=== PATIENT | female | born 1950 | race Caucasian/White ===

== ENCOUNTER → 2017-10-01 | Outpatient (CLI) | payer BC ==
[~2017-10-01] MED LIST: CALC-656 PO; CLON1TAB2 PO; DESV50TA PO; FENO135C PO; LVT.05T PO; NF-ESOM40C PO; TRM50T PO
== END ==
LOC: RAD 07:01
PROVIDERS: ATTEND Nurse Practitioner Family
DX: Z12.31 Encounter for screening mammogram for malignant neoplasm of breast (principal)
CPT/HCPCS: 77067

== ENCOUNTER 2018-01-28 10:30 | Outpatient (CLI) | payer BC ==
[~2018-01-28] VITALS: Ht 165.1 cm; Wt 72.6 kg
[2018-01-28] MEDS ORDERED: CITA40TA11 PO (10:54)
[2018-01-28] MEDS ORDERED: LEVO50TA6 PO (10:54)
[2018-01-28] MEDS ORDERED: FENO134C PO (10:54)
[2018-01-28] MEDS ORDERED: PANT40TA3 PO (10:54)
[2018-01-28] MEDS ORDERED: CLON1TAB3 PO (10:54)
== END 2018-01-28 11:06 ==
LOC: PREOP 10:30
PROVIDERS: ATTEND Specialist
DX: Z01.818 Encounter for other preprocedural examination (principal); H25.89 Other age-related cataract

== ENCOUNTER 2018-02-01 11:22 | Day surgery (SDC) | payer MEDICARE, OTHER ==
[~2018-02-01] VITALS: Ht 165.1 cm; Wt 72.6 kg
[~2018-02-01 11:22] MED LIST changes: +CITA40TA11 PO; +CLON1TAB3 PO; +FENO134C PO; +LEVO50TA6 PO; +PANT40TA3 PO
[2018-02-01] MEDS ORDERED: VANCOMYCIN/BSS (COMPOUNDED) 10 MG/ML SYR OP ONE (11:30)
[2018-02-01] MEDS ORDERED: TIMOLOL MALEATE 0.5% 5 ML (TIMOPTIC) BTL OU PRN (11:30)
[2018-02-01] MEDS ORDERED: EPINEPHrine INJECTION 1 MG/ML AMP INJ ONE (11:30)
[2018-02-01] MEDS ORDERED: POVIDONE (BETADINE) OPHTH SOLN 5% 30 ML OP ONE (11:30)
[2018-02-01 11:35] VITALS: BP 130/92
[2018-02-01] MEDS ORDERED: LIDOCAINE PF 1% 2 ML VIAL (OR ONLY) IR PRN (11:45)
[2018-02-01] MEDS: TETRACAINE 0.5% OPHTH SOLN 4 ML BTL (SINGLE DOSE ONLY) OU PRN ×4 (11:46→12:09)
[2018-02-01] MEDS: PHENYLEPHRINE 10% OPHTH (NEO-SYN) 5 ML BTL OU SCH ×3 (11:55→12:09)
[2018-02-01] MEDS: CYCLOPENTOLATE 1% (CYCLOGYL) 2 ML DROPS OP SCH ×3 (11:55→12:09)
--- NOTE | 2018-02-01 12:30 | Ophthalmologist Pre-Op Note ---
Pre-Operative Progress Note H&P Reviewed The H&P was reviewed, patient examined and no changes noted. Date H&P Reviewed: Feb 01, 2018 Time H&P Reviewed: 12:29 Pre-Op Dx Cataract, Left Eye PAYTON GILLESPIE MD Feb 01, 2018 12:30
[2018-02-01] MEDS ORDERED: MIDAZOLAM 2 MG/2 ML (VERSED) VIAL ONE (12:33)
--- NOTE | 2018-02-01 12:56 | Ophthalmology Operative Report ---
Cataract removal/placement IOL PREOPERATIVE DIAGNOSIS: Cataract Left Eye POSTOPERATIVE DIAGNOSIS: Cataract Left Eye PROCEDURE: Cataract removal and placement of posterior chamber implant, left eye SURGEON: Guy Gillespie ANESTHESIA: Topical with sedation COMPLICATIONS: None ESTIMATED BLOOD LOSS: Minimal DESCRIPTION OF PROCEDURE: After proper informed consent was obtained, the patient, a 67 female, was taken to the Operating Room and the left eye was anesthetized with tetracaine. They left eye was then prepped and draped in the usual manner. A wire lid speculum was placed. A paracentesis was made at the left hand position. Preservative free lidocaine was injected into the anterior chamber followed by viscoelastic. A clear corneal incision was made in the temporal position. A capsulorrhexis was preformed and the central nuclear and cortical material were removed. The posterior capsule was polished and Betito 27.5 [id number] IOL was placed into the capsular bag. The residual viscoelastic was aspirated and balanced saline solution was injected into the anterior chamber. 1.0 mg of Vancomycin (10mg/ 1.0ml) was injected into the anterior chamber. The wound was checked and found to be water tight. The patient tolerated the procedure well without complications. GUY GILLESPIE MD Feb 01, 2018 12:56
[2018-02-01 13:05] VITALS: BP 123/71
--- NOTE | 2018-02-01 14:19 | Anesthesia-General Post-Op ---
MAC Patient Condition Mental Status/LOC: Same as Preop Cardiovascular: Satisfactory Nausea/Vomiting: Absent Respiratory: Satisfactory Pain: Controlled Complications: Absent Post Op Complications Complications None Follow Up Care/Instructions Patient Instructions None needed. Anesthesiology Discharge Order Discharge Order Patient is doing well, no complaints, stable vital signs, no apparent adverse anesthesia problems. No complications reported per nursing. ELE BEST CRNA Feb 01, 2018 14:18
== END 2018-02-01 13:10 | disposition home or self-care (01) ==
LOC: SDC 11:22
PROVIDERS: ATTEND Specialist
DX: H26.9 Unspecified cataract (principal); R51 Headache; F32.9 Major depressive disorder, single episode, unspecified; E07.9 Disorder of thyroid, unspecified; F17.210 Nicotine dependence, cigarettes, uncomplicated; Z79.899 Other long term (current) drug therapy

== ENCOUNTER → 2018-05-31 | Outpatient (CLI) | payer MEDICARE, OTHER ==
[~2018-05-31] MED LIST changes: -CLON1TAB3 PO; +CLON1TAB4 PO
--- NOTE | 2018-05-31 08:04 | Diagnostic Imaging Report ---
Indication: Constipation. No priors. The colonic fecal load is not pathologically elevated. No dilated air-containing small bowel. The stomach was nondistended. 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 Pelvic phleboliths noted no suspicious calculi. Impression: No evidence for obstruction, impaction or substantial abnormal fecal load. No acute finding identified. Dictated by: Dictated on workstation # [id number]
== END ==
LOC: RAD 07:42
PROVIDERS: ATTEND Nurse Practitioner Family
DX: K59.00 Constipation, unspecified (principal)
CPT/HCPCS: 74018

== ENCOUNTER → 2018-08-12 | Outpatient (CLI) | payer MEDICARE, OTHER ==
[~2018-08-12] VITALS: Ht 165.1 cm; Wt 72.6 kg
[~2018-08-12] MED LIST changes: +APIX5TAB PO; +CLON1TAB13 PO; -CLON1TAB4 PO; +DOCU100T7 PO; +NS IV 1000 ML 2,000 ML ONE; +ONDANSETRON 4 MG/2 ML (SDV) Z0FRAN ONE; +PANTOPRAZOLE 40 MG (PROTONIX) VIAL IV ONE; +PANTOPRAZOLE 40 MG (PROTONIX) VIAL ONE; +water pill PO
[2018-08-12] MEDS: NS IV 1000 ML 1,000 ML IV SCH ×2 (10:44→11:41)
[2018-08-12] MEDS: ONDANSETRON 4 MG/2 ML (SDV) Z0FRAN IV PRN ×2 (10:45→11:31)
[2018-08-12 11:53] VITALS: BP 104/62
== END ==
LOC: SDC 10:00
PROVIDERS: ATTEND Nurse Practitioner Family
DX: R11.2 Nausea with vomiting, unspecified (principal); E86.0 Dehydration
CPT/HCPCS: 96361; 96374; 96375

== ENCOUNTER 2018-08-13 11:34 | Day surgery (SDC) | payer MEDICARE, OTHER ==
[~2018-08-13] VITALS: Ht 165.1 cm; Wt 72.6 kg
[~2018-08-13 11:34] MED LIST changes: -APIX5TAB PO; -DOCU100T7 PO; -NS IV 1000 ML 2,000 ML ONE; -ONDANSETRON 4 MG/2 ML (SDV) Z0FRAN ONE; -PANTOPRAZOLE 40 MG (PROTONIX) VIAL IV ONE; -PANTOPRAZOLE 40 MG (PROTONIX) VIAL ONE; -water pill PO
[2018-08-13] MEDS ORDERED: NS IV 500 ML 500 ML IV PRN (11:44)
[2018-08-13] MEDS ORDERED: fentaNYL INJECTION 100 MCG/2 ML AMP IVP ONE (11:45)
[2018-08-13] MEDS ORDERED: HURRICAINE EXT TUBE (BENZOCAINE) XX PRN (11:45)
[2018-08-13] MEDS ORDERED: MIDAZOLAM 2 MG/2 ML (VERSED) VIAL IVP ONE (11:45)
[2018-08-13] MEDS ORDERED: NS IV 500 ML 500 ML ONE (11:53)
--- OUTSIDE RECORDS SUMMARY | 2018-08-13 12:11 | XMS REPORT | Clinical Summary ---
Author Author [facility] Organization [facility] Address Unknown Phone Unavailable Care Team Providers Care Relief Worker Name Role Phone Jeny Garcia MD PCP Source Comments Some departments are not documenting in the electronic medical record. If you do not see the information that you expected, contact Release of Information in the Health Information Management department at [phone] for further assistance in locating additional records.[facility] Allergies Active Allergy Reactions Severity Noted Date Comments Codeine VOMITING Low Current Medications Prescription Sig. Disp. Refills Start End Date Status Date clonazePAM (KLONOPIN) 1 Take 1 tablet by mouth Active mg tablet daily as needed for panic attacks HYDROcodone/acetaminophen Take 1 tablet by mouth 06/27/20 Active (+) (NORCO) 10/325 mg every 6 hours as needed 18 tablet levothyroxine (SYNTHROID) Take 50 mcg by mouth 03/22/20 Active 50 mcg tablet daily 30 minutes before [address] Take 40 mg by mouth 03/22/20 Active (PROTONIX) 40 mg tablet daily. 18 calcium carbonate (TUMS) Chew 1 tablet by mouth Active 500 mg (200 mg elemental twice daily. calcium) chewable tablet nicotine (NICODERM CQ Apply 1 patch to top of Active STEP 1) 21 mg/day patch skin as directed every 24 hours. acetaminophen (TYLENOL) Take 1 tablet by mouth Active 325 mg tablet every 6 hours as needed (headache). docusate (COLACE) 100 mg Take 100 mg by mouth Active capsule twice daily. ergocalciferol (VITAMIN Take 1 capsule by mouth Active D-2) 50,000 unit capsule every . carboxymethylcellulose Apply 1 drop to both eyes Active (REFRESH PLUS) 0.5 % dpet as Needed. apixaban (ELIQUIS) 5 mg Take one tablet by mouth 60 tablet 3 07/08/20 Active tablet twice daily. 18 furosemide (LASIX) 40 mg Take one tablet by mouth 90 tablet 3 Active tablet every morning. 18 Active Problems Problem Noted Date Bilateral ureteral obstruction 08/02/2018 Anxiety 07/07/2018 Major depressive disorder with single episode, in remission ([facility]) 07/07/2018 Gastroesophageal reflux disease without esophagitis 07/07/2018 Hypothyroidism due to acquired atrophy of thyroid 07/07/2018 Vitamin D deficiency 07/07/2018 MEE (acute kidney injury) ([facility]) 07/07/2018 Pyuria 07/07/2018 Volume overload 07/07/2018 Acute deep vein thrombosis (DVT) of distal end of right lower extremity ([facility]) Debility 07/07/2018 Obesity (BMI 30-39.9) 07/07/2018 Hydronephrosis 07/01/2018 Overview: Bilateral hydronephrosis found upon presentation 06/03/18 with Cr >9 Bilateral ureteral stent placement Subsequent left nephrostomy tube placement Distal ureteral narrowing without obstructing lesion or definitive external compression Abnormal and asymmetric thickening of bladder L ast Assessment & Plan: Reviewed summary of findings. Discussed that the split function on the nuclear medicine scan may be inaccurate given the severe MEE present at the time. Additionally, her right urine output may be refluxing due to the presence of stents, which is why the vast majority of her urine at this time is draining through her left nephrostomy tube. Reviewed desire to remove bilateral ureteral stents, although this will require placing a right nephrostomy tube prior. Once stents have been removed, eventually will plan to proceed with antegrade and retrograde pyelograms for delineation of anatomy. Will want time for ureteral inflammation to subside prior to pursuing imaging. Will reevaluate bladder anatomy with cystoscopy at that time. Also schedule patient for urodynamics studies, given markedly thickened bladder, to rule out bladder pathology as etiology for upper tract deterioration. Obstructive uropathy 07/01/2018 Bilateral leg edema 07/01/2018 Encounters Date Type Specialty Care Team Description 07/30/2018 Office Visit Oncology Perry Moseley MD Bilateral ureteral obstruction 07/30/2018 Prep for Case Oncology Perry Moseley MD Bilateral ureteral obstruction (Primary Dx) 07/01/2018 [facility] Darrick Lazo MD Obstructive uropathy - Encounter Magan Garcia MD 07/08/2018 Estela Ghosh DO Ho, Trang, MD 07/01/2018 Office Visit Urology Perry Moseley MD Hydronephrosis, unspecified hydronephrosis type 07/01/2018 Procedure Pass 06/27/2018 Ancillary Radiology Outpatient, Radiologist Diagnosis unknown Orders 06/25/2018 Hospital Radiology Encounter 06/24/2018 Hospital Radiology Encounter 06/22/2018 Hospital Radiology Encounter 06/19/2018 Hospital Radiology Encounter 06/19/2018 Hospital Radiology Encounter 06/17/2018 Hospital Radiology Encounter 06/15/2018 Hospital Radiology Encounter 06/10/2018 Hospital Radiology Encounter 06/05/2018 Hospital Radiology Encounter 06/04/2018 Hospital Radiology Encounter 06/03/2018 Hospital Radiology Encounter from Last 3 Months Family History Medical History Relation Name Comments Cancer Mother Cancer Sister Relation Name Status Comments Mother Sister Social History Tobacco Use Types Packs/Day Years Used Date Former Smoker Quit: 06/03/2018 Smokeless Tobacco: Never Used Alcohol Use Drinks/Week oz/Week Comments No Sex Assigned at Date Recorded Not on file Last Filed Vital Signs Vital Sign Reading Time Taken Blood Pressure 124/73 07/30/2018 12:54 PM CDT Pulse 94 07/30/2018 12:54 PM CDT Temperature 36.7 C (98 F) 07/30/2018 12:54 PM CDT Respiratory Rate 18 07/30/2018 12:54 PM CDT Oxygen Saturation 100% 07/30/2018 12:54 PM CDT Inhaled Oxygen - - Concentration Weight 75.1 kg (165 lb 9.6 oz) 07/30/2018 12:54 PM CDT Height 162.6 cm (5' 4") 07/30/2018 12:54 PM CDT Body Mass Index 28.43 07/30/2018 12:54 PM CDT Plan of Treatment Date Type Specialty Care Team Description 08/23/2018 Surgery Perry Moseley MD CYSTOURETHROSCOPY WITH [address] URETERAL CATHETERIZATION [address] WITH/ WITHOUT IRRIGATION/ [place] [address] INSTILLATION/ [phone] URETEROPYELOGRAPHY 08/23/2018 Procedure Pass 08/23/2018 Hospital Perry Moseley MD Bilateral ureteral Encounter [address] obstruction [address] [place] [address] [phone] Health Maintenance Due Date Last Done Comments HEPATITIS C SCREENING 1952 PHYSICAL (COMPREHENSIVE) 1959 EXAM PERTUSSIS VACCINE 1963 HIV SCREENING 1967 TETANUS VACCINE 1969 BREAST CANCER SCREENING 1992 COLORECTAL CANCER 2002 SCREENING SHINGLES RECOMBINANT 2002 VACCINE (1 of 2) OSTEOPOROSIS SCREENING 2017 PNEUMONIA (PCV13/PPSV23) 2017 VACCINES (1 of 2 - PCV13) INFLUENZA VACCINE 06/12/2018 Procedures Procedure Name Priority Date/Time Associated Diagnosis Comments COMPREHENSIVE METABOLIC Routine 07/08/2018 Results for this PANEL 5:46 AM CDT procedure are in the results section. CBC AND DIFF Routine 07/08/2018 Results for this 5:46 AM CDT procedure are in the results section. COMPREHENSIVE METABOLIC Routine 07/07/2018 Results for this PANEL 6:06 AM CDT procedure are in the results section. CBC AND DIFF Routine 07/07/2018 Results for this 6:06 AM CDT procedure are in the results section. COMPREHENSIVE METABOLIC Routine 07/06/2018 Results for this PANEL 4:13 AM CDT procedure are in the results section. CBC AND DIFF Routine 07/06/2018 Results for this 4:13 AM CDT procedure are in the results section. COMPREHENSIVE METABOLIC Routine 07/05/2018 Results for this PANEL 5:52 AM CDT procedure are in the results section. CBC AND DIFF Routine 07/05/2018 Results for this 5:52 AM CDT procedure are in the results section. IR CENTRAL VENOUS Routine 07/04/2018 Results for this CATHETER 4:45 PM CDT procedure are in the results section. IR VENOUS Routine 07/04/2018 Results for this DIAGNOSTIC/INTERVENTION 9:07 AM CDT procedure are in the results section. COMPREHENSIVE METABOLIC Routine 07/04/2018 Results for this PANEL 6:03 AM CDT procedure are in the results section. CBC AND DIFF Routine 07/04/2018 Results for this 6:03 AM CDT procedure are in the results section. PROTEIN/CR RATIO,UR RAN Routine 07/03/2018 Results for this 2:00 PM CDT procedure are in the results section. IRON + BINDING CAPACITY + Routine 07/03/2018 Results for this %SAT+ FERRITIN 6:43 AM CDT procedure are in the results section. COMPREHENSIVE METABOLIC Routine 07/03/2018 Results for this PANEL 6:43 AM CDT procedure are in the results section. CBC AND DIFF Routine 07/03/2018 Results for this 6:43 AM CDT procedure are in the results section. IR ASPIRATION/DRAIN Routine 07/02/2018 Results for this 12:13 PM CDT procedure are in the results section. 2-D + DOPPLER Routine 07/02/2018 Results for this ECHOCARDIOGRAM 9:09 AM CDT procedure are in the results section. TSH WITH FREE T4 REFLEX Routine 07/02/2018 Results for this 6:18 AM CDT procedure are in the results section. BNP (B-TYPE NATRIURETIC Routine 07/02/2018 Results for this PEPTI) 6:18 AM CDT procedure are in the results section. PHOSPHORUS Routine 07/02/2018 Results for this 6:18 AM CDT procedure are in the results section. MAGNESIUM Routine 07/02/2018 Results for this 6:18 AM CDT procedure are in the results section. COMPREHENSIVE METABOLIC Routine 07/02/2018 Results for this PANEL 6:18 AM CDT procedure are in the results section. CBC AND DIFF Routine 07/02/2018 Results for this 6:18 AM CDT procedure are in the results section. CHEST SINGLE VIEW Routine 07/02/2018 Results for this 6:07 AM CDT procedure are in the results section. US DOPPLER VENOUS W EXTRM Routine 07/01/2018 Results for this BILAT 10:23 PM CDT procedure are in the results section. CT ABD/PELV WO CONTRAST STAT 07/01/2018 Results for this 4:16 PM CDT procedure are in the results section. ECG-SCAN 07/01/2018 Results for this 2:40 PM CDT procedure are in the results section. BNP POC ER 07/01/2018 Results for this 2:31 PM CDT procedure are in the results section. POC TROPONIN 07/01/2018 Results for this 2:31 PM CDT procedure are in the results section. UA REFLEX CULTURE LABEL STAT 07/01/2018 Results for this 2:30 PM CDT procedure are in the results section. URINALYSIS MICROSCOPIC STAT 07/01/2018 Results for this REFLEX TO CULTURE 2:30 PM CDT procedure are in the results section. URINALYSIS DIPSTICK STAT 07/01/2018 Results for this REFLEX TO CULTURE 2:30 PM CDT procedure are in the results section. CULTURE-URINE 07/01/2018 Results for this W/SENSITIVITY 2:30 PM CDT procedure are in the results section. ECG 12-LEAD STAT 07/01/2018 2:25 PM CDT MAGNESIUM STAT 07/01/2018 Results for this 1:35 PM CDT procedure are in the results section. COMPREHENSIVE METABOLIC STAT 07/01/2018 Results for this PANEL 1:35 PM CDT procedure are in the results section. CBC AND DIFF STAT 07/01/2018 Results for this 1:35 PM CDT procedure are in the results section. MRI PELVIS EXTERNAL Routine 06/25/2018 Diagnosis unknown Results for this IMAGING 12:00 AM CDT procedure are in the results section. US ABDOMEN EXTERNAL Routine 06/24/2018 Diagnosis unknown Results for this IMAGING 12:00 AM CDT procedure are in the results section. US VENOUS DOPPLER Routine 06/22/2018 Diagnosis unknown Results for this EXTERNAL IMAGING 12:00 AM CDT procedure are in the results section. IR MISC EXTERNAL IMAGING Routine 06/19/2018 Diagnosis unknown Results for this 12:15 AM CDT procedure are in the results section. CT ABD/PEL EXTERNAL Routine 06/19/2018 Diagnosis unknown Results for this IMAGING 12:00 AM CDT procedure are in the results section. NM MISC EXTERNAL IMAGING Routine 06/17/2018 Diagnosis unknown Results for this 12:00 AM CDT procedure are in the results section. US ABDOMEN EXTERNAL Routine 06/15/2018 Diagnosis unknown Results for this IMAGING 12:00 AM CDT procedure are in the results section. US ABDOMEN EXTERNAL Routine 06/10/2018 Diagnosis unknown Results for this IMAGING 12:00 AM CDT procedure are in the results section. IR MISC EXTERNAL IMAGING Routine 06/05/2018 Diagnosis unknown Results for this 12:00 AM CDT procedure are in the results section. IR MISC EXTERNAL IMAGING Routine 06/04/2018 Diagnosis unknown Results for this 12:00 AM CDT procedure are in the results section. CT ABD/PEL EXTERNAL Routine 06/03/2018 Diagnosis unknown Results for this IMAGING 12:00 AM CDT procedure are in the results section. from Last 3 Months Results * CBC AND DIFF (07/08/2018 5:46 AM) Only the most recent of 8 results within the time period is included. White Blood Cells 8.4 4.5 - 11.0 K/UL [facility] RBC 3.26 (L) 4.0 - 5.0 M/UL [facility] Hemoglobin 9.4 (L) 12.0 - 15.0 GM/DL [facility] Hematocrit 28.5 (L) 36 - 45 % [facility] MCV 87.4 80 - 100 FL [facility] MCH 28.8 26 - 34 PG [facility] MCHC 33.0 32.0 - 36.0 G/DL [facility] RDW 16.0 (H) 11 - 15 % [facility] Platelet Count 375 150 - 400 K/UL [facility] MPV 7.6 7 - 11 FL [facility] Neutrophils 68 41 - 77 % [facility] Lymphocytes 19 (L) 24 - 44 % [facility] Monocytes 9 4 - 12 % [facility] Eosinophils 3 0 - 5 % [facility] Basophils 1 0 - 2 % [facility] Absolute Neutrophil Count 5.80 1.8 - 7.0 K/UL [facility] Absolute Lymph Count 1.60 1.0 - 4.8 K/UL [facility] Absolute Monocyte Count 0.70 0 - 0.80 K/UL [facility] Absolute Eosinophil Count 0.30 0 - 0.45 K/UL [facility] Absolute Basophil Count 0.10 0 - 0.20 K/UL [facility] Specimen Blood Performing Organization Address City/State/Zipcode Phone Number [facility] [address] [place] [address] * COMPREHENSIVE METABOLIC PANEL (07/08/2018 5:46 AM) Only the most recent of 8 results within the time period is included. Sodium 136 (L) 137 - 147 MMOL/L [facility] Potassium 3.6 3.5 - 5.1 MMOL/L [facility] Chloride 100 98 - 110 MMOL/L [facility] Glucose 109 (H) 70 - 100 MG/DL [facility] Blood Urea Nitrogen 35 (H) 7 - 25 MG/DL [facility] Creatinine 1.44 (H) 0.4 - 1.00 MG/DL [facility] Calcium 9.5 8.5 - 10.6 MG/DL [facility] Total Protein 6.8 6.0 - 8.0 G/DL [facility] Total Bilirubin 0.4 0.3 - 1.2 MG/DL [facility] Albumin 3.6 3.5 - 5.0 G/DL [facility] Alk Phosphatase 52 25 - 110 U/L [facility] AST (SGOT) 13 7 - 40 U/L [facility] CO2 26 21 - 30 MMOL/L [facility] ALT (SGPT) 6 (L) 7 - 56 U/L [facility] Anion Gap 10 3 - 12 [facility] eGFR Non 37 (L) >60 mL/min [facility] Comment: The eGFR is not validated for use in drug dosing adjustments.Continue to use estimated creatinine clearance per dosing reference text.Please contact the Clinical Pharmacist for questions. eGFR 44 (L) >60 mL/min [facility] Comment: The eGFR is not validated for use in drug dosing adjustments.Continue to use estimated creatinine clearance per dosing reference text.Please contact the Clinical Pharmacist for questions. Specimen Blood Performing Organization Address City/State/Zipcode Phone Number [facility] [address] [place] [address] * IR CENTRAL VENOUS CATHETER (07/04/2018 4:45 PM) Impressions Performed At Uneventful removal of tunneled right IJ catheter as described. [facility] I, Gilberto Karimi M.D, the attending radiologist, was present for the critical and diamond portions of the procedure with a midlevel, resident, and/or fellow participating.Overlapping portions were non diamond and I was immediately available.I interpret the critical and diamond portion of this procedure to have been catheter removal. @TT Approved by KATLIN Still on 07/04/2018 4:47 PM By my electronic signature, I attest that I have personally reviewed the images for this examination and formulated the interpretations and opinions expressed in this report Finalized by Gilberto Karimi M.D. on 07/05/2018 9:00 AM. Dictated by KATLIN Still on 07/04/2018 4:47 PM. Narrative Performed At TUNNELED CATHETER REMOVAL [facility] CLINICAL INDICATION: Completion of therapy. OPERATORS:KATLIN Still;Gilberto Karimi M.D. ANESTHESIA:15 mL 1% lidocaine subcutaneous CATHETER SITE:Right internal jugular vein TECHNIQUE: The risks, benefits, and alternatives to the procedure were explained to the patient.Written informed consent was obtained. The existing catheter was prepped and draped in sterile fashion. The heparin or alternative packing solution was aspirated from each lumen and the ports flushed with saline. 1% lidocaine was injected into the skin at the catheter exit site and up to the antimicrobial cuff. Using blunt dissection, the cuff was dissected free. The catheter was removed, and hemostasis achieved with manual compression at both the venotomy and dermatotomy sites. A sterile, occlusive dressing was placed at the tunnel exit site.The procedure was well tolerated, and the patient discharged to the holding area in satisfactory condition. FINDINGS: 1. There is no gross evidence for tunnel tract or exit site infection. 2. The catheter cuff is intact and completely removed. Procedure Note Interface, Radiant Results - 07/05/2018 9:03 AM CDT TUNNELED CATHETER REMOVAL CLINICAL INDICATION: Completion of therapy. OPERATORS: KATLIN Still; Gilberto Karimi M.D. ANESTHESIA: 15 mL 1% lidocaine subcutaneous CATHETER SITE: Right internal jugular vein TECHNIQUE: The risks, benefits, and alternatives to the procedure were explained to the patient. Written informed consent was obtained. The existing catheter was prepped and draped in sterile fashion. The heparin or alternative packing solution was aspirated from each lumen and the ports flushed with saline. 1% lidocaine was injected into the skin at the catheter exit site and up to the antimicrobial cuff. Using blunt dissection, the cuff was dissected free. The catheter was removed, and hemostasis achieved with manual compression at both the venotomy and dermatotomy sites. A sterile, occlusive dressing was placed at the tunnel exit site. The procedure was well tolerated, and the patient discharged to the holding area in satisfactory condition. FINDINGS: 1. There is no gross evidence for tunnel tract or exit site infection. 2. The catheter cuff is intact and completely removed. IMPRESSION Uneventful removal of tunneled right IJ catheter as described. I, Gilberto Karimi M.D, the attending radiologist, was present for the critical and diamond portions of the procedure with a midlevel, resident, and/or fellow participating. Overlapping portions were non diamond and I was immediately available. I interpret the critical and diamond portion of this procedure to have been catheter removal. @TT Approved by KATLIN Still on 07/04/2018 4:47 PM By my electronic signature, I attest that I have personally reviewed the images for this examination and formulated the interpretations and opinions expressed in this report Finalized by Gilberto Karimi M.D. on 07/05/2018 9:00 AM. Dictated by KATLIN Still on 07/04/2018 4:47 PM. Performing Organization Address City/State/Zipcode Phone Number [facility] * IR VENOUS DIAGNOSTIC/INTERVENTION (07/04/2018 9:07 AM) Impressions Performed At 1.Unremarkable inferior venacavogram as described above. [facility] I, Lam Polo M.D, the attending radiologist, was present for the critical and diamond portions of the procedure with a midlevel, resident, and/or fellow participating.Overlapping portions were non diamond and I was immediately available.I interpret the critical and diamond portion of this procedure to have been venacavogram. @TT 1. Approved by Jed Dsouza MD on 07/04/2018 9:25 AM By my electronic signature, I attest that I have personally reviewed the images for this examination and formulated the interpretations and opinions expressed in this report Finalized by LAM POLO on 07/04/2018 3:12 PM. Dictated by Jed Dsouza MD on 07/04/2018 9:13 AM. Narrative Performed At Inferior venacavogram: [facility] Indication: 67-year-old female with bilateral lower extremity edema, concern for possible IVC compression. Operators: Ash Weeks M.D. Sedation Medication:I was personally responsible for the administration of moderate sedation services during the procedure performed and I confirm requirements described in CPT section on moderate sedation were followed, including the use of an independent trained observer who had no other duties during the procedure.The total supervised sedation time was 33 minutes.See nursing log for complete details; the drugs utilized were: 2 mg IV Versed; 100 mcg IV Fentanyl. Access: Right common femoral vein Procedure: Informed written consent was obtained from the patient, explaining the risks, benefits, and alternatives of the procedure and conscious sedation. With patient in the supine position, the patient's right groin was prepped and draped in the usual sterile fashion. Maximum sterile barrier technique was performed. Ultrasound of the right common femoral vein was performed demonstrating patency. Ultrasound image demonstrating patency of the right common femoral vein was saved and documented in PACS. The skin and subcutaneous tissues overlying the vein were infiltrated with 2% Lidocaine without epinephrine.Under ultrasound guidance, the right common femoral vein was accessed with a micropuncture needle. Access was maintained with a 6 Bangladeshi sheath. A 5 Bangladeshi pigtail catheter was advanced over a 0.035 Bentson wire and positioned in the distal inferior vena cava at the L5 level above the iliac bifurcation. Digital subtraction angiography was performed using CO2. Following the diagnostic study the pigtail catheter was removed over a wire. The sheath was removed and hemostasis was achieved with manual pressure. Sterile bandage was applied. The patient tolerated the procedure well and was transferred to the post procedure care area in stable condition. There were no immediate complications. Findings: *Widely patent inferior vena cava, with no treatable stenosis or flow limiting occlusion. Procedure Note Interface, Radiant Results - 07/04/2018 3:15 PM CDT Inferior venacavogram: Indication: 67-year-old female with bilateral lower extremity edema, concern for possible IVC compression. Operators: Ash Weeks M.D. Sedation Medication: I was personally responsible for the administration of moderate sedation services during the procedure performed and I confirm requirements described in CPT section on moderate sedation were followed, including the use of an independent trained observer who had no other duties during the procedure. The total supervised sedation time was 33 minutes. See nursing log for complete details; the drugs utilized were: 2 mg IV Versed; 100 mcg IV Fentanyl. Access: Right common femoral vein Procedure: Informed written consent was obtained from the patient, explaining the risks, benefits, and alternatives of the procedure and conscious sedation. With patient in the supine position, the patient's right groin was prepped and draped in the usual sterile fashion. Maximum sterile barrier technique was performed. Ultrasound of the right common femoral vein was performed demonstrating patency. Ultrasound image demonstrating patency of the right common femoral vein was saved and documented in PACS. The skin and subcutaneous tissues overlying the vein were infiltrated with 2% Lidocaine without epinephrine. Under ultrasound guidance, the right common femoral vein was accessed with a micropuncture needle. Access was maintained with a 6 Bangladeshi sheath. A 5 Bangladeshi pigtail catheter was advanced over a 0.035 Bentson wire and positioned in the distal inferior vena cava at the L5 level above the iliac bifurcation. Digital subtraction angiography was performed using CO2. Following the diagnostic study the pigtail catheter was removed over a wire. The sheath was removed and hemostasis was achieved with manual pressure. Sterile bandage was applied. The patient tolerated the procedure well and was transferred to the post procedure care area in stable condition. There were no immediate complications. Findings: * Widely patent inferior vena cava, with no treatable stenosis or flow limiting occlusion. IMPRESSION 1. Unremarkable inferior venacavogram as described above. I, Lam Polo M.D, the attending radiologist, was present for the critical and diamond portions of the procedure with a midlevel, resident, and/or fellow participating. Overlapping portions were non diamond and I was immediately available. I interpret the critical and diamond portion of this procedure to have been venacavogram. @TT 1. Approved by Jed Dsouza MD on 07/04/2018 9:25 AM By my electronic signature, I attest that I have personally reviewed the images for this examination and formulated the interpretations and opinions expressed in this report Finalized by LAM POLO on 07/04/2018 3:12 PM. Dictated by Jed Dsouza MD on 07/04/2018 9:13 AM. Performing Organization Address [facility] Facility[facility] Priceid Phone Number [facility] * PROTEIN/CR RATIO,UR RAN (07/03/2018 2:00 PM) Protein, Random 10 MG/DL [facility] Creatinine, Random 32 MG/DL [facility] Protein/CR ratio 0.3 [facility] Specimen Urine - Urine Performing Organization Address [facility] Phone Number MA[facility] LAB [address] [place] [address] * IRON + BINDING CAPACITY + %SAT+ FERRITIN (07/03/2018 6:43 AM) Iron 38 (L) 50 - 160 MCG/DL [facility] Iron Binding-TIBC 285 270 - 380 MCG/DL [facility] % Saturation 13 (L) 28 - 42 % [facility] Ferritin 590 (H) 10 - 200 NG/ML [facility] Specimen Blood Performing Organization Address [facility] Phone Number [facility] [address] [place] [address] * IR ASPIRATION/DRAIN (07/02/2018 12:13 PM) Impressions Performed At Unremarkable right-sided percutaneous nephrostomy as described. [facility] Marked hydronephrosis. Approved by Jed Dsouza MD on 07/02/2018 12:29 PM By my electronic signature, I attest that I have personally reviewed the images for this examination and formulated the interpretations and opinions expressed in this report Finalized by Tre Franco M.D. on 07/02/2018 1:09 PM. Dictated by Jed Dsouza MD on 07/02/2018 12:26 PM. Narrative Performed At Right-sided percutaneous nephrostomy: [facility] RES[facility] History: 67-year-old female with and obstructive uropathy and bilateral hydronephrosis. Technique: Steven Quiñones M.D, the attending radiologist, was present for the critical and diamond portions of the procedure with a midlevel, resident, and/or fellow participating.Overlapping portions were non diamond and I was immediately available.I interpret the critical and diamond portion of this procedure to have been needle access. The procedure including risks, alternatives and benefits was explained the patient. The patient provided written and verbal consent. The patient was placed prone on the examination table. The right flank was prepped and draped in normal sterile fashion. 1% lidocaine was used anesthetize the local soft tissues.Under ultrasound guidance, a 22-gauge Chiba needle was advanced into a posterior calyx. Contrast was used to opacify the collecting system. A dermatotomy was made with an 11 blade scalpel. An Grebs set was advanced over a Microvena wire into the proximal ureter. The inner portion of the Grebs set was then removed and exchanged for an Amplatz wire. The outer Grebs set was then removed and an 8 Bangladeshi pigtail catheter was advanced into the renal pelvis. The Vanduser loop was formed. Contrast was instilled into the collecting system to perform an antegrade nephrostogram. The position was adequate and marked hydronephrosis was noted. The catheter was secured to skin with 2-0 Ethylon and attached to a drainage bag. Patient tolerated the procedure well and left the department in stable condition. Total absorbed x-ray dose: 42 mGy Sedation Medication:I was personally responsible for the administration of moderate sedation services during the procedure performed and I confirm requirements described in CPT section on moderate sedation were followed, including the use of an independent trained observer who had no other duties during the procedure.The total supervised sedation time was 13 minutes.See nursing log for complete details; the drugs utilized were: 2 mg IV Versed; 100 mcg IV Fentanyl. Procedure Note Interface, Radiant Results - 07/02/2018 1:12 PM CDT Right-sided percutaneous nephrostomy: History: 67-year-old female with and obstructive uropathy and bilateral hydronephrosis. Technique: I, Steven Franco M.D, the attending radiologist, was present for the critical and diamond portions of the procedure with a midlevel, resident, and/or fellow participating. Overlapping portions were non diamond and I was immediately available. I interpret the critical and diamond portion of this procedure to have been needle access. The procedure including risks, alternatives and benefits was explained the patient. The patient provided written and verbal consent. The patient was placed prone on the examination table. The right flank was prepped and draped in normal sterile fashion. 1% lidocaine was used anesthetize the local soft tissues. Under ultrasound guidance, a 22-gauge Chiba needle was advanced into a posterior calyx. Contrast was used to opacify the collecting system. A dermatotomy was made with an 11 blade scalpel. An Grebs set was advanced over a Microvena wire into the proximal ureter. The inner portion of the Grebs set was then removed and exchanged for an Amplatz wire. The outer Grebs set was then removed and an 8 Bangladeshi pigtail catheter was advanced into the renal pelvis. The Vanduser loop was formed. Contrast was instilled into the collecting system to perform an antegrade nephrostogram. The position was adequate and marked hydronephrosis was noted. The catheter was secured to skin with 2-0 Ethylon and attached to a drainage bag. Patient tolerated the procedure well and left the department in stable condition. Total absorbed x-ray dose: 42 mGy Sedation Medication: I was personally responsible for the administration of moderate sedation services during the procedure performed and I confirm requirements described in CPT section on moderate sedation were followed, including the use of an independent trained observer who had no other duties during the procedure. The total supervised sedation time was 13 minutes. See nursing log for complete details; the drugs utilized were: 2 mg IV Versed; 100 mcg IV Fentanyl. IMPRESSION Unremarkable right-sided percutaneous nephrostomy as described. Marked hydronephrosis. Approved by Jed Dsouza MD on 07/02/2018 12:29 PM By my electronic signature, I attest that I have personally reviewed the images for this examination and formulated the interpretations and opinions expressed in this report Finalized by Tre Franco M.D. on 07/02/2018 1:09 PM. Dictated by Jed Dsouza MD on 07/02/2018 12:26 PM. Performing Organization Address City/State/Zipcode Phone Number [facility] * 2-D + DOPPLER ECHOCARDIOGRAM (07/02/2018 9:09 AM) IVS 1.25 0.6 - 0.9 cm OTHER OUTSIDE LAB LVIDD 3.87 3.8 - 5.2 cm OTHER OUTSIDE LAB LVIDS 3.60 2.2 - 3.5 cm OTHER OUT[facility] PW 1.00 0.6 - 0.9 cm OTHER OUTSIDE LAB TDI e' 0.09 m/s OTHER OUTSIDE LAB Right Ventricular Mid 2.85 1.9 - 3.5 cm OTHER OUTSIDE LAB Diameter LA size 2.49 2.7 - 3.8 cm OTHER OUTSIDE LAB LA volume 36.18 22 - 52 mL OTHER OUTSIDE LAB Right Atrial Area 9.41 <18 cm2 OTHER OUTSIDE LAB Right Atrial Major 3.97 2.2 - 2.8 cm OTHER OUTSIDE LAB Dimension and a peak gradient of 12.21 mmHg OTHER OUTSIDE LAB AV peak velocity 1.75 m/s OTHER OUTSIDE LAB MV Peak A Santy 0.66 m/s OTHER OUTSIDE LAB MV Peak E Santy PW 0.63 m/s OTHER OUTSIDE LAB Right Ventricular Basal 3.80 2.5 - 4.1 cm OTHER OUTSIDE LAB Diameter Right Heart Systolic 2.03 >1.7 cm OTHER OUTSIDE LAB Mmode TAPSE Sinus 3.22 2.7 - 3.3 cm OTHER OUTSIDE LAB BSA 1.96 m2 OTHER OUTSIDE LAB FS 6.98 28 - 44 % OTHER OUTSIDE LAB EF 11.87 % OTHER OUTSIDE LAB Left Atrium Index 18.46 16 - 34 OTHER OUTSIDE LAB E/A ratio 0.95 OTHER [facility]IDE LAB E/E' ratio 7.00 OTHER OUTSIDE LAB LV mass 143.09 66 - 150 g OTHER OUTSIDE LAB RWT 0.52 <=0.42 OTHER OUTSIDE LAB TV rest pulmonary artery 18 mmHg OTHER OUTSIDE LAB pressure Right Heart Systolic TDI 0.100 m/s OTHER OUTSIDE LAB S' Cardiology Ultrasound Siemens [id number] OTHER OUTSIDE LAB Machine Left Ventricle Mass Index 73.00 44 - 88 g/m2 OTHER OUTSIDE LAB ECHO EF 60 % OTHER OUTSIDE LAB Narrative Performed At OTHER OUTSIDE LAB Rest Echo: Overall left ventricular systolic function is normal. EF~ 60% No regional wall motion abnormalities identified Valves appear structurally normal for age without signficant stenosis or regurgitation No significant pericardial effusion Normal chamber dimensions Mild LVH Normal diastolic function Normal aortic root dimensions Estimated peak systolic PA pressure=18 mmHg Performing Organization Address [facility] Phone Number OTHER OUTSIDE LAB * TSH WITH FREE T4 REFLEX (07/02/2018 6:18 AM) TSH 2.360 0.35 - 5.00 MCU/ML [facility] Specimen Blood Performing Organization Address [facility] Phone Number [facility] [address] [place] [address] * PHOSPHORUS (07/02/2018 6:18 AM) Phosphorus 4.9 (H) 2.0 - 4.0 MG/DL [facility] Specimen Blood Performing Organization Address [facility] Phone Number [facility] [address] [place] [address] * BNP (B-TYPE NATRIURETIC PEPTI) (07/02/2018 6:18 AM) B Type Natriuretic 71.0 0 - 100 PG/ML [facility] Peptide Specimen Blood Performing Organization Address [facility] Phone Number MAIN LAB [address] [place] [address] * MAGNESIUM (07/02/2018 6:18 AM) Only the most recent of 2 results within the time period is included. Magnesium 2.0 1.6 - 2.6 mg/dL [facility] Specimen Blood Performing Organization Address [facility] Phone Number [facility] [address] [place] [address] * CHEST SINGLE VIEW (07/02/2018 6:07 AM) Impressions Performed At No acute cardiopulmonary abnormality. [facility] Approved by Kyler Unger M.D. on 07/02/2018 10:36 AM By my electronic signature, I attest that I have personally reviewed the images for this examination and formulated the interpretations and opinions expressed in this report Finalized by Harriet Thorne M.D. on 07/02/2018 10:37 AM. Dictated by Kyler Unger M.D. on 07/02/2018 9:03 AM. Narrative Performed At CHEST SINGLE VIEW [facility] RES[facility] Clinical Indication: Female, 67 years old. Dyspnea. Comparison: No prior exam is available for comparison. Correlation is made to outside CT abdomen/pelvis dated July 01, 2018. Findings: A right IJ central venous catheter is in place with distal tip overlying the upper right atrium. The heart size is normal without pulmonary venous congestion. There is no pleural effusion, consolidating pneumonia, or pneumothorax. Procedure Note Interface, Radiant Results - 07/02/2018 10:41 AM CDT CHEST SINGLE VIEW Clinical Indication: Female, 67 years old. Dyspnea. Comparison: No prior exam is available for comparison. Correlation is made to outside CT abdomen/pelvis dated July 01, 2018. Findings: A right IJ central venous catheter is in place with distal tip overlying the upper right atrium. The heart size is normal without pulmonary venous congestion. There is no pleural effusion, consolidating pneumonia, or pneumothorax. IMPRESSION No acute cardiopulmonary abnormality. Approved by Kyler Unger M.D. on 07/02/2018 10:36 AM By my electronic signature, I attest that I have personally reviewed the images for this examination and formulated the interpretations and opinions expressed in this report Finalized by Harriet Thorne M.D. on 07/02/2018 10:37 AM. Dictated by Kyler Unger M.D. on 07/02/2018 9:03 AM. Performing Organization Address City/State/Zipcode Phone Number [facility] * US DOPPLER VENOUS W EXTRRamiro BILKERMIT (07/01/2018 10:23 PM) Impressions Performed At 1.Occlusive, subacute appearing thrombus within one of the duplicated right [facility] popliteal veins. 2.No evidence of femoral/popliteal DVT in the left lower extremity. 3.Small right Fair's cyst redemonstrated. 4.Moderate bilateral subcutaneous edema, mainly at the calves. 5.Mildly prominent, reactive appearing bilateral inguinal lymph nodes. Preliminary findings were discussed with Magan Garcia MD at 10:44 PM on 07/01/2018 By my electronic signature, I attest that I have personally reviewed the images for this examination and formulated the interpretations and opinions expressed in this report Finalized by Andrei Gunn M.D. on 07/02/2018 1:11 AM. Dictated by Boubacar Garcia M.D. on 07/01/2018 10:39 PM. Narrative Performed At Ultrasound Doppler of bilateral lower extremities: [facility] RESULTS Clinical Indication: EDEMA Technique: Multiple real-time grayscale sonographic images were obtained throughout the bilateral lower extremities with additional color Doppler and duplex acquisitions to examine the deep venous systems. Findings: Right: There is apparent duplication of the right popliteal veins with subacute appearing occlusive thrombus in the vein labeled #2, which appears new since the recent outside exam. The common femoral, femoral, upper deep femoral, and upper greater saphenous veins of the right lower extremity are widely patent, compressible, and demonstrate normal color Doppler imaging. There is a small Fair's cyst within the right popliteal fossa measuring up to 5.7 x 2.1 x 3.9 cm, previously measuring 4.6 x 2.3 x 4.0 cm. There is moderate subcutaneous edema throughout the right lower extremity, mainly at the calf. Left: The common femoral, femoral, upper deep femoral, upper saphenous, and popliteal veins of the lower extremities are widely patent, compressible, and demonstrate normal color Doppler imaging. There is no evidence of mass or fluid collection within the lower extremities. There is moderate subcutaneous edema throughout the left lower extremity, greatest at the calf. Mildly prominent, reactive appearing lymph nodes are seen within the bilateral inguinal regions with a dominant right inguinal lymph node measuring 2.2 x 1.0 x 1.7 cm and a dominant left inguinal lymph node measuring 2.2 x 0.6 x 1.5 cm. Procedure Note Interface, Radiant Results - 07/02/2018 1:14 AM CDT Ultrasound Doppler of bilateral lower extremities: Clinical Indication: EDEMA Technique: Multiple real-time grayscale sonographic images were obtained throughout the bilateral lower extremities with additional color Doppler and duplex acquisitions to examine the deep venous systems. Findings: Right: There is apparent duplication of the right popliteal veins with subacute appearing occlusive thrombus in the vein labeled #2, which appears new since the recent outside exam. The common femoral, femoral, upper deep femoral, and upper greater saphenous veins of the right lower extremity are widely patent, compressible, and demonstrate normal color Doppler imaging. There is a small Fair's cyst within the right popliteal fossa measuring up to 5.7 x 2.1 x 3.9 cm, previously measuring 4.6 x 2.3 x 4.0 cm. There is moderate subcutaneous edema throughout the right lower extremity, mainly at the calf. Left: The common femoral, femoral, upper deep femoral, upper saphenous, and popliteal veins of the lower extremities are widely patent, compressible, and demonstrate normal color Doppler imaging. There is no evidence of mass or fluid collection within the lower extremities. There is moderate subcutaneous edema throughout the left lower extremity, greatest at the calf. Mildly prominent, reactive appearing lymph nodes are seen within the bilateral inguinal regions with a dominant right inguinal lymph node measuring 2.2 x 1.0 x 1.7 cm and a dominant left inguinal lymph node measuring 2.2 x 0.6 x 1.5 cm. IMPRESSION 1. Occlusive, subacute appearing thrombus within one of the duplicated right popliteal veins. 2. No evidence of femoral/popliteal DVT in the left lower extremity. 3. Small right Afir's cyst redemonstrated. 4. Moderate bilateral subcutaneous edema, mainly at the calves. 5. Mildly prominent, reactive appearing bilateral inguinal lymph nodes. Preliminary findings were discussed with Magan Garcia MD at 10:44 PM on 2017 By my electronic signature, I attest that I have personally reviewed the images for this examination and formulated the interpretations and opinions expressed in this report Finalized by Andrei Gunn M.D. on 07/02/2018 1:11 AM. Dictated by Boubacar Garcia M.D. on 07/01/2018 10:39 PM. Performing Organization Address City/State/Zipcode Phone Number [facility] RES[facility] * CT ABD/PELV WO CONTRAST (07/01/2018 4:16 PM) Impressions Performed At 1.Placement of left percutaneous nephrostomy catheter since June 19, 2018 [facility] with large left subcapsular hemorrhage compressing the left kidney. 2.Bilateral nephroureteral stents remain in place with persistent moderate right hydronephrosis. 3.Symmetric presacral and perirectal soft tissue thickening which may be from edema or fibrosis. Finalized by Jean Paul Culver M.D. on 07/01/2018 4:23 PM. Dictated by Jean Paul Culver M.D. on 07/01/2018 4:18 PM. Narrative Performed At CT abdomen and pelvis [facility] RESULTS INDICATION: 67-year-old lady with flank pain TECHNIQUE: CT scans obtained to the abdomen and pelvis without IV or oral contrast material. There are limited outside scans of the abdomen on June 19, 2018, and there is a previous outside noncontrast CT of June 03, 2018. FINDINGS: Heart size normal.Lung bases clear. Unopacified liver and spleen unremarkable. Adrenals unremarkable.Right nephroureteral stent is in place with persistent moderate right hydronephrosis.A left nephroureteral stent remains in place , and there is placement of a left percutaneous nephrostomy catheter.There is development of moderate left subcapsular hemorrhage which results in compression of the left kidney.Minimal gas is noted within the left collecting system. Unopacified pancreas unremarkable. Bladder collapsed with bilateral nephroureteral stents in place.No pelvic adenopathy. Bowel loops normal caliber.No ascites.Mild body wall edema greater on the left.There is circumferential symmetric presacral and perirectal soft tissue stranding which may be from edema or fibrosis. Moderate lower lumbar spondylosis.No aggressive osseous lesions. Procedure Note Interface, Radiant Results - 07/01/2018 4:[address] abdomen and pelvis INDICATION: 67-year-old lady with flank pain TECHNIQUE: CT scans obtained to the abdomen and pelvis without IV or oral contrast material. There are limited outside scans of the abdomen on June 19, 2018, and there is a previous outside noncontrast CT of June 03, 2018. FINDINGS: Heart size normal. Lung bases clear. Unopacified liver and spleen unremarkable. Adrenals unremarkable. Right nephroureteral stent is in place with persistent moderate right hydronephrosis. A left nephroureteral stent remains in place, and there is placement of a left percutaneous nephrostomy catheter. There is development of moderate left subcapsular hemorrhage which results in compression of the left kidney. Minimal gas is noted within the left collecting system. Unopacified pancreas unremarkable. Bladder collapsed with bilateral nephroureteral stents in place. No pelvic adenopathy. Bowel loops normal caliber. No ascites. Mild body wall edema greater on the left. There is circumferential symmetric presacral and perirectal soft tissue stranding which may be from edema or fibrosis. Moderate lower lumbar spondylosis. No aggressive osseous lesions. IMPRESSION 1. Placement of left percutaneous nephrostomy catheter since June 19, 2018 with large left subcapsular hemorrhage compressing the left kidney. 2. Bilateral nephroureteral stents remain in place with persistent moderate right hydronephrosis. 3. Symmetric presacral and perirectal soft tissue thickening which may be from edema or fibrosis. Finalized by Jean Paul Culver M.D. on 07/01/2018 4:23 PM. Dictated by Jean Paul Culver M.D. on 07/01/2018 4:18 PM. Performing Organization Address City/State/Zipcode Phone Number [facility] RES[facility] * ECG-SCAN (07/01/2018 2:40 PM) Narrative Performed At Ordered by an unspecified provider. * BNP POC ER (07/01/2018 2:31 PM) BNP POC 123.0 (H) 0 - 100 PG/ML [facility] Performing Organization Address [facility] Phone Number [facility] [address] [place] [address] * POC TROPONIN (07/01/2018 2:31 PM) [id number] 0.00 0.00 - 0.05 NG/ML [facility] Performing Organization Address [facility] Phone Number MA[facility] LAB [address] [place] [address] * UA REFLEX CULTURE LABEL (07/01/2018 2:30 PM) UA Reflex Culture LAB LABEL [facility] Specimen Urine Performing Organization Address [facility] Phone Number MA[facility] LAB [address] [place] [address] * URINALYSIS MICROSCOPIC REFLEX TO CULTURE (07/01/2018 2:30 PM) WBCs,UA 10-20 0 - 2 /HPF [facility] RBCs,UA PACKED 0 - 3 /HPF [facility] Comment,UA Urine submitted for reflex [facility] culture if criteria are met:WBC>10, positive nitrite and/or >=1+ leukocyte esterase. If quantity is not sufficient, an addendum will follow. MucousUA TRACE [facility] Bacteria,UA MODERATE (A) NEG-NEG [facility] Squamous Epithelial Cells 0-2 0 - 5 [facility] Specimen Urine Performing Organization Address [facility] Phone Number [facility] [address] [place] [address] * URINALYSIS DIPSTICK REFLEX TO CULTURE (07/01/2018 2:30 PM) Color,UA YELLOW [facility] Turbidity,UA CLEAR CLEAR-CLEAR [facility] Specific [place]-Urine 1.010 1.003 - 1.035 [facility] pH,UA 6.0 5.0 - 8.0 [facility] Protein,UA 1+ (A) NEG-NEG [facility] Glucose,UA NEG NEG-NEG [facility] Ketones,UA NEG NEG-NEG [facility] Bilirubin,UA NEG NEG-NEG [facility] Blood,UA 3+ (A) NEG-NEG [facility] Urobilinogen,UA NORMAL NORM-NORMAL [facility] Nitrite,UA NEG NEG-NEG [facility] Leukocytes,UA 2+ (A) NEG-NEG [facility] Urine Ascorbic Acid, UA NEG NEG-NEG [facility] Specimen Urine Performing Organization Address City/[facility]/Zipcode Phone Number [facility] [address] [place] [address] * CULTURE-URINE W/SENSITIVITY (07/01/2018 2:30 PM) Battery Name URINE CULTURE [facility] Specimen Description URINE [facility] Special Requests NONE [facility] Culture NO GROWTH [facility] Report Status FINAL [facility] 07/02/2018 Specimen Urine Performing Organization Address City/[facility]/Zipcode Phone Number MAIN LAB [address] [place] [address] * MRI PELVIS EXTERNAL IMAGING (06/25/2018) Narrative Performed At This order has been auto finalized and does not contain a result. * US ABDOMEN EXTERNAL IMAGING (06/24/2018) Only the most recent of 3 results within the time period is included. Narrative Performed At This order has been auto finalized and does not contain a result. * US VENOUS DOPPLER EXTERNAL IMAGING (06/22/2018) Narrative Performed At This order has been auto finalized and does not contain a result. * IR MISC EXTERNAL IMAGING (06/19/2018 12:15 AM) Only the most recent of 3 results within the time period is included. Narrative Performed At This order has been auto finalized and does not contain a result. * CT ABD/PEL EXTERNAL IMAGING (06/19/2018) Only the most recent of 2 results within the time period is included. Narrative Performed At This order has been auto finalized and does not contain a result. * NM MISC EXTERNAL IMAGING (06/17/2018) Narrative Performed At This order has been auto finalized and does not contain a result. from Last 3 Months
--- OUTSIDE RECORDS SUMMARY | 2018-08-13 12:11 | XMS REPORT | Encounter Summary ---
Author Author [facility] Organization [facility] Address Unknown Phone Unavailable Care Team Providers Care Finishing Inspector Name Role Phone Jeny Garcia MD PCP Encounter Details Date Type Department Care Team Description 07/30/2018 Prep for Case [facility] Perry Moseley MD Bilateral ureteral [facility] Center - IC Exam [address] obstruction (Primary Dx) [address] [place] [address] [place], [place] [id number] Social History Tobacco Use Types Packs/Day Years Used Date Former Smoker Quit: 06/03/2018 Smokeless Tobacco: Never Used Alcohol Use Drinks/Week oz/Week Comments No Sex Assigned at Date Recorded Not on file as of this encounter Functional Status Functional Status Response Date of Assessment Does the patient have a hearing impairment: No 07/30/2018 Does the patient have a visual impairment: Yes 07/30/2018 Does the patient have impaired ambulation: No 07/30/2018 Does the patient have an activity of daily living No 07/30/2018 (ADL) impairment: Does the patient have an instrumental activity of No 07/30/2018 daily living (IADL) impairment: Cognitive Status Response Date of Assessment Does the patient have a cognitive impairment: No 07/30/2018 as of this encounter Plan of Treatment Date Type Specialty Care Team Description 08/23/2018 Surgery Perry Moseley MD CYSTOURETHROSCOPY WITH [address] URETERAL CATHETERIZATION [address] WITH/ WITHOUT IRRIGATION/ [place] [address] INSTILLATION/ [phone] URETEROPYELOGRAPHY 08/23/2018 Procedure Pass 08/23/2018 [facility] Perry Moseley MD Bilateral ureteral Encounter [address] obstruction [address] [place], [place] [id number] as of this encounter Visit Diagnoses Diagnosis Bilateral ureteral obstruction - Primary
--- OUTSIDE RECORDS SUMMARY | 2018-08-13 12:11 | XMS REPORT | Encounter Summary ---
Author Author [facility] Organization [facility] Address Unknown Phone Unavailable Care Team Providers Care Ballast Inspector Name Role Phone Jeny Garcia MD PCP Reason for Visit * Reason Comments Heme/Onc Care Encounter Details Date Type Department Care Team Description 07/30/2018 Office Visit [facility] Perry Moseley MD Bilateral ureteral [facility] Center - IC Exam [address] obstruction [address] [place] [address] [place] [address] [phone] Social History Tobacco Use Types Packs/Day Years Used Date Former Smoker Quit: 06/03/2018 Smokeless Tobacco: Never Used Alcohol Use Drinks/Week oz/Week Comments No Sex Assigned at Date Recorded Not on file as of this encounter Last Filed Vital Signs Vital Sign Reading [...] Mass Index 28.43 07/30/2018 12:54 PM CDT in this encounter Functional Status Functional Status Response [...] impairment: No 07/30/2018 as of this encounter Instructions * Patient Instructions - Izzy Jimenez, RN - 07/30/2018 1:00 PM CDT [facility] - Ic Exam Pre-Operative Instructions Surgical Procedure: Cystoscopy, bilateral retrograde pyelograms Date of Surgery: 08/23/18 Arrival Time at the Admission Office (Main Lobby): Will call To ensure that your surgery can proceed without delay, you will be contacted by a phone triage nurse from the Preoperative Assessment Clinic (PAC) to complete this process. Please review the information given to you by your surgeon. You will be called by the surgery staff with your day of surgery arrival time between 2:30 - 4:30 PM the day prior to surgery. If you have not heard from them after 4:30 PM, please call to confirm your arrival time. Pre-Operative Assessment and Instructions: Once you speak to the nurse or are seen in the Pre-Operative Assessment Clinic, you will be given medication instructions. However, if surgery is within 2 weeks , please read and follow the medication instructions below to prepare for surgery before you speak with the phone triage nurse: 14 days prior to surgery: ? Contact your doctor who prescribes any of the following to develop a plan for surgery: o Blood thinners such as aspirin, Aggrenox, Brilinta, Effient, Eliquis, enoxaparin (Lovenox), clopidogrel (Plavix), cilostazol, pentoxifylline (Trental) , Pradaxa, Savaysa, ticlopidine, Xarelto, and warfarin (Coumadin) o Immunosuppresants such as methotrexate, azathioprine, sulfasalazine, everolimus, sirolimus, Humira, Remicade, Enbrel, Simponi, Orencia, Cimzia, Actemra, and Xeljanz o Chemotherapy ? Stop most vitamins, herbals, and supplements including (but not limited to): o Alpha lipoic acid, black cohosh, CoQ10, echinacea, eye vitamins, fish oil, flaxseed oil, garlic, gingko biloba, ginseng, glucosamine/chondroitin, kava, Lovaza, lutein, lysine, multivitamin, red yeast rice, ERIC-e, saw palmetto, [place] wort, turmeric, valerian root, Vascepa, Vitamin A, Vitamin B complex, Vitamin C, Vitamin E ? You DO NOT need to stop: iron, magnesium, potassium 7 days prior to surgery: ? Stop anti-inflammatory medications such as ibuprofen (Advil, Motrin), naproxen (Aleve), Ester-Bloxom, Excedrin, Midol, celecoxib (Celebrex), diclofenac (Voltaren), diflunisal, etodolac, flurbiprofen, indomethacin, ketoprofen, ketorolac, meloxicam, nabumetone, and piroxicam Do not drink alcohol within 24 hours of surgery. Please do not eat or drink anything after midnight. No gum, mints, hard candy, snacks, coffee, etc or chewing tobacco allowed after midnight before surgery. You may brush your teeth but be sure to rinse and spit. Please shower with an over the counter antibacterial soap the evening before or the morning of surgery. If your surgery is scheduled as an outpatient, you must arrange to have someone drive you home and have someone with you 24 hours after anesthesia. If you have any questions, please contact your provider's office at . For emergencies during evenings, nights, weekends, and holidays, contact [facility] upset welding machine operator and request they contact the on-call Urology Resident at [phone]. in this encounter Progress Notes * Perry Moseley MD - 07/30/2018 1:00 PM CDT Formatting of this note may be different from the original. Name: Aracelis Espinal : 1950 AGE: 67 y.o. DATE OF SERVICE: 07/30/2018 Subjective: Reason for Visit: Heme/Onc Care Aracelis Espinal is a 67 y.o. female. Cancer Staging No matching staging information was found for the patient. History of Present Illness 67-year-old female presents for follow-up of bilateral ureteral obstruction. Patient was admitted after her clinic visit and underwent right nephrostomy tube placement. She subsequently underwent ureteral stent removal bilaterally via cystoscopy and remains with her nephrostomy tubes in place. Her creatinine improved and is now down to approximately 1.3-1.4. She reports that her swelling has improved and she continues on the Lasix. She still has mild edema. She is making a small amount of urine per urethra but the majority of her urine is out of her nephrostomy tubes. She currently complains of pain, located at the nephrostomy tubes, rated as mild, sharp in intensity, associated with nephrostomy tubes. No modifying factors. Past Medical History: Diagnosis Date Anemia Anxiety disorder Cataract Colon polyps Depression Dyslipidemia Thyroid disorder Ulcer of the stomach and intestine Past Surgical History: Procedure Laterality Date HX HYSTERECTOMY 2002 HX CATARACT REMOVAL Bilateral 01/2018 BACK SURGERY 1979; 1998 BUNIONECTOMY HX APPENDECTOMY HX CHOLECYSTECTOMY Family History Problem Relation Age of Onset Cancer Mother Cancer Sister Social History Social History Marital status: Single Spouse name: N/A Number of children: N/A Years of education: N/A Social History Main Topics Smoking status: Former Smoker Quit date: 06/03/2018 Smokeless tobacco: Never Used Alcohol use No Drug use: No Sexual activity: No Other Topics Concern Not on file Social History Narrative No narrative on file Review of Systems Constitutional: Positive for activity change. HENT: Negative. Eyes: Negative. Respiratory: Negative. Cardiovascular: Negative. Gastrointestinal: Negative. Endocrine: Negative. Genitourinary: Positive for hematuria. Musculoskeletal: Negative. Skin: Negative. Allergic/Immunologic: Negative. Neurological: Positive for weakness. Hematological: Negative. Psychiatric/Behavioral: Negative. All other systems reviewed and are negative. Objective: acetaminophen (TYLENOL) 325 mg tablet Take 1 tablet by mouth every 6 hours as needed (headache). apixaban (ELIQUIS) 5 mg tablet Take one tablet by mouth twice daily. calcium carbonate (TUMS) 500 mg (200 mg elemental calcium) chewable tablet Chew 1 tablet by mouth twice daily. carboxymethylcellulose (REFRESH PLUS) 0.5 % dpet Apply 1 drop to both eyes as Needed. clonazePAM (KLONOPIN) 1 mg tablet Take 1 tablet by mouth daily as needed for panic attacks docusate (COLACE) 100 mg capsule Take 100 mg by mouth twice daily. ergocalciferol (VITAMIN D-2) 50,000 unit capsule Take 1 capsule by mouth every . furosemide (LASIX) 40 mg tablet Take one tablet by mouth every morning. HYDROcodone/acetaminophen(+) (NORCO) 10/325 mg tablet Take 1 tablet by mouth every 6 hours as needed levothyroxine (SYNTHROID) 50 mcg tablet Take 50 mcg by mouth daily 30 minutes before breakfast. nicotine (NICODERM CQ STEP 1) 21 mg/day patch Apply 1 patch to top of skin as directed every [address] (PROTONIX) 40 mg tablet Take 40 mg by mouth daily. Vitals: 07/30/18 1254 BP: 124/73 Pulse: 94 Resp: 18 Temp: 36.7 C (98 F) TempSrc: Oral SpO2: 100% Weight: 75.1 kg (165 lb 9.6 oz) Height: 162.6 cm (64") Body mass index is 28.43 kg/m. Pain Score: Zero Physical Exam Constitutional: She is oriented to person, place, and time. She appears well- developed and well-nourished. No distress. HENT: Head: Normocephalic and atraumatic. Eyes: Conjunctivae are normal. Right eye exhibits no discharge. Left eye exhibits no discharge. No scleral icterus. Neck: No tracheal deviation present. Cardiovascular: Normal rate. Pulmonary/Chest: Effort normal. No stridor. No respiratory distress. Abdominal: She exhibits no distension. Musculoskeletal: Normal range of motion. She exhibits edema. She exhibits no tenderness. Neurological: She is alert and oriented to person, place, and time. Skin: Skin is warm and dry. No rash noted. She is not diaphoretic. No erythema. No pallor. Psychiatric: She has a normal mood and affect. Her behavior is normal. Judgment and thought content normal. Basic Metabolic Profile Lab Results Component Value Date/Time NA 136 (L) 07/08/2018 05:46 AM K 3.6 07/08/2018 05:46 AM CA 9.5 07/08/2018 05:46 AM CL 100 07/08/2018 05:46 AM CO2 26 07/08/2018 05:46 AM GAP 10 07/08/2018 05:46 AM Lab Results Component Value Date/Time BUN 35 (H) 07/08/2018 05:46 AM CR 1.44 (H) 07/08/2018 05:46 AM GLU 109 (H) 07/08/2018 05:46 AM Personally reviewed images of recent CT scan: Mild fibrosis low in the pelvis and perirectal inflammation/fibrosis which may represent a retroperitoneal fibrosis picture Assessment and Plan: 67-year-old female with bilateral ureteral obstruction and indwelling nephrostomy tubes I had a lengthy discussion with the pt, and her daughter who presented with her today. I discussed the treatment options, as well as the risks, benefits, and alternatives of each treatment option. Previous MRI and CT scan there was no evidence of retroperitoneal fibrosis, retroperitoneal mass, or any other cause identified for the obstruction. On her most recent CT scan there was mild fibrosis low in the pelvis posterior to the bladder and in the perirectal location. This does not have the typical picture of retroperitoneal fibrosis but certainly may be related to the cause of her bilateral ureteral obstruction. She has no history of radiation and no history of kidney stones and therefore because of her ureteral obstruction is relatively uncertain. Her ureteral stents have been removed and she remained nephrostomy tube. I have previously discussed with the patient and her sister that we would like to proceed with endoscopic evaluation of her ureters to determine the location and length of the strictures. This will help us determine the cause and if we see medial deviation or long segment distal ureteral stricture he may be more inclined to consider retroperitoneal fibrosis. based on the length and location we can also further discuss possible reconstructive options. We will therefore proceed with cystoscopy with bilateral retrograde pyelograms and antegrade nephrostograms to evaluate the length and location of the stricture. The risks, benefits, and alternatives of the surgery were discussed and informed consent was obtained. We will proceed in the near future. Both she and her sister understand that this is only to gather further information regarding the length and location of stricture and no reconstructive option will be performed at this time. Once we determine the length and location we can hopefully have a better understanding of potentially the cause and any further possible reconstructive options. in this encounter Plan of Treatment Date Type Specialty Care Team Description 08/23/2018 Surgery Perry Moseley MD CYSTOURETHROSCOPY WITH [address] URETERAL CATHETERIZATION [address] WITH/ WITHOUT IRRIGATION/ [place] [address] INSTILLATION/ [phone] URETEROPYELOGRAPHY 08/23/2018 Procedure Pass 08/23/2018 Hospital Perry Moseley MD Bilateral ureteral Encounter [address] obstruction [address] [place] [address] [phone] as of this encounter Visit Diagnoses Diagnosis Bilateral ureteral obstruction
--- OUTSIDE RECORDS SUMMARY | 2018-08-13 12:13 | XMS REPORT | Encounter Summary ---
Author Author [facility] Organization [facility] Address Unknown Phone Unavailable Care Team Providers Care Finger Lift Operator Name Role Phone Jeny Garcia MD PCP Encounter Details Date Type Department Care Team Description 07/01/2018 [facility] [address] [place] [address] Social History Tobacco Use Types Packs/Day Years Used Date Former Smoker Quit: 06/03/2018 Smokeless Tobacco: Never Used Alcohol Use Drinks/Week oz/Week Comments No Sex Assigned at Date Recorded Not on file as of this encounter Functional Status Functional Status Response Date of Assessment Does the patient have a hearing impairment: No 07/01/2018 as of this encounter Plan of Treatment Date Type Specialty Care Team Description 08/23/2018 Surgery Perry Moseley MD CYSTOURETHROSCOPY WITH [address] URETERAL CATHETERIZATION [address] WITH/ WITHOUT IRRIGATION/ [place] [address] INSTILLATION/ [phone] URETEROPYELOGRAPHY 08/23/2018 Procedure Pass 08/23/2018 Hospital Perry Moseley MD Bilateral ureteral Encounter [address] [place] [address] [phone] as of this encounter Visit Diagnoses Not on filein this encounter
--- OUTSIDE RECORDS SUMMARY | 2018-08-13 12:13 | XMS REPORT | Encounter Summary ---
Author Author [facility] Address Unknown Phone Unavailable Care Team Providers Care Hair Stylist Name Role Phone Jeny Garcia MD PCP Reason for Visit * Reason Comments Hydronephrosis * Consult, Test & Treat (Routine) Status Reason Specialty Diagnoses / Referred By Referred To Procedures Contact Contact No Auth Needed Urology Diagnoses Perry Moseley MD New - [address] Obstructive [place] [address] Neuropathy/Urina [place], [place] [address] Recs from Phone: [place] [phone] P rocedures NEW PATIENT Encounter Details Date Type Department Care Team Description 07/01/2018 Office Visit [facility] Perry Moseley MD Hydronephrosis, Physicians - Urology [address] unspecified Ortho and Medical [place] [address] hydronephrosis type [address] [place] [address] [phone] [place] [address] Social History Tobacco Use Types Packs/Day Years Used Date Former Smoker Quit: 06/03/2018 Smokeless Tobacco: Never Used Alcohol Use Drinks/Week oz/Week Comments No Sex Assigned at Date Recorded Not on file as of this encounter Last Filed Vital Signs Vital Sign Reading Time Taken Blood Pressure - - Pulse - - Temperature - - Respiratory Rate - - Oxygen Saturation - - Inhaled Oxygen - - Concentration Weight 85.3 kg (188 lb) 07/01/2018 10:41 AM CDT Height 165.1 cm (5' 5") 07/01/2018 10:41 AM CDT Body Mass Index 31.28 07/01/2018 10:41 AM CDT in this encounter Functional Status Functional Status Response Date of Assessment Does the patient have a hearing impairment: No 07/01/2018 as of this encounter Progress Notes * Perry Moseley MD - 07/01/2018 11:00 AM CDT Formatting of this note may be different from the original. Date of Service: 07/01/2018 Subjective: Aracelis Espinal is a 67 y.o. female with bilateral hydronephrosis. History of Present Illness 67yo F referred for bilateral hydronephrosis. Presented to [facility] with Cr 9.3 complaining of fatigue, nausea/vomiting, and decreased urine output. She was found to have bilateral hydronephrosis and underwent bilateral ureteral stent placement. She did require hemodialysis. During her hospital stay her renal function again worsened, so she eventually had a left nephrostomy tube placed 06/19/18 (a nuclear medicine renal scan demonstrated 20% function on the right, so no NT was placed on that side). She denies any lower urinary tract symptoms prior to admission. She has no history of nephrolithiasis, UTIs, or urologic intervention. Her stay was complicated by anemia and thrombocytopenia, and she did require platelet and pRBC transfusion. She had severe peripheral edema, partially improved with lasix. She was eventually discharged home once her creat decreased to 1.8. She still has edema from the waist down. At present all her urine output is from her left nephrostomy tube, except for a small dribble of urine when she attempts to void. Since she was discharged she has had progressive worsening of her edema. She also has dyspnea on exertion and orthopnea and is sleeping in her recliner at night. She c/o pain, rated as mild , located in her legs, achy in quality, associated with her edema. No other modifying factors. She also underwent colonoscopy while in the hospital due to concerns of compression from a colon mass. There were several small benign polyps which were removed. Her hysterectomy was done for menorrhagia. Review of Systems Constitutional: Negative for activity change, appetite change, chills, diaphoresis, fatigue, fever and unexpected weight change. HENT: Negative for congestion, hearing loss, mouth sores and sinus pressure. Eyes: Negative for visual disturbance. Respiratory: Negative for apnea, cough, chest tightness and shortness of breath. Cardiovascular: Negative for chest pain, palpitations and leg swelling. Gastrointestinal: Negative for abdominal distention, abdominal pain, anal bleeding, blood in stool, constipation, diarrhea, nausea, rectal pain and vomiting. Genitourinary: Negative for decreased urine volume, difficulty urinating, dyspareunia, dysuria, enuresis, flank pain, frequency, genital sores, hematuria , menstrual problem, pelvic pain, urgency, vaginal bleeding, vaginal discharge and vaginal pain. Musculoskeletal: Negative for arthralgias, back pain, gait problem and myalgias. Skin: Negative for rash and wound. Neurological: Negative for dizziness, tremors, seizures, syncope, weakness, light-headedness, numbness and headaches. Hematological: Negative for adenopathy. Does not bruise/bleed easily. Psychiatric/Behavioral: Negative for decreased concentration and dysphoric mood. The patient is not nervous/anxious. Past Medical History: Diagnosis Date Anemia Anxiety disorder Cataract Colon polyps Depression Dyslipidemia Thyroid disorder Ulcer of the stomach and intestine Past Surgical History: Procedure Laterality Date HX HYSTERECTOMY 2001 HX CATARACT REMOVAL Bilateral 01/2018 BACK SURGERY 1979; 1998 BUNIONECTOMY HX APPENDECTOMY HX CHOLECYSTECTOMY Family History Problem Relation Age of Onset Cancer Mother Cancer Sister Current Outpatient Prescriptions Medication Sig Dispense Refill acetaminophen (TYLENOL PO) Take by mouth. calcium carbonate (TUMS PO) Take by mouth. cephalexin (KEFLEX) 500 mg capsule Take 500 mg by mouth four times daily. clonazePAM (KLONOPIN) 1 mg tablet Bedtime as needed for Sleep docusate (COLACE) 100 mg capsule Take 100 mg by mouth twice daily. furosemide (LASIX) 40 mg tablet Take 40 mg by mouth every morning. HYDROcodone/acetaminophen(+) (NORCO) 10/325 mg tablet levothyroxine (SYNTHROID) 50 mcg tablet nicotine (NICODERM CQ STEP 1) 21 mg/day patch Apply 1 patch to top of skin as directed every [address] (PROTONIX) 40 mg tablet No current facility-administered medications for this visit. Allergies Allergen Reactions Codeine VOMITING Social History Social History Marital status: Single Spouse name: N/A Number of children: N/A Years of education: N/A Occupational History Not on file. Social History Main Topics Smoking status: Former Smoker Quit date: 06/03/2018 Smokeless tobacco: Never Used Alcohol use No Drug use: No Sexual activity: No Other Topics Concern Not on file Social History Narrative No narrative on file Objective: Vitals: 07/01/18 1041 Weight: 85.3 kg (188 lb) Height: 165.1 cm (65") Body mass index is 31.28 kg/m. Physical Exam Constitutional: She is oriented to person, place, and time. She appears well- developed and well-nourished. No distress. HENT: Head: Normocephalic and atraumatic. Eyes: Conjunctivae and EOM are normal. No scleral icterus. Neck: Normal range of motion. No JVD present. No tracheal deviation present. Cardiovascular: Normal rate and regular rhythm. Pulmonary/Chest: Effort normal and breath sounds normal. No stridor. No respiratory distress. She has no wheezes. Abdominal: Soft. She exhibits no distension. There is no tenderness. There is no rebound and no guarding. Obese Genitourinary: Genitourinary Comments: Left nephrostomy tube in place with mild sanguinous staining on dressing and clear, yellow urine in bag Musculoskeletal: She exhibits edema. She exhibits no deformity. Neurological: She is alert and oriented to person, place, and time. Skin: Skin is warm and dry. No rash noted. She is not diaphoretic. No erythema. Psychiatric: She has a normal mood and affect. Her behavior is normal. Judgment and thought content normal. Reviewed notes from referring physician: summarized in HPI Personally reviewed images of outside CT scan and MRI: no evidence of RP mass or lymphadenopathy, bilateral hydronephrosis without obvious source, significantly thickened bladder Reviewed outside labs: creat on admission 9.3, on d/c 1.9 Assessment and Plan: Problem Hydronephrosis Bilateral hydronephrosis found upon presentation 06/03/18 with Cr >9 Bilateral ureteral stent placement Subsequent left nephrostomy tube placement Distal ureteral narrowing without obstructing lesion or definitive external compression Abnormal and asymmetric thickening of bladder Hydronephrosis Reviewed summary of findings. Discussed that the [...] this will require placing a right nephrostomy tube. Once stents have been removed, will plan to proceed with antegrade and retrograde pyelograms for delineation of anatomy. Will reevaluate bladder anatomy with cystoscopy at that time. Also will schedule patient for urodynamics studies, given markedly thickened bladder, to rule out bladder pathology as etiology for upper tract deterioration. Due to patient's dyspnea with exertion, severe fatigue, persistent edema, and malaise, she was sent to the Emergency Department from clinic today for further medical evaluation and management. Recommend if admitted that a right nephrostomy tube be placed while inpatient. Fany Andrea MD PGY-5 Urology Attestation I saw and evaluated pt with the resident in clinic and performed the diamond portions of the e/m. I agree with the above assessment and plan. I had a lengthy discussion with the pt, and her sister who presented with her today. I discussed the treatment options, as well as the risks, benefits, and alternatives of each treatment option. Patient has apparent bilateral mid to distal ureteral obstruction without obvious causes. She has no history of radiation of the pelvis, previous stones, previous ureteral surgeries. Her only pelvic surgery was a hysterectomy almost 15 years ago for menorrhagia. I personally reviewed her CT scan and her MRI images and there is no evidence of lymphadenopathy or retroperitoneal fibrosis/masses. She does have a significant smoking history and certainly bilateral obstructing tumors is a possibility but seems unlikely. Her bladder on MRI and CT scan is significantly thickened and somewhat asymmetric. Certainly with her smoking history this could be related to neoplasm but she did undergo cystoscopy with bilateral ureteral stent placement at the outside institution without any obvious masses identified. She also does not endorse any history of gross hematuria. Even if her bladder thickening did represent a bladder malignancy, which I do not think is likely, her hydroureter does not extend down to the bladder and therefore I do not think her hydronephrosis is related to bladder pathology. It is difficult for me to discuss the treatment options as I do not have a definitive answer for the cause. I discussed that I have concerns over the validity of her MAG3 renal scan as her creatinine was above 4 at the time of the study. Therefore it is unreliable in her split function may be truly different. I would recommend that she have a right nephrostomy tube placed at this time as I do not feel the split function is reliable given the fact that it was obtained from a nuc med renal scan with an elevated creatinine. When she has bilateral nephrostomy tubes in place, we can remove her ureteral stents to give her period of urethral rest. We can then perform antegrade and retrograde nephrostograms after a period of 6 weeks without ureteral stents in place. We can assess her location and length of the bilateral strictures to help attempt to identify a cause and certainly for surgical planning. However the short-term the patient has massive bilateral lower extremity edema. She also endorses dyspnea on exertion as well as orthopnea and sleeps in a recliner. Given all of this and the fact that it is worsening, I recommended that she be evaluated in the emergency room. We will ask her to the emergency room and will be happy to follow her as an inpatient if she does get admitted to carry out the above plan. in this encounter Miscellaneous Notes * Assessment & Plan Note - Fany Andrea MD - 07/01/2018 11:39 AM CDT Associated Problem(s): Hydronephrosis Reviewed summary of findings. Discussed that the [...] patient for urodynamics studies, given markedly thickened bladder , to rule out bladder pathology as etiology for upper tract deterioration. in this encounter Plan of Treatment Date Type Specialty Care Team Description 08/23/2018 Surgery Perry Moseley MD CYSTOURETHROSCOPY WITH [address] URETERAL CATHETERIZATION [address] WITH/ WITHOUT IRRIGATION/ [place] [address] INSTILLATION/ [phone] URETEROPYELOGRAPHY 08/23/2018 Procedure Pass 08/23/2018 Hospital Perry Moseley MD Bilateral ureteral Encounter [address] obstruction [place] [address] [place] [address] [phone] as of this encounter Visit Diagnoses Diagnosis Hydronephrosis, unspecified hydronephrosis type
--- OUTSIDE RECORDS SUMMARY | 2018-08-13 12:13 | XMS REPORT | Encounter Summary ---
Author Author [facility] Organization [facility] Address Unknown Phone Unavailable Care Team Providers Care Bulk Clerk Name Role Phone No Pcp, Na PCP Unavailable Jeny Garcia MD PCP Encounter Details Date Type Department Care Team Description 06/27/2018 Ancillary Rad Outpatient, Radiologist Diagnosis unknown Orders [address] [place], [place] [id number] Social History Tobacco Use Types Packs/Day Years Used Date Never Assessed Sex Assigned at Date Recorded Not on file as of this encounter Plan of Treatment Date Type Specialty Care Team Description 08/23/2018 Surgery Perry Moseley MD CYSTOURETHROSCOPY WITH [address] URETERAL CATHETERIZATION [address] WITH/ WITHOUT IRRIGATION/ [place] [address] INSTILLATION/ [phone] URETEROPYELOGRAPHY 08/23/2018 Procedure Pass 08/23/2018 Hospital Perry Moseley MD Bilateral ureteral Encounter [address] obstruction [address] [place], [place] [id number] as of this encounter Results * MRI PELVIS EXTERNAL IMAGING (06/25/2018) Narrative Performed At This order has been auto finalized and does not contain a result. * US ABDOMEN EXTERNAL IMAGING (06/24/2018) Narrative Performed At This order has been auto finalized and does not contain a result. * US VENOUS DOPPLER EXTERNAL IMAGING (06/22/2018) Narrative Performed At This order has been auto finalized and does not contain a result. * IR MISC EXTERNAL IMAGING (06/19/2018 12:15 AM) Narrative Performed At This order has been auto finalized and does not contain a result. * CT ABD/PEL EXTERNAL IMAGING (06/19/2018) Narrative Performed At This order has been auto finalized and does not contain a result. * NM MISC EXTERNAL IMAGING (06/17/2018) Narrative Performed At This order has been auto finalized and does not contain a result. * US ABDOMEN EXTERNAL IMAGING (06/15/2018) Narrative Performed At This order has been auto finalized and does not contain a result. * US ABDOMEN EXTERNAL IMAGING (06/10/2018) Narrative Performed At This order has been auto finalized and does not contain a result. * IR MISC EXTERNAL IMAGING (06/05/2018) Narrative Performed At This order has been auto finalized and does not contain a result. * IR MISC EXTERNAL IMAGING (06/04/2018) Narrative Performed At This order has been auto finalized and does not contain a result. * CT ABD/PEL EXTERNAL IMAGING (06/03/2018) Narrative Performed At This order has been auto finalized and does not contain a result. in this encounter Visit Diagnoses Diagnosis Diagnosis unknown Other unknown and unspecified cause of morbidity or mortality
--- OUTSIDE RECORDS SUMMARY | 2018-08-13 12:13 | XMS REPORT | Encounter Summary ---
Author Author [facility] Organization [facility] Address Unknown Phone Unavailable Care Team Providers Care Sports Physiologist Name Role Phone Jeny Garcia MD PCP Reason for Visit * Reason Comments Edema Bilateral leg edema, SOB, no urine output from neph tube * Auth/Cert Status Reason Specialty Diagnoses / Referred By Referred To Procedures Contact Contact Diagnoses Obstructive uropathy Bilateral leg edema Encounter Details Date Type Department Care Team Description 07/01/2018 Hospital Medicine Telemetry Darrick Lazo MD Obstructive uropathy - Encounter [facility] 4th fl Unit [address] [facility] 07/08/2018 46 MS 1045 [address] [place] [address] [place] [address] [phone] [place] [address] [place] [address] [phone] Estela Avila DO [address] [place] [address] [phone] [place] [address] [place] [address] MS [facility] [place] [address] [phone] Social History Tobacco Use Types Packs/Day Years Used Date Former Smoker Quit: 06/03/2018 Smokeless Tobacco: Never Used Alcohol Use Drinks/Week oz/Week Comments No Sex Assigned at Date Recorded Not on file as of this encounter Last Filed Vital Signs Vital Sign Reading Time Taken Blood Pressure 119/96 07/08/2018 8:35 AM CDT Pulse 83 07/08/2018 8:35 AM CDT Temperature 36.8 C (98.2 F) 07/08/2018 8:35 AM CDT Respiratory Rate - - Oxygen Saturation 97% 07/08/2018 8:35 AM CDT Inhaled Oxygen - - Concentration Weight 85 kg (187 lb 6.3 oz) 07/02/2018 9:09 AM CDT Height 162.6 cm (5' 4") 07/02/2018 9:09 AM CDT Body Mass Index 32.17 07/02/2018 9:09 AM CDT in this encounter Functional Status Functional Status Response Date of Assessment Does the patient have a hearing impairment: No 07/02/2018 as of this encounter Discharge Summaries * Lottie Aguilar MD - 07/08/2018 10:28 AM CDT Formatting of this note may be different from the original. Physician Discharge Summary Name: Aracelis Espinal Date Of : 1950 Age: 67 years Admit date: 07/01/2018 Discharge date: 07/08/2018 Attending Physician: LOTTIE AGUILAR Service: [facility] 3405 Physician Summary completed by: Lottie Aguilar MD Reason for hospitalization: 67 year old female who was referred to ED from urology clinice 07/01 for exertional dyspnea and progressive BLE edema. Significant PMH: anxiety, depression, GERD, hypothyroidism, vitamin D deficiency , obesity with BMI 32.2 and recent prolonged admission at [facility] for MEE likely due to an obstructive process status post short term dialysis, bilateral ureteral stents and left nephrostomy tube placement for bilateral hydronephrosis Allergies: Codeine Admission Physical Exam notable for: Vital Signs: Last Filed In 24 Hours Vital Signs: 24 Hour Range BP: 128/67 (07/01 2100) Temp: 36.6 C (97.9 F) (07/01 2100) Pulse: 81 (07/01 2100) Respirations: 20 PER MINUTE (07/01 2100) SpO2: 100 % (07/01 2100) O2 Delivery: None (Room Air) (07/01 2100) SpO2 Pulse: 70 (07/01 1816) Height: 162.6 cm (64") (07/01 2100) BP: (117-137)/(62-83) Temp: [36.5 C (97.7 F)-36.6 C (97.9 F)] Pulse: [75-81] Respirations: [15 PER MINUTE-22 PER MINUTE] SpO2: [99 %-100 %] O2 Delivery: None (Room Air) Intensity Pain Scale 0-10 (Pain 1): 6 (07/01/182033) General: Well developed, alert, awake and oriented x3. Head: Normocephalic, without obvious abnormality, atraumatic Nose/Throat: Mucous membrane moist. Eyes: Conjunctivae/corneas clear. PERRL, EOMs intact. Neck: Supple, symmetrical, No JVD, No bruit Lungs: Clear to auscultation bilaterally Back: Non tender, no kyphosis or scoliosis. Nephrostomy tube is present on the left CVA. Heart: S1, S2 heard, Regular rate and rhythm, no murmur, click rub or gallop Abdomen: Soft, non-tender, non distended, Bowel sounds normal. No masses. No organomegaly. Extremities: No cyanosis or clubbing. Pulses: 2+ and symmetric, all extremities. +3 pitting edema in bilateral lower extremities Neurologic: CNII - XII intact. Normal strength, sensation, non focal exam Skin: Clear, no rashes Psyche: Normal affect Admission Lab/Radiology studies notable for: CBC AND DIFF Collection Time: 07/01/18 1:35 PM Result Value Ref Range White Blood Cells 9.1 4.5 - 11.0 K/UL RBC 3.38 (L) 4.0 - 5.0 M/UL Hemoglobin 9.9 (L) 12.0 - 15.0 GM/DL Hematocrit 29.7 (L) 36 - 45 % MCV 87.7 80 - 100 FL MCH 29.3 26 - 34 PG MCHC 33.4 32.0 - 36.0 G/DL RDW 16.4 (H) 11 - 15 % Platelet Count 425 (H) 150 - 400 K/UL MPV 7.4 7 - 11 FL Neutrophils 69 41 - 77 % Lymphocytes 18 (L) 24 - 44 % Monocytes 9 4 - 12 % Eosinophils 3 0 - 5 % Basophils 1 0 - 2 % Absolute Neutrophil Count 6.30 1.8 - 7.0 K/UL Absolute Lymph Count 1.70 1.0 - 4.8 K/UL Absolute Monocyte Count 0.80 0 - 0.80 K/UL Absolute Eosinophil Count 0.20 0 - 0.45 K/UL Absolute Basophil Count 0.00 0 - 0.20 K/UL COMPREHENSIVE METABOLIC PANEL Collection Time: 07/01/18 1:35 PM Result Value Ref Range Sodium 136 (L) 137 - 147 MMOL/L Potassium 4.2 3.5 - 5.1 MMOL/L Chloride 103 98 - 110 MMOL/L Glucose 89 70 - 100 MG/DL Blood Urea Nitrogen 32 (H) 7 - 25 MG/DL Creatinine 1.53 (H) 0.4 - 1.00 MG/DL Calcium 9.6 8.5 - 10.6 MG/DL Total Protein 7.1 6.0 - 8.0 G/DL Total Bilirubin 0.4 0.3 - 1.2 MG/DL Albumin 3.8 3.5 - 5.0 G/DL Alk Phosphatase 48 25 - 110 U/L AST (SGOT) 13 7 - 40 U/L CO2 24 21 - 30 MMOL/L ALT (SGPT) <3 (L) 7 - 56 U/L Anion Gap 9 3 - 12 eGFR Non 34 (L) >60 mL/min eGFR 41 (L) >60 mL/min MAGNESIUM Collection Time: 07/01/18 1:35 PM Result Value Ref Range Magnesium 2.0 1.6 - 2.6 mg/dL URINALYSIS DIPSTICK REFLEX TO CULTURE Collection Time: 07/01/18 2:30 PM Result Value Ref Range Color,UA YELLOW Turbidity,UA CLEAR CLEAR-CLEAR Specific [place]-Urine 1.010 1.003 - 1.035 pH,UA 6.0 5.0 - 8.0 Protein,UA 1+ (A) NEG-NEG Glucose,UA NEG NEG-NEG Ketones,UA NEG NEG-NEG Bilirubin,UA NEG NEG-NEG Blood,UA 3+ (A) NEG-NEG Urobilinogen,UA NORMAL NORM-NORMAL Nitrite,UA NEG NEG-NEG Leukocytes,UA 2+ (A) NEG-NEG Urine Ascorbic Acid, UA NEG NEG-NEG URINALYSIS MICROSCOPIC REFLEX TO CULTURE Collection Time: 07/01/18 2:30 PM Result Value Ref Range WBCs,UA 10-20 0 - 2 /HPF RBCs,UA PACKED 0 - 3 /HPF Comment,UA Urine submitted for reflex culture if criteria are met:WBC>10, positive nitrite and/or >=1+ leukocyte esterase. If quantity is not sufficient, an addendum will follow. MucousUA TRACE Bacteria,UA MODERATE (A) NEG-NEG Squamous Epithelial Cells 0-2 0 - 5 POC TROPONIN Collection Time: 07/01/18 2:31 PM Result Value Ref Range [id number] 0.00 0.00 - 0.05 NG/ML BNP POC ER Collection Time: 07/01/18 2:31 PM Result Value Ref Range BNP POC 123.0 (H) 0 - 100 PG/ML Glucose: 89 (07/01/18 1335) Brief Hospital Course: The patient was admitted and the following issues were addressed during this hospitalization: 1. EME likely due to obstruction complicated by bilateral hydronephrosis and pyuria. Renal and urology were consulted. Work-up at [facility] was significant for the following studies: -Abdominal and pelvic CT at OSH showed bladder distention with bilateral hydronephrosis and concern for colonic mass. -Colonoscopy at OSH to evaluate for colonic mass found a redundant sigmoid colon but no mass. -Kidney US at OSH 06/24/2018 showed bilateral ureteral stents; moderate right hydronephrosis; right renal pelvis measuring at about 3.2 cm; and left kidney with heterogeneous echotexture and echogenicity that could indicate possible left pyelonephritis within the right clinical setting. -MRI of the pelvis at OSH 06/25 showed circumferential abnormal urinary bladder wall thickening due to severe cystitis versus chronic urinary bladder outlet dysfunction versus aggressive neoplastic mucosal process of the urinary bladder ; no evidence of bulky lymphadenopathy in the pelvis; mild anasarca; and mild to distal right ureter appears to be moderately dilated. -Renal scan at OSH 06/17 showed 70+ function of left kidney and 20 or less function of right kidney. -Status post bilateral ureteral stents (end may) and left nephrostomy tube placement (06/19) at OSH. -During her admission at [facility], her creatinine peaked at 9. Creatinine at discharge was 1.6. Work-up at our facility was significant for the following: -CT abdomen and pelvis with contrast at admission showed left percutaneous nephrostomy catheter with large left subcapsular hemorrhage compressing the left kidney, bilateral nephroureteral stent in place with persistent moderate right hydronephrosis, and symmetric presacral and perirectal soft tissue thickening -UA was positive for 1+ protein, 3+ blood, 2+ leukocytes, 10-20 WBCs, moderate bacteria, and 0-2 SE but urine cultures 07/01 was negative. Pyuria likely due to recent instrumentation. -Status post right nephrostomy tube placement by IR 07/02 -Bedside cystoscopy 07/03 showed marked large dilated vessels of the bladder mucosa as well as bullous edema but no evidence of tumor or stone. Bilateral ureteral stents were removed. -Venogram to evaluate for IVC compression 07/04 showed patent IVC with no evidence of treatable stenosis -She completed a course of ertapenem (07/01-07/02), which was stopped when infection was ruled out. Based on above work-up, etiology for obstructive process is still unclear, so she will need continuing monitoring as an outpatient to assess for improvement or worsening of condition. She has urology follow-up scheduled with Dr. Moseley at 8:15 am. She will have her primary care provider refer her to a hvac engineering technician closer to home. Nephrostomy tubes should be flushed with 10 ml NS BID. 2. Dyspnea on exertion and BLE edema likely due to renal failure. CXR at admission showed no acute findings. Echo showed EF 60%, mild LVH, and normal diastolic function. TSH was normal. BNP at admission was 123. Venogram 07/04 showed patent IVC. She completed a course of IV diuresis. She was discharged on Lasix 40 mg daily. 3. Occlusive subacute RLE thrombus. BLE doppler at OSH 06/22 was negative for DVT. Left nephrostomy tube placement at OSH was complicated by subcapsular hematoma requiring blood and platelets transfusion. BLE venous doppler showed occlusive subacute thrombus in one of the duplicated R popliteal veins. She was started on eliquis 5mg BID (lower dose was chosen due to increased risk for bleeding). Given her recent prolong hospitalization, this is likely provoke clotting event, so we will plan on 3 months of anticoagulation. 4. Acute debility. PT and OT recommended home with library clerical assistant versus home health. 5. Diet. She was discharged on a low sodium diet. Dietitian was consulted per patient's request for low-sodium education. 6. All other chronic medical issues were stable, so no further changes were made other outpatient regimen. 7. Disposition Discharge to home with [facility]. Condition at Discharge: Stable Discharge Diagnoses: Hospital Problems Active Problems Hydronephrosis Obstructive uropathy Bilateral leg edema Anxiety Major depressive disorder with single episode, in remission (HCC) Gastroesophageal reflux disease without esophagitis Hypothyroidism due to acquired atrophy of thyroid Vitamin D deficiency MEE (acute kidney injury) ([facility]) Pyuria Volume overload Acute deep vein thrombosis (DVT) of distal end of right lower extremity ([facility]) Debility Obesity (BMI 30-39.9) Surgical Procedures: None Significant Diagnostic Studies and Procedures: noted in brief hospital course Consults: Nephrology and Urology Patient Disposition: Home with Home Health Care Patient instructions/medications: Basic Metabolic Panel (BMP) Standing Status: Future Standing Exp. Date: 07/07/19 Activity as Tolerated It is important to keep increasing your activity level after you leave the hospital. Moving around can help prevent blood clots, lung infection (pneumonia ) and other problems. Gradually increasing the number of times you are up moving around will help you return to your normal activity level more quickly. Continue to increase the number of times you are up to the chair and walking daily to return to your normal activity level. Begin to work toward your normal activity level at discharge Report These Signs and Symptoms Please contact your doctor if you have any of the following symptoms: Fevers, chills, abdominal pain, nausea, vomiting, worsening lower extremity swelling, or decreased urine output from urine nephrostomy tubes Questions About Your Stay For questions or concerns regarding your hospital stay. Call [phone] Discharging attending physician: LOTTIE AGUILAR [[id number]] Low Sodium Diet You will need to monitor the amount of sodium in your diet. Do not eat more than 2g (grams) or 2000mg (milligrams) per day. If you have questions regarding your diet at home, you may contact a dietitian at . Other Line Care Flush bilateral nephrostomy tube with 10 ml of normal saline twice a day. Return Appointment Keep your appointment with Dr. Paulino of urology as noted below. Please arrange for follow-up with Dr. Jeny Garcia in 1-2 weeks. Please bring a copy of your discharge summary to this follow-up. You will need lab to monitor your electrolytes and renal function at this follow-up appointment. You will also need a referral to a hvac engineering technician closer to your home. Current Discharge Medication List START taking these medications Details apixaban (ELIQUIS) 5 mg tablet Take one tablet by mouth twice daily. Qty: 60 tablet, Refills: 3 PRESCRIPTION TYPE: Normal CONTINUE these medications which have been CHANGED or REFILLED Details furosemide (LASIX) 40 mg tablet Take one tablet by mouth every morning. Qty: 90 tablet, Refills: 3 PRESCRIPTION TYPE: Normal CONTINUE these medications which have NOT CHANGED Details acetaminophen (TYLENOL) 325 mg tablet Take 1 tablet by mouth every 6 hours as needed (headache). PRESCRIPTION TYPE: Historical Med calcium carbonate (TUMS) 500 mg (200 mg elemental calcium) chewable tablet Chew 1 tablet by mouth twice daily. PRESCRIPTION TYPE: Historical Med carboxymethylcellulose (REFRESH PLUS) 0.5 % dpet Apply 1 drop to both eyes as Needed. PRESCRIPTION TYPE: Historical Med clonazePAM (KLONOPIN) 1 mg tablet Take 1 tablet by mouth daily as needed for panic attacks PRESCRIPTION TYPE: Historical Med docusate (COLACE) 100 mg capsule Take 100 mg by mouth twice daily. PRESCRIPTION TYPE: Historical Med ergocalciferol (VITAMIN D-2) 50,000 unit capsule Take 1 capsule by mouth every . PRESCRIPTION TYPE: Historical Med HYDROcodone/acetaminophen(+) (NORCO) 10/325 mg tablet Take 1 tablet by mouth every 6 hours as needed PRESCRIPTION TYPE: Historical Med levothyroxine (SYNTHROID) 50 mcg tablet Take 50 mcg by mouth daily 30 minutes before breakfast. PRESCRIPTION TYPE: Historical Med nicotine (NICODERM CQ STEP 1) 21 mg/day patch Apply 1 patch to top of skin as directed every 24 hours. PRESCRIPTION TYPE: Historical Med pantoprazole DR (PROTONIX) 40 mg tablet Take 40 mg by mouth daily. PRESCRIPTION TYPE: Historical Med The following medications were removed from your list. This list includes medications discontinued this stay and those removed from your prior med list in our system cephalexin (KEFLEX) 500 mg capsule Scheduled appointments: Jul 30, 2018 1:00 PM CDT (Arrive by 12:45 PM) Post - Op with Perry Moseley MD [facility] - IC Exam (CC Exam) [id number] [facility] [id number] Pending items needing follow up: none Signed: Lottie Aguilar MD 07/08/2018 cc: Primary Care Physician: Jeny Garcia Verified in this encounter Discharge Instructions * Discharge Instr - Case Management - Roxi Decker RN - 07/08/2018 9:55 AM CDT You have been set up with [facility] for nursing home, PT and OT. . They will contact you later today or tomorrow to set up your first appointment. It you don't hear from them by tomorrow, please contact them at ([phone]). * Patient Instructions - Cyndie Verasarecharles RN - 07/04/2018 7:51 AM CDT INTERVENTIONAL RADIOLOGY DISCHARGE INSTRUCTIONS IVC FILTER PLACEMENT An inferior vena cava (IVC) filter is a small, umbrella-shaped device that prevents blood clots in your lower extremities from migrating to your heart and lungs. The inferior vena cava is the large vein that collects blood from the lower body just before it enters the heart. The filter is placed using a small catheter either through the femoral vein in your groin or the internal jugular vein in your neck. (The placement location best for you will be determined by the radiologist performing the procedure). This procedure may be done if you have a blood clot in your leg and also may be done before surgery if you are at high risk of developing blood clots. The filter may be left in for an extended period or removed at a later time when your physician has determined that it is no longer needed. POST-PROCEDURE ACTIVITY: A responsible adult must drive you home after the procedure. If you receive sedation or anesthesia, you should not drive, operate heavy machinery or do anything that requires concentration for at least 24 hours. It is recommended that a responsible adult be with you until morning. Rest today; you may resume normal activity tomorrow. Do not lift more than 5 lbs. for at least 72 hours after the procedure. POST-PROCEDURE SITE CARE: You will have a small bandage over the site. Keep this dry. You may remove it in 24 hours. You may shower in 24 hours, after removing the bandage. Do not submerge the site underwater for about 1 week or until fully healed ( no tub bath, swimming/hot tub). Be sure your hands are clean when touching near the site. Do not use ointments, creams or powders on or near the puncture site. DIET/MEDICATIONS: You may resume your previous diet after the procedure. If you receive sedation or narcotic pain medications, avoid any foods or beverage containing alcohol for at least 24 hours. Please see the Medication Reconciliation sheet for instructions regarding resuming your home medications. CALL THE DOCTOR IF: Bright red blood has soaked the bandage. You have severe pain not relieved by medication. Some soreness at the site is to be expected. You have signs of infection such as: Chills, body aches, fever greater than 101F, redness, swelling or warmth at the puncture site. For any of the above symptoms or for problems or concerns related to the procedure, call [phone] for Sunday-Sunday 7-5. After-hours and weekends, please call [phone] and ask for the Interventional Peel Oven Tender on-call. in this encounter Medications at Time of Discharge Medication Sig. Disp. Refills Start Date End Date acetaminophen (TYLENOL) Take 1 tablet by mouth 325 mg tablet every 6 hours as needed (headache). apixaban (ELIQUIS) 5 mg Take one tablet by mouth 60 tablet 3 2017 tablet twice daily. calcium carbonate (TUMS) Chew 1 tablet by mouth 500 mg (200 mg elemental twice daily. calcium) chewable tablet carboxymethylcellulose Apply 1 drop to both eyes (REFRESH PLUS) 0.5 % dpet as Needed. clonazePAM (KLONOPIN) 1 Take 1 tablet by mouth mg tablet daily as needed for panic attacks docusate (COLACE) 100 mg Take 100 mg by mouth capsule twice daily. ergocalciferol (VITAMIN Take 1 capsule by mouth D-2) 50,000 unit capsule every . furosemide (LASIX) 40 mg Take one tablet by mouth 90 tablet 3 2017 tablet every morning. HYDROcodone/acetaminophen Take 1 tablet by mouth 06/27/2018 (+) (NORCO) 10/325 mg every 6 hours as needed tablet levothyroxine (SYNTHROID) Take 50 mcg by mouth 03/22/2018 50 mcg tablet daily 30 minutes before breakfast. nicotine (NICODERM CQ Apply 1 patch to top of STEP 1) 21 mg/day patch skin as directed every [address] Take 40 mg by mouth 03/22/2018 (PROTONIX) 40 mg tablet daily. as of this encounter Progress Notes * Michael Murray RN - 07/08/2018 1:12 PM CDT I have reviewed the notes, assessment, and/or procedures performed by Lynda Rosio, RN and concur with her documentation unless otherwise noted. * Marisol Arias MD - 07/08/2018 11:21 AM CDT Formatting of this note may be different from the original. Renal Progress Note Name: Aracelis Espinal Today's Date: 07/08/2018 Admission Date: 07/01/2018 LOS: 7 days Assessment and Plan Active Problems: Hydronephrosis Obstructive uropathy Bilateral leg edema Anxiety Major depressive disorder with single episode, in remission (HCC) Gastroesophageal reflux disease without esophagitis Hypothyroidism due to acquired atrophy of thyroid Vitamin D deficiency MEE (acute kidney injury) (HCC) Pyuria Volume overload Acute deep vein thrombosis (DVT) of distal end of right lower extremity (HCC) Debility Obesity (BMI 30-39.9) Aracelis Espinal is a 67 y.o. female from obstruction and lower extremity edema 1. MEE - from obstruction - improving - now with bilateral nephrostomy tubes - did require HD in early June off HD now - has TDC 2. Lower extremity edema - no IVC obstruction 3. Bilateral hydronephrosis - with failed ureter stents now with bilateral PCN 4. Anemia 5. RLE thrombus Recommendations - renal function stable - ok with changing to 40mg oral lasix once a day - she would like to find hvac engineering technician close to home in [place] and has PCP appointment his week Patient discussed with primary team Marisol Arias MD Pager [phone] Subjective Aracelis Espinal is a 67 y.o. female no acute events overnight. She feels her edema is improving. She denies any chest pain,nausea, vomiting, diarrhea or problems breathing Medications Medications MEDS apixaban 5 mg Oral BID furosemide 40 mg Intravenous QDAY levothyroxine 50 mcg Oral QDAY() nicotine 1 patch Transdermal Q24H* pantoprazole DR 40 mg Oral QDAY() senna/docusate 1 tablet Oral BID IV MEDS Prn acetaminophen Q6H PRN 650 mg at 07/07/18 1219, HYDROcodone/ acetaminophen Q6H PRN 1 tablet at 07/08/18 1040, ondansetron Q6H PRN Physical Exam Vital Signs: Last Filed In 24 Hours Vital Signs: 24 Hour Range BP: 119/96 (07/08 835) Temp: 36.8 C (98.2 F) (07/08 835) Pulse: 83 (07/08 835) Respirations: 18 PER MINUTE (07/08 835) SpO2: 97 % (07/08 835) O2 Delivery: None (Room Air) (07/08 835) BP: (98-119)/(53-96) Temp: [36.7 C (98.1 F)-37.3 C (99.1 F)] Pulse: [67-94] Respirations: [18 PER MINUTE-20 PER MINUTE] SpO2: [93 %-100 %] O2 Delivery: None (Room Air) Intensity Pain Scale 0-10 (Pain 1): 3 (07/07/18 1700) Intake/Output Summary (Last 24 hours) at 07/08/18 1121 Last data filed at 07/08/18 0915 Gross per 24 hour Intake 740 ml Output 2350 ml Net -1610 ml Vitals: 07/01/18 1223 07/01/18 2100 07/02/18 0909 Weight: 83.9 kg (185 lb) 85.1 kg (187 lb 9.8 oz) 85 kg (187 lb 6.3 oz) Gen: Alert and Oriented, No Acute Distress HEENT: Sclera normal; MMM CV: S1 and S2 normal, no rubs, murmurs or gallops Pulm: Clear to Auscultation bilateral GI: BS+ x4, non-tender to palpation Neuro: Grossly normal, moving all extremities, speech intact Ext: 3+ edema in calves 2+ in thighs; no clubbing or cyanosis Skin: no rash Labs: Recent Labs 07/06/1841207/07/18 0606 07/08/18 0546 NA 134* 134* 136* K 3.6 3.4* 3.6 CL 99 98 100 CO2 GAP 9 9 10 BUN 36* 36* 35* CR 1.41* 1.52* 1.44* GLU 102* 108* 109* CA 9.4 9.4 9.5 ALBUMIN 3.5 3.6 3.6 Recent Labs 07/06/1841207/07/18 0606 07/08/18 0546 WBC 8.3 8.7 8.4 HGB 9.4* 9.5* 9.4* HCT 27.8* 29.2* 28.5* PLTCT 383 377 375 AST 12 12 13 ALT 4* 5* 6* ALKPHOS 49 54 52 Estimated Creatinine Clearance: 41.1 mL/min (A) (based on SCr of 1.44 mg/dL (H)) . Vitals: 07/01/18 1223 07/01/18 2100 07/02/18 0909 Weight: 83.9 kg (185 lb) 85.1 kg (187 lb 9.8 oz) 85 kg (187 lb 6.3 oz) No results for input(s): PHART, PO2ART in the last 72 hours. Invalid input(s): PC02A * Vanessa Castro, LAUNDRY SUPERVISOR - 07/08/2018 10:50 AM CDT PHYSICAL THERAPY NOTE Patient was unavailable for physical therapy. Pt was standing at bedside packing (pt is on standard fall precautions/up ad payton). She stated she is going home once her sister arrives around noon. Pt voiced being excited since she has been in the hospital most of the summer. Physical therapy will continue to follow and provide intervention as indicated. Therapist: Vanessa Castro, Physical therapist library clerical assistant Date: 07/08/2018 * Lottie Aguilar MD - 07/08/2018 10:02 AM CDT No overnight events. No fevers or chills. No chest pain, palpitation, shortness of breath. Lower extremity swelling has improved. No other complaints. Vitals, exam, and labs are stable. Creatinine is down to 1.44 with reducing IV Lasix. Discuss with renal. They are okay with discharge with follow-up BNP in 1 week. She is to remain on Lasix 40 mg daily. Deandra is covered by her insurance and she was given a one-month co-pay card. She has arranged follow-up with her PCP. She will asked her PCP for nephrology referral closer to home. She will continue to follow urology at our facility. Over 45 minutes was spent discharge care coordination education * Nancy Warren, ELADIO - 07/08/2018 5:16 AM CDT Shift: Night Nutrition: Tolerating low sodium diet with 2 L fluid restriction. Activity: Up ad payton Pain: No complaints of pain this shift. CV: S1, S2, VSS. Resp: RA Neuro: Alert and oriented x 4. GI/: Bilateral nephrostomy, no BM reported this shift. * Norma Medina, ELADIO - 07/07/2018 5:48 PM CDT Shift: day Mentation: alert and oriented x4 Cardiac: S1, S2 Respiratory: RA, non-labored GI/: voids, bilateral nephrostomy tubes, no BM today Nutrition: low sodium diet with 2L fluid restriction Activity: up ad payton Pain: c/o headache today medication effective Family: not at bedside Hygiene: self care with staff assist as needed. Dressing changed Follow up: care plan on-going * Lottie Aguilar MD - 07/07/2018 7:20 AM CDT Formatting of this note may be different from the original. Hospitalist progress note rAacelis Espinal Admission Date: 07/01/2018 Today's Date: 07/07/18 Changes for today assessment and plan noted in bold. Assessment/Plan: 67 year old female with anxiety, depression, GERD, hypothyroidism, vitamin D deficiency, and recent prolonged admission at [facility] for MEE likely due to an obstructive process status post short term dialysis, bilateral ureteral stents and left nephrostomy tube placement for bilateral hydronephrosis who was referred to ED from urology clinice 07/01 for exertional dyspnea and progressive BLE edema. MEE likely due to obstruction complicated by bilateral hydronephrosis and pyuria. Renal and urology following. -Abdominal and pelvic CT at OSH showed bladder distention with bilateral hydronephrosis and concern for colonic mass. -Colonoscopy at OSH to evaluate for colonic mass found a redundant sigmoid colon but no mass. -Kidney US at OSH 06/24/2018 showed bilateral ureteral stents; moderate right hydronephrosis; right renal pelvis measuring at about 3.2 cm; and left kidney with heterogeneous echotexture and echogenicity that could indicate possible left pyelonephritis within the right clinical setting. -MRI of the pelvis at OSH 06/25 showed circumferential abnormal urinary bladder wall thickening due to severe cystitis versus chronic urinary bladder outlet dysfunction versus aggressive neoplastic mucosal process of the urinary bladder ; no evidence of bulky lymphadenopathy in the pelvis; mild anasarca; and mild to distal right ureter appears to be moderately dilated. -Renal scan at OSH 06/17 showed 70+ function of left kidney and 20 or less function of right kidney. -Status post bilateral ureteral stents (end may) and left nephrostomy tube placement (06/19) at OSH. -During her admission at [facility], her creatinine peaked at 9. Creatinine at discharge was 1.6. -CT abdomen and pelvis with contrast at admission showed left percutaneous nephrostomy catheter with large left subcapsular hemorrhage compressing the left kidney, bilateral nephroureteral stent in place with persistent moderate right hydronephrosis, and symmetric presacral and perirectal soft tissue thickening -UA was positive for 1+ protein, 3+ blood, 2+ leukocytes, 10-20 WBCs, moderate bacteria, and 0-2 SE but urine cultures 07/01 was negative. Pyuria likely due to recent instrumentation. -Status post right nephrostomy tube placement by IR 07/02 -Bedside cystoscopy 07/03 showed marked large dilated vessels of the bladder mucosa as well as bullous edema but no evidence of tumor or stone. Bilateral ureteral stents were removed. -Venogram to evaluate for IVC compression 07/04 showed patent IVC with no evidence of treatable stenosis -Completed course of ertapenem (07/01-07/02) -She has urology follow-up scheduled with Dr. Moseley 07/29 at 8:15 am. -Nephrostomy tubes should be flushed with 10 ml NS BID Dyspnea on exertion and BLE edema likely due to renal failure. Resolved. -CXR at admission showed no acute findings -Echo showed EF 60%, mild LVH, and normal diastolic function. -TSH was normal. -BNP at admission was 123. -Venogram 07/04 showed patent IVC -Decrease IV lasix 40 mg IV daily due to raise in creatinine. Occlusive subacute RLE thrombus -BLE doppler at OSH 06/22 was negative for DVT -Left nephrostomy tube placement at OSH was complicated by subcapsular hematoma requiring blood and platelets transfusion. -BLE venous doppler showed occlusive subacute thrombus in one of the duplicated R popliteal veins -Continue eliquis 5mg BID (lower dose was chosen due to increased risk for bleeding) -At this time, we will plan on 3 months of anticoagulation. GERD. PPI. Anxiety and depression. Continue clonazepam. Hypothyroidism. TSH was normal. Continue levothyroxine. Vitamin D deficiency. Continue ergocalciferol. Hypothyroidism. Continue levothyroxine. Chronic normocytic anemia. Iron studies consistent with anemia of chronic disease Acute debility. PT and OT recommended home with library clerical assistant versus home health. FEN: -No IVF -Hypokalemia. Replace. -Low Na diet with 2L fluid restriction. Dietitian consult per patient's request for low-sodium education. DVT ppx: Eliquis Full code. Confirm with patient. Kimber (sister) is DPOA: [phone]. Disp: Continue inpatient care. Anticipate discharge Sunday. Will need resumption Via [facility] at discharge. I spent a total of 45 minutes in pt care today with an estimated 20 minutes spent reviewing chart and coordinating care. Reminder of time was spent examining patient, discussing care plan, and answering patient questions in the patient's room. Complexity of medical decision making is high because of the multi-system nature of disease process. Lottie Aguilar MD Hospitalist [phone] __ Subjective: No overnight events. Difficulty sleeping last night due to interruptions. No fevers or chills. No chest pain, palpitation, or shortness of breath. No abdominal pain, nausea, or vomiting. Had a bowel movement yesterday. Urine output and her nephrostomy bag is now clear without evidence of blood. Leg swelling improved but still feels tight. No other complaints. No family in room. Care plan discussed. Allergies: Codeine Medications: Scheduled Meds: apixaban (ELIQUIS) tablet 5 mg 5 mg Oral BID furosemide (LASIX) injection 40 mg 40 mg Intravenous BID(9-17) levothyroxine (SYNTHROID) tablet 50 mcg 50 mcg Oral QDAY(07) nicotine (NICODERM CQ STEP 1) 21 mg/day patch 1 patch 1 patch Transdermal Q24H* pantoprazole DR (PROTONIX) tablet 40 mg 40 mg Oral QDAY() senna/docusate (SENOKOT-S) tablet 1 tablet 1 tablet Oral BID Continuous Infusions: PRN and Respiratory Meds:acetaminophen Q6H PRN, HYDROcodone/acetaminophen Q6H PRN, ondansetron Q6H PRN Physical Exam: Vital Signs: Last Filed In 24 Hours Vital Signs: 24 Hour Range BP: 116/68 (07/07 400) Temp: 37 C (98.6 F) (07/07 400) Pulse: 77 (07/07 400) Respirations: 18 PER MINUTE (07/07 400) SpO2: 97 % (07/07 400) O2 Delivery: None (Room Air) (07/07 400) BP: (100-116)/(56-68) Temp: [36.6 C (97.9 F)-37 C (98.6 F)] Pulse: [75-86] Respirations: [18 PER MINUTE] SpO2: [97 %-100 %] O2 Delivery: None (Room Air) Intensity Pain Scale 0-10 (Pain 1): 5 (07/06/181816) Intake/Outpur Summary: (Last 24 hours) Intake/Output Summary (Last 24 hours) at 07/07/18719 Last data filed at 07/07/18409 Gross per 24 hour Intake 670 ml Output 3325 ml Net -2655 ml Physical Exam: General: alert and oriented to person, place, and time. No acute distress. Heart: regular rhythm. Normal rate. Normal S1 and S2. No mumrurs, rubs or gallops. Lungs: clear to ascultation. No wheezes, rales or coarseness. Abdomen: Normal bowel sounds. Soft and not distended. Non tender to palpation. Extremities: 3 plus pitting edema but no clubbing or cyanosis. Distal pulses intact. : Bilateral nephrostomy tubes with clear urine noted in bag Laboratory: Recent Labs 07/05/1852 07/06/1841207/07/18605 NA 135* 134* 134* K 3.8 3.6 3.4* CL 100 99 98 CO2 27 26 27 BUN 33* 36* 36* CR 1.47* 1.41* 1.52* GLU 110* 102* 108* GAP 8 9 9 GFR 36* 37* 34* CA 9.3 9.4 9.4 Recent Labs 07/05/18 0552 07/06/183 07/07/18 06 ALKPHOS 48 49 54 AST 10 12 12 ALT 4* 4* 5* TOTPROT 6.5 6.6 6.9 TOTBILI 0.4 0.4 0.4 ALBUMIN 3.4* 3.5 3.6 Recent Labs 07/05/18 0552 07/06/18 0413 07/07/18 0606 HGB 10.2* 9.4* 9.5* HCT 29.7* 27.8* 29.2* WBC 8.2 8.3 8.7 PLTCT 374 383 377 No results for input(s): PHART, PCO2A, PO2ART, HCO3A, Q7AWYAVCA in the last 72 hours. * Leydi Ramos RN - 07/07/2018 5:03 AM CDT Shift: Night Mentation: A&Ox4 Cardiac: S1, S2; med surg status Respiratory: RA GI/: bilateral nephrostomy tubes, LBM 07/06. Nutrition: low NA; 2L FR Activity: AL Pain: no c/o pain Follow up: care plan on-going * Norma Medina RN - 07/06/2018 5:49 PM CDT Shift: day Mentation: alert and oriented x4 Cardiac: S1, S2 Respiratory: RA, non-labored GI/: bilateral nephrostomy tubes, voids, BM today. Pt voided small blood clot this evening. Nutrition: low NA 2L fluid restriction Activity: up ad payton Pain: headache earlier medication effective Family: not at bedside Hygiene: self care with staff assist as needed. Nephrostomy dressing changed. Follow up: care plan on-going * Lottie Aguilar MD - 07/06/2018 8:16 AM CDT Formatting of this note may be different from the original. Hospitalist progress note Aracelis Espinal Admission Date: 07/01/2018 Today's Date: 07/06/18 Changes for today assessment and plan noted in bold. Assessment/Plan: 67 year old female with anxiety, depression, GERD, hypothyroidism, vitamin D deficiency, and recent prolonged admission at [facility] for MEE likely due to an obstructive process status post short term dialysis, bilateral ureteral stents and left nephrostomy tube placement for bilateral hydronephrosis who was referred to ED from urology clinice 07/01 for exertional dyspnea and progressive BLE edema. MEE likely due to obstruction complicated by bilateral hydronephrosis and pyuria. Renal and urology following. -Abdominal and pelvic CT at OSH showed bladder distention with bilateral hydronephrosis and concern for colonic mass. -Colonoscopy at OSH to evaluate for colonic mass found a redundant sigmoid colon but no mass. -Kidney US at OSH 06/24/2018 showed bilateral ureteral stents; moderate right hydronephrosis; right renal pelvis measuring at about 3.2 cm; and left kidney with heterogeneous echotexture and echogenicity that could indicate possible left pyelonephritis within the right clinical setting. -MRI of the pelvis at OSH 06/25 showed circumferential abnormal urinary bladder wall thickening due to severe cystitis versus chronic urinary bladder outlet dysfunction versus aggressive neoplastic mucosal process of the urinary bladder ; no evidence of bulky lymphadenopathy in the pelvis; mild anasarca; and mild to distal right ureter appears to be moderately dilated. -Renal scan at OSH 06/17 showed 70+ function of left kidney and 20 or less function of right kidney. -Status post bilateral ureteral stents (end may) and left nephrostomy tube placement (06/19) at OSH. -During her admission at [facility], her creatinine peaked at 9. Creatinine at discharge was 1.6. -CT abdomen and pelvis with contrast at admission showed left percutaneous nephrostomy catheter with large left subcapsular hemorrhage compressing the left kidney, bilateral nephroureteral stent in place with persistent moderate right hydronephrosis, and symmetric presacral and perirectal soft tissue thickening -UA was positive for 1+ protein, 3+ blood, 2+ leukocytes, 10-20 WBCs, moderate bacteria, and 0-2 SE but urine cultures 07/01 was negative. Pyuria likely due to recent instrumentation. -Status post right nephrostomy tube placement by IR 07/02 -Bedside cystoscopy 07/03 showed marked large dilated vessels of the bladder mucosa as well as bullous edema but no evidence of tumor or stone. Bilateral ureteral stents were removed. -Venogram to evaluate for IVC compression 07/04 showed patent IVC with no evidence of treatable stenosis -Completed course of ertapenem (07/01-07/02) -She has urology follow-up scheduled with Dr. Moseley 07/29 at 8:15 am. -Nephrostomy tubes should be flushed with 10 ml NS BID Dyspnea on exertion and BLE edema likely due to renal failure. -CXR at admission showed no acute findings -Echo showed EF 60%, mild LVH, and normal diastolic function. -TSH was normal. -BNP at admission was 123. -Venogram 07/04 showed patent IVC -Increase IV lasix to 40 mg IV BID. Occlusive subacute RLE thrombus -BLE doppler at OSH 06/22 was negative for DVT -Left nephrostomy tube placement at OSH was complicated by subcapsular hematoma requiring blood and platelets transfusion. -BLE venous doppler showed occlusive subacute thrombus in one of the duplicated R popliteal veins -Continue eliquis 5mg BID (lower dose was chosen due to increased risk for bleeding) GERD. PPI. Anxiety and depression. Continue clonazepam. Hypothyroidism. TSH was normal. Continue levothyroxine. Vitamin D deficiency. Continue ergocalciferol. Hypothyroidism. Continue levothyroxine. Chronic normocytic anemia. Iron studies consistent with anemia of chronic disease Acute debility. PT and OT recommended home with library clerical assistant versus home health. FEN: -No IVF -Lytes ok -Low Na diet with 2L fluid restriction. Dietitian consult per patient's request for low-sodium education. DVT ppx: Eliquis Full code. Confirm with patient. Kimber (sister) is DPOA: [phone]. Disp: Continue inpatient care. Anticipate discharge Sunday. Will need resumption Via [facility] at discharge. I spent a total of 45 minutes in pt care today with an estimated 20 minutes spent reviewing chart and coordinating care. Reminder of time was spent examining patient, discussing care plan, and answering patient questions in the patient's room. Complexity of medical decision making is high because of the multi-system nature of disease process. Lottie Aguilar MD Hospitalist [phone] __ Subjective: No overnight events. Feeling better. No fevers or chills. No chest pain, palpitation, shortness of breath. Appetite is good but food is bad. No nausea, vomiting, abdominal pain. Had a regular bowel movement yesterday. Reports a little bit blood in her right nephrostomy bag but no urinary complaints. Lower extremity swelling unchanged. No other complaints. No family in room but sisters on the phone. Care plan discussed. Allergies: Codeine Medications: Scheduled Meds: apixaban (ELIQUIS) tablet 5 mg 5 mg Oral BID furosemide (LASIX) injection 40 mg 40 mg Intravenous QDAY levothyroxine (SYNTHROID) tablet 50 mcg 50 mcg Oral QDAY(07) nicotine (NICODERM CQ STEP 1) 21 mg/day patch 1 patch 1 patch Transdermal Q24H* pantoprazole DR (PROTONIX) tablet 40 mg 40 mg Oral QDAY() senna/docusate (SENOKOT-S) tablet 1 tablet 1 tablet Oral BID Continuous Infusions: PRN and Respiratory Meds:acetaminophen Q6H PRN, HYDROcodone/acetaminophen Q6H PRN Physical Exam: Vital Signs: Last Filed In 24 Hours Vital Signs: 24 Hour Range BP: 110/62 (07/06 813) Temp: 36.7 C (98 F) (07/06 813) Pulse: 81 (07/06 813) Respirations: 18 PER MINUTE (07/06 813) SpO2: 98 % (07/06 813) O2 Delivery: None (Room Air) (07/06 813) BP: (103-115)/(59-72) Temp: [36.6 C (97.9 F)-36.9 C (98.4 F)] Pulse: [75-95] Respirations: [12 PER MINUTE-18 PER MINUTE] SpO2: [92 %-98 %] O2 Delivery: None (Room Air) Intensity Pain Scale 0-10 (Pain 1): 3 (07/05/182029) Intake/Outpur Summary: (Last 24 hours) Intake/Output Summary (Last 24 hours) at 07/06/18 0816 Last data filed at 07/06/18 0444 Gross per 24 hour Intake 1020 ml Output 2200 ml Net -1180 ml Physical Exam: General: alert and oriented to person, place, and time. No acute distress. Heart: regular rhythm. Normal rate. Normal S1 and S2. No mumrurs, rubs or gallops. Lungs: clear to ascultation. No wheezes, rales or coarseness. Abdomen: Normal bowel sounds. Soft and not distended. Non tender to palpation. Extremities: 3 plus pitting edema but no clubbing or cyanosis. Distal pulses intact. : Bilateral nephrostomy tubes noted. Right nephrostomy tube with bloodstained urine in bag. Laboratory: Recent Labs 07/04/18 0603 07/05/18 0552 07/06/18 0413 NA 132* 135* 134* K 4.1 3.8 3.6 CL 99 100 99 CO2 27 27 26 BUN 37* 33* 36* CR 1.58* 1.47* 1.41* GLU 106* 110* 102* GAP 6 8 9 GFR 33* 36* 37* CA 9.3 9.3 9.4 Recent Labs 07/04/18 0603 07/05/18 0552 07/06/18 0413 ALKPHOS 46 48 49 AST 11 10 12 ALT 4* 4* 4* TOTPROT 6.6 6.5 6.6 TOTBILI 0.4 0.4 0.4 ALBUMIN 3.4* 3.4* 3.5 Recent Labs 07/04/1860207/05/18 0552 07/06/18 041 HGB 9.6* 10.2* 9.4* HCT 28.7* 29.7* 27.8* WBC 8.1 8.2 8.3 PLTCT 385 374 383 No results for input(s): PHART, PCO2A, PO2ART, HCO3A, [id number] in the last 72 hours. * Debi Zhao, RN - 07/06/2018 6:58 AM CDT Shift: Night Mentation: A&Ox4. Cardiac: S1S2. Respiratory: RA. GI/: L&R nephrostomy tubes. Yellow, clear on L; pink on R. Last 07/04. Nutrition: Low sodium diet. 2L fluid restriction. Activity: Independent. Pain: C/o headache this shift. Relief with PRN medication. Follow up: Continue to monitor patient and notify physician of any changes. * Norma Medina, ELADIO - 07/05/2018 4:14 PM CDT Shift: Day Mentation: Alert and oriented x4 Cardiac: S1, S2 Respiratory: RA, non-labored GI/: voids, 07/04 Nutrition: low sodium 2L fluid restriction Activity: up ad payton Pain: no complaints Family: not at bedside Hygiene: self care with staff assist as needed Follow up: care plan on-going * Marisol Arias MD - 07/05/2018 2:28 PM CDT Formatting of this note may be different from the original. Renal Progress Note Name: Aracelis Espinal Today's Date: 07/05/2018 Admission Date: 07/01/2018 LOS: 4 days Assessment and Plan Active Problems: Obstructive uropathy Bilateral leg edema Aracelis Espinal is a 67 y.o. female from obstruction and lower extremity edema 1. MEE - from obstruction - improving - now with bilateral nephrostomy tubes - did require HD in early June off HD now - has TDC 2. Lower extremity edema - no IVC obstruction 3. Bilateral hydronephrosis - with failed ureter stents now with bilateral PCN 4. Anemia 5. RLE thrombus Recommendations - renal function stable - have good response to IV 40mg lasix continue that for now Patient discussed with primary team Marisol Arias MD Pager [phone] Subjective Aracelis Espinal is a 67 y.o. female no acute events overnight. She feels her edema is improving. She denies any chest pain,nausea, vomiting, diarrhea or problems breathing Medications Medications MEDS apixaban 5 mg Oral BID furosemide 40 mg Intravenous QDAY levothyroxine 50 mcg Oral QDAY() nicotine 1 patch Transdermal Q24H* pantoprazole DR 40 mg Oral QDAY() senna/docusate 1 tablet Oral BID IV MEDS Prn acetaminophen Q6H PRN 650 mg at 07/05/18 1327, HYDROcodone/ acetaminophen Q6H PRN 1 tablet at 07/04/182000 Physical Exam Vital Signs: Last Filed In 24 Hours Vital Signs: 24 Hour Range BP: 111/72 (07/05 1125) Temp: 36.8 C (98.3 F) (07/05 112) Pulse: 87 (07/05 1125) Respirations: 16 PER MINUTE (07/05 1125) SpO2: 92 % (07/05 1125) O2 Delivery: None (Room Air) (07/05 1125) BP: (90-117)/(55-72) Temp: [36.7 C (98 F)-37.2 C (98.9 F)] Pulse: [60-90] Respirations: [16 PER MINUTE-18 PER MINUTE] SpO2: [92 %-100 %] O2 Delivery: None (Room Air) Intensity Pain Scale 0-10 (Pain 1): 7 (07/04/182004) Intake/Output Summary (Last 24 hours) at 07/05/18 1428 Last data filed at 07/05/18 1300 Gross per 24 hour Intake 260 ml Output 3900 ml Net -3640 ml Vitals: 07/01/18 1223 07/01/18 2100 07/02/18 0909 Weight: 83.9 kg (185 lb) 85.1 kg (187 lb 9.8 oz) 85 kg (187 lb 6.3 oz) Gen: Alert and Oriented, No Acute Distress HEENT: Sclera normal; MMM CV: S1 and S2 normal, no rubs, murmurs or gallops Pulm: Clear to Auscultation bilateral GI: BS+ x4, non-tender to palpation Neuro: Grossly normal, moving all extremities, speech intact Ext: 3+ edema, no clubbing or cyanosis Skin: no rash Labs: Recent Labs 07/03/18 0643 07/04/18 0603 07/05/18 0552 NA 138 132* 135* K 4.5 4.1 3.8 CL 103 99 100 CO2 27 27 27 GAP 8 6 8 BUN 33* 37* 33* CR 1.55* 1.58* 1.47* GLU 95 106* 110* CA 9.3 9.3 9.3 ALBUMIN 3.3* 3.4* 3.4* Recent Labs 07/03/18 0643 07/04/18 0603 07/05/18 0552 WBC 7.3 8.1 8.2 HGB 9.1* 9.6* 10.2* HCT 28.0* 28.7* 29.7* PLTCT 379 385 374 AST 10 11 10 ALT 6* 4* 4* ALKPHOS 50 46 48 Estimated Creatinine Clearance: 40.2 mL/min (A) (based on SCr of 1.47 mg/dL (H)) . Vitals: 07/01/18 1223 07/01/18 2100 07/02/18 0909 Weight: 83.9 kg (185 lb) 85.1 kg (187 lb 9.8 oz) 85 kg (187 lb 6.3 oz) No results for input(s): PHART, PO2ART in the last 72 hours. Invalid input(s): PC02A * Vanessa Castro, LAUNDRY SUPERVISOR - 07/05/2018 10:41 AM CDT PHYSICAL THERAPY PROGRESS NOTE MOBILITY: Mobility Progressive Mobility Level: Walk laps Distance Walked (feet): 400 ft Level of Assistance: Independent Assistive Device: None Time Tolerated: 11-30 minutes Activity Limited By: Fatigue SUBJECTIVE: Subjective Significant hospital events: 67 y.o. F with history of anxiety, depression, HLD with recent prolonged admission to [facility] in [place] for acute renal failure. She was found to have bilateral hydronephrosis for which ureteral stents placed in addition to L nephrostomy tube placement. Briefly required dialysis during that admission however Cr had improved so this was not continued at time of discharge. Patient presented to urology f/u 07/01 and was c/ o exertional dyspnea and progressive BLE edema for which she was instructed to go to the ED. Mental / Cognitive Status: Alert;Oriented;Cooperative Pain: Patient complains of pain;Patient does not rate pain Pain Location: (bilateral nephrostomy sites) Pain Interventions: Patient agrees to participate in therapy;Patient declines pain meds Comments: Pt was in bed and eager to walk. She is on standard fall precautions. Pt reported the edema in her legs is slightly less. Comments: bilateral nephrostomy tubes. Ambulation Assist: Independent Mobility in Community without Device Patient Owned Equipment: None Home Situation: Lives Alone;Receives Assistance from Family Type of Home: House Entry Stairs: 3-5 Stairs;Rail on 1 Side (3) In-Home Stairs: Able to Live on One Level BED MOBILITY/TRANSFERS: Bed Mobility/Transfers Bed Mobility: Supine to Sit: Modified Independent;Head of Bed Elevated Bed Mobility: Sit to Supine: Modified Independent;HOB Elevated Transfer Type: Sit to/from Stand Transfer: Assistance Level: To/From;Bed;Modified Independent Transfer: Assistive Device: None Transfers: Type Of Assistance: For Safety Considerations End Of Activity Status: Sitting at Edge of Bed (physician and nurse present) Comments: Pt is on standard fall precautions GAIT: Gait Gait Distance: 400 feet Gait: Assistance Level: Modified Independent Gait: Assistive Device: None Gait: Descriptors: Pace: Slow;No balance loss Activity Limited By: Complaint of Fatigue Comments: Pt stated this was the first time she has been able to walk in 2 days due to procedures EDUCATION: Education Comments: Encouraged pt to walk on own or with nursing/family again today and with nursing ASSESSMENT/PROGRESS: Assessment/Progress Comments: Pt is safe with ambulation and anticipate pt to be close to baseline AM-PAC 6 Clicks Basic Mobility Inpatient Turning from your back to your side while in a flat bed without using bed rails : None Moving from lying on your back to sitting on the side of a flatbed without using bedrails : A Little Moving to and from a bed to a chair (including a wheelchair): None Standing up from a chair using your arms (e.g. wheelchair, or bedside chair): None To walk in hospital room: None Climbing 3-5 steps with a railing: A Little Raw Score: 22 Standardized (T-scale) Score: 47.4 Basic Mobility CMS 0-100%: 25.02 CMS G Code Modifier for Basic Mobility: CJ GOALS: Goals Goal Formulation: With Patient Time For Goal Achievement: 3 days, To, 5 days Pt Will Go Supine To/From Sit: Independently, Met Pt Will Transfer Bed/Chair: Independently, Met Pt Will Transfer Sit to Stand: Independently, Met Pt Will Ambulate: Greater than 200 Feet, w/ No Device, Independently, Met Pt Will Go Up / Down Stairs: 3-5 Stairs, Independently PLAN: Plan Treatment Interventions: Mobility Training Plan Frequency: 3-5 Days per Week PT Plan for Next Visit: *one more time for stairs RECOMMENDATIONS: PT Discharge Recommendations PT Discharge Recommendations: Home with Assistance;and;Home Health Setting Equipment Recommendations: None Recommend ongoing assistance for: Stairs Therapist: Vanessa Castro, Physical therapist library clerical assistant Date: 07/05/2018 * Debi Zhao RN - 07/05/2018 7:34 AM CDT Shift: Night Mentation: A&Ox4. Cardiac: S1S2. Respiratory: RA GI/: R&L Nephrostomy tubes. Patient reported voiding this shift. Hat placed in toilet to accurately measure I&Os. Nutrition: Low sodium diet. 2L FR. Activity: Standby assist. Pain: C/o abdominal pain. Controlled with PRN medication. Follow up: Continue to monitor patient and notify physician of any changes. * Estela Ghosh DO - 07/05/2018 7:29 AM CDT Formatting of this note may be different from the original. General Progress Note Name: Aracelis Espinal Today's Date: 07/05/2018 Admission Date: 07/01/2018 LOS: 4 days Assessment/Plan: Active Problems: Obstructive uropathy Bilateral leg edema Ms Espinal is a 67 y.o. F with history of anxiety, depression, HLD with recent prolonged admission to [facility] in [place] for acute renal failure. She was found to have bilateral hydronephrosis for which ureteral stents placed in addition to L nephrostomy tube placement. Briefly required dialysis during that admission however Cr had improved so this was not continued at time of discharge. Patient presented to urology f/u 07/01 and was c/o exertional dyspnea and progressive BLE edema for which she was instructed to go to the ED. Bilateral hydronephrosis MEE - resolving Pyuria - likely from recent ureteral instrumentation - Patient was found to have acute renal failure by PCP and sent to [facility], was admitted for about 3 weeks. Cr had peaked around 9. Bilateral ureteral stents and L nephrostomy tube placed with improvement in Cr. Briefly required dialysis however this was not continued at discharge as Cr improved to 1.6. - Etiology of obstruction unclear, per patient was found to have posterior bladder wall thickening however CT a/p here only showed collapsed bladder - Urology recommended R nephrostomy tube placement which was performed in IR on 07/02 - UA on admission with pyuria and started on ertapenem due to recent ureteral stent placement Plan > Urology consulted, ureteral stent removed 07/03, bedside cystoscopy with no evidence obvious tumor or stones, f/u scheduled for 07/29 > Discussed with Dr Arias, concern for possible compression of IVC. 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 CT with contrast would unlikely add diagnostic information, suggest IR evaluation for venogram and if compression found intervention with stenting. Venogram showed patent IVC with no evidence of treatable stenosis. > Continue 40IV lasix daily > Urine culture negative, pyuria likely due to recent ureteral instrumentation. DCd ertapenem 07/02 JASSO BLE edema - Echo showed EF 60%, no diastolic dysfunction. TSH wnl. BNP 71. IVC patent, no proteinuria - Unclear etiology of edema - Managment of MEE/hydronephrosis as above. Discussed with renal, started IV lasix 40mg daily Occlusive subacute RLE thrombus - BLE venous doppler showed occlusive subacute thrombus in one of the duplicated R popliteal veins - LE doppler at OSH was negative for DVT - Recent L nephrostomy tube placement complicated by subcapsular hematoma requiring PRBC and platelet transfusion so anticoagulation was held - Now s/p R nephrostomy tube placement, would need to hold AC for at least 24 hours post procedure Plan > Discussed risks/benefits of anticoagulation again with patient. As bleeding from R nephrostomy tube improving she is willing to start AC. Started eliquis at 5mg BID (instead of 10mg BID for 7 days as patient is higher risk of bleeding ) Normocytic anemia - Iron studies c/w ACD FEN: No IVF, replace lytes PRN, low Na diet with 2L fluid restriction DVT ppx: Eliquis Code status: Full code Dispo: Continue inpatient care. Continue diuresis and monitor for signs of bleeding after starting AC, anticipate discharge Sunday/Sunday Subjective No acute events overnight. Patient continues to express frustration that she will be discharged home with nephrostomy tubes. Discussed plan with patient and sister over the telephone. They are in agreement to start anticoagulation and with plan to f/u with urology as outpatient to further discuss options going forward. She denies fever, chills, n/v/d/abd pain, dyspnea. She is tolerating PO intake. Medications Scheduled Meds: furosemide (LASIX) injection 40 mg 40 mg Intravenous QDAY levothyroxine (SYNTHROID) tablet 50 mcg 50 mcg Oral QDAY(07) nicotine (NICODERM CQ STEP 1) 21 mg/day patch 1 patch 1 patch Transdermal Q24H* pantoprazole DR (PROTONIX) tablet 40 mg 40 mg Oral QDAY(21) senna/docusate (SENOKOT-S) tablet 1 tablet 1 tablet Oral BID sodium chloride 0.9 % infusion 500 mL Intravenous ONCE Continuous Infusions: PRN and Respiratory Meds:acetaminophen Q6H PRN, HYDROcodone/acetaminophen Q6H PRN Review of Systems: All other systems reviewed and are negative. Objective: Vital Signs: Last Filed Vital Signs: 24 Hour Range BP: 115/63 (07/05 444) Temp: 36.7 C (98 F) (07/05 444) Pulse: 76 (07/05 444) Respirations: 16 PER MINUTE (07/05 444) SpO2: 97 % (07/05 444) O2 Delivery: None (Room Air) (07/05 444) SpO2 Pulse: 76 (07/04 1000) BP: (90-121)/(55-79) Temp: [36.5 C (97.7 F)-37.2 C (98.9 F)] Pulse: [60-90] Respirations: [9 PER MINUTE-32 PER MINUTE] SpO2: [94 %-100 %] O2 Delivery: None (Room Air) Intensity Pain Scale 0-10 (Pain 1): 7 (07/04/182004) Vitals: 07/01/18 1223 07/01/18 2100 07/02/18 0909 Weight: 83.9 kg (185 lb) 85.1 kg (187 lb 9.8 oz) 85 kg (187 lb 6.3 oz) Intake/Output Summary: (Last 24 hours) Intake/Output Summary (Last 24 hours) at 07/05/18 0729 Last data filed at 07/05/18 0350 Gross per 24 hour Intake 600 ml Output 3250 ml Net -2650 ml Stool Occurrence: 0 Physical Exam General appearance: alert, cooperative and no distress Head: Normocephalic, without obvious abnormality, atraumatic Eyes: conjunctivae/corneas clear. EOM's intact. Neck: no JVD Lungs: clear to auscultation bilaterally Heart: regular rate and rhythm, S1, S2 normal, no murmur, click, rub or gallop Back: Bilateral nephrostomy tubes in place. Abdomen: soft, non-tender. Bowel sounds normal. Extremities: 1+ BLE edema Neurologic: No focal deficit Peripheral pulses: 2+ and symmetric Skin: Skin color, texture, turgor normal. No rashes or lesions Psych: Normal Lab Review 24-hour labs: Results for orders placed or performed during the hospital encounter of (from the past 24 hour(s)) CBC AND DIFF Collection Time: 07/05/18 5:52 AM Result Value Ref Range White Blood Cells 8.2 4.5 - 11.0 K/UL RBC 3.46 (L) 4.0 - 5.0 M/UL Hemoglobin 10.2 (L) 12.0 - 15.0 GM/DL Hematocrit 29.7 (L) 36 - 45 % MCV 85.7 80 - 100 FL MCH 29.5 26 - 34 PG MCHC 34.4 32.0 - 36.0 G/DL RDW 15.6 (H) 11 - 15 % Platelet Count 374 150 - 400 K/UL MPV 6.8 (L) 7 - 11 FL Neutrophils 69 41 - 77 % Lymphocytes 19 (L) 24 - 44 % Monocytes 8 4 - 12 % Eosinophils 3 0 - 5 % Basophils 1 0 - 2 % Absolute Neutrophil Count 5.70 1.8 - 7.0 K/UL Absolute Lymph Count 1.60 1.0 - 4.8 K/UL Absolute Monocyte Count 0.70 0 - 0.80 K/UL Absolute Eosinophil Count 0.20 0 - 0.45 K/UL Absolute Basophil Count 0.10 0 - 0.20 K/UL COMPREHENSIVE METABOLIC PANEL Collection Time: 07/05/18 5:52 AM Result Value Ref Range Sodium 135 (L) 137 - 147 MMOL/L Potassium 3.8 3.5 - 5.1 MMOL/L Chloride 100 98 - 110 MMOL/L Glucose 110 (H) 70 - 100 MG/DL Blood Urea Nitrogen 33 (H) 7 - 25 MG/DL Creatinine 1.47 (H) 0.4 - 1.00 MG/DL Calcium 9.3 8.5 - 10.6 MG/DL Total Protein 6.5 6.0 - 8.0 G/DL Total Bilirubin 0.4 0.3 - 1.2 MG/DL Albumin 3.4 (L) 3.5 - 5.0 G/DL Alk Phosphatase 48 25 - 110 U/L AST (SGOT) 10 7 - 40 U/L CO2 27 21 - 30 MMOL/L ALT (SGPT) 4 (L) 7 - 56 U/L Anion Gap 8 3 - 12 eGFR Non 36 (L) >60 mL/min eGFR 43 (L) >60 mL/min Point of Care Testing (Last 24 hours) Glucose: (!) 110 (07/05/18 0552) Radiology and other Diagnostics Review: Pertinent radiology reviewed. DO Arthur Booth [id number] * Marisol Arias MD - 07/04/2018 2:11 PM CDT Formatting of this note may be different from the original. Renal Progress Note Name: Aracelis Espinal Today's Date: 07/04/2018 Admission Date: 07/01/2018 LOS: 3 days Assessment and Plan Active Problems: Obstructive uropathy Bilateral leg edema Aracelis Espinal is a 67 y.o. female from obstruction and lower extremity edema 1. MEE - from obstruction - improving - now with bilateral nephrostomy tubes - did require HD in early June off HD now - has TDC 2. Lower extremity edema 3. Bilateral hydronephrosis - with failed ureter stents now with PCN 4. Anemia Recommendations - renal functions table - would start IV lasix 40mg IV daily to assist with diuresis she is having good response with that dose - venogram today showed no IVC compression; given her normal echo and no proteinuria still do not have good cause for her excessive LE edema. No mass on CT seen causing lymph obstruction will continue with diuresis - would hold on any further studies that need IV contrast given she got contrast load today for venogram - OK to remove tunneled HD catheter Patient discussed with primary team Marisol Arias MD Pager [phone] Subjective Aracelis Espinal is a 67 y.o. female no acute events overnight. She feels her edema is improving. She denies any chest pain,nausea, vomiting, diarrhea or problems breathing Medications Medications MEDS furosemide 40 mg Intravenous QDAY levothyroxine 50 mcg Oral QDAY(07) nicotine 1 patch Transdermal Q24H* pantoprazole DR 40 mg Oral QDAY(21) senna/docusate 1 tablet Oral BID sodium chloride 0.9% (NS) 500 mL Intravenous ONCE IV MEDS Prn acetaminophen Q6H PRN 650 mg at 07/03/18 2057, HYDROcodone/ acetaminophen Q6H PRN 1 tablet at 07/04/18 0950 Physical Exam Vital Signs: Last Filed In 24 Hours Vital Signs: 24 Hour Range BP: 113/71 (07/04 1106) Temp: 36.5 C (97.7 F) (07/04 1106) Pulse: 84 (07/04 1106) Respirations: 14 PER MINUTE (07/04 1106) SpO2: 99 % (07/04 1106) O2 Delivery: None (Room Air) (07/04 1106) SpO2 Pulse: 76 (07/04 1000) BP: (101-121)/(49-79) Temp: [36.5 C (97.7 F)-36.9 C (98.4 F)] Pulse: [77-97] Respirations: [9 PER MINUTE-32 PER MINUTE] SpO2: [95 %-100 %] O2 Delivery: None (Room Air) Intensity Pain Scale 0-10 (Pain 1): 0 (07/04/18 0000) Intake/Output Summary (Last 24 hours) at 07/04/18 1411 Last data filed at 07/04/18 1130 Gross per 24 hour Intake 300 ml Output 2675 ml Net -2375 ml Vitals: 07/01/18 1223 07/01/18 2100 07/02/18 0909 Weight: 83.9 kg (185 lb) 85.1 kg (187 lb 9.8 oz) 85 kg (187 lb 6.3 oz) Gen: Alert and Oriented, No Acute Distress HEENT: Sclera normal; MMM CV: S1 and S2 normal, no rubs, murmurs or gallops Pulm: Clear to Auscultation bilateral GI: BS+ x4, non-tender to palpation Neuro: Grossly normal, moving all extremities, speech intact Ext: 3+ edema, no clubbing or cyanosis Skin: no rash Labs: Recent Labs 07/02/1861707/03/18 0643 07/04/18 0603 NA 135* 138 132* K 4.7 4.5 4.1 CL 105 103 99 CO2 24 27 27 GAP 6 8 6 BUN 34* 33* 37* CR 1.58* 1.55* 1.58* GLU 94 95 106* CA 9.3 9.3 9.3 ALBUMIN 3.4* 3.3* 3.4* MG 2.0 -- -- PO4 4.9* -- -- TSH 2.360 -- -- Recent Labs 07/02/1861707/03/18 0643 07/04/18 0603 WBC 7.9 7.3 8.1 HGB 8.9* 9.1* 9.6* HCT 27.3* 28.0* 28.7* PLTCT 378 379 385 AST 12 10 11 ALT 4* 6* 4* ALKPHOS 47 50 46 Estimated Creatinine Clearance: 37.4 mL/min (A) (based on SCr of 1.58 mg/dL (H)) . Vitals: 07/01/18 1223 07/01/18 2100 07/02/18 0909 Weight: 83.9 kg (185 lb) 85.1 kg (187 lb 9.8 oz) 85 kg (187 lb 6.3 oz) No results for input(s): PHART, PO2ART in the last 72 hours. Invalid input(s): PC02A * Estela Ghosh, - 07/04/2018 8:05 AM CDT Formatting of this note may be different from the original. General Progress Note Name: Aracelis Espinal Today's Date: 07/04/2018 Admission Date: 07/01/2018 LOS: 3 days Assessment/Plan: Active Problems: Obstructive uropathy Bilateral leg edema Ms Espinal is a 67 y.o. F with history of anxiety, depression, HLD with recent prolonged admission to [facility] in [place] for acute renal failure. She was found to have bilateral hydronephrosis for which ureteral stents placed in addition to L nephrostomy tube placement. Briefly required dialysis during that admission however Cr had improved so this was not continued at time of discharge. Patient presented to urology f/u 07/01 and was c/o exertional dyspnea and progressive BLE edema for which she was instructed to go to the ED. Bilateral hydronephrosis MEE - resolving Pyuria - likely from recent ureteral instrumentation - Patient was found to have acute renal failure by PCP and sent to [facility], was admitted for about 3 weeks. Cr had peaked around 9. Bilateral ureteral stents and L nephrostomy tube placed with improvement in Cr. Briefly required dialysis however this was not continued at discharge as Cr improved to 1.6. - Etiology of obstruction unclear, per patient was found to have posterior bladder wall thickening however CT a/p here only showed collapsed bladder - Urology recommended R nephrostomy tube placement which was performed in IR on 07/02 - UA on admission with pyuria and started on ertapenem due to recent ureteral stent placement Plan > Urology consulted, ureteral stent removed 07/03, bedside cystoscopy with no evidence obvious tumor or stones, f/u scheduled for 07/29 > Discussed with Dr Arias, concern for possible compression of IVC. 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 CT with contrast would unlikely add diagnostic information, suggest IR evaluation for venogram and if compression found intervention with stenting. Venogram showed patent IVC with no evidence of treatable stenosis. Will start 40IV lasix daily > Urine culture negative, pyuria likely due to recent ureteral instrumentation. DCd ertapenem 07/02 JASSO BLE edema - Echo showed EF 60%, no diastolic dysfunction. TSH wnl. BNP 71. IVC patent, so proteinuria - Unclear etiology of edema - Managment of MEE/hydronephrosis as above. Discussed with renal, started iV lasix 40mg daily Occlusive subacute RLE thrombus - BLE venous doppler showed occlusive subacute thrombus in one of the duplicated R popliteal veins - LE doppler at OSH was negative for DVT - Recent L nephrostomy tube placement complicated by subcapsular hematoma requiring PRBC and platelet transfusion so anticoagulation was held - Now s/p R nephrostomy tube placement, would need to hold AC for at least 24 hours post procedure Plan > Discussed with patient risks/benefits regarding AC including risk of bleeding vs possible PE/. Patient is at high risk of bleeding from recent nephrostomy tube placement and recent subcapsular hematoma. Would favor holding off anticoagulation for now and repeat doppler in 1 week, she will f/u with her PCP for this Normocytic anemia - Iron studies c/w ACD FEN: No IVF, replace lytes PRN, low Na diet with 2L fluid restriction DVT ppx: SCDs only due to recent subcapsular hemorrhage Code status: Full code Dispo: Continue inpatient care Subjective No acute events overnight. Patient is very frustrated that we cannot figure out what is wrong with her plumbing and why she has swelling. She just wants to be able to live a normal life without nephrostomy tubes, listened to patient's concerns and provided support. She denies fever, chills, n/v/d/abd pain, dyspnea. She is tolerating PO intake. Medications Scheduled Meds: fentaNYL citrate PF (SUBLIMAZE) injection 50 mcg 50 mcg Intravenous ONCE [Jan] furosemide (LASIX) tablet 40 mg 40 mg Oral QAM8 [JAN Hold] levothyroxine (SYNTHROID) tablet 50 mcg 50 mcg Oral QDAY(07) midazolam (VERSED) injection 1 mg 1 mg Intravenous ONCE [JAN Hold] nicotine (NICODERM CQ STEP 1) 21 mg/day patch 1 patch 1 patch Transdermal Q24H* [JAN Hold] pantoprazole DR (PROTONIX) tablet 40 mg 40 mg Oral QDAY(21) [Jan] senna/docusate (SENOKOT-S) tablet 1 tablet 1 tablet Oral BID sodium chloride 0.9 % infusion 500 mL Intravenous ONCE sodium chloride 0.9 % infusion 500 mL Intravenous ONCE Continuous Infusions: PRN and Respiratory Meds:[Jan] acetaminophen Q6H PRN, [JAN Hold] HYDROcodone/acetaminophen Q6H PRN Review of Systems: All other systems reviewed and are negative. Objective: Vital Signs: Last Filed Vital Signs: 24 Hour Range BP: 102/63 (07/04 731) Temp: 36.9 C (98.4 F) (07/04 731) Pulse: 77 (07/04 731) Respirations: 9 PER MINUTE (07/04 731) SpO2: 95 % (07/03 2347) O2 Delivery: None (Room Air) (07/04 731) BP: (102-121)/(49-64) Temp: [36.5 C (97.7 F)-36.9 C (98.4 F)] Pulse: [77-97] Respirations: [9 PER MINUTE-18 PER MINUTE] SpO2: [95 %-99 %] O2 Delivery: None (Room Air) Intensity Pain Scale 0-10 (Pain 1): 0 (07/04/18 0000) Vitals: 07/01/18 1223 07/01/18 2100 07/02/18 0909 Weight: 83.9 kg (185 lb) 85.1 kg (187 lb 9.8 oz) 85 kg (187 lb 6.3 oz) Intake/Output Summary: (Last 24 hours) Intake/Output Summary (Last 24 hours) at 07/04/18 0805 Last data filed at 07/04/18 0400 Gross per 24 hour Intake 300 ml Output 3075 ml Net -2775 ml Stool Occurrence: 1 Physical Exam General appearance: alert, cooperative and no distress Head: Normocephalic, without obvious abnormality, atraumatic Eyes: conjunctivae/corneas clear. EOM's intact. Neck: no JVD Lungs: clear to auscultation bilaterally Heart: regular rate and rhythm, S1, S2 normal, no murmur, click, rub or gallop Back: Bilateral nephrostomy tubes in place. Right nephrostomy tube with hematuria Abdomen: soft, non-tender. Bowel sounds normal. Extremities: 2+ BLE edema Neurologic: No focal deficit Peripheral pulses: 2+ and symmetric Skin: Skin color, texture, turgor normal. No rashes or lesions Psych: Normal Lab Review 24-hour labs: Results for orders placed or performed during the hospital encounter of (from the past 24 hour(s)) PROTEIN/CR RATIO,UR RAN Collection Time: 07/03/18 2:00 PM Result Value Ref Range Protein, Random 10 MG/DL Creatinine, Random 32 MG/DL Protein/CR ratio 0.3 CBC AND DIFF Collection Time: 07/04/18 6:03 AM Result Value Ref Range White Blood Cells 8.1 4.5 - 11.0 K/UL RBC 3.28 (L) 4.0 - 5.0 M/UL Hemoglobin 9.6 (L) 12.0 - 15.0 GM/DL Hematocrit 28.7 (L) 36 - 45 % MCV 87.4 80 - 100 FL MCH 29.3 26 - 34 PG MCHC 33.5 32.0 - 36.0 G/DL RDW 16.0 (H) 11 - 15 % Platelet Count 385 150 - 400 K/UL MPV 7.0 7 - 11 FL Neutrophils 69 41 - 77 % Lymphocytes 19 (L) 24 - 44 % Monocytes 9 4 - 12 % Eosinophils 3 0 - 5 % Basophils 0 0 - 2 % Absolute Neutrophil Count 5.60 1.8 - 7.0 K/UL Absolute Lymph Count 1.50 1.0 - 4.8 K/UL Absolute Monocyte Count 0.70 0 - 0.80 K/UL Absolute Eosinophil Count 0.20 0 - 0.45 K/UL Absolute Basophil Count 0.00 0 - 0.20 K/UL COMPREHENSIVE METABOLIC PANEL Collection Time: 07/04/18 6:03 AM Result Value Ref Range Sodium 132 (L) 137 - 147 MMOL/L Potassium 4.1 3.5 - 5.1 MMOL/L Chloride 99 98 - 110 MMOL/L Glucose 106 (H) 70 - 100 MG/DL Blood Urea Nitrogen 37 (H) 7 - 25 MG/DL Creatinine 1.58 (H) 0.4 - 1.00 MG/DL Calcium 9.3 8.5 - 10.6 MG/DL Total Protein 6.6 6.0 - 8.0 G/DL Total Bilirubin 0.4 0.3 - 1.2 MG/DL Albumin 3.4 (L) 3.5 - 5.0 G/DL Alk Phosphatase 46 25 - 110 U/L AST (SGOT) 11 7 - 40 U/L CO2 27 21 - 30 MMOL/L ALT (SGPT) 4 (L) 7 - 56 U/L Anion Gap 6 3 - 12 eGFR Non 33 (L) >60 mL/min eGFR 40 (L) >60 mL/min Point of Care Testing (Last 24 hours) Glucose: (!) 106 (07/04/18 0603) Radiology and other Diagnostics Review: Pertinent radiology reviewed. Estela Ghosh DO Pager [phone] * Marbella Espana RN - 07/04/2018 5:25 AM CDT Shift: Night Mentation: A/O x4 Cardiac: S1, S2, regular rhythm Respiratory: RA, non-labored GI/: voids, last BM: 07/02 Nutrition: went NPO at NH Activity: SBA Pain: no c/o pain Family: no family present Follow up: Plan of care is on going * Paris Rea - 07/03/2018 4:33 PM CDT Reason for Visit: Gastroenterology Nurse Rounds Marlen/Jehovah'S Witness: Unknown Encounter: Patient stated she didn't really need a visit from the Gastroenterology Nurse, she just needed to get her "plumbing fixed." Patient stated she was receiving good care, but was more that ready to be on her way to a resolution to her health issues. Gastroenterology Nurse stated she hoped she had resolution very soon, and took her leave. The spiritual care team is available as needed, 04/06, through the campus switchboard ([phone]). For immediate response, please page [phone]. For a response within 24 hours, please submit an order in O2 for a teenage program director consult or call the administrative voicemail at [phone]. * Marci Cha RN - 07/03/2018 2:59 PM CDT IR Progress Note Venogram discussed with Dr. Karimi. BLE edema, concern for possible IVC/iliac vein compression. Team okay with 8/23 AM. Labs, meds, allergies okay. Marci Cha RN BSN * Marisol Arias MD - 07/03/2018 2:02 PM CDT Formatting of this note may be different from the original. Renal Progress Note Name: Aracelis Espinal Today's Date: 07/03/2018 Admission Date: 07/01/2018 LOS: 2 days Assessment and Plan Active Problems: Obstructive uropathy Bilateral leg edema Aracelis Espinal is a 67 y.o. female from obstruction and lower extremity edema 1. MEE - from obstruction - improving - now with bilateral nephrostomy tubes - did require HD in early June off HD now - has TDC 2. Lower extremity edema 3. Bilateral hydronephrosis - with failed ureter stents now with PCN 4. Anemia Recommendations - renal functions table - had good response to lasix yesterday would repeat 40mg IV today - needs further investigation as to what cause compression of ureter as her echo is normal, will get pr/cr ratio but concern for lymph vs. IVC compression as cause of her lower extremity edema Patient discussed with primary team Marisol Arias MD Pager [phone] Subjective Aracelis Espinal is a 67 y.o. female no acute events overnight. She had good response to lasix yesterday. She denies any chest pain,nausea, vomiting, diarrhea or problems breathing Medications Medications MEDS furosemide 40 mg Oral QAM8 levothyroxine 50 mcg Oral QDAY(07) nicotine 1 patch Transdermal Q24H* pantoprazole DR 40 mg Oral QDAY() senna/docusate 1 tablet Oral BID IV MEDS Prn acetaminophen Q6H PRN 650 mg at 07/02/18 1434, HYDROcodone/ acetaminophen Q6H PRN 1 tablet at 07/03/18 0839 Physical Exam Vital Signs: Last Filed In 24 Hours Vital Signs: 24 Hour Range BP: 114/63 (07/03 0751) Temp: 36.7 C (98.1 F) (07/03 751) Pulse: 72 (07/03 751) Respirations: 18 PER MINUTE (07/03 751) SpO2: 100 % (07/03 751) O2 Delivery: None (Room Air) (07/03 751) BP: (110-136)/(57-74) Temp: [36.7 C (98 F)-36.8 C (98.3 F)] Pulse: [72-85] Respirations: [18 PER MINUTE-20 PER MINUTE] SpO2: [98 %-100 %] O2 Delivery: None (Room Air) Intensity Pain Scale 0-10 (Pain 1): 7 (07/03/18 0845) Intake/Output Summary (Last 24 hours) at 07/03/18 1402 Last data filed at 07/03/18 1232 Gross per 24 hour Intake 730 ml Output 4475 ml Net -3745 ml Vitals: 07/01/18 1223 07/01/18 2100 07/02/18 0909 Weight: 83.9 kg (185 lb) 85.1 kg (187 lb 9.8 oz) 85 kg (187 lb 6.3 oz) Gen: Alert and Oriented, No Acute Distress HEENT: Sclera normal; MMM CV: S1 and S2 normal, no rubs, murmurs or gallops Pulm: Clear to Auscultation bilateral GI: BS+ x4, non-tender to palpation Neuro: Grossly normal, moving all extremities, speech intact Ext: 3+ edema, no clubbing or cyanosis Skin: no rash Labs: Recent Labs 07/01/18 1335 07/02/18 0618 07/03/18 0643 NA 136* 135* 138 K 4.2 4.7 4.5 CL 103 105 103 CO2 24 24 27 GAP 9 6 8 BUN 32* 34* 33* CR 1.53* 1.58* 1.55* GLU 89 94 95 CA 9.6 9.3 9.3 ALBUMIN 3.8 3.4* 3.3* MG 2.0 2.0 -- PO4 -- 4.9* -- TSH -- 2.360 -- Recent Labs 07/01/18 1335 07/02/18 0618 07/03/18 0643 WBC 9.1 7.9 7.3 HGB 9.9* 8.9* 9.1* HCT 29.7* 27.3* 28.0* PLTCT 425* 378 379 AST 13 12 10 ALT <3* 4* 6* ALKPHOS 48 47 50 Estimated Creatinine Clearance: 38.2 mL/min (A) (based on SCr of 1.55 mg/dL (H)) . Vitals: 07/01/18 1223 07/01/18 2100 07/02/18 0909 Weight: 83.9 kg (185 lb) 85.1 kg (187 lb 9.8 oz) 85 kg (187 lb 6.3 oz) No results for input(s): PHART, PO2ART in the last 72 hours. Invalid input(s): PC02A * Harjit Wellington MD - 07/03/2018 12:10 PM CDT Formatting of this note may be different from the original. Urology Progress Note 07/03/2018 ASSESSMENT: Aracelis Espinal is a 67 y.o. Female with bilateral ureteral strictures POD#1 s/p , LOS: 2 days PLAN: will discuss plan with staff surgeon - Dr. Moseley - bilateral ureteral stents removed at bedside - bedside cystoscopy with no evidence of obvious tumor or stones. - okay for diet - she will see Dr. Moseley in follow up on SundayJul 29 at 8:15 - urology to sign off at this time. Harjit Wellington M.D. PGY-3 Please page urology operations support manager with questions SUBJECTIVE: Overnight events: No acute events. Pain controlled.NPO since last night. ambulating. OBJECTIVE: Vital Signs: Most Recent Vital Signs: Past 24 Hours BP: 114/63 (07/03 751) Temp: 36.7 C (98.1 F) (07/03 751) Pulse: 72 (07/03 751) Respirations: 18 PER MINUTE (07/03 751) SpO2: 100 % (08/22 0751) O2 Delivery: None (Room Air) (07/03 0751) BP: (110-145)/(57-85) Temp: [36.7 C (98 F)-36.8 C (98.3 F)] Pulse: [72-85] Respirations: [9 PER MINUTE-20 PER MINUTE] SpO2: [97 %-100 %] O2 Delivery: None (Room Air) Intake/Output Summary (Last 24 hours) at 07/03/18 1212 Last data filed at 07/03/18 0845 Gross per 24 hour Intake 730 ml Output 4025 ml Net -3295 ml General: alert, oriented, no acute distress. Pulm: non-labored, equal chest rise CV: regular rate and rhythm Abd: soft, non-distended Extremities: large amount of lower extremity edema bilaterally, SCD's in place : bilateral nephrostomy tubes. Left draining clear yellow. right with pink tinged urine. Labs: Hematology Chemistry Recent Labs 07/03/18 0643 WBC 7.3 HGB 9.1* PLTCT 379 Recent Labs 07/02/18 0618 07/03/18 0643 NA 135* 138 K 4.7 4.5 CL 105 103 CO2 24 27 BUN 34* 33* CR 1.58* 1.55* GFR 33* 34* GLU 94 95 CA 9.3 9.3 PO4 4.9* -- * Ramón Ruiz, PT - 07/03/2018 10:45 AM CDT PHYSICAL THERAPY ASSESSMENT MOBILITY: Mobility Progressive Mobility Level: Walk in hallway Distance Walked (feet): 250 ft Level of Assistance: Stand by assistance Assistive Device: None Time Tolerated: 11-30 minutes Activity Limited By: Lines / Medical Devices;Fatigue SUBJECTIVE: Subjective Significant hospital events: 67 y.o. F with history of anxiety, depression, HLD with recent prolonged admission to [facility] in [place] for acute renal failure. She was found to have bilateral hydronephrosis for which ureteral stents placed in addition to L nephrostomy tube placement. Briefly required dialysis during that admission however Cr had improved so this was not continued at time of discharge. Patient presented to urology f/u 07/01 and was c/ o exertional dyspnea and progressive BLE edema for which she was instructed to go to the ED. Mental / Cognitive Status: Alert;Oriented;Cooperative;Follows Commands Persons Present: (none) Pain: Patient complains of pain;Patient does not rate pain Pain Location: (R nephrostomy tube insertion site) Pain Description: Aching Pain Interventions: Patient agrees to participate in therapy;Treatment altered to patient's pain tolerance Comments: Bilateral nephrostomy tubes L LE Precautions: (bilateral LE edema) Ambulation Assist: Independent Mobility in Community without Device Patient Owned Equipment: None Home Situation: Lives Alone;Receives Assistance from Family Type of Home: House Entry Stairs: 3-5 Stairs;Rail on 1 Side (3) In-Home Stairs: Able to Live on One Level Comments: Patient endorses no recent falls and no mobility deficits prior to admission. She reports she has been in the hospital collectively for the past month both her and at OSH. ROM: ROM ROM Position Assessed: Seated ROM Method: Active LE ROM: Bilateral;Limited (Due to bilateral LE edema) STRENGTH: Strength Strength Position Assessed: Seated Overall Strength: WFL;No Focal Deficits Noted BED MOBILITY/TRANSFERS: Bed Mobility/Transfers Bed Mobility: Supine to Sit: Standby Assist;Head of Bed Elevated Bed Mobility: Sit to Supine: Standby Assist;HOB Elevated Transfer Type: Sit to Stand Transfer: Assistance Level: From;Bed;Standby Assist Transfer: Assistive Device: None Transfers: Type Of Assistance: For Safety Considerations Other Transfer Type: Stand to Sit Other Transfer: Assistance Level: To;Bed;Standby Assist Other Transfer: Assistive Device: None Other Transfer: Type Of Assistance: For Safety Considerations End Of Activity Status: In Bed;Nursing Notified;Instructed Patient to Request Assist with Mobility;Instructed Patient to Use Call Light BALANCE: Balance Sitting Balance: Static Sitting Balance;Dynamic Sitting Balance;No UE Support; Standby Assist;Uneven Surface Standing Balance: Static Standing Balance;Dynamic Standing Balance;No UE support ;Standby Assist;Even Surface GAIT: Gait Gait Distance: 250 feet Gait: Assistance Level: Standby Assist Gait: Assistive Device: None Gait: Descriptors: Normal step length;No balance loss Activity Limited By: Complaint of Fatigue Comments: Patient reports that she had just finished working with OT prior to PT arrival and politely declined further gait/upright activity at this time. EDUCATION: Education Persons Educated: Patient Patient Barriers To Learning: None Noted Interventions: Repetition of Instructions;Demonstration Provided Teaching Methods: Verbal Instruction;Demonstration Patient Response: Verbalized Understanding;Return Demonstration;More Instruction Required Topics: Plan/Goals of PT Interventions;Mobility Progression;Safety Awareness;Up with Assist Only;Importance of Increasing Activity;Ambulate With Nursing; Recommend Continued Therapy ASSESSMENT/PROGRESS: Assessment/Progress Impaired Mobility Due To: Decreased Activity Tolerance;Safety Concerns Assessment/Progress: Expect Good Progress AM-PAC 6 Clicks Basic Mobility Inpatient Turning from your back to your side while in a flat bed without using bed rails : None Moving from lying on your back to sitting on the side of a flatbed without using bedrails : None Moving to and from a bed to a chair (including a wheelchair): None Standing up from a chair using your arms (e.g. wheelchair, or bedside chair): None To walk in hospital room: A Little Climbing 3-5 steps with a railing: A Little Raw Score: 22 Standardized (T-scale) Score: 47.4 Basic Mobility CMS 0-100%: 25.02 CMS G Code Modifier for Basic Mobility: CJ G-Codes: Mobility G8978 Current Status: 20-39% Impairment G8979 Goal Status: 1-19% Impairment Based on above evaluation and clinical judgment. GOALS: Goals Goal Formulation: With Patient Time For Goal Achievement: 3 days, To, 5 days Pt Will Go Supine To/From Sit: Independently Pt Will Transfer Bed/Chair: Independently Pt Will Transfer Sit to Stand: Independently Pt Will Ambulate: Greater than 200 Feet, w/ No Device, Independently Pt Will Go Up / Down Stairs: 3-5 Stairs, Independently PLAN: Plan Treatment Interventions: Mobility Training Plan Frequency: 3-5 Days per Week PT Plan for Next Visit: Progress gait distance as able and trial stairs. Add to mobility aide next visit if appropriate. RECOMMENDATIONS: PT Discharge Recommendations PT Discharge Recommendations: Home with Assistance;and;Home Health Setting Equipment Recommendations: None Comments: Patient may benefit from home health PT post-hospital discharge if endurance/activity tolerance limitations continue. Continuing to assess and address. Therapist: Ramón Ruiz, PT, DPT Date: 07/03/2018 * Brittney Barajas, OT - 07/03/2018 9:36 AM CDT Formatting of this note may be different from the original. OCCUPATIONAL THERAPY ASSESSMENT and discharge NOTE Patient Name: Aracelis Glendon Room/Bed: [place] [address] Admitting Diagnosis: Obstructive uropathy Bilateral leg edema Past Medical History: Diagnosis Date Anemia Anxiety disorder Cataract Colon polyps Depression Dyslipidemia Thyroid disorder Ulcer of the stomach and intestine 67 y.o. F with history of anxiety, depression, HLD with recent prolonged admission to [facility] in [place] for acute renal failure. She was found to have bilateral hydronephrosis for which ureteral stents placed in addition to L nephrostomy tube placement. Briefly required dialysis during that admission however Cr had improved so this was not continued at time of discharge. Patient presented to urology f/u 07/01 and was c/o exertional dyspnea and progressive BLE edema for which she was instructed to go to the ED. Mobility Progressive Mobility Level: Walk in hallway Level of Assistance: Stand by assistance Assistive Device: None Time Tolerated: 11-30 minutes Activity Limited By: Lines / Medical Devices Subjective Patient Stated Goals: Home and return to work Precautions: (joshi catheter; 2 drains) L LE Precautions: (bilateral LE edema) Objective Psychosocial Status: Willing and Cooperative to Participate Persons Present: (none) Home Living Type of Home: House Home Layout: One Level Bathroom Shower / Tub: Walk-in Shower Bathroom Toilet: Standard Bathroom Equipment: Shower Chair Home Equipment: (none) Prior Function Level Of [place]: Independent with ADLs and functional transfers; Independent with homemaking w/ ambulation Lives With: Alone Receives Help From: Family;Friends (has supportive sister and nearby neighbors) 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 Vision Current Vision: (hx of cataract surgery; wears glasses for reading) ADL's Where Assessed: Edge of Bed;Supine, Bed (ambulating in room and hallway) UE Dressing Assist: (completes in seated and standing position) LE Dressing Assist: (Able to complete LE dressing at EOB with extra time) Functional Transfer Assist: Stand By Assist (for LEs in and out of bed; supine to sit; sit to stand) Comment: AMbulates unit with therapist with on break at half way around. No equip Cognition Overall Cognitive Status: WFL to Adequately Complete Self Care Tasks Safely UE AROM Comment: completes UE AROM with return demo and no c/o pain Edema Comment: significant LE edema bilaterally Education Persons Educated: Patient Teaching Methods: Verbal Instruction;Demonstration Topics: Role of OT, Goals for Therapy;DME for Home Discharge;Energy Conservation ;Home safety;ADL Compensatory Techniques Goal Formulation: With Patient Assessment No Skilled OT: No Acute OT Goals Identified (after review of compensatory strategies for home safety) AM-PAC 6 Clicks Daily Activity Inpatient Putting on and taking off regular lower body clothes?: None Bathing (Including washing, rinsing, drying): None Toileting, which includes using toilet, bedpan, or urinal: A Lot Putting on and taking off regular upper body clothing: None Taking care of personal grooming such as brushing teeth: None Eating meals?: None Daily Activity Raw Score: 22 Standardized (t-scale) score: 47.1 CMS 0-100% Score: 25.8 CMS G Code Modifier: CJ Plan OT Frequency: No Further Treatment G-Codes: Self-care G8987 Current Status: 20-39% Impairment G8988 Goal Status: 1-19% Impairment Based on above evaluation and clinical judgment. Asst recommended for nursing issues (catheter, care of drains) no OT needs identified. [place]: [place] [id number] Date: 07/03/2018 * Estela Ghosh DO - 07/03/2018 7:57 AM CDT Formatting of this note may be different from the original. General Progress Note Name: Aracelis Espinal Today's Date: 07/03/2018 Admission Date: 07/01/2018 LOS: 2 days Assessment/Plan: Active Problems: Obstructive uropathy Bilateral leg edema Ms Espinal is a 67 y.o. F with history of anxiety, depression, HLD with recent prolonged admission to [facility] in [place] for acute renal failure. She was found to have bilateral hydronephrosis for which ureteral stents placed in addition to L nephrostomy tube placement. Briefly required dialysis during that admission however Cr had improved so this was not continued at time of discharge. Patient presented to urology f/u 07/01 and was c/o exertional dyspnea and progressive BLE edema for which she was instructed to go to the ED. Bilateral hydronephrosis MEE - resolving Pyuria - likely from recent ureteral instrumentation - Patient was found to have acute renal failure by PCP and sent to [facility], was admitted for about 3 weeks. Cr had peaked around 9. Bilateral ureteral stents and L nephrostomy tube placed with improvement in Cr. Briefly required dialysis however this was not continued at discharge as Cr improved to 1.6. - Etiology of obstruction unclear, per patient was found to have posterior bladder wall thickening however CT a/p here only showed collapsed bladder - Urology recommended R nephrostomy tube placement which was performed in IR on 07/02 - UA on admission with pyuria and started on ertapenem due to recent ureteral stent placement Plan > Discussed with urology, ureteral stent removed 07/03, will arrange outpatient follow up > Renal following, appreciate recommendations. Will further diurese with additional dose of IV lasix today. 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 > Discussed with Dr Arias, concern for possible compression of IVC. 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 CT with contrast would unlikely add diagnostic information, suggest IR evaluation for venogram and if compression found intervention with stenting > Urine culture negative, pyuria likely due to recent ureteral instrumentation. DCd ertapenem 07/02 JASSO BLE edema - Likely due to renal failure - Echo showed EF 60%, no diastolic dysfunction. TSH wnl. BNP 71 - Managment of MEE/hydronephrosis as above Occlusive subacute RLE thrombus - BLE venous doppler showed occlusive subacute thrombus in one of the duplicated R popliteal veins - LE doppler at OSH was negative for DVT - Recent L nephrostomy tube placement complicated by subcapsular hematoma requiring PRBC and platelet transfusion so anticoagulation was held - Now s/p R nephrostomy tube placement, would need to hold AC for at least 24 hours post procedure Plan > Discussed with patient risks/benefits regarding AC including risk of bleeding vs possible PE/. Patient is at high risk of bleeding from recent nephrostomy tube placement and recent subcapsular hematoma. Would favor holding off anticoagulation for now and repeat doppler in 1 week, she will f/u with her PCP for this Normocytic anemia - Iron studies c/w ACD FEN: No IVF, replace lytes PRN, low Na diet with 2L fluid restriction DVT ppx: SCDs only due to recent subcapsular hemorrhage Code status: Full code Dispo: Continue inpatient care Subjective No acute events overnight. Patient states her pain is controlled. We discussed risk of bleeding if starting anticoagulation vs possible extension of clot/PE and even . She is at increased of bleeding due to recent procedures. She is in favor of holding off anticoagulation for now as she is more worried about bleeding and repeating the ultrasound in a week. She denies fever, chills, n/v/d, abd pain. Medications Scheduled Meds: furosemide (LASIX) tablet 40 mg 40 mg Oral QAM8 levothyroxine (SYNTHROID) tablet 50 mcg 50 mcg Oral QDAY(07) nicotine (NICODERM CQ STEP 1) 21 mg/day patch 1 patch 1 patch Transdermal Q24H* pantoprazole DR (PROTONIX) tablet 40 mg 40 mg Oral QDAY(21) senna/docusate (SENOKOT-S) tablet 1 tablet 1 tablet Oral BID Continuous Infusions: PRN and Respiratory Meds:acetaminophen Q6H PRN, HYDROcodone/acetaminophen Q6H PRN Review of Systems: All other systems reviewed and are negative. Objective: Vital Signs: Last Filed Vital Signs: 24 Hour Range BP: 114/63 (07/03 075) Temp: 36.7 C (98.1 F) (07/03 075) Pulse: 72 (07/03 075) Respirations: 18 PER MINUTE (07/03 075) SpO2: 100 % (07/03 075) O2 Delivery: None (Room Air) (07/03 075) SpO2 Pulse: 76 (07/02 1245) Height: 162.6 cm (64") (07/02 0909) BP: (101-145)/(56-85) Temp: [36.6 C (97.9 F)-36.9 C (98.4 F)] Pulse: [72-85] Respirations: [8 PER MINUTE-20 PER MINUTE] SpO2: [94 %-100 %] O2 Delivery: None (Room Air) Vitals: 07/01/18 1223 07/01/18 2100 07/02/18 0909 Weight: 83.9 kg (185 lb) 85.1 kg (187 lb 9.8 oz) 85 kg (187 lb 6.3 oz) Intake/Output Summary: (Last 24 hours) Intake/Output Summary (Last 24 hours) at 07/03/18 0757 Last data filed at 07/03/18 0400 Gross per 24 hour Intake 730 ml Output 3750 ml Net -3020 ml Stool Occurrence: 1 Physical Exam General appearance: alert, cooperative and no distress Head: Normocephalic, without obvious abnormality, atraumatic Eyes: conjunctivae/corneas clear. EOM's intact. Neck: no JVD Lungs: clear to auscultation bilaterally Heart: regular rate and rhythm, S1, S2 normal, no murmur, click, rub or gallop Back: Bilateral nephrostomy tubes in place. Right nephrostomy tube draining serosanguinous fluid Abdomen: soft, non-tender. Bowel sounds normal. Extremities: 2+ BLE edema Neurologic: No focal deficit Peripheral pulses: 2+ and symmetric Skin: Skin color, texture, turgor normal. No rashes or lesions Psych: Normal Lab Review 24-hour labs: Results for orders placed or performed during the hospital encounter of (from the past 24 hour(s)) CBC AND DIFF Collection Time: 07/03/18 6:43 AM Result Value Ref Range White Blood Cells 7.3 4.5 - 11.0 K/UL RBC 3.22 (L) 4.0 - 5.0 M/UL Hemoglobin 9.1 (L) 12.0 - 15.0 GM/DL Hematocrit 28.0 (L) 36 - 45 % MCV 87.0 80 - 100 FL MCH 28.1 26 - 34 PG MCHC 32.3 32.0 - 36.0 G/DL RDW 16.1 (H) 11 - 15 % Platelet Count 379 150 - 400 K/UL MPV 6.7 (L) 7 - 11 FL Neutrophils 70 41 - 77 % Lymphocytes 18 (L) 24 - 44 % Monocytes 9 4 - 12 % Eosinophils 3 0 - 5 % Basophils 0 0 - 2 % Absolute Neutrophil Count 5.10 1.8 - 7.0 K/UL Absolute Lymph Count 1.30 1.0 - 4.8 K/UL Absolute Monocyte Count 0.70 0 - 0.80 K/UL Absolute Eosinophil Count 0.20 0 - 0.45 K/UL Absolute Basophil Count 0.00 0 - 0.20 K/UL COMPREHENSIVE METABOLIC PANEL Collection Time: 07/03/18 6:43 AM Result Value Ref Range Sodium 138 137 - 147 MMOL/L Potassium 4.5 3.5 - 5.1 MMOL/L Chloride 103 98 - 110 MMOL/L Glucose 95 70 - 100 MG/DL Blood Urea Nitrogen 33 (H) 7 - 25 MG/DL Creatinine 1.55 (H) 0.4 - 1.00 MG/DL Calcium 9.3 8.5 - 10.6 MG/DL Total Protein 6.3 6.0 - 8.0 G/DL Total Bilirubin 0.4 0.3 - 1.2 MG/DL Albumin 3.3 (L) 3.5 - 5.0 G/DL Alk Phosphatase 50 25 - 110 U/L AST (SGOT) 10 7 - 40 U/L CO2 27 21 - 30 MMOL/L ALT (SGPT) 6 (L) 7 - 56 U/L Anion Gap 8 3 - 12 eGFR Non 34 (L) >60 mL/min eGFR 41 (L) >60 mL/min IRON + BINDING CAPACITY + %SAT+ FERRITIN Collection Time: 07/03/18 6:43 AM Result Value Ref Range Iron 38 (L) 50 - 160 MCG/DL Iron Binding-TIBC 285 270 - 380 MCG/DL % Saturation 13 (L) 28 - 42 % Ferritin 590 (H) 10 - 200 NG/ML Point of Care Testing (Last 24 hours) Glucose: 95 (07/03/18 0643) Radiology and other Diagnostics Review: Pertinent radiology reviewed. Estela Ghosh DO Pager 1963 * Marbella Espana RN - 07/03/2018 5:52 AM CDT Shift: Night Mentation: A/O x4 Cardiac: S1, S2, regular rhythm Respiratory: RA, non-labored GI/: voids, last BM: 07/02 Nutrition: went NPO at NH Activity: SBA Pain: no c/o pain Family: sister present at admission Follow up: Plan of care is on going * Estela Ghosh DO - 07/02/2018 7:07 PM CDT Formatting of this note may be different from the original. General Progress Note Name: Aracelisezio Espinal Today's Date: 07/02/2018 Admission Date: 07/01/2018 LOS: 1 day Assessment/Plan: Active Problems: Obstructive uropathy Bilateral leg edema Ms Espinal is a 67 y.o. F with history of anxiety, depression, HLD with recent prolonged admission to [facility] in [place] for acute renal failure. She was found to have bilateral hydronephrosis for which ureteral stents placed in addition to L nephrostomy tube placement. Briefly required dialysis during that admission however Cr had improved so this was not continued at time of discharge. Patient presented to urology f/u 07/01 and was c/o exertional dyspnea and progressive BLE edema for which she was instructed to go to the ED. Bilateral hydronephrosis MEE - resolving Pyuria - likely from recent ureteral instrumentation - Patient was found to have acute renal failure by PCP and sent to [facility], was admitted for about 3 weeks. Cr had peaked around 9. Bilateral ureteral stents and L nephrostomy tube placed with improvement in Cr. Briefly required dialysis however this was not continued at discharge as Cr improved to 1.6. - Etiology of obstruction unclear, per patient was found to have posterior bladder wall thickening however CT a/p here only showed collapsed bladder - Urology recommended R nephrostomy tube placement which was performed in IR on 07/02 - UA on admission with pyuria and started on ertapenem due to recent ureteral stent placement Plan > Discussed with urology, plan for ureteral stent removal in AM > Renal following, appreciate recommendations. Will give IV lasix 40mg x1 and assess response. 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 Will DC abx JASSO BLE edema - Likely due to renal failure - Echo showed EF 60%, no diastolic dysfunction. TSH wnl. BNP 71 - Managment of MEE/hydronephrosis as above Occlusive subacute RLE thrombus - BLE venous doppler showed occlusive subacute thrombus in one of the duplicated R popliteal veins - LE doppler at OSH was negative for DVT - Recent L nephrostomy tube placement complicated by subcapsular hematoma requiring PRBC and platelet transfusion so anticoagulation was held - Now s/p R nephrostomy tube placement, would need to hold AC for at least 24 hours post procedure Plan > Will discuss with patient risks/benefits regarding AC in AM Normocytic anemia - Check iron studies FEN: No IVF, replace lytes PRN, low Na diet with 2L fluid restriction DVT ppx: SCDs only due to recent subcapsular hemorrhage Code status: Full code Dispo: Continue inpatient care Subjective No acute events overnight. Patient's only complaint is some pain around the new nephrostomy tube. She denies fever, chills, n/v/d/abd pain. Medications Scheduled Meds: furosemide (LASIX) tablet 40 mg 40 mg Oral QAM8 levofloxacin (LEVAQUIN) 500 mg/100 mL IVPB 500 mg Intravenous RAD levothyroxine (SYNTHROID) tablet 50 mcg 50 mcg Oral QDAY(07) nicotine (NICODERM CQ STEP 1) 21 mg/day patch 1 patch 1 patch Transdermal Q24H* pantoprazole DR (PROTONIX) tablet 40 mg 40 mg Oral QDAY(21) senna/docusate (SENOKOT-S) tablet 1 tablet 1 tablet Oral BID Continuous Infusions: PRN and Respiratory Meds:acetaminophen Q6H PRN, HYDROcodone/acetaminophen Q6H PRN Review of Systems: All other systems reviewed and are negative. Objective: Vital Signs: Last Filed Vital Signs: 24 Hour Range BP: 136/74 (07/02 1600) Temp: 36.8 C (98.3 F) (07/02 1600) Pulse: 77 (07/02 1600) Respirations: 20 PER MINUTE (07/02 1600) SpO2: 99 % (07/02 1600) O2 Delivery: None (Room Air) (07/02 1600) SpO2 Pulse: 76 (07/02 1245) Height: 162.6 cm (64") (07/02 0909) BP: (101-145)/(56-85) Temp: [36.6 C (97.9 F)-36.9 C (98.4 F)] Pulse: [72-84] Respirations: [8 PER MINUTE-20 PER MINUTE] SpO2: [94 %-100 %] O2 Delivery: None (Room Air) Intensity Pain Scale 0-10 (Pain 1): 2 (07/01/18 2130) Vitals: 07/01/18 1223 07/01/18 2100 07/02/18 0909 Weight: 83.9 kg (185 lb) 85.1 kg (187 lb 9.8 oz) 85 kg (187 lb 6.3 oz) Intake/Output Summary: (Last 24 hours) Intake/Output Summary (Last 24 hours) at 07/02/18 1907 Last data filed at 07/02/18 1600 Gross per 24 hour Intake 300 ml Output 2125 ml Net -1825 ml Stool Occurrence: 1 Physical Exam General appearance: alert, cooperative and no distress Head: Normocephalic, without obvious abnormality, atraumatic Eyes: conjunctivae/corneas clear. EOM's intact. Neck: no JVD Lungs: clear to auscultation bilaterally Heart: regular rate and rhythm, S1, S2 normal, no murmur, click, rub or gallop Abdomen: soft, non-tender. Bowel sounds normal. Extremities: 3+ BLE edema Neurologic: No focal deficit Peripheral pulses: 2+ and symmetric Skin: Skin color, texture, turgor normal. No rashes or lesions Musculoskeletal: Normal / Negative Psych: Normal Lab Review 24-hour labs: Results for orders placed or performed during the hospital encounter of (from the past 24 hour(s)) CBC AND DIFF Collection Time: 07/02/18 6:18 AM Result Value Ref Range White Blood Cells 7.9 4.5 - 11.0 K/UL RBC 3.13 (L) 4.0 - 5.0 M/UL Hemoglobin 8.9 (L) 12.0 - 15.0 GM/DL Hematocrit 27.3 (L) 36 - 45 % MCV 87.2 80 - 100 FL MCH 28.5 26 - 34 PG MCHC 32.7 32.0 - 36.0 G/DL RDW 16.0 (H) 11 - 15 % Platelet Count 378 150 - 400 K/UL MPV 7.0 7 - 11 FL Neutrophils 72 41 - 77 % Lymphocytes 16 (L) 24 - 44 % Monocytes 8 4 - 12 % Eosinophils 3 0 - 5 % Basophils 1 0 - 2 % Absolute Neutrophil Count 5.70 1.8 - 7.0 K/UL Absolute Lymph Count 1.30 1.0 - 4.8 K/UL Absolute Monocyte Count 0.70 0 - 0.80 K/UL Absolute Eosinophil Count 0.20 0 - 0.45 K/UL Absolute Basophil Count 0.00 0 - 0.20 K/UL COMPREHENSIVE METABOLIC PANEL Collection Time: 07/02/18 6:18 AM Result Value Ref Range Sodium 135 (L) 137 - 147 MMOL/L Potassium 4.7 3.5 - 5.1 MMOL/L Chloride 105 98 - 110 MMOL/L Glucose 94 70 - 100 MG/DL Blood Urea Nitrogen 34 (H) 7 - 25 MG/DL Creatinine 1.58 (H) 0.4 - 1.00 MG/DL Calcium 9.3 8.5 - 10.6 MG/DL Total Protein 6.5 6.0 - 8.0 G/DL Total Bilirubin 0.4 0.3 - 1.2 MG/DL Albumin 3.4 (L) 3.5 - 5.0 G/DL Alk Phosphatase 47 25 - 110 U/L AST (SGOT) 12 7 - 40 U/L CO2 24 21 - 30 MMOL/L ALT (SGPT) 4 (L) 7 - 56 U/L Anion Gap 6 3 - 12 eGFR Non 33 (L) >60 mL/min eGFR 40 (L) >60 mL/min MAGNESIUM Collection Time: 07/02/18 6:18 AM Result Value Ref Range Magnesium 2.0 1.6 - 2.6 mg/dL PHOSPHORUS Collection Time: 07/02/18 6:18 AM Result Value Ref Range Phosphorus 4.9 (H) 2.0 - 4.0 MG/DL BNP (B-TYPE NATRIURETIC PEPTI) Collection Time: 07/02/18 6:18 AM Result Value Ref Range B Type Natriuretic Peptide 71.0 0 - 100 PG/ML TSH WITH FREE T4 REFLEX Collection Time: 07/02/18 6:18 AM Result Value Ref Range TSH 2.360 0.35 - 5.00 MCU/ML Point of Care Testing (Last 24 hours) Glucose: 94 (07/02/18 0618) Radiology and other Diagnostics Review: Pertinent radiology reviewed. Estela Ghosh DO Pager [phone] * Cheikh Swain, ELADIO - 07/02/2018 3:14 PM CDT Aspirated packing from dialysis catheter, flushed and repacked with citrate. Dressing changed on dialysis catheter. * Rica Valdez RN - 07/02/2018 11:55 AM CDT Sedation physician present in room. Recent vitals and patient condition reviewed between sedating physician and nurse. Reassessment completed. Determination made to proceed with planned sedation. * Marci Cha RN - 07/02/2018 8:04 AM CDT IR Progress Note Right neph tube placement per urology. Patient with persistent right hydro. CT . Patient had bilateral nephroureteral stents and left neph tube placed at OSH. Per urology note: PLAN: - recommend IR placement of right nephrostomy tube - will remove ureteral stents once nephrostomy tubes in place Labs, meds, allergies okay. Marci Cha RN BSN * Marbella Espana RN - 07/02/2018 5:31 AM CDT Shift: Night Mentation: A/O x4 Cardiac: S1, S2, regular rhythm Respiratory: RA, non-labored GI/: voids, last BM: 07/01 Nutrition: went NPO at [facility] Activity: SBA Pain: no c/o pain Family: sister present at admission Follow up: Plan of care is on going * Marbella Espana RN - 07/01/2018 10:00 PM CDT Patient arrived to room # (4614-2*) via wheelchair accompanied by transport. Patient transferred to the bed without assistance. Bedside safety checks completed. Initial patient assessment completed, refer to flowsheet for details. Admission skin assessment completed by: Marbella Espana RN and Korin Zhou RN Pressure Injury Present on Hospital Admission (within 24 hours): No 1. Occiput: No 2. Ear: No 3. Scapula: No 4. Spinous Process: No 5. Shoulder: No 6. Elbow: No 7. Iliac Crest: No 8. Sacrum/Coccyx: No 9. Ischial Tuberosity: No 10. Trochanter: No 11. Knee: No 12. Malleolus: No 13. Heel: No 14. Toes: No 15. Assessed for device associated injury Yes 16. Nursing Nutrition Assessment Completed Yes See Doc Flowsheet for additional wound details. INTERVENTIONS: * Jennifer Esposito MD - 07/01/2018 6:45 PM CDT Review of outside records 67 year old obese female patient who presented to [facility] in [place] on 06/03/2018 with complaints of fatigue, decreased urine output and nausea. She underwent CAT scan at the outside facility which showed bladder distention as well as bilateral hydronephrosis. She had a creatinine of 9.3 on admission. Nephrology physician were consulted as well as urology was consulted. Bilateral ureteral stents were placed and patient had increased urine output. Her creatinine slowly improved urine output improved. She was briefly on dialysis at the outside hospital. There were concern for mass-effect on the bladder on the CAT scan of the abdomen and pelvis. There were concern of colonic mass in the outpatient CT. Based on these findings, patient underwent colonoscopy, found to have redundant sigmoid colon. Small polyps were noted which were excised. There was further decline in the urine output again for which she underwent nephrostomy tube placement on the left kidney on 06/19/2018. She had gross hematuria post nephrostomy tube placement. Renal scan was done which showed 70+ % function of the left kidney and 20 or less function of the right kidney. Her hydronephrosis persisted despite the placement of the stents. Patient had significant hematuria after nephrostomy tube placement on the left. Patient also developed profound thrombocytopenia and she was transfused with platelet at outside facility. She was also transfused with blood products for severe anemia. There was also mention of thickening of bladder wall. There was also concern for condyloma of genitalia which was thought as a source of distal urteral obstruction. MRI of the pelvis 06/25/2018 Circumferential abnormal urinary bladder wall thickening. This finding is nonspecific. It can be seen in the setting of severe cystitis or chronic urinary bladder outlet dysfunction. An aggressive neoplastic mucosal process of the urinary bladder cannot be definitively excluded. The diagnostic study of choice is cystoscopy. Bony structures are intact. There is no evidence of bulky lymphadenopathy in the pelvis. There is mild anasarca. Mild to distal right ureter appears to be moderately dilated. 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 Ultrasound of the kidney 06/24/2018: Right-sided ureteral stent and left-sided nephrostomy present. Right kidney shows moderate hydronephrosis. Right renal pelvis is measured at about 3.2 cm. Left kidney has heterogeneous echotexture and echogenicity. This could indicate possible left pyelonephritis within the right clinical setting. There is no definite or obvious perinephric fluid collection. Lower extremity ultrasound 06/22/2018 negative for DVT In bilateral lower extremity. 35 minutes [id number] time was spent reviewing outside medical record. in this encounter H&P Notes * Allen, Pearl, MSN,DEVULCANIZER HEAD - 07/04/2018 7:31 AM CDT Formatting of this note may be different from the original. Pre Procedure History and Physical/Sedation Plan Procedure Date: 07/04/2018 Planned Procedure(s): IVC venogram. Indication for exam: BLE edema; concern for IVC/iliac compression. Chief Complaint: BLE edema. Previous Anesthetic/Sedation History: Denies adverse events r/t sedation/ anesthesia. Allergies: Codeine Medications: Scheduled Meds: [JAN Hold] furosemide (LASIX) tablet 40 mg 40 mg Oral QAM8 [JAN Hold] levothyroxine (SYNTHROID) tablet 50 mcg 50 mcg Oral QDAY(07) [Jan] nicotine (NICODERM CQ STEP 1) 21 mg/day patch 1 patch 1 patch Transdermal Q24H* [JAN Hold] pantoprazole DR (PROTONIX) tablet 40 mg 40 mg Oral QDAY(21) [Jan] senna/docusate (SENOKOT-S) tablet 1 tablet 1 tablet Oral BID Continuous Infusions: PRN and Respiratory Meds:[JAN Hold] acetaminophen Q6H PRN, [JAN Hold] HYDROcodone/acetaminophen Q6H PRN Vital Signs: Last Filed Vital Signs: 24 Hour Range BP: 104/55 (07/03 2347) Temp: 36.5 C (97.7 F) (07/03 2347) Pulse: 81 (07/03 2347) Respirations: 18 PER MINUTE (07/03 2347) SpO2: 95 % (07/03 2347) O2 Delivery: None (Room Air) (07/03 2347) BP: (104-121)/(49-64) Temp: [36.5 C (97.7 F)-36.8 C (98.3 F)] Pulse: [72-97] Respirations: [16 PER MINUTE-18 PER MINUTE] SpO2: [95 %-100 %] O2 Delivery: None (Room Air) Sedation/Medication Plan: Fentanyl and Midazolam Personal history of sedation complications: Denies adverse event. Family history of sedation complications: Denies adverse event. Medications for Reversal: Naloxone and Flumazenil Discussion/Reviews: Physician has discussed risks and alternatives of this type of sedation and above planned procedures with patient NPO Status: Acceptable Airway: airway assessment performed Mallampati II (soft palate, uvula, fauces visible) Head and Neck: no abnormalities noted Mouth: no abnormalities noted Anesthesia Classification: ASA III (A patient with a severe systemic disease that limits activity, but is not incapacitating) Status: Not Lab/Radiology/Other Diagnostic Tests Labs: Relevant labs reviewed - elevated CR noted, will use CO2 and hydrate prior to procedure I have examined the patient, and there are no significant changes in their condition, from the previous H&P performed on 07/03/18. Pearl Villa, MSN,DEVULCANIZER HEAD Pager [phone] * Jessica Baptiste, DEVULCAN[employer]ER HEAD - 07/02/2018 10:50 AM CDT Formatting of this note may be different from the original. Pre Procedure History and Physical/Sedation Plan Procedure Date: 07/02/2018 Planned Procedure(s): Right nephrostomy tube placement. Indication for exam: Hydronephrosis. Chief Complaint: See above. Previous Anesthetic/Sedation History: Denies adverse events. Allergies: Codeine Medications: Scheduled Meds: ertapenem (INVANZ) IVP 1 g 1 g Intravenous Q24H* [MAR Hold] furosemide (LASIX) tablet 40 mg 40 mg Oral QAM8 [JAN Hold] levothyroxine (SYNTHROID) tablet 50 mcg 50 mcg Oral QDAY(07) [JAN Hold] nicotine (NICODERM CQ STEP 1) 21 mg/day patch 1 patch 1 patch Transdermal Q24H* [MAR Hold] pantoprazole DR (PROTONIX) tablet 40 mg 40 mg Oral QDAY(21) [JAN Hold] senna/docusate (SENOKOT-S) tablet 1 tablet 1 tablet Oral BID Continuous Infusions: PRN and Respiratory Meds:[MAR Hold] acetaminophen Q6H PRN, [JAN Hold] HYDROcodone/acetaminophen Q6H PRN Vital Signs: Last Filed Vital Signs: 24 Hour Range BP: 101/56 (07/02 909) Temp: 36.9 C (98.4 F) (07/02 812) Pulse: 79 (07/02 812) Respirations: 18 PER MINUTE (07/02 812) SpO2: 95 % (07/02 812) O2 Delivery: None (Room Air) (07/02 812) SpO2 Pulse: 70 (07/01 1816) Height: 162.6 cm (64") (07/02 909) BP: (101-137)/(56-83) Temp: [36.5 C (97.7 F)-36.9 C (98.4 F)] Pulse: [75-81] Respirations: [15 PER MINUTE-22 PER MINUTE] SpO2: [95 %-100 %] O2 Delivery: None (Room Air) Sedation/Medication Plan: Fentanyl and Midazolam Personal history of sedation complications: Denies adverse event. Family history of sedation complications: Denies adverse event. Medications for Reversal: Naloxone and Flumazenil Discussion/Reviews: Physician has discussed risks and alternatives of this type of sedation and above planned procedures with patient NPO Status: Acceptable Airway: airway assessment performed Mallampati II (soft palate, uvula, fauces visible) Head and Neck: no abnormalities noted Mouth: no abnormalities noted Anesthesia Classification: ASA III (A patient with a severe systemic disease that limits activity, but is not incapacitating) Status: Not Lab/Radiology/Other Diagnostic Tests Labs: Relevant labs reviewed I have examined the patient, and there are no significant changes in their condition, from the previous H&P performed on 07/02/18. Jessica Baptiste APRN Pager [phone] * Jennifer Esposito MD - 07/01/2018 10:12 PM CDT Formatting of this note may be different from the original. Admission History and Physical Examination Name: Aracelis Espinal Admission Date: 07/01/2018 Assessment/Plan: Active Problems: Obstructive uropathy Bilateral leg edema 67 y.o. female with past medical history significant for anxiety, depression and dyslipidemia who had a recent prolonged hospitalization at [facility] where she presented with nausea vomiting and poor p.o. intake. Patient was found to have bilateral hydronephrosis, was briefly on dialysis at the outside hospital. Her renal function improved to 1.6 of creatinine prior to discharge. And presented today for urology appointment and reported dyspnea on exertion and progressive lower extremity edema for which she was advised to come to emergency department to get admitted through the ER. Dyspnea on exertion/progressive lower extremity edema -Suspected from renal failure. -Renal function has been improving progressively. -Likely can go up on the dose of the diuretics once obstruction is resolved. -Nephrology physician consult to assist with the diuretic up titration will continue to 40 mg p.o. daily of Lasix for now. Was taking 40 mg q. OD prior to coming to hospital. -We will get chest x-ray done in the morning and obtain 2D echocardiogram to evaluate for cardiac etiology though low concern. -Recent lower extremity ultrasound at outside hospital was negative for DVT. We will repeat lower extremity ultrasound. Bilateral hydronephrosis -Status post bilateral ureteral stenting in last week of May. -Status post left nephrostomy tube placement complicated by left subscapular hematoma resulting in bleeding post drain placement needing blood transfusion as well as platelet transfusion. -Continue to monitor for now. No active bleeding. Will hold off on subcu Lovenox for DVT prophylaxis. -Urology recommended right nephrostomy tube placement, will request IR to have right nephrostomy tube done. -She had renal scan done at outside hospital which showed 20% function of the right kidney and 70% function of the left kidney, as per urology note this could be variable because of acute kidney injury. -Patient was briefly on dialysis for severe renal failure. -N.p.o. at midnight for the same. Pyuria in setting of bilateral ureteric stent -Was treated with Keflex on discharge, will start the patient on empiric ertapenem. -Urine culture in process. Suspected chronic kidney disease III versus recovering MEE -Creatinine was as high as 9 at the outside hospital, was 1.6 at the time of discharge, presently 1.53. -Continue to monitor for now. -Avoid nephrotoxic agent. -Nephrology physician consult as above. FEN -No IV fluid. -Lites are stable. -Low-salt diet, n.p.o. at midnight. 1.5 L fluid restriction otherwise. Prophylaxis -SCDs because of recent subcapsular hemorrhage Disposition -Admit to medicine. CODE STATUS Full code Complexity of decision making very high. __ Primary Care Physician: Jeny Garcia Verified Chief Complaint: Sent from urology clinic for nephrostomy tube placement. History of Present Illness: Aracelis Espinal is a 67 y.o. female with past medical history significant for anxiety, depression and dyslipidemia who had a recent prolonged hospitalization at [facility] in [place] where she presented with nausea vomiting and poor p.o. intake. Patient was found to have bilateral hydronephrosis, was briefly on dialysis at the outside hospital. Her renal function improved to 1.6 of creatinine prior to discharge. She was discharged on diuretics, continues to have lower extremity edema. She also underwent bilateral left nephrostomy tube placement which was complicated by hematuria and on CT today showed large left subcapsular hemorrhage. Patient also underwent blood transfusion and platelet transfusion at outside hospital. Patient reported bilateral lower extremity edema which has been progressively getting worse in spite of taking Lasix, denies any orthopnea PND though reported feeling short of breath with activity. Denies any chest pain palpitation. Denies any headache lightheadedness. Denies any weakness or numbness in any part of the body. Denies any fever or chills. Past Medical History: Diagnosis Date Anemia Anxiety disorder Cataract Colon polyps Depression Dyslipidemia Thyroid disorder Ulcer of the stomach and intestine Past Surgical History: Procedure Laterality Date HX HYSTERECTOMY 2001 HX CATARACT REMOVAL Bilateral 01/2018 BACK SURGERY 1979; 1998 BUNIONECTOMY HX APPENDECTOMY HX CHOLECYSTECTOMY Family history reviewed; non-contributory Social History Social History Marital status: Single Spouse name: N/A Number of children: N/A Years of education: N/A Social History Main Topics Smoking status: Former Smoker Quit date: 06/03/2018 Smokeless tobacco: Never Used Alcohol use No Drug use: No Sexual activity: No Other Topics Concern Not on file Social History Narrative No narrative on file Immunizations (includes history and patient reported): There is no immunization history on file for this patient. Allergies: Codeine Medications: Current Facility-Administered Medications Medication acetaminophen (TYLENOL) tablet 650 mg ertapenem (INVANZ) IVP 1 g furosemide (LASIX) tablet 40 mg HYDROcodone/acetaminophen (NORCO) 5/325 mg tablet 1-2 tablet [START ON 07/02/2018] levothyroxine (SYNTHROID) tablet 50 mcg nicotine (NICODERM CQ STEP 1) 21 mg/day patch [address] (PROTONIX) tablet 40 mg senna/docusate (SENOKOT-S) tablet 1 tablet Review of Systems: A 14 point review of systems was negative except for: Cardiovascular: positive for dyspnea Musculoskeletal: positive for Bilateral lower extremity edema Physical Exam: Vital Signs: Last Filed In 24 Hours Vital Signs: 24 Hour Range BP: 128/67 (07/01 2100) Temp: 36.6 C (97.9 F) (07/01 2100) Pulse: 81 (07/01 2100) Respirations: 20 PER MINUTE (07/01 2100) SpO2: 100 % (07/01 2100) O2 Delivery: None (Room Air) (07/01 2100) SpO2 Pulse: 70 (07/01 1816) Height: 162.6 cm (64") (07/01 2100) BP: (117-137)/(62-83) Temp: [36.5 C (97.7 F)-36.6 C (97.9 F)] Pulse: [75-81] Respirations: [15 PER MINUTE-22 PER MINUTE] SpO2: [99 %-100 %] O2 Delivery: None (Room Air) Intensity Pain Scale 0-10 (Pain 1): 6 (07/01/182033) General: Well developed, alert, awake and oriented x3. Head: Normocephalic, without obvious abnormality, atraumatic Nose/Throat: Mucous membrane moist. Eyes: Conjunctivae/corneas clear. PERRL, EOMs intact. Neck: Supple, symmetrical, No JVD, No bruit Lungs: Clear to auscultation bilaterally Back: Non tender, no kyphosis or scoliosis. Nephrostomy tube is present on the left CVA. Heart: S1, S2 heard, Regular rate and rhythm, no murmur, click rub or gallop Abdomen: Soft, non-tender, non distended, Bowel sounds normal. No masses. No organomegaly. Extremities: No cyanosis or clubbing. Pulses: 2+ and symmetric, all extremities. +3 pitting edema in bilateral lower extremities Neurologic: CNII - XII intact. Normal strength, sensation, non focal exam Skin: Clear, no rashes Psyche: Normal affect Lab/Radiology/Other Diagnostic Tests: 24-hour labs: Results for orders placed or performed during the hospital encounter of (from the past 24 hour(s)) CBC AND DIFF Collection Time: 07/01/18 1:35 PM Result Value Ref Range White Blood Cells 9.1 4.5 - 11.0 K/UL RBC 3.38 (L) 4.0 - 5.0 M/UL Hemoglobin 9.9 (L) 12.0 - 15.0 GM/DL Hematocrit 29.7 (L) 36 - 45 % MCV 87.7 80 - 100 FL MCH 29.3 26 - 34 PG MCHC 33.4 32.0 - 36.0 G/DL RDW 16.4 (H) 11 - 15 % Platelet Count 425 (H) 150 - 400 K/UL MPV 7.4 7 - 11 FL Neutrophils 69 41 - 77 % Lymphocytes 18 (L) 24 - 44 % Monocytes 9 4 - 12 % Eosinophils 3 0 - 5 % Basophils 1 0 - 2 % Absolute Neutrophil Count 6.30 1.8 - 7.0 K/UL Absolute Lymph Count 1.70 1.0 - 4.8 K/UL Absolute Monocyte Count 0.80 0 - 0.80 K/UL Absolute Eosinophil Count 0.20 0 - 0.45 K/UL Absolute Basophil Count 0.00 0 - 0.20 K/UL COMPREHENSIVE METABOLIC PANEL Collection Time: 07/01/18 1:35 PM Result Value Ref Range Sodium 136 (L) 137 - 147 MMOL/L Potassium 4.2 3.5 - 5.1 MMOL/L Chloride 103 98 - 110 MMOL/L Glucose 89 70 - 100 MG/DL Blood Urea Nitrogen 32 (H) 7 - 25 MG/DL Creatinine 1.53 (H) 0.4 - 1.00 MG/DL Calcium 9.6 8.5 - 10.6 MG/DL Total Protein 7.1 6.0 - 8.0 G/DL Total Bilirubin 0.4 0.3 - 1.2 MG/DL Albumin 3.8 3.5 - 5.0 G/DL Alk Phosphatase 48 25 - 110 U/L AST (SGOT) 13 7 - 40 U/L CO2 24 21 - 30 MMOL/L ALT (SGPT) <3 (L) 7 - 56 U/L Anion Gap 9 3 - 12 eGFR Non 34 (L) >60 mL/min eGFR 41 (L) >60 mL/min MAGNESIUM Collection Time: 07/01/18 1:35 PM Result Value Ref Range Magnesium 2.0 1.6 - 2.6 mg/dL URINALYSIS DIPSTICK REFLEX TO CULTURE Collection Time: 07/01/18 2:30 PM Result Value Ref Range Color,UA YELLOW Turbidity,UA CLEAR CLEAR-CLEAR Specific [place]-Urine 1.010 1.003 - 1.035 pH,UA 6.0 5.0 - 8.0 Protein,UA 1+ (A) NEG-NEG Glucose,UA NEG NEG-NEG Ketones,UA NEG NEG-NEG Bilirubin,UA NEG NEG-NEG Blood,UA 3+ (A) NEG-NEG Urobilinogen,UA NORMAL NORM-NORMAL Nitrite,UA NEG NEG-NEG Leukocytes,UA 2+ (A) NEG-NEG Urine Ascorbic Acid, UA NEG NEG-NEG URINALYSIS MICROSCOPIC REFLEX TO CULTURE Collection Time: 07/01/18 2:30 PM Result Value Ref Range WBCs,UA 10-20 0 - 2 /HPF RBCs,UA PACKED 0 - 3 /HPF Comment,UA Urine submitted for reflex culture if criteria are met:WBC>10, positive nitrite and/or >=1+ leukocyte esterase. If quantity is not sufficient, an addendum will follow. MucousUA TRACE Bacteria,UA MODERATE (A) NEG-NEG Squamous Epithelial Cells 0-2 0 - 5 POC TROPONIN Collection Time: 07/01/18 2:31 PM Result Value Ref Range [id number]-ZCL 0.00 0.00 - 0.05 NG/ML BNP POC ER Collection Time: 07/01/18 2:31 PM Result Value Ref Range BNP POC 123.0 (H) 0 - 100 PG/ML Glucose: 89 (07/01/18 1335) Pertinent radiology reviewed. Ct Abd/pelv Wo Contrast Result Date: 07/01/2018 1. Placement of left percutaneous nephrostomy catheter since June 19, 2018 with large left subcapsular hemorrhage compressing the left kidney. 2. Bilateral nephroureteral stents remain in place with persistent moderate right hydronephrosis. 3. Symmetric presacral and perirectal soft tissue thickening which may be from edema or fibrosis. Finalized by Jean Paul Culver M.D. on 2017 4:23 PM. Dictated by Jean Paul Culver M.D. on 07/01/2018 4:18 PM. JENNIFER ESPOSITO MD Pager [phone] in this encounter Consult Notes * Deidre Schaefer - 07/07/2018 10:58 AM CDT Associated Order(s): CONSULT DIETITIAN CLINICAL NUTRITION Clinical Nutrition Education Summary NAME:Aracelis Espinal :1950 AGE : 67 y.o. ADMISSION DATE: 07/01/2018 DAYS ADMITTED: LOS: 6 days Education on Low Sodium Diet was provided. Topics included the following: ? Indications for diet ? Sodium limit of 2,000 milligrams daily ? Foods recommended/not recommended ? Sodium content of foods (examples) ? Reading food labels ? Food preparation suggestions ? Sodium-free seasonings ? Sample meals and snacks ? Eating out tips ? Importance of weighing self daily Written materials were provided. Phone number was given for any further nutrition-related questions. Learner(s): Patient Learner's Response: Verbalized understanding of diamond dietary guidelines taught. Verbalized his/her intention to make needed dietary changes. Comments: 67 year old female with anxiety, depression, GERD, hypothyroidism, vitamin D deficiency, and recent prolonged admission at [facility] for MEE likely due to an obstructive process status post short term dialysis, bilateral ureteral stents and left nephrostomy tube placement for bilateral hydronephrosis who was referred to ED from urology clinice 07/01 for exertional dyspnea and progressive BLE edema. Consult received for low Na diet education. Met with pt today for low Na nutrition therapy. Pt denies eating most high Na foods at home except some canned vegetables, sausage, and cheese. We discussed Na content of these foods and lower Na options. Pt denies eating out often and does not typically use ready to eat foods. Pt mostly with questions about what food is allowed on diet and we reviewed recommended foods list. 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 No GI distress. Still with 2+ pitting edema of BLE, lasix on board. No pressure injuries noted. Not currently at nutrition risk WIll continue to monitor. Recommendation: Continue current diet as ordered. RAI Prieto-NDTR *[id number] * Marisol Arias MD - 07/02/2018 2:26 PM CDT Associated Order(s): CONSULT NEPHROLOGY PHYSICIAN Formatting of this note may be different from the original. Renal Consult Aracelis Espinal Admission Date: 07/01/2018 Assessment and Plan Active Problems: Obstructive uropathy Bilateral leg edema Aracelis Espinal is a 67 y.o. female with MEE from obstruction and lower extremity edema 1. MEE - from obstruction - improving - now with bilateral nephrostomy tubes - did require HD in early June off HD now - has TDC 2. Lower extremity edema 3. Bilateral hydronephrosis - with failed ureter stents now with PCN 4. Anemia Recommendations - - renal functions table - would give 40 IV lasix today - would get iron studies to assess for ERICK - her edema and bilateral obstruction is concern for some process compression both ureter and IVC need to consider further investigation as to what caused this obstruction - renally dose medications - avoid mag containing medications - avoid nephrotoxins (IV contrast and NSAIDS) - strict Is and Os - Daily weights - will have dialysis nurse change TDC dressing and flush catheter today Marisol Arias MD Pager [phone] History Reason for Consult: MEE HPI: Aracelis Espinal is a 67 y.o. female started to developed edema in her legs at the beginning of May. She had progressive fatigue and overall just felt poorly so on June 03 her PCP had labs done that showed Cr of 9. She was admitted to OSH and found to have bilateral hydronephrosis. She had ureter stents placed and had some recovery of renal function with Cr down to 4 range but beginning of June her stents just stopped working and so she had left PCN placed given that her MAG3 scan showed 70% function on that side. She required HD 06/15-06/19 has has been off of it ever since. Her Cr yesterday at the OSH was 1.5. Today she continues to have lower extremity edema that was slightly improved with lasix. She denies any chest pain, nausea, vomiting, diarrhea or problems breathing. She does fatigue easily and can only walk around 10 stepts Past Medical History Past Medical History: Diagnosis Date Anemia Anxiety disorder Cataract Colon polyps Depression Dyslipidemia Thyroid disorder Ulcer of the stomach and intestine Past Surgical History: Procedure Laterality Date HX HYSTERECTOMY 2002 HX CATARACT REMOVAL Bilateral 01/2018 BACK SURGERY 1979; 1998 BUNIONECTOMY HX APPENDECTOMY HX CHOLECYSTECTOMY Family History Family History Problem Relation Age of Onset Cancer Mother Cancer Sister Social History Social History Social History Marital status: Single Spouse name: N/A Number of children: N/A Years of education: N/A Social History Main Topics Smoking status: Former Smoker Quit date: 06/03/2018 Smokeless tobacco: Never Used Alcohol use No Drug use: No Sexual activity: No Other Topics Concern Not on file Social History Narrative No narrative on file Medications MEDS anticoagulant sodium citrate NOW anticoagulant sodium citrate 1-5 mL Intra-catheter ONCE ertapenem (INVANZ) IV 1 g Intravenous Q24H* furosemide 40 mg Intravenous ONCE furosemide 40 mg Oral QAM8 levofloxacin (LEVAQUIN) IVPB 500 mg Intravenous RAD levothyroxine 50 mcg Oral QDAY(07) nicotine 1 patch Transdermal Q24H* pantoprazole DR 40 mg Oral QDAY() senna/docusate 1 tablet Oral BID IV MEDS Prn acetaminophen Q6H PRN 650 mg at 07/02/18 0633, HYDROcodone/ acetaminophen Q6H PRN 1 tablet at 07/01/18 2033 HOME MEDS Prior to Admission Medications Prescriptions Last Dose Informant Patient Reported? Taking? HYDROcodone/acetaminophen(+) (NORCO) 10/325 mg tablet Past Week Outside Record Yes Yes Sig: Take 1 tablet by mouth every 6 hours as needed acetaminophen (TYLENOL) 325 mg tablet Past Week Self Yes Yes Sig: Take 1 tablet by mouth every 6 hours as needed (headache). calcium carbonate (TUMS) 500 mg (200 mg elemental calcium) chewable tablet 2017 Self Yes Yes Sig: Chew 1 tablet by mouth twice daily. carboxymethylcellulose (REFRESH PLUS) 0.5 % dpet 07/01/2018 Yes Yes Sig: Apply 1 drop to both eyes as Needed. cephalexin (KEFLEX) 500 mg capsule 07/01/2018 Outside Pharmacy Yes Yes Sig: Take 500 mg by mouth every 12 hours. clonazePAM (KLONOPIN) 1 mg tablet Past Month Outside Record Yes Yes Sig: Take 1 tablet by mouth daily as needed for panic attacks docusate (COLACE) 100 mg capsule 07/01/2018 Self Yes Yes Sig: Take 100 mg by mouth twice daily. ergocalciferol (VITAMIN D-2) 50,000 unit capsule 06/27/2018 Outside Pharmacy Yes Yes Sig: Take 1 capsule by mouth every . furosemide (LASIX) 40 mg tablet 07/01/2018 Self Yes Yes Sig: Take 40 mg by mouth every 48 hours. levothyroxine (SYNTHROID) 50 mcg tablet 07/01/2018 Self Yes Yes Sig: Take 50 mcg by mouth daily 30 minutes before breakfast. nicotine (NICODERM CQ STEP 1) 21 mg/day patch 07/01/2018 Self Yes Yes Sig: Apply 1 patch to top of skin as directed every [address] (PROTONIX) 40 mg tablet 07/01/2018 Self Yes Yes Sig: Take 40 mg by mouth daily. Facility-Administered Medications: None Review of Systems Constitutional: fatigue Eyes: negative Ears, nose, mouth, throat, and face: negative Respiratory: negative Cardiovascular: edema Gastrointestinal: negative Genitourinary:negative Integument/breast: negative Hematologic/lymphatic: negative Musculoskeletal:negative Neurological: negative Endocrine: negative Physical Exam Vital Signs: Last Filed In 24 Hours Vital Signs: 24 Hour Range BP: 133/67 (07/02 1245) Temp: 36.6 C (97.9 F) (07/02 1054) Pulse: 76 (07/02 1245) Respirations: 20 PER MINUTE (07/02 1245) SpO2: 97 % (07/02 1245) O2 Delivery: None (Room Air) (07/02 1245) SpO2 Pulse: 76 (07/02 1245) Height: 162.6 cm (64") (07/02 0909) BP: (101-145)/(56-85) Temp: [36.6 C (97.9 F)-36.9 C (98.4 F)] Pulse: [72-84] Respirations: [8 PER MINUTE-20 PER MINUTE] SpO2: [94 %-100 %] O2 Delivery: None (Room Air) Intensity Pain Scale 0-10 (Pain 1): 2 (07/01/18 2130) Vitals: 07/01/18 1223 07/01/18 2100 07/02/18 0909 Weight: 83.9 kg (185 lb) 85.1 kg (187 lb 9.8 oz) 85 kg (187 lb 6.3 oz) Intake/Output Summary (Last 24 hours) at 07/02/18 1426 Last data filed at 07/02/18 0813 Gross per 24 hour Intake 300 ml Output 825 ml Net -525 ml Gen: Alert and Oriented, No Acute Distress HEENT: Sclera normal; MMM CV: S1 and S2 normal, no rubs, murmurs or gallops Pulm: Clear to Auscultation bilateral GI: BS+ x4, non-tender to palpation Neuro: Grossly normal, moving all extremities, speech intact Ext: 3+ edema, no clubbing or cyanosis Skin: no rash Labs Recent Labs 07/01/18 1335 07/02/18 0618 NA 136* 135* K 4.2 4.7 CL 103 105 CO2 24 24 GAP 9 6 BUN 32* 34* CR 1.53* 1.58* GLU 89 94 CA 9.6 9.3 ALBUMIN 3.8 3.4* MG 2.0 2.0 PO4 -- 4.9* TSH -- 2.360 Recent Labs 07/01/18 1335 07/02/18 0618 WBC 9.1 7.9 HGB 9.9* 8.9* HCT 29.7* 27.3* PLTCT 425* 378 AST 13 12 ALT <3* 4* ALKPHOS 48 47 Estimated Creatinine Clearance: 37.4 mL/min (A) (based on SCr of 1.58 mg/dL (H)) . Vitals: 07/01/18 1223 07/01/18 2100 07/02/18 0909 Weight: 83.9 kg (185 lb) 85.1 kg (187 lb 9.8 oz) 85 kg (187 lb 6.3 oz) No results for input(s): PHART, PO2ART in the last 72 hours. Invalid input(s): PC02A Radiology Pertinent radiology reviewed. * Fany Andrea MD - 07/02/2018 6:22 AM CDT Associated Order(s): CONSULT UROLOGY PHYSICIAN Formatting of this note may be different from the original. [facility] Urology Consult 07/02/2018 Patient: Aracelis Espinal Admission Date: 07/01/2018, LOS: 1 day Admission Diagnosis: Obstructive uropathy Bilateral leg edema Reason for Consult: Urology patient, worsening edema, dysuria hx Left nephrostomy, b/l stents ASSESSMENT: 67 y.o. female with history of bilateral hydronephrosis with left nephrostomy tube and bilateral stents in place PLAN: - recommend IR placement of right nephrostomy tube - will remove ureteral stents once nephrostomy tubes in place Please call operations support manager urology resident with questions. Discussed and formulated plan of care with staff surgeon, Dr. Moseley. Fany Andrea MD Urology Resident __ HPI: Aracelis Espinal is a 67 y.o. female with history of bilateral hydronephrosis identified when she presented to [facility] 06/03/18 with Cr 9.3 complaining of fatigue, nausea/vomiting, [...] and she did require platelet and pRBC transfusion after NT placement. She had severe peripheral edema, partially improved with lasix. She still has edema from the waist down. At present all her urine output is from her left nephrostomy tube, except for a small dribble of urine when she attempts to void. CT done in ED here shows some left renal hematoma, likely sequela of prior NT placement. ROS: 14 point ROS performed. Positive for fatigue, malaise, and edema. Past Medical History: Diagnosis Date Anemia Anxiety disorder Cataract Colon polyps Depression Dyslipidemia Thyroid disorder Ulcer of the stomach and intestine Past Surgical History: Procedure Laterality Date HX HYSTERECTOMY 2001 HX CATARACT REMOVAL Bilateral 01/2018 BACK SURGERY 1979; 1998 BUNIONECTOMY HX APPENDECTOMY HX CHOLECYSTECTOMY Medications: No current facility-administered medications on file prior to encounter. Current Outpatient Prescriptions on File Prior to Encounter Medication Sig Dispense Refill acetaminophen (TYLENOL) 325 mg tablet Take 1 tablet by mouth every 6 hours as needed (headache). calcium carbonate (TUMS) 500 mg (200 mg elemental calcium) chewable tablet Chew 1 tablet by mouth twice daily. cephalexin (KEFLEX) 500 mg capsule Take 500 mg by mouth every 12 hours. clonazePAM (KLONOPIN) 1 mg tablet Take 1 tablet by mouth daily as needed for panic attacks docusate (COLACE) 100 mg capsule Take 100 mg by mouth twice daily. furosemide (LASIX) 40 mg tablet Take 40 mg by mouth every 48 hours. HYDROcodone/acetaminophen(+) (NORCO) 10/325 mg tablet Take 1 tablet by mouth every 6 hours as needed levothyroxine (SYNTHROID) 50 mcg tablet Take 50 mcg by mouth daily 30 minutes before breakfast. nicotine (NICODERM CQ STEP 1) 21 mg/day patch Apply 1 patch to top of skin as directed every [address] (PROTONIX) 40 mg tablet Take 40 mg by mouth daily. Allergies: Codeine Social History Social History Marital status: Single Spouse name: N/A Number of children: N/A Years of education: N/A Occupational History Not on file. Social History Main Topics Smoking status: Former Smoker Quit date: 06/03/2018 Smokeless tobacco: Never Used Alcohol use No Drug use: No Sexual activity: No Other Topics Concern Not on file Social History Narrative No narrative on file Family History Problem Relation Age of Onset Cancer Mother Cancer Sister Vitals: Vital Signs: Last Filed In 24 Hours Vital Signs: 24 Hour Range BP: 113/59 (07/01 2246) Temp: 36.8 C (98.2 F) (07/01 2246) Pulse: 77 (07/01 2246) Respirations: 18 PER MINUTE (07/01 2246) SpO2: 100 % (07/01 2246) O2 Delivery: None (Room Air) (07/01 2246) SpO2 Pulse: 70 (07/01 1816) Height: 162.6 cm (64") (07/01 2100) BP: (113-137)/(59-83) Temp: [36.5 C (97.7 F)-36.8 C (98.2 F)] Pulse: [75-81] Respirations: [15 PER MINUTE-22 PER MINUTE] SpO2: [99 %-100 %] O2 Delivery: None (Room Air) Intensity Pain Scale 0-10 (Pain 1): 2 (07/01/18 2130) Physical Exam: General: well nourished, alert and oriented, no acute distress Head/Eyes/Ears/Nose/Throat: normocephalic, atraumatic, extraocular movements intact Chest: non-labored on room air Cardiovascular: regular rate/rhythm, palpable symmetric radial pulses Abdomen: soft, nontender, nondistended Genito-urinary: left NT with clear yellow urine Extremities: ++BLE edema Neuro: cranial nerves III-XII grossly intact, no focal deficits, moves all extremities Psych: normal mood, affect, and thought process Intake/Output: Intake/Output Summary (Last 24 hours) at 07/02/18 0622 Last data filed at 07/02/18 0400 Gross per 24 hour Intake 300 ml Output 650 ml Net -350 ml Lab/Radiology/Other Diagnostic Tests: Recent Labs 07/01/18 1335 HGB 9.9* HCT 29.7* WBC 9.1 PLTCT 425* NA 136* K 4.2 CL 103 CO2 24 BUN 32* CR 1.53* GLU 89 CA 9.6 MG 2.0 ALBUMIN 3.8 TOTPROT 7.1 TOTBILI 0.4 AST 13 ALT <3* ALKPHOS 48 Glucose: 89 (07/01/18 1335) in this encounter Miscellaneous Notes * Case Mgmt DC Plan - Roxi Decker RN - 07/08/2018 9:51 AM CDT Formatting of this note may be different from the original. Case Management Progress Note NAME:Aracelis Espinal :1949 AGE: 67 y.o. ADMISSION DATE: 07/01/2018 DAYS ADMITTED: LOS: 7 days Todays Date: 07/08/2018 Plan Discharge to home today with home health Interventions ? Support Support: Pt/Family Updates re:POC or DC Plan, Patient Education ? Info or Referral ? Discharge Planning Discharge Planning: Home Health -Chinmay MONTERO notified of patient discharging to home today. Orders and AVS faxed to Chinmay Willis. Pt's AVS updated with contact information of Chinmay Willis. ? Medication Needs Medication Needs: Medication Prior-Auth -NCM notified that patient will discharge to home with Eliquis. Pt already provided with a 30 day free card. NCM notified [facility] to see if prescription will need a PA. PA not needed. Pt's insurance will cover medication. ? Financial ? Legal ? Other Disposition ? Expected Discharge Date Expected Discharge Date: 07/07/18 ? Transportation Does the patient need discharge transport arranged?: No Transportation Name, Phone and Availability #1: sister and Win are living in [facility] Does the patient use Medicaid Transportation?: No ? Next Level of Care (Acute Psych discharges only) ? Discharge Disposition Durable Medical Equipment No service has been selected for the patient. Destination No service has been selected for the patient. Home Care Service Request Status Selected Specialties Address Phone Number Fax Number [facility] [address] [facility] [address] Dialysis/Infusion No service has been selected for the patient. Roxi Decker MSN, visualization developer [phone] Pager *[phone] * Case Mgmt DC Plan - Juan Panchal - 07/05/2018 3:11 PM CDT Formatting of this note may be different from the original. Case Management Progress Note NAME:Aracelis Espinal :1949 AGE: 67 y.o. ADMISSION DATE: 07/01/2018 DAYS ADMITTED: LOS: 4 days Todays Date: 07/05/2018 Plan Anticipate DC home with family support, and resumption of [facility]. 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 Reeves sign orders and send signed orders, updated clinical information and AVS to [facility]. Teaching Needs Prior to DC: Nephrostomy tubes Expected delivery of any needed medication/supplies/equipment: Materials to deliver additional nephrostomy tube supplies Agency Expected SOC and Services Planned: 07/08/2018 Interventions ? Support Support: Pt/Family Updates re:POC or DC Plan, Patient Education NCM met with patient, discuss possible weekend DC. Pt verbalize understanding. NCM discuss use of Eliquis 30 day copay card with patient. ? Info or Referral ? Discharge Planning Discharge Planning: Home Health Anticipate DC home with [facility], discussed with intake 07/04/2018 ? Medication Needs Medication Needs: Prescription Assistance Program [facility] provide Eliquis 30 day free copay card. ? Financial ? Legal ? Other Disposition ? Expected Discharge Date Expected Discharge Date: 07/07/18 ? Transportation Does the patient need discharge transport arranged?: No Transportation Name, Phone and Availability #1: sister and Win are living in [facility] Does the patient use Medicaid Transportation?: No ? Next Level of Care (Acute Psych discharges only) ? Discharge Disposition Durable Medical Equipment No service has been selected for the patient. [facility] Destination No service has been selected for the patient. Home Care Service Request Status Selected Specialties Address Phone Number Fax Number [facility] Selected Home Health Services [address] [facility] [address] Dialysis/Infusion No service has been selected for the patient. Juan Panchal RN BSN Integrated Nurse Banquet Kitchen Supervisor [phone] * Procedures (Immed Post or Bedside) - Singh Helm APRN-NP - 07/04/2018 4:40 PM CDT Immediate Post Procedure Note Date: 07/04/2018 Attending Physician: Gilberto Karimi MD Performing Provider: KATLIN Still Consent: Consent obtained from patient. Risks and benefits discussed with patient. Time out performed: Consent obtained, correct patient verified, correct procedure verified, correct site verified, patient marked as necessary. Pre/Post Procedure Diagnosis: Renal failure Indications: Completion of therapy Anesthesia: Local 10 mL 2% lidocaine without epinephrine Procedure(s): Tunneled dialysis catheter removal Findings: Successful explant of tunneled right IJ dialysis catheter with cuff fully intact. No evidence of tract site infection noted on assessment. Estimated Blood Loss: None/Negligible Specimen(s) Removed/Disposition: None Complications: None Patient Tolerated Procedure: Well Post-Procedure Condition: stable KATLIN Still Pager [phone] * Procedures (Immed Post or Bedside) - Jed Dsouza MD - 07/04/2018 9: 06 AM CDT Immediate Post Procedure Note Date: 07/04/2018 Attending Physician: Vinny Polo MD Performing Provider: Jed Dsouza MD Consent: Consent obtained from patient. Time out performed: Consent obtained, correct patient verified, correct procedure verified, correct site verified, patient marked as necessary. Pre/Post Procedure Diagnosis: Bilateral lower extremity edema Indications: Bilateral lower extremity edema, concern for IVC/iliac vein compression Anesthesia: Local 5 mL 2% lidocaine without epinephrine with IV sedation versed and fentanyl Procedure(s): IVC venogram Findings: Patent inferior vena cava with no evidence of treatable stenosis or flow limiting occlusion. Estimated Blood Loss: Minimal Specimen(s) Removed/Disposition: None Complications: None Patient Tolerated Procedure: Well Post-Procedure Condition: stable Jed Dsouza MD Pager [phone] * Case Mgmt DC Plan - Juan Panchal - 07/03/2018 4:29 PM CDT Formatting of this note may be different from the original. Case Management Progress Note NAME:Aracelis Espinal :1949 AGE: 67 y.o. ADMISSION DATE: 07/01/2018 DAYS ADMITTED: LOS: 2 days Todays Date: 07/03/2018 Plan Anticipate DC home with resumption of [facility]. Interventions ? Support ? Info or Referral ? Discharge Planning Discharge Planning: Home Health NCM contact [facility] tabular typistMaggy. Confirm patient is current with RN , PT/OT services, and Dr. Garcia to follow. ? Medication Needs ? Financial ? Legal ? Other Disposition ? Expected Discharge Date Expected Discharge Date: 07/05/18 ? Transportation Does the patient need discharge transport arranged?: No Transportation Name, Phone and Availability #1: sister and Win are living in [facility] Does the patient use Medicaid Transportation?: No ? Next Level of Care (Acute Psych discharges only) ? Discharge Disposition Durable Medical Equipment No service has been selected for the patient. Destination No service has been selected for the patient. Home Care Service Request Status Selected Specialties Address Phone Number Fax Number [facility] Selected Home Health Services [address] [facility] [address] [phone] Dialysis/Infusion No service has been selected for the patient. Juan Panchal RN BSN Integrated Nurse Banquet Kitchen Supervisor [phone]/ [phone] * Procedures (Immed Post or Bedside) - Harjit Wellington MD - 07/03/2018 12:18 PM CDT Brief Operative Note Name: Aracelis Espinal is a 67 y.o. female : 1950 DATE OF OPERATION: Date: 07/03/2018 After obtaining informed consent, the patient was prepped and draped in the usual sterile fashion. All instruments were sterile. Flexible cystoscope was placed into the urethra and a 360 pandendoscopy was completed of the bladder. There were not obvious tumors or stones. There was marked large dilated vessels of the bladder mucosa as well as bullous edema. This revealed bilateral ureteral stents and each were removed in succession with a pair of stent graspers without complication. Dr. Moseley was immediately available. Harjit Wellington M.D. PGY-3 Urology * Case Mgmt DC Plan - Xiomara Bragg - 07/03/2018 11:30 AM CDT Case Management Admission Assessment NAME:Aracelis Espinal :1950 AGE: 67 y.o. ADMISSION DATE: 07/01/2018 DAYS ADMITTED: LOS: 2 days Todays Date: 07/03/2018 Source of Information: pt Plan Pt to DC home via family trasnport with resumption of [facility] when medically stable. Plan: CM Assessment, Assist PRN with SW/NCM Services, Discharge Planning for Home Anticipated SW met with pt who confirms after being in [facility] for 3 weeks, pt DC on 06/27 with L neph tube and [facility]. Pt denies any concerns with managing Neph tube and drain at home. 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 Pt denies any concern for DC home with R and L neph tubes. SW notified NCM need for resumption of [facility] at [place]. Pt consulted-recommending home with . PLan for Urology to remove stents at bedside today. Renal following. Patient Address/Phone [address] [phone] (home) Emergency Contact Extended Emergency Contact Information Primary Emergency Contact: Kimber Perez [facility] Relation: Sister Healthcare Directive Healthcare Directive: Yes, patient has a healthcare directive Type of Healthcare Directive: Durable power of trust and estates attorney for healthcare Location of Healthcare Directive: Current and verified in document scanning system Would patient like to fill out a (a new) Healthcare Directive?: N/A Psych Advance Directive (Psych unit only): No, patient does not have a Psych Advance Directive Transportation Does the patient need discharge transport arranged?: No Transportation Name, Phone and Availability #1: are living in [facility] Does the patient use Medicaid Transportation?: No Expected Discharge Date Expected Discharge Date: 07/05/18 Living Situation Prior to Admission ? Living Arrangements Type of Residence: Home, independent Living Arrangements: Alone Bathroom Shower / Tub: Tub/Shower Unit How many levels in the residence?: 2 Can patient live on one level if needed?: Yes Does residence have entry and/or side stairs?: Yes Assistance needed prior to admit or anticipated on discharge: No ? Level of Function Prior level of function: Independent ? Cognitive Abilities Cognitive Abilities: Alert and Oriented, Engages in problem solving and planning , Participates in decision making Financial Resources ? Coverage Primary Insurance: Medicare Secondary Insurance: Commercial insurance Additional Coverage: RX ? Source of Income Source Of Income: Employed ? Financial Assistance Needed? Pt denies difficulty affording medications Psychosocial Needs ? Mental Health Mental Health History: No ? Substance Use History Substance Use History Screen: No ? Other Current/Previous Services ? PCP Jeny Garcia, , ? Pharmacy [facility] [address] [place] [phone] ? Durable Medical Equipment Durable Medical Equipment at home: None ? Home Health Receiving home health: Yes Agency name: current with chinmay willis to manage L neph tube and dressing changes LAUNDRY SUPERVISOR ? Hemodialysis or Peritoneal Dialysis Undergoing hemodialysis or peritoneal dialysis: No ? Tube/Enteral Feeds Receive tube/enteral feeds: No ? Infusion Receive infusions: No ? Private Duty Private duty help used: No ? Home and Community Based Services Home and community based services: No ? Trent White Trent White: No ? Hospice Hospice: No ? Outpatient Therapy PT: No OT: No ARCHITECTURAL WOOD MODEL MAKER: No ? Residential Facility/Intermediate SNF: No NH: No ? Inpatient Rehab IPR: No ? Long-Term Acute Care Hospital LTACH: No ? Acute Hospital Stay Acute Hospital Stay: Yes Was patient's stay within the last 30 days?: Yes When did patient receive care?: karla MARTÍNEZ on 06/27 Readmission Code Group: 5. Medical Plan of Care - Treatment or Possible Complication Related or Unrelated?: Related -chelsie Bragg LMSW *[id number] * Procedures (Immed Post or Bedside) - Jed Dsouza MD - 07/02/2018 12: 10 PM CDT Immediate Post Procedure Note Date: 07/02/2018 Attending Physician: Mani Franco MD Performing Provider: Jed Dsouza MD Consent: Consent obtained from patient. Time out performed: Consent obtained, correct patient verified, correct procedure verified, correct site verified, patient marked as necessary. Pre/Post Procedure Diagnosis: Hydronephrosis Indications: Hydronephrosis Anesthesia: Local 5 mL 2% lidocaine without epinephrine with IV sedation versed and fentanyl Procedure(s): Percutaneous nephrostomy tube placement, anterograde nephrostogram. Findings: Successful placement of right percutaneous nephrostomy tube. Marked hydroureteronephrosis. Estimated Blood Loss: Minimal Specimen(s) Removed/Disposition: None Complications: None Patient Tolerated Procedure: Well Post-Procedure Condition: stable Jed Dsouza MD Pager [phone] * Case Mgmt DC Plan - Xiomara Bragg - 07/02/2018 11:10 AM CDT Plan: DCP Ongoing: SW anticipates pt to DC home with possible HH penidng needs at DC. Intervention: Sw attempted to meet with pt and complete assessment. Pt down in IR for R neph tube placement. Sw to f/u when appropriate. UPDATE:1500 SW attempted to f/u with pt after returning from IR-other discpline visiting with pt, SW to f/u. -Chelsie Bragg LMSW *[id number] * Care Coordination-Inpatient - Barbara Sahni MD - 07/02/2018 1:45 AM CDT Pt assigned to MP E, if questions please page [phone] * ED Notes - Xiomara Langley RN - 07/01/2018 7:24 PM CDT Report given to ELADIO Tyson. * ED Notes - Mary Ann Monroe RN - 07/01/2018 7:08 PM CDT [id number]. Ready. Please call Chelsie @ [phone] for report * ED Notes - Xiomara Langley RN - 07/01/2018 4:51 PM CDT Pt resting comfortably with sister at bedside. Additional pillow provided. Denies any additional needs at this time. * ED Notes - Xiomara Langley RN - 07/01/2018 2:44 PM CDT Pt belongings include: White slip Black dress Jay hose Black bra Cell phone Striped bag (sister will keep) denies the need to document Belongings in labeled bag at bedside. * ED Provider Notes - Darrick Lazo MD - 07/01/2018 2:06 PM CDT Formatting of this note may be different from the original. Aracelis Espinal is a 67 y.o. female. Chief Complaint: Chief Complaint Patient presents with Edema Bilateral leg edema, SOB, no urine output from neph tube History of Present Illness: Aracelis Espinal is a 67 y.o female with PMH significant for b/l hydronephrosis w/ stents, Cr 9.3 (06/03/18), Left nephrostomy tube in place(06/19/18) at [facility]. Patient reports having worsening edema from the waist down, dyspea with exertion, severe fatigue which she attributes to approximately 25 pound weight gain since discharge 06/27/18. Was seen by urology this morning and advised to come to ED for worsening shortness of breath and edema. She reports severe orthopnea causing her to sleep in a recliner for the past 3 days. She denies SOB at rest, chest tightness/pain, cough. Patient reports compression stockings alleviate the pain, otherwise legs burn, sting and feel "hot and prickly" below the knees. Denies any change in color of lower extremities, or rash. She has not been able to fit into shoes since yesterday, has pain on ambulation. Reports having lightheadedness infrequently. Denies any pain, discoloration, drainage at right hemodialysis port, left nephrostomy(1000mL overnight last night). Has difficulty urinating since yesterday, reports dribbling. Denies pain, burning on urination, blood in urine. Review of Systems: Review of Systems Constitutional: Positive for activity change, fatigue and unexpected weight change. Negative for appetite change, chills, diaphoresis and fever. HENT: Negative. Eyes: Negative. Respiratory: Positive for shortness of breath. Negative for cough, chest tightness and wheezing. Cardiovascular: Negative. Gastrointestinal: Negative. Negative for abdominal distention and abdominal pain. Genitourinary: Positive for dysuria (Right ). Musculoskeletal: Negative. Skin: Negative. Neurological: Positive for light-headedness. Negative for syncope and numbness. Psychiatric/Behavioral: Negative. All other systems reviewed and are negative. Allergies: Codeine Past Medical History: Past Medical History: Diagnosis Date Anemia Anxiety disorder Cataract Colon polyps Depression Dyslipidemia Thyroid disorder Ulcer of the stomach and intestine Past Surgical History: Past Surgical History: Procedure Laterality Date HX HYSTERECTOMY 2002 HX CATARACT REMOVAL Bilateral 01/2018 BACK SURGERY 1979; 1998 BUNIONECTOMY HX APPENDECTOMY HX CHOLECYSTECTOMY Pertinent medical/surgical history reviewed Social History: Social History Substance Use Topics Smoking status: Former Smoker Quit date: 06/03/2018 Smokeless tobacco: Never Used Alcohol use No History Drug Use No Family History: Family History Problem Relation Age of Onset Cancer Mother Cancer Sister Vitals: ED Vitals Date and Time T BP P RR SPO2P SPO2 User 07/01/18 1354 -- 117/83 -- 15 PER MINUTE 70 100 % CL 07/01/18 1223 36.5 C (97.7 F) 122/62 75 22 PER MINUTE -- 99 % GRICELDA Physical Exam: Physical Exam Constitutional: She appears well-developed and well-nourished. No distress. HENT: Head: Normocephalic and atraumatic. Eyes: EOM are normal. Cardiovascular: Normal rate and regular rhythm. Pulmonary/Chest: Effort normal and breath sounds normal. No respiratory distress. She has no wheezes. She exhibits no tenderness. Abdominal: Soft. She exhibits distension. Musculoskeletal: She exhibits edema. 3+ pitting pedal edema b/l, 1+ pitting edema b/l LE below knee Neurological: She is alert. Skin: Skin is warm. Laboratory Results: Results for orders placed or performed during the hospital encounter of (from the past 24 hour(s)) CBC AND DIFF Result Value Ref Range White Blood Cells 9.1 4.5 - 11.0 K/UL RBC 3.38 (L) 4.0 - 5.0 M/UL Hemoglobin 9.9 (L) 12.0 - 15.0 GM/DL Hematocrit 29.7 (L) 36 - 45 % MCV 87.7 80 - 100 FL MCH 29.3 26 - 34 PG MCHC 33.4 32.0 - 36.0 G/DL RDW 16.4 (H) 11 - 15 % Platelet Count 425 (H) 150 - 400 K/UL MPV 7.4 7 - 11 FL Neutrophils 69 41 - 77 % Lymphocytes 18 (L) 24 - 44 % Monocytes 9 4 - 12 % Eosinophils 3 0 - 5 % Basophils 1 0 - 2 % Absolute Neutrophil Count 6.30 1.8 - 7.0 K/UL Absolute Lymph Count 1.70 1.0 - 4.8 K/UL Absolute Monocyte Count 0.80 0 - 0.80 K/UL Absolute Eosinophil Count 0.20 0 - 0.45 K/UL Absolute Basophil Count 0.00 0 - 0.20 K/UL COMPREHENSIVE METABOLIC PANEL Result Value Ref Range Sodium 136 (L) 137 - 147 MMOL/L Potassium 4.2 3.5 - 5.1 MMOL/L Chloride 103 98 - 110 MMOL/L Glucose 89 70 - 100 MG/DL Blood Urea Nitrogen 32 (H) 7 - 25 MG/DL Creatinine 1.53 (H) 0.4 - 1.00 MG/DL Calcium 9.6 8.5 - 10.6 MG/DL Total Protein 7.1 6.0 - 8.0 G/DL Total Bilirubin 0.4 0.3 - 1.2 MG/DL Albumin 3.8 3.5 - 5.0 G/DL Alk Phosphatase 48 25 - 110 U/L AST (SGOT) 13 7 - 40 U/L CO2 24 21 - 30 MMOL/L ALT (SGPT) <3 (L) 7 - 56 U/L Anion Gap 9 3 - 12 eGFR Non 34 (L) >60 mL/min eGFR 41 (L) >60 mL/min MAGNESIUM Result Value Ref Range Magnesium 2.0 1.6 - 2.6 mg/dL URINALYSIS DIPSTICK REFLEX TO CULTURE Result Value Ref Range Color,UA YELLOW Turbidity,UA CLEAR CLEAR-CLEAR Specific [place]-Urine 1.010 1.003 - 1.035 pH,UA 6.0 5.0 - 8.0 Protein,UA 1+ (A) NEG-NEG Glucose,UA NEG NEG-NEG Ketones,UA NEG NEG-NEG Bilirubin,UA NEG NEG-NEG Blood,UA 3+ (A) NEG-NEG Urobilinogen,UA NORMAL NORM-NORMAL Nitrite,UA NEG NEG-NEG Leukocytes,UA 2+ (A) NEG-NEG Urine Ascorbic Acid, UA NEG NEG-NEG URINALYSIS MICROSCOPIC REFLEX TO CULTURE Result Value Ref Range WBCs,UA 10-20 0 - 2 /HPF RBCs,UA PACKED 0 - 3 /HPF Comment,UA Urine submitted for reflex culture if criteria are met:WBC>10, positive nitrite and/or >=1+ leukocyte esterase. If quantity is not sufficient, an addendum will follow. MucousUA TRACE Bacteria,UA MODERATE (A) NEG-NEG Squamous Epithelial Cells 0-2 0 - 5 POC TROPONIN Result Value Ref Range Djqvxgyw-P-UEH 0.00 0.00 - 0.05 NG/ML BNP POC ER Result Value Ref Range BNP POC 123.0 (H) 0 - 100 PG/ML Radiology Interpretation: CT ABD/PELV WO CONTRAST Final Result 1. Placement of left percutaneous nephrostomy catheter [...] Paul Culver M.D. on 07/01/2018 4:18 PM. ED Course: Patient was evaluated by resident and attending physicians. - Available records were reviewed. - Vitals were within normal limits - Pertinent exam findings included: 3+ pitting pedal edema b/l, 1+ pitting edema b/l LE below knee - Initial concern was for, but not limited to, obstructive uropathy -CT abdomen/pelvis shows large left sub-capsular hemorrhage compressing left kidney otherwise no acute changes with bilateral stents in place. -Labs significant for anemia (Hbg 9.9, hct 29.7), possible urinary tract infection with UA 3+ blood, 2+ leukocytes, MOD bacteria, BNP 123, BUN (32), Cr. (1.53) - Dispo: Patient medically stable upon admission to medicine. urology recommended a right nephrostomy tube. MDM Reviewed: previous chart, nursing note and vitals Reviewed previous: labs and CT scan Clinical Impression: Final diagnoses: Obstructive uropathy Procedure Notes: None Procedures Emily Fishman MD PGY1 Family Medicine Attestation / Supervision Note concerning Aracelis Espinal: I personally performed the diamond portions of the E/M visit, discussed case with resident and concur with resident documentation of history, physical exam, assessment, and treatment plan unless otherwise noted. Darrick Lazo MD * ED Notes - Theresa Lazar RN - 07/01/2018 1:35 PM CDT Pt arrives to ED [address] with several complaints. Pt reports she spent three weeks at [facility] in [place] with renal failure and received dialysis. Reports she had left nephrostomy tube placed and indwelling joshi catheter. Reports they DC'd the joshi on and she was able to urinate afterward. Left nephro tube remains in place. Reports she began having SOA, increased bilateral lower extremity swelling, and virtually no urine from the right kidney except "trickles." Reports she has normal output from the nephrostomy tube (1000mL overnight last night). Reports she was seen in urology today and was told to come to ED because of the shortness of breath and increase in swelling. Denies chest pain. Also denies urinary symptoms. No CVA tenderness of the right side and no suprapubic tenderness. Bladder nondistended. Lungs are clear with diminished bases. Bilateral lower extremities with 3+ edema. Pulses intact. Pt in no acute distress. Report to vishnu Holguin RN. Awaiting provider evaluation. * ED Notes - Mary Ann Monroe RN - 07/01/2018 1:22 PM CDT Bed: BUENROSTRO 18 Expected date: Expected time: Means of arrival: Comments: in this encounter Plan of Treatment Date Type Specialty Care Team Description 08/23/2018 Surgery Perry Moseley MD CYSTOURETHROSCOPY WITH [address] URETERAL CATHETERIZATION [address] WITH/ WITHOUT IRRIGATION/ [place] [address] INSTILLATION/ [phone] URETEROPYELOGRAPHY 08/23/2018 Procedure Pass 08/23/2018 Hospital Perry Moseley MD Bilateral ureteral Encounter [address] obstruction [place] [address] [place] [address] [phone] Name Priority Associated Diagnoses Order Schedule BASIC METABOLIC PANEL Routine Obstructive uropathy Expected: 07/21/2018 Hydronephrosis, (Approximate), Expires: unspecified 07/07/2019 hydronephrosis type Bilateral leg edema Other hypervolemia Acute deep vein thrombosis (DVT) of distal end of right lower extremity (HCC) as of this encounter Procedures Procedure Name Priority Date/Time Associated Diagnosis Comments CBC AND DIFF Routine 07/08/2018 Results for this 5:46 AM CDT procedure are in the results section. COMPREHENSIVE METABOLIC Routine 07/08/2018 Results for this [...] ECG 12-LEAD STAT 07/01/2018 2:25 PM CDT CBC AND DIFF STAT 07/01/2018 Results for this 1:35 PM CDT procedure are in the results section. MAGNESIUM STAT 07/01/2018 Results for this 1:35 PM CDT procedure are in the results section. COMPREHENSIVE METABOLIC STAT 07/01/2018 Results for this PANEL 1:35 PM CDT procedure are in the results section. in this encounter Results * COMPREHENSIVE METABOLIC PANEL (07/08/2018 5:46 AM) Sodium 136 (L) 137 - 147 MMOL/L [...] Organization Address City/State/Zipcode Phone Number [facility] [address] [place] [address] * CBC AND DIFF (07/08/2018 5:46 AM) White Blood Cells 8.4 4.5 - 11.0 [...] Blood Performing Organization Address City/State/Zipcode Phone Number [facility] [address] [place] [address] * COMPREHENSIVE METABOLIC PANEL (07/07/2018 6:06 AM) Sodium 134 (L) 137 - 147 MMOL/L [facility] Potassium 3.4 (L) 3.5 - 5.1 MMOL/L [facility] Chloride 98 98 - 110 MMOL/L [facility] Glucose 108 (H) 70 - 100 MG/DL [facility] Blood Urea Nitrogen 36 (H) 7 - 25 MG/DL [facility] Creatinine 1.52 (H) 0.4 - 1.00 MG/DL [facility] Calcium 9.4 8.5 - 10.6 MG/DL [facility] Total Protein 6.9 6.0 - 8.0 G/DL [facility] Total Bilirubin 0.4 0.3 - 1.2 MG/DL [facility] Albumin 3.6 3.5 - 5.0 G/DL [facility] Alk Phosphatase 54 25 - 110 U/L [facility] AST (SGOT) 12 7 - 40 U/L [facility] CO2 27 21 - 30 MMOL/L [facility] ALT (SGPT) 5 (L) 7 - 56 U/L [facility] Anion Gap 9 3 - 12 [facility] eGFR Non 34 (L) >60 mL/min [facility] Comment: The eGFR is not validated for use in drug dosing adjustments.Continue to use estimated creatinine clearance per dosing reference text.Please contact the Clinical Pharmacist for questions. eGFR 42 (L) >60 mL/min [facility] Comment: The eGFR is not validated for use in drug dosing adjustments.Continue to use estimated creatinine clearance per dosing reference text.Please contact the Clinical Pharmacist for questions. Specimen Blood Performing Organization Address City/[facility]/Zipcode Phone Number [facility] [address] [place] [address] * CBC AND DIFF (07/07/2018 6:06 AM) White Blood Cells 8.7 4.5 - 11.0 K/UL [facility] RBC 3.34 (L) 4.0 - 5.0 M/UL [facility] Hemoglobin 9.5 (L) 12.0 - 15.0 GM/DL [facility] Hematocrit 29.2 (L) 36 - 45 % [facility] MCV 87.5 80 - 100 FL [facility] MCH 28.6 26 - 34 PG [facility] MCHC 32.6 32.0 - 36.0 G/DL [facility] RDW 15.8 (H) 11 - 15 % [facility] Platelet Count 377 150 - 400 K/UL [facility] MPV 7.1 7 - 11 FL [facility] Neutrophils 72 41 - 77 % [facility] Lymphocytes 17 (L) 24 - 44 % [facility] Monocytes 8 4 - 12 % [facility] Eosinophils 2 0 - 5 % [facility] Basophils 1 0 - 2 % [facility] Absolute Neutrophil Count 6.30 1.8 - 7.0 K/UL [facility] Absolute Lymph Count 1.50 1.0 - 4.8 K/UL [facility] Absolute Monocyte Count 0.70 0 - 0.80 K/UL [facility] Absolute Eosinophil Count 0.20 0 - 0.45 K/UL [facility] Absolute Basophil Count 0.00 0 - 0.20 K/UL [facility] Specimen Blood Performing Organization Address City/[facility]/Zipcode Phone Number [facility] [address] [place] [address] * COMPREHENSIVE METABOLIC PANEL (07/06/2018 4:13 AM) Sodium 134 (L) 137 - 147 MMOL/L [facility] Potassium 3.6 3.5 - 5.1 MMOL/L [facility] Chloride 99 98 - 110 MMOL/L [facility] Glucose 102 (H) 70 - 100 MG/DL [facility] Blood Urea Nitrogen 36 (H) 7 - 25 MG/DL [facility] Creatinine 1.41 (H) 0.4 - 1.00 MG/DL [facility] Calcium 9.4 8.5 - 10.6 MG/DL [facility] Total Protein 6.6 6.0 - 8.0 G/DL [facility] Total Bilirubin 0.4 0.3 - 1.2 MG/DL [facility] Albumin 3.5 3.5 - 5.0 G/DL [facility] Alk Phosphatase 49 25 - 110 U/L [facility] AST (SGOT) 12 7 - 40 U/L [facility] CO2 26 21 - 30 MMOL/L [facility] ALT (SGPT) 4 (L) 7 - 56 U/L [facility] Anion Gap 9 3 - 12 [facility] eGFR Non 37 (L) >60 mL/min [facility] Comment: The eGFR is not validated for use in drug dosing adjustments.Continue to use estimated creatinine clearance per dosing reference text.Please contact the Clinical Pharmacist for questions. eGFR 45 (L) >60 mL/min [facility] Comment: The eGFR is not validated for use in drug dosing adjustments.Continue to use estimated creatinine clearance per dosing reference text.Please contact the Clinical Pharmacist for questions. Specimen Blood Performing Organization Address City/State/Zipcode Phone Number [facility] [address] [place] [address] * CBC AND DIFF (07/06/2018 4:13 AM) White Blood Cells 8.3 4.5 - 11.0 K/UL [facility] RBC 3.19 (L) 4.0 - 5.0 M/UL [facility] Hemoglobin 9.4 (L) 12.0 - 15.0 GM/DL [facility] Hematocrit 27.8 (L) 36 - 45 % [facility] MCV 87.2 80 - 100 FL [facility] MCH 29.3 26 - 34 PG [facility] MCHC 33.6 32.0 - 36.0 G/DL [facility] RDW 15.9 (H) 11 - 15 % [facility] Platelet Count 383 150 - 400 K/UL [facility] MPV 7.5 7 - 11 FL [facility] Neutrophils 68 41 - 77 % [facility] Lymphocytes 20 (L) 24 - 44 % [facility] Monocytes 8 4 - 12 % [facility] Eosinophils 3 0 - 5 % [facility] Basophils 1 0 - 2 % [facility] Absolute Neutrophil Count 5.60 1.8 - 7.0 K/UL [facility] Absolute Lymph Count 1.70 1.0 - 4.8 K/UL [facility] Absolute Monocyte Count 0.70 0 - 0.80 K/UL [facility] Absolute Eosinophil Count 0.20 0 - 0.45 K/UL [facility] Absolute Basophil Count 0.00 0 - 0.20 K/UL [facility] Specimen Blood Performing Organization Address City/State/Zipcode Phone Number [facility] [address] [place] [address] * COMPREHENSIVE METABOLIC PANEL (07/05/2018 5:52 AM) Sodium 135 (L) 137 - 147 MMOL/L [facility] Potassium 3.8 3.5 - 5.1 MMOL/L [facility] Chloride 100 98 - 110 MMOL/L [facility] Glucose 110 (H) 70 - 100 MG/DL [facility] Blood Urea Nitrogen 33 (H) 7 - 25 MG/DL [facility] Creatinine 1.47 (H) 0.4 - 1.00 MG/DL [facility] Calcium 9.3 8.5 - 10.6 MG/DL [facility] Total Protein 6.5 6.0 - 8.0 G/DL [facility] Total Bilirubin 0.4 0.3 - 1.2 MG/DL [facility] Albumin 3.4 (L) 3.5 - 5.0 G/DL [facility] Alk Phosphatase 48 25 - 110 U/L [facility] AST (SGOT) 10 7 - 40 U/L [facility] CO2 27 21 - 30 MMOL/L [facility] ALT (SGPT) 4 (L) 7 - 56 U/L [facility] Anion Gap 8 3 - 12 [facility] eGFR Non 36 (L) >60 mL/min [facility] Comment: The eGFR is not validated for use in drug dosing adjustments.Continue to use estimated creatinine clearance per dosing reference text.Please contact the Clinical Pharmacist for questions. eGFR 43 (L) >60 mL/min [facility] Comment: The eGFR is not validated for use in drug dosing adjustments.Continue to use estimated creatinine clearance per dosing reference text.Please contact the Clinical Pharmacist for questions. Specimen Blood Performing Organization Address City/[facility]/Zipcode Phone Number [facility] [address] [place] [address] * CBC AND DIFF (07/05/2018 5:52 AM) White Blood Cells 8.2 4.5 - 11.0 K/UL [facility] RBC 3.46 (L) 4.0 - 5.0 M/UL [facility] Hemoglobin 10.2 (L) 12.0 - 15.0 GM/DL [facility] Hematocrit 29.7 (L) 36 - 45 % [facility] MCV 85.7 80 - 100 FL [facility] MCH 29.5 26 - 34 PG [facility] MCHC 34.4 32.0 - 36.0 G/DL [facility] RDW 15.6 (H) 11 - 15 % [facility] Platelet Count 374 150 - 400 K/UL [facility] MPV 6.8 (L) 7 - 11 FL [facility] Neutrophils 69 41 - 77 % [facility] Lymphocytes 19 (L) 24 - 44 % [facility] Monocytes 8 4 - 12 % [facility] Eosinophils 3 0 - 5 % [facility] Basophils 1 0 - 2 % [facility] Absolute Neutrophil Count 5.70 1.8 - 7.0 K/UL [facility] Absolute Lymph Count 1.60 1.0 - 4.8 K/UL [facility] Absolute Monocyte Count 0.70 0 - 0.80 K/UL [facility] Absolute Eosinophil Count 0.20 0 - 0.45 K/UL [facility] Absolute Basophil Count 0.10 0 - 0.20 K/UL [facility] Specimen Blood Performing Organization Address City/[facility]/Zipcode Phone Number [facility] [address] [place] [address] * IR CENTRAL VENOUS CATHETER (07/04/2018 4:45 [...] PM. Narrative Performed At TUNNELED CATHETER REMOVAL RAD RESULTS CLINICAL INDICATION: Completion of therapy. [...] of tunneled right IJ catheter as described. Gilberto Quiñones M.D, the attending radiologist, was present [...] venacavogram as described above. [facility] RAD RESULTS Lam Quiñones M.D, the attending radiologist, was present [...] needle. Access was maintained with a 6 Mosotho sheath. A 5 Mosotho pigtail catheter was advanced over a 0.035 [...] needle. Access was maintained with a 6 Mosotho sheath. A 5 Mosotho pigtail catheter was advanced over a 0.035 [...] on 07/04/2018 9:13 AM. Performing Organization Address City/State/Zipcode Phone Number [facility] RAD RESULTS * COMPREHENSIVE METABOLIC PANEL (07/04/2018 6:03 AM) Sodium 132 (L) 137 - 147 MMOL/L [facility] Potassium 4.1 3.5 - 5.1 MMOL/L [facility] Chloride 99 98 - 110 MMOL/L [facility] Glucose 106 (H) 70 - 100 MG/DL [facility] Blood Urea Nitrogen 37 (H) 7 - 25 MG/DL [facility] Creatinine 1.58 (H) 0.4 - 1.00 MG/DL [facility] Calcium 9.3 8.5 - 10.6 MG/DL [facility] Total Protein 6.6 6.0 - 8.0 G/DL [facility] Total Bilirubin 0.4 0.3 - 1.2 MG/DL [facility] Albumin 3.4 (L) 3.5 - 5.0 G/DL [facility] Alk Phosphatase 46 25 - 110 U/L [facility] AST (SGOT) 11 7 - 40 U/L [facility] CO2 27 21 - 30 MMOL/L [facility] ALT (SGPT) 4 (L) 7 - 56 U/L [facility] Anion Gap 6 3 - 12 [facility] eGFR Non 33 (L) >60 mL/min [facility] Comment: The eGFR is not validated for use in drug dosing adjustments.Continue to use estimated creatinine clearance per dosing reference text.Please contact the Clinical Pharmacist for questions. eGFR 40 (L) >60 mL/min [facility] Comment: The eGFR is not validated for use in drug dosing adjustments.Continue to use estimated creatinine clearance per dosing reference text.Please contact the Clinical Pharmacist for questions. Specimen Blood Performing Organization Address City/State/Zipcode Phone Number [facility] [address] [place] [address] * CBC AND DIFF (07/04/2018 6:03 AM) White Blood Cells 8.1 4.5 - 11.0 K/UL [facility] RBC 3.28 (L) 4.0 - 5.0 M/UL [facility] Hemoglobin 9.6 (L) 12.0 - 15.0 GM/DL [facility] Hematocrit 28.7 (L) 36 - 45 % [facility] MCV 87.4 80 - 100 FL [facility] MCH 29.3 26 - 34 PG [facility] MCHC 33.5 32.0 - 36.0 G/DL [facility] RDW 16.0 (H) 11 - 15 % [facility] Platelet Count 385 150 - 400 K/UL [facility] MPV 7.0 7 - 11 FL [facility] Neutrophils 69 41 - 77 % [facility] Lymphocytes 19 (L) 24 - 44 % [facility] Monocytes 9 4 - 12 % [facility] Eosinophils 3 0 - 5 % [facility] Basophils 0 0 - 2 % [facility] Absolute Neutrophil Count 5.60 1.8 - 7.0 K/UL [facility] Absolute Lymph Count 1.50 1.0 - 4.8 K/UL [facility] Absolute Monocyte Count 0.70 0 - 0.80 K/UL [facility] Absolute Eosinophil Count 0.20 0 - 0.45 K/UL [facility] Absolute Basophil Count 0.00 0 - 0.20 K/UL [facility] Specimen Blood Performing Organization Address City/[facility]/Zipcode Phone Number [facility] [address] [place] [address] * PROTEIN/CR RATIO,UR RAN (07/03/2018 2:00 PM) Protein, Random 10 MG/DL [facility] Creatinine, Random 32 MG/DL [facility] Protein/CR ratio 0.3 [facility] Specimen Urine - Urine Performing Organization Address [facility] Phone Number [facility] [address] [place] [address] * COMPREHENSIVE METABOLIC PANEL (07/03/2018 6:43 AM) Sodium 138 137 - 147 MMOL/L [facility] Potassium 4.5 3.5 - 5.1 MMOL/L [facility] Chloride 103 98 - 110 MMOL/L [facility] Glucose 95 70 - 100 MG/DL [facility] Blood Urea Nitrogen 33 (H) 7 - 25 MG/DL [facility] Creatinine 1.55 (H) 0.4 - 1.00 MG/DL [facility] Calcium 9.3 8.5 - 10.6 MG/DL [facility] Total Protein 6.3 6.0 - 8.0 G/DL [facility] Total Bilirubin 0.4 0.3 - 1.2 MG/DL [facility] LAB Albumin 3.3 (L) 3.5 - 5.0 G/DL [facility] Alk Phosphatase 50 25 - 110 U/L [facility] AST (SGOT) 10 7 - 40 U/L [facility] CO2 27 21 - 30 MMOL/L [facility] ALT (SGPT) 6 (L) 7 - 56 U/L [facility] Anion Gap 8 3 - 12 [facility] eGFR Non 34 (L) >60 mL/min [facility] Comment: The eGFR is not validated for use in drug dosing adjustments.Continue to use estimated creatinine clearance per dosing reference text.Please contact the Clinical Pharmacist for questions. eGFR 41 (L) >60 mL/min [facility] Comment: The eGFR is not validated for use in drug dosing adjustments.Continue to use estimated creatinine clearance per dosing reference text.Please contact the Clinical Pharmacist for questions. Specimen Blood Performing Organization Address City/[facility]/Zipcode Phone Number [facility] [address] [place] [address] * CBC AND DIFF (07/03/2018 6:43 AM) White Blood Cells 7.3 4.5 - 11.0 K/UL [facility] RBC 3.22 (L) 4.0 - 5.0 M/UL [facility] Hemoglobin 9.1 (L) 12.0 - 15.0 GM/DL [facility] Hematocrit 28.0 (L) 36 - 45 % [facility] MCV 87.0 80 - 100 FL [facility] MCH 28.1 26 - 34 PG [facility] MCHC 32.3 32.0 - 36.0 G/DL [facility] RDW 16.1 (H) 11 - 15 % [facility] Platelet Count 379 150 - 400 K/UL [facility] MPV 6.7 (L) 7 - 11 FL [facility] Neutrophils 70 41 - 77 % [facility] Lymphocytes 18 (L) 24 - 44 % [facility] Monocytes 9 4 - 12 % [facility] Eosinophils 3 0 - 5 % [facility] Basophils 0 0 - 2 % [facility] Absolute Neutrophil Count 5.10 1.8 - 7.0 K/UL [facility] Absolute Lymph Count 1.30 1.0 - 4.8 K/UL [facility] Absolute Monocyte Count 0.70 0 - 0.80 K/UL [facility] Absolute Eosinophil Count 0.20 0 - 0.45 K/UL [facility] Absolute Basophil Count 0.00 0 - 0.20 K/UL [facility] Specimen Blood Performing Organization Address City/[facility]/Zipcode Phone Number [facility] [address] [place] [address] * IRON + BINDING CAPACITY + %SAT+ FERRITIN (07/03/2018 6:43 AM) Iron 38 (L) 50 - 160 MCG/DL [facility] Iron Binding-TIBC 285 270 - 380 MCG/DL [facility] % Saturation 13 (L) 28 - 42 % [facility] Ferritin 590 (H) 10 - 200 NG/ML [facility] Specimen Blood Performing Organization Address City/State/Zipcode Phone Number MAIN LAB [address] [place] [address] * IR ASPIRATION/DRAIN (07/02/2018 12:13 PM) Impressions [...] set was then removed and an 8 Mosotho pigtail catheter was advanced into the renal pelvis. The [place] loop was formed. Contrast was instilled into [...] set was then removed and an 8 [place] pigtail catheter was advanced into the renal pelvis. The [place] loop was formed. Contrast was instilled into [...] OTHER OUTSIDE LAB S' Cardiology Ultrasound Siemens [id number] OTHER OUTSIDE LAB Machine Left Ventricle Mass [...] systolic PA pressure=18 mmHg Performing Organization Address City/State/Zipcode Phone Number OTHER OUTSIDE LAB * COMPREHENSIVE METABOLIC PANEL (07/02/2018 6:18 AM) Sodium 135 (L) 137 - 147 MMOL/L [facility] Potassium 4.7 3.5 - 5.1 MMOL/L [facility] Chloride 105 98 - 110 MMOL/L [facility] Glucose 94 70 - 100 MG/DL [facility] Blood Urea Nitrogen 34 (H) 7 - 25 MG/DL [facility] Creatinine 1.58 (H) 0.4 - 1.00 MG/DL [facility] Calcium 9.3 8.5 - 10.6 MG/DL [facility] Total Protein 6.5 6.0 - 8.0 G/DL [facility] Total Bilirubin 0.4 0.3 - 1.2 MG/DL [facility] Albumin 3.4 (L) 3.5 - 5.0 G/DL [facility] Alk Phosphatase 47 25 - 110 U/L [facility] AST (SGOT) 12 7 - 40 U/L [facility] CO2 24 21 - 30 MMOL/L [facility] ALT (SGPT) 4 (L) 7 - 56 U/L [facility] Anion Gap 6 3 - 12 [facility] eGFR Non 33 (L) >60 mL/min [facility] Comment: The eGFR is not validated for use in drug dosing adjustments.Continue to use estimated creatinine clearance per dosing reference text.Please contact the Clinical Pharmacist for questions. eGFR 40 (L) >60 mL/min [facility] Comment: The eGFR is not validated for use in drug dosing adjustments.Continue to use estimated creatinine clearance per dosing reference text.Please contact the Clinical Pharmacist for questions. Specimen Blood Performing Organization Address [facility]/Zipcode Phone Number [facility] [address] [place] [address] * CBC AND DIFF (07/02/2018 6:18 AM) White Blood Cells 7.9 4.5 - 11.0 K/UL [facility] RBC 3.13 (L) 4.0 - 5.0 M/UL [facility] Hemoglobin 8.9 (L) 12.0 - 15.0 GM/DL [facility] Hematocrit 27.3 (L) 36 - 45 % [facility] MCV 87.2 80 - 100 FL [facility] MCH 28.5 26 - 34 PG [facility] MCHC 32.7 32.0 - 36.0 G/DL [facility] RDW 16.0 (H) 11 - 15 % [facility] Platelet Count 378 150 - 400 K/UL [facility] MPV 7.0 7 - 11 FL [facility] Neutrophils 72 41 - 77 % [facility] Lymphocytes 16 (L) 24 - 44 % [facility] Monocytes 8 4 - 12 % [facility] Eosinophils 3 0 - 5 % [facility] Basophils 1 0 - 2 % [facility] Absolute Neutrophil Count 5.70 1.8 - 7.0 K/UL [facility] Absolute Lymph Count 1.30 1.0 - 4.8 K/UL [facility] Absolute Monocyte Count 0.70 0 - 0.80 K/UL [facility] Absolute Eosinophil Count 0.20 0 - 0.45 K/UL [facility] Absolute Basophil Count 0.00 0 - 0.20 K/UL [facility] Specimen Blood Performing Organization Address [facility]/Zipcode Phone Number [facility] [address] [place] [address] * TSH WITH FREE T4 REFLEX (07/02/2018 6:18 AM) TSH 2.360 0.35 - 5.00 MCU/ML [facility] Specimen Blood Performing Organization Address City/[facility]/Zipcode Phone Number [facility] [address] [place] [address] * BNP (B-TYPE NATRIURETIC PEPTI) (07/02/2018 6:18 AM) B Type Natriuretic 71.0 0 - 100 PG/ML [facility] Peptide Specimen Blood Performing Organization Address [facility]/Zipcode Phone Number MAIN LAB [address] [place] [address] * PHOSPHORUS (07/02/2018 6:18 AM) Phosphorus 4.9 (H) 2.0 - 4.0 MG/DL MAIN LAB Specimen Blood Performing Organization Address [facility] Phone Number MAIN LAB [address] [place] [address] * MAGNESIUM (07/02/2018 6:18 AM) Magnesium 2.0 1.6 - 2.6 mg/dL MAIN LAB Specimen Blood Performing Organization Address [facility] Phone Number MAIN LAB [address] [place] [address] * CHEST SINGLE VIEW (07/02/2018 6:07 AM) [...] RAD RESULTS * US DOPPLER VENOUS W TIFF MODI (07/01/2018 10:23 PM) Impressions Performed At 1.Occlusive, subacute appearing thrombus within one of the duplicated right [facility] RAD RESULTS popliteal veins. 2.No evidence of femoral/popliteal DVT in the left lower extremity. 3.Small right Fair's cyst redemonstrated. 4.Moderate bilateral subcutaneous edema, mainly at the calves. 5.Mildly prominent, reactive appearing bilateral inguinal lymph nodes. Preliminary findings were discussed with Jennifer Esposito MD at 10:44 PM on 07/01/2018 By [...] the left lower extremity. 3. Small right Fair's cyst redemonstrated. 4. Moderate bilateral subcutaneous edema, mainly at the calves. 5. Mildly prominent, reactive appearing bilateral inguinal lymph nodes. Preliminary findings were discussed with Jennifer Esposito MD at 10:44 PM on 2017 By [...] on 07/01/2018 4:18 PM. Performing Organization Address [facility] Phone Number RAD RESULTS * BNP POC ER (07/01/2018 2:31 PM) BNP POC 123.0 (H) 0 - 100 PG/ML MAIN LAB Performing Organization Address City/[facility]/[employer] Phone Number MAIN LAB [address] [place] [address] * POC TROPONIN (07/01/2018 2:31 PM) Ntzxfsuj-R-UZD 0.00 0.00 - 0.05 NG/ML MAIN LAB Performing Organization Address [facility] Phone Number MAIN LAB [address] [place] [address] * CULTURE-URINE W/SENSITIVITY (07/01/2018 2:30 PM) Battery Name URINE CULTURE [facility] Specimen Description URINE [facility] Special Requests NONE [facility] Culture NO GROWTH [facility] Report Status FINAL [facility] 07/02/2018 Specimen Urine Performing Organization Address [facility] Phone Number [facility] [address] [place] [address] * UA REFLEX CULTURE LABEL (07/01/2018 2:30 PM) UA Reflex Culture LAB LABEL [facility] Specimen Urine Performing Organization Address [facility] Phone Number [facility] [address] [place] [address] * URINALYSIS MICROSCOPIC REFLEX TO CULTURE (07/01/2018 [...] MAIN LAB Specimen Urine Performing Organization Address [facility] Phone Number [facility] [address] [place] [address] * URINALYSIS DIPSTICK REFLEX TO CULTURE (07/01/2018 2:30 PM) Color,UA YELLOW [facility] Turbidity,UA CLEAR CLEAR-CLEAR [facility] Specific [place]-Urine 1.010 1.003 - 1.035 [facility] [...] MAIN LAB Specimen Urine Performing Organization Address [facility]/Zipcode Phone Number MAIN LAB [address] [place] [address] * MAGNESIUM (07/01/2018 1:35 PM) Magnesium 2.0 1.6 - 2.6 mg/dL [facility] Specimen Blood Performing Organization Address [facility] Phone Number MAIN LAB [address] [place] [address] * COMPREHENSIVE METABOLIC PANEL (07/01/2018 1:35 PM) Sodium 136 (L) 137 - 147 MMOL/L [facility] Potassium 4.2 3.5 - 5.1 MMOL/L [facility] Chloride 103 98 - 110 MMOL/L [facility] Glucose 89 70 - 100 MG/DL [facility] Blood Urea Nitrogen 32 (H) 7 - 25 MG/DL [facility] Creatinine 1.53 (H) 0.4 - 1.00 MG/DL [facility] Calcium 9.6 8.5 - 10.6 MG/DL [facility] Total Protein 7.1 6.0 - 8.0 G/DL [facility] Total Bilirubin 0.4 0.3 - 1.2 MG/DL [facility] Albumin 3.8 3.5 - 5.0 G/DL [facility] Alk Phosphatase 48 25 - 110 U/L [facility] AST (SGOT) 13 7 - 40 U/L [facility] CO2 24 21 - 30 MMOL/L [facility] ALT (SGPT) <3 (L) 7 - 56 U/L [facility] Anion Gap 9 3 - 12 [facility] eGFR Non 34 (L) >60 mL/min [facility] Comment: The eGFR is not validated for use in drug dosing adjustments.Continue to use estimated creatinine clearance per dosing reference text.Please contact the Clinical Pharmacist for questions. eGFR 41 (L) >60 mL/min [facility] Comment: The eGFR is not validated for use in drug dosing adjustments.Continue to use estimated creatinine clearance per dosing reference text.Please contact the Clinical Pharmacist for questions. Specimen Blood Performing Organization Address [facility]/Zipcode Phone Number MAIN LAB [address] [place] [address] * CBC AND DIFF (07/01/2018 1:35 PM) White Blood Cells 9.1 4.5 - 11.0 K/UL [facility] RBC 3.38 (L) 4.0 - 5.0 M/UL [facility] Hemoglobin 9.9 (L) 12.0 - 15.0 GM/DL [facility] Hematocrit 29.7 (L) 36 - 45 % [facility] MCV 87.7 80 - 100 FL [facility] MCH 29.3 26 - 34 PG [facility] MCHC 33.4 32.0 - 36.0 G/DL [facility] RDW 16.4 (H) 11 - 15 % [facility] Platelet Count 425 (H) 150 - 400 K/UL [facility] MPV 7.4 7 - 11 FL [facility] Neutrophils 69 41 - 77 % [facility] Lymphocytes 18 (L) 24 - 44 % [facility] Monocytes 9 4 - 12 % [facility] Eosinophils 3 0 - 5 % [facility] Basophils 1 0 - 2 % [facility] Absolute Neutrophil Count 6.30 1.8 - 7.0 K/UL [facility] Absolute Lymph Count 1.70 1.0 - 4.8 K/UL [facility] Absolute Monocyte Count 0.80 0 - 0.80 K/UL [facility] Absolute Eosinophil Count 0.20 0 - 0.45 K/UL [facility] Absolute Basophil Count 0.00 0 - 0.20 K/UL [facility] Specimen Blood Performing Organization Address City/State/Zipcode Phone Number MAIN LAB [address] [place] [address] in this encounter Visit Diagnoses Diagnosis Hydronephrosis, unspecified hydronephrosis type - Primary Obstructive uropathy Urinary obstruction, unspecified Bilateral leg edema Edema Other hypervolemia Acute deep vein thrombosis (DVT) of distal end of right lower extremity (HCC) Anxiety Anxiety state, unspecified Major depressive disorder with single episode, in remission (HCC) Gastroesophageal reflux disease without esophagitis Esophageal reflux Hypothyroidism due to acquired atrophy of thyroid Vitamin D deficiency Unspecified vitamin D deficiency MEE (acute kidney injury) (HCC) Acute kidney failure, unspecified Pyuria Other nonspecific finding on examination of urine Debility Debility, unspecified Obesity (BMI 30-39.9) Obesity, unspecified Admitting Diagnoses Diagnosis Obstructive uropathy Bilateral leg edema Administered Medications Medication Order MAR Action Action Date Dose Rate Site acetaminophen (TYLENOL) tablet 650 mg Given 07/01/2018 650 mg 650 mg, Oral, ONCE, 1 dose, Mon 18 16:48 CDT at 1645, TOTAL ACETAMINOPHEN DOSE NOT TO EXCEED 4GM DAILY acetaminophen (TYLENOL) tablet 650 mg Given 07/06/2018 650 mg 650 mg, Oral, EVERY 6 HOURS PRN, 10:28 CDT Starting Sun07/01/18 at 1950, Until Sun07/08/18 at 1513, Pain non-opioid: may be used alone or in combination with opioid analgesia Given 07/06/2018 650 mg 18:15 CDT Given 07/07/2018 650 mg 12:19 CDT ANTICOAG SODIUM CITRATE SOLN 5ML (Cabinet Override) NOW, 1 dose, Sun07/02/18 at 1415, Created by cabinet override NOTE: This is a HIGH ALERT Medication. anticoagulant sodium citrate solution Given 07/02/2018 3.8 mL 1-5 mL 14:51 CDT 1-5 mL, Intra-catheter, ONCE, 1 dose, Sun07/02/18 at 1415, NOTE: This is a HIGH ALERT Medication. apixaban (ELIQUIS) tablet 5 mg Given 07/07/2018 5 mg 5 mg, Oral, TWICE DAILY, First dose on 08:34 CDT 07/05/18 at 2100, Until Discontinued, May crush 5 mg or 2.5 mg tablets and suspend in 60 mL of D5W followed by immediate delivery through a nasogastric tube. No information regarding administration of suspension by mouth is available. NOTE: This is a HIGH ALERT Medication. Given 07/07/2018 5 mg 20:28 CDT Given 07/08/2018 5 mg 10:32 CDT ertapenem (INVANZ) IVP 1 g Given 07/01/2018 1 g 1 g, Intravenous, 10 mL, Administer over 20:24 CDT 5 Minutes, EVERY 24 HOURS, First dose on Sun07/01/18 at 2000, Until Discontinued, Reconstitute each 1 g vial with 10 mL sterile water for injection, administer IV-Push over 5 minutes fentaNYL citrate PF (SUBLIMAZE) Given 07/02/2018 50 mcg injection 25-50 mcg 11:46 CDT 25-50 mcg, Intravenous, ONCE, 1 dose, Sun07/02/18 at 1115, Pre-Procedure (IR) fentaNYL citrate PF (SUBLIMAZE) Given 07/04/2018 50 mcg injection 50 mcg 08:39 CDT 50 mcg, Intravenous, ONCE, 1 dose, [facility] 07/04/18 at 0745 fentaNYL citrate PF (SUBLIMAZE) Given 07/02/2018 50 mcg injection 11:59 CDT INTRA-PROCEDURE MED, Starting 07/02/18 at 1159, Until Sun07/02/18 at 1159 fentaNYL citrate PF (SUBLIMAZE) Given 07/04/2018 50 mcg injection 08:51 CDT INTRA-PROCEDURE MED, Starting [facility] 07/04/18 at 0851, Until Ledy 07/04/18 at 0851 furosemide (LASIX) injection 40 mg Given 07/02/2018 40 mg 40 mg, Intravenous, ONCE, 1 dose, Sun 15:36 CDT 07/02/18 at 1430, PROTECT FROM LIGHT furosemide (LASIX) injection 40 mg Given 07/03/2018 40 mg 40 mg, Intravenous, ONCE, 1 dose, Sun 14:01 CDT 07/03/18 at 1345, PROTECT FROM LIGHT furosemide (LASIX) injection 40 mg Given 07/04/2018 40 mg 40 mg, Intravenous, DAILY, First dose on 11:22 CDT [facility] 07/04/18 at 1115, Until Discontinued, PROTECT FROM LIGHT Given 07/05/2018 40 mg 08:17 CDT Given 07/06/2018 40 mg 08:11 CDT furosemide (LASIX) injection 40 mg Given 07/06/2018 40 mg 40 mg, Intravenous, TWICE DAILY, First 18:12 CDT dose on 07/06/18 at 1730, Until Discontinued, PROTECT FROM LIGHT furosemide (LASIX) injection 40 mg Given 07/07/2018 40 mg 40 mg, Intravenous, DAILY, First dose on 08:34 CDT 07/07/18 at 0900, Until Discontinued, PROTECT FROM LIGHT Given 07/08/2018 40 mg 10:31 CDT furosemide (LASIX) tablet 40 mg Given 07/02/2018 40 mg 40 mg, Oral, EVERY MORNING, First dose 08:11 CDT on 07/01/18 at 2000, Until Discontinued Given 07/03/2018 40 mg 08:31 CDT HYDROcodone/acetaminophen (NORCO) 5/325 Given 07/04/2018 1 tablet mg tablet 1-2 tablet 20:01 CDT 1-2 tablet, Oral, EVERY 6 HOURS PRN, Starting 07/01/18 at 1846, Until 07/08/18 at 1513, Pain PO, TOTAL ACETAMINOPHEN DOSE NOT TO EXCEED 4GM DAILY NOTE: This is a HIGH ALERT Medication. Given 07/07/2018 1 tablet 17:00 CDT Given 07/08/2018 1 tablet 10:40 CDT iopamidol 300 (ISOVUE-300) injection 20 Given 07/02/2018 20 mL mL 12:30 CDT 20 mL, Urethral, ONCE, 1 dose, 07/02/18 at 1230, NOTE: This is a HIGH ALERT Medication. levothyroxine (SYNTHROID) tablet 50 mcg Given 07/06/2018 50 mcg 50 mcg, Oral, DAILY, First dose on Tue 08:11 CDT 07/02/18 at 0700, Until Discontinued, Give 1 hour before a meal. If patient is receiving tube feedings, hold tube feed 1hr before and 1hr after dose. Given 07/07/2018 50 mcg 08:34 CDT Given 07/08/2018 50 mcg 10:31 CDT midazolam (VERSED) injection 1 mg Given 07/02/2018 1 mg 1 mg, Intravenous, ONCE, 1 dose, Tue 11:42 CDT 07/02/18 at 1115, Pre-Procedure (IR) midazolam (VERSED) injection 1 mg Given 07/04/2018 1 mg 1 mg, Intravenous, ONCE, 1 dose, Ledy 08:31 CDT 07/04/18 at 0745 midazolam (VERSED) injection Given 07/02/2018 1 mg INTRA-PROCEDURE MED, Starting Tue 11:57 CDT 07/02/18 at 1157, Until 07/02/18 at 1157 nicotine (NICODERM CQ STEP 1) 21 mg/day Patch/Topica 07/06/2018 1 patch Arm, Right patch 1 patch l Applied 08:43 CDT 1 patch, Transdermal, Administer over 24 Hours, EVERY 24 HOURS, First dose on 07/01/18 at 2000, Until Discontinued Patch/Topical Applied 07/07/2018 1 patch Arm, Left 08:36 CDT Patch/Topical Applied 07/08/2018 1 patch Shoulder, 10:31 CDT Right ondansetron (ZOFRAN) tablet 4 mg 4 mg, Oral, EVERY 6 HOURS PRN, Starting 07/06/18 at 1719, Until 07/08/18 at 1513, Nausea/Vomiting PO pantoprazole DR (PROTONIX) tablet 40 mg Given 07/06/2018 40 mg 40 mg, Oral, DAILY, First dose on Mon 08:11 CDT 07/01/18 at 2100, Until Discontinued, Do not crush or chew tablet. Given 07/07/2018 40 mg 08:34 CDT Given 07/08/2018 40 mg 10:32 CDT potassium chloride SR (K-DUR) tablet 40 Given 07/07/2018 40 mEq mEq 08:34 CDT 40 mEq, Oral, ONCE, 1 dose, 07/07/18 at 0730, Do NOT break or crush tablet senna/docusate (SENOKOT-S) tablet 1 Given 07/07/2018 1 tablet tablet 08:34 CDT 1 tablet, Oral, TWICE DAILY, First dose on 07/01/18 at 2100, Until Discontinued, Hold for loose stools Given 07/07/2018 1 tablet 20:28 CDT Given 07/08/2018 1 tablet 10:30 CDT sodium chloride 0.9 % infusion Given - New 07/04/2018 500 mL 500 mL, 500 mL, Intravenous, ONCE, 1 Bag 09:23 CDT dose, Ledy 07/04/18 at 0745, Give post procedure in this encounter
--- OUTSIDE RECORDS SUMMARY | 2018-08-13 12:14 | XMS REPORT | Encounter Summary ---
Author Author [facility] Organization [facility] Address Unknown Phone Unavailable Care Team Providers Care Php Magento Developer Name Role Phone PCP Unavailable Encounter Details Date Type Department Care Team Description 06/17/2018 Hospital [facility] Encounter Hospital [facility] 2nd fl [address] [place], [place] [id number] Social History Tobacco Use Types Packs/Day Years Used Date Never Assessed Sex Assigned at Date Recorded Not on file as of this encounter Medications at Time of Discharge Medication Sig. Disp. Refills Start Date End Date levothyroxine (SYNTHROID) Take 50 mcg by mouth 03/22/2018 50 mcg tablet daily 30 minutes before breakfast. pantoprazole DR Take 40 mg by mouth 03/22/2018 (PROTONIX) 40 mg tablet daily. as of this encounter Plan of Treatment Date Type Specialty Care Team Description 08/23/2018 Surgery Perry Moseley MD CYSTOURETHROSCOPY WITH [address] URETERAL CATHETERIZATION [address] WITH/ WITHOUT IRRIGATION/ [place] [address] INSTILLATION/ [phone] URETEROPYELOGRAPHY 08/23/2018 Procedure Pass 08/23/2018 Hospital Perry Moseley MD Bilateral ureteral Encounter [address] obstruction [address] [place] [address] [phone] as of this encounter Procedures Procedure Name Priority Date/Time Associated Diagnosis Comments [facility] EXTERNAL IMAGING Routine 06/17/2018 Diagnosis unknown Results for this 12:00 AM CDT procedure are in the results section. in this encounter Results * [facility] EXTERNAL IMAGING (06/17/2018) Narrative Performed At This order has been auto finalized and does not contain a result. in this encounter Visit Diagnoses Diagnosis Diagnosis unknown Other unknown and unspecified cause of morbidity or mortality
--- OUTSIDE RECORDS SUMMARY | 2018-08-13 12:14 | XMS REPORT | Encounter Summary ---
Author Author [facility] Organization [facility] Address Unknown Phone Unavailable Care Team Providers Care Director Of Housing And Energy Services Name Role Phone PCP Unavailable Encounter Details Date Type Department Care Team Description 06/15/2018 Hospital [facility] Encounter Hospital Radiology Main Hospital 2nd fl [address] [place] [address] Social History Tobacco Use Types Packs/Day Years [...] URETERAL CATHETERIZATION [address] WITH/ WITHOUT IRRIGATION/ [place] [address] INSTILLATION/ [phone] URETEROPYELOGRAPHY 08/23/2018 Procedure Pass 08/23/2018 Hospital Perry Moseley MD Bilateral ureteral Encounter [address] obstruction [place] [address] [place] [address] [phone] as of this encounter Procedures Procedure Name Priority Date/Time Associated Diagnosis Comments US ABDOMEN EXTERNAL Routine 06/15/2018 Diagnosis unknown Results for this IMAGING 12:00 AM CDT procedure are in the results section. in this encounter Results * US ABDOMEN EXTERNAL IMAGING (06/15/2018) Narrative Performed At This order has been auto finalized and does not contain a result. in this encounter Visit Diagnoses Diagnosis Diagnosis unknown Other unknown and unspecified cause of morbidity or mortality
--- OUTSIDE RECORDS SUMMARY | 2018-08-13 12:14 | XMS REPORT | Encounter Summary ---
Author Author [facility] Organization [facility] Address Unknown Phone Unavailable Care Team Providers Care Armed Security Guard Name Role Phone PCP Unavailable Encounter Details Date Type Department Care Team Description 06/24/2018 Hospital [facility] Encounter Hospital Radiology Main Hospital 2nd fl [address] [place] [address] Social History Tobacco Use Types Packs/Day Years [...] URETERAL CATHETERIZATION [address] WITH/ WITHOUT IRRIGATION/ [place] [address] INSTILLATION/ [phone] URETEROPYELOGRAPHY 08/23/2018 Procedure Pass 08/23/2018 Hospital Perry Moseley MD Bilateral ureteral Encounter [address] obstruction [place] [address] [place] [address] [phone] as of this encounter Procedures Procedure Name Priority Date/Time Associated Diagnosis Comments US ABDOMEN EXTERNAL Routine 06/24/2018 Diagnosis unknown Results for this IMAGING 12:00 AM CDT procedure are in the results section. in this encounter Results * US ABDOMEN EXTERNAL IMAGING (06/24/2018) Narrative Performed At This order has been auto finalized and does not contain a result. in this encounter Visit Diagnoses Diagnosis Diagnosis unknown Other unknown and unspecified cause of morbidity or mortality
--- OUTSIDE RECORDS SUMMARY | 2018-08-13 12:14 | XMS REPORT | Encounter Summary ---
Author Author [facility] Organization [facility] Address Unknown Phone Unavailable Care Team Providers Care Brass Molder Name Role Phone PCP Unavailable Encounter Details Date Type Department Care Team Description 06/19/2018 Hospital [facility] Encounter Hospital [facility] 2nd fl [address] [place], [place] [id number] Social History Tobacco Use Types Packs/Day Years [...] URETERAL CATHETERIZATION [address] WITH/ WITHOUT IRRIGATION/ [place] [address] INSTILLATION/ [phone] URETEROPYELOGRAPHY 08/23/2018 Procedure Pass 08/23/2018 Hospital Perry Moseley MD Bilateral ureteral Encounter [address] obstruction [place] [address] [place] [address] [phone] as of this encounter Procedures Procedure Name Priority Date/Time Associated Diagnosis Comments IR [facility] [place]TER[place] Routine 06/19/2018 Diagnosis unknown Results for this 12:15 AM CDT procedure are in the results section. in this encounter Results * [facility] [place] (06/19/2018 12:15 AM) Narrative Performed At This order has been auto finalized and does not contain a result. in this encounter Visit Diagnoses Diagnosis Diagnosis unknown Other unknown and unspecified cause of morbidity or mortality
--- OUTSIDE RECORDS SUMMARY | 2018-08-13 12:14 | XMS REPORT | Encounter Summary ---
Author Author [facility] Organization [facility] Address Unknown Phone Unavailable Care Team Providers Care Product Assembler Name Role Phone PCP Unavailable Encounter Details Date Type Department Care Team Description 06/19/2018 Hospital [facility] Encounter Hospital Rad[facility] 2nd fl [address] [place] [address] Social History Tobacco Use Types Packs/Day Years [...] URETERAL CATHETERIZATION [address] WITH/ WITHOUT IRRIGATION/ [place] [address] INSTILLATION/ [phone] URETEROPYELOGRAPHY 08/23/2018 Procedure Pass 08/23/2018 Hospital Perry Moseley MD Bilateral ureteral Encounter [address] obstruction [place] [address] [place] [address] [phone] as of this encounter Procedures Procedure Name Priority Date/Time Associated Diagnosis Comments CT ABD/PEL EXTERNAL Routine 06/19/2018 Diagnosis unknown Results for this IMAGING 12:00 AM CDT procedure are in the results section. in this encounter Results * CT ABD/PEL EXTERNAL IMAGING (06/19/2018) Narrative Performed At This order has been auto finalized and does not contain a result. in this encounter Visit Diagnoses Diagnosis Diagnosis unknown Other unknown and unspecified cause of morbidity or mortality
--- OUTSIDE RECORDS SUMMARY | 2018-08-13 12:14 | XMS REPORT | Encounter Summary ---
Author Author [facility] Organization [facility] Address Unknown Phone Unavailable Care Team Providers Care Home Care Manager Name Role Phone PCP Unavailable Encounter Details Date Type Department Care Team Description 06/03/2018 Hospital [facility] Encounter Hospital Rad[facility] Main [facility] 2nd fl [address] [place] [address] Social History Tobacco Use Types Packs/Day Years [...] URETERAL CATHETERIZATION [address] WITH/ WITHOUT IRRIGATION/ [place] [address] INSTILLATION/ [phone] URETEROPYELOGRAPHY 08/23/2018 Procedure Pass 08/23/2018 Hospital Perry Moseley MD Bilateral ureteral Encounter [address] obstruction [address] [place] [address] [phone] as of this encounter Procedures Procedure Name Priority Date/Time Associated Diagnosis Comments CT ABD/PEL EXTERNAL Routine 06/03/2018 Diagnosis unknown Results for this IMAGING 12:00 AM CDT procedure are in the results section. in this encounter Results * CT ABD/PEL EXTERNAL IMAGING (06/03/2018) Narrative Performed At This order has been auto finalized and does not contain a result. in this encounter Visit Diagnoses Diagnosis Diagnosis unknown Other unknown and unspecified cause of morbidity or mortality
--- OUTSIDE RECORDS SUMMARY | 2018-08-13 12:14 | XMS REPORT | Encounter Summary ---
Author Author [facility] Organization [facility] Address Unknown Phone Unavailable Care Team Providers Care Boiler House Inspector Name Role Phone PCP Unavailable Encounter Details Date Type Department Care Team Description 06/10/2018 Hospital [facility] Encounter Hospital Rad[facility] Main [facility] 2nd fl [address] [place] [address] Social History Tobacco Use Types Packs/Day Years [...] URETERAL CATHETERIZATION [address] WITH/ WITHOUT IRRIGATION/ [place] [address] INSTILLATION/ [phone] URETEROPYELOGRAPHY 08/23/2018 Procedure Pass 08/23/2018 Hospital Perry Moseley MD Bilateral ureteral Encounter [address] obstruction [address] [place] [address] [phone] as of this encounter Procedures Procedure Name Priority Date/Time Associated Diagnosis Comments US ABDOMEN EXTERNAL Routine 06/10/2018 Diagnosis unknown Results for this IMAGING 12:00 AM CDT procedure are in the results section. in this encounter Results * US ABDOMEN EXTERNAL IMAGING (06/10/2018) Narrative Performed At This order has been auto finalized and does not contain a result. in this encounter Visit Diagnoses Diagnosis Diagnosis unknown Other unknown and unspecified cause of morbidity or mortality
--- OUTSIDE RECORDS SUMMARY | 2018-08-13 12:14 | XMS REPORT | Encounter Summary ---
Author Author [facility] Organization [facility] Address Unknown Phone Unavailable Care Team Providers Care Conveyor Line Bakery Worker Name Role Phone PCP Unavailable Encounter Details Date Type Department Care Team Description 06/05/2018 Hospital [facility] Encounter Hospital Rad[facility] Main [facility] 2nd fl [address] [place], [place] [id number] Social History Tobacco Use Types Packs/Day Years [...] URETERAL CATHETERIZATION [address] WITH/ WITHOUT IRRIGATION/ [place] [address] INSTILLATION/ [phone] URETEROPYELOGRAPHY 08/23/2018 Procedure Pass 08/23/2018 Hospital Perry Moseley MD Bilateral ureteral Encounter [address] obstruction [address] [place] [address] [phone] as of this encounter Procedures Procedure Name Priority Date/Time Associated Diagnosis Comments IR [facility] [place] EXTERNAL [place]ING Routine 06/05/2018 Diagnosis unknown Results for this 12:00 AM CDT procedure are in the results section. in this encounter Results * IR [facility] [place] EXTERNAL IMAGING (06/05/2018) Narrative Performed At This order has been auto finalized and does not contain a result. in this encounter Visit Diagnoses Diagnosis Diagnosis unknown Other unknown and unspecified cause of morbidity or mortality
--- OUTSIDE RECORDS SUMMARY | 2018-08-13 12:14 | XMS REPORT | Continuity of Care Document ---
Author Author [facility] Organization [facility] Address Unknown Phone Unavailable Allergies Active Description Code Type Severity Reaction Onset Reported/Identified Relationship to Patient Clinical Status Yes codeine [id number] Drug Allergy Unknown N/V 03/04/2012 Medications There is no data. Problems Date Dx Coded Attending Type Code Diagnosis Diagnosed By 09/29/2014 Ot 780.4 09/29/2014 Ot 784.0 09/29/2014 Ot 789.00 09/29/2014 Ot V76.12 09/29/2014 Ot 735.4 09/29/2014 Ot V72.84 09/29/2014 Ot V74.8 09/29/2014 Ot 735.4 09/29/2014 Ot 793.82 09/29/2014 TYLER CLANCY MD Ot 793.89 09/29/2014 TYLER CLANCY MD Ot V76.12 09/29/2014 TYLER CLANCY MD Ot 793.89 09/20/2015 Ot V76.12 09/20/2015 Ot 735.4 09/20/2015 Ot V72.84 09/20/2015 Ot V74.8 09/20/2015 Ot 735.4 09/20/2015 Ot 793.82 09/20/2015 TYLER CLANCY MD Ot 793.89 09/20/2015 TYLER CLANCY MD Ot V76.12 09/20/2015 TYLER CLANCY MD Ot 793.89 09/20/2015 TYLER CLANCY MD Ot 793.80 09/22/2015 JAVIER DISLA MD Ot Z12.31 10/13/2015 JAVIER DISLA MD Ot Z12.31 10/04/2016 Ot 735.4 OTHER HAMMER TOE 10/04/2016 Ot V72.84 EXAM PRE- OPERATIVE NOS 10/04/2016 Ot V74.8 SCREEN- BACTERIAL DIS NEC 10/04/2016 Ot 735.4 OTHER HAMMER TOE 10/04/2016 Ot 793.82 INCONCLUSIVE MAMMOGRAM 10/04/2016 TYLER CLANCY MD Ot 793.89 OTH (ABN) FINDINGS ON RADIOLOGICAL EXAMI 10/04/2016 TYLER CLANCY MD Ot V76.12 OTH SCREEN MAMMO-MALIGN NEOPLASM OF JAMES 10/04/2016 TYLER CLANCY MD Ot 793.89 OTH (ABN) FINDINGS ON RADIOLOGICAL EXAMI 10/04/2016 TYLER CLANCY MD Ot 793.80 UNSPEC ABNORMAL MAMMOGRAM 10/04/2016 JAVIER DISLA MD A Ot Z12.31 ENCNTR SCREEN MAMMOGRAM FOR MALIGNANT NE 10/04/2016 JAVIER DISLA MD A Ot Z12.31 ENCNTR SCREEN MAMMOGRAM FOR MALIGNANT NE 10/04/2016 JAVIER DISLA MD Ot Z12.31 ENCNTR SCREEN MAMMOGRAM FOR MALIGNANT NE 10/09/2016 JAVIER DISLA MD A Ot Z12.31 ENCNTR SCREEN MAMMOGRAM FOR MALIGNANT NE 10/09/2016 JAVIER DISLA MD A Ot Z12.31 ENCNTR SCREEN MAMMOGRAM FOR MALIGNANT NE 10/19/2016 JAVIER DISLA MD A Ot Z12.31 ENCNTR SCREEN MAMMOGRAM FOR MALIGNANT NE 10/15/2017 VASHTI DAVILA MATERIAL PREPARATION WORKER Ot Z12.31 ENCNTR SCREEN MAMMOGRAM FOR MALIGNANT NE 01/25/2018 Ot 793.82 INCONCLUSIVE MAMMOGRAM 01/25/2018 TYLER CLANCY MD Ot 793.89 OTH (ABN) FINDINGS ON RADIOLOGICAL EXAMI 01/25/2018 TYLER CLANCY MD Ot V76.12 OTH SCREEN MAMMO-MALIGN NEOPLASM OF JAMES 01/25/2018 TYLER CLANCY MD Ot 793.89 OTH (ABN) FINDINGS ON RADIOLOGICAL EXAMI 01/25/2018 TYLER CLANCY MD Ot 793.80 UNSPEC ABNORMAL MAMMOGRAM 01/25/2018 JAVIER DISLA MD A Ot Z12.31 ENCNTR SCREEN MAMMOGRAM FOR MALIGNANT NE 01/25/2018 JAVIER DISLA MD Ot Z12.31 ENCNTR SCREEN MAMMOGRAM FOR MALIGNANT NE 01/25/2018 VASHTI DAVILA APRN Ot Z12.31 ENCNTR SCREEN MAMMOGRAM FOR MALIGNANT NE 01/28/2018 PAYTON GILLESPIE MD Ot H25.89 OTHER AGE-RELATED CATARACT 01/28/2018 PAYTON GILLESPIE MD Ot Z01.818 ENCOUNTER FOR OTHER PREPROCEDURAL EXAMIN 01/29/2018 PAYTON GILLESPIE MD Ot H25.89 OTHER AGE-RELATED CATARACT 01/29/2018 PAYTON GILLESPIE MD Ot Z01.818 ENCOUNTER FOR OTHER PREPROCEDURAL EXAMIN 01/30/2018 Ot 793.82 INCONCLUSIVE MAMMOGRAM 01/30/2018 TYLER CLANCY MD Ot 793.89 OTH (ABN) FINDINGS ON RADIOLOGICAL EXAMI 01/30/2018 TYLER CLANCY MD Ot V76.12 OTH SCREEN MAMMO-MALIGN NEOPLASM OF JAMES 01/30/2018 TYLER CLANCY MD Ot 793.89 OTH (ABN) FINDINGS ON RADIOLOGICAL EXAMI 01/30/2018 TYLER CLANCY MD Ot 793.80 UNSPEC ABNORMAL MAMMOGRAM 01/30/2018 JAVIER DISLA MD Ot Z12.31 ENCNTR SCREEN MAMMOGRAM FOR MALIGNANT NE 01/30/2018 JAVIER DISLA MD Ot Z12.31 ENCNTR SCREEN MAMMOGRAM FOR MALIGNANT NE 01/30/2018 VASHTI DAVILA APRN Ot Z12.31 ENCNTR SCREEN MAMMOGRAM FOR MALIGNANT NE 02/01/2018 PAYTON GILLESPIE MD Ot E07.9 DISORDER OF THYROID, UNSPECIFIED 02/01/2018 PAYTON GILLESPIE MD Ot F17.210 NICOTINE DEPENDENCE, CIGARETTES, UNCOMPL 02/01/2018 PAYTON GILLESPIE MD Ot F32.9 MAJOR DEPRESSIVE DISORDER, SINGLE EPISOD 02/01/2018 PAYTON GILLESPIE MD Ot H26.9 UNSPECIFIED CATARACT 02/01/2018 PAYTON GILLESPIE MD Ot R51 HEADACHE 02/01/2018 PAYTON GILLESPIE MD Ot Z79.899 OTHER PENITENTIARY (CURRENT) DRUG THERAPY 02/04/2018 PAYTON GILLESPIE MD Ot E07.9 DISORDER OF THYROID, UNSPECIFIED 02/04/2018 PAYTON GILLESPIE MD Ot F17.210 NICOTINE DEPENDENCE, CIGARETTES, UNCOMPL 02/04/2018 PAYTON GILLESPIE MD Ot F32.9 MAJOR DEPRESSIVE DISORDER, SINGLE EPISOD 02/04/2018 VERNA MOROCHO, PAYTON Johnson Ot H26.9 UNSPECIFIED CATARACT 02/04/2018 VRENA MOROCHO, PAYTON L Ot R51 HEADACHE 02/04/2018 PAYTON GILLESPIE MD Ot Z79.899 OTHER HEDGE FUND MANAGER (CURRENT) DRUG THERAPY 02/04/2018 PAYTON GILLESPIE MD Ot E07.9 DISORDER OF THYROID, UNSPECIFIED 02/04/2018 VERNA MOROCHO, PAYTON Johnson Ot F17.210 NICOTINE DEPENDENCE, CIGARETTES, UNCOMPL 02/04/2018 PAYTON GILLESPIE MD Ot F32.9 MAJOR DEPRESSIVE DISORDER, SINGLE EPISOD 02/04/2018 PAYTON GILLESPIE MD Ot H26.9 UNSPECIFIED CATARACT 02/04/2018 PAYTON GILLESPIE MD Ot R51 HEADACHE 02/04/2018 PAYTON GILLESPIE MD Ot Z79.899 OTHER HEDGE FUND MANAGER (CURRENT) DRUG THERAPY 05/31/2018 TYLER CLANCY MD Ot 793.89 OTH (ABN) FINDINGS ON RADIOLOGICAL EXAMI 05/31/2018 TYLER CLANCY MD Ot V76.12 OTH SCREEN MAMMO-MALIGN NEOPLASM OF JAMES 05/31/2018 TYLER CLANCY MD Ot 793.89 OTH (ABN) FINDINGS ON RADIOLOGICAL EXAMI 05/31/2018 TYLER CLANCY MD Ot 793.80 UNSPEC ABNORMAL MAMMOGRAM 05/31/2018 JAVIER DISLA MD Ot Z12.31 ENCNTR SCREEN MAMMOGRAM FOR MALIGNANT NE 05/31/2018 JAVIER DISLA MD Ot Z12.31 ENCNTR SCREEN MAMMOGRAM FOR MALIGNANT NE 05/31/2018 VASHTI DAVILA APRN Ot Z12.31 ENCNTR SCREEN MAMMOGRAM FOR MALIGNANT NE 06/03/2018 VASHTI DAVILA APRN Ot K59.00 CONSTIPATION, UNSPECIFIED 07/11/2018 VASHTI DAVILA APRN Ot K59.00 CONSTIPATION, UNSPECIFIED Procedures There is no data. Results There is no data. Encounters ACCT No. Visit Date/Time Discharge Status Pt. Type Provider Facility Loc./Unit Complaint [id number] 05/31/2018 07:42:00 05/31/2018 23:59:59 CLS Outpatient VASHTI DAVILA APRN [facility] RAD CONSTIPATION [id number] 02/01/2018 11:22:00 02/01/2018 13:10:00 DIS Outpatient PAYTON GILLESPIE MD [facility] SDC CATARACT [id number] 01/28/2018 10:30:00 01/28/2018 11:06:00 DIS Outpatient PAYTON GILLESPIE MD [facility] PREOP CATARACT [id number] 10/01/2017 07:01:00 10/01/2017 23:59:59 CLS Outpatient VASHTI DAVILA APRN [facility] RAD SCREENING [id number] 10/04/2016 08:41:00 10/04/2016 23:59:59 CLS Outpatient JAVIER DISLA MD [facility] RAD SCREENING [id number] 09/20/2015 11:06:00 09/20/2015 23:59:59 CLS Outpatient JAVIER DISLA MD [facility] RAD SCREENING [id number] 09/29/2014 07:41:00 09/29/2014 23:59:59 CLS Outpatient TYLER CLANCY MD [facility] RAD ABN MAMMO [id number] 09/29/2013 07:30:00 09/29/2013 23:59:59 CLS Outpatient TYLER CLANCY MD [facility] RAD ABN MAMMO [id number] 09/11/2013 06:54:00 09/11/2013 23:59:59 CLS Outpatient TYLER CLANCY MD [facility] RAD SCREENING [id number] 09/29/2014 07:45:00 Document Registration [id number] 09/29/2014 07:45:00 Document Registration [id number] 09/29/2014 07:45:00 Document Registration [id number] 09/29/2014 07:45:00 Document Registration [id number] 09/10/2012 08:25:00 Document Registration [id number] 03/07/2012 05:47:00 Document Registration [id number] 03/04/2012 14:23:00 Document Registration [id number] 04/15/2010 09:45:00 Document Registration [id number] 05/26/2009 14:23:00 Document Registration [id number] 04/28/2009 14:02:00 Document Registration [id number] 09/10/2017 13:35:31 09/10/2017 23:59:59 [facility] Outpatient
--- OUTSIDE RECORDS SUMMARY | 2018-08-13 12:14 | XMS REPORT | Encounter Summary ---
Author Author [facility] Organization [facility] Address Unknown Phone Unavailable Care Team Providers Care Newspaper Correspondent Name Role Phone PCP Unavailable Encounter Details Date Type Department Care Team Description 06/04/2018 Hospital [facility] Encounter Hospital Radiology Main Hospital 2nd fl [address] [place], [place] [id number] Social History Tobacco Use Types Packs/Day Years [...] URETERAL CATHETERIZATION [address] WITH/ WITHOUT IRRIGATION/ [place] [address] INSTILLATION/ [phone] URETEROPYELOGRAPHY 08/23/2018 Procedure Pass 08/23/2018 Hospital Perry Moseley MD Bilateral ureteral Encounter [address] obstruction [address] [place] [address] [phone] as of this encounter Procedures Procedure Name Priority Date/Time Associated Diagnosis Comments ECG-SCAN 07/01/2018 Results for this 2:40 PM CDT procedure are in the results section. [facility] EXTERNAL IMAGING Routine 06/04/2018 Diagnosis unknown Results for this 12:00 AM CDT procedure are in the results section. in this encounter Results * ECG-SCAN (07/01/2018 2:40 PM) Narrative Performed At Ordered by an unspecified provider. * IR [facility] EXTERNAL [place]AGING (06/04/2018) Narrative Performed At This order has been auto finalized and does not contain a result. in this encounter Visit Diagnoses Diagnosis Diagnosis unknown Other unknown and unspecified cause of morbidity or mortality
--- OUTSIDE RECORDS SUMMARY | 2018-08-13 12:14 | XMS REPORT | Encounter Summary ---
Author Author [facility] Organization [facility] Address Unknown Phone Unavailable Care Team Providers Care Pinking Machine Operator Name Role Phone PCP Unavailable Encounter Details Date Type Department Care Team Description 06/22/2018 Hospital [facility] Encounter Hospital Radiology Main Hospital 2nd fl [address] [place] [address] Social History Tobacco Use Types Packs/Day Years [...] URETERAL CATHETERIZATION [address] WITH/ WITHOUT IRRIGATION/ [place] [address] INSTILLATION/ [phone] URETEROPYELOGRAPHY 08/23/2018 Procedure Pass 08/23/2018 Hospital Perry Moseley MD Bilateral ureteral Encounter [address] obstruction [address] [place] [address] [phone] as of this encounter Procedures Procedure Name Priority Date/Time Associated Diagnosis Comments US VENOUS DOPPLER Routine 06/22/2018 Diagnosis unknown Results for this EXTERNAL IMAGING 12:00 AM CDT procedure are in the results section. in this encounter Results * US VENOUS DOPPLER EXTERNAL IMAGING (06/22/2018) Narrative Performed At This order has been auto finalized and does not contain a result. in this encounter Visit Diagnoses Diagnosis Diagnosis unknown Other unknown and unspecified cause of morbidity or mortality
--- OUTSIDE RECORDS SUMMARY | 2018-08-13 12:14 | XMS REPORT | Encounter Summary ---
Author Author [facility] Organization [facility] Address Unknown Phone Unavailable Care Team Providers Care Registered Nurse Midwife Name Role Phone PCP Unavailable Encounter Details Date Type Department Care Team Description 06/25/2018 Hospital [facility] Encounter Hospital Radiology Main Hospital 2nd fl [address] [place] [address] Social History Tobacco Use Types Packs/Day Years [...] URETERAL CATHETERIZATION [address] WITH/ WITHOUT IRRIGATION/ [place] [address] INSTILLATION/ [phone] URETEROPYELOGRAPHY 08/23/2018 Procedure Pass 08/23/2018 Hospital Perry Moseley MD Bilateral ureteral Encounter [address] obstruction [address] [place] [address] [phone] as of this encounter Procedures Procedure Name Priority Date/Time Associated Diagnosis Comments MRI PELVIS EXTERNAL Routine 06/25/2018 Diagnosis unknown Results for this IMAGING 12:00 AM CDT procedure are in the results section. in this encounter Results * MRI PELVIS EXTERNAL IMAGING (06/25/2018) Narrative Performed At This order has been auto finalized and does not contain a result. in this encounter Visit Diagnoses Diagnosis Diagnosis unknown Other unknown and unspecified cause of morbidity or mortality
--- NOTE | 2018-08-13 12:21 | History & Physicial ---
History of Present Illness History of Present Illness Reason for visit/HPI To undergo an upper endoscopy regarding nausea and vomiting. Previous cholecystectomy. Date of Admission 08/13/18 Date Seen by a Provider: Aug 13, 2018 Time Seen by a Provider: 12:19 I consulted on this patient on 08/13/18 12:19 Attending Physician Herman Ferguson MD Admitting Physician Jeny Garcia MD Consult Allergies and Home Medications Allergies Coded Allergies: Codeine (Unverified Allergy, N/V, 03/04/12) Home Medications Citalopram Hydrobromide 40 Mg Tablet, 40 MG PO DAILY, (Reported) Clonazepam 1 Mg Tablet, 1 MG PO HS PRN for SLEEP, (Reported) Fenofibrate,Micronized 134 Mg Capsule, 134 MG PO DAILY, (Reported) Levothyroxine Sodium 50 Mcg Tablet, 50 MCG PO DAILY, (Reported) Pantoprazole Sodium 40 Mg Tablet.dr, 40 MG PO DAILY, (Reported) Patient Home Medication List Home Medication List Reviewed: Yes Past [id number] Hx Patient Social History Employed/Student: retired Recent Foreign Travel: No Contact w/other who traveled: No Surgeries Yes Gallbladder Cardiovascular No Reproductive System Hx Reproductive Disorders: No Endocrine History of Endocrine Disorders: Yes Endocrine Disorders: Hypothyroidsim Review of Systems Constitutional: no symptoms reported EENTM: no symptoms reported Respiratory: no symptoms reported Cardiovascular: no symptoms reported Gastrointestinal: see HPI Skin: no symptoms reported, see HPI Psychiatric/Neurological: No Symptoms Reported Physical Exam Vital Signs Capillary Refill : Height, Weight, BMI Height: 5'5.00" Weight: 160lbs. 0.0oz. 72.219898qg; BMI Method: General Appearance: No Apparent Distress Neck: Normal Inspection Respiratory: Lungs Clear Cardiovascular: Regular Rate, Rhythm Gastrointestinal: Non Tender, Soft Neurologic/Psychiatric: Oriented x3 Skin: Warm/Dry Assessment/Plan Assessment and Plan Lady with the nausea and vomiting. For upper endoscopy Admission Diagnosis Admission Status: Other (Outpt Proc) HERMAN FERGUSON MD Aug 13, 2018 12:21
--- NOTE | 2018-08-13 12:21 | Conscious Sedation/ASA ---
Conscious Sedation Pre-Proced Time 12:21 ASA Score 2 For ASA 3 and 4: Consider anesthesia and medical clearance. Also, for patients with a history of failed moderate sedation consider anesthesia. Airway Lungs Heart ASA score ASA 1: a normal healthy patient ASA 2: a patient with a mild systemic disease (mid diabetes, controlled hypertension, obesity ASA 3: a patient with a severe systemic disease that limits activity (angina , COPD, prior Myocardial infarction) ASA 4: a patient with an incapacitating disease that is a constant threat to life (CHF, renal failure) ASA 5: a moribund patient not expected to survive 24 hrs. (ruptured aneurysm) ASA 6: a declared brain patient whose organs are being harvested. For emergent operations, add the letter E after the classification Mallampati Classification Grade 1 Sedation Plan Discussed options with patient/fam The patient is an appropriate candidate to undergo the planned procedure, sedation, and anesthesia. The patient immediately re-assessed prior to indication. HERMAN JIANG MD Aug 13, 2018 12:21
[2018-08-13] MEDS ORDERED: APIX5TAB PO (12:30)
[2018-08-13] MEDS ORDERED: water pill PO (12:30)
[2018-08-13] MEDS ORDERED: DOCU100T7 PO (12:30)
[2018-08-13] MEDS ORDERED: MIDAZOLAM 2 MG/2 ML (VERSED) VIAL ONE ×3 (12:32→12:33)
[2018-08-13] MEDS ORDERED: fentaNYL INJECTION 100 MCG/2 ML AMP ONE (12:33)
[2018-08-13] MEDS ORDERED: HURRICAINE EXT TUBE (BENZOCAINE) ONE (12:33)
[2018-08-13 12:48] VITALS: BP 99/70
--- NOTE | 2018-08-13 13:13 | Endo Procedure Record ---
Endo Procedure Report Date of Procedure Last Colonoscopy: No Aug 13, 2018 Surgeon (s) HERMAN JIANG MD Post Procedure/Op Diagnosis grade 3 esophagitis Diffuse, severe gastritis Proximal duodenitis with petechia Procedure Performed EGD with antral biopsy for H. pylori Description of Procedure Anesthesia Type: Conscious Sedation Specimen(s) collected/removed antral mucosa for H. pylori Description of the Procedure indication for the procedure: This lady is known to have had peptic ulcers in the past and currently suffers severe nausea, heartburn and epigastric pain. Therefore, it was felt reasonable to perform an upper endoscopy. Informed consent was obtained after reviewing the procedure in detail. Description of the procedure: She was placed supine due to a recent percutaneous nephrostomy and conscious sedation achieved using Versed and fentanyl. The flexible gastroscope was then introduced down the esophagus, past the stomach, into the proximal duodenum. Findings: Esophagus: Grade 3 esophagitis with strips of inflamed gastric mucosa creeping up the distal esophagus, up to about 32 cm from the incisor teeth. There was no stricture, not any surface ulceration. There is no evidence of candidiasis either. Stomach: Diffuse, severe gastritis without any ulceration. Biopsy for H. pylori was obtained. Pylorus was patent without any stricture. Duodenum: Severe duodenitis of the first part with petechia. There was no contact bleeding. She tolerated the procedure well and was taken back to the nursing area in a stable condition. Impression: Symptoms of reflux with severe nausea and vomiting. Grade 3 esophagitis with diffuse gastritis. H. pylori status pending. Copy Copies To 1: JAVIER DISLA MD, XAVIER M MD Aug 13, 2018 13:13
--- NOTE | 2018-08-13 13:15 | Discharge Inst-Simple/Standard ---
Discharge Inst-Standard Discharge Medications New, Converted or Re-Newed RX: Other Patient Instructions/Follow Up Plan of Care/Instructions/FU: to continue Zofran sublingual as prescribed by her primary physician. Follow-up with Dr. Garcia Activity as Tolerated: Yes Discharge Diet: No Restrictions HERMAN JIANG MD Aug 13, 2018 13:15
[2018-08-13 13:20] VITALS: BP 114/69
[2018-08-13] MEDS ORDERED: PANTOPRAZOLE 40 MG (PROTONIX) VIAL IV ONE (13:30)
[2018-08-13 13:50] VITALS: BP 112/71
== END 2018-08-13 14:10 | disposition home or self-care (01) ==
LOC: ENDO 11:34
PROVIDERS: ATTEND Surgery
DX: K20.9 Esophagitis, unspecified (principal); K29.70 Gastritis, unspecified, without bleeding; K29.80 Duodenitis without bleeding; E03.9 Hypothyroidism, unspecified; Z79.899 Other long term (current) drug therapy

== ENCOUNTER 2018-08-14 17:07 | Emergency (ER) | payer MEDICARE, OTHER ==
[~2018-08-14] VITALS: Ht 167.6 cm; Wt 68.0 kg
[~2018-08-14 17:07] MED LIST changes: +APIX5TAB PO; +DOCU100T7 PO; +water pill PO
--- OUTSIDE RECORDS SUMMARY | 2018-08-14 17:13 | XMS REPORT | Encounter Summary ---
Author Author [facility] Organization [facility] Address Unknown Phone Unavailable Care Team Providers Care Senior Manager Name Role Phone Jeny Garcia MD PCP Reason for Visit * Reason Comments Heme/Onc Care Encounter Details Date Type Department Care Team Description 07/30/2018 Office Visit [facility] Perry Moseley MD Bilateral ureteral Cancer Center - IC Exam [address] obstruction [address] [place] [address] [place] [address] [phone] Social History Tobacco Use Types Packs/Day Years [...] RN - 07/30/2018 1:00 PM CDT [facility] - Ic Exam Pre-Operative Instructions Surgical [...] multivitamin, red yeast rice, ERIC-e, saw palmetto, [place] wort, turmeric, valerian root, Vascepa, Vitamin A, Vitamin B complex, Vitamin C, Vitamin E ? You DO NOT need to stop: iron, magnesium, potassium 7 days prior to surgery: ? Stop anti-inflammatory medications such as ibuprofen (Advil, Motrin), naproxen (Aleve), [place], Excedrin, Midol, celecoxib (Celebrex), diclofenac (Voltaren), diflunisal, [...] evenings, nights, weekends, and holidays, contact [facility] railroad signal and switch operator and request they contact the on-call Urology Resident at [phone]. in this encounter Progress Notes * Perry [...] Treatment Date Type Specialty Care Team Description 08/15/2018 PAC Office Anesthesiology Perry Moseley MD Visit [address] [place] [address] [phone] 08/23/2018 Surgery Perry Moseley MD CYSTOURETHROSCOPY WITH [address] URETERAL CATHETERIZATION [address] WITH/ WITHOUT IRRIGATION/ [place] [address] INSTILLATION/ [phone] URETEROPYELOGRAPHY 08/23/2018 Procedure Pass 08/23/2018 Hospital Perry Moseley MD Bilateral ureteral Encounter [address] obstruction [address] [place] [address] [phone] as of this encounter Visit Diagnoses Diagnosis Bilateral ureteral obstruction
--- OUTSIDE RECORDS SUMMARY | 2018-08-14 17:13 | XMS REPORT | Encounter Summary ---
Author Author [facility] Organization [facility] Address Unknown Phone Unavailable Care Team Providers Care Jump Roll Operator Name Role Phone Jeny Garcia MD PCP Encounter Details Date Type Department Care Team Description 07/30/2018 Prep for Case [facility] Perry Moseley MD Bilateral ureteral Cancer Center - IC Exam [address] obstruction (Primary Dx) [address] [place] [address] [place] [address] Social History Tobacco Use Types Packs/Day Years [...] MD Visit [address] [place], [place] [phone] 08/23/2018 Surgery Perry Moseley MD CYSTOURETHROSCOPY WITH [address] URETERAL CATHETERIZATION [address] WITH/ WITHOUT IRRIGATION/ [place] [address] INSTILLATION/ [phone] URETEROPYELOGRAPHY 08/23/2018 Procedure Pass 08/23/2018 [facility] Perry Moseley MD Bilateral ureteral Encounter [address] obstruction [address] [place] [address] [phone] as of this encounter Visit Diagnoses Diagnosis Bilateral ureteral obstruction - Primary
--- OUTSIDE RECORDS SUMMARY | 2018-08-14 17:13 | XMS REPORT | Clinical Summary ---
Author Author [facility] Organization [facility] Address Unknown Phone Unavailable Care Team Providers Care Guest Service Aide Name Role Phone Jeny Garcia MD PCP Source Comments Some departments are not documenting in the electronic medical record. If you do not see the information that you expected, contact Release of Information in the Health Information Management department at [phone] for further assistance in locating additional records.[facility] Allergies Active Allergy Reactions Severity Noted Date [...] pantoprazole DR Take 40 mg by mouth twice 03/22/20 Active (PROTONIX) 40 mg daily. 18 tabletIndications: gastroesophageal reflux disease calcium carbonate (TUMS) Chew 1 tablet by mouth Active 500 mg (200 mg elemental twice daily as needed. calcium) chewable tablet nicotine (NICODERM CQ Apply [...] tablet 3 Active tablet every morning. 18 torsemide(+) (DEMADEX) 20 Take 20 mg by mouth daily Active mg tabletIndications: with breakfast. Edema ondansetron (ZOFRAN ODT) Dissolve 4 mg by mouth Active 4 mg rapid dissolve every 8 hours as needed tablet for Nausea or Vomiting. Place on tongue to disolve. Active Problems Problem Noted Date Bilateral ureteral obstruction 08/02/2018 Anxiety 07/07/2018 Major depressive disorder with single episode, in remission ([facility]) 07/07/2018 Gastroesophageal reflux disease without esophagitis 07/07/2018 Hypothyroidism due to acquired atrophy of thyroid 07/07/2018 Vitamin D deficiency 07/07/2018 MEE (acute kidney injury) ([facility]) 07/07/2018 Pyuria 07/07/2018 Volume overload 07/07/2018 Acute deep vein thrombosis (DVT) of distal end of right lower extremity ([facility]) Debility 07/07/2018 Obesity (BMI 30-39.9) 07/07/2018 Hydronephrosis [...] MD Bilateral ureteral obstruction (Primary Dx) 07/01/2018 [facility] Darrick Lazo MD Obstructive uropathy - Encounter [...] Office Anesthesiology Perry Moseley MD Visit [address] [facility] [address] [place] [address] [phone] 08/23/2018 Surgery Perry Moseley MD CYSTOURETHROSCOPY WITH [address] URETERAL CATHETERIZATION [address] WITH/ WITHOUT IRRIGATION/ [place] [address] INSTILLATION/ [phone] URETEROPYELOGRAPHY 08/23/2018 Procedure Pass 08/23/2018 Hospital Perry Moseley MD Bilateral ureteral Encounter [address] [place] [address] [phone] Health Maintenance Due Date Last Done Comments [...] Address City/State/Zipcode Phone Number [facility] [address] [place] [address] * COMPREHENSIVE METABOLIC PANEL (07/08/2018 5:46 AM) [...] Blood Performing Organization Address City/State/Zipcode Phone Number [facility] [address] [place] [address] * IR CENTRAL VENOUS CATHETER (07/04/2018 4:45 [...] have been catheter removal. @TT Approved by AKTLIN Still on 07/04/2018 4:47 PM By my electronic signature, I attest that I have personally reviewed the images for this examination and formulated the interpretations and opinions expressed in this report Finalized by Gilberto Karimi M.D. on 07/05/2018 9:00 AM. Dictated by KATLIN Still on 07/04/2018 4:47 PM. Narrative Performed At TUNNELED CATHETER REMOVAL [facility] RESULTS CLINICAL INDICATION: Completion of therapy. OPERATORS:KATLIN [...] radiologist, was present for the critical and daimond portions of the procedure with a midlevel, [...] needle. Access was maintained with a 6 Paraguayan sheath. A 5 [place]agu[place] pigtail catheter was advanced over a 0.035 [...] needle. Access was maintained with a 6 [place] sheath. A 5 [place] pigtail catheter was advanced over a 0.035 [...] on 07/04/2018 9:13 AM. Performing Organization Address [facility]/[employer] Phone Number [facility] RES[facility] * PROTEIN/CR RATIO,UR RAN (07/03/2018 2:00 PM) Protein, Random 10 MG/DL [facility] Creatinine, Random 32 MG/DL [facility] Protein/CR ratio 0.3 [facility] Specimen Urine - Urine Performing Organization Address [facility] Phone Number MAIN LAB [address] [place] [address] * IRON + BINDING CAPACITY + %SAT+ [...] Phone Number MAIN LAB [address] [place] [address] * IR ASPIRATION/DRAIN (07/02/2018 12:13 PM) Impressions [...] set was then removed and an 8 [place]agu[place] pigtail catheter was advanced into the renal pelvis. The Chloride loop was formed. Contrast was instilled into [...] set was then removed and an 8 [place]agu[place] pigtail catheter was advanced into the renal pelvis. The Chloride loop was formed. Contrast was instilled into [...] OTHER OUTSIDE LAB S' Cardiology Ultrasound Siemens [id number] OTHER OUTSIDE LAB Machine Left Ventricle Mass [...] systolic PA pressure=18 mmHg Performing Organization Address City/[facility] Phone Number OTHER OUTSIDE LAB * TSH WITH FREE T4 REFLEX (07/02/2018 6:18 AM) TSH 2.360 0.35 - 5.00 MCU/ML [facility] Specimen Blood Performing Organization Address [facility] Phone Number MAIN LAB [address] [place] [address] * PHOSPHORUS (07/02/2018 6:18 AM) Phosphorus 4.9 (H) 2.0 - 4.0 MG/DL [facility] Specimen Blood Performing Organization Address [facility] Phone Number [facility] [address] [place] [address] * BNP (B-TYPE NATRIURETIC PEPTI) (07/02/2018 6:18 AM) B Type Natriuretic 71.0 0 - 100 PG/ML [facility] Peptide Specimen Blood Performing Organization Address [facility] Phone Number MAIN LAB [address] [place] [address] * MAGNESIUM (07/02/2018 6:18 AM) Only the most recent of 2 results within the time period is included. Magnesium 2.0 1.6 - 2.6 mg/dL [facility] Specimen Blood Performing Organization Address [facility] Phone Number [facility] [address] [place] [address] * CHEST SINGLE VIEW (07/02/2018 6:07 AM) Impressions Performed At No acute cardiopulmonary abnormality. RAD RESULTS Approved by Kyler Unger M.D. [...] RAD RESULTS * US DOPPLER VENOUS W EXTRM BILAT (07/01/2018 10:23 PM) Impressions Performed At 1.[facility], [...] on 07/01/2018 10:39 PM. Performing Organization Address City/State/[facility] Phone Number [facility] * CT [...] on 07/01/2018 4:18 PM. Performing Organization Address [facility] Phone Number [facility] RES[facility] * ECG-SCAN (07/01/2018 2:40 PM) Narrative Performed At Ordered by an unspecified provider. * BNP POC ER (07/01/2018 2:31 PM) BNP POC 123.0 (H) 0 - 100 PG/ML [facility] Performing Organization Address [facility] Phone Number [facility] [address] [place] [address] * POC TROPONIN (07/01/2018 2:31 PM) Prurhghw-U-MLT 0.00 0.00 - 0.05 NG/ML [facility] Performing Organization Address [facility] Phone Number [facility] [address] [place] [address] * UA REFLEX CULTURE LABEL (07/01/2018 2:30 PM) UA Reflex Culture LAB LABEL [facility] Specimen Urine Performing Organization [facility] Phone Number [facility] [address] [place] [address] * URINALYSIS MICROSCOPIC REFLEX TO CULTURE (07/01/2018 [...] MAIN LAB Specimen Urine Performing Organization Address [facility] Phone Number MAIN LAB [address] [place] [address] * URINALYSIS DIPSTICK REFLEX TO CULTURE (07/01/2018 2:30 PM) Color,UA YELLOW [facility] Turbidity,UA CLEAR CLEAR-CLEAR [facility] Specific [place]-Urine 1.010 1.003 - 1.035 [facility] pH,UA 6.0 5.0 - 8.0 [facility] Protein,UA 1+ (A) NEG-NEG [facility] Glucose,UA NEG NEG-NEG [facility] Ketones,UA NEG NEG-NEG [facility] Bilirubin,UA NEG NEG-NEG [facility] Blood,UA 3+ (A) NEG-NEG MAIN LAB Urobilinogen,UA NORMAL NORM-NORMAL MAIN LAB Nitrite,UA NEG NEG-NEG MAIN LAB Leukocytes,UA 2+ (A) NEG-NEG MAIN LAB Urine Ascorbic Acid, UA NEG NEG-NEG MAIN LAB Specimen Urine Performing Organization Address [facility] Phone Number MAIN LAB [address] [place] [address] * CULTURE-URINE W/SENSITIVITY (07/01/2018 2:30 PM) Battery Name URINE CULTURE MAIN LAB Specimen Description URINE MAIN LAB Special Requests NONE MAIN LAB Culture NO GROWTH MAIN LAB Report Status FINAL MAIN LAB 07/02/2018 Specimen Urine Performing Organization Address City/[facility]/Zipcode Phone Number MAIN LAB [address] [place] [address] * MRI PELVIS EXTERNAL IMAGING (06/25/2018) Narrative [...] and does not contain a result. * [facility] EXTERNAL IMAGING (06/17/2018) Narrative Performed At This order has been auto finalized and does not contain a result. from Last 3 Months
--- OUTSIDE RECORDS SUMMARY | 2018-08-14 17:15 | XMS REPORT | Encounter Summary ---
Author Author [facility] Organization [facility] Address Unknown Phone Unavailable Care Team Providers Care Qa Internship Name Role Phone Jeny Garcia MD PCP Reason for Visit * Reason Comments Edema Bilateral leg edema, SOB, no urine output from neph tube * Auth/Cert Status Reason Specialty Diagnoses / Referred By Referred To Procedures Contact Contact Diagnoses Obstructive uropathy Bilateral leg edema Encounter Details Date Type Department Care Team Description 07/01/2018 Hospital Medicine Telemetry Darrick Lazo MD Obstructive uropathy - Encounter [facility] 4th fl Unit [address] [facility] 07/08/2018 46 MS 1045 [address] [place] [address] [place] [address] [phone] [place] [address] [place] [address] [phone] Estela Avila DO [address] [place] [address] [phone] [place] [address] [place] [address] MS [facility] [place] [address] [phone] Social History Tobacco Use Types Packs/Day Years [...] date: 07/08/2018 Attending Physician: LOTTIE AGUILAR Service: [facility] 3405 Physician Summary completed by: Lottie Aguilar MD Reason for hospitalization: 67 year old female who was referred to ED from urology clinice 07/01 for exertional dyspnea and progressive BLE edema. Significant PMH: anxiety, depression, GERD, hypothyroidism, vitamin D deficiency , obesity with BMI 32.2 and recent prolonged admission at [facility] for MEE likely due to an [...] Range Color,UA YELLOW Turbidity,UA CLEAR CLEAR-CLEAR Specific [place]-Urine 1.010 1.003 - 1.035 pH,UA 6.0 5.0 [...] 07/01/18 2:31 PM Result Value Ref Range Ellcfefq-H-ZEP 0.00 0.00 - 0.05 NG/ML BNP POC ER Collection Time: 07/01/18 2:31 PM Result Value Ref Range BNP POC 123.0 (H) 0 - 100 PG/ML Glucose: 89 (07/01/18 1335) Brief Hospital Course: The patient was admitted and the following issues were addressed during this hospitalization: 1. MEE likely due to obstruction complicated by bilateral hydronephrosis and pyuria. Renal and urology were consulted. Work-up at [facility] was significant for the following studies: -Abdominal [...] (06/19) at OSH. -During her admission at [facility], her creatinine peaked at 9. Creatinine at [...] primary care provider refer her to a public safety telecommunicator closer to home. Nephrostomy tubes should be [...] debility. PT and OT recommended home with water quality assistant versus home health. 5. Diet. She was discharged on a low sodium diet. Dietitian was consulted per patient's request for low-sodium education. 6. All other chronic medical issues were stable, so no further changes were made other outpatient regimen. 7. Disposition Discharge to home with [facility]. Condition at Discharge: Stable Discharge Diagnoses: Hospital Problems Active Problems Hydronephrosis Obstructive uropathy Bilateral leg edema Anxiety Major depressive disorder with single episode, in remission (HCC) Gastroesophageal reflux disease without esophagitis Hypothyroidism due to acquired atrophy of thyroid Vitamin D deficiency MEE (acute kidney injury) ([facility]) Pyuria Volume overload Acute deep vein thrombosis (DVT) of distal end of right lower extremity ([facility]) Debility Obesity (BMI 30-39.9) Surgical [...] or concerns regarding your hospital stay. Call [phone] Discharging attending physician: LOTTIE AGUILAR [[id number]] Low Sodium Diet You will need to [...] will also need a referral to a public safety telecommunicator closer to your home. Current Discharge Medication [...] Op with Perry Moseley MD [facility] - IC Exam (CC Exam) [id number] [facility] [address] Pending items needing follow up: none Signed: Lottie Aguilar MD 07/08/2018 cc: Primary Care Physician: Jeny Garcia Verified in this encounter Discharge Instructions * Discharge Instr - Case Management - Roxi Decker RN - 07/08/2018 9:55 AM CDT You have been set up with [facility] for snf, PT and OT. . They will contact you later today or tomorrow to set up your first appointment. It you don't hear from them by tomorrow, please contact them at ([phone]). * Patient Instructions - Cyndie Verasarecharles RN [...] or concerns related to the procedure, call [phone] for Sunday-Sunday 7-5. After-hours and weekends, please call [phone] and ask for the Interventional Arc Welder on-call. in this encounter Medications at Time of Discharge Medication Sig. Disp. Refills Start Date End Date acetaminophen (TYLENOL) Take 1 tablet by mouth 325 mg tablet every 6 hours as needed (headache). apixaban (ELIQUIS) 5 mg Take one tablet by mouth 60 tablet 3 2017 tablet twice daily. calcium carbonate (TUMS) Chew 1 tablet by mouth 500 mg (200 mg elemental twice daily as needed. calcium) chewable tablet carboxymethylcellulose Apply 1 drop [...] DR Take 40 mg by mouth twice 03/22/2018 (PROTONIX) 40 mg daily. tabletIndications: gastroesophageal reflux disease as of this encounter Progress Notes * Michael Murray RN - 07/08/2018 1:12 PM CDT I have reviewed the notes, assessment, and/or procedures performed by Lynda Avelar RN and concur with her documentation unless [...] Vitamin D deficiency MEE (acute kidney injury) ([facility]) Pyuria Volume overload Acute deep [...] day - she would like to find public safety telecommunicator close to home in [place] and has PCP appointment his week Patient discussed with primary team Marisol Arias MD Pager [phone] Subjective Aracelis Espinal is a 67 y.o. [...] 3.4* 3.6 CL 99 98 100 CO2 26 GAP 9 9 10 BUN 36* 36* [...] hours. Invalid input(s): PC02A * Vanessa Castro, PRIVACY OFFICER - 07/08/2018 10:50 AM CDT PHYSICAL THERAPY [...] as indicated. Therapist: Vanessa Castro, Physical therapist water quality assistant Date: 07/08/2018 * Lottie Aguilar MD [...] no BM reported this shift. * Norma Medina RN - 07/07/2018 5:48 PM CDT Shift: day [...] Aracelis Espinal Admission Date: 07/01/2018 Today's Date: 07/07/18 Changes for today assessment and plan noted in bold. Assessment/Plan: 67 year old female with anxiety, depression, GERD, hypothyroidism, vitamin D deficiency, and recent prolonged admission at [facility] for MEE likely due to an [...] (06/19) at OSH. -During her admission at [facility], her creatinine peaked at 9. Creatinine at [...] debility. PT and OT recommended home with water quality assistant versus home health. FEN: -No IVF -Hypokalemia. Replace. -Low Na diet with 2L fluid restriction. Dietitian consult per patient's request for low-sodium education. DVT ppx: Eliquis Full code. Confirm with patient. Kimber (sister) is DPOA: [phone]. Disp: Continue inpatient care. Anticipate discharge Sunday. Will need resumption [facility] at discharge. I spent a total of 45 minutes in pt care today with an estimated 20 minutes spent reviewing chart and coordinating care. Reminder of time was spent examining patient, discussing care plan, and answering patient questions in the patient's room. Complexity of medical decision making is high because of the multi-system nature of disease process. Lottie Aguilar MD Hospitalist [phone] __ Subjective: No overnight events. Difficulty sleeping [...] (LASIX) injection 40 mg 40 mg Intravenous BID(-17) levothyroxine (SYNTHROID) tablet 50 mcg 50 mcg Oral QDAY() nicotine (NICODERM CQ STEP 1) 21 mg/day [...] results for input(s): PHART, PCO2A, PO2ART, HCO3A, Z1CPFJICP in the last 72 hours. * Leydi [...] D deficiency, and recent prolonged admission at [facility] for MEE likely due to an [...] (06/19) at OSH. -During her admission at [facility], her creatinine peaked at 9. Creatinine at [...] debility. PT and OT recommended home with water quality assistant versus home health. FEN: -No IVF -Lytes ok -Low Na diet with 2L fluid restriction. Dietitian consult per patient's request for low-sodium education. DVT ppx: Eliquis Full code. Confirm with patient. Kimber (sister) is DPOA: [phone]. Disp: Continue inpatient care. Anticipate discharge Sunday. Will need resumption [facility] at discharge. I spent a total of 45 minutes in pt care today with an estimated 20 minutes spent reviewing chart and coordinating care. Reminder of time was spent examining patient, discussing care plan, and answering patient questions in the patient's room. Complexity of medical decision making is high because of the multi-system nature of disease process. Lottie Aguilar MD Hospitalist [phone] __ Subjective: No overnight events. Feeling better. [...] bloodstained urine in bag. Laboratory: Recent Labs 07/04/1860207/05/18 0552 07/06/18 0413 NA 132* 135* 134* [...] 3.4* 3.5 Recent Labs 07/04/1860207/05/18 0552 07/06/18 0413 HGB 9.6* 10.2* 9.4* HCT 28.7* 29.7* 27.8* WBC 8.1 8.2 8.3 PLTCT 385 374 383 No results for input(s): PHART, PCO2A, PO2ART, HCO3A, V6NAXSQCS in the last 72 hours. * Debi Zhao RN - 07/06/2018 6:58 AM CDT Shift: Night Mentation: A&Ox4. Cardiac: S1S2. Respiratory: RA. GI/: L&R nephrostomy tubes. Yellow, clear on L; pink on R. Last BM 07/04. Nutrition: Low sodium diet. 2L fluid restriction. Activity: Independent. Pain: C/o headache this shift. Relief with PRN medication. Follow up: Continue to monitor patient and notify physician of any changes. * Norma Medina RN - 07/05/2018 4:14 PM CDT Shift: Day Mentation: Alert and oriented x4 Cardiac: S1, S2 Respiratory: RA, non-labored GI/: voids, BM 07/04 Nutrition: low sodium 2L fluid restriction [...] with primary team Marisol Arias MD Pager [phone] Subjective Aracelis Espinal is a 67 y.o. [...] Vital Signs: 24 Hour Range BP: 111/72 (07/055) Temp: 36.8 C (98.3 F) (07/05 1125) Pulse: 87 (07/05 1125) Respirations: 16 PER MINUTE (07/05 112) SpO2: 92 % (07/05 1125) O2 Delivery: [...] ml Net -3640 ml Vitals: 07/01/18 1223 07/01/18209907/02/18 0909 Weight: 83.9 kg (185 lb) 85.1 [...] hours. Invalid input(s): PC02A * Vanessa Castro, PRIVACY OFFICER - 07/05/2018 10:41 AM CDT PHYSICAL THERAPY PROGRESS NOTE MOBILITY: Mobility Progressive Mobility Level: Walk laps Distance Walked (feet): 400 ft Level of Assistance: Independent Assistive Device: None Time Tolerated: 11-30 minutes Activity Limited By: Fatigue SUBJECTIVE: Subjective Significant hospital events: 67 y.o. F with history of anxiety, depression, HLD with recent prolonged admission to [facility] in [place] for acute renal failure. She was found [...] for: Stairs Therapist: Vanessa Castro, Physical therapist water quality assistant Date: 07/05/2018 * Debi Zhao RN [...] depression, HLD with recent prolonged admission to [facility] in [place] for acute renal failure. She was found [...] renal failure by PCP and sent to [facility], was admitted for about 3 weeks. Cr [...] Pertinent radiology reviewed. Estela Ghosh DO Pager [phone] * Marisol Arias MD - 07/04/2018 2:11 PM CDT Formatting of this note may be different from the original. Renal Progress Note Name: Aracelis Espinal Today's Date: 07/04/2018 Admission Date: 07/01/2018 LOS: 3 days Assessment and Plan Active Problems: Obstructive uropathy Bilateral leg edema Aracelis Espinla is a 67 y.o. female from obstruction [...] with primary team Marisol Arias MD Pager [phone] Subjective Aracelis Espinal is a 67 y.o. [...] 72 hours. Invalid input(s): PC02A * Estela Ghosh DO - 07/04/2018 8:05 AM CDT Formatting of this note may be different from the original. General Progress Note Name: Aracelis Espinal Today's Date: 07/04/2018 Admission Date: 07/01/2018 LOS: 3 days Assessment/Plan: Active Problems: Obstructive uropathy Bilateral leg edema Ms Espinal is a 67 y.o. F with history of anxiety, depression, HLD with recent prolonged admission to [facility] in [place] for acute renal failure. She was found [...] renal failure by PCP and sent to [facility], was admitted for about 3 weeks. Cr [...] obvious tumor or stones, f/u scheduled for 9/17 > Discussed with Dr Arias, concern for [...] injection 1 mg 1 mg Intravenous ONCE [Jan] nicotine (NICODERM CQ STEP 1) 21 [...] PRN and Respiratory Meds:[Jan] acetaminophen Q6H PRN, [Jan] HYDROcodone/acetaminophen Q6H PRN Review of Systems: All [...] Pertinent radiology reviewed. Estela Ghosh DO Pager [phone] * Marbella Espana RN - 07/04/2018 5:25 AM CDT Shift: Night Mentation: A/O x4 Cardiac: S1, S2, regular rhythm Respiratory: RA, non-labored GI/: voids, last BM: 07/02 Nutrition: went NPO at NE Activity: SBA Pain: no c/o pain Family: no family present Follow up: Plan of care is on going * Paris Rea - 07/03/2018 4:33 PM CDT Reason for Visit: Duplicator Punch Set Up Operator Rounds Marlen/Christianity: Unknown Encounter: Patient stated she didn't really need a visit from the Duplicator Punch Set Up Operator, she just needed to get her "plumbing fixed." Patient stated she was receiving good care, but was more that ready to be on her way to a resolution to her health issues. Duplicator Punch Set Up Operator stated she hoped she had resolution very soon, and took her leave. The spiritual care team is available as needed, 04/06, through the campus switchboard ([phone]). For immediate response, please page [phone]. For a response within 24 hours, please submit an order in O2 for a flux tube attendant consult or call the administrative voicemail at [phone]. * Marci Cha RN - 07/03/2018 2:59 PM CDT IR Progress Note Venogram discussed with Dr. Karimi. BLE edema, concern for possible IVC/iliac vein compression. Team okay with 07/04 AM. Labs, meds, allergies okay. Marci Cha [...] with primary team Marisol Arias MD Pager [phone] Subjective Aracelis Espinal is a 67 y.o. [...] Signs: 24 Hour Range BP: 114/63 (07/03 751) Temp: 36.7 C [...] Harjit Wellington M.D. PGY-3 Please page urology implementation consultant with questions SUBJECTIVE: Overnight events: No acute events. Pain controlled.NPO since last night. ambulating. OBJECTIVE: Vital Signs: Most Recent Vital Signs: Past 24 Hours BP: 114/63 (07/03 751) Temp: 36.7 C (98.1 F) (07/03 751) Pulse: 72 (07/03 751) Respirations: 18 PER MINUTE (07/03 751) SpO2: 100 % (07/03 751) O2 Delivery: None (Room Air) (07/03 075) BP: (110-145)/(57-85) Temp: [36.7 C (98 F)-36.8 [...] depression, HLD with recent prolonged admission to [facility] in [place] for acute renal failure. She was found [...] CMS G Code Modifier for Basic Mobility: ARAM G-Codes: Mobility G8978 Current Status: 20-39% Impairment [...] ASSESSMENT and discharge NOTE Patient Name: Aracelis Espinal Room/Bed: [id number] Admitting Diagnosis: Obstructive uropathy Bilateral leg edema Past Medical History: Diagnosis Date Anemia Anxiety disorder Cataract Colon polyps Depression Dyslipidemia Thyroid disorder Ulcer of the stomach and intestine 67 y.o. F with history of anxiety, depression, HLD with recent prolonged admission to [facility] in [place] for acute renal failure. 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 Vision Current Vision: (hx [...] OT needs identified. The[place]: [place] [id number] Date: 07/03/2018 * Estela Ghosh, DO - 07/03/2018 7:57 AM CDT Formatting of this note may be different from the original. General Progress Note Name: Aracelis Espinal Today's Date: 07/03/2018 Admission Date: 07/01/2018 LOS: 2 days Assessment/Plan: Active Problems: Obstructive uropathy Bilateral leg edema Ms Espinal is a 67 y.o. F with history of anxiety, depression, HLD with recent prolonged admission to [facility] in [place] for acute renal failure. She was found [...] renal failure by PCP and sent to [facility], was admitted for about 3 weeks. Cr [...] additional dose of IV lasix today. Continue PRIVACY OFFICER lasix. > Discussed with Dr Arias, concern [...] Pertinent radiology reviewed. Estela Ghosh DO Pager [phone] * Marbella Espana RN - 07/03/2018 5:52 AM CDT Shift: Night Mentation: A/O x4 Cardiac: S1, S2, regular rhythm Respiratory: RA, non-labored GI/: voids, last BM: 07/02 Nutrition: went NPO at NE Activity: SBA Pain: no c/o pain Family: sister present at admission Follow up: Plan of care is on going * Estela Ghosh DO - 07/02/2018 7:07 PM CDT Formatting of this note may be different from the original. General Progress Note Name: Aracelis Espinal Today's Date: 07/02/2018 Admission Date: 07/01/2018 LOS: 1 day Assessment/Plan: Active Problems: Obstructive uropathy Bilateral leg edema Ms Espinal is a 67 y.o. F with history of anxiety, depression, HLD with recent prolonged admission to [facility] in [place] for acute renal failure. She was found [...] renal failure by PCP and sent to [facility], was admitted for about 3 weeks. Cr [...] lasix 40mg x1 and assess response. Continue PRIVACY OFFICER lasix tomorrow > Urine culture negative, pyuria [...] Pertinent radiology reviewed. Estela Ghosh DO Pager [phone] * Cheikh Swain, ELADIO - 07/02/2018 3:14 PM CDT Aspirated packing from dialysis catheter, flushed and repacked with citrate. Dressing changed on dialysis catheter. * Rica Valdez, ELADIO - 07/02/2018 11:55 AM CDT Sedation physician [...] old obese female patient who presented to [facility] in [place] on 06/03/2018 with complaints of fatigue, decreased [...] DVT In bilateral lower extremity. 35 minutes bgz-buvp-sj-face time was spent reviewing outside medical record. in this encounter H&P Notes * Pearl Villa, MSN,WEAPONS DESIGNER - 07/04/2018 7:31 AM CDT Formatting of [...] the previous H&P performed on 07/03/18. Pearl Villa MSN,WEAPONS DESIGNER Pager [phone] * Jessica Baptiste, WEAPONS DESIGNER - 07/02/2018 10:50 AM CDT Formatting of [...] tablet 40 mg 40 mg Oral QAM8 [MAR Hold] levothyroxine (SYNTHROID) tablet 50 mcg 50 mcg Oral QDAY(07) [MAR Hold] nicotine (NICODERM CQ STEP 1) 21 mg/day patch 1 patch 1 patch Transdermal Q24H* [MAR Hold] pantoprazole DR (PROTONIX) tablet 40 mg 40 mg Oral QDAY(21) [MAR Hold] senna/docusate (SENOKOT-S) tablet 1 tablet 1 [...] the previous H&P performed on 07/02/18. Jessica Baptiste, DEBORAH Pager [phone] * Jennifer Esposito MD - 07/01/2018 10:12 PM CDT Formatting of this note may be different from the original. Admission History and Physical Examination Name: Aracelis Espinal Admission Date: 07/01/2018 Assessment/Plan: Active Problems: Obstructive uropathy Bilateral leg edema 67 y.o. female with past medical history significant for anxiety, depression and dyslipidemia who had a recent prolonged hospitalization at [facility] in [place] where she presented with nausea vomiting and [...] who had a recent prolonged hospitalization at [facility] in [place] where she presented with nausea vomiting and [...] Range Color,UA YELLOW Turbidity,UA CLEAR CLEAR-CLEAR Specific [place]-Urine 1.010 1.003 - 1.035 pH,UA 6.0 5.0 [...] 07/01/18 2:31 PM Result Value Ref Range Yvxjwoxi-A-RGD 0.00 0.00 - 0.05 NG/ML BNP POC [...] 07/01/2018 4:18 PM. JENNIFER ESPOSITO MD Pager [phone] in this encounter Consult Notes * Deidre [...] D deficiency, and recent prolonged admission at [facility] for MEE likely due to an [...] and denies any concern for wt loss PRIVACY OFFICER. No GI distress. Still with 2+ pitting [...] flush catheter today Marisol Arias MD Pager [phone] History Reason for Consult: MEE HPI: Aracelis [...] once nephrostomy tubes in place Please call implementation consultant urology resident with questions. Discussed and formulated plan of care with staff surgeon, Dr. Moseley. Fany Andrea MD Urology Resident __ HPI: Aracelis Espinal is a 67 y.o. female with history of bilateral hydronephrosis identified when she presented to [facility] 06/03/18 with Cr 9.3 complaining of fatigue, [...] Discharge Planning Discharge Planning: [facility] -[facility] notified of patient discharging to home today. Orders and AVS faxed to [facility]. Pt's AVS updated with contact information of [facility]. ? Medication Needs Medication Needs: Medication Prior-Auth -NCM notified that patient will discharge to home with Eliquis. Pt already provided with a 30 day free card. NCM notified [facility] to see if prescription will need a PA. PA not needed. Pt's insurance will cover medication. ? Financial ? Legal ? Other Disposition ? Expected Discharge Date Expected Discharge Date: 07/07/18 ? Transportation Does the patient need discharge transport arranged?: No Transportation Name, Phone and Availability #1: sister and Win are living in [facility] Does the patient use Medicaid Transportation?: No ? Next Level of Care (Acute Psych discharges only) ? Discharge Disposition Durable Medical Equipment No service has been selected for the patient. [facility] Destination No service has been selected for the patient. Home Care Service Request Status Selected Specialties Address Phone Number Fax Number [facility] [address] [facility] [id number] Dialysis/Infusion No service has been selected for the patient. Roxi Decker MSN, metal casket assembler [phone] Pager [phone] * Case Mgmt DC Plan - Juan Panchal - 07/05/2018 3:11 PM CDT Formatting of this note may be different from the original. Case Management Progress Note NAME:Aracelis Espinal :1949 AGE: 67 y.o. ADMISSION DATE: 07/01/2018 DAYS ADMITTED: LOS: 4 days Todays Date: 07/05/2018 Plan Anticipate DC home with family support, and resumption of [facility]. Nurse Wood Boatbuilder Apprentice Weekend Needs Instructions for CM W/E Staff: Please notify [facility] of DC, and have Dr. Reeves sign orders and send signed orders, updated clinical information and AVS to [facility]. Teaching Needs Prior to DC: Nephrostomy tubes [...] Medication Needs Medication Needs: Prescription Assistance Program [facility] provide Eliquis 30 day free copay card. ? Financial ? Legal ? Other Disposition ? Expected Discharge Date Expected Discharge Date: 07/07/18 ? Transportation Does the patient need discharge transport arranged?: No Transportation Name, Phone and Availability #1: sister and Win are living in [facility] Does the patient use Medicaid Transportation?: No ? Next Level of Care (Acute Psych discharges only) ? Discharge Disposition Durable Medical Equipment No service has been selected for the patient. [facility] Destination No service has been selected for the patient. Home Care Service Request Status Selected Specialties Address Phone Number Fax Number [facility] Selected Home Health Services [address] [facility] [phone] [facility] Dialysis/Infusion No service has been selected for the patient. Juan Panchal NON DESTRUCTIVE TESTER Integrated Nurse Wood Boatbuilder Apprentice [phone] * Procedures (Immed Post or Bedside) - [...] Well Post-Procedure Condition: stable KATLIN Still Pager [phone] * Procedures (Immed Post or Bedside) - [...] Post-Procedure Condition: stable Jed Dsouza MD Pager [phone] * Case Mgmt DC Plan - Juan [...] Health NCM contact [facility] zigzag tunnel elastic operator, Karen. Confirm patient is current with RN , PT/OT services, and Dr. Garcia to follow. ? Medication Needs ? Financial ? Legal ? Other Disposition ? Expected Discharge Date Expected Discharge Date: 07/05/18 ? Transportation Does the patient need discharge transport arranged?: No Transportation Name, Phone and Availability #1: sister and Win are living in [facility] Does the patient use Medicaid Transportation?: No ? Next Level of Care (Acute Psych discharges only) ? Discharge Disposition Durable Medical Equipment No service has been selected for the patient. Destination No service has been selected for the patient. Home Care Service Request Status Selected Specialties Address Phone Number Fax Number [facility] Selected Home Health Services [address] [facility] [address] [phone] Dialysis/Infusion No service has been selected for the patient. Juan Panchal RN BSN Integrated Nurse Wood Boatbuilder Apprentice [phone]/ [phone] * Procedures (Immed Post or Bedside) - [...] via family trasnport with resumption of [facility] when medically stable. Plan: CM Assessment, Assist PRN with SW/NCM Services, Discharge Planning for Home Anticipated SW met with pt who confirms after being in [facility] for 3 weeks, pt DC on 06/27 with L neph tube and [facility] . Pt denies any concerns with managing Neph tube and drain at home. Pt reports HH was only able to come to home once PRIVACY OFFICER but report they were helpful and would like HH resumed at [place]. Pt denies any concern for DC home with R and L neph tubes. SW notified NCM need for resumption of [facility] at [place]. Pt consulted-recommending home with . PLan for Urology to remove stents at bedside today. Renal following. Patient Address/Phone [address] [facility] [phone] (home) Emergency Contact Extended Emergency Contact Information Primary Emergency Contact: Kimber Perez [facility] Relation: Sister Healthcare Directive Healthcare Directive: Yes, patient has a healthcare directive Type of Healthcare Directive: Durable power of attorney general for healthcare Location of Healthcare Directive: Current and verified in document scanning system Would patient like to fill out a (a new) Healthcare Directive?: N/A Psych Advance Directive (Psych unit only): No, patient does not have a Psych Advance Directive Transportation Does the patient need discharge transport arranged?: No Transportation Name, Phone and Availability #1: are living in [facility] Does the patient use [...] ? PCP Jeny Garcia, , ? Pharmacy [facility] [address] [place] [phone] ? Durable Medical Equipment Durable Medical Equipment at home: None ? Home Health Receiving home health: Yes Agency name: current with chinmay willis to manage L neph tube and dressing changes PRIVACY OFFICER ? Hemodialysis or Peritoneal Dialysis Undergoing hemodialysis or peritoneal dialysis: No ? Tube/Enteral Feeds Receive tube/enteral feeds: No ? Infusion Receive infusions: No ? Private Duty Private duty help used: No ? Home and Community Based Services Home and community based services: No ? Trent White Trent White: No ? Hospice Hospice: No ? Outpatient Therapy PT: No OT: No TINSMITH APPRENTICE: No ? Retirement Facility/Residential SNF: No NH: No ? Inpatient Rehab IPR: No ? Long-Term Acute Care Hospital LTACH: No ? Acute Hospital Stay Acute Hospital Stay: Yes Was patient's stay within the last 30 days?: Yes When did patient receive care?: [facility] on 06/27 Readmission Code Group: 5. Medical [...] Post-Procedure Condition: stable Jed Dsouza MD Pager [phone] * Case Mgmt DC Plan - Xiomara Bragg - 07/02/2018 11:10 AM CDT Plan: DCP Ongoing: SW anticipates pt to DC home with possible penidng needs at [place]. Intervention: Sw attempted to meet with pt [...] to MP E, if questions please page [phone] * ED Notes - Xiomara Langley RN - 07/01/2018 7:24 PM CDT Report given to ELADIO Tyson. * ED Notes - Mary Ann Monroe RN - 07/01/2018 7:08 PM CDT [id number]. Ready. Please call Chelsie @ [phone] for report * ED Notes - Xiomara [...] (06/03/18), Left nephrostomy tube in place(06/19/18) at [facility]. Patient reports having worsening edema from the [...] Range Color,UA YELLOW Turbidity,UA CLEAR CLEAR-CLEAR Specific [place]-Urine 1.010 1.003 - 1.035 pH,UA 6.0 5.0 [...] 5 POC TROPONIN Result Value Ref Range Anzqcexg-Z-TQK 0.00 0.00 - 0.05 NG/ML BNP POC [...] Pt reports she spent three weeks at [facility] in [place] with renal failure and received dialysis. Reports [...] MD Visit [address] [place] [address] [phone] 08/23/2018 Surgery Perry Moseley MD CYSTOURETHROSCOPY WITH [address] URETERAL CATHETERIZATION [address] WITH/ WITHOUT IRRIGATION/ [place] [address] INSTILLATION/ [phone] URETEROPYELOGRAPHY 08/23/2018 Procedure Pass 08/23/2018 Hospital Perry Moseley MD Bilateral ureteral Encounter [address] obstruction [address] [place] [address] [phone] Name Priority Associated Diagnoses Order Schedule BASIC [...] Organization Address City/State/Zipcode Phone Number MAIN LAB [address] [place] [address] * CBC AND DIFF (07/08/2018 5:46 AM) [...] City/State/Zipcode Phone Number [facility] [address] [place] [address] * COMPREHENSIVE METABOLIC PANEL (07/07/2018 6:06 AM) [...] for questions. Specimen Blood Performing Organization Address City/[facility]/Zipcode Phone Number MAIN LAB [address] [place] [address] * CBC AND DIFF (07/07/2018 6:06 AM) [...] MAIN LAB Specimen Blood Performing Organization Address City/[facility]/Zipcode Phone Number [facility] [address] [place] [address] * COMPREHENSIVE METABOLIC PANEL (07/06/2018 4:13 AM) [...] Address City/State/Zipcode Phone Number MAIN LAB [address] [place] [address] * CBC AND DIFF (07/06/2018 4:13 AM) [...] Address City/State/Zipcode Phone Number [facility] MAIN [facility] [address] [place] [address] * COMPREHENSIVE METABOLIC PANEL (07/05/2018 5:52 AM) [...] for questions. Specimen Blood Performing Organization Address City/[facility]/Zipcode Phone Number [facility] MAIN [facility] [address] [place] [address] * CBC AND DIFF (07/05/2018 5:52 AM) [...] MAIN LAB Specimen Blood Performing Organization Address City/[facility]/Zipcode Phone Number [facility] MAIN [facility] [address] [place] [address] * IR CENTRAL VENOUS CATHETER (07/04/2018 4:45 PM) Impressions Performed At Uneventful removal of tunneled right IJ catheter as described. [facility] Gilberto TRENT M.D, the attending radiologist, was present for [...] Narrative Performed At TUNNELED CATHETER REMOVAL [facility] RESULTS CLINICAL INDICATION: Completion of therapy. OPERATORS:KATLIN [...] of tunneled right IJ catheter as described. IGilberto M.D, the attending radiologist, was present for [...] needle. Access was maintained with a 6 [place] sheath. A 5 [place] pigtail catheter was advanced over a 0.035 [...] needle. Access was maintained with a 6 [place] sheath. A 5 [place] pigtail catheter was advanced over a 0.035 [...] Organization Address City/State/Zipcode Phone Number MAIN LAB [address] [place] [address] * CBC AND DIFF (07/04/2018 6:03 AM) [...] MAIN LAB Specimen Blood Performing Organization Address [facility]/Zipcode Phone Number [facility] MAIN [facility] [address] [place] [address] * PROTEIN/CR RATIO,UR RAN (07/03/2018 2:00 PM) Protein, Random 10 MG/DL [facility] Creatinine, Random 32 MG/DL [facility] Protein/CR ratio 0.3 [facility]IN [facility] Specimen Urine - Urine Performing Organization Address [facility] [[email or web address] Phone Number [facility] MAIN [facility] [address] [place] [address] * COMPREHENSIVE METABOLIC PANEL (07/03/2018 6:43 AM) [...] for questions. Specimen Blood Performing Organization Address City/[facility]/Zipcode Phone Number [facility] MAIN [facility] [address] [place] [address] * CBC AND DIFF (07/03/2018 6:43 AM) [...] MAIN LAB Specimen Blood Performing Organization Address City/[facility]/Zipcode Phone Number [facility] MAIN [facility] [address] [place] [address] * IRON + BINDING CAPACITY + %SAT+ [...] City/State/Zipcode Phone Number [facility]IN [facility] [address] [place] [address] * IR ASPIRATION/DRAIN (07/02/2018 12:13 PM) Impressions [...] set was then removed and an 8 [place] pigtail catheter was advanced into the renal pelvis. The [place] loop was formed. Contrast was instilled into [...] and obstructive uropathy and bilateral hydronephrosis. Technique: ISteven M.D, the attending radiologist, was present for [...] set was then removed and an 8 [place] pigtail catheter was advanced into the renal pelvis. The [place] loop was formed. Contrast was instilled into [...] OTHER OUTSIDE LAB S' Cardiology Ultrasound Siemens [id number] OTHER OUTSIDE LAB Machine Left Ventricle Mass [...] for questions. Specimen Blood Performing Organization Address City/[facility]/Zipcode Phone Number MAIN LAB [address] [place] [address] * CBC AND DIFF (07/02/2018 6:18 AM) [...] MAIN LAB Specimen Blood Performing Organization Address City/[facility] [[email or web address] Phone Number [facility] MAIN [facility] [address] [place] [address] * TSH WITH FREE T4 REFLEX (07/02/2018 6:18 AM) TSH 2.360 0.35 - 5.00 MCU/ML [facility] MAIN [facility] Specimen Blood Performing Organization Address City/[facility]/Zipcode Phone Number [facility] MAIN [facility] [address] [place] [address] * BNP (B-TYPE NATRIURETIC PEPTI) (07/02/2018 6:18 AM) B Type Natriuretic 71.0 0 - 100 PG/ML [facility] Peptide Specimen Blood Performing Organization Address [facility]/Zipcode Phone Number [facility] MAIN [facility] [address] [place] [address] * PHOSPHORUS (07/02/2018 6:18 AM) Phosphorus 4.9 (H) 2.0 - 4.0 MG/DL [facility]IN [facility] Specimen Blood Performing Organization Address [facility]/Zipcode Phone Number MAIN LAB [address] [place] [address] * MAGNESIUM (07/02/2018 6:18 AM) Magnesium 2.0 1.6 - 2.6 mg/dL [facility]IN [facility] Specimen Blood Performing Organization Address [facility] [[email or web address] Phone Number MAIN LAB [address] [place] [address] * CHEST SINGLE VIEW (07/02/2018 6:07 AM) [...] PM. Performing Organization Address City/State/Zipcode Phone Number RAD RESULTS * BNP POC ER (07/01/2018 2:31 PM) BNP POC 123.0 (H) 0 - 100 PG/ML [facility]IN [facility] Performing Organization Address City/[facility]/Zipcode Phone Number MAIN LAB [address] [place] [address] * POC TROPONIN (07/01/2018 2:31 PM) Bifxxruk-K-SDG 0.00 0.00 - 0.05 NG/ML [facility]IN [facility] Performing Organization Address [facility] [[email or web address] Phone Number [facility] MAIN [facility] [address] [place] [address] * CULTURE-URINE W/SENSITIVITY (07/01/2018 2:30 PM) Battery Name URINE CULTURE [facility] Specimen Description URINE [facility] Special Requests NONE [facility] Culture NO GROWTH [facility] Report Status FINAL [facility] 07/02/2018 Specimen Urine Performing Organization Address [facility] [[email or web address] Phone Number [facility] MAIN [facility] [address] [place] [address] * UA REFLEX CULTURE LABEL (07/01/2018 2:30 PM) UA Reflex Culture LAB LABEL [facility] Specimen Urine Performing Organization Address [facility] [[email or web address]]cout Phone Number [facility] MAIN [facility] [address] [place] [address] * URINALYSIS MICROSCOPIC REFLEX TO CULTURE (07/01/2018 [...] [facility] Bacteria,UA MODERATE (A) NEG-NEG MAIN LAB Squamous Epithelial Cells 0-2 0 - 5 MAIN LAB Specimen Urine Performing Organization Address [facility] [[email or web address] Phone Number [facility] MAIN [facility] [address] [place] [address] * URINALYSIS DIPSTICK REFLEX TO CULTURE (07/01/2018 2:30 PM) Color,UA YELLOW [facility] Turbidity,UA CLEAR CLEAR-CLEAR [facility] Specific [place]-Urine 1.010 1.003 - 1.035 [facility] pH,UA 6.0 5.0 - 8.0 [facility] Protein,UA 1+ (A) NEG-NEG [facility] Glucose,UA NEG NEG-NEG [facility] Ketones,UA NEG NEG-NEG [facility] Bilirubin,UA NEG NEG-NEG MAIN LAB Blood,UA 3+ (A) NEG-NEG [facility] Urobilinogen,UA NORMAL NORM-NORMAL [facility] Nitrite,UA NEG NEG-NEG [facility] Leukocytes,UA 2+ (A) NEG-NEG [facility] Urine Ascorbic Acid, UA NEG NEG-NEG [facility] Specimen Urine Performing Organization Address [facility] [[email or web address] Phone Number MAIN LAB [address] [place] [address] * MAGNESIUM (07/01/2018 1:35 PM) Magnesium 2.0 1.6 - 2.6 mg/dL [facility]IN [facility] Specimen Blood Performing Organization Address [facility] [[email or web address] Phone Number MAIN LAB [address] [place] [address] * COMPREHENSIVE METABOLIC PANEL (07/01/2018 1:35 PM) [...] for questions. Specimen Blood Performing Organization Address [facility]/Zipcode Phone Number MAIN LAB [address] [place] [address] * CBC AND DIFF (07/01/2018 1:35 PM) [...] MAIN LAB Specimen Blood Performing Organization Address City/[facility]/Zipcode Phone Number [facility]IN [facility] [address] [place] [address] in this encounter Visit Diagnoses Diagnosis Hydronephrosis, unspecified hydronephrosis type - Primary Obstructive uropathy Urinary obstruction, unspecified Bilateral leg edema Edema Other hypervolemia Acute deep vein thrombosis (DVT) of distal end of right lower extremity ([facility]) Anxiety Anxiety state, unspecified Major depressive disorder with single episode, in remission ([facility]) Gastroesophageal reflux disease without esophagitis Esophageal reflux [...] mg 650 mg, Oral, ONCE, 1 dose, Sun07/01/18 16:48 CDT at 1645, TOTAL ACETAMINOPHEN DOSE [...] TWICE DAILY, First dose on 08:34 CDT Sun07/05/18 at 2100, Until Discontinued, May crush 5 [...] CDT 25-50 mcg, Intravenous, ONCE, 1 dose, [facility] 07/02/18 at 1115, Pre-Procedure (IR) fentaNYL citrate PF (SUBLIMAZE) Given 07/04/2018 50 mcg injection 50 mcg 08:39 CDT 50 mcg, Intravenous, ONCE, 1 dose, [facility] 07/04/18 at 0745 fentaNYL citrate PF (SUBLIMAZE) Given 07/02/2018 50 mcg injection 11:59 CDT INTRA-PROCEDURE MED, Starting [facility] 07/02/18 at 1159, Until [facility] 07/02/18 at 1159 fentaNYL citrate PF (SUBLIMAZE) Given 07/04/2018 50 mcg injection 08:51 CDT INTRA-PROCEDURE MED, Starting [facility] 07/04/18 at 0851, Until [facility] 07/04/18 at 0851 furosemide (LASIX) injection 40 mg Given 07/02/2018 40 mg 40 mg, Intravenous, ONCE, 1 dose, Tue 15:36 CDT 07/02/18 at 1430, PROTECT FROM LIGHT furosemide (LASIX) injection 40 mg Given 07/03/2018 40 mg 40 mg, Intravenous, ONCE, 1 dose, Sun 14:01 CDT 07/03/18 at 1345, PROTECT FROM LIGHT furosemide (LASIX) injection 40 mg Given 07/04/2018 40 mg 40 mg, Intravenous, DAILY, First dose on 11:22 CDT [facility] 07/04/18 at 1115, Until Discontinued, PROTECT [...]
--- OUTSIDE RECORDS SUMMARY | 2018-08-14 17:15 | XMS REPORT | Encounter Summary ---
Author Author [facility] Organization [facility] Address Unknown Phone Unavailable Care Team Providers Care Loop Sewer Name Role Phone No Pcp, Na PCP Unavailable Jeny Garcia MD PCP Encounter Details Date Type Department Care Team Description 06/27/2018 Ancillary Rad Outpatient, Radiologist Diagnosis unknown Orders [address] [place] [address] Social History Tobacco Use Types Packs/Day Years Used Date Never Assessed Sex Assigned at Date Recorded Not on file as of this encounter Plan of Treatment Date Type Specialty Care Team Description 08/15/2018 PAC Office Anesthesiology Perry Moseley MD Visit [address] [place] [address] [phone] 08/23/2018 Surgery Perry Moseley MD CYSTOURETHROSCOPY WITH [address] URETERAL CATHETERIZATION [address] WITH/ WITHOUT IRRIGATION/ [place] [address] INSTILLATION/ [phone] URETEROPYELOGRAPHY 08/23/2018 Procedure Pass 08/23/2018 Hospital Perry Moseley MD Bilateral ureteral Encounter [address] [place] [address] [phone] as of this encounter Results * MRI [...]
--- OUTSIDE RECORDS SUMMARY | 2018-08-14 17:15 | XMS REPORT | Encounter Summary ---
Author Author [facility] Organization [facility] Address Unknown Phone Unavailable Care Team Providers Care Craniologist Name Role Phone Jeny Garcia MD PCP Encounter Details Date Type Department Care Team Description 07/01/2018 Procedure Pass Medicine Telemetry [facility] [address] [place] [address] Social History Tobacco Use Types Packs/Day Years [...] MD Visit [address] [place] [address] [phone] 08/23/2018 Surgery Perry Moseley MD CYSTOURETHROSCOPY WITH [address] URETERAL CATHETERIZATION [address] WITH/ WITHOUT IRRIGATION/ [place] [address] INSTILLATION/ [phone] URETEROPYELOGRAPHY 08/23/2018 Procedure Pass 08/23/2018 Hospital Perry Moseley MD Bilateral ureteral Encounter [address] [place] [address] [phone] as of this encounter Visit Diagnoses Not on filein this encounter
--- OUTSIDE RECORDS SUMMARY | 2018-08-14 17:15 | XMS REPORT | Encounter Summary ---
Author Author [facility] Organization [facility] Address Unknown Phone Unavailable Care Team Providers Care Rail Switchman Name Role Phone Jeny Garcia MD PCP Reason for Visit * Reason Comments Hydronephrosis * Consult, Test & Treat (Routine) Status Reason Specialty Diagnoses / Referred By Referred To Procedures Contact Contact No Auth Needed Urology Diagnoses Perry Moseley MD New - [address] Obstruct[address] Neuropathy/Urina [place], [place] [address] Recs from Phone: [place] [phone] P rocedures NEW PATIENT Encounter Details Date Type Department Care Team Description 07/01/2018 Office Visit [facility] Perry Moseley MD Hydronephrosis, Physicians - Urology [address] unspecified Ortho and Medical [address] hydronephrosis type [address] [place] [address] [phone] [place] [address] Social History Tobacco Use Types [...] F referred for bilateral hydronephrosis. Presented to [facility] with Cr 9.3 complaining of fatigue, nausea/vomiting, [...] MD Visit [address] [place], [place] [id number] 08/23/2018 Surgery Perry Moseley MD CYSTOURETHROSCOPY WITH [address] URETERAL CATHETERIZATION [address] WITH/ WITHOUT IRRIGATION/ [place] [address] INSTILLATION/ [phone] URETEROPYELOGRAPHY 08/23/2018 Procedure Pass 08/23/2018 [facility] Perry Moseley MD Bilateral ureteral Encounter [address] [place], [place] [address] as of this encounter Visit Diagnoses Diagnosis Hydronephrosis, unspecified hydronephrosis type
--- OUTSIDE RECORDS SUMMARY | 2018-08-14 17:16 | XMS REPORT | Encounter Summary ---
Author Author [facility] Organization [facility] Address Unknown Phone Unavailable Care Team Providers Care Gallery Intern Name Role Phone PCP Unavailable Encounter Details Date Type Department Care Team Description [facility] [address] fl [address] [place], [place] [id number] Social History Tobacco Use Types Packs/Day Years [...] gastroesophageal reflux disease as of this encounter Plan of Treatment Date Type Specialty Care Team Description 08/15/2018 PAC Office Anesthesiology Perry Moseley MD Visit [address] [place] [address] [phone] 08/23/2018 Surgery Perry Moseley MD CYSTOURETHROSCOPY WITH [address] URETERAL CATHETERIZATION [address] WITH/ WITHOUT IRRIGATION/ [place] [address] INSTILLATION/ [phone] URETEROPYELOGRAPHY 08/23/2018 Procedure Pass 08/23/2018 Hospital Perry Moseley MD Bilateral ureteral Encounter [address] [place] [address] [phone] as of this encounter Procedures Procedure Name [...]
--- OUTSIDE RECORDS SUMMARY | 2018-08-14 17:16 | XMS REPORT | Encounter Summary ---
Author Author [facility] Organization [facility] Address Unknown Phone Unavailable Care Team Providers Care Immigration Services Officer Name Role Phone PCP Unavailable Encounter Details Date Type Department Care Team Description 06/10/2018 Hospital [facility] Encounter Hospital Radiology [facility] 2nd fl [address] [place], [place] [address] Social History Tobacco Use Types Packs/Day Years [...] MD Visit [address] [place] [address] [phone] 08/23/2018 Surgery Perry Moseley MD CYSTOURETHROSCOPY WITH [address] URETERAL CATHETERIZATION [address] WITH/ WITHOUT IRRIGATION/ [place] [address] INSTILLATION/ [phone] URETEROPYELOGRAPHY 08/23/2018 Procedure Pass 08/23/2018 Hospital Perry Moseley MD Bilateral ureteral Encounter [address] [place] [address] [phone] as of this encounter Procedures Procedure Name [...]
--- OUTSIDE RECORDS SUMMARY | 2018-08-14 17:16 | XMS REPORT | Continuity of Care Document ---
Author Author [facility] Organization [facility] Address Unknown Phone Unavailable Allergies Active Description Code Type Severity Reaction Onset Reported/Identified Relationship to Patient Clinical Status Yes codeine [id number] Drug Allergy Unknown N/V 03/04/2012 Medications There [...] MAMMOGRAM FOR MALIGNANT NE 10/15/2017 VASHTI DAVILA WASTE PAPER HAMMERMILL OPERATOR Ot Z12.31 ENCNTR SCREEN MAMMOGRAM FOR MALIGNANT [...] 02/01/2018 PAYTON GILLESPIE MD Ot Z79.899 OTHER SNF (CURRENT) DRUG THERAPY 02/04/2018 PAYTON GILLESPIE MD Ot E07.9 DISORDER OF THYROID, UNSPECIFIED 02/04/2018 PAYTON GILLESPIE MD Ot F17.210 NICOTINE DEPENDENCE, CIGARETTES, UNCOMPL 02/04/2018 PAYTON GILLESPIE MD Ot F32.9 MAJOR DEPRESSIVE DISORDER, SINGLE EPISOD 02/04/2018 VERNA MOROCHO, PAYTON Johnson Ot H26.9 UNSPECIFIED CATARACT 02/04/2018 VERNA MOROCHO, PAYTON L Ot R51 HEADACHE 02/04/2018 PAYTON GILLESPIE MD Ot Z79.899 OTHER FINANCE ADMIN (CURRENT) DRUG THERAPY 02/04/2018 PAYTON GILLESPIE MD Ot E07.9 DISORDER OF THYROID, UNSPECIFIED 02/04/2018 VERNA MOROCHO, PAYTON Johnson Ot F17.210 NICOTINE DEPENDENCE, CIGARETTES, UNCOMPL 02/04/2018 PAYTON GILLESPIE MD Ot F32.9 MAJOR DEPRESSIVE DISORDER, SINGLE EPISOD 02/04/2018 PAYTON GILLESPIE MD Ot H26.9 UNSPECIFIED CATARACT 02/04/2018 PAYTON GILLESPIE MD Ot R51 HEADACHE 02/04/2018 PAYTON GILLESPIE MD Ot Z79.899 OTHER FINANCE ADMIN (CURRENT) DRUG THERAPY 05/31/2018 TYELR CLANCY MD Ot 793.89 OTH (ABN) FINDINGS [...] Status Pt. Type Provider Facility Loc./Unit Complaint [id number] 05/31/2018 07:42:00 05/31/2018 23:59:59 CLS Outpatient VASHTI DAVILA APRN [facility] RAD CONSTIPATION [id number] 02/01/2018 11:22:00 02/01/2018 13:10:00 DIS Outpatient PAYTON GILLESPIE MD [facility] SDC CATARACT [id number] 01/28/2018 10:30:00 01/28/2018 11:06:00 DIS Outpatient PAYTON GILLESPIE MD [facility] PREOP CATARACT [id number] 10/01/2017 07:01:00 10/01/2017 23:59:59 CLS Outpatient VASHTI DAVILA APRN [facility] RAD SCREENING [id number] 10/04/2016 08:41:00 10/04/2016 23:59:59 CLS Outpatient JAVIER DISLA MD [facility] RAD SCREENING [id number] 09/20/2015 11:06:00 09/20/2015 23:59:59 CLS Outpatient JAVIER DISLA MD [facility] RAD SCREENING [id number] 09/29/2014 07:41:00 09/29/2014 23:59:59 CLS Outpatient TYLER CLANCY MD [facility] RAD ABN MAMMO [id number] 09/29/2013 07:30:00 09/29/2013 23:59:59 CLS Outpatient TYLER CLANCY MD [facility] RAD ABN MAMMO [id number] 09/11/2013 06:54:00 09/11/2013 23:59:59 CLS Outpatient TYLER CLANCY MD [facility] RAD SCREENING [id number] 09/29/2014 07:45:00 Document Registration [id number] 09/29/2014 07:45:00 Document Registration [id number] 09/29/2014 07:45:00 Document Registration [id number] 09/29/2014 07:45:00 Document Registration [id number] 09/10/2012 08:25:00 Document Registration [id number] 03/07/2012 05:47:00 Document Registration [id number] 03/04/2012 14:23:00 Document Registration [id number] 04/15/2010 09:45:00 Document Registration [id number] 05/26/2009 14:23:00 Document Registration [id number] 04/28/2009 14:02:00 Document Registration [id number] 09/10/2017 13:35:31 09/10/2017 23:59:59 [facility] Outpatient
--- OUTSIDE RECORDS SUMMARY | 2018-08-14 17:16 | XMS REPORT | Encounter Summary ---
Author Author [facility] Organization [facility] Address Unknown Phone Unavailable Care Team Providers Care Assistant Farm Operations Manager Name Role Phone PCP Unavailable Encounter Details Date Type Department Care Team Description 06/19/2018 Hospital [facility] Encounter Hospital [facility] 2nd fl [address] [place], [place] [id number] Social History Tobacco Use Types Packs/Day Years [...] MD Visit [address] [place] [address] [phone] 08/23/2018 Surgery Perry Moseley MD CYSTOURETHROSCOPY WITH [address] URETERAL CATHETERIZATION [address] WITH/ WITHOUT IRRIGATION/ [place] [address] INSTILLATION/ [phone] URETEROPYELOGRAPHY 08/23/2018 Procedure Pass 08/23/2018 Hospital Perry Moseley MD Bilateral ureteral Encounter [address] obstruction [address] [place] [address] [phone] as of this encounter Procedures Procedure Name Priority Date/Time Associated Diagnosis Comments [facility] Routine 06/19/2018 Diagnosis unknown Results for this 12:15 AM CDT procedure are in the results section. in this encounter Results * [facility] EXTERNAL IMAGING (06/19/2018 12:15 AM) Narrative Performed At This order has been auto finalized and does not contain a result. in this encounter Visit Diagnoses Diagnosis Diagnosis unknown Other unknown and unspecified cause of morbidity or mortality
--- OUTSIDE RECORDS SUMMARY | 2018-08-14 17:16 | XMS REPORT | Encounter Summary ---
Author Author [facility] Organization [facility] Address Unknown Phone Unavailable Care Team Providers Care Director Financial Analysis Name Role Phone PCP Unavailable Encounter Details Date Type Department Care Team Description 06/17/2018 Hospital [facility] Encounter Hospital Radiology Main Hospital 2nd fl [address] [place], [place] [id number] Social History Tobacco Use Types Packs/Day Years [...] MD Visit [address] [place] [address] [phone] 08/23/2018 Surgery Perry Moseley MD CYSTOURETHROSCOPY WITH [address] URETERAL CATHETERIZATION [address] WITH/ WITHOUT IRRIGATION/ [place] [address] INSTILLATION/ [phone] URETEROPYELOGRAPHY 08/23/2018 Procedure Pass 08/23/2018 Hospital Perry Moseley MD Bilateral ureteral Encounter [address] [place] [address] [phone] as of this encounter Procedures Procedure Name Priority Date/Time Associated Diagnosis Comments [facility] EXTERNAL IMAGING Routine 06/17/2018 Diagnosis unknown Results for this 12:00 AM CDT procedure are in the results section. in this encounter Results * [facility] EXTERNAL IMAGING (06/17/2018) Narrative Performed At This order has been auto finalized and does not contain a result. in this encounter Visit Diagnoses Diagnosis Diagnosis unknown Other unknown and unspecified cause of morbidity or mortality
--- OUTSIDE RECORDS SUMMARY | 2018-08-14 17:16 | XMS REPORT | Encounter Summary ---
Author Author [facility] Organization [facility] Address Unknown Phone Unavailable Care Team Providers Care Wire Turning Machine Operator Name Role Phone PCP Unavailable Encounter Details Date Type Department Care Team Description 06/04/2018 Hospital [facility] Encounter Hospital Radiology Main Hospital 2nd fl [address] [place], [place] [id number] Social History Tobacco Use Types Packs/Day Years [...] MD Visit [address] [place] [address] [phone] 08/23/2018 Surgery Perry Moseley MD CYSTOURETHROSCOPY WITH [address] URETERAL CATHE[address]IZATION [address] WITH/ WITHOUT IRRIGATION/ [place] [address] INSTILLATION/ [phone] URETEROPYELOGRAPHY 08/23/2018 Procedure Pass 08/23/2018 Hospital Perry Moseley MD Bilateral ureteral Encounter [address] [place] [address] [phone] as of this encounter Procedures Procedure Name Priority Date/Time Associated Diagnosis Comments ECG-SCAN 07/01/2018 Results for this 2:40 PM CDT procedure are in the results section. [facility] EXTERNAL IMAGING Routine 06/04/2018 Diagnosis unknown Results for this 12:00 AM CDT procedure are in the results section. in this encounter Results * ECG-SCAN (07/01/2018 2:40 PM) Narrative Performed At Ordered by an unspecified provider. * [facility] EXTERNAL IMAGING (06/04/2018) Narrative Performed At This order has been auto finalized and does not contain a result. in this encounter Visit Diagnoses Diagnosis Diagnosis unknown Other unknown and unspecified cause of morbidity or mortality
--- OUTSIDE RECORDS SUMMARY | 2018-08-14 17:16 | XMS REPORT | Encounter Summary ---
Author Author [facility] Organization [facility] Address Unknown Phone Unavailable Care Team Providers Care High School Principal Name Role Phone PCP Unavailable Encounter Details Date Type Department Care Team Description 06/25/2018 Hospital [facility] Encounter Hospital Radiology Main Hospital 2nd fl [address] [place], [place] [id number] Social History Tobacco Use Types Packs/Day Years [...] MD Visit [address] [place] [address] [phone] 08/23/2018 Surgery Perry Moseley MD CYSTOURETHROSCOPY WITH [address] URETERAL CATHETERIZATION [address] WITH/ WITHOUT IRRIGATION/ [place] [address] INSTILLATION/ [phone] URETEROPYELOGRAPHY 08/23/2018 Procedure Pass 08/23/2018 Hospital Perry Moseley MD Bilateral ureteral Encounter [address] [place] [address] [phone] as of this encounter Procedures Procedure Name [...]
--- OUTSIDE RECORDS SUMMARY | 2018-08-14 17:16 | XMS REPORT | Encounter Summary ---
Author Author [facility] Organization [facility] Address Unknown Phone Unavailable Care Team Providers Care Fish Bait Picker Name Role Phone PCP Unavailable Encounter Details Date Type Department Care Team Description 06/05/2018 Hospital [facility] Encounter Hospital Rad[facility] Main Hospital 2nd fl [address] [place], [place] [phone] Social History Tobacco Use Types Packs/Day Years [...] MD Visit [address] [place] [address] [phone] 08/23/2018 Surgery Perry Moseley MD CYSTOURETHROSCOPY WITH [address] URETERAL CATHE[address]IZATION [address] WITH/ WITHOUT IRRIGATION/ [place] [address] INSTILLATION/ [phone] URETEROPYELOGRAPHY 08/23/2018 Procedure Pass 08/23/2018 Hospital Perry Moseley MD Bilateral ureteral Encounter [address] [place] [address] [phone] as of this encounter Procedures Procedure Name Priority Date/Time Associated Diagnosis Comments [facility] Routine 06/05/2018 Diagnosis unknown Results for this 12:00 AM CDT procedure are in the results section. in this encounter Results * IR [facility] EXTERNAL IMAGING (06/05/2018) Narrative Performed At This order has been auto finalized and does not contain a result. in this encounter Visit Diagnoses Diagnosis Diagnosis unknown Other unknown and unspecified cause of morbidity or mortality
--- OUTSIDE RECORDS SUMMARY | 2018-08-14 17:16 | XMS REPORT | Encounter Summary ---
Author Author [facility] Address Unknown Phone Unavailable Care Team Providers Care Clinical Transplant Coordinator Name Role Phone PCP Unavailable Encounter Details Date Type Department Care Team Description 06/19/2018 Hospital [facility] Encounter Hospital Radiology Main Hospital 2nd fl [address] [place], [place] [phone] Social History Tobacco Use Types Packs/Day Years [...] MD Visit [address] [place] [address] [phone] 08/23/2018 Surgery Perry Moseley MD CYSTOURETHROSCOPY WITH [address] URETERAL CATHE[address]IZ[address] WITH/ WITHOUT IRRIGATION/ [place] [address] INSTILLATION/ [phone] URETEROPYELOGRAPHY 08/23/2018 Procedure Pass 08/23/2018 Hospital Perry Moseley MD Bilateral ureteral Encounter [address] [place] [address] [phone] as of this encounter Procedures Procedure Name [...]
--- OUTSIDE RECORDS SUMMARY | 2018-08-14 17:16 | XMS REPORT | Encounter Summary ---
Author Author [facility] Organization [facility] Address Unknown Phone Unavailable Care Team Providers Care B2B Sales Representative Name Role Phone PCP Unavailable Encounter Details Date Type Department Care Team Description 06/15/2018 Hospital [facility] Encounter Hospital Radiology Main Hospital 2nd fl [address] [place], [place] [phone] Social History Tobacco Use Types Packs/Day Years [...] MD Visit [address] [place] [address] [phone] 08/23/2018 Surgery Perry Moseley MD CYSTOURETHROSCOPY WITH [address] URETERAL CATHE[address]IZ[address] WITH/ WITHOUT IRRIGATION/ [place] [address] INSTILLATION/ [phone] URETEROPYELOGRAPHY 08/23/2018 Procedure Pass 08/23/2018 Hospital Perry Moseley MD Bilateral ureteral Encounter [address] [place] [address] [phone] as of this encounter Procedures Procedure Name [...]
--- OUTSIDE RECORDS SUMMARY | 2018-08-14 17:16 | XMS REPORT | Encounter Summary ---
Author Author [facility] Organization [facility] Address Unknown Phone Unavailable Care Team Providers Care Rail Assembler Name Role Phone PCP Unavailable Encounter Details Date Type Department Care Team Description 06/24/2018 Hospital [facility] Encounter Hospital Radiology Main Hospital 2nd fl [address] [place], [place] [phone] Social History Tobacco Use Types Packs/Day Years [...] MD Visit [address] [place] [address] [phone] 08/23/2018 Surgery Perry Moseley MD CYSTOURETHROSCOPY WITH [address] URETERAL CAT[address]IZ[address] WITH/ WITHOUT IRRIGATION/ [place] [address] INSTILLATION/ [phone] URETEROPYELOGRAPHY 08/23/2018 Procedure Pass 08/23/2018 Hospital Perry Moseley MD Bilateral ureteral Encounter [address] [place] [address] [phone] as of this encounter Procedures Procedure Name [...]
--- OUTSIDE RECORDS SUMMARY | 2018-08-14 17:16 | XMS REPORT | Encounter Summary ---
Author Author [facility] Organization [facility] Address Unknown Phone Unavailable Care Team Providers Care Hand Outside Cutter Name Role Phone PCP Unavailable Encounter Details Date Type Department Care Team Description 06/03/2018 Hospital [facility] Encounter Hospital Radiology Main Hospital 2nd fl [address] [place], [place] [phone] Social History Tobacco Use Types Packs/Day Years [...] MD Visit [address] [place] [address] [phone] 08/23/2018 Surgery Perry Moseley MD CYSTOURETHROSCOPY WITH [address] URETERAL CAT[address]IZ[address] WITH/ WITHOUT IRRIGATION/ [place] [address] INSTILLATION/ [phone] URETEROPYELOGRAPHY 08/23/2018 Procedure Pass 08/23/2018 Hospital Perry Moseley MD Bilateral ureteral Encounter [address] [place] [address] [phone] as of this encounter Procedures Procedure Name [...]
[2018-08-14] MEDS ORDERED: NS IV 1000 ML 2,000 ML IV ONE (17:45)
[2018-08-14] MEDS ORDERED: cefTRIAXone FOR IV USE 1,000 MG in NS (IVPB) 50 ML IV ONE (17:45)
[2018-08-14] MEDS ORDERED: ONDANSETRON 4 MG/2 ML (SDV) Z0FRAN IV STA (17:45)
[2018-08-14] MEDS ORDERED: ACETAMINOPHEN 500 MG TAB (TYLENOL) PO PRN (17:45)
--- NOTE | 2018-08-14 17:53 | ED General ---
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 They cannot find a source for why she had strictures she has no history of radiation, stones, severe infections. Patient to and they put in double nephrostomy tubes. Yesterday she was feeling poorly lots of nausea so she came to the ER was given some fluid Zofran and a Protonix shot and a scope, EGD which found gastritis. She felt better so she went home. Today she is having nausea feeling worse. Her home health nurse went to see her found that she had a fever of 103.1, heart rate of 122 and a blood pressure of 94/46. Patient has not been on antibiotic last month. She does not feel feverish. If she has to be admitted she prefers to be transferred back to . (XAVI PENN) Allergies and Home Medications Allergies Coded Allergies: codeine (Unverified Allergy, Unknown, N/V, 08/14/18) Home Medications Apixaban 5 Mg Tablet, 5 MG PO BID, (Reported) Docusate Sodium 100 Mg Tablet, 100 MG PO DAILY, (Reported) Levothyroxine Sodium 50 Mcg Tablet, 50 MCG PO DAILY, (Reported) Pantoprazole Sodium 40 Mg Tablet.dr, 40 MG PO DAILY, (Reported) [water pill] , 1 TAB PO DAILY, (Reported) Patient Home Medication List Home Medication List Reviewed: Yes (XAVI PENN) Review of Systems Review of Systems Constitutional: No chills, No diaphoresis, No fever; malaise, weakness EENTM: No hearing loss, No ear pain Respiratory: No cough, No short of breath Cardiovascular: No chest pain, No edema Gastrointestinal: No abdominal pain, No constipation, No diarrhea; nausea; No vomiting Genitourinary: dysuria, other (urine leaking around the nephrostomy tubes.) Musculoskeletal: No back pain, No joint pain (XAVI PENN) Past Alzppxl-Fngwil-Odacww Hx Patient Social History Type Used: Cigarettes Recent Foreign Travel: No Contact w/Someone Who Travel: No Recent Hopitalizations: Yes (IN JUN 2018) (XAVI PENN) Immunizations Up To Date Date of Pneumonia Vaccine: Sep 06, 2010 (XAVI PENN) Past Medical History Surgeries: Yes Gallbladder Cardiac: No Reproductive Disorders: No Endocrine: Yes Hypothyroidsim Depression (XAVI PENN) Physical Exam-Suspected Sepsis Physical Exam Vital Signs Vital Signs - First Documented 08/14/18 17:20 Temp 102.5 Pulse 116 Resp 18 B/P (MAP) 92/63 (73) Pulse Ox 92 O2 Delivery Room Air (ANGELA TITUS MD) Vital Signs Capillary Refill : (XAVI PENN) Height, Weight, BMI Height: 5'5.00" Weight: 160lbs. 0.0oz. 72.488773eq; 26.6 BMI Method: General Appearance: Moderate Distress, Thin Eyes: Bilateral Eye Normal Inspection, Bilateral Eye PERRL, Bilateral Eye EOMI HEENT: PERRL/EOMI, TMs Normal, Normal ENT Inspection, Pharynx Normal, Moist Mucous Membranes Neck: Full Range of Motion, Normal Inspection, Non Tender, Supple Respiratory: Chest Non Tender, Lungs Clear, Normal Breath Sounds, No Accessory Muscle Use, No Respiratory Distress Cardiovascular: Regular Rate, Rhythm, Normal Peripheral Pulses, Other (1+ pitting edema bilateral lower extremities) Gastrointestinal: Normal Bowel Sounds, Non Tender, Soft Extremity: Normal Capillary Refill, No Calf Tenderness, Pedal Edema (1+ bilateral lower extremities) Neurologic/Psychiatric: Alert, Oriented x3 Skin: normal color, warm/dry (XAVI PENN) Focused Exam Lactate Level 08/14/18 17:36: Lactic Acid Level 2.30*H 08/14/18 19:25: Lactic Acid Level 1.11 (ANGELA TITUS MD) Sepsis Stage: Septic Shock Possible Source: Genitouriary (EVANGELINA JAMIL MD) Lactic Acid Level Laboratory Tests Test 08/14/18 17:36 08/14/18 19:25 Lactic Acid Level 2.30 MMOL/L (0.50-2.00) *H 1.11 MMOL/L (0.50-2.00) (ANGELA TITUS MD) Time of Focused Exam: 22:30 Respiratory: Lungs Clear, Normal Breath Sounds, No Accessory Muscle Use, No Respiratory Distress Cardiovascular: Regular Rate, Rhythm, No Murmur, Normal Peripheral Pulses Capillary Refill: Less Than 3 Seconds Peripheral Pulses: 2+ Radial Pulses (R) Skin: normal color, warm/dry (EVANGELINA JAMIL MD) Progress/Results/Core Measures Suspected Sepsis SIRS Temperature: Pulse: Respiratory Rate: Laboratory Tests 08/14/18 17:36: White Blood Count 18.9H Blood Pressure / Mean: 08/14/18 17:36: Lactic Acid Level 2.30*H Laboratory Tests 08/14/18 17:36: Creatinine 2.35H, INR Comment 1.7H, Platelet Count 361, Total Bilirubin 0.4 (XAVI PENN) Results/Orders Lab Results Laboratory Tests Test 08/14/18 17:36 08/14/18 19:05 08/14/18 19:25 Range/Units White Blood Count 18.9 H 4.3-11.0 10^3/uL Red Blood Count 3.62 L 4.35-5.85 10^6/uL Hemoglobin 10.3 L 11.5-16.0 G/DL Hematocrit 31 L 35-52 % Mean Corpuscular Volume 86 80-99 FL Mean Corpuscular Hemoglobin 28 25-34 PG Mean Corpuscular Hemoglobin Concent 33 32-36 G/DL Red Cell Distribution Width 15.3 H 10.0-14.5 % Platelet Count 361 130-400 10^3/uL Mean Platelet Volume 9.3 7.4-10.4 FL Neutrophils (%) (Auto) 90 H 42-75 % Lymphocytes (%) (Auto) 5 L 12-44 % Monocytes (%) (Auto) 5 0-12 % Eosinophils (%) (Auto) 0 0-10 % Basophils (%) (Auto) 0 0-10 % Neutrophils # (Auto) 17.1 H 1.8-7.8 X 10^3 Lymphocytes # (Auto) 0.9 L 1.0-4.0 X 10^3 Monocytes # (Auto) 0.9 0.0-1.0 X 10^3 Eosinophils # (Auto) 0.0 0.0-0.3 10^3/uL Basophils # (Auto) 0.0 0.0-0.1 10^3/uL Neutrophils % (Manual) 68 % Lymphocytes % (Manual) 3 % Monocytes % (Manual) 4 % Eosinophils % (Manual) 0 % Basophils % (Manual) 0 % Band Neutrophils 25 % Blood Morphology Comment NORMAL Prothrombin Time 20.4 H 12.2-14.7 SEC INR Comment 1.7 H 0.8-1.4 Activated Partial Thromboplast Time 40 H 24-35 SEC Sodium Level 132 L 135-145 MMOL/L Potassium Level 2.5 *L 3.6-5.0 MMOL/L Chloride Level 90 L 98-107 MMOL/L Carbon Dioxide Level 26 21-32 MMOL/L Anion Gap 16 H 5-14 MMOL/L Blood Urea Nitrogen 41 H 7-18 MG/DL Creatinine 2.35 H 0.60-1.30 MG/DL Estimat Glomerular Filtration Rate 21 BUN/Creatinine Ratio 17 Glucose Level 176 H 70-105 MG/DL Lactic Acid Level 2.30 *H 1.11 0.50-2.00 MMOL/L Calcium Level 8.9 8.5-10.1 MG/DL Corrected Calcium 9.3 8.5-10.1 MG/DL Total Bilirubin 0.4 0.1-1.0 MG/DL Aspartate Amino Transf (AST/SGOT) 12 5-34 U/L Alanine Aminotransferase (ALT/SGPT) 9 0-55 U/L Alkaline Phosphatase 78 40-136 U/L Total Protein 7.0 6.4-8.2 GM/DL Albumin 3.5 3.2-4.5 GM/DL Urine Color YELLOW Urine Clarity VERY CLOUDY H Urine pH 5 5-9 Urine Specific [place] 1.015 L 1.016-1.022 Urine Protein 4+ NEGATIVE Urine Glucose (UA) NEGATIVE NEGATIVE Urine Ketones NEGATIVE NEGATIVE Urine Nitrite NEGATIVE NEGATIVE Urine Bilirubin NEGATIVE NEGATIVE Urine Urobilinogen NORMAL NORMAL MG/DL Urine Leukocyte Esterase 2+ H NEGATIVE Urine RBC (Auto) 3+ H NEGATIVE Urine RBC 2-5 H /HPF Urine WBC 50-100 H /HPF Urine Crystals PRESENT H /LPF Urine Amorphous Sediment LARGE SILVIA URATES H /LPF Urine Bacteria LARGE H /HPF Urine Casts NONE /LPF Urine Mucus NEGATIVE /LPF Urine Culture Indicated YES (ANGELA TITUS MD) Medications Given in ED Current Medications Medications Dose Ordered Sig/Bello Route Start Time Stop Time Status Last Admin Dose Admin Acetaminophen 1,000 mg ONCE PRN PO 08/14/18 17:45 08/14/18 18:04 DC 08/14/18 18:04 1,000 MG Cefepime HCl 2000 mg/Sodium Chloride 50 ml @ 100 mls/hr ONCE ONCE IV 08/14/18 18:00 08/14/18 18:29 DC 08/14/18 18:33 100 MLS/HR Sodium Chloride 2,000 ml @ 2,000 mls/hr ONCE ONCE IV 08/14/18 17:45 08/14/18 18:44 DC 08/14/18 18:02 2,000 MLS/HR (ANGELA TITUS MD) Vital Signs/I&O 08/14/18 17:20 Temp 102.5 Pulse 116 Resp 18 B/P (MAP) 92/63 (73) Pulse Ox 92 O2 Delivery Room Air (ANGELA TITUS MD) Vital Signs/I&O Capillary Refill : (XAVI PENN) Progress Note : Time: 17:54 Progress Note Urologist and bridge saw operator are. She has history or play had a creatinine above 9. We'll treat her presumptively as though she has infected nephrostomy tubes with cefepime 2 g IV. (XAVI PENN) Progress Note #1: Time: 22:49 Progress Note Care of this patient was assumed from Dr. Titus at 22:00. Patient was noted to be persistently hypotensive at that point despite 3 liters of IV NS. Levophed is being initiated along with a fourth liter of IV normal saline. Patient has not had much output in her nephrostomy tubes although there has been some leaking around the insertion sites. She will attempt to flush the tubes as she is accustomed to doing twice daily. Patient is considered to be in septic shock at this time due to the persistent hypotension. I have discussed the case again with Dr. Garcia. We believe patient would best be served at [facility] due to her special urology circumstances and lack of music ministries director at [facility] at this time. Patient has received cefepime for initial treatment of urinary tract infection and sepsis. Progress Note #2: Time: 23:05 Progress Note Levophed has been initiated. Potassium is being replaced with a 10 mEq bag via IV route. Dr. Hough has been consulted and is present to place a central line. Mike is on standby for transfer. [facility] was again contacted and patient was accepted for transfer by music ministries director Dr. Christie. Progress Note #3: Time: 01:12 Progress Note Mike will be unable to fly at any point over the next several hours due to precipitation. Patient received potassium replacement and a fourth liter of IV fluid. Levophed has been running at a rate of 5 mcg/min. Blood pressure has been stable with an MEP greater than 65. Nursing staff has informed me patient received cefepime but the Rocephin was actually canceled. I had multiple discussions with Dr. Monique, urologist fire control officer at [facility]. He asked me to obtain a KUB and flush the nephrostomy tubes myself to determine if they are in good position. Tubes seem to be in appropriate position by KUB but there was some question of the functionality of the left nephrostomy tube. The right nephrostomy tube aspirated and flushed easily. However, I initially aspirated the left tube which returned a small amount of bloody fluid. I then flushed with approximately 7 mL of normal saline and could not aspirate after that. Patient reported she felt fluid running from the insertion site during the flush. This fluid was not visibly seen as the skin and dressing was already wet , but patient could feel the fluid running out. Patient is again febrile it is receiving Tylenol. Potassium has been in for a while and a repeat BMP is being obtained. Transfer is now being arranged through [facility] after multiple conversations with Dr. Monique. Transfer is felt necessary because of concern for dysfunction of the left nephrostomy tube. Dr. Hough was able to place a left subclavian line and position was confirmed by x-ray. Progress Note #4: Time: 01:54 Progress Note Patient now transferring via [facility]. Tylenol was given for fever. Blood pressure remained stable on Levophed. Vancomycin is infusing. Urine culture was obtained from the left nephrostomy tube before vancomycin was started. Culture from the right nephrostomy tube was obtained earlier. (EVANGELINA JAMIL MD) Diagnostic Imaging Diagonstic Imaging: Xray Plain Films/CT/US/NM/MRI: chest Comments NAME: EDISSTEFANO Johnson [facility] REC#: [id number] PT STATUS: REG ER : 1950 PHYSICIAN: XAVI PENN MD ADMIT DATE: 08/14/18/ER Signed Date of Exam: 08/14/18 CHEST 1 VIEW, AP/PA ONLY INDICATION: Pain and fever. FINDINGS: Lungs are clear. The heart size and vascularity within normal limits. There is no effusion or pneumothorax. IMPRESSION: No acute appearing abnormality. Dictated by: Dictated on workstation # [id number] Dict: 08/14/181827 Trans: 08/14/181910 Interpreted by: KIA GLASER Electronically signed by: KIA GLASER 08/14/181910 Diagonstic Imaging: Xray Plain Films/CT/US/NM/MRI: chest Comments Chest x-ray reveals a subclavian line with tip in the SVC. Line appears in good position. No pneumothorax. Diagonstic Imaging: Xray Plain Films/CT/US/NM/MRI: abdomen Comments KUB shows nephrostomy tubes coiled in approximately the position of the renal pelvis bilaterally. (EVANGELINA JAMIL MD) Transfer of Care Transfer of Care Time: 18:00 Care transferred to: [facility] (XAVI PENN) Critical Care Note Critical Care Start Time: 22:00 Stop Time: 01:55 (EVANGELINA JAMIL MD) Departure Communication (Admissions) Receive the patient at shift change at 1800. She is a 67-year-old white female who has had difficulties for months now. She was discovered to have renal failure and the physiology appeared to be bilateral ureteral obstructions. Her creatinine apparently peaked at about 9. Ultimately bilateral percutaneous nephrostomies were placed. The first was placed in May and the the latter about 6 weeks ago. Apparently attempts at placing ureteral stents were unsuccessful. There is stenosis of unknown etiology. She has felt increasingly ill over the past several days and today had fever tachycardia hypotension and elevated white count consistent with severe sepsis. She also has noted some blood from the left nephrostomy. It would be her choice to transfer back to [facility] as this is where she has done the bulk of her course. She was to be up there tomorrow for a consultation relative to what might be reasonable in terms of a definitive treatment of the ureteral obstructions. Physical exam: she appears weary and acutely ill. Lungs are clear to auscultation. CV is regular. She is wrapped in blankets as she feels chilled. Abdomen is soft. The nephrostomies are examined and there is modest blood in the barrier on the left. There is 1-2+ pretibial edema bilaterally. 1844: Discussed with the transfer service at [facility]. We are awaiting call back for acceptance 2030: Despite fluid replacement at 30 mL/kg patient has become hypotensive again. Accordingly it would appear in best discretion to keep the patient overnight at least with pressors and continued fluid and antibiotic support. (ANGELA TITUS MD) Impression Primary Impression: Septic shock Additional Impressions: Urinary tract infection Qualified Codes: N39.0 - Urinary tract infection, site not specified; R31.9 - Hematuria, unspecified Hypokalemia Ureteral obstruction Renal failure Qualified Codes: N19 - Unspecified kidney failure Disposition: 02 XFER [facility] Condition: Critical Admissions Decision to Admit Reason: Admit from ER (General) Decision to Admit/Date: Aug 14, 2018 Time/Decision to Admit Time: 20:54 (ANGELA TITUS MD) Transfer Method of Transfer: EMS (ANGELA TITUS MD) Time Spoke to Accepting Phy: 22:50 Transfer Progress Notes Patient was accepted by Dr. Christie via the triage nurse at [facility]. Transfer Time: 01:53 Transfer Facility: [facility] Method of Transfer: Air (EVANGELINA JAMIL MD) Departure-Patient Inst. Referrals: JAVIER GARCIA MD (PCP/Family) Primary Care Physician XAVI PENN Aug 14, 2018 17:53 ANGELA TITUS MD Aug 14, 2018 18:30 EVANGELINA JAMIL MD Aug 14, 2018 22:54
[2018-08-14 17:54] LABS: BASOPHILS % (AUTO) 0 % (0-10); EOSINOPHILS % (AUTO) 0 % (0-10); HEMATOCRIT 31 % (35-52); HEMOGLOBIN 10.3 G/DL (11.5-16.0); LYMPHOCYTES # (AUTO) 0.9 X 10^3 (1.0-4.0); LYMPHOCYTES % (AUTO) 5 % (12-44); MEAN CORPUSCULAR HGB CONC 33 G/DL (32-36); MEAN CORPUSCULAR VOLUME 86 FL (80-99); MEAN PLATELET VOLUME 9.3 FL (7.4-10.4); MONOCYTES # (AUTO) 0.9 X 10^3 (0.0-1.0); MONOCYTES % (AUTO) 5 % (0-12); NEUTROPHILS # (AUTO) 17.1 X 10^3 (1.8-7.8); NEUTROPHILS % (AUTO) 90 % (42-75); PLATELET COUNT 361 10^3/uL (130-400); RED BLOOD COUNT 3.62 10^6/uL (4.35-5.85); RED CELL DISTRIBUTION WIDTH 15.3 % (10.0-14.5); WHITE BLOOD COUNT 18.9 10^3/uL (4.3-11.0)
[2018-08-14 17:56] LABS: MEAN CORPUSCULAR HEMOGLOBIN 28 PG (25-34)
[2018-08-14 18:00] LABS: INR 1.7 (0.8-1.4); PROTHROMBIN TIME PATIENT 20.4 SEC (12.2-14.7)
[2018-08-14] MEDS ORDERED: CEFEPIME INJECTION 2,000 MG in NS (IVPB) 50 ML IV ONE (18:00)
[2018-08-14 18:05] LABS: ALBUMIN 3.5 GM/DL (3.2-4.5); BILIRUBIN,TOTAL 0.4 MG/DL (0.1-1.0); CALCIUM 8.9 MG/DL (8.5-10.1); CREATININE SERUM 2.35 MG/DL (0.60-1.30)
[2018-08-14 18:08] LABS: POTASSIUM 2.5 MMOL/L (3.6-5.0)
[2018-08-14 18:28] LABS: BAND NEUTROPHILS 25 %; BASOPHILS % (MANUAL) 0 %; EOSINOPHILS % (MANUAL) 0 %; LYMPHOCYTES % (MANUAL) 3 %; MONOCYTES % (MANUAL) 4 %; NEUTROPHILS % (MANUAL) 68 %; RBC MORPH NORMAL
--- NOTE | 2018-08-14 18:36 | Diagnostic Imaging Report ---
INDICATION: Pain and fever. FINDINGS: Lungs are clear. The heart size and vascularity within normal limits. There is no effusion or pneumothorax. IMPRESSION: No acute appearing abnormality. Dictated by: Dictated on workstation # [id number]
[2018-08-14 19:12] LABS: BILIRUBIN,URINE NEGATIVE (NEGATIVE); CLARITY,URINE VERY CLOUDY; COLOR,URINE YELLOW; GLUCOSE, URINE (UA) NEGATIVE (NEGATIVE); KETONES,URINE NEGATIVE (NEGATIVE); LEUKOCYTE ESTERASE ,URINE 2+ (NEGATIVE); NITRITE,URINE NEGATIVE (NEGATIVE); PH,URINE 5 (5-9); PROTEIN,URINE 4+ (NEGATIVE); UROBILINOGEN,URINE NORMAL (NORMAL)
[2018-08-14 19:25] LABS: AMORPHOUS SEDIMENT,UR LARGE AMOR URATES /LPF; WBC,URINE 50-100 /HPF
[2018-08-14 19:26] LABS: BACTERIA,URINE LARGE /HPF
[2018-08-14] MEDS ORDERED: NS IV 1000 ML 1,000 ML IV SCH (19:50)
[2018-08-14] MEDS ORDERED: NS IV 1000 ML 1,000 ML IV ONE (22:28)
[2018-08-14] MEDS ORDERED: NOREPINEPHRINE 4 MG in NS (IVPB) 250 ML IV SCH (22:30)
[2018-08-14] MEDS ORDERED: POTASSIUM CL 10MEQ/50ML IVPB 50 ML IV ONE (22:45)
[2018-08-15] MEDS ORDERED: ACETAMINOPHEN 500 MG TAB (TYLENOL) PO ONE (00:45)
[2018-08-15] MEDS ORDERED: VANCOMYCIN INJECTION 1,000 MG in NS (IVPB) 250 ML IV ONE (01:00)
[2018-08-15 01:38] LABS: CALCIUM 7.6 MG/DL (8.5-10.1); CREATININE SERUM 1.98 MG/DL (0.60-1.30); POTASSIUM 3.1 MMOL/L (3.6-5.0)
[2018-08-15 01:59] VITALS: BP 102/60
--- NOTE | 2018-08-15 02:32 | CONSULTATION REPORT ---
DATE OF SERVICE: 08/14/2018 ATTENDING PRIMARY CARE PHYSICIAN: Jeny Garcia MD. HISTORY OF PRESENT ILLNESS: The patient is a 67-year-old female, who presented to [facility] Emergency Department with a high fever. She has a history of bilateral ureteral strictures causing urinary obstruction of unknown etiology at this time. She states that she has not had any urinary problems before in the past. She also does not report any previous intra-abdominal or retroperitoneal inflammatory changes as well as no known history of retroperitoneal fibrosis. She developed renal failure and was found to have bilateral ureteral obstructions. She then underwent bilateral stent placement and this temporarily relieved her obstruction; however, the stents became obstructed and she then underwent placement of bilateral urostomy tubes. She has been seeing Dr. Moseley, urologist at [facility] for further evaluation as well as possible reimplantation of the ureters into the bladder. She was scheduled to have an appointment with him tomorrow for ureterogram. She developed fevers. She also reports that the drainage out of the left-sided nephrostomy tube has been bloody recently. She also feels very fatigued. In the Emergency Department, she initially had a temperature of 103.3 with a heart rate of 122 and a blood pressure of 95/46. The plan is for her to be transferred to [facility] and back to the hospitalist there as well as consultation with Dr. Moseley for further therapy. She will need a central venous catheter for IV fluids as well as antibiotics and possible vasopressors if needed. PAST MEDICAL HISTORY: Bilateral ureteral stricture and renal failure. Hypercholesterolemia. PAST SURGICAL HISTORY: Hysterectomy, cholecystectomy. ALLERGIES: CODEINE. MEDICATIONS: Eliquis 5 mg daily, levothyroxine 50 mcg daily, Protonix 40 mg daily, Colace 100 mg daily. SOCIAL HISTORY: Positive smoke, negative alcohol. FAMILY HISTORY: Noncontributory. REVIEW OF SYSTEMS: This is a slightly thin-appearing female, slightly fatigued in appearance, however, awake and alert, and answers all questions appropriately. She is not experiencing any shortness of breath or difficulty breathing. No cough or sputum production. No chest pain, palpitations, diaphoresis. No nausea, vomiting, no diarrhea, constipation; however, she has had lack of appetite in recent weeks. Recent fever, chills and some weight loss since all of her ureteral symptoms had started. All other review of systems negative. PHYSICAL EXAMINATION: VITAL SIGNS: Temperature 102.5, blood pressure 92/63, pulse 116, respirations 18, pulse ox 92% on room air. CHEST: Clear. Good breath sounds bilaterally. HEART: Regular. No murmurs. EXTREMITIES: No lower extremity edema. Negative Homans sign. HEENT: No scleral icterus. NECK: No cervical lymphadenopathy. ABDOMEN: Soft, nontender, nondistended. There is a bilateral mild flank discomfort upon palpation. SKIN: Warm and dry. LABORATORY DATA: WBC18.9, hemoglobin 10.3, hematocrit 31. Potassium 2.5, BUN 41, creatinine 2.35. ASSESSMENT AND PLAN: A 67-year-old female with sepsis secondary to catheter-based urinary tract infection, most likely of the left nephrostomy tube. At this time, she appears stable; however, she does have relatively low blood pressure and has been tachycardic at times with a high fever. She does have the potential need for pressors and is going to be transferred to [facility] for further evaluation and therapy. She will require a central venous catheter for continued fluid challenges as well as IV antibiotics and possible vasopressors. Job ID: [id number] DocumentID: [id number] Dictated Date: 08/15/2018 00:02:16 Microbiological Analyst Date: 08/15/2018 02:32:27 Dictated By: ASHLEY BROWN MD
--- NOTE | 2018-08-15 02:51 | OPERATIVE REPORT ---
DATE OF SERVICE: 08/15/2018 ATTENDING PRIMARY CARE PHYSICIAN: Dr. Garcia. PREOPERATIVE DIAGNOSES: History of bilateral ureteral strictures status post bilateral nephrostomy tube placement with catheter based urinary tract infection and sepsis. POSTOPERATIVE DIAGNOSES: History of bilateral ureteral strictures status post bilateral nephrostomy tube placement with catheter based urinary tract infection and sepsis. PROCEDURE: Placement of left subclavian central venous catheter. SURGEON: Ashley Brown MD ANESTHESIA: Local. ESTIMATED BLOOD LOSS: Minimal. FINDINGS: Catheter tip at superior vena cava -- right atrial junction. DISPOSITION: The patient tolerated the procedure well. The patient is a 67-year-old female with history of bilateral ureteral strictures and obstruction resulting in renal failure. She has undergone ureteral stent placement; however, this was only transient, ineffectiveness and then required bilateral nephrostomy tube placement. She presented with fevers, chills, and tachycardia consistent with catheter based urinary tract infection. She has been seen by urology surgical specialty at [facility] and will require further evaluation and therapy there. She meets sepsis criteria and will require central venous catheter for fluid challenges as well as IV antibiotics and potentially IV vasopressors. The left chest and neck were prepped and draped in standard surgical fashion. The left subclavian region was then anesthetized using 1% lidocaine. The left subclavian vein was then cannulated with drawing of venous blood. A guidewire was then inserted without any resistance. The cannulating needle removed and a skin incision made using 11-blade. A tract was then created using a venous dilator and triple lumen central venous catheter was placed over the guidewire using the Seldinger technique. The guidewire was removed and all three ports maura venous blood and saline pushed in without any resistance. The catheter was then sutured to the skin using interrupted 3-0 silk sutures. Catheter was then cleaned and covered with Op-Site. The patient tolerated the procedure well. We will get a post-procedure chest x-ray and once placement is confirmed, it may be used at any time and she may be transferred at any time as well. Job ID: [id number] DocumentID: [id number] Dictated Date: 08/15/2018 00:06:02 Writer Technical Publications Date: 08/15/2018 02:50:23 Dictated By: ASHLEY BROWN MD [facility]
--- NOTE | 2018-08-15 06:15 | Diagnostic Imaging Report ---
Clinical indication: Check central line placement. Exam: Portable chest x-ray upright view. Comparisons: Chest x-ray dated 08/14/2018. Findings: There is interval placement of a central line overlying left chest region with tip in the distal superior vena cava. Lungs/pleura: Lungs are clear. There is no pneumothorax. There is no pleural effusion. Mediastinum: Unremarkable. Pulmonary vasculature: Unremarkable. Heart: Unremarkable. Bones/extrathoracic soft tissue: Unremarkable. Impression: 1: Interval placement of left-sided central line with tip in the distal superior vena cava. There is no pneumothorax. 2: There is no radiographic evidence of acute cardiopulmonary process. Dictated by: Dictated on workstation # [id number]
--- NOTE | 2018-08-15 07:02 | Diagnostic Imaging Report ---
Clinical indication: Patient with fever and bilateral nephrostomy tubes. Exam: X-ray abdomen, supine view. Comparison: X-ray of the abdomen supine view dated 05/31/2018. Findings and impression: 1: There is interval placement of bilateral nephrostomy tubes. Again seen small calcifications in both sides of the low pelvis region which may represent phleboliths. If there is concern for distal ureteral stone, CT scan would better evaluate. 2: There is a nonobstructed bowel gas pattern. There is no acute abdominal free air. 3: There are again seen surgical clips overlying the right upper quadrant which may be related to cholecystectomy. 4: There are hypertrophic spurs involving the spine. Dictated by: Dictated on workstation # [id number]
== END 2018-08-15 02:00 | disposition short-term general hospital (02) ==
LOC: EDUNIT# 17:07 → ER 17:08
DX: A41.9 Sepsis, unspecified organism (principal); R65.21 Severe sepsis with septic shock; N13.6 Pyonephrosis; E87.6 Hypokalemia; N19 Unspecified kidney failure; E03.9 Hypothyroidism, unspecified; F32.9 Major depressive disorder, single episode, unspecified; Z93.6 Other artificial openings of urinary tract status; Z88.5 Allergy status to narcotic agent; Z79.01 Long term (current) use of anticoagulants
CPT/HCPCS: 36415; 71045; 74018; 80048; 80053; 81000; 83605; 85007; 85027; 85610; 85730; 87040; 87077; 87088; 87186

== ENCOUNTER 2018-08-30 13:21 | Inpatient (IN) | payer MEDICARE, OTHER ==
[~2018-08-30] VITALS: Ht 165.1 cm; Wt 87.6 kg
[2018-08-30] VITALS (7 sets, daily range): BP systolic 96–107; BP diastolic 63–69
--- OUTSIDE RECORDS SUMMARY | 2018-08-30 13:28 | XMS REPORT | Clinical Summary ---
Author Author [facility] Organization [facility] Address Unknown Phone Unavailable Care Team Providers Care Instrument Technician Helper Name Role Phone Jeny Garcia MD PCP Source Comments Some departments are not documenting in the electronic medical record. If you do not see the information that you expected, contact Release of Information in the Health Information Management department at [phone] for further assistance in locating additional records.[facility] Allergies Active Allergy Reactions Severity Noted [...] tablet daily 30 minutes before 18 breakfast. calcium carbonate (TUMS) Chew 1 tablet by [...] tablet 3 Active tablet every morning. 18 ondansetron (ZOFRAN ODT) Dissolve 4 mg by mouth Active 4 mg rapid dissolve every 8 hours as needed tablet for Nausea or Vomiting. Place on tongue to disolve. pantoprazole DR Take one tablet by mouth 08/19/20 Active (PROTONIX) 40 mg tablet daily. 18 levoFLOXacin (LEVAQUIN) Take one tablet by mouth 9 tablet 0 08/24/20 Active 750 mg tabletIndications: daily. 18 Oral Option for Gram-Negative Bacteremia pantoprazole DR Take 40 mg by mouth twice 03/22/20 08/19/20 Discontin (PROTONIX) 40 mg daily. 18 18 ued tabletIndications: gastroesophageal reflux disease torsemide(+) (DEMADEX) 20 Take 20 mg by mouth daily 08/19/20 Discontin mg tabletIndications: with breakfast. 18 ued Edema levoFLOXacin (LEVAQUIN) Take one tablet by mouth 10 tablet 0 08/20/20 08/24/20 Discontin 750 mg tabletIndications: every 24 hours for 10 18 18 ued Oral Option for days. Gram-Negative Bacteremia Active Problems Problem Noted Date Aspiration into airway 08/23/2018 Sepsis ([facility]) 08/15/2018 Bilateral ureteral obstruction 08/02/2018 Major depressive disorder with single episode, in remission ([facility]) 07/07/2018 Gastroesophageal reflux disease without esophagitis 07/07/2018 Hypothyroidism due to acquired atrophy of thyroid 07/07/2018 Vitamin D deficiency 07/07/2018 MEE (acute kidney injury) ([facility]) 07/07/2018 Pyuria 07/07/2018 Volume overload 07/07/2018 Acute deep vein thrombosis (DVT) of distal end of right lower extremity ([facility]) Debility 07/07/2018 Obesity (BMI 30-39.9) 07/07/2018 Hydronephrosis [...] Obstructive uropathy 07/01/2018 Bilateral leg edema 07/01/2018 Resolved Problems Problem Noted Date Resolved Date Septic shock (HCC) 08/15/2018 08/19/2018 Pneumothorax, iatrogenic 08/15/2018 08/19/2018 Anxiety 07/07/2018 08/19/2018 Encounters Date Type Specialty Care Team Description 08/23/2018 Hospital Inocente Krause MD Aspiration into airway - Encounter 08/24/2018 08/23/2018 Pharmacy Visit 08/23/2018 Procedure Pass 08/23/2018 Surgery Inocente Krause MD CYSTOURETHROSCOPY WITH URETERAL CATHETERIZATION, BILATERAL RETROGRADE AND ANTEGRADE PYELOGRAMS, TRANSURETHRAL RESECTION OF BLADDER TUMOR 08/19/2018 Anesthesia Brigido Lu, BOOM Event 08/15/2018 PAC Office Anesthesiology Inocente Krause MD Canceled Visit (Patient-Hospitalized) 08/15/2018 [facility] Intensive Care Mary Ann Christie MD Septic shock (HCC ) - Encounter Michael Rose MD 08/19/2018 Ramón Mcclain MD 08/15/2018 Hospital Radiology Encounter 08/14/2018 Hospital Radiology Encounter 08/14/2018 Hospital Radiology Encounter 07/30/2018 Office Visit Oncology Inocente Krause MD Bilateral ureteral obstruction 07/30/2018 Prep for Case Oncology Inocente Krause MD Bilateral ureteral obstruction (Primary Dx) 07/01/2018 [facility] Darrick Lazo MD Obstructive uropathy - Encounter Magan Garcia MD 07/08/2018 Estela Ghosh DO Ho, Trang, MD 07/01/2018 Office Visit Urology Inocente Krause MD Hydronephrosis, unspecified hydronephrosis type 07/01/2018 Procedure [...] Vital Sign Reading Time Taken Blood Pressure 114/57 08/24/2018 6:11 AM CDT Pulse 93 08/24/2018 6:11 AM CDT Temperature 36.7 C (98 F) 08/24/2018 6:11 AM CDT Respiratory Rate 18 07/30/2018 12:54 PM CDT Oxygen Saturation 96% 08/24/2018 6:11 AM CDT Inhaled Oxygen - - Concentration Weight 75 kg (165 lb 5.5 oz) 08/23/2018 12:39 PM CDT Height 165.1 cm (5' 5") 08/23/2018 12:39 PM CDT Body Mass Index 27.51 08/23/2018 12:39 PM CDT Plan of Treatment Health Maintenance Due Date Last Done Comments HEPATITIS C SCREENING 1950 PHYSICAL (COMPREHENSIVE) 1959 EXAM PERTUSSIS VACCINE 1963 HIV SCREENING 1967 TETANUS VACCINE 1969 BREAST CANCER SCREENING 1992 COLORECTAL CANCER 2002 SCREENING SHINGLES RECOMBINANT 2002 VACCINE (1 of 2) OSTEOPOROSIS SCREENING 2017 PNEUMONIA (PCV13/PPSV23) 2017 VACCINES (1 of 2 - PCV13) INFLUENZA VACCINE 06/12/2018 Procedures Procedure Name Priority Date/Time Associated Diagnosis Comments CBC Routine 08/24/2018 Results for this 3:56 AM CDT procedure are in the results section. BASIC METABOLIC PANEL Routine 08/24/2018 Results for this 3:56 AM CDT procedure are in the results section. SURGICAL PATHOLOGY 08/23/2018 Results for this 10:44 AM CDT procedure are in the results section. FLUORO MOBILE IN OR Routine 08/23/2018 Results for this 10:15 AM CDT procedure are in the results section. CHEST SINGLE VIEW STAT 08/23/2018 Results for this 10:14 AM CDT procedure are in the results section. CYSTOURETHROSCOPY WITH 08/23/2018 Bilateral ureteral URETERAL CATHETERIZATION 9:05 AM CDT obstruction WITH/ WITHOUT IRRIGATION/ INSTILLATION/ URETEROPYELOGRAPHY TELEMETRY STRIPS-SCAN 08/20/2018 Results for this 12:27 PM CDT procedure are in the results section. CHEST SINGLE VIEW TYLER 08/19/2018 Results for this 9:11 AM CDT procedure are in the results section. PHOSPHORUS STAT 08/19/2018 Results for this 3:10 AM CDT procedure are in the results section. MAGNESIUM Routine 08/19/2018 Results for this 3:10 AM CDT procedure are in the results section. CBC AND DIFF Routine 08/19/2018 Results for this 3:10 AM CDT procedure are in the results section. BASIC METABOLIC PANEL STAT 08/19/2018 Results for this 3:10 AM CDT procedure are in the results section. ECG-SCAN 08/18/2018 Results for this 8:05 PM CDT procedure are in the results section. CHEST SINGLE VIEW Routine 08/18/2018 Results for this 4:50 AM CDT procedure are in the results section. PHOSPHORUS STAT 08/18/2018 Results for this 2:25 AM CDT procedure are in the results section. MAGNESIUM Routine 08/18/2018 Results for this 2:25 AM CDT procedure are in the results section. CBC AND DIFF Routine 08/18/2018 Results for this 2:25 AM CDT procedure are in the results section. BASIC METABOLIC PANEL STAT 08/18/2018 Results for this 2:25 AM CDT procedure are in the results section. PHOSPHORUS STAT 08/17/2018 Results for this 3:50 AM CDT procedure are in the results section. MAGNESIUM Routine 08/17/2018 Results for this 3:50 AM CDT procedure are in the results section. COMPREHENSIVE METABOLIC STAT 08/17/2018 Results for this PANEL 3:50 AM CDT procedure are in the results section. CBC AND DIFF Routine 08/17/2018 Results for this 3:50 AM CDT procedure are in the results section. CHEST SINGLE VIEW Routine 08/17/2018 Results for this 3:46 AM CDT procedure are in the results section. CHEST X-RAY STAT 08/16/2018 Results for this INSPIRATION/EXPIRATION 6:27 PM CDT procedure are in the results section. CHEST IMMEDIATE POST STAT 08/16/2018 Results for this PROCEDURE INSP/EXP 5:07 PM CDT procedure are in the results section. IR ASPIRATION/DRAIN TYLER 08/16/2018 Results for this 4:14 PM CDT procedure are in the results section. BASIC METABOLIC PANEL Routine 08/16/2018 Results for this 2:05 PM CDT procedure are in the results section. CHEST SINGLE VIEW Routine 08/16/2018 Results for this 4:38 AM CDT procedure are in the results section. MAGNESIUM Routine 08/16/2018 Results for this 4:09 AM CDT procedure are in the results section. COMPREHENSIVE METABOLIC STAT 08/16/2018 Results for this PANEL 4:09 AM CDT procedure are in the results section. CBC AND DIFF Routine 08/16/2018 Results for this 4:09 AM CDT procedure are in the results section. PHOSPHORUS STAT 08/16/2018 Results for this 4:09 AM CDT procedure are in the results section. BASIC METABOLIC PANEL Routine 08/15/2018 Results for this 4:40 PM CDT procedure are in the results section. MAGNESIUM STAT 08/15/2018 Results for this 4:40 PM CDT procedure are in the results section. C DIFFICILE BY PCR Routine 08/15/2018 Results for this 2:30 PM CDT procedure are in the results section. CHEST SINGLE VIEW Routine 08/15/2018 Results for this 2:07 PM CDT procedure are in the results section. NOTES 08/15/2018 Results for this 12:25 PM CDT procedure are in the results section. URINALYSIS, MICROSCOPIC Routine 08/15/2018 Results for this 12:25 PM CDT procedure are in the results section. CULTURE-URINE Routine 08/15/2018 Results for this W/SENSITIVITY 12:25 PM CDT procedure are in the results section. IR ASPIRATION/DRAIN STAT 08/15/2018 Results for this 12:15 PM CDT procedure are in the results section. NOTES 08/15/2018 Results for this 12:07 PM CDT procedure are in the results section. URINALYSIS, MICROSCOPIC Routine 08/15/2018 Results for this 12:07 PM CDT procedure are in the results section. CULTURE-URINE Specimen 08/15/2018 Results for this W/SENSITIVITY in Lab 12:07 PM CDT procedure are in the results section. MAGNESIUM Routine 08/15/2018 Results for this 10:20 AM CDT procedure are in the results section. BASIC METABOLIC PANEL Routine 08/15/2018 Results for this 10:20 AM CDT procedure are in the results section. TROPONIN-I STAT 08/15/2018 Results for this 10:20 AM CDT procedure are in the results section. UREA NITROGEN-URINE Routine 08/15/2018 Results for this RANDOM 7:50 AM CDT procedure are in the results section. CREATININE-URINE RANDOM Routine 08/15/2018 Results for this 7:50 AM CDT procedure are in the results section. URINALYSIS, MICROSCOPIC Routine 08/15/2018 Results for this 7:50 AM CDT procedure are in the results section. URINALYSIS DIPSTICK Routine 08/15/2018 Results for this 7:50 AM CDT procedure are in the results section. CULTURE-URINE Routine 08/15/2018 Results for this W/SENSITIVITY 7:50 AM CDT procedure are in the results section. ABDOMEN AP ONLY Routine 08/15/2018 Results for this 6:55 AM CDT procedure are in the results section. CHEST SINGLE VIEW Routine 08/15/2018 Results for this 6:54 AM CDT procedure are in the results section. TROPONIN-I STAT 08/15/2018 Results for this 6:50 AM CDT procedure are in the results section. CULTURE-BLOOD Routine 08/15/2018 Results for this W/SENSITIVITY 4:59 AM CDT procedure are in the results section. PHOSPHORUS Routine 08/15/2018 Results for this 4:55 AM CDT procedure are in the results section. TSH WITH FREE T4 REFLEX Routine 08/15/2018 Results for this 4:55 AM CDT procedure are in the results section. TROPONIN-I STAT 08/15/2018 Results for this 4:55 AM CDT procedure are in the results section. BNP (B-TYPE NATRIURETIC Routine 08/15/2018 Results for this PEPTI) 4:55 AM CDT procedure are in the results section. MAGNESIUM Routine 08/15/2018 Results for this 4:55 AM CDT procedure are in the results section. LACTIC ACID (BG - RAPID Routine 08/15/2018 Results for this LACTATE) 4:55 AM CDT procedure are in the results section. COMPREHENSIVE METABOLIC Routine 08/15/2018 Results for this PANEL 4:55 AM CDT procedure are in the results section. PTT (APTT) Routine 08/15/2018 Results for this 4:55 AM CDT procedure are in the results section. PROTIME INR (PT) Routine 08/15/2018 Results for this 4:55 AM CDT procedure are in the results section. CBC AND DIFF Routine 08/15/2018 Results for this 4:55 AM CDT procedure are in the results section. CULTURE-BLOOD Routine 08/15/2018 Results for this W/SENSITIVITY 4:50 AM CDT procedure are in the results section. GENERAL RAD ABDOMEN Routine 08/15/2018 Diagnosis unknown Results for this EXTERNAL IMAGING 12:00 AM CDT procedure are in the results section. GENERAL RAD CHEST Routine 08/14/2018 Diagnosis unknown Results for this EXTERNAL IMAGING 12:15 AM CDT procedure are in the results section. GENERAL RAD CHEST Routine 08/14/2018 Diagnosis unknown Results for this EXTERNAL IMAGING [...] from Last 3 Months Results * CBC (08/24/2018 3:56 AM) White Blood Cells 15.2 (H) 4.5 - 11.0 K/UL [facility] RBC 3.26 (L) 4.0 - 5.0 M/UL [facility] Hemoglobin 9.1 (L) 12.0 - 15.0 GM/DL [facility] Hematocrit 28.4 (L) 36 - 45 % [facility] MCV 87.0 80 - 100 FL [facility] MCH 28.0 26 - 34 PG [facility] MCHC 32.2 32.0 - 36.0 G/DL [facility] RDW 16.4 (H) 11 - 15 % [facility] Platelet Count 444 (H) 150 - 400 K/UL [facility] MPV 6.8 (L) 7 - 11 FL [facility] Performing Organization Address City/[facility] Phone Number [facility] [address] [place] [address] * BASIC METABOLIC PANEL (08/24/2018 3:56 AM) Only the most recent of 6 results within the time period is included. Sodium 135 (L) 137 - 147 MMOL/L [facility] Potassium 3.3 (L) 3.5 - 5.1 MMOL/L [facility] Chloride 100 98 - 110 MMOL/L [facility] CO2 23 21 - 30 MMOL/L [facility] Anion Gap 12 3 - 12 [facility] Glucose 129 (H) 70 - 100 MG/DL [facility] Blood Urea Nitrogen 14 7 - 25 MG/DL [facility] Creatinine 1.33 (H) 0.4 - 1.00 MG/DL [facility] Calcium 8.5 8.5 - 10.6 MG/DL [facility] eGFR Non 40 (L) >60 mL/min [facility] Comment: The eGFR is not validated for use in drug dosing adjustments.Continue to use estimated creatinine clearance per dosing reference text.Please contact the Clinical Pharmacist for questions. eGFR 48 (L) >60 mL/min [facility] Comment: The eGFR is not validated for use in drug dosing adjustments.Continue to use estimated creatinine clearance per dosing reference text.Please contact the Clinical Pharmacist for questions. Performing Organization Address City/[facility] Phone Number [facility] [address] [place] [address] * SURGICAL PATHOLOGY (08/23/2018 10:44 AM) PATHOLOGY REPORT [facility] [employer] [email or web address] Department of Pathology and Laboratory Medicine [address] [place] [address] Surgical Pathology Office:[phone] :[phone] SURGICAL PATHOLOGY REPORT NAME: ARACELIS ESPINAL SURG PATH #: [id number] MR #: [id number] SPECIMEN CLASS: SR BILLING #: [id number] ALT ID #:LOCATION: [facility] DATE OF PROCEDURE: 08/23/2018 AGE:67 SEX: F DATE RECEIVED: 08/23/2018 : 1950TIME RECEIVED:10:44 PHYSICIAN: INOCENTE KRAUSE MD DATE OF REPORT: 08/27/2018 COPY TO:DATE OF PRINTIN08/27/2018 Procedures/Addenda Immunohistochemical Date Ordered: 08/27/2018 Status:Signed Out Date Complete: 08/27/2018 By: Preet Holley MD Date Reported: 08/27/2018 Interpretation The diagnosis remains the same. 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 Preet Holley MD ############################## ############################## ############ Final Diagnosis: A. Bladder, "bladder mass", biopsy: Plasmacytoid urinary bladder carcinoma. SEE COMMENT Comment: Immunohistochemical stains supporting the diagnosis: Positive for pancytokeratin and cytokeratin CAM 5.2. Focally positive for CD138. [place] E-cadherin on tumor cells. These findings support the above diagnosis. Pursuant to the [employer] Program at the [facility] Pathology Department, selected slides from this case have been concurrently reviewed by the following pathologist: ,who agrees with the final diagnosis. Attestation: By this signature, I attest that I have personally formulated the final interpretation expressed in this report and that the above diagnosis is based upon my examination of the slides and/or other material indicated in this report. +++ +++ ksw/08/23/2018 ############################## ############################## ############ Material Received: A: bladder mass for routine History: 67-year-old female with a history of bilateral ureteral obstruction. Gross Description: A. Fixative: Formalin Labeled: "Bladder mass" Weight: 1 gram Dimensions: 2.0 x 1.3 x 0.4 cm Cassettes A1-A2- Entire specimen.(wlm) wl/08/23/2018 If immunohistochemical stains and/or in situ hybridization are cited in this report, the performance characteristics were determined by the Department of Pathology and Laboratory Medicine of the [facility] ([employer]) in compliance with CLIA'88 regulations.Some of these tests rely on the use of "analyte specific reagents" and are subject to specific labeling requirements by the FDA. Known positive and negative control tissues demonstrate appropriate staining.Results should be interpreted with caution given the likelihood of false negativity on decalcified specimens.This testing was developed by the Department of Pathology and Laboratory Medicine of the [facility].It has not been cleared or approved by the FDA.The FDA has determined that such clearance or approval is not necessary. Performing Organization Address City/State/Zipcode Phone Number [facility] * FLUORO MOBILE IN OR (08/23/2018 10:15 AM) Narrative Performed At This order has been auto finalized and does not contain a result. [facility] Performing Organization Address City/State/Zipcode Phone Number [facility] * CHEST SINGLE VIEW (08/23/2018 10:14 AM) Only the most recent of 8 results within the time period is included. Impressions Performed At Interval placement of endotracheal tube and gastric tube as noted above. [facility] No acute cardiopulmonary process. Finalized by Fuad Canas M.D. on 08/23/2018 10:45 AM. Dictated by Fuad Canas M.D. on 08/23/2018 10:43 AM. Narrative Performed At Portable AP chest [facility] Clinical history: Aspiration. Comparison: 08/19/2018. Findings: Portable AP chest demonstrates interval placement of endotracheal tube, with tip below the thoracic inlet and is approximately 2 cm above the souleymane. Gastric tube is noted in place, with tip overlying the region of the proximal body of the stomach. The cardiac silhouette and pulmonary vasculature appear to be within normal limits. There is improved aeration both lung bases when compared to prior exam. No new acute pulmonary infiltrates or consolidation is noted. No pneumothorax or pleural effusion is identified. Procedure Note Interface, Radiant Results - 08/23/2018 10:48 AM CDT Portable AP chest Clinical history: Aspiration. Comparison: 08/19/2018. Findings: Portable AP chest demonstrates interval placement of endotracheal tube, with tip below the thoracic inlet and is approximately 2 cm above the souleymane. Gastric tube is noted in place, with tip overlying the region of the proximal body of the stomach. The cardiac silhouette and pulmonary vasculature appear to be within normal limits. There is improved aeration both lung bases when compared to prior exam. No new acute pulmonary infiltrates or consolidation is noted. No pneumothorax or pleural effusion is identified. IMPRESSION Interval placement of endotracheal tube and gastric tube as noted above. No acute cardiopulmonary process. Finalized by Fuad Canas M.D. on 08/23/2018 10:45 AM. Dictated by Fuad Canas M.D. on 08/23/2018 10:43 AM. Performing Organization Address City/State/Zipcode Phone Number [facility] * TELEMETRY STRIPS-SCAN (08/20/2018 12:27 PM) Narrative Performed At Ordered by an unspecified provider. * CBC AND DIFF (08/19/2018 3:10 AM) Only the most recent of 13 results within the time period is included. White Blood Cells 8.0 4.5 - 11.0 K/UL [facility] RBC 3.28 (L) 4.0 - 5.0 M/UL [facility] Hemoglobin 9.0 (L) 12.0 - 15.0 GM/DL [facility] Hematocrit 28.5 (L) 36 - 45 % [facility] MCV 86.8 80 - 100 FL [facility] MCH 27.5 26 - 34 PG [facility] MCHC 31.7 (L) 32.0 - 36.0 G/DL [facility] RDW 16.0 (H) 11 - 15 % [facility] Platelet Count 387 150 - 400 K/UL [facility] MPV 7.1 7 - 11 FL [facility] Neutrophils 74 41 - 77 % [facility] Lymphocytes 20 (L) 24 - 44 % [facility] Monocytes 5 4 - 12 % [facility] Eosinophils 1 0 - 5 % [facility] Basophils 0 0 - 2 % [facility] Absolute Neutrophil Count 5.90 1.8 - 7.0 K/UL [facility] Absolute Lymph Count 1.60 1.0 - 4.8 K/UL [facility] Absolute Monocyte Count 0.40 0 - 0.80 K/UL [facility] Absolute Eosinophil Count 0.10 0 - 0.45 K/UL [facility] Absolute Basophil Count 0.00 0 - 0.20 K/UL [facility] Specimen Blood Performing Organization Address City/[facility] Phone Number [facility] [address] [place] [address] * PHOSPHORUS (08/19/2018 3:10 AM) Only the most recent of 6 results within the time period is included. Phosphorus 2.2Comment: NOTE NEW REFERENCE 2.0 - 4.5 MG/DL [facility] RANGES Specimen Blood Performing Organization Address [facility] Phone Number [facility] [address] [place] [address] * MAGNESIUM (08/19/2018 3:10 AM) Only the most recent of 9 results within the time period is included. Magnesium 1.7 1.6 - 2.6 mg/dL [facility] Specimen Blood Performing Organization Address [facility] Phone Number [facility] [address] [place] [address] * ECG-SCAN (08/18/2018 8:05 PM) Narrative Performed At Ordered by an unspecified provider. * COMPREHENSIVE METABOLIC PANEL (08/17/2018 3:50 AM) Only the most recent of 11 results within the time period is included. Sodium 133 (L) 137 - 147 MMOL/L [facility] Potassium 3.9 3.5 - 5.1 MMOL/L [facility] Chloride 105 98 - 110 MMOL/L [facility] Glucose 102 (H) 70 - 100 MG/DL [facility] Blood Urea Nitrogen 19 7 - 25 MG/DL [facility] Creatinine 0.94 0.4 - 1.00 MG/DL [facility] Calcium 8.3 (L) 8.5 - 10.6 MG/DL [facility] Total Protein 5.5 (L) 6.0 - 8.0 G/DL [facility] Total Bilirubin 0.3 0.3 - 1.2 MG/DL [facility] Albumin 2.6 (L) 3.5 - 5.0 G/DL [facility] Alk Phosphatase 88 25 - 110 U/L [facility] AST (SGOT) 15 7 - 40 U/L [facility] CO2 22 21 - 30 MMOL/L [facility] ALT (SGPT) 8 7 - 56 U/L [facility] Anion Gap 6 3 - 12 [facility] eGFR Non 60 (L) >60 mL/min [facility] Comment: The eGFR is not validated for use in drug dosing adjustments.Continue to use estimated creatinine clearance per dosing reference text.Please contact the Clinical Pharmacist for questions. eGFR >60 >60 mL/min [facility] Comment: The eGFR is not validated for use in drug dosing adjustments.Continue to use estimated creatinine clearance per dosing reference text.Please contact the Clinical Pharmacist for questions. Specimen Blood Performing Organization Address City/State/Zipcode Phone Number [facility] [address] [place] [address] * CHEST X-RAY INSPIRATION/EXPIRATION (08/16/2018 6:27 PM) Impressions Performed At Trace left apical pneumothorax with left chest tube in place. [facility] Approved by Andrei West M.D. on 08/17/2018 8:57 AM By my electronic signature, I attest that I have personally reviewed the images for this examination and formulated the interpretations and opinions expressed in this report Finalized by Mirza Weinstein M.D. on 08/17/2018 3:51 PM. Dictated by Andrei West M.D. on 08/17/2018 7:38 AM. Narrative Performed At Procedure: CHEST X-RAY INSPIRATION/EXPIRATION [facility] Clinical Indication:1 hour post chest tube placement Comparison:Chest radiograph one hour prior Findings: Inspiratory and expiratory images were obtained. A left chest tube remains in place. Decrease in size of now trace left apical pneumothorax. The heart size is normal without pulmonary venous congestion. No pleural effusion. Procedure Note Interface, Radiant Results - 08/17/2018 3:54 PM CDT Procedure: CHEST X-RAY INSPIRATION/EXPIRATION Clinical Indication: 1 hour post chest tube placement Comparison: Chest radiograph one hour prior Findings: Inspiratory and expiratory images were obtained. A left chest tube remains in place. Decrease in size of now trace left apical pneumothorax. The heart size is normal without pulmonary venous congestion. No pleural effusion. IMPRESSION Trace left apical pneumothorax with left chest tube in place. Approved by Andrei West M.D. on 08/17/2018 8:57 AM By my electronic signature, I attest that I have personally reviewed the images for this examination and formulated the interpretations and opinions expressed in this report Finalized by Mirza Weinstein M.D. on 08/17/2018 3:51 PM. Dictated by Andrei West M.D. on 08/17/2018 7:38 AM. Performing Organization Address City/State/[facility] Phone Number [facility] RAD RESULTS * CHEST IMMEDIATE POST PROCEDURE INSP/EXP (08/16/2018 5:07 PM) Impressions Performed At Interval placement of left pigtail thoracostomy tube with improvement in small [facility] RAD RESULTS left apical pneumothorax. Finalized by Fuad Canas M.D. on 08/16/2018 5:56 PM. Dictated by Fuad Canas M.D. on 08/16/2018 5:54 PM. Narrative Performed At Portable AP chest [facility] RAD RESULTS CLINICAL HISTORY: Post left chest tube placement. COMPARISON: Earlier exam timed at 0435 hours. FINDINGS: Portable AP chest demonstrates interval placement of left-sided pigtail thoracostomy tube with improvement in small left apical pneumothorax. The heart remains to be normal in size without pulmonary venous congestion. No pleural effusion or lobar consolidation. There has been removal previously noted left subclavian central line. Procedure Note Interface, Radiant Results - 08/16/2018 5:59 PM CDT Portable AP chest CLINICAL HISTORY: Post left chest tube placement. COMPARISON: Earlier exam timed at 0435 hours. FINDINGS: Portable AP chest demonstrates interval placement of left-sided pigtail thoracostomy tube with improvement in small left apical pneumothorax. The heart remains to be normal in size without pulmonary venous congestion. No pleural effusion or lobar consolidation. There has been removal previously noted left subclavian central line. IMPRESSION Interval placement of left pigtail thoracostomy tube with improvement in small left apical pneumothorax. Finalized by Fuad Canas M.D. on 08/16/2018 5:56 PM. Dictated by Fuad Canas M.D. on 08/16/2018 5:54 PM. Performing Organization Address City/State/Zipcode Phone Number [facility] RAD RESULTS * IR ASPIRATION/DRAIN (08/16/2018 4:14 PM) Only the most recent of 3 results within the time period is included. Impressions Performed At Successful placement of a left-sided 8-Northern Irish pigtail drain for pneumothorax. [facility] RAD RESULTS I, Kev Philip M.D, the attending radiologist, was present for the critical and diamond portions of the procedure with a midlevel, resident, and/or fellow participating.Overlapping portions were non diamond and I was immediately available.I interpret the critical and diamond portion of this procedure to have been needle access. @TT Approved by John Paul Caal D.O. on 08/16/2018 4:48 PM By my electronic signature, I attest that I have personally reviewed the images for this examination and formulated the interpretations and opinions expressed in this report Finalized by Kev Philip M.D. on 08/17/2018 3:44 PM. Dictated by John Paul Caal D.O. on 08/16/2018 4:46 PM. Narrative Performed At LEFT-SIDED CHEST TUBE PLACEMENT [facility] RESULTS INDICATION: Left-sided pneumothorax MEDICATIONS: I was personally responsible for the administration of moderate sedation services during the procedure performed and I confirm requirements described in CPT section on moderate sedation were followed, including the use of an independent trained observer who had no other duties during the procedure. See nursing log for complete details; the drugs utilized were:1 mg IV Versed; 50 mcg IV fentanyl. SAMPLE PULLER: Ash Capellan D.O. TECHNIQUE AND FINDINGS: A brief history and physical was obtained, and appropriate imaging was reviewed. An explanation of the procedure including risks, benefits, and alternatives was provided, and informed written consent was obtained. The patient was placed on the examination table in the supine position, and the upper chest was prepped and draped in the usual sterile fashion. The skin and subcutaneous tissues were then infiltrated with 2% lidocaine at the midclavicular line between the anterior aspects of ribs two and three. An 18-gauge Seldinger needle was placed into the pleural air collection and a 0.035 Amplatz wire was advanced through the needle. The needle was removed, and an 8-Northern Irish pigtail drainage catheter was advanced over the wire. A large volume of free air was hand aspirated. The catheter was secured to the skin with suture. Hemostasis was achieved with manual compression, and a sterile, occlusive dressing was applied. The patient tolerated the procedure well and left the department in stable condition. Procedure Note Interface, Radiant Results - 08/17/2018 3:47 PM CDT LEFT-SIDED CHEST TUBE PLACEMENT INDICATION: Left-sided pneumothorax MEDICATIONS: I was personally responsible for the administration of moderate sedation services during the procedure performed and I confirm requirements described in CPT section on moderate sedation were followed, including the use of an independent trained observer who had no other duties during the procedure. See nursing log for complete details; the drugs utilized were: 1 mg IV Versed; 50 mcg IV fentanyl. SAMPLE PULLER: Ash Capellan D.O. TECHNIQUE AND FINDINGS: A brief history and physical was obtained, and appropriate imaging was reviewed. An explanation of the procedure including risks, benefits, and alternatives was provided, and informed written consent was obtained. The patient was placed on the examination table in the supine position, and the upper chest was prepped and draped in the usual sterile fashion. The skin and subcutaneous tissues were then infiltrated with 2% lidocaine at the midclavicular line between the anterior aspects of ribs two and three. An 18 -gauge Seldinger needle was placed into the pleural air collection and a 0.035 Amplatz wire was advanced through the needle. The needle was removed, and an 8- Northern Irish pigtail drainage catheter was advanced over the wire. A large volume of free air was hand aspirated. The catheter was secured to the skin with suture. Hemostasis was achieved with manual compression, and a sterile, occlusive dressing was applied. The patient tolerated the procedure well and left the department in stable condition. IMPRESSION Successful placement of a left-sided 8-Northern Irish pigtail drain for pneumothorax. I, Kev Philip M.D, the attending radiologist, was present for the critical and diamond portions of the procedure with a midlevel, resident, and/or fellow participating. Overlapping portions were non diamond and I was immediately available. I interpret the critical and diamond portion of this procedure to have been needle access. @TT Approved by John Paul Caal D.O. on 08/16/2018 4:48 PM By my electronic signature, I attest that I have personally reviewed the images for this examination and formulated the interpretations and opinions expressed in this report Finalized by Kev Philip M.D. on 08/17/2018 3:44 PM. Dictated by John Paul Caal D.O. on 08/16/2018 4:46 PM. Performing Organization Address [facility] Phone Number RAD RESULTS * C DIFFICILE BY PCR (08/15/2018 2:30 PM) Battery Name C DIFFICILE PCR MAIN LAB Specimen Description FECES MAIN LAB Special Requests NONE [facility] C. Difficile Toxin B PCR NEGATIVE-wait 7 days to repeat [facility] test Report Status FINAL [facility] 08/15/2018 Specimen Feces Performing Organization Address [facility] Phone Number [facility] [address] [place] [address] * NOTES (08/15/2018 12:25 PM) Only the most recent of 2 results within the time period is included. Specimen Notes left neph urine REFERENCE LAB Performing Organization Address [facility] Phone Number REFERENCE LAB REFERENCE LAB See results for address. * URINALYSIS, MICROSCOPIC (08/15/2018 12:25 PM) Only the most recent of 3 results within the time period is included. WBCs,UA PACKED 0 - 2 /HPF MAIN LAB RBCs,UA PACKED 0 - 3 /HPF MAIN LAB MucousUA 1+ MAIN LAB Bacteria,UA MANY (A) NEG-NEG MAIN LAB Specimen Urine - Urine,Nephrostomy Performing Organization Address [facility] Phone Number [facility] [address] [place] [address] * CULTURE-URINE W/SENSITIVITY (08/15/2018 12:25 PM) Only the most recent of 4 results within the time period is included. Battery Name URINE CULTURE MAIN LAB Specimen Description URINE,NEPHROSTOMY MAIN LAB Special Requests NONE MAIN LAB Culture >100,000 organisms/ml MAIN LAB ENTEROCOCCUS FAECALIS <10,000 organisms/ml CONTAMINANT (A) Report Status FINAL MAIN LAB 08/17/2018 Organism ID >100,000 organisms/ml MAIN LAB ENTEROCOCCUS FAECALIS Specimen Urine - Urine,Nephrostomy Organism Antibiotic Method Susceptibility >100,000 organisms/ml Ampicillin ALDO (MCG/ML) 1 SUSCEPTIBLE: enterococcus faecalis INTERPRETATION Susceptible >100,000 organisms/ml Vancomycin ALDO (MCG/ML) 1 SUSCEPTIBLE: enterococcus faecalis INTERPRETATION Susceptible >100,000 organisms/ml Levofloxacin ALDO (MCG/ML) 1 SUSCEPTIBLE: enterococcus faecalis INTERPRETATION Susceptible >100,000 organisms/ml Nitrofurantoin ALDO (MCG/ML) <=16 SUSCEPTIBLE: enterococcus faecalis INTERPRETATION Susceptible >100,000 organisms/ml Tetracycline ALDO (MCG/ML) <=0.5 SUSCEPTIBLE: enterococcus faecalis INTERPRETATION Susceptible >100,000 organisms/ml Daptomycin ALDO (MCG/ML) 4 SUSCEPTIBLE: enterococcus faecalis INTERPRETATION Susceptible >100,000 organisms/ml Method ALDO (MCG/ML) ALDO (MCG/ML) enterococcus faecalis INTERPRETATION INTERPRETATION Performing Organization Address [facility] Phone Number [facility] [address] [place] [address] * TROPONIN-I (08/15/2018 10:20 AM) Only the most recent of 3 results within the time period is included. Troponin-I 0.03 0.0 - 0.05 NG/ML [facility] Specimen Blood Performing Organization Address [facility] Phone Number [facility] [address] [place] [address] * URINALYSIS DIPSTICK (08/15/2018 7:50 AM) Color,UA YELLOW MAIN LAB Turbidity,UA 2+ (A) CLEAR-CLEAR [facility] MAIN LAB Specific [place]-Urine 1.013 1.003 - 1.035 [facility] MAIN LAB pH,UA 5.0 5.0 - 8.0 [facility] MAIN LAB Protein,UA 2+ (A) NEG-NEG MAIN LAB Glucose,UA NEG NEG-NEG [facility] MAIN LAB Ketones,UA NEG NEG-NEG [facility] MAIN LAB Bilirubin,UA NEG NEG-NEG [facility] MAIN LAB Blood,UA 2+ (A) NEG-NEG [facility] MAIN LAB Urobilinogen,UA NORMAL NORM-NORMAL [facility] MAIN LAB Nitrite,UA NEG NEG-NEG [facility] MAIN LAB Leukocytes,UA 3+ (A) NEG-NEG [facility] MAIN LAB Urine Ascorbic Acid, UA NEG NEG-NEG [facility] MAIN LAB Specimen Urine - Urine Performing Organization Address [facility] Phone Number [facility] [address] [place] [address] * UREA NITROGEN-URINE RANDOM (08/15/2018 7:50 AM) Urea Nitrogen 461 MG/DL [facility] MAIN LAB Specimen Urine - Urine Performing Organization Address [facility] Phone Number [facility] [address] [place] [address] * CREATININE-URINE RANDOM (08/15/2018 7:50 AM) Creatinine, Random 83 MG/DL [facility] MAIN LAB Specimen Urine - Urine Performing Organization Address [facility] Phone Number [facility] [address] [place] [address] * ABDOMEN AP ONLY (08/15/2018 6:55 AM) Impressions Performed At 1.No ileus or bowel obstruction. [facility] RAD RESULTS 2.Percutaneous nephrostomy drains in place. Approved by Devyn Barros D.O. on 08/15/2018 9:59 AM By my electronic signature, I attest that I have personally reviewed the images for this examination and formulated the interpretations and opinions expressed in this report Finalized by Trent Graves M.D. on 08/15/2018 11:16 AM. Dictated by Devyn Barros D.O. on 08/15/2018 7:33 AM. Narrative Performed At Procedure: ABDOMEN AP ONLY [facility] RAD RESULTS Clinical Indication: 67-year-old female; shock. Comparison: CT abdomen pelvis dated 07/01/2018. FINDINGS: 2 supine abdominal x-rays were obtained. Nonobstructive bowel gas pattern. Heart size is normal. Visualized lower lung owesn are unremarkable. Surgical clips overlying the right upper quadrant. 2 percutaneous nephrostomy drains overlying the left and right abdomen. Procedure Note Interface, Radiant Results - 08/15/2018 11:19 AM CDT Procedure: ABDOMEN AP ONLY Clinical Indication: 67-year-old female; shock. Comparison: CT abdomen pelvis dated 07/01/2018. FINDINGS: 2 supine abdominal x-rays were obtained. Nonobstructive bowel gas pattern. Heart size is normal. Visualized lower lung owens are unremarkable. Surgical clips overlying the right upper quadrant. 2 percutaneous nephrostomy drains overlying the left and right abdomen. IMPRESSION 1. No ileus or bowel obstruction. 2. Percutaneous nephrostomy drains in place. Approved by Devyn Barros D.O. on 08/15/2018 9:59 AM By my electronic signature, I attest that I have personally reviewed the images for this examination and formulated the interpretations and opinions expressed in this report Finalized by Trent Graves M.D. on 08/15/2018 11:16 AM. Dictated by Devyn Barros D.O. on 08/15/2018 7:33 AM. Performing Organization Address [facility] Phone Number RAD RESULTS * CULTURE-BLOOD W/SENSITIVITY (08/15/2018 4:59 AM) Only the most recent of 2 results within the time period is included. Battery Name BLOOD CULTURE MAIN LAB Specimen Description BLOOD MAIN LAB RIGHT FA Special Requests NONE MAIN LAB Culture NO GROWTH 5 DAYS MAIN LAB Report Status FINAL [facility] 08/21/2018 Specimen Blood Performing Organization Address [facility] Phone Number MAIN LAB [address] [place] [address] * TSH WITH FREE T4 REFLEX (08/15/2018 4:55 AM) Only the most recent of 2 results within the time period is included. TSH 1.200 0.35 - 5.00 MCU/ML MAIN LAB Specimen Blood Performing Organization Address [facility] Phone Number MAIN LAB [address] [place] [address] * LACTIC ACID (BG - RAPID LACTATE) (08/15/2018 4:55 AM) Lactic Acid,BG 1.0 0.5 - 2.0 MMOL/L MAIN LAB Specimen Blood Performing Organization Address [facility] Phone Number MAIN LAB [address] [place] [address] * PTT (APTT) (08/15/2018 4:55 AM) APTT 28.6Comment: NOTE NEW 20.0 - 36.0 SEC MAIN LAB REFERENCE RANGES Specimen Blood Performing Organization Address [facility] Phone Number MAIN LAB [address] [place] [address] * PROTIME INR (PT) (08/15/2018 4:55 AM) INR 2.0 (H) 0.8 - 1.2 [facility] MAIN LAB Specimen Blood Performing Organization Address [facility] Phone Number [facility] MAIN LAB [address] [place] [address] * BNP (B-TYPE NATRIURETIC PEPTI) (08/15/2018 4:55 AM) Only the most recent of 2 results within the time period is included. B Type Natriuretic 129.0 (H) 0 - 100 PG/ML [facility] MAIN LAB Peptide Specimen Blood Performing Organization Address [facility] Phone Number [facility] MAIN LAB [address] [place] [address] * GENERAL RAD ABDOMEN EXTERNAL IMAGING (08/15/2018) Narrative Performed At This order has been auto finalized and does not contain a result. * GENERAL RAD CHEST EXTERNAL IMAGING (08/14/2018 12:15 AM) Only the most recent of 2 results within the time period is included. Narrative Performed At This order has been auto finalized and does not contain a result. * IR CENTRAL VENOUS CATHETER (07/04/2018 4:45 [...] needle. Access was maintained with a 6 Northern Irish sheath. A 5 Northern Irish pigtail catheter was advanced over a 0.035 [...] needle. Access was maintained with a 6 Northern Irish sheath. A 5 Northern Irish pigtail catheter was advanced over a 0.035 [...] on 07/04/2018 9:13 AM. Performing Organization Address [facility] Phone Number [facility] RESULTS * PROTEIN/CR RATIO,UR RAN (07/03/2018 2:00 PM) Protein, Random 10 MG/DL [facility] MAIN LAB Creatinine, Random 32 MG/DL [facility] Protein/CR ratio 0.3 [facility] Specimen Urine - Urine Performing Organization Address [facility] Phone Number [facility] [address] [place] [address] * IRON + BINDING CAPACITY + %SAT+ FERRITIN (07/03/2018 6:43 AM) Iron 38 (L) 50 - 160 MCG/DL [facility] Iron Binding-TIBC 285 270 - 380 MCG/DL [facility] % Saturation 13 (L) 28 - 42 % [facility] MAIN LAB Ferritin 590 (H) 10 - 200 NG/ML [facility] Specimen Blood Performing Organization Address [facility] Phone Number [facility] [address] [place] [address] * 2-D + DOPPLER ECHOCARDIOGRAM (07/02/2018 9:09 [...] OTHER OUTSIDE LAB S' Cardiology Ultrasound Siemens [id number] OTHER OUTSIDE LAB Machine Left Ventricle Mass [...] City/State/Zipcode Phone Number OTHER OUTSIDE LAB * US DOPPLER VENOUS W TIFF BILAT (07/01/2018 10:23 PM) Impressions Performed At [...] on 07/01/2018 4:18 PM. Performing Organization Address [facility]/[employer] Phone Number RAD RESULTS * ECG-SCAN (07/01/2018 2:40 PM) Narrative Performed At Ordered by an unspecified provider. * BNP POC ER (07/01/2018 2:31 PM) BNP POC 123.0 (H) 0 - 100 PG/ML [facility] MAIN LAB Performing Organization Address [facility] [employer] Phone Number [facility] MAIN LAB [address] [place] [address] * POC TROPONIN (07/01/2018 2:31 PM) Tqpxxugy-B-HPL 0.00 0.00 - 0.05 NG/ML [facility] MAIN LAB Performing Organization Address [facility] Phone Number [facility] MAIN [facility] [address] [place] [address] * UA REFLEX CULTURE LABEL (07/01/2018 2:30 PM) UA Reflex Culture LAB LABEL [facility] MAIN LAB Specimen Urine Performing Organization Address [facility] Phone Number [facility] MAIN [facility] [address] [place] [address] * URINALYSIS MICROSCOPIC REFLEX TO CULTURE (07/01/2018 [...] MAIN LAB Specimen Urine Performing Organization Address [facility]/Zipcode Phone Number [facility] MAIN LAB [address] [place] [address] * URINALYSIS DIPSTICK REFLEX TO CULTURE (07/01/2018 2:30 PM) Color,UA YELLOW [facility] MAIN LAB Turbidity,UA CLEAR CLEAR-CLEAR [facility] MAIN LAB Specific [place]-Urine 1.010 1.003 - 1.035 [facility] MAIN LAB [...] MAIN LAB Specimen Urine Performing Organization Address [facility] Phone Number [facility] MAIN [facility] [address] [place] [address] * MRI PELVIS EXTERNAL IMAGING (06/25/2018) Narrative [...] and does not contain a result. * [facility] EXTERNAL IMAGING (06/17/2018) Narrative Performed At This order has been auto finalized and does not contain a result. from Last 3 Months
--- OUTSIDE RECORDS SUMMARY | 2018-08-30 13:29 | XMS REPORT | Encounter Summary ---
Author Author [facility] Address Unknown Phone Unavailable Care Team Providers Care Volunteer Coordinator Name Role Phone Jeny Garcia MD PCP Encounter Details Date Type Department Care Team Description 08/23/2018 Procedure Pass Main Operating Room [address] [address] Social History Tobacco Use Types Packs/Day Years Used Date Former Smoker Quit: 06/03/2018 Smokeless Tobacco: Never Used Alcohol Use Drinks/Week oz/Week Comments No Sex Assigned at Date Recorded Not on file as of this encounter Functional Status Functional Status Response Date of Assessment Does the patient have a hearing impairment: No 08/23/2018 Does the patient have a visual impairment: [...] as of this encounter Plan of Treatment Not on fileas of this encounter Visit Diagnoses Not on filein this encounter
--- OUTSIDE RECORDS SUMMARY | 2018-08-30 13:29 | XMS REPORT | Encounter Summary ---
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 Name Role Phone Jeny Garcia MD PCP Reason for Visit * Auth/Cert Status Reason Specialty Diagnoses / Referred By Referred To Procedures Contact Contact Diagnoses Bilateral ureteral obstruction Bilateral ureteral obstruction [N13.5] P rocedures [place] CYSTO BLADDER W/URETERAL CATHETERIZATION [place] CYSTO BLADDER W/URETERAL CATHETERIZATION CYSTOURETHROSCOP Y WITH URETERAL CATHETERIZATION WITH/ WITHOUT IRRIGATION/ INSTILLATION/ URETEROPYELOGRAP HY Encounter Details Date Type Department Care Team Description 08/23/2018 Surgery Main Operating Room Inocente Krause MD CYSTOURETHROSCOPY WITH [facility] [address] URETERAL CATHETERIZATION, [address] [place] [address] BILATERAL [place] [address] [place] [address] ANTEGRADE PYELOGRAMS, TRANSURETHRAL RESECTION OF BLADDER TUMOR Social History Tobacco Use Types Packs/Day Years [...] F) 08/24/2018 6:11 AM CDT Respiratory Rate - - Oxygen Saturation 96% 08/24/2018 6:11 AM CDT Inhaled Oxygen - - Concentration Weight 75 kg (165 lb 5.5 oz) 08/23/2018 12:39 PM CDT Height 165.1 cm (5' 5") 08/23/2018 12:39 PM CDT Body Mass Index 27.51 08/23/2018 12:39 PM CDT in this encounter Functional Status Functional Status Response Date of Assessment Does the patient have a hearing impairment: No 08/24/2018 Does the patient have a visual impairment: Yes 08/24/2018 Does the patient have impaired ambulation: No 08/24/2018 Does the patient have an activity of daily living No 08/24/2018 (ADL) impairment: Does the patient have an instrumental activity of No 08/24/2018 daily living (IADL) impairment: Cognitive Status Response Date of Assessment Does the patient have a cognitive impairment: No 08/24/2018 as of this encounter Discharge Instructions * Discharge Instr - Appointments - Frank Cartwright MD - 08/24/2018 9:22 AM CDT We will call you with pathology and discuss follow-up at that time. You may have questions about your hospital stay after you get home. From 8 AM to 5 PM Sunday through Sunday, please call to speak with Dr. Krause's office. If calling after hours with urgent questions that cannot wait until the next day, please call and ask for the urology resident director of pediatric rehabilitation. In case of an emergency, please report to your nearest emergency department. in this encounter Medications at Time of [...] mg every 6 hours as needed tablet levoFLOXacin (LEVAQUIN) Take one tablet by mouth 9 tablet 0 2017 750 mg tabletIndications: daily. Oral Option for Gram-Negative Bacteremia levothyroxine (SYNTHROID) Take 50 mcg by mouth 03/22/2018 50 mcg tablet daily 30 minutes before breakfast. nicotine (NICODERM CQ Apply 1 patch to top of STEP 1) 21 mg/day patch skin as directed every 24 hours. ondansetron (ZOFRAN ODT) Dissolve 4 mg by mouth 4 mg rapid dissolve every 8 hours as needed tablet for Nausea or Vomiting. Place on tongue to disolve. pantoprazole DR Take one tablet by mouth 08/19/2018 (PROTONIX) 40 mg tablet daily. as of this encounter Progress Notes * Shaila Perez RN - 08/24/2018 11:32 AM CDT Patient states understanding of all instructions and has no further questions at this time. 1115: Peripheral IV removed. ? 1132: Patient left unit via wheelchair accompanied by transport. Patient A&O x4 , vital signs stable. * Sahra Abbott MD - 08/24/2018 6:26 AM CDT Formatting of this note may be different from the original. Urology Progress Note 08/24/2018 ASSESSMENT: Aracelis Espinal is a 67 y.o. Female with bilateral ureteral strictures managed with nephrostomy tubes s/p URS, TURBT on 08/23. LOS: 0 days PLAN: Will discuss plan with staff surgeon - Dr. Abbott - Pain control: PO with IV breakthrough - Diet/FEN: Diet Clear Liquid Advance Diet as Tolerated, SLIVF - GI: Bowel regimen, zofran prn - : Lopes out, trial of void - Heme/ID: Afebrile. 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 Pain is well-controlled. Patient denies nausea, denies vomiting, is ambulating. Patient is tolerating Diet Clear Liquid Advance Diet as Tolerated. OBJECTIVE: Vital Signs: Most Recent Vital Signs: Past 24 Hours BP: 114/57 (08/24 611) Temp: 36.7 C (98 F) (08/24 611) Pulse: 93 (08/24 611) Respirations: 15 PER MINUTE (08/24 611) SpO2: 96 % (08/24 611) O2 Delivery: None (Room Air) (08/24 611) Height: 165.1 cm (65") (08/23 1239) Weight: 75 kg (165 lb 5.5 oz) (08/23 1239) BP: (98-138)/(54-84) Temp: [35.8 C (96.4 F)-37 C (98.6 F)] Pulse: [73-94] Respirations: [9 PER MINUTE-15 PER MINUTE] SpO2: [93 %-100 %] O2 Delivery: None (Room Air) Physical Exam: General: Alert & oriented, no acute distress Pulm: Equal chest rise, non-labored CV: Regular rate and rhythm Extremities: SCD's in place Abd: Soft, appropriately tender to palpation, non-distended : Lopes catheter in place draining yellow urine, R NT draining yellow urine, L NT draining yellow urine Intake/Output: Date 08/23/18700 - 08/24/1869908/24/18700 - 08/25/18 07 Shift 9988-3019 5403-5498 24 Hour Total 0884-2677 9623-9203 24 Hour Total I N T A K E P.O. 240 250 490 I.V. (mL/kg/hr) 1700 (1.9) 1700 Shift Total (mL/kg) 1940 (25.9) 250 (3.3) 2190 (29.2) O U T P U T Urine (mL/kg/hr) 750 (0.8) 925 1675 Urine Output (ml) (NEPHROSTOMY TUBE 08/15/18 1204 Left 8 FR) 275 300 575 Urine Output (ml) (NEPHROSTOMY TUBE 08/23/18 1113 Right) 400 550 950 Urine Output (ml) (Indwelling Urinary Catheter 08/23/18 1115) 75 75 150 Shift Total (mL/kg) 750 (10) 925 (12.3) 1675 (22.3) NET 1190 -675 515 Weight (kg) 75 75 75 75 75 75 Labs: Hematology Chemistry Recent Labs 08/24/18 0356 WBC 15.2* HGB 9.1* PLTCT 444* Recent Labs 08/24/18 0356 NA 135* K 3.3* CL 100 CO2 23 BUN 14 CR 1.33* GFR 40* GLU 129* CA 8.5 ACTIVE PROBLEMS: Active Problems: Aspiration into airway ATTESTATION I personally discussed case and E/M with resident, and concur with resident documentation of history, physical assessment and treatment plan unless otherwise noted. Staff name: Sahra Abbott MD * Anant Cruz, RT - 08/23/2018 1:42 PM CDT RT Adult Assessment Note NAME:Aracelis Espinal :1950 AGE: 67 y.o. ADMISSION DATE: 08/23/2018 DAYS ADMITTED: LOS: 0 days RT Treatment Plan: Protocol Plan: Procedures Comment: IS with nursing Additional Comments: Impressions of the patient: pt with no respiratory complications at this time. Stating a sore throat and a bit of a lose cough; however, pt has a strong cough and clear BS. RA. IS 1500ml Intervention(s)/outcome(s): IS with nursing Vital Signs: Pulse: Pulse: 93 RR: Respirations: 14 PER MINUTE SpO2: SpO2: 98 % O2 Device: Liter Flow: O2%: O2 Percent: 21 % Breath Sounds: Respiratory Effort: Respiratory Effort: Non-Labored * Devi Tabor, RN - 08/23/2018 12:31 PM CDT Patient arrived to room # (818*) via cart accompanied by transport. Patient transferred to the bed with assistance. Bedside safety checks completed. Initial patient assessment completed, refer to flowsheet for details. Admission skin assessment completed by: vaishali Amos CNA Pressure Injury Present on Hospital Admission (within [...] Yes 16. Nursing Nutrition Assessment Completed Yes * Zina Johnston RN - 08/23/2018 11:48 AM CDT Report given to ELADIO Quinonez on HC8. * Zina Johnston RN - 08/23/2018 11:08 AM CDT 1108: Dr. Okeefe at pt bedside for pain consult. Ordered to give levsin for catheter discomfort. Dr. Okeefe to put in order. in this encounter H&P Notes * Inocente Krause MD - 08/23/2018 8:14 AM CDT Formatting of this note may be different from the original. Urology History and Physical Examination 08/23/2018 Patient: Aracelis Espinal Admission Date: 08/23/2018, LOS: 0 days Admission Diagnosis: Bilateral ureteral obstruction [N13.5] ASSESSMENT: 67 y.o. female with bilateral ureteral strictures managed with nephrostomy tubes PLAN: - to OR today for further evaluation Discussed plan of care with staff surgeon, Dr. Kraues, who directed plan of care __ HPI: Aracelis Espinal is a 67 y.o. female with history of bilateral ureteral strictures managed with nephrostomy tubes. During initial presentation 05/2018 required HD. Cr subsequently improved. Majority of urine drains per NTs. No clear etiology of obstruction. Here today for evaluation of degree, location, and length of strictures. No problems since discharge from 08/19/18 ( admitted with sepsis presumed related to UTI and malfunction of NT). Past Medical History: Diagnosis Date Anemia Anxiety [...] Take one tablet by mouth twice daily. 60 tablet 3 calcium carbonate (TUMS) 500 mg (200 mg elemental calcium) chewable tablet Chew 1 tablet by mouth twice daily as needed. carboxymethylcellulose (REFRESH PLUS) 0.5 % dpet Apply [...] Take one tablet by mouth every morning. 90 tablet 3 HYDROcodone/acetaminophen(+) (NORCO) 10/325 mg tablet Take 1 tablet by mouth every 6 hours as needed levothyroxine (SYNTHROID) 50 mcg tablet Take 50 mcg by mouth daily 30 minutes before breakfast. nicotine (NICODERM CQ STEP 1) 21 mg/day patch Apply 1 patch to top of skin as directed every 24 hours. Allergies: Codeine Social History Social History Marital [...] Hours Vital Signs: 24 Hour Range BP: 110/73 (08/23 730) Temp: 36.7 C (98.1 F) (08/23 730) Pulse: 93 (08/23 730) Respirations: 13 PER MINUTE (08/23 730) SpO2: 99 % (08/23 730) O2 Delivery: None (Room Air) (08/23 730) Height: 165.1 cm (65") (08/23 730) BP: (110)/(73) Temp: [36.7 C (98.1 F)] Pulse: [93] Respirations: [13 PER MINUTE] SpO2: [99 %] O2 Delivery: None (Room Air) Intake/Output: No intake or output data in the 24 hours ending 08/23/18813 Physical Exam: GEN: well nourished, in no distress, alert, oriented HEENT: normocephalic, EOMI CHEST: nonlabored on RA, equal chest rise CV: regular rate, regular rhythm, symmetric radial pulse ABD: soft, non-tender, non-distended : nephrostomy tubes draining clear yellow EXT: strength/sensation grossly intact bilaterally ROS: A complete 14 point ROS was obtained and was negative except for those listed in HPI Lab/Radiology/Other Diagnostic Tests: No results for input(s): HGB, HCT, WBC, PLTCT, NA, K, CL, CO2, BUN, CR, GLU, CA , MG, PO4, ALBUMIN, TOTPROT, TOTBILI, AST, ALT, ALKPHOS, KENIA, LIPASE, PREALB, INR, PT, PTT in the last 72 hours. Fany Andrea MD Attestation I saw and evaluated pt with the resident on rounds and performed the diamond portions of the e/m. I agree with the above assessment and plan. in this encounter Miscellaneous Notes * Care Plan - Shaila Perez RN - 08/24/2018 11:32 AM CDT Problem: Infection, Risk of, Urinary Catheter-Associated Urinary Tract Infection Goal: Absence of urinary catheter-associated infection Outcome: Goal Achieved Date Met: 08/24/18 Demonstrated no signs of infection related to catheter. Problem: Pain Goal: Management of pain Outcome: Goal Achieved Date Met: 08/24/18 Complained of no pain during this shift. Goal: Knowledge of pain management Outcome: Goal Achieved Date Met: 08/24/18 Educated on available pain management. Goal: Progress Toward Pain Management Goals Outcome: Goal Achieved Date Met: 08/24/18 No pain during this shift. Problem: Discharge Planning Goal: Participation in plan of care Outcome: Goal Achieved Date Met: 08/24/18 Actively participated in plan of care. Goal: Knowledge regarding plan of care Outcome: Goal Achieved Date Met: 08/24/18 Educated on upcoming discharge and medication management. Goal: Prepared for discharge Outcome: Goal Achieved Date Met: 08/24/18 Peripheral IV removed. Discharge teaching performed. No further questions at this time. * Operative Report (DICTATED ONLY) - Inocente Krause MD - 08/23/2018 11:40 AM CDT [address] [id number] PATIENT NAME: ARACELIS ESPINAL MR#/PT#: [id number] Page 2 OPERATIVE REPORT DATE OF OPERATION: 08/23/2018 SURGEON: Inocente Krause MD DATA WAREHOUSE MANAGER(S): Fany Andrea MD. PREOPERATIVE DIAGNOSIS: 1. Bilateral ureteral obstruction. 2. Circumferential bladder wall thickening. POSTOPERATIVE DIAGNOSIS: Same. OPERATIVE PROCEDURE: 1. Cystoscopy. 2. Transurethral resection of bladder tumor size 2 to 5 cm. 3. Bilateral retrograde pyelogram with interpretation of documentation images. 4. Exam under anesthesia. 5. Bilateral antegrade nephrostogram. ANESTHESIA: General. INDICATIONS FOR OPERATIVE PROCEDURE: Findings: 1. Fixed anterior vaginal wall and nodular bladder fixed within the pelvis on exam under anesthesia. 2. Small capacity, poorly compliant bladder. 3. Nodularity and circumferential thickness of the bladder wall without obvious intraluminal or papillary masses. 4. Antegrade and retrograde on the right showed moderate hydronephrosis with tapering at the right UPJ with string like passage of contrast for approximately 5 cm followed by 5 cm segment of normal ureter followed by again string like narrowing of the distal ureteral segment. 5. Left retrograde antegrade pyelogram similar except normal ureter length was 2 cm intervening. Ms. Espinal is a 67-year-old female who presented to an outside hospital with malaise, bilateral lower extremities. Labs were found significantly elevated creatinine above 9 and she was admitted to the hospital. CT scan revealed bilateral hydronephrosis. Cystoscopy was performed and bilateral stents were placed. The patient's creatinine did improve, but eventually got worse and right nephrostomy tube was placed. She was then set up to follow up at [facility]. She presented to clinic with significant lower extremity edema and complications and was admitted to the hospital. She had an MRI at outside hospital that showed circumferential bladder wall thickening, but no obvious tumors or masses were identified. She underwent a colonoscopy, which was without abnormality. She then underwent bilateral nephrostomy tube placement, ureteral stent removal and presents today for evaluation of her urinary system. The risks, benefits, and alternatives of the procedure were discussed with the patient, agreed to continue and informed consent was obtained. DESCRIPTION AND FINDINGS OF OPERATIVE PROCEDURE: After informed consent was obtained, the patient was appropriately identified in the preoperative holding area and taken to the operating room and placed on the OR table in supine position. A brief time-out was performed to appropriately identify the patient, procedure, allergies, and antibiotics. Next , LMA was placed. They were having difficulty ventilating it and removed her LMA and during this, the patient had a small volume aspiration. Please see the dedicated Anesthesiology notes for further details who suctioned her and intubated her and we proceeded with the procedure. She was placed in low lithotomy position. All pressure points were appropriately padded. She was prepped and draped in usual sterile fashion. A 21-German cystoscope was inserted into the urethra in atraumatic fashion. This revealed a very small capacity very poorly compliant rigid bladder. There was no obvious papillary masses within the bladder, but there was nodularity of the bladder wall circumferentially. We could not identify the ureteral orifices. We elected to proceed with resection for biopsy to help with tissue diagnosis. Prior to resection, we performed an exam under anesthesia, which revealed a fixed anterior vaginal wall and a firm bladder wall that was not mobile within the pelvis. There was no obvious invasion through the vaginal wall. The resectoscope was then inserted and we took a several swipes from the desk representative sections around the bladder. Remainder of the bladder was very inflamed and friable. After resecting, we were able to identify the ureteral orifices. We performed antegrade nephrostogram bilaterally, which showed on the right side, mild to moderate hydronephrosis with string like tapering at the UPJ with minimal passage of contrast past the UPJ. On the left it showed iglo-[id number] hydronephrosis with again tapering at the UPJ with almost no contrast passing through the UPJ. We then performed retrograde pyelogram, which revealed against ring-like narrowing on the right side to the pelvic inlet. Within, there was approximately 5 cm normal segment that then met the proximal narrowing, which again was string like and very wispy. On the left, retrograde were similar, but there was a 2-3 cm normal intervening segment. At this point, we achieved hemostasis with the resectoscope and left the bladder full. We inserted a 20-German Lopes catheter. The drapes were removed. The patient was then extubated following the chest x-ray, which was normal and she was transported to the PACU in stable condition. ESTIMATED BLOOD LOSS: 25mL SPECIMENS REMOVED: To Pathology was bladder mass chips. COMPLICATIONS: Small volume aspiration. DISPOSITION: The patient will be admitted to the floor and will be monitored for postaspiration complications. Attestation I was present, scrubbed, and participated in the entire procedure with a resident, and without overlapping cases Inocente Krause MD / MED /2/[id number] cc: - Inocente Krause MD * Procedures (Immed Post or Bedside) - Fany Andrea MD - 08/23/2018 10:37 AM CDT Formatting of this note may be different from the original. Brief Operative Note Name: Aracelis Espinal is a 67 y.o. female : 1950 MRN# : [id number] DATE OF OPERATION: 08/23/2018 Date: 08/23/2018 Preoperative Dx: Bilateral ureteral obstruction [N13.5] Post-op Diagnosis * Bilateral ureteral obstruction [N13.5] Procedure(s) (LRB): CYSTOURETHROSCOPY WITH URETERAL CATHETERIZATION, BILATERAL RETROGRADE AND ANTEGRADE PYELOGRAMS, TRANSURETHRAL RESECTION OF BLADDER TUMOR (Bilateral) Anesthesia Type: General Surgeon(s) and Role: * Inocente Krause MD - Primary * Fany Andrea MD - Resident - Assisting Findings: Marked inflammatory-appearing mass lesions within bladder diffusely; ureteral orifices located at bladder neck; very narrow ureteral stricture of distal and proximal ureter with small intervening segment with normal-appearing caliber Emesis after induction; LMA -> ETT with small amount aspirated from ETT with suction after placement CXR at conclusion of case without significant acute findings Estimated Blood Loss: No blood loss documented. Specimen(s) Removed/Disposition: ID Type Source Tests Collected by Time Destination 1 : BLADDER MASS FOR ROUTINE Tissue Bladder Chips SURGICAL PATHOLOGY Inocente Krause MD 08/23/2018 0925 Implants: None Drains: Lopes Catheter: 10 mL in balloon Bilateral nephrostomy tubes draining large majority of urine Disposition: PACU - stable Fany Andrea MD Pager [phone] Associated attestation - Inocente Krause MD - 08/23/2018 11:21 AM CDT Attestation I was present, scrubbed, and participated in the entire procedure with a resident, and without overlapping cases in this encounter Plan of Treatment Name Priority Associated Diagnoses Order Schedule SURGICAL PATHOLOGY Routine Bilateral ureteral ONCE for 1 Occurrences obstruction starting 08/23/2018 as of this encounter Procedures Procedure Name [...] CDT obstruction WITH/ WITHOUT IRRIGATION/ INSTILLATION/ URETEROPYELOGRAPHY in this encounter Results * CBC (08/24/2018 3:56 AM) White [...] LAB MCHC 32.2 32.0 - 36.0 G/DL MAIN LAB RDW 16.4 (H) 11 - 15 % [facility]IN LAB Platelet Count 444 (H) 150 - 400 K/UL MAIN LAB MPV 6.8 (L) 7 - 11 FL MAIN LAB Performing Organization Address [facility] Phone Number [facility] [address] [place] [address] * BASIC METABOLIC PANEL (08/24/2018 3:56 AM) Sodium 135 (L) 137 - 147 [...] for questions. eGFR 48 (L) >60 mL/min MAIN LAB Comment: The eGFR is not validated for use in drug dosing adjustments.Continue to use estimated creatinine clearance per dosing reference text.Please contact the Clinical Pharmacist for questions. Performing Organization Address City/[facility] Phone Number [facility] [address] [place] [address] * SURGICAL PATHOLOGY (08/23/2018 10:44 AM) PATHOLOGY REPORT [facility] [employer] [email or web address] Department of Pathology and Laboratory Medicine [address] [place] [address] Surgical Pathology Office:[phone] :[phone] SURGICAL PATHOLOGY REPORT NAME: ARACELIS ESPINAL SURG PATH #: [id number] MR #: [id number] SPECIMEN CLASS: SR BILLING #: [id number] ALT ID #:LOCATION: HC8 DATE OF PROCEDURE: 08/23/2018 AGE:67 SEX: F DATE RECEIVED: 08/23/2018 : 1950TIME RECEIVED:10:44 PHYSICIAN: INOCENTE KRAUSE MD DATE OF REPORT: 08/27/2018 COPY TO:DATE OF PRINTIN08/27/2018 Procedures/Addenda Immunohistochemical Date Ordered: 08/27/2018 Status:Signed Out Date Complete: 08/27/2018 By: Preet Holley MD Date Reported: 08/27/2018 Interpretation The diagnosis remains the same. 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 Preet Holley MD ############################## ############################## ############ Final Diagnosis: A. Bladder, "bladder mass", biopsy: Plasmacytoid urinary bladder carcinoma. SEE COMMENT Comment: Immunohistochemical stains supporting the diagnosis: Positive for pancytokeratin and cytokeratin CAM 5.2. Focally positive for CD138. [place] E-cadherin on tumor cells. These findings support the above diagnosis. Pursuant to the Manager Care Program at the [facility] Pathology Department, selected slides from this case [...] x 0.4 cm Cassettes A1-A2- Entire specimen.(wlm) wlm/08/23/2018 If immunohistochemical stains and/or in situ hybridization are cited in this report, the performance characteristics were determined by the Department of Pathology and Laboratory Medicine of the [facility] ([employer]) in compliance with [...] of Pathology and Laboratory Medicine of the [facility].It has not been cleared or approved by the FDA.The FDA has determined that such clearance or approval is not necessary. Performing Organization Address City/State/Zipcode Phone Number [facility] RESULTS * FLUORO MOBILE IN OR (08/23/2018 10:15 AM) Narrative Performed At This order has been auto finalized and does not contain a result. [facility] Performing Organization Address City/State/Zipcode Phone Number [facility] * CHEST SINGLE VIEW (08/23/2018 10:14 AM) Impressions Performed At Interval placement of endotracheal [...] Address City/State/Zipcode Phone Number [facility] RESULTS in this encounter Visit Diagnoses Diagnosis Bilateral ureteral obstruction Admitting Diagnoses Diagnosis Bilateral ureteral obstruction - Bilateral ureteral obstruction [N13.5] Aspiration into airway Administered Medications Medication Order MAR Action Action Date Dose Rate Site apixaban (ELIQUIS) tablet 5 mg Given 08/23/2018 5 mg 5 mg, Oral, TWICE DAILY, First dose on 21:02 CDT Sun08/23/18 at 2100, Until Discontinued, May crush 5 mg or 2.5 mg tablets and suspend in 60 mL of D5W followed by immediate delivery through a nasogastric tube. No information regarding administration of suspension by mouth is available. NOTE: This is a HIGH ALERT Medication. Given 08/24/2018 5 mg 08:07 CDT calcium carbonate (TUMS) chew tablet 500 Given 08/23/2018 500 mg mg 13:13 CDT 500 mg, Oral, TWICE DAILY WITH MEALS, First dose on Sun08/23/18 at 1230, Until Discontinued, Each tab delivers 200mg elemental calcium. Given 08/23/2018 500 mg 17:25 CDT Given 08/24/2018 500 mg 08:07 CDT dextran 70/hypromellose (GENTEAL TEARS; BION TEARS) ophthalmic solution 1 drop 1 drop, Both Eyes, EVERY 6 HOURS PRN, Starting Sun08/23/18 at 1242, Until 08/24/18 at 1332, Dry Eyes dextrose 5 % lactated ringers infusion Given - New 08/23/2018 75 mL/ hr 1,000 mL, Intravenous, at 75 mL/hr, Bag 11:23 CDT CONTINUOUS, Starting Sun08/23/18 at 1100, Until 08/24/18 at 1029 Given - New Bag 08/23/2018 75 mL/hr 23:16 CDT docusate (COLACE) capsule 100 mg Given 08/23/2018 100 mg 100 mg, Oral, TWICE DAILY, First dose on 13:13 CDT Sun08/23/18 at 1230, Until Discontinued, Hold for loose stools Given 08/23/2018 100 mg 21:02 CDT Given 08/24/2018 100 mg 08:07 CDT FENTANYL CITRATE (PF) 50 MCG/ML IJ SOLN (Cabinet Override) NOW, 1 dose, Sun08/23/18 at 1100, Created by cathie castroide fentaNYL citrate PF (SUBLIMAZE) Given 08/23/2018 25 mcg injection 50 mcg 10:48 CDT 50 mcg, Intravenous, EVERY 5 MIN PRN, Starting Sun08/23/18 at 1045, Until Sun08/23/18 at 1231, Pain Injectable, For Pain Score 7-10, Maximum total dose of 200 mcg Hold for RR < 10 Given 08/23/2018 25 mcg 10:59 CDT Given 08/23/2018 50 mcg 11:18 CDT furosemide (LASIX) tablet 40 mg Given 08/23/2018 40 mg 40 mg, Oral, EVERY MORNING, First dose 13:36 CDT on Sun08/23/18 at 1230, Until Discontinued Given 08/24/2018 40 mg 08:49 CDT haloperidol (HALDOL) injection 1 mg Given 08/23/2018 1 mg 1 mg, Intravenous, ONCE PRN, 1 dose, 10:54 CDT Starting Sun08/23/18 at 1045, Until Sun08/23/18 at 1054, Other..., Nausea and Vomiting, Second line agent, give if first line agent ineffective. DO NOT ADMINISTER if given intraoperatively. hyoscyamine (ANASPAZ; NULEV; SYMAX Given 08/23/2018 0.125 mg FASTABS; HYOMAX-FT; ED-SPAZ; OSCIMIN) 11:31 CDT rapid dissolve tablet 0.125 mg 0.125 mg, Sublingual, ONCE, 1 dose, Sun08/23/18 at 1130, PACU (only) iopamidol 300 (ISOVUE-300) 61 % Given 08/23/2018 50 mL injection 09:30 CDT INTRA-PROCEDURE MED, Starting Sun08/23/18 at 1036, Until Sun08/23/18 at 1231, Intra-op lactated ringers infusion Given - New 08/23/2018 1,000 mL 20 mL/hr 1,000 mL, 1,000 mL, Intravenous, at 20 Bag 07:32 CDT mL/hr, CONTINUOUS, Starting Sun08/23/18 at 0715, Until 08/24/18 at 1029, Pre-Op Given - New Bag 08/23/2018 09:28 CDT LACTATED RINGERS IV SOLP (Cabjorget Override) NOW, 1 dose, Sun08/23/18 at 0600, Created by cathie mojica levoFLOXacin (LEVAQUIN) tablet 750 mg Given 08/24/2018 750 mg 750 mg, Oral, EVERY 24 HOURS, First dose 06:36 CDT on 08/24/18 at 0600, Until Discontinued, NURSING: Please educate patient and document: Give 1 hour before or 2 hours after meals. If patient is receiving tube feedings, hold tube feedings 1 hour before and 2 hours after dose. Do not give within 2 hours of antacids, magnesium, calcium, iron, zinc, or vitamins containing these minerals. levothyroxine (SYNTHROID) tablet 50 mcg Given 08/24/2018 50 mcg 50 mcg, Oral, DAILY 30MIN BEFORE 06:34 CDT BREAKFAST, First dose on 08/24/18 at 0630, Until Discontinued, Give 1 hour before a meal. If patient is receiving tube feedings, hold tube feed 1hr before and 1hr after dose. ondansetron (ZOFRAN) injection 4 mg Given 08/23/2018 4 mg 4 mg, Intravenous, EVERY 6 HOURS PRN, 17:36 CDT Starting Sun08/23/18 at 1724, Until 08/24/18 at 1332, Nausea/Vomiting Injectable Given 08/24/2018 4 mg 10:[address] (PROTONIX) tablet 40 mg Given 08/23/2018 40 mg 40 mg, Oral, DAILY, First dose on Sun 13:13 CDT 08/23/18 at 1230, Until Discontinued, Do not crush or chew tablet. Given 08/24/2018 40 mg 08:07 CDT in this encounter
--- OUTSIDE RECORDS SUMMARY | 2018-08-30 13:29 | XMS REPORT | Encounter Summary ---
Author Author [facility] Organization [facility] Address Unknown Phone Unavailable Care Team Providers Care Compliance Administrator Name Role Phone Jeny Garcia MD PCP Reason for Visit * Auth/Cert Status Reason Specialty Diagnoses / Referred By Referred To Procedures Contact Contact Diagnoses Bilateral ureteral obstruction Bilateral ureteral obstruction [N13.5] P rocedures SC CYSTO BLADDER W/URETERAL CATHETERIZATION SC CYSTO BLADDER W/URETERAL CATHETERIZATION CYSTOURETHROSCOP Y WITH URETERAL CATHETERIZATION WITH/ WITHOUT IRRIGATION/ INSTILLATION/ URETEROPYELOGRAP HY Encounter Details Date Type Department Care Team Description 08/23/2018 Anesthesia Main Operating Room Brigido Lu, SRNA Event [address] [place] [address] Anesthesia Record Procedure Name Responsible Anesthesia Start Time Anesthesia Stop Time Anesthesiologist CYSTOURETHROSCOPY WITH Johan Frye MD 08/23/18 0830 08/23/18 1028 URETERAL CATHETERIZATION, BILATERAL RETROGRADE AND ANTEGRADE PYELOGRAMS, TRANSURETHRAL RESECTION OF BLADDER TUMOR (Bilateral Ureter) Date Time Event Comment 820 AN Equip Check 2017 0829 Out of Pre Procedure 0830 Anes Start 0832 In Room 0832 An Start Data 0835 An Induction The patient was reevaluated immediately before moderate or deep sedation use and before anesthesia induction. 0843 An Intubation 0845 Anesthesia Ready 0901 Antibiotic Given 0904 Proc Start 1022 An Extubation 1025 an stop data 1028 Handoff to RN I completed my SBAR handoff to the receiving nurse. 1028 An Stop Meds Name Total midazolam (VERSED) 1 mg/mL injection 2 mg fentaNYL PF (SUBLIMAZE) injection 175 mcg lidocaine (2%) 200 mg/10mL Injection 60 mg syringe propofol (DIPRIVAN) 200 mg/ 20 mL 200 mg injection (VIAL) succinylcholine (ANECTINE) injection 80 mg (VIAL) ondansetron (ZOFRAN) injection 4 mg dexamethasone (DECADRON) 4 mg/mL 4 mg injection levofloxacin (LEVAQUIN) 750 mg/150 mL 500 mg IVPB esmolol (BREVIBLOC) 10 mg/mL injection 40 mg lactated ringers infusion 1,000 mL * Name N2O Inspired N2O Sevoflurane Inspired Sevoflurane * No blood administrations on file. Type Details Placement Removal Pressure 08/15/18; 0430; Y; Right; Heel; Stage 1 08/15/18 0430 by Reinaldo Hernandez RN Pressure 08/15/18; 0430; Coccyx; Stage 1 08/15/18 0430 by Reinaldo Hernandez RN Wounds 08/15/18; 0430; Buttocks; Moisture 08/15/18 0430 by David, (NOT for Associated Skin Damage ELADIO Vera Pressure Injuries) NEPHROSTOM 08/15/18 (changed); 1204; Left; 8 FR 08/15/18 1204 by Y TUBE (8.5 Fr) Adelaide Burroughs RN NEPHROSTOM 08/15/18; 1227; Right; 8 FR 08/15/18 1227 by Dave, Y TUBE ELADIO Wong Wounds 08/23/18; 0812; Perineum; Surgical 08/23/18 0812 by (NOT for Incision; NO DRESSINGS Debi Hernandez RN Pressure Injuries) Peripheral 08/23/18; 0730; RN; R; Hand; 18 G; No; 08/23/18 0730 by Garcia, 08/24/18 1053 by KULDIP Perez 1; 08/24/18; 1053 ELADIO Phelps RN ETT 08/23/18; 0844; Ventilated by mask (1); 08/23/18 0844 by 08/23/18 1022 by Direct laryngoscopy, Stylet; Ian Mcdermott MD Hermanson, Alec, MD Single-Lumen, Cuffed; 7mm; Mac; 3; Oral; 1-Full view of the glottis; 1 insertion attempt; Auscultation, ETCO2 Detector; 21 centimeters; LMA 3 initially placed; pt developed increased leak with inadequate tidal volumes. HR and BP increased as well and decision made to DL. Aspiration of gastric contents recognized. Oropharynx suctioned and ETT placed. Tracheal suction performed through ETT. ; 08/23/18; 1022 in this encounter Social History Tobacco Use Types Packs/Day Years Used Date Former Smoker Quit: 06/03/2018 Smokeless Tobacco: Never Used Alcohol Use Drinks/Week oz/Week Comments No Sex Assigned at Date Recorded Not on file as of this encounter Functional Status Functional Status Response Date of Assessment Does the patient have a hearing impairment: No 08/19/2018 Does the patient have a visual impairment: Yes 07/30/2018 Does the patient have impaired ambulation: No 07/30/2018 Does the patient have an activity of daily living No 07/30/2018 (ADL) impairment: Does the patient have an instrumental activity of No 07/30/2018 daily living (IADL) impairment: Cognitive Status Response Date of Assessment Does the patient have a cognitive impairment: No 07/30/2018 as of this encounter OR Notes * Anesthesia Postprocedure Evaluation - Willard Oliva MD - 08/23/2018 11: 44 AM CDT Post-Anesthesia Evaluation Name: Aracelis Espinal : 1950 Age: 67 y.o. Sex: female Procedure Date: 08/23/2018 Procedure: Procedure(s) with comments: CYSTOURETHROSCOPY WITH URETERAL CATHETERIZATION, BILATERAL RETROGRADE AND ANTEGRADE PYELOGRAMS, TRANSURETHRAL RESECTION OF BLADDER TUMOR - CASE LENGTH 1 HOUR Surgeon: Surgeon(s): Perry Moseley MD Metcalf, Meredith, MD Post-Anesthesia Vitals BP: 121/75 (08/23 1130) Temp: 36.1 C (97 F) (08/23 1100) Pulse: 87 (08/23 1130) Respirations: 9 PER MINUTE (08/23 1130) SpO2: 97 % (08/23 1130) O2 Delivery: None (Room Air) (08/23 1130) SpO2 Pulse: 88 (08/23 1130) Post Anesthesia Evaluation Note Evaluation location: pre/post Patient participation: recovered; patient participated in evaluation Level of consciousness: alert Pain score: 0 Pain management: adequate Hydration: normovolemia Temperature: 36.0C - 38.4C Airway patency: adequate Perioperative Events Perioperative events: no Post-op nausea and vomiting: no PONV Postoperative Status Cardiovascular status: hemodynamically stable Respiratory status: spontaneous ventilation Resting comfortably. No cough or dyspnea. Perioperative Events Perioperative Event: No Emergency Case Activation: No * Anesthesia Preprocedure Evaluation - Johan Frye MD - 08/19/2018 2:51 PM CDT Formatting of this note may be different from the original. Anesthesia Pre-Procedure Evaluation Name: Aracelis Espinal : 1950 Age: 67 y.o. Sex: female Procedure Date: 08/23/2018 Procedure: Procedure(s) with comments: CYSTOURETHROSCOPY WITH URETERAL CATHETERIZATION WITH/ WITHOUT IRRIGATION/ INSTILLATION/ URETEROPYELOGRAPHY - CASE LENGTH 1 HOUR Physical Assessment Vital Signs (last filed in past 24 hours): BP: 108/63 (08/19 800) Temp: 36.9 C (98.4 F) (08/19 800) Pulse: 101 (08/19 800) Respirations: 18 PER MINUTE (08/19 800) SpO2: 94 % (08/19 800) O2 Delivery: None (Room Air) (08/19 800) Patient History Allergies Allergen Reactions Codeine VOMITING Current Medications Medication Directions acetaminophen (TYLENOL) 325 mg tablet Take 1 [...] of skin as directed every 24 hours. ondansetron (ZOFRAN ODT) 4 mg rapid dissolve tablet Dissolve 4 mg by mouth every 8 hours as needed for Nausea or Vomiting. Place on tongue to disolve. pantoprazole DR (PROTONIX) 40 mg tablet Take 40 mg by mouth twice daily. torsemide(+) (DEMADEX) 20 mg tablet Take 20 mg by mouth daily with breakfast. Review of Systems/Medical History Patient summary reviewed Nursing notes reviewed PONV Screening: Female gender and Postoperative opioids Airway - negative Pulmonary Current smoker; patient did not smoke on day of surgery Cardiovascular Recent diagnostic studies: ECG and echocardiogram Exercise tolerance: >4 METS Beta Jane therapy: No Beta blockers within 24 hours: No PVD DVT ( - US07/01 + R popliteal DVT) - Echo 07/02/2018 - LVEF 60%, normal diastolic function, mild LVH, normal RV & valves GI/Hepatic/Renal GERD, well controlled Nausea - MEE d/t L PCN malfunction - Briefly required HD in May - Renal scan (OSH) 06/17 - 70+ function of L kidney & 20 or less function of R kidney - b/l percutaneous nephrostomy tubes Neuro/Psych - negative Psychiatric history Depression Musculoskeletal - negative Endocrine/Other - negative Anemia Blood dyscrasia: on Equiquis d/t DVT. Obesity Physical Exam Airway Findings Mallampati: II TM distance: >3 FB Neck ROM: full Mouth opening: good Airway patency: adequate Dental Findings: Full, partials, poor dentition and increased risk for dental injury; pt advised Comments: Full dentures on top, partials on the bottom Cardiovascular Findings: Negative Rhythm: regular Pulmonary Findings: Negative Breath sounds clear to auscultation. Abdominal Findings: Obese Abdomen soft Bowel sounds normal. Neurological Findings: Negative Diagnostic Tests Hematology: Lab Results Component Value Date HGB 9.0 08/19/2018 HCT 28.5 08/19/2018 PLTCT 387 08/19/2018 WBC 8.0 08/19/2018 NEUT 74 08/19/2018 ANC 5.90 08/19/2018 ALC 1.60 08/19/2018 ABHAY 5 08/19/2018 AMC 0.40 08/19/2018 EOSA 1 08/19/2018 ABC 0.00 08/19/2018 MCV 86.8 08/19/2018 MCH 27.5 08/19/2018 MCHC 31.7 08/19/2018 MPV 7.1 08/19/2018 RDW 16.0 08/19/2018 General Chemistry: Lab Results Component Value Date NA 132 08/19/2018 K 3.8 08/19/2018 CL 103 08/19/2018 CO2 23 08/19/2018 GAP 6 08/19/2018 BUN 11 08/19/2018 CR 0.81 08/19/2018 GLU 108 08/19/2018 CA 8.1 08/19/2018 ALBUMIN 2.6 08/17/2018 MG 1.7 08/19/2018 TOTBILI 0.3 08/17/2018 PO4 2.2 08/19/2018 Coagulation: Lab Results Component Value Date PTT 28.6 08/15/2018 INR 2.0 08/15/2018 Anesthesia Plan ASA score: 3 Plan: general Induction method: intravenous NPO status: acceptable Informed Consent Anesthetic plan and risks discussed with patient. Use of blood products discussed with patient Blood Consent: consented Plan discussed with: BOOM. in this encounter Miscellaneous Notes * Addendum Note - Ian Mcdermott MD - 08/23/2018 1:10 PM CDT Formatting of this note may be different from the original. Addendum created 08/23/18 1310 by Ian Mcdermott MD Anesthesia Intra Meds edited in this encounter Plan of Treatment Not on fileas of this encounter Visit Diagnoses Not on filein this encounter Administered Medications Medication Order MAR Action Action Date Dose Rate Site dexamethasone (DECADRON) injection Given 08/23/2018 4 mg Intravenous, INTRA-PROCEDURE MED, 08:50 CDT Starting Sun08/23/18 at 0850, Until Sun08/23/18 at 1045, Nausea/Vomiting Injectable, Anesthesia Intra-op esmolol (BREVIBLOC) injection Given 08/23/2018 20 mg INTRA-PROCEDURE MED, Starting Sun 08:53 CDT 08/23/18 at 0853, Until Sun08/23/18 at 1045, Anesthesia Intra-op Given 08/23/2018 10 mg 09:43 CDT Given 08/23/2018 10 mg 10:06 CDT fentaNYL citrate PF (SUBLIMAZE) Given 08/23/2018 25 mcg injection 08:56 CDT INTRA-PROCEDURE MED, Starting Sun08/23/18 at 0835, Until Sun08/23/18 at 1045, Pain Injectable, Anesthesia Intra-op Given 08/23/2018 25 mcg 09:09 CDT Given 08/23/2018 25 mcg 10:12 CDT lactated ringers infusion Given - New 08/23/2018 1,000 mL 20 mL/hr 1,000 mL, 1,000 mL, Intravenous, at 20 Bag 07:32 CDT mL/hr, CONTINUOUS, Starting Sun08/23/18 at 0715, Until 08/24/18 at 1029, Pre-Op Given - New Bag 08/23/2018 09:28 CDT levofloxacin (LEVAQUIN) 750 mg/150 mL Given 08/23/2018 500 mg IVPB 09:01 CDT Administer over 90 Minutes, INTRA-PROCEDURE MED, Starting Sun08/23/18 at 0901, Until Sun08/23/18 at 1045, Anesthesia Intra-op lidocaine (PF) injection Given 08/23/2018 60 mg INTRA-PROCEDURE MED, Starting Sun 08:35 CDT 08/23/18 at 0835, Until Sun08/23/18 at 1045, Anesthesia Intra-op midazolam (VERSED) injection Given 08/23/2018 2 mg Intravenous, INTRA-PROCEDURE MED, 08:29 CDT Starting Sun08/23/18 at 0829, Until Sun08/23/18 at 1045, Agitation Injectable, Anxiety Injectable, Anesthesia Intra-op ondansetron (ZOFRAN) injection Given 08/23/2018 4 mg Intravenous, INTRA-PROCEDURE MED, 10:05 CDT Starting Sun08/23/18 at 1005, Until Sun08/23/18 at 1045, Nausea/Vomiting Injectable, Anesthesia Intra-op propofol (DIPRIVAN) injection Given 08/23/2018 150 mg INTRA-PROCEDURE MED, Starting Sun 08:35 CDT 08/23/18 at 0835, Until Sun08/23/18 at 1045, Anesthesia Intra-op Given 08/23/2018 50 mg 08:41 CDT succinylcholine (ANECTINE) injection Given 08/23/2018 80 mg Intravenous, INTRA-PROCEDURE MED, 08:41 CDT Starting Sun08/23/18 at 0841, Until Sun08/23/18 at 1045, Anesthesia Intra-op in this encounter
--- OUTSIDE RECORDS SUMMARY | 2018-08-30 13:29 | XMS REPORT | Encounter Summary ---
Author Author [facility] Organization [facility] Address Unknown Phone Unavailable Care Team Providers Care Gauger Chief Delivery Name Role Phone Jeny Garcia MD PCP Encounter Details Date Type Department Care Team Description 08/23/2018 Pharmacy Visit [facility] [address] [place] [address] Social History Tobacco Use Types Packs/Day Years [...]
--- OUTSIDE RECORDS SUMMARY | 2018-08-30 13:29 | XMS REPORT | Encounter Summary ---
Author Author [facility] Organization [facility] Address Unknown Phone Unavailable Care Team Providers Care Calf Skinner Name Role Phone Jeny Garcia MD PCP Reason for Visit * Auth/Cert Status Reason Specialty Diagnoses / Referred By Referred To Procedures Contact Contact Diagnoses Bilateral ureteral obstruction Bilateral ureteral obstruction [N13.5] P rocedures [place] CYSTO BLADDER W/URETERAL CATHETERIZATION [place] CYSTO BLADDER W/URETERAL CATHETERIZATION CYSTOURETHROSCOP Y WITH URETERAL CATHETERIZATION WITH/ WITHOUT IRRIGATION/ INSTILLATION/ URETEROPYELOGRAP HY Encounter Details Date Type Department Care Team Description 08/23/2018 [place] [address] Inocente Krause MD Aspiration into airway - Encounter [address] 08/24/2018 [place] [address] [address] [place] [address] [phone] Social History Tobacco Use Types Packs/Day Years [...] call and ask for the urology resident surgical nurse practitioner. In case of an emergency, please report [...] Levaquin course Prophylaxis Review: - DVT: SCD's, INTERACTIVE GRAPHIC DESIGNER Eliquis - GI: No - Catheter: Yes - Abx: Yes Frank Cartwright MD Urology PGY-1 Please page urology surgical nurse practitioner with questions SUBJECTIVE: No acute events overnight. [...] 08/23/18700 - 08/24/1869908/24/18700 - 08/25/18 07 Shift [id number] 24 Hour Total 6400-8302 3132-0629 24 Hour Total I N T A [...] (10) 925 (12.3) 1675 (22.3) NET 1190 -100 396 Weight (kg) 75 75 75 75 75 [...] plan of care with staff surgeon, Dr. Krause, who directed plan of care __ HPI: [...] output data in the 24 hours ending 08/23/18 0814 Physical Exam: GEN: well nourished, in no [...] Krause MD - 08/23/2018 11:40 AM CDT [address] [address] PATIENT NAME: ARACELIS ESPINAL MR#/PT#: [id number] Page 2 OPERATIVE REPORT DATE OF OPERATION: 08/23/2018 SURGEON: Inocente Krause MD INVENTORY CONTROL COORDINATOR(S): Fany Andrea MD. PREOPERATIVE DIAGNOSIS: 1. Bilateral [...] then set up to follow up at [facility]. She presented to clinic with significant lower [...] and draped in usual sterile fashion. A 21-Iranian cystoscope was inserted into the urethra in [...] we took a several swipes from the account executive sales representative sections around the bladder. Remainder of the bladder was very inflamed and friable. After resecting, we were able to identify the ureteral orifices. We performed antegrade nephrostogram bilaterally, which showed on the right side, mild to moderate hydronephrosis with string like tapering at the UPJ with minimal passage of contrast past the UPJ. On the left it showed lzmo-ju-tiyzslan hydronephrosis with again tapering at the UPJ [...] left the bladder full. We inserted a 20-Iranian Lopes catheter. The drapes were removed. The [...] without overlapping cases Inocente Krause MD / MEDQ /[id number] cc: - Inocente Krause MD * Procedures (Immed Post or Bedside) - Fany Andrea MD - 08/23/2018 10:37 AM CDT Formatting of this note may be different from the original. Brief Operative Note Name: Aracelis Espinal is a 67 y.o. female : 1950 MRN# : [id number] DATE OF OPERATION: 08/23/2018 Date: 08/23/2018 Preoperative [...] PACU - stable Fany Andrea MD Pager [phone] Associated attestation - Inocente Krause MD - [...] RDW 16.4 (H) 11 - 15 % MAIN LAB Platelet Count 444 (H) 150 - 400 K/UL [facility] MPV 6.8 (L) 7 - 11 FL [facility] Performing Organization Address City/[facility]/Zipcode Phone Number [facility] [address] [place] [address] * BASIC METABOLIC PANEL (08/24/2018 3:56 AM) Sodium 135 (L) 137 - 147 MMOL/L MAIN LAB Potassium 3.3 (L) 3.5 - 5.1 MMOL/L [facility] MAIN LAB Chloride 100 98 - 110 MMOL/L [facility]IN [facility] CO2 23 21 - 30 MMOL/L [facility] Anion Gap 12 3 - 12 [facility] Glucose 129 (H) 70 - 100 MG/DL MAIN LAB Blood Urea Nitrogen 14 7 - 25 MG/DL MAIN LAB Creatinine 1.33 (H) 0.4 - 1.00 MG/DL [facility] MAIN LAB Calcium 8.5 8.5 - 10.6 MG/DL MAIN LAB eGFR Non 40 (L) >60 mL/min MAIN LAB Comment: The eGFR is not validated for use in drug dosing adjustments.Continue to use estimated creatinine clearance per dosing reference text.Please contact the Clinical Pharmacist for questions. eGFR 48 (L) >60 mL/min [facility] Comment: The eGFR is not validated for use in drug dosing adjustments.Continue to use estimated creatinine clearance per dosing reference text.Please contact the Clinical Pharmacist for questions. Performing Organization Address City/[facility] Phone Number [facility] [address] [place] [address] * SURGICAL PATHOLOGY (08/23/2018 10:44 AM) PATHOLOGY REPORT [facility] [email or web address] Department of Pathology and Laboratory Medicine [address] [place] [address] Surgical Pathology Office:[phone] :[phone] SURGICAL PATHOLOGY REPORT NAME: ARACELIS ESPINAL SURG PATH #: [id number] MR #: [id number] SPECIMEN CLASS: SR BILLING #: [id number] ALT ID #:LOCATION: HC8 DATE OF PROCEDURE: [...] very high proliferative activity, consistent with [facility] 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 Preet Holley MD ############################## ############################## ############ Final Diagnosis: A. Bladder, "bladder mass", biopsy: Plasmacytoid urinary bladder carcinoma. SEE COMMENT Comment: Immunohistochemical stains supporting the diagnosis: Positive for pancytokeratin and cytokeratin CAM 5.2. Focally positive for CD138. [place] E-cadherin on tumor cells. These findings support the above diagnosis. Pursuant to the Ground Source Heat Pump Technician Program at the [facility] Pathology Department, selected slides from this [...] 1.3 x 0.4 cm Cassettes A1-A2- Entire specimen.(wl) wl/08/23/2018 If immunohistochemical stains and/or in situ hybridization are cited in this report, the performance characteristics were determined by the Department of Pathology and Laboratory Medicine of the [facility] ([employer]) in compliance with CLIA'88 [...] of Pathology and Laboratory Medicine of the [facility].It has not been cleared or approved by [...] TWICE DAILY, First dose on 13:13 CDT 08/23/18 at 1230, Until Discontinued, Hold for loose stools Given 08/23/2018 100 mg 21:02 CDT Given 08/24/2018 100 mg 08:07 CDT FENTANYL CITRATE (PF) 50 MCG/ML IJ SOLN (Cabinet Override) NOW, 1 dose, Sun08/23/18 at 1100, Created by cabinet override fentaNYL citrate PF (SUBLIMAZE) Given 08/23/2018 25 [...] 1 dose, Sun08/23/18 at 1130, PACU (only) lactated ringers infusion Given - New 08/23/2018 1,000 mL 20 mL/hr 1,000 mL, 1,000 mL, Intravenous, at 20 Bag 07:32 CDT mL/hr, CONTINUOUS, Starting Sun08/23/18 at 0715, Until 08/24/18 at 1029, Pre-Op Given - New Bag 08/23/2018 09:28 CDT LACTATED RINGERS IV SOLP (Cabinet Override) NOW, 1 dose, Sun08/23/18 at 0600, Created by [email or web address] castroide levoFLOXacin (LEVAQUIN) tablet 750 mg Given 08/24/2018 [...]
--- OUTSIDE RECORDS SUMMARY | 2018-08-30 13:31 | XMS REPORT | Encounter Summary ---
Author Author [facility] Organization [facility] Address Unknown Phone Unavailable Care Team Providers Care Chrome Worker Name Role Phone Jeny Garcia MD PCP Reason for Visit * Auth/Cert Status Reason Specialty Diagnoses / Referred By Referred To Procedures Contact Contact Diagnoses Sepsis (HCC) Septic shock (HCC) Sepsis Encounter Details Date Type Department Care Team Description 08/15/2018 [facility] - Mary Ann Kidd MD Septic shock (HCC) - Encounter Main [address] 08/19/[address] [place] [id number] [phone] [place] [address] [phone] Michael Smith MD [address] [place] [address] [phone] Maverick Mondragon MD [address] [place] [address] [phone] Social History Tobacco Use Types Packs/Day Years Used Date Former Smoker Quit: 06/03/2018 Smokeless Tobacco: Never Used Alcohol Use Drinks/Week oz/Week Comments No Sex Assigned at Date Recorded Not on file as of this encounter Last Filed Vital Signs Vital Sign Reading Time Taken Blood Pressure 108/63 08/19/2018 8:00 AM CDT Pulse 101 08/19/2018 8:00 AM CDT Temperature 36.9 C (98.4 F) 08/19/2018 8:00 AM CDT Respiratory Rate - - Oxygen Saturation 94% 08/19/2018 8:00 AM CDT Inhaled Oxygen - - Concentration Weight 77.4 kg (170 lb 10.2 oz) 08/17/2018 6:00 AM CDT Height 162.6 cm (5' 4") 08/15/2018 4:30 AM CDT Body Mass Index 29.29 08/17/2018 6:00 AM CDT in this encounter Functional Status [...] impairment: No 07/30/2018 as of this encounter Discharge Summaries * Alberto, February - 08/19/2018 4:21 PM CDT Formatting of this note may be different from the original. Physician Discharge Summary Name: Aracelis Espinal Date Of : 1950 Age: 67 years Admit date: 08/15/2018 Discharge date: 08/19/2018 Attending Physician: MAVERICK SANCHEZ Service: Med ICU 1945 Physician Summary completed by: Xiomara Pat APRN Reason for hospitalization: non-draining left nephrostomy tube, UTI Significant PMH: Past Medical History: Diagnosis Date Anemia Anxiety disorder Cataract Colon polyps Depression Dyslipidemia Thyroid disorder Ulcer of the stomach and intestine Allergies: Codeine Admission Physical Exam notable for: Constitutional: 67 y.o. female awake and oriented x4, patient in moderate distress, appearing tired Head: Normocephalic, atraumatic Eyes: Extra-occular muscles intact, perrla, clear sclera ENT: Nose midline without drainage, neck supple without tracheal deviation, oral mucous membrane dry Cardiovascular: Regular rate and rhythm, normal S1 and S2, no murmur /rub/gallop Pulmonary: Clear to auscultation bilaterally, no wheezes or rales Abdominal: Soft, non-tender, non-distended (baseline habitus), bowel sounds 4+, b/l nephrostomy with dressing intact Dermatologic: No rashes or bruises, good turgor, poor turgor Neurological: Cranial nerves II-XII intact, no gross focal neurological deficits Musculoskeletal: Moves all extremities well Extremities: 1-2 pitting edema, pulses present b/l Psych: Appropriate mood and affect Admission Lab/Radiology studies notable for: Hgb 9, WBC 15.8, K 2.5, Na 134, Cr 2.06, mag 1.1, BNP 129 CXR (08/17): Development of a small to moderate left pneumothorax. CXR (08/19): 1. Removal of left-sided chest tube without pneumothorax. 2. Small pleural effusions with basal atelectasis. IR (08/15): 1. Malpositioned left percutaneous nephrostomy tube, retracted into the perinephric space. Therefore, a new 8.5 Greek nephrostomy tube was placed as described above. 2. Uneventful exchange of 8.5 Greek right sided percutaneous nephrostomy tube. IR (08/16): Successful placement of a left-sided 8-Greek pigtail drain for pneumothorax. Brief Hospital Course: 67 y/o Fw/PMH hypothyroidism, anxiety/depression, HLD, GERD, R popliteal DVT (07/01/18), b/l uteretral obstruction s/p b/l percutaneous nephrostomy tubes. Presented to [facility] 08/14 in septic shock &non-draining L nephrostomy tube. Started on NE &txd to [facility] on [facility]15 as follows w/ [facility]. Did not require norepi during [facility]. Urine cxat OSH +enterobacter &E faecalis; urine cx here at [facility] +E faecalis &klebsiella. Blood cx from OSH 1 set growing GNR (no speciation yet) -->on levaquin to complete 14 days. Urology followed &rec IR replacement of both PCN (done on 08/15). MEE improved. Had L subclavian CVC placed by OSH complicated by apical pneumothorax noted on admit CXR - underwent chest tube placement 08/16 in IR, CT removed 08/18. Tolerating room air. Stable to discharge home today. Has urology follow up on Sunday. Agree with discharge summary. Condition at Discharge: Stable Discharge Diagnoses: Hospital Problems Active Problems Major depressive disorder with single episode, in remission (HCC) Gastroesophageal reflux disease without esophagitis Hypothyroidism due to acquired atrophy of thyroid Vitamin D deficiency Acute deep vein thrombosis (DVT) of distal end of right lower extremity (HCC) Obesity (BMI 30-39.9) Bilateral ureteral obstruction Resolved Problems * (Principal)RESOLVED: Septic shock (HCC) RESOLVED: Anxiety RESOLVED: Pneumothorax, iatrogenic Surgical Procedures: None Significant Diagnostic Studies and Procedures: Bilateral nephrostomy tubes replacement Consults: Urology Patient Disposition: Home with Home Health Care Patient instructions/medications: Activity as Tolerated It is important to [...] you have any of the following symptoms: temperature higher than 100 degrees F, uncontrolled pain, persistent nausea and/ or vomiting, difficulty breathing, chest pain, severe abdominal pain, headache, unable to urinate, unable to have bowel movement or drainage with a foul odor Questions About Your Stay For questions or concerns regarding your hospital stay. Call [phone] Discharging attending physician: MAVERICK SANCHEZ [[id number]] Cardiac Diet Limiting unhealthy fats and cholesterol is the most important step you can take in reducing your risk for cardiovascular disease. Unhealthy fats include saturated and trans fats. Monitor your sodium and cholesterol intake. Restrict your sodium to 2g (grams) or 2000mg (milligrams) daily, and your cholesterol to 200mg daily. If you have questions regarding your diet at home, you may contact a dietitian at . Other Drain Care Please continue to flush your bilateral nephrostomy tubes twice daily with 10ml normal saline Current Discharge Medication List START taking these medications Details levoFLOXacin (LEVAQUIN) 750 mg tablet Take one tablet by mouth every 24 hours for 10 days. Qty: 10 tablet, Refills: 0 PRESCRIPTION TYPE: Normal CONTINUE these medications which have been CHANGED or REFILLED Details pantoprazole DR (PROTONIX) 40 mg tablet Take one tablet by mouth daily. PRESCRIPTION TYPE: No Print CONTINUE these medications which have NOT CHANGED Details acetaminophen (TYLENOL) 325 mg tablet Take 1 tablet by mouth every 6 hours as needed (headache). PRESCRIPTION TYPE: Historical Med apixaban (ELIQUIS) 5 mg tablet Take one tablet by mouth twice daily. Qty: 60 tablet, Refills: 3 PRESCRIPTION TYPE: Normal calcium carbonate (TUMS) 500 mg (200 mg elemental calcium) chewable tablet Chew 1 tablet by mouth twice daily as needed. PRESCRIPTION TYPE: Historical Med carboxymethylcellulose (REFRESH PLUS) [...] mouth every . PRESCRIPTION TYPE: Historical Med furosemide (LASIX) 40 mg tablet Take one tablet by mouth every morning. Qty: 90 tablet, Refills: 3 PRESCRIPTION TYPE: Normal HYDROcodone/acetaminophen(+) (NORCO) 10/325 mg tablet Take 1 tablet by mouth every 6 hours as needed PRESCRIPTION TYPE: Historical Med levothyroxine (SYNTHROID) 50 mcg tablet Take 50 mcg by mouth daily 30 minutes before breakfast. PRESCRIPTION TYPE: Historical Med nicotine (NICODERM CQ STEP 1) 21 mg/day patch Apply 1 patch to top of skin as directed every 24 hours. PRESCRIPTION TYPE: Historical Med ondansetron (ZOFRAN ODT) 4 mg rapid dissolve tablet Dissolve 4 mg by mouth every 8 hours as needed for Nausea or Vomiting. Place on tongue to disolve. PRESCRIPTION TYPE: Historical Med The following medications were removed from your list. This list includes medications discontinued this stay and those removed from your prior med list in our system torsemide(+) (DEMADEX) 20 mg tablet Pending items needing follow up: The speciation & sensitivity of the gram negative rods from [facility] Signed: Xiomara Pat APRN 08/19/2018 cc: Primary Care Physician: Jeny Garcia in this encounter Discharge Instructions * Discharge Instr - Case Management - Agnes Bryant RN - 08/15/2018 9:58 AM CDT [facility] nurse will call you tomorrow to arrange a time for the first visit. Please be aware nurse is coming from other patient's home and will provide a time frame for visit and not a specific time. [facility] [phone] in this encounter Medications at Time of [...] mouth 08/19/2018 (PROTONIX) 40 mg tablet daily. levoFLOXacin (LEVAQUIN) Take one tablet by mouth 10 tablet 0 201708/24/2018 750 mg tabletIndications: every 24 hours for 10 Oral Option for days. Gram-Negative Bacteremia as of this encounter Progress Notes * Sherie Real RN - 08/19/2018 3:52 PM CDT Pt discharged to home with sister via wheelchair with RN. Sent with all belongings. DC instructions reviewed and all questions answered. PIV removed. * Maverick Sanchez MD - 08/19/2018 2:10 PM CDT Formatting of this note may be different from the original. Pulmonary / Critical Care Progress Note Aracelis Morrow Teddy Today's Date: 08/19/2018 Admission Date: 08/15/2018 LOS: 4 days Assessment/Plan: Principal Problem: Septic shock (HCC) Active Problems: Anxiety Major depressive disorder with single episode, in remission (HCC) Gastroesophageal reflux disease without esophagitis Hypothyroidism due to acquired atrophy of thyroid Vitamin D deficiency Acute deep vein thrombosis (DVT) of distal end of right lower extremity (HCC) Obesity (BMI 30-39.9) Bilateral ureteral obstruction Pneumothorax, iatrogenic Hospital Course 67 y/o Fw/PMH hypothyroidism, anxiety/depression, HLD, GERD, R popliteal DVT (07/01/18), b/l uteretral obstruction s/p b/l percutaneous nephrostomy tubes. Presented to [facility] 08/14 in septic shock &non-draining L nephrostomy tube. Started on NE &txd to on 08/15 as follows w/ [facility]. Did not required NE since presentation to . Urine cxat OSH +enterobacter & E faecalis; urine cx here at +E faecalis &klebsiella ->on levaquin. Urology following &rec IR replacement of both PCN (done on 08/15). MEE now improving. Had L subclavian CVC placed by OSH c/bapical pneumothorax noted on admit CXR - underwent chest tube placement 08/16 in IR, CT removed 08/18. Tolerating room air. Stable to discharge home today. NEURO Hx Anxiety, Depression - HoldingPTA clonazepam 1mg daily PRN, norco 10 ->can reorder per pt request PULM Pneumothorax (improved) - 2/2 Lsubclavian CVC placed at OSH - CXR 08/15 - small-mod L pneumothorax - CXR 08/16- stable L pneumothorax - Currently tolerating RA - Underwent pigtail placement in IR 08/16 - CT removed 08/18 - CXR today w/o pneumothorax Tobacco Use - Continue nicotine patch CV Shock (resolved) - On presentation to OSH - Reportedly received 4L IVF then started on norepi -did not require on admit to - Echo 07/02/2018 - LVEF 60%, normal diastolic function, mild LVH, normal RV & valves - EKG - w/o ST changes; trop neg x2 - Received additional 2L IVF on 08/15 - This AM HR 80s&SBP 100s GI Hx GERD - Continue [employer] protonix Diarrhea - Cdiff - negative - Last BM 08/19 RENAL MEE on CKD (improved) - Baseline Cr ~1.5 - MEE d/t L PCN malfunction - Briefly required HD in May - Renal scan ([facility]) 06/17 - 70+ function of L kidney & 20 or less function of R kidney - FeUrea 08/15 - 30; equivocal - Cr 0.81 - UOP: 1.5Lper neph tubes - I/O: -1.1L/24h; -1.3L/admit Plan - Resume [employer] lasix 40mg qd w/ mild LE edema - holdtorsemide 20mg qd ->per pt started d/t LE edema B/l Uteretral Obstruction - Has b/l percutaneous nephrostomy tubes. Per outpatient notes it's not clear what is causing her ureteral obstructions. Recently had b/l ureteral stents s/p removal. CT showed mild fibrosis low in pelvis posterior to the bladder & perirectal location. Per clinic note 07/30 plan is for endoscopic evaluation of ureters. Ptscheduled for cystoscopy &bilateral retrograde pyelograms & antegrade nephrostogram on 08/23/18 w/Dr. Moseley for further evaluation of ureteral stricture location &length bilaterally - L perc tube - placed at OSH on 06/19 - R perc tube - placed by [facility] on 07/02 - On admit hadb/l PCN but L wasnot draining - Urology rec IR replacement of both tubes (done 08/15) - Both draining clear yellow urine - Urology signed off - Anesthesia to do pre-op assessment today before discharge ENDO Hx Hypothyroidism - TSH 1.2 - Continue [employer] synthroid 50mcg daily ID Septic Shock (resolving) UTI - WBC 8; afebrile - CXR 08/15 - no infiltrate - Blood Cx([facility]) 08/14 - 1 set of GNR, 2nd set negative - Blood Cx10/4 at [facility] - ngtd - Urine Cx([facility]) 08/14 - >100k enterobacter (s to gent, rocephin, bactrim, levaquin, cipro, meropenem; r to ampicillin, cefazolin, augmentin) & >100k E faecalis - UA (R PCN was drawn at 0750) 08/15 - 3+ leuks, packed WBC, few bacteria - Urine Cx(b/lPCN) 08/15- >100K E faecalis, <100k klebsiella - Cdiff 08/15 - negative Plan - ABx narrowed to levaquin to cover E faecalis, klebsiella &enterobacter, plan for 10d levaquin (through 08/26) - Note different resistance patterns to enterobacter at the OSH from urine clean catch & urine nephrostomy. Urine clean catch was resistant to levaquin but Urine from nephrostomy tube sensitive to levaquin. Given her significant improvement will continue levaquin to complete 14d through 08/30. HEME Provoked DVT - US06/22 - no DVT - US07/01 + R popliteal DVT - Had subcapsular hematoma w/ L PCN placement on 06/19 - Plan was for 3 monthsof AC w/ eliquis at lower dose 5mg BIDd/t bleeding risk. DVT felt to be provoked 2/2 prolonged hospital stay in [place] - Continue [employer] eliquis 5mg BID. Spoke w/ urology 08/19 - okay to continue eliquis w/ upcoming procedure & it does not need to be stopped before. FEN - No current IVF - Replace lytes PRN - Cardiac diet PPX: Lines:PIV Drains/Tubes:B/l nephrostomy tubes DVT: Eliquis GI:Protonix PT/OT: Yes Code Status: Full Code Dispo: Stable to dc home Pt seen &discussed w/ Dr. Sarahi Pat [facility] Pulmonary Critical Care Pager [phone] M2 pager [phone] ATTESTATION I personally interviewed and examined the patient. I have reviewed the history , physical, impression and plan outlined by the Nurse Practitioner. The patient presents with Gram negative urosepsis secondary to malpositioned percutaneous nephrostomy tubes, all resulting in septic shock and MEE on CKD. Tubes replaced in IR. Pt also with an iatrogenic left-sided pneumothorax from a subclavian line placement at outside hospital. On examination pt is sitting in chair in NAD. Reports feeling great and ready to go home. Lungs clear, Lung up on CXR this morning (s/p removal of chest tube yesterday). Heart regular, abdomen soft, extremities are without cl/cy and edema. Neurologically pt is intact. My impression is resolved sepsis and MEE on CKD with antibiotic treatment and replacement of perc neph tubes. My plan is to continue Levaquin. We will ask anesthesia to provide pre-op evaluation for urologic procedure on Sunday so pt does not have to drive back up mid-week. Once pre-op eval completed pt will be stable for discharge home. Pt does not need to hold Eliquis for upcoming procedure per urology. Staff name: Maverick Sanchez MD Date: 08/19/2018 Subjective: Pt doing well this morning, feels ready to go home. ROS: no SOB/CP/abdominal pain, tolerating a diet & ambulating well w/ a walker Objective: Medications: Scheduled Meds: apixaban (ELIQUIS) tablet 5 mg 5 mg Oral BID docusate (COLACE) capsule 100 mg 100 mg Oral BID ergocalciferol (VITAMIN D-2) capsule 50,000 Units 50,000 Units Oral furosemide (LASIX) tablet 40 mg 40 mg Oral QDAY levoFLOXacin (LEVAQUIN) tablet 750 mg 750 mg Oral Q24H* levothyroxine (SYNTHROID) tablet 50 mcg 50 mcg Oral QDAY 30 min before breakfast lidocaine (LIDODERM) 5 % topical patch 1 patch 1 patch Topical QDAY(20) nicotine (NICODERM CQ STEP 1) 21 mg/day patch 1 patch 1 patch Transdermal Q24H* nystatin (NYSTOP) topical powder Topical BID pantoprazole DR (PROTONIX) tablet 40 mg 40 mg Oral BID Continuous Infusions: PRN and Respiratory Meds:acetaminophen Q6H PRN, carboxymethylcellulose PRN, magnesium sulfate PRN AND Magnesium PRN AND Notify Physician Ongoing, potassium chloride SR PRN OR potassium chloride PRN Vital Signs: Last Filed Vital Signs: 24 Hour Range BP: 108/63 (08/19 800) Temp: 36.9 C (98.4 F) (08/19 800) Pulse: 101 (08/19 800) Respirations: 18 PER MINUTE (08/19 800) SpO2: 94 % (08/19 800) O2 Delivery: None (Room Air) (08/19 800) SpO2 Pulse: 101 (08/19 800) BP: (107-114)/(63-74) Temp: [36.7 C (98.1 F)-37.1 C (98.8 F)] Pulse: [89-101] Respirations: [16 PER MINUTE-18 PER MINUTE] SpO2: [94 %-98 %] O2 Delivery: None (Room Air) Intensity Pain Scale (Self Report): 5 (08/18/181999) Vitals: 08/15/18 0430 08/17/18 0600 Weight: 76 kg (167 lb 8.8 oz) 77.4 kg (170 lb 10.2 oz) Intake/Output Summary: (Last 24 hours) Intake/Output Summary (Last 24 hours) at 08/19/18 0854 Last data filed at 08/19/18 0800 Gross per 24 hour Intake 680 ml Output 1470 ml Net -790 ml Physical Exam: Physical Exam: General Appearance: No apparent distress, sitting upright in a chair Skin: no rashes, stage 1 pressure injury per motor express clerk to R heel & buttocks (not assessed) HEENT:PERRL, MMM Chest and Lungs:Clear breath sounds anteriorly, respirations non labored Cardiovascular:RRR Abdomen:soft, nondistended, +BS Genitourinary: b/l neph tubes w/ yellow urine Extremities:warm,1+ edema Neurologic:alert &oriented x3, follows commands, able to move all extremities, non-focal LABS: Recent Labs 08/16/18 1405 08/17/18 0350 08/18/1822408/19/18 0310 NA 136* 133* 131* 132* K 4.1 3.9 4.0 3.8 CL 104 105 102 103 CO2 22 22 22 23 GAP 10 6 7 6 BUN 24 19 13 11 CR 1.10* 0.94 0.78 0.81 GLU 101* 102* 105* 108* CA 8.3* 8.3* 8.2* 8.1* ALBUMIN -- 2.6* -- -- MG -- 2.1 1.8 1.7 PO4 -- 1.7* 1.5* 2.2 Recent Labs 08/17/18 0350 08/18/18 02208/19/18 0310 WBC 6.8 7.5 8.0 HGB 9.3* 9.9* 9.0* HCT 29.0* 30.1* 28.5* PLTCT 301 374 387 AST 15 -- -- ALT 8 -- -- ALKPHOS 88 -- -- Estimated Creatinine Clearance: 69.7 mL/min (based on SCr of 0.81 mg/dL). Vitals: 08/15/18 0430 08/17/18 0600 Weight: 76 kg (167 lb 8.8 oz) 77.4 kg (170 lb 10.2 oz) No results for input(s): PHART, PO2ART in the last 72 hours. Invalid input(s): PC02A Radiology and Other Diagnostic Procedures Review: Reviewed pertinent studies. * Hazel Sanchez, PT - 08/19/2018 9:57 AM CDT PHYSICAL THERAPY PROGRESS NOTE MOBILITY: Mobility Progressive Mobility Level: Walk in hallway Distance Walked (feet): 80 ft Level of Assistance: Stand by assistance Assistive Device: Walker Time Tolerated: 11-30 minutes Activity Limited By: (Patient with no complaints after ambulation) SUBJECTIVE: Subjective Significant hospital events: Patient with history of worsening renal function requiring bilateral nephrostomy tubes, admitted from outside [facility] for MEE, septic shock, found to have pneumothorax requiring chest tube. Chest tube removed 08/18. Mental / Cognitive Status: Alert;Oriented;Cooperative Pain: Patient has no complaint of pain Pain Interventions: Patient agrees to participate in therapy;Treatment altered to patient's pain tolerance Ambulation Assist: Independent Mobility in Community without Device Patient Owned Equipment: None Home Situation: Lives Alone Type of Home: House Entry Stairs: 3-5 Stairs In-Home Stairs: Able to Live on One Level BED MOBILITY/TRANSFERS: Bed Mobility/Transfers Comments: Patient up in chair at start of session. Transfer Type: Sit to/from Stand Transfer: Assistance Level: To/From;Bed Side Chair;Modified Independent Transfer: Assistive Device: Roller Walker End Of Activity Status: Up in Chair;Nursing Notified;Instructed Patient to Request Assist with Mobility;Instructed Patient to Use Call Light GAIT: Gait Gait Distance: 80 feet Gait: Assistance Level: Standby Assist Gait: Assistive Device: Roller Walker Gait: Descriptors: Pace: Slow;Normal step length;No balance loss Comments: Patient declines trialing stairs reporting she will not have difficulty getting into/out of home. Activity Limited By: Patient Choice EDUCATION: Education Persons Educated: Patient Patient Barriers To Learning: None Noted Teaching Methods: Verbal Instruction Patient Response: Verbalized Understanding Topics: Plan/Goals of PT Interventions;Use of Assistive Device/Orthosis; Mobility Progression;Safety Awareness;Up with Assist Only;Importance of Increasing Activity;Ambulate With Nursing ASSESSMENT/PROGRESS: Assessment/Progress Comments: Patient with improved activity tolerance this date. Patient able to complete mobility with stand by assist. Patient reports family able to assist as needed once home. AM-PAC 6 Clicks Basic Mobility Inpatient Turning [...] with a railing: A Little Raw Score: 23 Standardized (T-scale) Score: 50.88 Basic Mobility CMS 0-100%: 16.55 CMS G Code Modifier for Basic Mobility: CI GOALS: Goals Goal Formulation: With Patient Time For Goal Achievement: 3 days, To, 5 days Pt Will Go Supine To/From Sit: Independently Pt Will Transfer Sit to Stand: Independently Pt Will Ambulate: Greater than 200 Feet, w/ Walker, Independently Pt Will Go Up / Down Stairs: 3-5 Stairs, Independently PLAN: Plan Treatment Interventions: Mobility Training;Balance Activities;Endurance Training Plan Frequency: 3-5 Days per Week RECOMMENDATIONS: PT Discharge Recommendations PT Discharge Recommendations: Home with Assistance;Home Health Setting Equipment Recommendations: Roller Walker Patient requires the use of a walker with wheels to complete ADLs in the home including meal preparation, ambulation the bathroom for toileting, bathing and grooming, and safe home mobility. Patient is unable to complete these ADLs with a cane or crutch and can safely use the walker. Therapist: Hazel Sanchez PT, DPT Date: 08/19/2018 * Sherie Real RN - 08/19/2018 7:20 AM CDT 0720: Bedside safety check complete with ELADIO Bahena. Pt able to verbalize needs; none currently at this time. Oriented to surroundings, fall bundle in place, call light within reach. 0800 assessments documented and completed; see doc flowsheets. No complaints of pain. Mobilized from bed to commode, to sink to chair with stand by assistance with walker. Chair alarm on. 939: Received call from [facility] lab stating that one blood culture bottle grew gram negative rods. Passed along to primary team. Lab to fax over results and will relay further ID and sensitivities. 1020: Pt requesting ability to send current admission records to [facility] kidney doctor. Medical records called to obtain authorization paperwork. Also wanting to see if anesthesia has availability today to do pre-op screening while pt is inpatient today. Anesthesia paged. 1030: DEBORAH Holguin updated this RN that pt will be seen by anesthesia today prior to discharge. Pt to D/C around mid afternoon. Pt updated on POC and verbalized understanding * Becca Pride - 08/19/2018 5:59 AM CDT Formatting of this note may be different from the original. Pulmonary / Critical Care Progress Note Aracelis Espinal Today's Date: 08/19/2018 Admission Date: 08/15/2018 LOS: 4 days Principal Problem: Septic shock (HCC) Active Problems: Anxiety Major depressive disorder with single episode, in remission (HCC) Gastroesophageal reflux disease without esophagitis Hypothyroidism due to acquired atrophy of thyroid Vitamin D deficiency Acute deep vein thrombosis (DVT) of distal end of right lower extremity (HCC) Obesity (BMI 30-39.9) Bilateral ureteral obstruction Pneumothorax, iatrogenic Brief Hospital Course: Aracelis Cobb a 67 y.o.femalewith a PMH of: hypothyroidism, anxiety/ depression, HLD, GERD, R popliteal DVT (07/01/18), b/l uteretral obstruction s/p b/l percutaneous nephrostomy tubes. Renal complications started 06/03 when she presented with fatigue, N/V, decreased UOP at OSH. B/l hydronephrosis found, b/ l stent placement with HD. Due to worsening renal function, L nephrostomy tube placed 06/19 with 20% function of R kidney. Pt d/c and then presented at on with SOA, increased b/l LE edema. Right nephrostomy tube placed during this admission and was d/c 07/08. She presented to [facility] on 08/14 in septic shock &non-draining L nephrostomy tube, suspecting urinary source. She was given fluids and started on NE and then tx'd to [facility] on [facility]15 as follows w/ [facility]. Once pt arrived, NE was stopped and pt given 2L fluids with NICOM showing responsiveness. Has been hemodynamically stable since.UC at OSH +enterobacter merrem started. Urology consulted and b/l nephrostomy change by IR. MEE improving.L subclavian CVC placed by OSH and apical pneumothorax noted on admit CXR. Pigtail CT placed by IR 08/16. 08/17 [facility] UC + e. faecalis and klebsiella showing sensitivity to levafloxacin. Merrem d/c due to enterobactor sensitive to levafloxacin from OSH. Pigtail CT placed on WS and [employer] WORK[employer] eliquis restarted. Pt downgraded to floor status. Today, pt continues to be stable overnight with no acute issues. Chest tube removed 08/18 with no evidence of pneumothorax on CXR this AM. Anesthesia called for pre- operative assessment for 08/[address] Moseley prior to discharging home. Assessment/Plan: NEURO: hx Anxiety, Depression - hold [employer] WORK[employer]: clonazepam 1mg qd prn, norco 10/325 CV: Shock (resolved) - On presentation to OSH and reportedly received 4L IVF with NE started [employer]. No pressor needed once admitted to [facility]. Received 2L IVF w/ NiCom on 08/15 & was still responsive. EKG 08/15 w/o ST changes with trop neg x2. - Echo 07/02/2018 - LVEF 60%, normal diastolic function, mild LVH, normal RV & valves - HR 80s-100s&SBP 100s-110s PULM: Pneumothorax (resolved) - L subclavian CVC placed at OSH - CXR 08/15: small-mod L pneumothorax - CXR 08/16: stable L pneumothorax - Pigtail CT by IR 08/16 - CXR 08/17: Decreased conspicuity of left apical pneumothorax with left chest tube in place. With -20 suction. - Placed on water seal 08/17 - Chest tube removed 08/18 - CXR 08/18: No evidence of pneumothorax. Plan - CXR in AM: No pneumothorax and small pleural effusions with basal atelectasis. 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 81 this AM - IO: 0: Net -1.1L - UOP in 24 hours: 1.4L Plan - Continue [employer] lasix 40mg qd - Hold [employer] torsemide 20mg qd Electrolyte Derrangement - K 3.8, Mg 1.7 - Replaced this AM by protocol - BMP daily b/l Uteretral Obstruction - Has b/l percutaneous nephrostomy tubes - Saw Dr. Moseley w/ urology on 07/30 --> planning for cystoscopy w/ pyelograms - L perc tube - placed at OSH on 06/19 - R perc tube - placed by [facility] IR on 07/02 - On admit has b/l PCN but L wasnot draining - Urology following --> recc IR replacement of both tubes; considering cysto - IR replaced R PCN &placed a new L PCN 08/15 - Both draining clear yellow urine this AM Plan - Continue flushing b/l drains Q12 hours with 10mL NS ENDO: hx Hypothyroidism - TSH 1.2 Plan - Continue [employer]: Synthroid 50mcg qd ID: Septic Shock (resolved) UTI - WBC 8.0; afebrile - No prior resistant organisms - CXR 08/15:no infiltrate - Blood Cx (OSH) 08/14:gram negative rods x1 set --> sensitivities pending 08/19 ; needs follow up - Urine Cx nephrostomy and clean catch (OSH) 08/14:>100k enterobacter and > 100k enterococcus faecalis --> Both urine cx listed above (nephrostomy and clean catch) resulting same bacterium but displaying different sensitivities. Clean catch Enterobacter resistant to rocephin, levafloxacin, and ciprofloxacin while nephrostomy showing sensitivity to these. Based on [facility] nephrostomy urine cx below feel comfortable continuing levofloxacin as it is showing sensitivity and did not grow enterobacter. Pt clinically improved on levofloxacin. - Urine Cx (b/lPCN) 08/15: >100k E. Faecalis with sensitivities to ampicillin , daptomycin, levofloxacin, nitrofurntoin, tetracycline, and vancomycin &< 100k klebsiella with sensitivities to cefepime, ceftriaxone, ertapenem, gentamicin, levofloxacin, zosyn, tetracycline, and trimethsulfa - Blood Cx 08/15 - NG x 4d - UA (R PCN was drawn at 0750) 08/15 - 3+ leuks, packed WBC, few bacteria - Cdiff 08/15 - Neg Plan - Levaquin 750mg continued --> plan for 10 days (08/26) HEME: Provoked DVT - Us 06/22: no DVT - Us 07/01:+ R popliteal DVT - Had subcapsular hematoma w/ L PCN placement on 06/19 - Plan is for 3m of AC w/ eliquis at lower dose d/t bleeding risk Plan - Eliquis 5mg continued FEN - No IVF - Electrolytes replaced - Cardiac diet Prophylaxis Review: Lines: PIV Tubes:B/l nephrostomytubes Insulin:No Urinary Catheter:No DVT:[employer] WORK[employer] eliquis GI ppx:Protonix PT/OT: Yes Code status:Full Code Disposition:Discharge home today Becca Pride APRN student Subjective: Aracelis Espinal is a 67 y.o. female who sitting comfortably in the chair with no acute distress. ROS: Denies PRESLEY, chest pain/pressure, SOB, cough, abdominal pain, N/V/D. Objective: Medications: Scheduled Meds: apixaban (ELIQUIS) tablet 5 mg 5 mg Oral BID docusate (COLACE) capsule 100 mg 100 mg Oral BID ergocalciferol (VITAMIN D-2) capsule 50,000 Units 50,000 Units Oral furosemide (LASIX) tablet 40 mg 40 mg Oral QDAY levoFLOXacin (LEVAQUIN) tablet 750 mg 750 mg Oral Q24H* levothyroxine (SYNTHROID) tablet 50 mcg 50 mcg Oral QDAY 30 min before breakfast lidocaine (LIDODERM) 5 % topical patch 1 patch 1 patch Topical QDAY(20) nicotine (NICODERM CQ STEP 1) 21 mg/day patch 1 patch 1 patch Transdermal Q24H* nystatin (NYSTOP) topical powder Topical BID pantoprazole DR (PROTONIX) tablet 40 mg 40 mg Oral BID Continuous Infusions: PRN and Respiratory Meds:acetaminophen Q6H PRN, carboxymethylcellulose PRN, magnesium sulfate PRN AND Magnesium PRN AND Notify Physician Ongoing, potassium chloride SR PRN OR potassium chloride PRN Vital Signs: Last Filed Vital Signs: 24 Hour Range BP: 114/74 (08/19 300) Temp: 36.8 C (98.3 F) (08/19 300) Pulse: 89 (08/19 300) Respirations: 16 PER MINUTE (08/19 300) SpO2: 97 % (08/19 300) O2 Delivery: None (Room Air) (08/19 300) SpO2 Pulse: 89 (08/19 300) BP: (107-114)/(63-74) Temp: [36.7 C (98.1 F)-37.1 C (98.8 F)] Pulse: [86-99] Respirations: [16 PER MINUTE-22 PER MINUTE] SpO2: [96 %-98 %] O2 Delivery: None (Room Air) Intensity Pain Scale (Self Report): 5 (08/18/181999) Vitals: 08/15/18 0430 08/17/18 0600 Weight: 76 kg (167 lb 8.8 oz) 77.4 kg (170 lb 10.2 oz) Intake/Output Summary: (Last 24 hours) Intake/Output Summary (Last 24 hours) at 08/19/18 0559 Last data filed at 08/19/18 0300 Gross per 24 hour Intake 20 ml Output 1495 ml Net -1475 ml Physical Exam: General: Alert, cooperative, no distress, appears stated age Lungs: Clear to auscultation bilaterally Heart: Regular rate and rhythm, S1, S2 normal Abdomen: Soft, non-tender. Bowel sounds normal Renal: Bilateral nephrostomy tubes in place. Urine yellow and clear. Extremities: Extremities normal, atraumatic, no cyanosis. +1 BLE edema Neurologic: Normal strength, sensation Laboratory: LABS: Recent Labs 08/16/18 1405 08/17/18 0350 08/18/18 0225 08/19/18 0310 NA 136* 133* 131* 132* K 4.1 3.9 4.0 3.8 CL 104 105 102 103 CO2 22 22 22 23 GAP 10 6 7 6 BUN 24 19 13 11 CR 1.10* 0.94 0.78 0.81 GLU 101* 102* 105* 108* CA 8.3* 8.3* 8.2* 8.1* ALBUMIN -- 2.6* -- -- MG -- 2.1 1.8 1.7 PO4 -- 1.7* 1.5* 2.2 Recent Labs 08/17/18 0350 08/18/185 08/19/18 0310 WBC 6.8 7.5 8.0 HGB 9.3* 9.9* 9.0* HCT 29.0* 30.1* 28.5* PLTCT 301 374 387 AST 15 -- -- ALT 8 -- -- ALKPHOS 88 -- -- Estimated Creatinine Clearance: 69.7 mL/min (based on SCr of 0.81 mg/dL). Vitals: 08/15/18 0430 08/17/18 0600 Weight: 76 kg (167 lb 8.8 oz) 77.4 kg (170 lb 10.2 oz) No results for input(s): PHART, PO2ART in the last 72 hours. Invalid input(s): PC02A Radiology and Other Diagnostic Procedures Review: Reviewed pertinent studies. * Maverick Sanchez MD - 08/18/2018 11:10 AM CDT Formatting of this note may be different from the original. Pulmonary / Critical Care Progress Note Aracelis Espinal Today's Date: 08/18/2018 Admission Date: 08/15/2018 LOS: 3 days Assessment/Plan: Principal Problem: Septic shock (HCC) Active Problems: Anxiety Major depressive disorder with single episode, in remission (HCC) Gastroesophageal reflux disease without esophagitis Hypothyroidism due to acquired atrophy of thyroid Vitamin D deficiency Acute deep vein thrombosis (DVT) of distal end of right lower extremity (HCC) Obesity (BMI 30-39.9) Bilateral ureteral obstruction Pneumothorax, iatrogenic Hospital Course 67 y/o Fw/PMH hypothyroidism, anxiety/depression, HLD, GERD, R popliteal DVT (07/01/18), b/l uteretral obstruction s/p b/l percutaneous nephrostomy tubes. Presented to [facility] 08/14 in septic shock &non-draining L nephrostomy tube. Started on NE &txd to on 08/15 as follows w/ [facility]. Did not required NE since presentation to . Urine cxat OSH +enterobacter & E faecalis; urine cx here at +E faecalis & klebsiella ->on levaquin. Urology following &rec IR replacement of both PCN (done on 08/15). MEE now improving. Had L subclavian CVC placed by OSH c/bapical pneumothorax noted on admit CXR - underwent chest tube placement 08/16 in IR, CT removed 08/18. Tolerating room air. Stable to tx to the floor. NEURO Hx Anxiety, Depression - HoldingPTA clonazepam 1mg daily PRN, norco 10 ->can reorder per pt request PULM Pneumothorax (improved) - 2/2 Lsubclavian CVC placed at OSH - CXR 08/15 - small-mod L pneumothorax - CXR 08/16- stable L pneumothorax - Currently tolerating RA - Underwent pigtail placement in IR 08/16 - CT removed today - CXR today w/ resolved PTX (final read pending radiology) - Post pull CXR in the morning Tobacco Use - Continue nicotine patch CV Shock (resolved) - On presentation to OSH - Reportedly received 4L IVF then started on norepi -did not require on admit to - Echo 07/02/2018 - LVEF 60%, normal diastolic function, mild LVH, normal RV & valves - EKG - w/o ST changes; trop neg x2 - Received additional 2L IVF on 08/15 - This AM HR 80s&SBP 100s GI Hx GERD - Continue [employer]ER protonix Diarrhea - Cdiff - negative - Last BM 08/16 RENAL MEE on CKD (improved) - Baseline Cr ~1.5 - MEE d/t L PCN malfunction - Briefly required HD in May - Renal scan (OSH) 06/17 - 70+ function of L kidney & 20 or less function of R kidney - FeUrea 08/15 - 30; equivocal - Cr 0.78 - UOP: 870mL per neph tubes - I/O: -850mL/24h; -278ml/admit Plan - 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 Per outpatient notes it's not clear what is causing her ureteral obstructions. Recently had b/l ureteral stents s/p removal. CT showed mild fibrosis low in pelvis posterior to the bladder & perirectal location. Per clinic note 07/30 plan is for endoscopic evaluation of ureters. Ptscheduled for cystoscopy & bilateral retrograde pyelograms & antegrade nephrostogram on 08/23/18 w/ Dr. Moseley for further evaluation of ureteral stricture location &length bilaterally - L perc tube - placed at OSH on 06/19 - R perc tube - placed by [facility] on 07/02 - On admit hadb/l PCN but L wasnot draining - Urology rec IR replacement of both tubes (done 08/15) - Both draining clear yellow urine - Urology signed off - Touch base w/ urology tomorrow as pt said she missed her pre-op appointment last . 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 synthroid 50mcg daily ID Septic Shock (resolving) UTI - WBC 7.5; afebrile - CXR 08/15 - no infiltrate - Blood Cx(OSH) 08/14 - ngtd - Blood Cx08/15 at [facility] - ngtd - Urine Cx(OSH) 08/14 - >100k enterobacter (s to gent, rocephin, bactrim, levaquin, cipro, meropenem; r to ampicillin, cefazolin, augmentin) & >100k E faecalis - UA (R PCN was drawn at 0750) 08/15 - 3+ leuks, packed WBC, few bacteria - Urine Cx(b/lPCN) 08/15- >100K E faecalis, <100k klebsiella - Cdiff 08/15 - negative Plan - ABx narrowed to levaquin to cover E faecalis, klebsiella & enterobacter, plan for 10d levaquin (through 08/26) HEME Provoked DVT - US06/22 - no DVT - US07/01 + R popliteal DVT - Had subcapsular hematoma w/ L PCN placement on 06/19 - Plan was for 3 monthsof AC w/ eliquis at lower dose 5mg BID d/t bleeding risk. DVT felt to be provoked 2/2 prolonged hospital stay in [place] - Continue [employer] eliquis 5mg BID FEN - No current IVF - Replace lytes PRN - Cardiac diet PPX: Lines:PIV Drains/Tubes:B/l nephrostomy tubes DVT: Eliquis GI:Protonix PT/OT: Yes Code Status: Full Code Dispo: stable to tx to the floor Pt seen &discussed w/ Dr. Sarahi Pat [facility] Pulmonary Critical Care Pager [phone] pager [phone] ATTESTATION I personally interviewed and examined the patient. I have reviewed the history , physical, impression and plan outlined by the Nurse Practitioner. The patient presents with Gram negative urosepsis secondary to malpositioned percutaneous nephrostomy tubes, all resulting in septic shock and MEE on CKD. Tubes replaced in IR. Pt also with an iatrogenic left-sided pneumothorax from a subclavian line placement at outside hospital (s/p pigtail catheter placement by IR yesterday). On examination pt is lying in bed in NAD. Reports some discomfort around left- chest tube site. Lungs clear, No air leak on pleura-vac. Lung up on CXR. Heart regular, abdomen soft, extremities are without cl/cy and edema. Neurologically pt is intact albeit weak. My impression is improving sepsis and MEE on CKD with antibiotic treatment and replacement of perc neph tubes. CXR shows resolution of left-sided pneumothorax with pigtail placement. My plan is to continue Levaquin. All organisms sensitive to this drug. Chest tube removed at bedside without complication. Pt tolerated well. Pt stable for transfer to floor. Staff name: Maverick Sanchez MD Date: 08/18/2018 Subjective: Pt had an upset stomach overnight, improved w/ GI cocktail. Happy to have the chest tube removed. ROS: no SOB/CP/+abdominal discomfort that is improved, no nausea, tolerating minimal oral intake, increased mild LE swelling Objective: Medications: Scheduled Meds: apixaban (ELIQUIS) tablet 5 mg 5 mg Oral BID docusate (COLACE) capsule 100 mg 100 mg Oral BID ergocalciferol (VITAMIN D-2) capsule 50,000 Units 50,000 Units Oral levoFLOXacin (LEVAQUIN) tablet 750 mg 750 mg Oral Q24H* levothyroxine (SYNTHROID) tablet 50 mcg 50 mcg Oral QDAY 30 min before breakfast lidocaine (LIDODERM) 5 % topical patch 1 patch 1 patch Topical QDAY(20) nicotine (NICODERM CQ STEP 1) 21 mg/day patch 1 patch 1 patch Transdermal Q24H* nystatin (NYSTOP) topical powder Topical BID pantoprazole DR (PROTONIX) tablet 40 mg 40 mg Oral BID potassium phosphate 15 mmol in dextrose 5% (D5W) 250 mL IVPB (std) 15 mmol Intravenous ONCE sodium chloride PF 0.9% syringe 10 mL 10 mL Intravenous BID Continuous Infusions: PRN and Respiratory Meds:acetaminophen Q6H PRN, carboxymethylcellulose PRN, magnesium sulfate PRN AND Magnesium PRN AND Notify Physician Ongoing, potassium chloride SR PRN OR potassium chloride PRN Vital Signs: Last Filed Vital Signs: 24 Hour Range BP: 118/71 (08/18 400) Temp: 36.8 C (98.2 F) (08/18 400) Pulse: 93 (08/18 400) Respirations: 29 PER MINUTE (08/18 400) SpO2: 98 % (08/18 400) O2 Delivery: None (Room Air) (08/18 400) SpO2 Pulse: 93 (08/18 400) BP: (89-118)/(66-93) Temp: [36.7 C (98 F)-37 C (98.6 F)] Pulse: [80-104] Respirations: [17 PER MINUTE-30 PER MINUTE] SpO2: [96 %-99 %] O2 Delivery: None (Room Air) Intensity Pain Scale (Self Report): 4 (08/17/18 1800) Vitals: 08/15/18 0430 08/17/18 0600 Weight: 76 kg (167 lb 8.8 oz) 77.4 kg (170 lb 10.2 oz) Intake/Output Summary: (Last 24 hours) Intake/Output Summary (Last 24 hours) at 08/18/18 0655 Last data filed at 08/18/18 0400 Gross per 24 hour Intake 20 ml Output 870 ml Net -850 ml Physical Exam: Physical Exam: General Appearance: No apparent distress, sitting upright in bed interactive Skin: no rashes, stage 1 pressure injury per motor express clerk to R heel & buttocks (not assessed) HEENT: PERRL, MMM Chest and Lungs: Clear breath sounds anteriorly, respirations non labored, CT site w/ dressing in place Cardiovascular: RRR Abdomen: soft, nondistended, +BS Genitourinary: b/l neph tubes w/ yellow urine, mild pale bloody output in L tube Extremities: warm, no peripheral edema Neurologic: alert & oriented x3, follows commands, able to move all extremities , non-focal LABS: Recent Labs 08/15/18 1020 08/15/18 1640 08/16/18 0409 08/16/18 1405 08/17/18 0350 08/18/18 022 NA 132* 135* 135* 136* 133* 131* K 3.4* 4.0 3.4* 4.1 3.9 4.0 CL 99 104 105 104 105 102 CO2 25 22 22 22 22 22 GAP 8 9 8 10 6 7 BUN 39* 36* 28* 24 19 13 CR 1.96* 1.76* 1.24* 1.10* 0.94 0.78 GLU 118* 100 94 101* 102* 105* CA 7.4* 7.6* 7.8* 8.3* 8.3* 8.2* ALBUMIN -- -- 2.6* -- 2.6* -- MG 2.3 2.0 1.8 -- 2.1 1.8 PO4 -- -- 2.1 -- 1.7* 1.5* Recent Labs 08/15/18 1020 08/16/18 0409 08/17/18 0350 08/18/18 0225 WBC -- 11.0 6.8 7.5 HGB -- 8.8* 9.3* 9.9* HCT -- 26.2* 29.0* 30.1* PLTCT -- 291 301 374 AST -- 16 15 -- ALT -- 7 8 -- ALKPHOS -- 103 88 -- TNI 0.03 -- -- -- Estimated Creatinine Clearance: 72.4 mL/min (based on SCr of 0.78 mg/dL). Vitals: 08/15/18 0430 08/17/18 0600 Weight: 76 kg (167 lb 8.8 oz) 77.4 kg (170 lb 10.2 oz) No results for input(s): PHART, PO2ART in the last 72 hours. Invalid input(s): PC02A Radiology and Other Diagnostic Procedures Review: Reviewed pertinent studies. * Wesly Givens, PT - 08/18/2018 10:50 AM CDT PHYSICAL THERAPY ASSESSMENT MOBILITY: Mobility Progressive Mobility Level: Walk in hallway Distance Walked (feet): 50 ft Level of Assistance: Stand by assistance Assistive Device: Walker Time Tolerated: 11-30 minutes Activity Limited By: Fatigue SUBJECTIVE: Subjective Significant hospital events: Patient with history of worsening renal function requiring bilateral nephrostomy tubes, admitted from outside [facility] for MEE, septic shock, found to have pneumothorax requiring chest tube. Mental / Cognitive Status: Alert;Oriented;Cooperative Pain: Patient does not rate pain Pain Description: Aching Pain Interventions: Patient agrees to participate in therapy Comments: Patient resting in bed, states she has been up to the commode several times and sat up in the chair as well. Patient agrees to try to walk short distance this morning. Patient Owned Equipment: None Home Situation: Lives Alone Type of Home: House Entry Stairs: 3-5 Stairs In-Home Stairs: Able to Live on One Level ROM: ROM LE ROM: Bilateral;WFL STRENGTH: Strength Overall Strength: WFL POSTURE/NEURO: Posture / Neurological Overall Sensation/Proprioception: No Deficits Noted BED MOBILITY/TRANSFERS: Bed Mobility/Transfers Bed Mobility: Supine to Sit: Modified Independent;Head of Bed Elevated Transfer Type: Sit to/from Stand Transfer: Assistance Level: To/From;Bed;Bed Side Chair;Standby Assist Transfer: Assistive Device: Roller Walker End Of Activity Status: Up in Chair;Nursing Notified BALANCE: Balance Sitting Balance: Static Sitting Balance;Independent Standing Balance: Static Standing Balance;Standby Assist GAIT: Gait Gait Distance: 50 feet Gait: Assistance Level: Minimal Assist;Standby Assist Gait: Assistive Device: Roller Walker Gait: Descriptors: Pace: Slow;Swing-Through Gait;No balance loss;Decreased step length EDUCATION: Education Persons Educated: Patient Patient Barriers To Learning: None Noted Teaching Methods: Verbal Instruction Patient Response: Verbalized Understanding Topics: Plan/Goals of PT Interventions;Use of Assistive Device/Orthosis; Mobility Progression;Safety Awareness;Up with Assist Only;Importance of Increasing Activity;Ambulate With Nursing ASSESSMENT/PROGRESS: Assessment/Progress Impaired Mobility Due To: Decreased Activity Tolerance;Medical Status Limitation Assessment/Progress: Should Improve w/ Continued PT Comments: Patient did well with short distances but needs to show better tolerance and improved independence to be able to return home alone. AM-PAC 6 Clicks Basic Mobility Inpatient Turning [...] Supine To/From Sit: Independently Pt Will Transfer Sit to Stand: Independently Pt Will Ambulate: Greater than 200 Feet, w/ Walker, Independently Pt Will Go Up / Down Stairs: 3-5 Stairs, Independently PLAN: Plan Treatment Interventions: Mobility Training;Strengthening;Balance Activities; Coordination Training;Endurance Training Plan Frequency: 5 Days per Week PT Plan for Next Visit: Work on increasing ambulation distance and needs to prove she can do stairs safely as she lives lone and has entry stairs at home. RECOMMENDATIONS: PT Discharge Recommendations PT Discharge Recommendations: Home with Assistance;and;Home Health Setting;to address deficits, maximize function and improve safety Equipment Recommendations: Roller Walker Patient requires the use of a walker with wheels to complete ADLs in the home including meal preparation, ambulation the bathroom for toileting, bathing and grooming, and safe home mobility. Patient is unable to complete these ADLs with a cane or crutch and can safely use the walker. Therapist: Wesly Givens DPT Date: 08/18/2018 * Debi Rosas RN - 08/18/2018 10:09 AM CDT ~0720 report received & bedside safety check completed ~0800 assessment completed per ICU flowsheet; ~1000 chest tube removed * Becca Pride - 08/18/2018 5:54 AM CDT Formatting of this note may be different from the original. Pulmonary / Critical Care Progress Note Aracelis Espinal Today's Date: 08/18/2018 Admission Date: 08/15/2018 LOS: 3 days Principal Problem: Septic shock (HCC) Active Problems: Anxiety Major depressive disorder with single episode, in remission (HCC) Gastroesophageal reflux disease without esophagitis Hypothyroidism due to acquired atrophy of thyroid Vitamin D deficiency Acute deep vein thrombosis (DVT) of distal end of right lower extremity (HCC) Obesity (BMI 30-39.9) Bilateral ureteral obstruction Pneumothorax, iatrogenic Brief Hospital Course: Aracelis Espinalis a 67 y.o.femalewith a PMH of: hypothyroidism, anxiety/ depression, HLD, GERD, R popliteal DVT (07/01/18), b/l uteretral obstruction s/p b/l percutaneous nephrostomy tubes. Renal complications started 06/03 when she presented with fatigue, N/V, decreased UOP at OSH. B/l hydronephrosis found, b/ l stent placement with HD. Due to worsening renal function, L nephrostomy tube placed 06/19 with 20% function of R kidney. Pt d/c and then presented at on with SOA, increased b/l LE edema. Right nephrostomy tube placed during this admission and was d/c 07/08. She presented to [facility] on 08/14 in septic shock &non-draining L nephrostomy tube, suspecting urinary source. She was given fluids and started on NE and then tx'd to on 08/15 as follows w/ [facility]. Once pt arrived, NE was stopped and pt given 2L fluids with NICOM showing responsiveness. Has been hemodynamically stable since. UC at OSH +enterobacter merrem started. Urology consulted and b/l nephrostomy change by IR. MEE improving. L subclavian CVC placed by OSH and apical pneumothorax noted on admit CXR. Pigtail CT placed by IR 08/16. 08/17 UC + e. faecalis and klebsiella showing sensitivity to levafloxacin. Merrem d/c due to enterobactor sensitive to levafloxacin from OSH. Pigtail CT placed on WS and [employer] WORK[employer] eliquis restarted. Pt downgraded to floor status. Today, pt continues to be stable overnight with no acute issues. Chest tube removed this AM. Assessment/Plan: NEURO: hx Anxiety, Depression - hold [employer]: clonazepam 1mg qd prn, norco 10/325 CV: Shock (resolved) - On presentation to OSH and reportedly received 4L IVF with NE started [employer]. No pressor needed once admitted to [facility]. Received 2L IVF w/ NiCom on 08/15 & was still responsive. EKG 08/15 w/o ST changes with trop neg x2. - Echo 07/02/2018 - LVEF 60%, normal diastolic function, mild LVH, normal RV & valves - HR 90s-100s&SBP 100s-120s PULM: Pneumothorax (improved) - L subclavian CVC placed at OSH - CXR 08/15: small-mod L pneumothorax - CXR 08/16: stable L pneumothorax - Pigtail CT by IR 08/16 - CXR 08/17: Decreased conspicuity of left apical pneumothorax with left chest tube in place. With -20 suction. - Placed on water seal 08/17 - Stable on RA - CXR this AM: pending --> Spoke with radiology this AM pneumothorax appears to be resolved. Plan - Remove CT this AM - CXR in AM Tobacco Use - Continue nicotine patch GI: hx GERD - Continue [employer]: protonix Diarrhea - Cdiff 08/15: negative - Last BM 08/16 RENAL: MEE on CKD (improved) - Baseline Cr ~1.5 - D/t L PCN malfunction - Briefly required HD in May - Renal scan (OSH) 06/17: 70+ function of L kidney & 20 or less function of R kidney - FeUrea 08/15: 30; equivocal - [employer]ERK 1.53 on admission --> 0. 78 this AM - IO: 0: Net - 850mL - UOP in 24 hours: 870mL Plan - Restart [employer] lasix 40mg qd - Hold [employer] torsemide 20mg qd Electrolyte Derrangement - K 4.0, Phos 1.5, Mg 1.8 - Replaced this AM - BMP daily b/l Uteretral Obstruction - Has b/l percutaneous nephrostomy tubes - Saw Dr. Moseley w/ urology on 07/30 --> planning for cystoscopy w/ pyelograms - L perc tube - placed at OSH on 06/19 - R perc tube - placed by [facility] IR on 07/02 - On admit has b/l PCN but L was not draining - Urology following --> recc IR replacement of both tubes; considering cysto - IR replaced R PCN & placed a new L PCN 08/15 - Both draining clear yellow urine this AM Plan - Continue flushing b/l drains Q12 hours with 10mL NS ENDO: hx Hypothyroidism - TSH 1.2 Plan - Continue [employer]: Synthroid 50mcg qd ID: Septic Shock (resolving) UTI - WBC 7.5; afebrile - No prior resistant organisms - CXR 08/15: no infiltrate - BC (OSH) 08/14: NG x 2d - UC (OSH) 08/14: > 100k enterobacter with sensitivities to gentamicin, ceftriaxone, trimeth/sulfa, levofloxacin, ciprofloxacin, meropenem - UC (OSH) 08/14: > 100k enterococcus faecalis with sensitivities pending - BC 08/15 - NG x 2d - UA (R PCN was drawn at 0750) 08/15 - 3+ leuks, packed WBC, few bacteria - UC (b/lPCN) 08/15: > 100k E. Faecalis with sensitivities to ampicillin, daptomycin, levofloxacin, nitrofurntoin, tetracycline, and vancomycin & < 100k klebsiella with sensitivities to cefepime, ceftriaxone, ertapenem, gentamicin, levofloxacin, zosyn, tetracycline, and trimethsulfa - Cdiff 08/15 - Neg Plan - Levaquin 750mg continued --> plan for 10 days (08/26) HEME: Provoked DVT - Us 06/22: no DVT - Us 07/01: + R popliteal DVT - Had subcapsular hematoma w/ L PCN placement on 06/19 - Plan is for 3m of AC w/ eliquis at lower dose d/t bleeding risk Plan - Eliquis 5mg continued FEN - No IVF - Electrolytes replaced - Cardiac diet Prophylaxis Review: Lines: PIV Tubes:B/l nephrostomy tubes Insulin:No Urinary Catheter:No DVT:[employer] eliquis GI ppx:Protonix PT/OT: Yes Code status:Full Code Disposition:Floor (med/surg) Becca Pride APRN student Subjective: Aracelis Espinal is a 67 y.o. female who laying in bed comfortably with no acute issues this AM. ROS: Denies PRESLEY, chest pain/pressure, SOB, cough, N/V/D. Confirms a mild discomfort in her abdomen. Pt states she is passing fluctuance and is going to attempt to use the commode. Objective: Medications: Scheduled Meds: acetaminophen/lidocaine/antacid DS(#) (GI COCKTAIL) 1:1:3 suspension 30 mL 30 mL Oral ONCE apixaban (ELIQUIS) tablet 5 mg 5 mg Oral BID docusate (COLACE) capsule 100 mg 100 mg Oral BID ergocalciferol (VITAMIN D-2) capsule 50,000 Units 50,000 Units Oral levoFLOXacin (LEVAQUIN) tablet 750 mg 750 mg Oral Q24H* levothyroxine (SYNTHROID) tablet 50 mcg 50 mcg Oral QDAY 30 min before breakfast lidocaine (LIDODERM) 5 % topical patch 1 patch 1 patch Topical QDAY(20) nicotine (NICODERM CQ STEP 1) 21 mg/day patch 1 patch 1 patch Transdermal Q24H* nystatin (NYSTOP) topical powder Topical BID pantoprazole DR (PROTONIX) tablet 40 mg 40 mg Oral BID potassium phosphate 15 mmol in dextrose 5% (D5W) 250 mL IVPB (std) 15 mmol Intravenous ONCE sodium chloride PF 0.9% syringe 10 mL 10 mL Intravenous BID Continuous Infusions: PRN and Respiratory Meds:acetaminophen Q6H PRN, carboxymethylcellulose PRN, magnesium sulfate PRN AND Magnesium PRN AND Notify Physician Ongoing, potassium chloride SR PRN OR potassium chloride PRN Vital Signs: Last Filed Vital Signs: 24 Hour Range BP: 118/71 (08/18 400) Temp: 36.8 C (98.2 F) (08/18 400) Pulse: 93 (08/18 400) Respirations: 29 PER MINUTE (08/18 400) SpO2: 98 % (08/18 400) O2 Delivery: None (Room Air) (08/18 400) SpO2 Pulse: 93 (08/18 400) BP: (89-118)/(66-93) Temp: [36.7 C (98 F)-37 C (98.6 F)] Pulse: [80-104] Respirations: [17 PER MINUTE-30 PER MINUTE] SpO2: [96 %-99 %] O2 Delivery: None (Room Air) Intensity Pain Scale (Self Report): 4 (08/17/18 1800) Vitals: 08/15/18 0430 08/17/18 0600 Weight: 76 kg (167 lb 8.8 oz) 77.4 kg (170 lb 10.2 oz) Intake/Output Summary: (Last 24 hours) Intake/Output Summary (Last 24 hours) at 08/18/18 0554 Last data filed at 08/18/18 040 Gross per 24 hour Intake 120 ml Output 870 ml Net -750 ml Physical Exam: General: Alert, cooperative, no distress, appears stated age Eyes: PERRL 3 bilaterally Lungs: Clear to auscultation bilaterally Chest wall: No tenderness or deformity. Clear to auscultation bilaterally. Chest tube in place on this assessment. No evidence of air leak on water seal. Dressing C/D/I. Renal: Bilateral nephrostomy tubes in place. R yellow and clear and L yellow and clear with small evidence of blood in drainage bag. Abdomen: Soft, non-tender. Bowel sounds normal. Extremities: Extremities normal, atraumatic, no cyanosis. Trace edema noted in BLE. Peripheral pulses 2+ and symmetric, all extremities. Skin: Skin color, texture, turgor normal. No rashes or lesions Neurologic: Normal strength and sensation. A&Ox4 and follows commands. Laboratory: LABS: Recent Labs 08/15/18 1020 08/15/18 1640 08/16/18 0409 08/16/18 1405 08/17/18 0350 08/18/18 0225 NA 132* 135* 135* 136* 133* 131* K 3.4* 4.0 3.4* 4.1 3.9 4.0 CL 99 104 105 104 105 102 CO2 25 22 22 22 22 22 GAP 8 9 8 10 6 7 BUN 39* 36* 28* 24 19 13 CR 1.96* 1.76* 1.24* 1.10* 0.94 0.78 GLU 118* 100 94 101* 102* 105* CA 7.4* 7.6* 7.8* 8.3* 8.3* 8.2* ALBUMIN -- -- 2.6* -- 2.6* -- MG 2.3 2.0 1.8 -- 2.1 1.8 PO4 -- -- 2.1 -- 1.7* 1.5* Recent Labs 08/15/18 0650 08/15/18 1020 08/16/18 0409 08/17/18 0350 08/18/18 0225 WBC -- -- 11.0 6.8 7.5 HGB -- -- 8.8* 9.3* 9.9* HCT -- -- 26.2* 29.0* 30.1* PLTCT -- -- 291 301 374 AST -- -- 16 15 -- ALT -- -- 7 8 -- ALKPHOS -- -- 103 88 -- TNI 0.04 0.03 -- -- -- Estimated Creatinine Clearance: 72.4 mL/min (based on SCr of 0.78 mg/dL). Vitals: 08/15/18 0430 08/17/18 0600 Weight: 76 kg (167 lb 8.8 oz) 77.4 kg (170 lb 10.2 oz) No results for input(s): PHART, PO2ART in the last 72 hours. Invalid input(s): PC02A Radiology and Other Diagnostic Procedures Review: Reviewed pertinent studies. * Becca Pride - 08/17/2018 4:18 PM CDT Formatting of this note may be different from the original. Pulmonary / Critical Care Progress Note Aracelis Espinal Today's Date: 08/17/2018 Admission Date: 08/15/2018 LOS: 2 days Principal Problem: Septic shock (HCC) Active Problems: Anxiety Major depressive disorder with single episode, in remission (HCC) Gastroesophageal reflux disease without esophagitis Hypothyroidism due to acquired atrophy of thyroid Vitamin D deficiency Acute deep vein thrombosis (DVT) of distal end of right lower extremity (HCC) Obesity (BMI 30-39.9) Bilateral ureteral obstruction Pneumothorax, iatrogenic Brief Hospital Course: Aracelis Espinal is a 67 y.o. female with a PMH of: hypothyroidism, anxiety/ depression, HLD, GERD, R popliteal DVT (07/01/18), b/l uteretral obstruction s/p b/l percutaneous nephrostomy tubes. Renal complications started 06/03 when she presented with fatigue, N/V, decreased UOP at OSH. B/l hydronephrosis found, b/ l stent placement with HD. Due to worsening renal function, L nephrostomy tube placed 06/19 with 20% function of R kidney. Pt d/c and then presented at on with SOA, increased b/l LE edema. Right nephrostomy tube placed during this admission and was d/c 07/08. She presented to [facility] on 08/14 in septic shock & non-draining L nephrostomy tube, suspecting urinary source. She was given fluids and started on NE and then tx'd to on 08/15 as follows w/ [facility] urology. Once pt arrived, NE was stopped and pt given 2L fluids with NICOM showing responsiveness. Has been hemodynamically stable since. UC at OSH +enterobacter merrem started. Urology consulted and b/l nephrostomy change by IR. MEE improving. L subclavian CVC placed by OSH and apical pneumothorax noted on admit CXR. Pigtail CT placed by IR 08/16. Today, pt A&O with stable VS since admission. UC + e. faecalis and klebsiella showing sensitivity to levafloxacin. Merrem d/c due to enterobactor sensitive to levafloxacin from OSH. Pigtail CT placed on WS and [employer] eliquis restarted. Pt downgraded to floor status. Assessment/Plan: NEURO: hx Anxiety, Depression - hold [employer]: clonazepam 1mg qd prn, norco 10/325 CV: Shock (resolved) - On presentation to OSH - Reportedly received 4L IVF - Started on NE there but did not require on admit to - Echo 07/02/2018 - LVEF 60%, normal diastolic function, mild LVH, normal RV & valves - EKG - w/o ST changes - Trop neg x2 - Received 2L IVF w/ NiCom on 08/15 & was still responsive - HR 70s-90s & SBP 90s-110s PULM: Pneumothorax - L subclavian CVC placed at OSH - CXR 08/15: small-mod L pneumothorax - CXR 08/16: stable L pneumothorax - Pigtail CT by IR 08/16 - Stable on RA - CXR this AM: Decreased conspicuity of left apical pneumothorax with left chest tube in place. Plan - WS - CXR tomorrow AM GI: hx GERD - Continue [employer]: protonix Diarrhea - Cdiff 08/15: negative RENAL: MEE on CKD - Baseline Cr ~1.5 - D/t L PCN malfunction - Briefly required HD in May - Renal scan (OSH) 06/17: 70+ function of L kidney & 20 or less function of R kidney - FeUrea 08/15 - ; equivocal - Cr 2.06 -> 0.94 - IO: 440 / 1.5: Net - 1L - UOP in 24 hours: 1.4L Plan - Hold [employer]: lasix 40mg qd & torsemide 20mg qd Electrolyte Derrangement - K 3.9 & phos 1.7 - Replaced this AM - BMP daily b/l Uteretral Obstruction - Has b/l percutaneous nephrostomy tubes - Saw Dr. Moseley w/ urology on 07/30 --> planning for cystoscopy w/ pyelograms - L perc tube - placed at OSH on 06/19 - R perc tube - placed by [facility] IR on 07/02 - On admit has b/l PCN but L was not draining - Urology following --> recc IR replacement of both tubes; considering cysto - IR replaced R PCN & placed a new L PCN 08/15 - Both draining clear yellow urine this AM ENDO: hx Hypothyroidism - TSH 1.2 Plan - Continue [employer]: Synthroid 50mcg qd ID: Septic Shock UTI - WBC 6.8; afebrile - No prior resistant organisms - CXR 08/15: no infiltrate - BC (OSH) 3: NG x 2d - UC (OSH) 08/14: > 100k enterobacter with sensitivities to gentamicin, ceftriaxone, trimeth/sulfa, levofloxacin, ciprofloxacin, meropenem - UC (OSH) 08/14: > 100k enterococcus faecalis with sensitivities pending - BC 08/15 - NG x 2d - UA (R PCN was drawn at 0750) 08/15 - 3+ leuks, packed WBC, few bacteria - UC (b/l PCN) 08/15: > 100k E. Faecalis with sensitivities to ampicillin, daptomycin, levofloxacin, nitrofurntoin, tetracycline, and vancomycin & < 100k klebsiella with sensitivities to cefepime, ceftriaxone, ertapenem, gentamicin, levofloxacin, zosyn, tetracycline, and trimethsulfa - Cdiff 08/15 - Neg Plan - Levaquin 750mg started - D/c merrem HEME: Provoked DVT - Us 06/22: no DVT - Us 07/01: + R popliteal DVT - Had subcapsular hematoma w/ L PCN placement on 06/19 - Plan is for 3m of AC w/ eliquis at lower dose d/t bleeding risk Plan - Restart eliquis 5mg FEN - No IVF - Electrolytes replaced - Cardiac diet Prophylaxis Review: Lines: PIV Tubes: B/l nephrostomy tubes Insulin: No Urinary Catheter: No DVT: [employer] eliquis GI ppx: Protonix PT/OT: Yes Code status: Full Code Disposition: Floor (med/surg) Becca Pride APRN student Subjective: Aracelis Espinal is a 67 y.o. female who is alert, oriented, and resting comfortably in bed with mild discomfort to right chest related to chest tube. ROS: Denies PRESLEY, SOB, cough, abdominal pain, N/V/D. Objective: Medications: Scheduled Meds: apixaban (ELIQUIS) tablet 5 mg 5 mg Oral BID docusate (COLACE) capsule 100 mg 100 mg Oral BID ergocalciferol (VITAMIN D-2) capsule 50,000 Units 50,000 Units Oral levoFLOXacin (LEVAQUIN) tablet 750 mg 750 mg Oral Q24H* levothyroxine (SYNTHROID) tablet 50 mcg 50 mcg Oral QDAY 30 min before breakfast lidocaine (LIDODERM) 5 % topical patch 1 patch 1 patch Topical QDAY(20) nicotine (NICODERM CQ STEP 1) 21 mg/day patch 1 patch 1 patch Transdermal Q24H* nystatin (NYSTOP) topical powder Topical BID pantoprazole DR (PROTONIX) tablet 40 mg 40 mg Oral BID sodium chloride PF 0.9% syringe 10 mL 10 mL Intravenous BID Continuous Infusions: PRN and Respiratory Meds:acetaminophen Q6H PRN, carboxymethylcellulose PRN, magnesium sulfate PRN AND Magnesium PRN AND Notify Physician Ongoing, potassium chloride SR PRN OR potassium chloride PRN Vital Signs: Last Filed Vital Signs: 24 Hour Range BP: 93/66 (08/17 1500) Temp: 36.8 C (98.3 F) (08/17 0830) Pulse: 99 (08/17 1500) Respirations: 29 PER MINUTE (08/17 1500) SpO2: 97 % (08/17 1500) O2 Delivery: None (Room Air) (08/17 1500) SpO2 Pulse: 98 (08/17 1500) BP: (89-114)/(64-93) Temp: [36.6 C (97.8 F)-36.9 C (98.5 F)] Pulse: [78-99] Respirations: [15 PER MINUTE-29 PER MINUTE] SpO2: [94 %-100 %] O2 Delivery: None (Room Air) Intensity Pain Scale (Self Report): 4 (08/17/18 0650) Vitals: 08/15/18 0430 08/17/18 0600 Weight: 76 kg (167 lb 8.8 oz) 77.4 kg (170 lb 10.2 oz) Intake/Output Summary: (Last 24 hours) Intake/Output Summary (Last 24 hours) at 08/17/18 1618 Last data filed at 08/17/18 1200 Gross per 24 hour Intake 420 ml Output 1050 ml Net -630 ml Physical Exam: General: Alert, cooperative, no distress, appears stated age Eyes: Conjunctivae/corneas clear. Lungs: Clear to auscultation bilaterally Chest wall: L pigtail CT in place. Dressing C/D/I. Heart: Regular rate and rhythm, S1, S2 teja Abdomen: Soft, non-tender. Bowel sounds normal. Extremities: Extremities normal, atraumatic, no cyanosis. Trace BLE edema Peripheral pulses 2+ and symmetric, all extremities Skin: Skin color, texture, turgor normal. No rashes or lesions Neurologic: Normal strength and sensation Laboratory: LABS: Recent Labs 08/15/18 0455 08/15/18 1020 08/15/18 1640 08/16/18 0409 08/16/18 1405 08/17/18 0350 NA 134* 132* 135* 135* 136* 133* K 2.5* 3.4* 4.0 3.4* 4.1 3.9 CL 99 99 104 105 104 105 CO2 25 25 22 22 22 22 GAP 10 8 9 8 10 6 BUN 38* 39* 36* 28* 24 19 CR 2.06* 1.96* 1.76* 1.24* 1.10* 0.94 GLU 109* 118* 100 94 101* 102* CA 7.3* 7.4* 7.6* 7.8* 8.3* 8.3* ALBUMIN 2.8* -- -- 2.6* -- 2.6* MG 1.1* 2.3 2.0 1.8 -- 2.1 PO4 2.5 -- -- 2.1 -- 1.7* TSH 1.200 -- -- -- -- -- Recent Labs 08/15/18 0455 08/15/18 0650 08/15/18 1020 08/16/18 0409 08/17/18 0350 WBC 15.8* -- -- 11.0 6.8 HGB 9.0* -- -- 8.8* 9.3* HCT 26.9* -- -- 26.2* 29.0* PLTCT 294 -- -- 291 301 INR 2.0* -- -- -- -- PTT 28.6 -- -- -- -- AST 13 -- -- 16 15 ALT 6* -- -- 7 8 ALKPHOS 67 -- -- 103 88 TNI 0.03 0.04 0.03 -- -- Estimated Creatinine Clearance: 60.1 mL/min (based on SCr of 0.94 mg/dL). Vitals: 08/15/18 0430 08/17/18 0600 Weight: 76 kg (167 lb 8.8 oz) 77.4 kg (170 lb 10.2 oz) No results for input(s): PHART, PO2ART in the last 72 hours. Invalid input(s): PC02A Radiology and Other Diagnostic Procedures Review: Reviewed pertinent studies. * Parveen Michaud RN - 08/17/2018 4:10 PM CDT 0720: Report received and bedside safety check completed. 0830: Head to toe assessment completed - see ICU flow sheet. The patient is alert and oriented x4. The patient is having some pain on her left side around CT site. She rated it a 2/10. Plan of care reviewed with patient. Will continue to closely monitor. 1020: Patient now MedSurg status. CT to waterseal. No significant events or concerns noted thus far in the shift. 1610: Primary care transferred to Vinny Arango RN at this time. * Maverick Sanchez MD - 08/17/2018 1:08 PM CDT Formatting of this note may be different from the original. Pulmonary / Critical Care Progress Note Aracelis Morrow Teddy Today's Date: 08/17/2018 Admission Date: 08/15/2018 LOS: 2 days Assessment/Plan: Principal Problem: Septic shock (HCC) Active Problems: Anxiety Major depressive disorder with single episode, in remission (HCC) Gastroesophageal reflux disease without esophagitis Hypothyroidism due to acquired atrophy of thyroid Vitamin D deficiency Acute deep vein thrombosis (DVT) of distal end of right lower extremity (HCC) Obesity (BMI 30-39.9) Bilateral ureteral obstruction Pneumothorax, iatrogenic Hospital Course 67 y/o Fw/ PMH hypothyroidism, anxiety/depression, HLD, GERD, R popliteal DVT (07/01/18), b/l uteretral obstruction s/p b/l percutaneous nephrostomy tubes. Presented to [facility] 08/14 in septic shock &non-draining L nephrostomy tube, suspecting urinary source. She was started on NE & txd to on 08/15 as follows w/ [facility] urology. Has not required NE since presentation to . Urine cx at OSH +enterobacter & E faecalis; urine cx here at [facility] +E faecalis & klebsiella ->on levaquin. Urology following &rec IR replacement of both PCN (done on 08/15). MEE now improving. L subclavian CVC placed by OSH c/b apical pneumothorax noted on admit CXR - underwent chest tube placement 08/16 in IR, tolerating room air. Stable to tx to the floor. NEURO Hx Anxiety, Depression - Holding [employer] clonazepam 1mg daily PRN, norco ->can reorder per pt request PULM Pneumothorax (improved) - 2/2 L subclavian CVC placed at OSH - CXR 08/15 - small-mod L pneumothorax - CXR 08/16- stable L pneumothorax - Currently tolerating RA - Underwent pigtail placement in IR 08/16 - Place CT to water seal - CXR in AM if no leak tomorrow will pull CT - CXR today w/ no residual PTX Tobacco Use - Continue nicotine patch CV Shock (resolved) - On presentation to OSH - Reportedly received 4L IVF then started on norepi - did not require on admit to [facility] - Echo 07/02/2018 - LVEF 60%, normal diastolic function, mild LVH, normal RV & valves - EKG - w/o ST changes; trop neg x2 - Received additional 2L IVF on 08/15 - This AM HR 80s&SBP 100s GI Hx GERD - Continue [employer] protonix Diarrhea - Cdiff - negative - Last BM 08/16 RENAL MEE on CKD (improved) - Baseline Cr ~1.5 - MEE d/t L PCN malfunction - Briefly required HD in May - Renal scan (OSH) 06/17 - + function of L kidney & 20 or less function of R kidney - FeUrea 08/15 - 30; equivocal - Cr 0.94 - UOP: 1.4L per neph tubes - I/O: -1L/24h; +570ml/admit Plan - Hold [employer] lasix 40mg qd & torsemide 20mg qd ->per pt started d/t LE edema B/l Uteretral Obstruction - Has b/l percutaneous nephrostomy tubes. Per outpatient notes it's not clear what is causing her ureteral obstructions. Recently had b/l ureteral stents s/p removal. CT showed mild fibrosis low in pelvis posterior to the bladder & perirectal location. Per clinic note 07/30 plan is for endoscopic evaluation of ureters. Pt scheduled for cystoscopy & bilateral retrograde pyelograms & antegrade nephrostogram on 08/23/18 w/ Dr. Moseley for further evaluation of ureteral stricture location & length bilaterally - L perc tube - placed at OSH on 06/19 - R perc tube - placed by [facility] IR on 07/02 - On admit had b/l PCN but L was not draining - Urology rec IR replacement of both tubes (done 08/15) - Both draining clear yellow urine - Urology signed off ENDO Hx Hypothyroidism - TSH 1.2 - Continue [employer] synthroid 50mcg daily ID Septic Shock (resolving) UTI - WBC 6.8; afebrile - CXR 08/15 - no infiltrate - Blood Cx (OSH) 08/14 - ngtd - Blood Cx 08/15 - ngtd - Urine Cx (OSH) 08/14 - >100k enterobacter (s to gent, rocephin, bactrim, levaquin, cipro, meropenem; r to ampicillin, cefazolin, augmentin) & >100k E faecalis - UA (R PCN was drawn at 0750) 08/15 - 3+ leuks, packed WBC, few bacteria - Urine Cx (b/lPCN) 08/15- >100K E faecalis, <100k klebsiella - Cdiff 08/15 - negative Plan - ABx narrowed to levaquin to cover E faecalis, klebsiella & enterobacter HEME Provoked DVT - US 06/22 - no DVT - US 07/01 + R popliteal DVT - Had subcapsular hematoma w/ L PCN placement on 06/19 - Plan was for 3 months of AC w/ eliquis at lower dose 5mg BID d/t bleeding risk. DVT felt to be provoked 2/2 prolonged hospital stay in [place] - Resume [employer] eliquis 5mg BID FEN - No current IVF - Replace lytes PRN - Cardiac diet PPX: Lines: PIV Drains/Tubes: B/l nephrostomy tubes DVT: Eliquis GI: Protonix PT/OT: Yes Code Status: Full Code Dispo: stable to tx to the floor Pt seen & discussed w/ Dr. Sarahi Pat [facility] Pulmonary Critical Care Pager [phone] pager [phone] ATTESTATION I personally interviewed and examined the patient. I have reviewed the history , physical, impression and plan outlined by the Nurse Practitioner. The patient presents with Gram negative urosepsis secondary to malpositioned percutaneous nephrostomy tubes, all resulting in septic shock and MEE on CKD. Tubes replaced in IR. Pt also with an iatrogenic left-sided pneumothorax from a subclavian line placement at outside hospital (s/p pigtail catheter placement by IR yesterday). On examination pt is lying in bed in NAD. Reports some discomfort around left- chest tube site. Lungs clear, No air leak on pleura-vac. Lung up on CXR. Heart regular, abdomen soft, extremities are without cl/cy and edema. Neurologically pt is intact albeit weak. My impression is improving sepsis and MEE on CKD with antibiotic treatment and replacement of perc neph tubes. CXR shows resolution of left-sided pneumothorax with pigtail placement. My plan is to taper antibiotic to Levaquin. All organisms sensitive to this drug. Place chest tube on water seal with plans to remove chest tube in am if lung remains up on CXR. Pt stable for transfer to floor. Staff name: Maverick Sanchez MD Date: 08/17/2018 Subjective: Pt feeling "okay" not great this morning. Chest tube is causing some pain. ROS: no SOB/CP/+pain at chest tube site, no nausea but does not have much of an appetite Objective: Medications: Scheduled Meds: docusate (COLACE) capsule 100 mg 100 mg Oral BID ergocalciferol (VITAMIN D-2) capsule 50,000 Units 50,000 Units Oral levothyroxine (SYNTHROID) tablet 50 mcg 50 mcg Oral QDAY 30 min before breakfast lidocaine (LIDODERM) 5 % topical patch 1 patch 1 patch Topical QDAY(20) meropenem (MERREM) IVP 1 g 1 g Intravenous Q12H* nicotine (NICODERM CQ STEP 1) 21 mg/day patch 1 patch 1 patch Transdermal Q24H* nystatin (NYSTOP) topical powder Topical BID pantoprazole DR (PROTONIX) tablet 40 mg 40 mg Oral BID sodium chloride PF 0.9% syringe 10 mL 10 mL Intravenous BID Continuous Infusions: PRN and Respiratory Meds:acetaminophen Q6H PRN, carboxymethylcellulose PRN, magnesium sulfate PRN AND Magnesium PRN AND Notify Physician Ongoing, potassium chloride SR PRN OR potassium chloride PRN Vital Signs: Last Filed Vital Signs: 24 Hour Range BP: 114/76 (08/17 600) Temp: 36.8 C (98.3 F) (08/17 0400) Pulse: 86 (08/17 600) Respirations: 22 PER MINUTE (08/17 600) SpO2: 97 % (10/06 0600) O2 Delivery: None (Room Air) (08/17 600) SpO2 Pulse: 86 (08/17 600) BP: (91-118)/(64-76) Temp: [36.6 C (97.8 F)-36.9 C (98.5 F)] Pulse: [78-96] Respirations: [15 PER MINUTE-29 PER MINUTE] SpO2: [94 %-100 %] O2 Delivery: None (Room Air) Intensity Pain Scale (Self Report): 4 (08/16/18 2330) Vitals: 08/15/18 0430 08/17/18 06 Weight: 76 kg (167 lb 8.8 oz) 77.4 kg (170 lb 10.2 oz) Intake/Output Summary: (Last 24 hours) Intake/Output Summary (Last 24 hours) at 08/17/18639 Last data filed at 08/17/18599 Gross per 24 hour Intake 540 ml Output 1510 ml Net -970 ml Physical Exam: Physical Exam: General Appearance: No apparent distress Skin: no rashes, stage 1 pressure injury per motor express clerk to R heel & buttocks (not assessed) HEENT: PERRL, MMM Chest and Lungs: Clear breath sounds anteriorly, respirations non labored, CT site c/d/i w/ dressing in place, no airleak Cardiovascular: RRR Abdomen: soft, nondistended, +BS Genitourinary: b/l neph tubes w/ yellow urine Extremities: warm, no peripheral edema Neurologic: alert & oriented x3, follows commands, able to move all extremities , non-focal LABS: Recent Labs 08/15/18 0455 08/15/18 1020 08/15/18 1640 08/16/18 0409 08/16/18 1405 08/17/18 0350 NA 134* 132* 135* 135* 136* 133* K 2.5* 3.4* 4.0 3.4* 4.1 3.9 CL 99 99 104 105 104 105 CO2 25 25 22 22 22 22 GAP 10 8 9 8 10 6 BUN 38* 39* 36* 28* 24 19 CR 2.06* 1.96* 1.76* 1.24* 1.10* 0.94 GLU 109* 118* 100 94 101* 102* CA 7.3* 7.4* 7.6* 7.8* 8.3* 8.3* ALBUMIN 2.8* -- -- 2.6* -- 2.6* MG 1.1* 2.3 2.0 1.8 -- 2.1 PO4 2.5 -- -- 2.1 -- 1.7* TSH 1.200 -- -- -- -- -- Recent Labs 08/15/18 0455 08/15/18 0650 08/15/18 1020 08/16/18 0409 08/17/18 0350 WBC 15.8* -- -- 11.0 6.8 HGB 9.0* -- -- 8.8* 9.3* HCT 26.9* -- -- 26.2* 29.0* PLTCT 294 -- -- 291 301 INR 2.0* -- -- -- -- PTT 28.6 -- -- -- -- AST 13 -- -- 16 15 ALT 6* -- -- 7 8 ALKPHOS 67 -- -- 103 88 TNI 0.03 0.04 0.03 -- -- Estimated Creatinine Clearance: 60.1 mL/min (based on SCr of 0.94 mg/dL). Vitals: 08/15/18 0430 08/17/18 0600 Weight: 76 kg (167 lb 8.8 oz) 77.4 kg (170 lb 10.2 oz) No results for input(s): PHART, PO2ART in the last 72 hours. Invalid input(s): PC02A Radiology and Other Diagnostic Procedures Review: Reviewed pertinent studies. * Terrie Fish, PT - 08/17/2018 11:18 AM CDT PHYSICAL THERAPY NOTE Patient declined to participate despite extensive encouragement and education about the role and benefits of physical therapy. Physical therapy will continue to follow and provide intervention as indicated. Therapist: Terrie Fish, PT Date: 08/17/2018 * Ebony Paul, RN - 08/16/2018 7:33 PM CDT 1505 Handoff and bedside safety check completed with Елена Powell RN. Fall bundle in place, call light within reach, encouraged patient to call for assistance, patient verbalized understanding. 2014 Assessment completed, patient alert and oriented x4, see flowsheet for complete details. Dr. Christie at bedside, discussed pain at/around chest tube site , patient rating pain at 6/10, patient previously received tylenol, heating pad in place, stated orders for lidoderm patch will be placed. 2255 Patient reporting pain, notified Dr. Christie, modified tylenol orders received. Also, notified of fax with lab results from outside hospital. 2330 Reassessment completed, see flowsheet for details. 08/17/2018 0400 Reassessment completed, patient denies pain, see flowsheet for complete assessment details. 0730 Handoff and bedside safety check completed with Parveen Michaud, ELADIO. * Елена Powell, RN - 08/16/2018 5:30 PM CDT 0800 Report received, bedside safety check and assessment complete. Monitor and alarms verified. Pt O2 sat 100% on HFNC 6 L, denies feeling SOB. Pt is AOx4, moving all extremities and following commands. Please see flow sheet for complete assessment. 1612 Pt transported to IR for chest tube placement. 1709 Pt arrived back to unit. 1730 Pt sats 97% on RA. Gave tylenol for mild upper left chest discomfort. * Darrick Marquez, RN - 08/16/2018 4:36 PM CDT Sedation physician present in room. Recent vitals and patient condition reviewed between sedating physician and nurse. Reassessment completed. Determination made to proceed with planned sedation. * Hazel Sanchez, PT - 08/16/2018 2:49 PM CDT PHYSICAL THERAPY NOTE Attempted assessment this date. Patient declined activity at this time due to fatigue. Patient recently returned to bed from being up in the chair. Patient reports waiting to go for a procedure as well. Physical therapy will continue to follow and provide intervention as appropriate. Therapist: Hazel Sanchez, PT, DPT Date: 08/16/2018 * Storm Rubalcava, NEGNI - 08/16/2018 10:09 AM CDT Formatting of this note may be different from the original. OCCUPATIONAL THERAPY ASSESSMENT NOTE Patient Name: Aracelis Espinal Room/Bed: [place] [address] Admitting Diagnosis: Sepsis Past Medical History: Diagnosis Date Anemia Anxiety disorder Cataract Colon polyps Depression Dyslipidemia Thyroid disorder Ulcer of the stomach and intestine Subjective Pertinent Dx per Physician: 67 y.o. female with a PMH of: hypothyroidism, anxiety/depression, HLD, GERD, R popliteal DVT (07/01/18), b/l uteretral obstruction s/p b/l percutaneous nephrostomy tubes. She presented to [facility] on 08/14 in septic shock & non-draining L nephrostomy tube, suspecting urinary source. Replacement of bilateral nephrostomy tubes 08/15 Precautions: Standard;Falls;O2 Requirement (5L) Pain / Complaints: Patient has no c/o pain Objective Psychosocial Status: Willing and Cooperative to Participate Persons Present: Nursing Staff (intermittently) Home Living Type of Home: House Home Layout: Stairs to Enter w/ Rails;Able to Live on Main Level w/Bedrm/Bathrm Access Bathroom Shower / Tub: Walk-in Shower;Tub/Shower Unit Bathroom Toilet: Raised Prior Function Level Of Bland: Independent with ADLs and functional transfers; Independent with homemaking w/ ambulation Lives With: Alone Receives Help From: None Needed Vision Current Vision: Wears Glasses Only for Reading Ocular Range Of Motion: Within Normal Limits ADL's Where Assessed: Edge of Bed;Standing at Sink Grooming Assist: Minimal Assist Grooming Deficits: Steadying;Teeth Care LE Dressing Assist: Stand By Assist LE Dressing Deficits: Setup Functional Transfer Assist: Minimal Assist Functional Transfer Deficits: Toilet Transfer Activity Tolerance Endurance: 2/5 Tolerates 10-20 Minutes Exercise w/Multiple Rests Sitting Balance: 4+/5 Moves/Returns Trunkal Midpoint 1-2 Inches in Multiple Planes Comment: Patient required seated rest break with grooming while standing at sink , Heart rate increased to 124 and decreased with rest break. Cognition Overall Cognitive Status: WFL to Adequately Complete Self Care Tasks Safely Orientation: Alert & Oriented x4 UE AROM Overall BUE AROM WNL: Yes Coordination: Serial Opposition WNL for Rate, Rhythm, Placement Grasp: Bilateral Grasp Functional for Activity Edema RUE Edema: No Significant Edema LUE Edema: No Significant Edema Sensory Overall Sensory: Pt Perceives Pressure in Both UEs in Gross Exam UE Strength / Tone Overall Strength / Tone: WFL Able to Perform ADL Tasks R Bernadette: No Increase in Muscle Tone L Bernadette: No Increase in Muscle Tone Education Persons Educated: Patient Barriers To Learning: None Noted Teaching Methods: Verbal Instruction Patient Response: Verbalized Understanding Topics: Role of OT, Goals for Therapy Assessment Assessment: Decreased ADL Status;Decreased Endurance;Decreased Self-Care Trans Prognosis: Good;w/Cont OT s/p Acute Discharge;Pt Remains in ICU/Critical Care AM-PAC 6 Clicks Daily Activity Inpatient Putting on and taking off regular lower body clothes?: A Little Bathing (Including washing, rinsing, drying): A Lot Toileting, which includes using toilet, bedpan, or urinal: A Little Putting on and taking off regular upper body clothing: A Little Taking care of personal grooming such as brushing teeth: A Little Eating meals?: None Daily Activity Raw Score: 18 Standardized (t-scale) score: 38.66 CMS 0-100% Score: 46.65 CMS G Code Modifier: CK AM-PAC Daily Activity Functional Stage: -2.73-40 No Independent Tasks G-Codes: Self-care G8987 Current Status: 40-59% Impairment G8988 Goal Status: 20-39% Impairment Based on above evaluation and clinical judgment. Plan OT Frequency: 5x/week OT Plan for Next Visit: (Toileting tasks, increased independence with ADLs) ADL Goals Patient Will Perform Grooming: Standing at Sink;w/ Mod Independent Patient Will Perform LE Dressing: w/ Modified Independent;At Edge of Bed Functional Transfer Goals Pt Will Transfer To Toilet: Modified Independent OT Discharge Recommendations OT Discharge Recommendations: Inpatient Setting Equipment Recommendations: Too early to be determined Additional Information: Patient lives alone at baseline. Highest level of independence required to safely live alone. Therapist: Storm Rubalcava OT/Alex [id number] Date: 08/16/2018 * Marci Cha RN - 08/16/2018 10:02 AM CDT IR Progress Note Left chest tube placement reviewed with Dr. Franco, can be done with US. CXR 08/15 and 08/16, small to moderate left apical pneumo. Labs, meds, allergies okay. Marci Cha RN BSN * Volodymyr England APRN - 08/16/2018 6:58 AM CDT Formatting of this note may be different from the original. Critical Care Progress Note Aracelis Espinal Today's Date: 08/16/2018 Admission Date: 08/15/2018 LOS: 1 day Principal Problem: Septic shock (HCC) Active Problems: Anxiety Major depressive disorder with single episode, in remission (HCC) Gastroesophageal reflux disease without esophagitis Hypothyroidism due to acquired atrophy of thyroid Vitamin D deficiency Acute deep vein thrombosis (DVT) of distal end of right lower extremity (HCC) Obesity (BMI 30-39.9) Bilateral ureteral obstruction Pneumothorax, iatrogenic Assessment/Plan: Hospital Course: Aracelis Espinal is a 67 y.o. female with a PMH of: hypothyroidism, anxiety/ depression, HLD, GERD, R popliteal DVT (07/01/18), b/l uteretral obstruction s/p b/l percutaneous nephrostomy tubes. She presented to [facility] on in septic shock & non-draining L nephrostomy tube, suspecting urinary source. She was started on NE and then tx'd to on 08/15 as follows w/ [facility]. Has not required NE since presentation to . UC at OSH +enterobacter & continues on merrem. Urology following & recc IR replacement of both PCN ( done on 08/15). MEE now improving. L subclavian CVC placed by OSH and apical pneumothorax noted on admit CXR; plan for CT to be placed by IR today. NEURO: hx Anxiety, Depression - hold [employer] WORKER: clonazepam 1mg qd prn, norco 10/325 CV: Shock (resolved) - on presentation to OSH - reportedly received 4L IVF - started on NE there but did not require on admit to - echo 07/02/2018 - LVEF 60%, normal diastolic function, mild LVH, normal RV & valves - EKG - w/o ST changes - trop neg x2 - received 2L IVF w/ NiCom on 08/15 & was still responsive - HR 90s-100s & SBP 100s PULM: Pneumothorax - L subclavian CVC placed at OSH - CXR 08/15 - small-mod L pneumothorax - CXR 08/16 - stable L pneumothorax - NC at 6L --> for pneumo & not hypoxia - will ask IR to place pigtail CT - daily CXR GI: hx GERD - continue [employer] WORK[employer]: protonix Diarrhea - cdiff - Neg - has flexiseal RENAL: MEE on CKD - baseline Cr ~1.5 - d/t L PCN malfunction - briefly required HD in May - renal scan (OSH) 06/17 - 70+ function of L kidney & 20 or less function of R kidney - hold [employer]ER: lasix 40mg qd & torsemide 20mg qd - FeUrea 08/15 - 30; equivocal - Cr 2.06 -> 1.24 - IO: 3.3 / 1.9; UOP 1.6L Electrolyte Derrangement - K 3.4 & mag 1.8 - replace & follow BMP b/l Uteretral Obstruction - has b/l percutaneous nephrostomy tubes - saw Dr. Moseley w/ urology on 07/30 --> planning for cystoscopy w/ pyelograms - L perc tube - placed at OSH on 06/19 - R perc tube - placed by [facility] IR on 07/02 - on admit has b/l PCN but L is not draining - urology following --> recc IR replacement of both tubes; considering cysto - IR replaced R PCN & placed a new L PCN - both draining clear yellow urine this AM ENDO: hx Hypothyroidism - TSH 1.2 - continue [employer] WORK[employer]: synthroid 50mcg qd ID: Septic Shock UTI - WBC 11; afebrile - no prior resistant organisms - CXR 08/15 - no infiltrate - BC (OSH) 08/14 - NGx1d - BC 08/15 - NGTD - UC (OSH) 08/14 - >100k enterobacter; anticipate sensitivities on 08/17 ([facility] Micro lab: [phone]) - UA (R PCN was drawn at 0750) 08/15 - 3+ leuks, packed WBC, few bacteria - UC (b/l PCN) 08/15 - in process - cdiff 08/15 - Neg - merrem HEME: Provoked DVT - us 06/22 - no DVT - us 07/01 + R popliteal DVT - had subcapsular hematoma w/ L PCN placement on 06/19 - plan was for 3m of AC w/ eliquis at lower dose d/t bleeding risk - hold [employer] WORKER: eliquis 5mg bid --> continue to hold today w/ prior bleeding from PCN Prophylaxis Review: Lines: Central Line Tubes: b/l PCN tubes IVF: S/L Electrolytes: Reviewed and replaced as needed. Diet: Yes Insulin: No Urinary Catheter: No VTE ppx: held for procedure; SCDs GI ppx: protonix PT/OT: Yes Code status: Full Code Disposition: Remain in the MICU. Volodymyr England, [employer] Pulm/Critical Care Pager [phone] 08/16/2018 M2 team pager (2nd call/nights) [phone] __ Subjective: Aracelis Espinal is a 67 y.o. female who is resting in bed and overall feeling better than yesterday. Having some side pain. ROS: Denies: CP, SOB, cough, N/V, C/D and rash. Objective: Medications: Scheduled Meds: docusate (COLACE) capsule 100 mg 100 mg Oral BID ergocalciferol (VITAMIN D-2) capsule 50,000 Units 50,000 Units Oral levothyroxine (SYNTHROID) tablet 50 mcg 50 mcg Oral QDAY 30 min before breakfast magnesium sulfate 1 g/D5W 100 mL IVPB 1 g Intravenous Q1H X 2DO meropenem (MERREM) IVP 1 g 1 g Intravenous Q12H* nicotine (NICODERM CQ STEP 1) 21 mg/day patch 1 patch 1 patch Transdermal Q24H* nystatin (NYSTOP) topical powder Topical BID pantoprazole DR (PROTONIX) tablet 40 mg 40 mg Oral BID sodium chloride PF 0.9% syringe 10 mL 10 mL Intravenous BID Continuous Infusions: PRN and Respiratory Meds:acetaminophen Q6H PRN, carboxymethylcellulose PRN Vital Signs: Last Filed Vital Signs: 24 Hour Range BP: 102/76 (08/16 600) Temp: 36.9 C (98.5 F) (08/16 0400) Pulse: 96 (08/16 600) Respirations: 20 PER MINUTE (08/16 600) SpO2: 100 % (08/16 600) O2 Delivery: High Flow Nasal Cannula (08/16 600) SpO2 Pulse: 96 (08/16 600) BP: (97-124)/(60-84) Temp: [36.9 C (98.5 F)-37.9 C (100.2 F)] Pulse: [96-128] Respirations: [13 PER MINUTE-26 PER MINUTE] SpO2: [93 %-100 %] O2 Delivery: High Flow Nasal Cannula Vitals: 08/15/18 0430 Weight: 76 kg (167 lb 8.8 oz) Intake/Output Summary: (Last 24 hours) Intake/Output Summary (Last 24 hours) at 08/16/18 0658 Last data filed at 08/16/18 0400 Gross per 24 hour Intake 3490 ml Output 1878.5 ml Net 1611.5 ml Physical Exam: General: cooperative, no distress, appears stated age Head: Normocephalic, without obvious abnormality, atraumatic Eyes: Conjunctivae/corneas clear Mouth/throat: Moist mucous membranes Neck: Supple, symmetrical, trachea midline Lungs: Clear to auscultation bilaterally; no wheeze Heart: Regular rate and rhythm, S1, S2 normal, no murmur appreciated Abdomen: Soft, non-tender. Bowel sounds normal Back: b/l PCN in place, both w/ clear yellow urine Extremities: Extremities normal, atraumatic, no cyanosis, 1+ BLE edema Pulses: 2+ and symmetric, all extremities Skin: No rashes or lesions noted Neurologic: A&O Laboratory: LABS: Recent Labs 08/15/18 0455 08/15/18 1020 08/15/18 1640 08/16/18 0409 NA 134* 132* 135* 135* K 2.5* 3.4* 4.0 3.4* CL 99 99 104 105 CO2 25 25 22 22 GAP 10 8 9 8 BUN 38* 39* 36* 28* CR 2.06* 1.96* 1.76* 1.24* GLU 109* 118* 100 94 CA 7.3* 7.4* 7.6* 7.8* ALBUMIN 2.8* -- -- 2.6* MG 1.1* 2.3 2.0 1.8 PO4 2.5 -- -- 2.1 TSH 1.200 -- -- -- Recent Labs 08/15/18 0455 08/15/18 0650 08/15/18 1020 08/16/18 0409 WBC 15.8* -- -- 11.0 HGB 9.0* -- -- 8.8* HCT 26.9* -- -- 26.2* PLTCT 294 -- -- 291 INR 2.0* -- -- -- PTT 28.6 -- -- -- AST 13 -- -- 16 ALT 6* -- -- 7 ALKPHOS 67 -- -- 103 TNI 0.03 0.04 0.03 -- Estimated Creatinine Clearance: 45.1 mL/min (A) (based on SCr of 1.24 mg/dL (H)) . Vitals: 08/15/18 0430 Weight: 76 kg (167 lb 8.8 oz) No results for input(s): PHART, PO2ART in the last 72 hours. Invalid input(s): PC02A Radiology and Other Diagnostic Procedures Review: Reviewed Associated attestation - Michael Rose MD - 08/16/2018 12:37 PM CDT Formatting of this note may be different from the original. ATTESTATION I personally interviewed and examined the patient. I have reviewed the history , physical, impression and plan outlined by the Nurse Practitioner. The patient presents with (HPI) no overnight events, feeling much better, denies chest pain or shortness of breath, On examination there is an alert adult female in NAD, clear lung owens b/l, regular heart rhythm, soft abd with b/l PCN in place; on thoracic ultrasound, has lung sliding in the lateral aspect but not in the high anterior aspect of the left hemithorax, My impression is 67 y/o female admitted with sepsis of urinary origin and enlarging left pneumothorax after subclavian line placement at transferring facility, My plan is continue current antibiotics while awaiting culture data, d/c subclavian line today. IR anterior chest tube placement today. Place chest tube to -20 wall suction after return from procedure. Staff name: Michael Rose MD Date: 08/16/2018 * Addis Berrios, RN - 08/15/2018 11:03 PM CDT 1915: Report received and bedside safety check completed with day shift RN. All VSS per pt trends. Pt A&Ox4 and expresses no concerns at this time. 2000: Assessment completed; see doc flow sheets for details. Will continue to monitor. 0600: No other acute events to report. * Marvin Acosta, RN - 08/15/2018 12:40 PM CDT Pt transported back to UNIT 63 by this RN and Johanna, PROCESS IMPROVEMENT ANALYST. VSS, heart rate returning to baseline. Pt does report some back pain related to lying in prone position for IR procedure. Right nephrostomy tube exchanged, 8Fr; draining clear yellow urine. Left nephrostomy tube replaced with new tract, 8Fr; draining blood tinged urine at this time. Dressings CDI. Merepenum given during procedure, see eMAR for administration record. Bedrest four hours, may ambulate at 1630. Report given to ELADIO Spencer. * Kelsey Hook RN - 08/15/2018 11:45 AM CDT Sedation physician present in room. Recent vitals and patient condition reviewed between sedating physician and nurse. Reassessment completed. Determination made to proceed with planned sedation. * Leonie Darnell RN - 08/15/2018 10:08 AM CDT Interventional Radiology Progress Note Bilateral PCN exchange, requesting antegrade nephrostogram and to send left kidney urine for cultures. Pt with urosepsis. Left PCN with no output but noted brown thick drainage in bag. Discussed with Dr. Karimi. Pt is on broad antibiotic coverage at this time. Pt also last dosed with eliquis yesterday morning. Leonie Darnell RN * Volodymyr England APRN - 08/15/2018 6:29 AM CDT Formatting of this note may be different from the original. Critical Care Progress Note Aracelis Espinal Today's Date: 08/15/2018 Admission Date: 08/15/2018 LOS: 0 days Principal Problem: Septic shock (HCC) Active Problems: Anxiety Major depressive disorder with single episode, in remission (HCC) Gastroesophageal reflux disease without esophagitis Hypothyroidism due to acquired atrophy of thyroid Vitamin D deficiency Acute deep vein thrombosis (DVT) of distal end of right lower extremity (HCC) Obesity (BMI 30-39.9) Bilateral ureteral obstruction Assessment/Plan: Hospital Course: Aracelis Espinal is a 67 y.o. female with a PMH of: hypothyroidism, anxiety/ depression, HLD, GERD, R popliteal DVT (07/01/18), b/l uteretral obstruction s/p b/l percutaneous nephrostomy tubes. She presented to [facility] on in septic shock & non-draining L nephrostomy tube, suspecting urinary source. She was started on NE and then tx'd to [facility] as follows w/ [facility]. Has not required NE since presentation to . UC at OSH +GNR & have broadened abx to merrem. Urology following & plan for IR interrogation of b/l PCN. NEURO: hx Anxiety, Depression - hold [employer] WORKER: clonazepam 1mg qd prn, norco 10/325 CV: Shock (resolved) - on presentation to OSH - reportedly received 4L IVF - started on NE there but did not require on admit to - echo 07/02/2018 - LVEF 60%, normal diastolic function, mild LVH, normal RV & valves - EKG - w/o ST changes - trop neg x2 - HR 90s & SBP 110s - check NiCom w/ 500cc PULM: - RA Pneumothorax - CXR 08/15 - small-mod L pneumothorax - L subclavian CVC placed at OSH plan - start NC at 6L - repeat CXR at 1400 GI: hx GERD - continue [employer] WORKER: protonix - NPO for possible procedure RENAL: MEE on CKD - baseline Cr ~1.5 - d/t L PCN malfunction - briefly required HD in May - renal scan (OSH) 06/17 - 70+ function of L kidney & 20 or less function of R kidney - has b/l PCN but L is not draining - hold [employer] WORK[employer]: lasix 40mg qd & torsemide 20mg qd - Cr 2.06 - s/p 4L IVF at OSH - FeUrea 08/15 - 30; equivocal Electrolyte Derrangement - K 2.5 & mag 1.1 - replace & follow BMP b/l Uteretral Obstruction - has b/l percutaneous nephrostomy tubes, L placed on - saw Dr. Moseley w/ urology on 07/30 --> planning for cystoscopy w/ pyelograms - L perc tube - placed at OSH on 06/19 - R perc tube - placed by IR on 07/02 - urology consulted - will send to IR for b/l tube interrogation ENDO: hx Hypothyroidism - TSH 1.2 - continue [employer]: synthroid 50mcg qd ID: Septic Shock UTI - WBC 15.8; Tmax 37.9 - no prior resistant organisms - CXR 08/15 - no infiltrate - BC (OSH) 08/14 - NGx1d - BC 08/15 - ordered - UC (OSH) 08/14 - >100k GNR; likely not PSAE or ecoli ([phone]) - UA (R PCN was drawn at 0750) 08/15 - 3+ leuks, packed WBC, few bacteria - UC (R PCN) 08/15 - ordered - zosyn --> broaden to merrem to cover ESBL HEME: Provoked DVT - us 06/22 - no DVT - us 07/01 + R popliteal DVT - had subcapsular hematoma w/ L PCN placement on 06/19 - plan was for 3m of AC w/ eliquis at lower dose d/t bleeding risk - hold [employer]: eliquis 5mg bid --> w/ planned procedure Prophylaxis Review: Lines: Central Line Tubes: b/l PCN tubes IVF: S/L Electrolytes: Reviewed and replaced as needed. Diet: No Insulin: No Urinary Catheter: No VTE ppx: held for procedure; SCDs GI ppx: protonix PT/OT: Yes Code status: Full Code Disposition: Remain in the MICU. - Pt critically ill with the above diagnoses. I spent 65 minutes providing critical care services including: reviewing outside records and obtaining history from the patient/family members performing a physical examination serially reviewing laboratory, telemetry, hemodynamic, oximetry, and respiratory data reviewing radiographic images reviewing medications managing fluids/electrolytes, antibiotics, ICU prophylaxis, and mechanical ventilation developing the overall plan of care. Volodymyr England APRN Pulm/Critical Care Pager [phone] 08/15/2018 M2 team pager (2nd call/nights) [phone] __ Subjective: Aracelis Espinal is a 67 y.o. female who is resting in bed and feeling crummy overall, largely unchanged from presentation to OSH ED. ROS: Denies: CP, pain, SOB, cough, N/V, C/D and rash. Objective: Medications: Scheduled Meds: apixaban (ELIQUIS) tablet 5 mg 5 mg Oral BID DEXTROSE 5% IN WATER IV SOLP (Cabinet Override) NOW docusate (COLACE) capsule 100 mg 100 mg Oral BID ergocalciferol (VITAMIN D-2) capsule 50,000 Units 50,000 Units Oral levothyroxine (SYNTHROID) tablet 50 mcg 50 mcg Oral QDAY 30 min before breakfast magnesium sulfate 1 g/D5W 100 mL IVPB 1 g Intravenous Q1H X 3DO nicotine (NICODERM CQ STEP 1) 21 mg/day patch 1 patch 1 patch Transdermal Q24H* NOREPINEPHRINE BITARTRATE 1 MG/ML IV SOLN (Cabinet Override) NOW pantoprazole DR (PROTONIX) tablet 40 mg 40 mg Oral BID potassium chloride in water IVPB 10 mEq 10 mEq Intravenous Q1H X 4DO potassium chloride SR (K-DUR) tablet 60 mEq 60 mEq Oral ONCE Continuous Infusions: PRN and Respiratory Meds:acetaminophen Q6H PRN, carboxymethylcellulose PRN Vital Signs: Last Filed Vital Signs: 24 Hour Range BP: 98/62 (08/15 500) Temp: 36.9 C (98.4 F) (08/15 430) Pulse: 91 (08/15 500) Respirations: 23 PER MINUTE (08/15 500) SpO2: 97 % (08/15 500) O2 Delivery: None (Room Air) (08/15 500) SpO2 Pulse: 91 (08/15 500) Height: 162.6 cm (64") (08/15 430) BP: (98-113)/(62-92) Temp: [36.9 C (98.4 F)] Pulse: [91-98] Respirations: [19 PER MINUTE-23 PER MINUTE] SpO2: [93 %-97 %] O2 Delivery: None (Room Air) Vitals: 08/15/18429 Weight: 76 kg (167 lb 8.8 oz) Intake/Output Summary: (Last 24 hours) Intake/Output Summary (Last 24 hours) at 08/15/18 06 Last data filed at 08/15/18429 Gross per 24 hour Intake 0 ml Output 70 ml Net -70 ml Physical Exam: General: sleepy, cooperative, no distress, appears stated age Head: Normocephalic, without obvious abnormality, atraumatic Eyes: Conjunctivae/corneas clear Mouth/throat: Moist mucous membranes Neck: Supple, symmetrical, trachea midline Lungs: Clear to auscultation bilaterally; no wheeze Heart: Regular rate and rhythm, S1, S2 normal, no murmur appreciated Abdomen: Soft, non-tender. Bowel sounds normal Back: b/l PCN in place, R w/ clear yellow drainage, L w/ minimal brown thick Extremities: Extremities normal, atraumatic, no cyanosis, 1+ BLE edema Pulses: 2+ and symmetric, all extremities Skin: No rashes or lesions noted Neurologic: A&O Laboratory: LABS: Recent Labs 08/15/18 0455 NA 134* K 2.5* CL 99 CO2 25 GAP 10 BUN 38* CR 2.06* GLU 109* CA 7.3* ALBUMIN 2.8* MG 1.1* PO4 2.5 TSH 1.200 Recent Labs 08/15/18 0455 WBC 15.8* HGB 9.0* HCT 26.9* PLTCT 294 INR 2.0* PTT 28.6 AST 13 ALT 6* ALKPHOS 67 TNI 0.03 Estimated Creatinine Clearance: 27.2 mL/min (A) (based on SCr of 2.06 mg/dL (H)) . Vitals: 08/15/18 0430 Weight: 76 kg (167 lb 8.8 oz) No results for input(s): PHART, PO2ART in the last 72 hours. Invalid input(s): PC02A Radiology and Other Diagnostic Procedures Review: Reviewed * Jody Hernandez RN - 08/15/2018 6:09 AM CDT 0430: Pt arrived to unit. Tx from [facility]. Bedside safety check complete. Pt alert and oriented x4. VS stable, not requiring norepi at this time. MAP goal >[address] Mulligan. Left nephrostomy tube with brown, thick drainage and pt reports vaginal drainage. Team aware. Assessment completed, see doc flowsheets. Will continue to monitor. * Jody Hernandez RN - 08/15/2018 4:30 AM CDT Patient arrived to room 6306 via cart accompanied by EMS. Patient transferred to the bed with assistance. Bedside safety checks completed. Initial patient assessment completed, refer to flowsheet for details. Admission skin assessment completed by: Pressure Injury Present on Hospital Admission (within 24 hours): Yes 1. Occiput: No 2. Ear: No 3. Scapula: No 4. Spinous Process: No 5. Shoulder: No 6. Elbow: No 7. Iliac Crest: No 8. Sacrum/Coccyx: Yes 9. Ischial Tuberosity: No 10. Trochanter: No 11. Knee: No 12. Malleolus: No 13. Heel: Yes 14. Toes: No 15. Assessed for device associated injury Yes 16. Nursing Nutrition Assessment Completed Yes See Doc Flowsheet for additional wound details. INTERVENTIONS: Q2 turns, bilateral foam boots in this encounter H&P Notes * John Paul Caal DO - 08/16/2018 4:24 PM CDT Formatting of this note may be different from the original. Pre-Procedure History and Physical/Sedation Plan Procedure Date: 08/16/2018 Planned Procedure(s): Chest tube Indication: pneumothorax Chief Complaint/HPI: Aracelis Espinal is a 67 y.o. female with a history of pneumothorax who presents today for chest tube placement. Previous Anesthetic/Sedation History: Denies adverse events related to sedation /anesthesia. Physical Exam: Vital Signs: Last Filed In 24 Hours Vital Signs: 24 Hour Range BP: 118/70 (08/16 1600) Temp: 36.7 C (98 F) (08/16 1200) Pulse: 92 (08/16 1600) Respirations: 22 PER MINUTE (08/16 1600) SpO2: 100 % (08/16 1600) O2 Delivery: High Flow Nasal Cannula (08/16 1600) SpO2 Pulse: 92 (08/16 1600) BP: (93-121)/(60-77) Temp: [36.7 C (98 F)-37.3 C (99.2 F)] Pulse: [83-113] Respirations: [15 PER MINUTE-26 PER MINUTE] SpO2: [98 %-100 %] O2 Delivery: High Flow Nasal Cannula Intensity Pain Scale (Self Report): 3 (08/16/18 0800) General appearance: alert and no distress Neurologic: Grossly normal. Lungs: Non labored Heart: regular rate and rhythm Airway: airway assessment performed Mallampati I (soft palate, uvula, fauces, tonsillar pillars visible) Head and Neck: no abnormalities noted Mouth: no abnormalities noted NPO status: Acceptable Status: Not Anesthesia Classification: ASA III (A patient with a severe systemic disease that limits activity, but is not incapacitating) Sedation/Medication Plan: Conscious sedation Discussion/Reviews: Physician has discussed risks and alternatives of this type of sedation and above planned procedures with patient Lab/Radiology/Other Diagnostic Tests: Labs: Pertinent labs reviewed John Paul Caal DO Pager [phone] * Kan Brady MD - 08/15/2018 11:26 AM CDT Formatting of this note may be different from the original. Pre Procedure History and Physical/Sedation Plan Procedure Date: 08/15/2018 Planned Procedure(s): Exchange of bilateral PCNs Sedation/Medication Plan: Fentanyl and Midazolam Discussion/Reviews: Physician has discussed risks and alternatives of this type of sedation and above planned procedures with patient Chief Complaint: " Septic shock " Previous Anesthetic/Sedation History: 67 year old female with obstructive uropathy and indwelling bilateral PCN tubes. Concern for tube malfunction and infection. Request exchange of bilateral PCNs. Allergies: Codeine Medications: Scheduled Meds: docusate (COLACE) capsule 100 mg 100 mg Oral BID ergocalciferol (VITAMIN D-2) capsule 50,000 Units 50,000 Units Oral levothyroxine (SYNTHROID) tablet 50 mcg 50 mcg Oral QDAY 30 min before breakfast meropenem (MERREM) IVP 1 g 1 g Intravenous Q12H* nicotine (NICODERM CQ STEP 1) 21 mg/day patch 1 patch 1 patch Transdermal Q24H* pantoprazole DR (PROTONIX) tablet 40 mg 40 mg Oral BID sodium chloride 0.9 % infusion 500 mL Intravenous Bolus Continuous Infusions: PRN and Respiratory Meds:acetaminophen Q6H PRN, carboxymethylcellulose PRN Vital Signs: Last Filed Vital Signs: 24 Hour Range BP: 107/68 (08/15 1000) Temp: 37.9 C (100.2 F) (08/15 0800) Pulse: 100 (08/15 1000) Respirations: 23 PER MINUTE (08/15 1000) SpO2: 94 % (08/15 1000) O2 Delivery: High Flow Nasal Cannula (08/15 1000) SpO2 Pulse: 99 (08/15 1000) Height: 162.6 cm (64") (08/15 0430) BP: (98-116)/(62-92) Temp: [36.9 C (98.4 F)-37.9 C (100.2 F)] Pulse: [91-100] Respirations: [13 PER MINUTE-25 PER MINUTE] SpO2: [93 %-97 %] O2 Delivery: High Flow Nasal Cannula NPO Status: Airway: airway assessment performed Mallampati II (soft palate, uvula, fauces visible) Anesthesia Classification: ASA III (A patient with a severe systemic disease that limits activity, but is not incapacitating) Lab/Radiology/Other Diagnostic Tests Labs: Relevant labs reviewed I have examined the patient, and there are no significant changes in their condition, from the previous H&P performed on 08/15/2018. Kan Brady MD * Loan Sanford MD - 08/15/2018 3:43 AM CDT Formatting of this note may be different from the original. History and Physical Examination Name: Aracelis Espinal Birthday: 1950 Admission Date: 08/15/2018 LOS: 0 days Assessment/Plan: Principal Problem: Septic shock (HCC) Active Problems: Anxiety Major depressive disorder with single episode, in remission (HCC) Gastroesophageal reflux disease without esophagitis Hypothyroidism due to acquired atrophy of thyroid Vitamin D deficiency Acute deep vein thrombosis (DVT) of distal end of right lower extremity (HCC) Obesity (BMI 30-39.9) Bilateral ureteral obstruction Aracelis Espinal is a 67 y.o. female with a medical history significant for hypothyroidism, anxiety/depression, GERD, right popliteal DVT noted 07/01, history bilateral nephroureteral stent placement and bilateral percutaneous nephrostomy tube on 07/01/2018 admission for obstructive uropathy who presents as a transfer from [facility] for severe sepsis, evolving shock, related to UTI requiring norepinephrine temporarily with a malfunctioning nephrostomy tube. Neurologic: No acute issues Pulmonary: No acute issues Cardiovascular: No acute issues, last echo on 07/02/2018 with normal EF, mild LVH, and no abnormal structural abnormalities Renal: Acute on CKD Baseline creatinine 1.44 at discharge from on 07/08 At OSH creatinine 2.35, may be related to septic shock vs obstructive Plan Will send urine lytes Holding home Lasix and torsemide Obstructive uropathy with bilateral hydronephrosis Nephrostomy tube malfunction S/p bilateral ureteral stent placement (end of May/2018) and left nephrostomy tube placement (06/19/2018) at [facility] S/p right nephrostomy tube placement by IR on 07/02/2018 at S/p stent removal on 08/03/2018 Plan Urology consulted Hypokalemia K 2.5 at the OSH Plan Recheck BMP GI/Nutrition: Gastritis/GERD - continue Protonix, NPO for potential procedure Infectious Disease: Sever sepsis Evolving shock, likely related to urinary tract infection Patient met 2/4 SIRS (leukocytosis 18.9 and fever 102.5) with significant hypotension requiring pressors and lactic acid of 2.3 UA at the OSH with 50-100 WBC, leukocytes 3, negative nitrite, large amount of bacteria, amorphous urate Plan Will get UA, cultures urine/blood, lactate Will start Zosyn Will consult urology Consider CT A/P Hematology/Oncology: RLE popliteal DVT - discovered 07/01/2018, hold apixaban, potentially holding for procedure Endocrine: Hypothyroidism - continue home Synthroid Vitamin D deficiency - continue vitamin D Prophylaxis: Holding apixaban Code Status: Full code Disposition: admit to medical ICU Patient seen and discussed with ICU attending. Loan Sanford MD (Pager: [phone]) History of Present Illness: Aracelis Espinal is a 67 y.o. female with a medical history significant for hypothyroidism, anxiety/depression, GERD, right popliteal DVT noted 07/01, history bilateral nephroureteral stent placement and bilateral percutaneous nephrostomy tube on 07/01/2018 admission for obstructive uropathy who presents as a transfer from [facility] for septic shock requiring norepinephrine with a malfunctioning nephrostomy tube. Patient presented to [facility] ED with fevers, chills and found to have significant leukocytosis. There patient given fluids and cefepime. KUB at OSH showing well seated nephrostomy tube, however, left tube is leaking and not flushing well. Patient reports that she has been feeling worse since returning from Dr. Moseley's urology clinic 2 weeks ago. That night she reports nausea and vomiting. Patient reports increased dark substance in the left nephrostomy tube. She is still making minimal urine. Her home health nurse came and checked up on her yesterday and discovered her to have abnormal vital signs and recommended ER evaluation. Patient has been having fevers and chill. She has been more debilitated since discharge from the hospital last time and after her last visit with Dr. Moseley in urology. At the OSH patient found to have severe sepsis with evolving shock (leukocytosis , tachycardia, fever, lactic acidosis). Patient received 4L of IVF and started on levophed. Transferred to under recommendation of urology. Upon arrival, without levophed doing well with BP. Review of Systems Constitution: Positive for chills, decreased appetite, fever and weight loss. HENT: Negative for sore throat and tinnitus. Eyes: Negative. Cardiovascular: Negative for chest pain, irregular heartbeat and palpitations. Respiratory: Negative for cough and shortness of breath. Endocrine: Positive for cold intolerance. Negative for heat intolerance. Hematologic/Lymphatic: Bruises/bleeds easily. Skin: Negative. Musculoskeletal: Negative. Gastrointestinal: Positive for abdominal pain, nausea and vomiting. Negative for change in bowel habit, hematemesis, hematochezia and melena. Genitourinary: Positive for hematuria. Negative for dysuria. Neurological: Negative for focal weakness, numbness, paresthesias, seizures, sensory change and tremors. Psychiatric/Behavioral: Positive for depression. Negative for suicidal ideas. Allergic/Immunologic: Negative. Past Medical History: Diagnosis Date Anemia Anxiety disorder Cataract Colon polyps Depression Dyslipidemia Thyroid disorder Ulcer of the stomach and intestine Past Surgical History: Procedure Laterality Date HX HYSTERECTOMY 2001 HX CATARACT REMOVAL Bilateral 01/2018 BACK SURGERY 1979; 1998 BUNIONECTOMY HX APPENDECTOMY HX CHOLECYSTECTOMY Social History Social History Marital status: Single [...] Age of Onset Cancer Mother Cancer Sister Allergies: Codeine Scheduled Meds:Continuous Infusions: PRN and Respiratory Meds: Vital Signs: Last Filed Vital Signs: 24 Hour Range BP: 98/62 (08/15 500) Temp: 36.9 C (98.4 F) (08/15 430) Pulse: 91 (08/15 500) Respirations: 23 PER MINUTE (08/15 500) SpO2: 97 % (08/15 500) O2 Delivery: None (Room Air) (08/15 500) SpO2 Pulse: 91 (08/15 500) Height: 162.6 cm (64") (08/15 430) BP: (98-113)/(62-92) Temp: [36.9 C (98.4 F)] Pulse: [91-98] Respirations: [19 PER MINUTE-23 PER MINUTE] SpO2: [93 %-97 %] O2 Delivery: None (Room Air) Vitals: 08/15/18 0430 Weight: 76 kg (167 lb 8.8 oz) Physical Exam: Constitutional: 67 y.o. female awake and oriented x4, patient in moderate distress, appearing tired Head: Normocephalic, atraumatic Eyes: Extra-occular muscles intact, perrla, clear sclera ENT: Nose midline without drainage, neck supple without tracheal deviation, oral mucous membrane dry Cardiovascular: Regular rate and rhythm, normal S1 and S2, no murmur /rub/gallop Pulmonary: Clear to auscultation bilaterally, no wheezes or rales Abdominal: Soft, non-tender, non-distended (baseline habitus), bowel sounds 4+, b/l nephrostomy with dressing intact Dermatologic: No rashes or bruises, good turgor, poor turgor Neurological: Cranial nerves II-XII intact, no gross focal neurological deficits Musculoskeletal: Moves all extremities well Extremities: 1-2 pitting edema, pulses present b/l Psych: Appropriate mood and affect Lab/Radiology/Other Diagnostic Tests: 24-hour labs: Results for orders placed or performed during the hospital encounter of (from the past 24 hour(s)) CBC AND DIFF Collection Time: 08/15/18 4:55 AM Result Value Ref Range White Blood Cells 15.8 (H) 4.5 - 11.0 K/UL RBC 3.16 (L) 4.0 - 5.0 M/UL Hemoglobin 9.0 (L) 12.0 - 15.0 GM/DL Hematocrit 26.9 (L) 36 - 45 % MCV 84.9 80 - 100 FL MCH 28.4 26 - 34 PG MCHC 33.5 32.0 - 36.0 G/DL RDW 15.6 (H) 11 - 15 % Platelet Count 294 150 - 400 K/UL MPV 7.8 7 - 11 FL Neutrophils 88 (H) 41 - 77 % Lymphocytes 7 (L) 24 - 44 % Monocytes 5 4 - 12 % Eosinophils 0 0 - 5 % Basophils 0 0 - 2 % Absolute Neutrophil Count 13.90 (H) 1.8 - 7.0 K/UL Absolute Lymph Count 1.10 1.0 - 4.8 K/UL Absolute Monocyte Count 0.70 0 - 0.80 K/UL Absolute Eosinophil Count 0.00 0 - 0.45 K/UL Absolute Basophil Count 0.10 0 - 0.20 K/UL PROTIME INR (PT) Collection Time: 08/15/18 4:55 AM Result Value Ref Range INR 2.0 (H) 0.8 - 1.2 PTT (APTT) Collection Time: 08/15/18 4:55 AM Result Value Ref Range APTT 28.6 20.0 - 36.0 SEC COMPREHENSIVE METABOLIC PANEL Collection Time: 08/15/18 4:55 AM Result Value Ref Range Sodium 134 (L) 137 - 147 MMOL/L Potassium 2.5 (LL) 3.5 - 5.1 MMOL/L Chloride 99 98 - 110 MMOL/L Glucose 109 (H) 70 - 100 MG/DL Blood Urea Nitrogen 38 (H) 7 - 25 MG/DL Creatinine 2.06 (H) 0.4 - 1.00 MG/DL Calcium 7.3 (L) 8.5 - 10.6 MG/DL Total Protein 5.6 (L) 6.0 - 8.0 G/DL Total Bilirubin 0.3 0.3 - 1.2 MG/DL Albumin 2.8 (L) 3.5 - 5.0 G/DL Alk Phosphatase 67 25 - 110 U/L AST (SGOT) 13 7 - 40 U/L CO2 25 21 - 30 MMOL/L ALT (SGPT) 6 (L) 7 - 56 U/L Anion Gap 10 3 - 12 eGFR Non 24 (L) >60 mL/min eGFR 29 (L) >60 mL/min LACTIC ACID (BG - RAPID LACTATE) Collection Time: 08/15/18 4:55 AM Result Value Ref Range Lactic Acid,BG 1.0 0.5 - 2.0 MMOL/L MAGNESIUM Collection Time: 08/15/18 4:55 AM Result Value Ref Range Magnesium 1.1 (L) 1.6 - 2.6 mg/dL BNP (B-TYPE NATRIURETIC PEPTI) Collection Time: 08/15/18 4:55 AM Result Value Ref Range B Type Natriuretic Peptide 129.0 (H) 0 - 100 PG/ML TSH WITH FREE T4 REFLEX Collection Time: 08/15/18 4:55 AM Result Value Ref Range TSH 1.200 0.35 - 5.00 MCU/ML PHOSPHORUS Collection Time: 08/15/18 4:55 AM Result Value Ref Range Phosphorus 2.5 2.0 - 4.5 MG/DL Pertinent radiology reviewed. Associated attestation - Michael Rose MD - 08/15/2018 1:25 PM CDT Formatting of this note may be different from the original. MICU STAFF NOTE This note is an attestation for the resident/fellow note dated today. I have seen, personally fully evaluated, and discussed patient with the Medical ICU team. I agree with the objective findings and agree with the plan of care as documented by the resident with the exceptions noted. The patient is critically ill with the conditions listed below: Principal Problem: Septic shock (HCC) Active Problems: Anxiety Major depressive disorder with single episode, in remission (HCC) Gastroesophageal reflux disease without esophagitis Hypothyroidism due to acquired atrophy of thyroid Vitamin D deficiency Acute deep vein thrombosis (DVT) of distal end of right lower extremity (HCC) Obesity (BMI 30-39.9) Bilateral ureteral obstruction Pneumothorax, iatrogenic I spent 75 minutes (excluding time spent performing or supervising any procedures) providing and personally directing critical care services including: Systems and physical examination Review and management of ICU prophylaxis and core measures Review of laboratory data Review of telemetry data Review of imaging studies Review of medications Fluid and electrolyte management Hemodynamic monitoring and management Performance of bedside ultrasound Patient admitted in transfer overnight with septic shock of urinary source due to infected percutaneous nephrostomy tubes. Also noted this morning to have a pneumothorax on left as a consequence of the subclavian central line placed at transferring facility. Plan of care includes IV meropenem while awaiting culture data. Perform NICOM and volume resuscitate as indicated. IR consult for repositioning and/or replacement of PCN tubes as indicated and urology consult. Regarding this pneumothorax, appears small and CXR and bedisde ultrasound by myself reveals lung sliding on the lateral aspect of the left hemithorax, with absence of lung sliding only in the apix of the left lung. Plan to place on supplemental oxygen and monitor. Start diet; plan to resume apixiban in next 24 -48 hrs given recent DVT. Staff name: Michael Rose MD Date: 08/15/2018 in this encounter Consult Notes * Yonis Bean MD - 08/15/2018 6:19 PM CDT Associated Order(s): CONSULT UROLOGY PHYSICIAN Formatting of this note may be different from the original. [facility] Consult 08/15/2018 Patient: Aracelis Espinal Admission Date: 08/15/2018, LOS: 0 days Admission Diagnosis: Sepsis (HCC) [A41.9] Septic shock (HCC) [A41.9, R65.21] Date of Service: August 15, 2018 Reason for Consult: "Obstructive uropathy with malfunctioning left nephrostomy tube, please recommend further workup and mgmt" Referring Provider: Michael Rose MD Attending Surgeon: Perry Moseley MD Consult Performed by: Yonis Bean MD ASSESSMENT: 67 y.o. female with past medical history significant for bilateral ureteral strictures status post bilateral nephrostomy tube placement 07/01/18, hypothyroidism, anxiety, depression, GERD, with sepsis secondary to UTI in the setting of bilateral ureteral obstruction and malfunctioning nephrostomy tube(s) . PLAN: Interventional radiology interrogation/replacement of nephrostomy tubes, as has been completed at the time of this note Continue to trend creatinine Patient scheduled for cystoscopy and bilateral retrograde pyelograms and antegrade nephrostogram on 08/23/[address] Moseley for further evaluation of ureteral stricture location and length bilaterally We will plan on moving forward with this operative procedure pending improvement in clinical picture Urology to sign off, please call with questions Discussed with staff surgeon, Dr. Moseley. Thank you for consulting Urology. Yonis Bean MD Urology PGY-2 Please page Urology information systems manager with any questions __ HPI: Aracelis Espinal is a 67 y.o. female with past medical history significant for bilateral ureteral strictures status post bilateral nephrostomy tube placement 07/01/18, hypothyroidism, anxiety, depression, GERD is currently admitted to the medical ICU for management of sepsis and shock requiring pressors at outside facility prior to transfer. Her left nephrostomy tube has been malfunctioning and has had essentially 0 output over the last few days. Her right nephrostomy tube has been draining yellow urine, but has also had decreased output. She has noticed increased saturation near her left nephrostomy tube dressing. She has not been urinating per urethra. She underwent interventional radiology interrogation of both nephrostomy tubes today. The right ostomy tube was exchanged in routine fashion. The left tube was found to be outside of the renal parenchyma and a new nephrostomy tube was placed through a new tract into the lower pole. Unfortunately no images were obtained of the ureter during nephrostogram. Past Medical History: Diagnosis Date Anemia Anxiety disorder Cataract Colon polyps Depression Dyslipidemia Thyroid disorder Ulcer of the stomach and intestine Past Surgical History: Procedure Laterality Date HX HYSTERECTOMY 2001 HX CATARACT REMOVAL Bilateral 01/2018 BACK SURGERY 1979; 1998 BUNIONECTOMY HX APPENDECTOMY HX CHOLECYSTECTOMY Medications: Scheduled Meds: docusate (COLACE) capsule 100 mg 100 mg Oral BID ergocalciferol (VITAMIN D-2) capsule 50,000 Units 50,000 Units Oral levothyroxine (SYNTHROID) tablet 50 mcg 50 mcg Oral QDAY 30 min before breakfast meropenem (MERREM) IVP 1 g 1 g Intravenous Q12H* nicotine (NICODERM CQ STEP 1) 21 mg/day patch 1 patch 1 patch Transdermal Q24H* pantoprazole DR (PROTONIX) tablet 40 mg 40 mg Oral BID sodium chloride PF 0.9% syringe 10 mL 10 mL Intravenous BID Continuous Infusions: PRN and Respiratory Meds:acetaminophen Q6H PRN, carboxymethylcellulose PRN Allergies: Codeine Social History Social History Marital [...] Hours Vital Signs: 24 Hour Range BP: 121/77 (08/15 1700) Temp: 37.3 C (99.2 F) (08/15 1600) Pulse: 109 (08/15 1700) Respirations: 23 PER MINUTE (08/15 1700) SpO2: 100 % (08/15 1700) O2 Delivery: High Flow Nasal Cannula (08/15 1700) SpO2 Pulse: 109 (08/15 1700) Height: 162.6 cm (64") (08/15 0430) BP: (98-124)/(62-92) Temp: [36.9 C (98.4 F)-37.9 C (100.2 F)] Pulse: [91-128] Respirations: [13 PER MINUTE-25 PER MINUTE] SpO2: [93 %-100 %] O2 Delivery: High Flow Nasal Cannula Intake/Output: Intake/Output Summary (Last 24 hours) at 08/15/18 1819 Last data filed at 08/15/18 1500 Gross per 24 hour Intake 2290 ml Output 533.5 ml Net 1756.5 ml Physical Exam: General: Alert, oriented, cooperative, no distress Head: Normocephalic, without obvious abnormality, atraumatic Eyes: EOMI, no scleral icterus Lungs: Unlabored Heart: tachycardic Abdomen: Soft, non-tender, non-distended. : Left nephrostomy tube with scant red/brown drainage. Left nephrostomy tube with minimal amount of cloudy appearing yellow urine. Extremity: No clubbing, cyanosis, or edema Neurologic: Grossly intact. ROS: A complete review of systems was obtained and was negative except for the symptoms reviewed above. Lab/Radiology/Other Diagnostic Tests: Recent Labs 08/15/18 0455 08/15/18 1020 08/15/18 1640 HGB 9.0* -- -- HCT 26.9* -- -- WBC 15.8* -- -- PLTCT 294 -- -- NA 134* 132* 135* K 2.5* 3.4* 4.0 CL 99 99 104 CO2 25 25 22 BUN 38* 39* 36* CR 2.06* 1.96* 1.76* GLU 109* 118* 100 CA 7.3* 7.4* 7.6* MG 1.1* 2.3 2.0 PO4 2.5 -- -- ALBUMIN 2.8* -- -- TOTPROT 5.6* -- -- TOTBILI 0.3 -- -- AST 13 -- -- ALT 6* -- -- ALKPHOS 67 -- -- INR 2.0* -- -- PTT 28.6 -- -- Glucose: 100 (08/15/18 1640) in this encounter Miscellaneous Notes * Case Mgmt DC Plan - Agnes Bryant RN - 08/19/2018 3:37 PM CDT Formatting of this note may be different from the original. Case Management Progress Note NAME:Aracelis Espinal : AGE: 67 y.o. ADMISSION DATE: 08/15/2018 DAYS ADMITTED: LOS: 4 days Todays Date: 08/19/2018 Faxed signed orders and AVS to [facility] and Dr. Jeny Garcia. Spoke with Magalis at [facility] and they will see patient tomorrow. Walker was delivered to room. Patient ready for discharge from needs. Interventions ? Support ? Info or Referral ? Discharge Planning ? Medication Needs ? Financial ? Legal ? Other Disposition ? Expected Discharge Date Expected Discharge Date: 08/19/18 ? Transportation Does the patient need discharge transport arranged?: No Transportation Name, Phone and Availability #1: Kimber Leggett [phone] Does the patient use Medicaid Transportation?: No ? Next Level of Care (Acute Psych discharges only) ? Discharge Disposition Durable Medical Equipment No service has been selected for the patient. Destination No service has been selected for the patient. Home Care No service has been selected for the patient. Dialysis/Infusion No service has been selected for the patient. Agnes Bryant RN, BSN Nurse Sqe [phone] or [phone] * Case Mgmt DC Plan - Viviana Marin - 08/19/2018 12:08 PM CDT ELECTRICAL MAINTENANCE MAN Note: Delivered Standard Roller Walker to pt's bedside, per request from Agnes Bryant [facility]*[id number]. Viviana Marin Life Coach . * Critical Results - Sherie Real RN - 08/19/2018 9:41 AM CDT Critical result or procedure called (document test and value, and read back): Positive culture of Gram negative rods from one bottle drawn at [facility] /WIND TURBINE PERFORMANCE ENGINEER Notified: [id number] MD/WIND TURBINE PERFORMANCE ENGINEER Name: Cleo MOROCHO/DAGO Response/Orders Given: Will pass along to DEBORAH Holguin * Transfer - Xiomara Pat APRN - 08/18/2018 11:12 AM CDT In-Hospital Transfer Note Admission Diagnosis: UTI, non-draining L perc nephrostomy tube Admission Date: 08/15/2018 Active Hospital Problem List: Principal Problem: Septic shock ([facility]) Active Problems: Anxiety Major depressive disorder with single episode, in remission ([facility]) Gastroesophageal reflux disease without esophagitis Hypothyroidism due to acquired atrophy of thyroid Vitamin D deficiency Acute deep vein thrombosis (DVT) of distal end of right lower extremity (HCC) Obesity (BMI 30-39.9) Bilateral ureteral obstruction Pneumothorax, iatrogenic Hospital Course: 67 y/o Fw/PMH hypothyroidism, anxiety/depression, HLD, GERD, R popliteal DVT (07/01/18), b/l uteretral obstruction s/p b/l percutaneous nephrostomy tubes. Presented to [facility] 08/14 in septic shock &non-draining L nephrostomy tube. Started on NE &txd to on 08/15 as follows w/ [facility]. Did not required NE since presentation to . Urine cxat OSH +enterobacter & E faecalis; urine cx here at [facility] +E faecalis &klebsiella ->on levaquin. Urology following &rec IR replacement of both PCN (done on 08/15). MEE now improving. Had L subclavian CVC placed by OSH c/bapical pneumothorax noted on admit CXR - underwent chest tube placement 08/16 in IR, CT removed 08/18. Tolerating room air. Stable to tx to the floor. 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 Pt lives 3 hours away and if urology still plans on procedure Thursday 08/23 want to ensure she doesn't need any pre-op care before she discharges Activity/Weight bearing status: - No restrictions Nutrition: - Cardiac diet Discharge Plan: - Likely home once early this week. She lives alone and need to ensure she can ambulate & care for herself. PT/OT to see her tomorrow to give recs. Chelsie Pat [facility] Pulmonary Critical Care Pager [phone] pager [phone] * Care Plan - Parveen Michaud RN - 08/17/2018 8:41 AM CDT Problem: Pain Goal: Management of pain Outcome: Goal Ongoing Tylenol PRN and scheduled Lidocaine patches Problem: Respiratory Impairment (Non-Ventilated Patient) Goal: Effective gas exchange Outcome: Goal Ongoing The patient is currently on RA with her left CT to continuous wall suction @ - 20mmHg Problem: Skin Integrity Goal: Healing of skin (Pressure Ulcer) Outcome: Goal Achieved Date Met: 08/17/18 N/A - the patient does not have a pressure ulcer Problem: Falls, High Risk of Goal: Absence of falls-Adult Patient Outcome: Goal Ongoing Call light within reach, bed alarm on, bed in the lowest position, yellow non- skid socks on BLE, fall risk bracelet on, patient reminded not to get OOB without staff present * Care Plan - Ebony Paul RN - 08/16/2018 10:46 PM CDT Problem: Falls, High Risk of Goal: Absence of falls-Adult Patient Outcome: Goal Ongoing Fall bundle in place * Care Plan - Ebony Paul RN - 08/16/2018 10:46 PM CDT Problem: Infection, Risk of, Central Venous Catheter-Associated Bloodstream Infection Goal: Absence of CVC Associated Bloodstream infection Outcome: Goal Achieved Date Met: 08/16/18 Catheter no longer present Problem: Discharge Planning Goal: Knowledge regarding plan of care Outcome: Goal Ongoing Reviewed plan of care with patient and answered patient's questions Problem: Pain Goal: Management of pain Outcome: Goal Ongoing Pain assessment every 2- 4 hours and PRN, discussed medications and nonpharmacological interventions Problem: Respiratory Impairment (Non-Ventilated Patient) Goal: Effective gas exchange Outcome: Goal Ongoing Oxygen saturation greater than 92% on room air Problem: Skin Integrity Goal: Skin integrity intact Outcome: Goal Ongoing Patient turns self, encouraged repositioning every 2 hours and PRN Goal: Healing of skin (Pressure Ulcer) Outcome: Goal Ongoing Patient refusing offloading foam boots, provided education on healing and preventing of further skin breakdown, heels floating above mattress on pillow * Procedures (Immed Post or Bedside) - John Paul Caal DO - 08/16/2018 4:42 PM CDT Immediate Post Procedure Note Date: 08/16/2018 Attending Physician: Josef Philip MD Performing Provider: John Paul Caal DO Consent: Consent obtained from patient. Time out performed: Consent obtained, correct patient verified, correct procedure verified, correct site verified, patient marked as necessary. Indications: pneumothorax Anesthesia: Conscious Sedation Procedure(s): Left chest tube placement Findings: 8 chinese chest tube placed. Large volume free air aspirated. See PACS dictation for additional description. Estimated Blood Loss: None/Negligible Specimen(s) Removed/Disposition: None Complications: None Patient Tolerated Procedure: Well Post-Procedure Condition: stable John Paul Caal DO Pager [phone] * Care Plan - Storm Rubalcava OT - 08/16/2018 11:03 AM CDT Problem: Self-Care Deficit Goal: Maximize ADL functioning Outcome: Goal Ongoing Maximize ADL independence * Care Plan - Addis Berrios RN - 08/15/2018 11:09 PM CDT Problem: Infection, Risk of Goal: Knowledge of Infection Control Procedures Outcome: Goal Ongoing Discussed C.Diff precautions with pt; explained importance of handwashing. Problem: Discharge Planning Goal: Knowledge regarding plan of care Outcome: Goal Ongoing Plan of care discussed with pt. Problem: Respiratory Impairment (Non-Ventilated Patient) Goal: Effective gas exchange Outcome: Goal Ongoing Spo2 @ 100% on 6 L NC; not titrating O2 this shift per orders. Problem: Skin Integrity Goal: Skin integrity intact Outcome: Goal Ongoing Q2 turns & moisture management implemented. * Procedures (Immed Post or Bedside) - Ketan Wills MD - 08/15/2018 12:27 PM CDT Immediate Post Procedure Note Date: 08/15/2018 Attending Physician: Dr. Karimi Performing Provider: Ketan Wills MD Consent: Consent obtained from patient. Time out performed: Consent obtained, correct patient verified, correct procedure verified, correct site verified, patient marked as necessary. Pre/Post Procedure Diagnosis: Bilateral ureteral obstruction Indications: Malpositioned PCN tubes Anesthesia: Conscious Sedation Procedure(s): Right PCN exchange and left PCN placement Findings: Routine exchange of 8Fr right PCN tube. Left PCN was found to be pulled out of renal parenchyma and a wire was unable to be passed through old tract, therefore a new 8Fr PCN was placed in a low pole. Estimated Blood Loss: None/Negligible Specimen(s) Removed/Disposition: Yes, sent to pathology Complications: None Patient Tolerated Procedure: Well Post-Procedure Condition: improved Ketan Wills MD Pager [phone] * Case Mgmt DC Plan - Agnes Bryant RN - 08/15/2018 9:54 AM CDT Formatting of this note may be different from the original. Case Management Admission Assessment NAME:Aracelis Espinal : AGE: 67 y.o. ADMISSION DATE: 08/15/2018 DAYS ADMITTED: LOS: 0 days Todays Date: 08/15/2018 Source of Information: This NCM introduced self and explained role of CM. Patient resting in bed and able to answer all questions. Plan Plan: CM Assessment, Assist PRN with SW/NCM Services, Discharge Planning for Home Anticipated Infectious work up Consult IR-drain replacement Consult PT/OT Consult Urology DC planning on going Continue ICU care Interventions ? Support Patient lives at home alone and was independent prior to admission. ? Info or Referral Spoke with Mag[facility] and patient is current and they will need LEXIE orders at discharge. Neph supplies are supplied by . ? Discharge Planning ? Medication Needs ? Financial ? Legal ? Other Disposition ? Expected Discharge Date Expected Discharge Date: 08/19/18 ? Transportation Does the patient need discharge transport arranged?: No Transportation Name, Phone and Availability #1: Kimber Leggett [phone] Does the patient use Medicaid Transportation?: No ? Next Level of Care (Acute Psych discharges only) ? Discharge Disposition Durable Medical Equipment No service has been selected for the patient. [facility] Destination No service has been selected for the patient. [facility] Home Care No service has been selected for the patient. [facility] Dialysis/Infusion No service has been selected for the patient. Patient Address/Phone [address] [facility] [phone] (home) Emergency Contact Extended Emergency Contact Information Primary Emergency Contact: Kimber Perez [facility] Relation: [facility] Directive Transportation Does the patient need discharge transport arranged?: No Transportation Name, Phone and Availability #1: Kimber Leggett [phone] Does the patient use Medicaid Transportation?: No Expected Discharge Date Expected Discharge Date: 08/19/18 Living Situation Prior to Admission ? Living Arrangements Type of Residence: Home, independent Living Arrangements: Alone Bathroom Shower / Tub: Tub/Shower Unit How many levels in the residence?: 2 Can patient live on one level if needed?: Yes Does residence have entry and/or side stairs?: Yes Assistance needed prior to admit or anticipated on discharge: Yes Who provides assistance or could if needed?: HH and Sister Are they in good health?: Yes Can support system provide 24/7 care if needed?: Maybe ? Level of Function Prior level of function: Independent ? Cognitive Abilities Cognitive Abilities: Alert and Oriented, Participates in decision making Financial Resources ? Coverage Primary Insurance: Medicare Secondary Insurance: Medicare Supplement Additional Coverage: RX ? Source of Income Source Of Income: Employed ? Financial Assistance Needed? no Psychosocial Needs ? Mental Health Mental Health History: No ? Substance Use History ? Other no Current/Previous Services ? PCP Jeny Garcia, , ? Pharmacy [address] - [address] [address] [address] [facility] [address] ? Durable Medical Equipment Durable Medical Equipment at home: (Denies) ? Home Health Receiving home health: Yes Agency name: [facility] [phone] Would patient use this agency again?: Yes ? Hemodialysis or Peritoneal Dialysis Undergoing hemodialysis or peritoneal dialysis: No ? Tube/Enteral Feeds Receive tube/enteral feeds: No ? Infusion Receive infusions: No ? Private Duty Private duty help used: No ? Home and Community Based Services Home and community based services: No ? Trent White Trent White: N/A ? Hospice Hospice: No ? Outpatient Therapy PT: No OT: No BI TRI OPERATOR: No ? Prison Facility/Detention SNF: No NH: No ? Inpatient Rehab IPR: No ? Long-Term Acute Care Hospital LTACH: No ? Acute Hospital Stay Acute Hospital Stay: Yes Was patient's stay within the last 30 days?: No When did patient receive care?: 07/01/18 Name of hospital: [facility]AI[facility] Bryant RN, BSN Nurse Sqe [phone] or [phone] * Critical Results - Jody Hernandez RN - 08/15/2018 6:14 AM CDT Critical result or procedure called (document test and value, and read back): Potassium 2.5 Time MD/WIND TURBINE PERFORMANCE ENGINEER Notified: 0615 MD/WIND TURBINE PERFORMANCE ENGINEER Name: MD/WIND TURBINE PERFORMANCE ENGINEER Response/Orders Given: Will place orders * Advanced Care Planning/Resuscitation Status - Loan Sanford MD - 08/15/2018 5: 24 AM CDT Advance Care Planning/Resuscitation Status Conversation Individuals present for advance care planning conversation: resident/fellow physician, medical student and patient Pertinent details of conversation (including direct quotes from patient or surrogate): full code, no ventilator long-term; mike allai sister would be surrogate decision maker Outcome of conversation: Full Code Documents completed as a result of this conversation: None Other documents present, which outline patient/surrogate wishes: None in this encounter Plan of Treatment Not on fileas of this encounter Procedures Procedure Name Priority Date/Time Associated Diagnosis Comments TELEMETRY STRIPS-SCAN 08/20/2018 Results for this 12:27 [...] results section. in this encounter Results * TELEMETRY STRIPS-SCAN (08/20/2018 12:27 PM) Narrative Performed At Ordered by an unspecified provider. * CHEST SINGLE VIEW (08/19/2018 9:11 AM) Impressions Performed At 1. Removal of left-sided chest tube without pneumothorax. [facility] 2. Small pleural effusions with basal atelectasis. Finalized by Seferino Herring M.D. on 08/19/2018 9:25 AM. Dictated by Seferino Herring M.D. on 08/19/2018 9:23 AM. Narrative Performed At CHEST SINGLE VIEW [facility] INDICATION: post chest tube removal evaluating for right pneumothorax COMPARISON STUDY: August 18, 2018. FINDINGS: Life Support Devices: Removal of left-sided chest tube. Lungs: The lung volume is normal. Unchanged bibasilar opacities. Pleura: Small pleural effusions. No pneumothorax. Heart and Mediastinum: The cardiomediastinal silhouette and great vessels are stable. Procedure Note Interface, Radiant Results - 08/19/2018 9:28 AM CDT CHEST SINGLE VIEW INDICATION: post chest tube removal evaluating for right pneumothorax COMPARISON STUDY: August 18, 2018. FINDINGS: Life Support Devices: Removal of left-sided chest tube. Lungs: The lung volume is normal. Unchanged bibasilar opacities. Pleura: Small pleural effusions. No pneumothorax. Heart and Mediastinum: The cardiomediastinal silhouette and great vessels are stable. IMPRESSION 1. Removal of left-sided chest tube without pneumothorax. 2. Small pleural effusions with basal atelectasis. Finalized by Seferino Herring M.D. on 08/19/2018 9:25 AM. Dictated by Seferino Herring M.D. on 08/19/2018 9:23 AM. Performing Organization Address City/State/Zipcode Phone Number [facility] * PHOSPHORUS (08/19/2018 3:10 AM) Phosphorus 2.2Comment: NOTE NEW REFERENCE 2.0 - 4.5 MG/DL [facility] RANGES Specimen Blood Performing Organization Address [facility] Phone Number [facility] [address] [place] [address] * MAGNESIUM (08/19/2018 3:10 AM) Magnesium 1.7 1.6 - 2.6 mg/dL [facility] Specimen Blood Performing Organization Address [facility] Phone Number [facility] [address] [place] [address] * CBC AND DIFF (08/19/2018 3:10 AM) White Blood Cells 8.0 4.5 - 11.0 [...] MCHC 31.7 (L) 32.0 - 36.0 G/DL [facility] RDW 16.0 (H) 11 - 15 % [facility] Platelet Count 387 150 - 400 K/UL [facility] [...] MAIN LAB Specimen Blood Performing Organization Address [facility] Phone Number [facility] [address] [place] [address] * BASIC METABOLIC PANEL (08/19/2018 3:10 AM) Sodium 132 (L) 137 - 147 MMOL/L [facility] Potassium 3.8 3.5 - 5.1 MMOL/L [facility] Chloride 103 98 - 110 MMOL/L [facility] CO2 23 21 - 30 MMOL/L [facility] Anion Gap 6 3 - 12 [facility] Glucose 108 (H) 70 - 100 MG/DL [facility] Blood Urea Nitrogen 11 7 - 25 MG/DL [facility] Creatinine 0.81 0.4 - 1.00 MG/DL [facility] Calcium 8.1 (L) 8.5 - 10.6 MG/DL [facility] eGFR Non >60 >60 mL/min [facility] Comment: [...] Blood Performing Organization Address City/State/Zipcode Phone Number [facility] [address] [place] [address] * ECG-SCAN (08/18/2018 8:05 PM) Narrative Performed At Ordered by an unspecified provider. * CHEST SINGLE VIEW (08/18/2018 4:50 AM) Impressions Performed At Left chest tube remains in place without definite pneumothorax. [facility] Approved by Torey Hall M.D. on 08/18/2018 10:50 AM By my electronic signature, I attest that I have personally reviewed the images for this examination and formulated the interpretations and opinions expressed in this report Finalized by Mirza Weinstein M.D. on 08/18/2018 12:45 PM. Dictated by Torey Hall M.D. on 08/18/2018 9:54 AM. Narrative Performed At CHEST SINGLE VIEW [facility] RES[facility] History: Respiratory Insufficiency. Comparison: Chest radiograph August 17, 2018 Findings: Left pigtail chest tube remains in place. Heart size and pulmonary vasculature are within normal limits. No focal consolidation or pleural effusion. No definite pneumothorax. Procedure Note Interface, Radiant Results - 08/18/2018 12:48 PM CDT CHEST SINGLE VIEW History: Respiratory Insufficiency. Comparison: Chest radiograph August 17, 2018 Findings: Left pigtail chest tube remains in place. Heart size and pulmonary vasculature are within normal limits. No focal consolidation or pleural effusion. No definite pneumothorax. IMPRESSION Left chest tube remains in place without definite pneumothorax. Approved by Torey Hall M.D. on 08/18/2018 10:50 AM By my electronic signature, I attest that I have personally reviewed the images for this examination and formulated the interpretations and opinions expressed in this report Finalized by Mirza Weinstein M.D. on 08/18/2018 12:45 PM. Dictated by Torey Hall M.D. on 08/18/2018 9:54 AM. Performing Organization Address [facility] Phone Number [facility] * PHOSPHORUS (08/18/2018 2:25 AM) Phosphorus 1.5 (L)Comment: NOTE NEW 2.0 - 4.5 MG/DL [facility] REFERENCE RANGES Specimen Blood Performing Organization Address [facility] Phone Number [facility] [address] [phone] * MAGNESIUM (08/18/2018 2:25 AM) Magnesium 1.8 1.6 - 2.6 mg/dL [employer] MAIN LAB Specimen Blood Performing Organization Address [facility] Phone Number [facility] [address] [phone] * CBC AND DIFF (08/18/2018 2:25 AM) White Blood Cells 7.5 4.5 - 11.0 K/UL [facility] RBC 3.53 (L) 4.0 - 5.0 M/UL [facility] Hemoglobin 9.9 (L) 12.0 - 15.0 GM/DL [facility] Hematocrit 30.1 (L) 36 - 45 % [facility] MCV 85.4 80 - 100 FL [facility] MCH 28.1 26 - 34 PG [facility] MCHC 32.9 32.0 - 36.0 G/DL [facility] RDW 15.7 (H) 11 - 15 % [facility] Platelet Count 374 150 - 400 K/UL [facility] MPV 7.2 7 - 11 FL [facility] Neutrophils 68 41 - 77 % [facility] Lymphocytes 21 (L) 24 - 44 % [facility] Monocytes 8 4 - 12 % [facility] Eosinophils 1 0 - 5 % [facility] Basophils 2 0 - 2 % [facility] Absolute Neutrophil Count 5.20 1.8 - 7.0 K/UL [facility] Absolute Lymph Count 1.60 1.0 - 4.8 K/UL [facility] Absolute Monocyte Count 0.60 0 - 0.80 K/UL [facility] Absolute Eosinophil Count 0.10 0 - 0.45 K/UL [facility] Absolute Basophil Count 0.10 0 - 0.20 K/UL [facility] Specimen Blood Performing Organization Address [facility] Cent[facility] Phone Number MAIN LAB [address] [place] [address] * BASIC METABOLIC PANEL (08/18/2018 2:25 AM) Sodium 131 (L) 137 - 147 MMOL/L [facility] Potassium 4.0 3.5 - 5.1 MMOL/L [facility] Chloride 102 98 - 110 MMOL/L [facility] CO2 22 21 - 30 MMOL/L [facility] Anion Gap 7 3 - 12 [facility] Glucose 105 (H) 70 - 100 MG/DL [facility] Blood Urea Nitrogen 13 7 - 25 MG/DL [facility] Creatinine 0.78 0.4 - 1.00 MG/DL [facility] Calcium 8.2 (L) 8.5 - 10.6 MG/DL [facility] eGFR Non >60 >60 mL/min [facility] Comment: [...] for questions. Specimen Blood Performing Organization Address [facility] Cent[facility] Phone Number [facility] [address] [place] [address] * PHOSPHORUS (08/17/2018 3:50 AM) Phosphorus 1.7 (L)Comment: NOTE NEW 2.0 - 4.5 MG/DL [facility] REFERENCE RANGES Specimen Blood Performing Organization Address City/[facility] Cent[facility] Phone Number [facility] [address] [place] [address] * MAGNESIUM (08/17/2018 3:50 AM) Magnesium 2.1 1.6 - 2.6 mg/dL [facility] Specimen Blood Performing Organization Address City/State/Zipcode Phone Number [facility] [address] [place] [address] * COMPREHENSIVE METABOLIC PANEL (08/17/2018 3:50 AM) Sodium 133 (L) 137 - 147 MMOL/L [...] City/State/Zipcode Phone Number MAIN LAB [address] [place] [address] * CBC AND DIFF (08/17/2018 3:50 AM) White Blood Cells 6.8 4.5 - 11.0 K/UL [facility] RBC 3.29 (L) 4.0 - 5.0 M/UL [facility] Hemoglobin 9.3 (L) 12.0 - 15.0 GM/DL [facility] Hematocrit 29.0 (L) 36 - 45 % [facility] MCV 88.1 80 - 100 FL [facility] MCH 28.2 26 - 34 PG [facility] MCHC 32.1 32.0 - 36.0 G/DL [facility] RDW 16.3 (H) 11 - 15 % [facility] Platelet Count 301 150 - 400 K/UL [facility] MPV 7.4 7 - 11 FL [facility] Neutrophils 74 41 - 77 % [facility] Lymphocytes 18 (L) 24 - 44 % [facility] Monocytes 7 4 - 12 % [facility] Eosinophils 1 0 - 5 % [facility] Basophils 0 0 - 2 % [facility] Absolute Neutrophil Count 5.00 1.8 - 7.0 K/UL [facility] Absolute Lymph Count 1.20 1.0 - 4.8 K/UL [facility] Absolute Monocyte Count 0.50 0 - 0.80 K/UL [facility] Absolute Eosinophil Count 0.10 0 - 0.45 K/UL [facility] Absolute Basophil Count 0.00 0 - 0.20 K/UL [facility] Specimen Blood Performing Organization Address City/State/Zipcode Phone Number [facility] [address] [place] [address] * CHEST SINGLE VIEW (08/17/2018 3:46 AM) Impressions Performed At Decreased conspicuity of left apical pneumothorax with left chest tube in place. [facility] RESULTS Approved by Andrei West M.D. on 08/17/2018 10:41 AM By my electronic signature, I attest that I have personally reviewed the images for this examination and formulated the interpretations and opinions expressed in this report Finalized by Mirza Weinstein M.D. on 08/17/2018 3:51 PM. Dictated by Andrei West M.D. on 08/17/2018 9:31 AM. Narrative Performed At Procedure: CHEST SINGLE VIEW [facility] RESULTS Clinical Indication:Pneumothorax Comparison:Chest radiograph one day prior Findings: Left chest tube remains in place. Decreased conspicuity of left apical pneumothorax. The heart size is normal without pulmonary venous congestion. No pleural effusion. Procedure Note Interface, Radiant Results - 08/17/2018 3:54 PM CDT Procedure: CHEST SINGLE VIEW Clinical Indication: Pneumothorax Comparison: Chest radiograph one day prior Findings: Left chest tube remains in place. Decreased conspicuity of left apical pneumothorax. The heart size is normal without pulmonary venous congestion. No pleural effusion. IMPRESSION Decreased conspicuity of left apical pneumothorax with left chest tube in place. Approved by nAdrei West M.D. on 08/17/2018 10:41 AM By my electronic signature, I attest that I have personally reviewed the images for this examination and formulated the interpretations and opinions expressed in this report Finalized by Mirza Weinstein M.D. on 08/17/2018 3:51 PM. Dictated by Andrei West M.D. on 08/17/2018 9:31 AM. Performing Organization Address City/State/Zipcode Phone Number [facility] RAD RESULTS * CHEST X-RAY INSPIRATION/EXPIRATION (08/16/2018 6:27 PM) [...] on 08/17/2018 7:38 AM. Performing Organization Address City/[facility] Phone Number [facility] * CHEST [...] on 08/16/2018 5:54 PM. Performing Organization Address City/[facility] Phone Number [facility] * IR ASPIRATION/DRAIN (08/16/2018 4:14 PM) Impressions Performed At Successful placement of a left-sided 8-Greek pigtail drain for pneumothorax. [facility] RAD RESULTS Kev Quiñones M.D, the attending radiologist, was present [...] mg IV Versed; 50 mcg IV fentanyl. EQUIPMENT DETAILER: Ash Capellan D.O. TECHNIQUE AND FINDINGS: A [...] needle. The needle was removed, and an 8-Greek pigtail drainage catheter was advanced over the [...] mg IV Versed; 50 mcg IV fentanyl. EQUIPMENT DETAILER: Ash Capellan D.O. TECHNIQUE AND FINDINGS: A [...] The needle was removed, and an 8- Greek pigtail drainage catheter was advanced over the wire. A large volume of free air was hand aspirated. The catheter was secured to the skin with suture. Hemostasis was achieved with manual compression, and a sterile, occlusive dressing was applied. The patient tolerated the procedure well and left the department in stable condition. IMPRESSION Successful placement of a left-sided 8-Greek pigtail drain for pneumothorax. I, Kev Philip [...] on 08/16/2018 4:46 PM. Performing Organization Address City/State/Zipcode Phone Number [facility] RAD RESULTS * BASIC METABOLIC PANEL (08/16/2018 2:05 PM) Sodium 136 (L) 137 - 147 MMOL/L [facility] Potassium 4.1 3.5 - 5.1 MMOL/L [facility] Chloride 104 98 - 110 MMOL/L [facility] CO2 22 21 - 30 MMOL/L [facility] Anion Gap 10 3 - 12 [facility] Glucose 101 (H) 70 - 100 MG/DL [facility] Blood Urea Nitrogen 24 7 - 25 MG/DL [facility] Creatinine 1.10 (H) 0.4 - 1.00 MG/DL [facility] Calcium 8.3 (L) 8.5 - 10.6 MG/DL [facility] eGFR Non 50 (L) >60 mL/min [facility] Comment: [...] Address City/State/Zipcode Phone Number [facility] [address] [place] [address] * CHEST SINGLE VIEW (08/16/2018 4:38 AM) Impressions Performed At No significant change in left apical pneumothorax. [facility] RESULTS Approved by Hazel Hernandez M.D. on 08/16/2018 9:43 AM By my electronic signature, I attest that I have personally reviewed the images for this examination and formulated the interpretations and opinions expressed in this report Finalized by Zay Ureña M.D. on 08/16/2018 10:45 AM. Dictated by Hazel Hernandez M.D. on 08/16/2018 8:30 AM. Narrative Performed At CHEST SINGLE VIEW [facility] RESULTS Clinical Indication: Female, 67 years old. Respiratory insufficiency Comparison: Chest radiograph from prior day Findings: Left subclavian central venous catheter remains in place. The cardiac silhouette is within normal limits of size. There is no pulmonary vascular congestion. No significant change in left apical pneumothorax. Mild bibasilar atelectasis. Trace pleural effusions. Procedure Note Interface, Radiant Results - 08/16/2018 10:49 AM CDT CHEST SINGLE VIEW Clinical Indication: Female, 67 years old. Respiratory insufficiency Comparison: Chest radiograph from prior day Findings: Left subclavian central venous catheter remains in place. The cardiac silhouette is within normal limits of size. There is no pulmonary vascular congestion. No significant change in left apical pneumothorax. Mild bibasilar atelectasis. Trace pleural effusions. IMPRESSION No significant change in left apical pneumothorax. Approved by Hazel Hernandez M.D. on 08/16/2018 9:43 AM By my electronic signature, I attest that I have personally reviewed the images for this examination and formulated the interpretations and opinions expressed in this report Finalized by Zay Ureña M.D. on 08/16/2018 10:45 AM. Dictated by Hazel Hernandez M.D. on 08/16/2018 8:30 AM. Performing Organization Address City/State/Zipcode Phone Number RAD RESULTS * MAGNESIUM (08/16/2018 4:09 AM) Magnesium 1.8 1.6 - 2.6 mg/dL MAIN LAB Specimen Blood Performing Organization Address City/[facility] Phone Number [facility] [address] [place] [address] * COMPREHENSIVE METABOLIC PANEL (08/16/2018 4:09 AM) Sodium 135 (L) 137 - 147 MMOL/L [facility] Potassium 3.4 (L) 3.5 - 5.1 MMOL/L [facility] Chloride 105 98 - 110 MMOL/L [facility] Glucose 94 70 - 100 MG/DL [facility] Blood Urea Nitrogen 28 (H) 7 - 25 MG/DL [facility] Creatinine 1.24 (H) 0.4 - 1.00 MG/DL [facility] Calcium 7.8 (L) 8.5 - 10.6 MG/DL [facility] Total Protein 5.3 (L) 6.0 - 8.0 G/DL [facility] Total Bilirubin 0.3 0.3 - 1.2 MG/DL [facility] Albumin 2.6 (L) 3.5 - 5.0 G/DL [facility] Alk Phosphatase 103 25 - 110 U/L [facility] AST (SGOT) 16 7 - 40 U/L [facility] CO2 22 21 - 30 MMOL/L [facility] ALT (SGPT) 7 7 - 56 U/L [facility] Anion Gap 8 3 - 12 [facility] eGFR Non 43 (L) >60 mL/min [facility] Comment: The eGFR is not validated for use in drug dosing adjustments.Continue to use estimated creatinine clearance per dosing reference text.Please contact the Clinical Pharmacist for questions. eGFR 53 (L) >60 mL/min [facility] Comment: The eGFR is not validated for use in drug dosing adjustments.Continue to use estimated creatinine clearance per dosing reference text.Please contact the Clinical Pharmacist for questions. Specimen Blood Performing Organization Address City/[facility]/Zipcode Phone Number MAIN LAB [address] [place] [address] * CBC AND DIFF (08/16/2018 4:09 AM) White Blood Cells 11.0 4.5 - 11.0 K/UL [facility] RBC 3.09 (L) 4.0 - 5.0 M/UL [facility] Hemoglobin 8.8 (L) 12.0 - 15.0 GM/DL [facility] Hematocrit 26.2 (L) 36 - 45 % [facility] MCV 84.7 80 - 100 FL [facility] MCH 28.4 26 - 34 PG [facility] MCHC 33.5 32.0 - 36.0 G/DL [facility] RDW 15.8 (H) 11 - 15 % [facility] Platelet Count 291 150 - 400 K/UL [facility] MPV 7.6 7 - 11 FL [facility] Neutrophils 82 (H) 41 - 77 % [facility] Lymphocytes 11 (L) 24 - 44 % [facility] Monocytes 6 4 - 12 % [facility] Eosinophils 0 0 - 5 % [facility] Basophils 1 0 - 2 % [facility] Absolute Neutrophil Count 9.10 (H) 1.8 - 7.0 K/UL [facility] Absolute Lymph Count 1.20 1.0 - 4.8 K/UL [facility] Absolute Monocyte Count 0.70 0 - 0.80 K/UL [facility] Absolute Eosinophil Count 0.00 0 - 0.45 K/UL [facility] Absolute Basophil Count 0.10 0 - 0.20 K/UL [facility] Specimen Blood Performing Organization Address City/[facility]/Zipcode Phone Number [facility] [address] [place] [address] * PHOSPHORUS (08/16/2018 4:09 AM) Phosphorus 2.1Comment: NOTE NEW REFERENCE 2.0 - 4.5 MG/DL [facility] RANGES Specimen Blood Performing Organization Address City/[facility]/Zipcode Phone Number [facility] [address] [place] [address] * BASIC METABOLIC PANEL (08/15/2018 4:40 PM) Sodium 135 (L) 137 - 147 MMOL/L MAIN LAB Potassium 4.0 3.5 - 5.1 MMOL/L [facility] Chloride 104 98 - 110 MMOL/L MAIN LAB CO2 22 21 - 30 MMOL/L [facility] Anion Gap 9 3 - 12 [facility] Glucose 100 70 - 100 MG/DL [facility] Blood Urea Nitrogen 36 (H) 7 - 25 MG/DL [facility] Creatinine 1.76 (H) 0.4 - 1.00 MG/DL [facility] Calcium 7.6 (L) 8.5 - 10.6 MG/DL [facility] eGFR Non 29 (L) >60 mL/min [facility] Comment: The eGFR is not validated for use in drug dosing adjustments.Continue to use estimated creatinine clearance per dosing reference text.Please contact the Clinical Pharmacist for questions. eGFR 35 (L) >60 mL/min [facility] Comment: The eGFR is not validated for use in drug dosing adjustments.Continue to use estimated creatinine clearance per dosing reference text.Please contact the Clinical Pharmacist for questions. Specimen Blood Performing Organization Address City/[facility]/Zipcode Phone Number MAIN LAB [address] [place] [address] * MAGNESIUM (08/15/2018 4:40 PM) Magnesium 2.0 1.6 - 2.6 mg/dL MAIN LAB Specimen Blood Performing Organization Address City/[facility]/Zipcode Phone Number [facility] [address] [place] [address] * C DIFFICILE BY PCR (08/15/2018 2:30 PM) Battery Name C DIFFICILE PCR MAIN LAB Specimen Description FECES MAIN LAB Special Requests NONE MAIN LAB C. Difficile Toxin B PCR NEGATIVE-wait 7 days to repeat MAIN LAB test Report Status FINAL MAIN LAB 08/15/2018 Specimen Feces Performing Organization Address [facility]/Zipcode Phone Number [facility] [address] [place] [address] * CHEST SINGLE VIEW (08/15/2018 2:07 PM) Impressions Performed At No significant change in a small to moderate left pneumothorax. RAD RESULTS Finalized by TONYA CONNER M.D. on 08/15/2018 2:21 PM. Dictated by TONYA CONNER M.D. on 08/15/2018 2:20 PM. Narrative Performed At CHEST SINGLE VIEW [facility] RESULTS Clinical history: pneumothorax. Comparison: Chest radiograph of earlier the same day Findings: The heart size and pulmonary vascularity are within normal limits. A small to moderate left pneumothorax appears unchanged. No focal consolidation or pleural effusion is seen. Left subclavian central venous catheter remains in place. Bilateral percutaneous nephrostomy tubes are visualized. Surgical clips overlie the right upper quadrant of the abdomen. Procedure Note Interface, Radiant Results - 08/15/2018 2:24 PM CDT CHEST SINGLE VIEW Clinical history: pneumothorax. Comparison: Chest radiograph of earlier the same day Findings: The heart size and pulmonary vascularity are within normal limits. A small to moderate left pneumothorax appears unchanged. No focal consolidation or pleural effusion is seen. Left subclavian central venous catheter remains in place. Bilateral percutaneous nephrostomy tubes are visualized. Surgical clips overlie the right upper quadrant of the abdomen. IMPRESSION No significant change in a small to moderate left pneumothorax. Finalized by TONYA CONNER M.D. on 08/15/2018 2:21 PM. Dictated by TONYA CONNER M.D. on 08/15/2018 2:20 PM. Performing Organization Address City/[facility]/Zipcode Phone Number [facility] RAD RESULTS * NOTES (08/15/2018 12:25 PM) Specimen Notes left neph urine REFERENCE LAB Performing Organization Address City/[facility]/Zipcode Phone Number REFERENCE LAB REFERENCE LAB See results for address. * URINALYSIS, MICROSCOPIC (08/15/2018 12:25 PM) WBCs,UA PACKED 0 - 2 /HPF [facility] RBCs,UA PACKED 0 - 3 /HPF [facility] MucousUA 1+ [facility] Bacteria,UA MANY (A) NEG-NEG [facility] Specimen Urine - Urine,Nephrostomy Performing Organization Address City/[facility]/Zipcode Phone Number [facility] [address] [place] [address] * CULTURE-URINE W/SENSITIVITY (08/15/2018 12:25 PM) Battery Name URINE CULTURE [facility] Specimen Description URINE,NEPHROSTOMY [facility] Special Requests NONE [facility] Culture >100,000 organisms/ml [facility] ENTEROCOCCUS FAECALIS <10,000 organisms/ml CONTAMINANT (A) Report Status FINAL [facility] 08/17/2018 Organism ID >100,000 organisms/ml [...] enterococcus faecalis INTERPRETATION INTERPRETATION Performing Organization Address City/State/Zipcode Phone Number MAIN LAB [address] [place] [address] * IR ASPIRATION/DRAIN (08/15/2018 12:15 PM) Impressions Performed At 1.Malpositioned left percutaneous nephrostomy tube, retracted into the [facility] RAD RESULTS perinephric space. Therefore, a new 8.5 Greek nephrostomy tube was placed as described above. 2.Uneventful exchange of 8.5 Greek right sided percutaneous nephrostomy tube. I, Gilberto Karimi M.D, the attending radiologist, was present for the critical and diamond portions of the procedure with a midlevel, resident, and/or fellow participating.Overlapping portions were non diamond and I was immediately available.I interpret the critical and diamond portion of this procedure to have been needle access and bilateral catheter positioning. @TT Approved by Ketan Wills M.D. on 08/17/2018 3:33 PM By my electronic signature, I attest that I have personally reviewed the images for this examination and formulated the interpretations and opinions expressed in this report Finalized by Gilberto Karimi M.D. on 08/19/2018 8:10 AM. Dictated by Ketan Wills M.D. on 08/17/2018 3:18 PM. Narrative Performed At Bilateral percutaneous nephrostomy check and exchange: [facility] RAD RESULTS History: Bilateral ureteral obstruction Technique: The procedure including risks, alternatives and benefits was explained the patient. The patient provided written and verbal consent. The patient was placed prone on the examination table. The bilateral flanks were prepped and draped in normal sterile fashion. 1% lidocaine was used anesthetize the local soft tissues.Under fluoroscopy, contrast was injected through the indwelling left percutaneous nephrostomy tube demonstrating improper positioning outside of the renal collecting system, therefore the catheter was cut and removed. A KALEIGH 1 catheter and Glidewire were used to regain access into the kidney through the existing percutaneous nephrostomy tube tract, though this is unsuccessful likely due to the tube having been malpositioned for approximately 5 days. Therefore , under ultrasound guidance, a 22-gauge Chiba needle was advanced into a posterior calyx. Contrast was used to opacify the collecting system. A dermatotomy was made with an 11 blade scalpel. A grebs set was advanced over a Microvena wire into the proximal ureter. The inner portion of the set was then removed and exchanged for an Amplatz wire. The outer sheath was then removed and an 8 Greek pigtail catheter was advanced into the renal pelvis. The Gary loop was formed. Contrast was instilled into the collecting system confirming position within the renal pelvis. The catheter was secured to skin with 2-0 Ethyol and attached to a drainage bag. Next, attention was turned to the indwelling right percutaneous nephrostomy tube. Contrast was injected demonstrating proper positioning within the renal collecting system. The catheter was cut and an Amplatz wire was advanced into the renal pelvis. The indwelling catheter was exchanged for a fresh 8.5 Greek percutaneous nephrostomy tube. The cope loop was formed within the renal pelvis and the catheter was sutured to the skin using 2-0 Ethilon and attached to a drainage bag. Sterile dressings were applied to both percutaneous nephrostomy tubes. The patient tolerated the procedure well and left the department in stable condition. Total absorbed x-ray dose: 204 mGy Sedation Medication:I was personally responsible for the administration of moderate sedation services during the procedure performed and I confirm requirements described in CPT section on moderate sedation were followed, including the use of an independent trained observer who had no other duties during the procedure.See nursing log for complete details; the drugs utilized were:3.5 mg IV Versed; 200 mcg IV Fentanyl. Procedure Note Interface, Radiant Results - 08/19/2018 8:13 AM CDT Bilateral percutaneous nephrostomy check and exchange: History: Bilateral ureteral obstruction Technique: The procedure including risks, alternatives and benefits was explained the patient. The patient provided written and verbal consent. The patient was placed prone on the examination table. The bilateral flanks were prepped and draped in normal sterile fashion. 1% lidocaine was used anesthetize the local soft tissues. Under fluoroscopy, contrast was injected through the indwelling left percutaneous nephrostomy tube demonstrating improper positioning outside of the renal collecting system, therefore the catheter was cut and removed. A KALEIGH 1 catheter and Glidewire were used to regain access into the kidney through the existing percutaneous nephrostomy tube tract, though this is unsuccessful likely due to the tube having been malpositioned for approximately 5 days. Therefore, under ultrasound guidance, a 22-gauge Chiba needle was advanced into a posterior calyx. Contrast was used to opacify the collecting system. A dermatotomy was made with an 11 blade scalpel. A grebs set was advanced over a Microvena wire into the proximal ureter. The inner portion of the set was then removed and exchanged for an Amplatz wire. The outer sheath was then removed and an 8 Greek pigtail catheter was advanced into the renal pelvis. The Gary loop was formed. Contrast was instilled into the collecting system confirming position within the renal pelvis. The catheter was secured to skin with 2-0 Ethyol and attached to a drainage bag. Next, attention was turned to the indwelling right percutaneous nephrostomy tube. Contrast was injected demonstrating proper positioning within the renal collecting system. The catheter was cut and an Amplatz wire was advanced into the renal pelvis. The indwelling catheter was exchanged for a fresh 8.5 Greek percutaneous nephrostomy tube. The cope loop was formed within the renal pelvis and the catheter was sutured to the skin using 2-0 Ethilon and attached to a drainage bag. Sterile dressings were applied to both percutaneous nephrostomy tubes. The patient tolerated the procedure well and left the department in stable condition. Total absorbed x-ray dose: 204 mGy Sedation Medication: I was personally responsible for the administration of moderate sedation services during the procedure performed and I confirm requirements described in CPT section on moderate sedation were followed, including the use of an independent trained observer who had no other duties during the procedure. See nursing log for complete details; the drugs utilized were: 3.5 mg IV Versed; 200 mcg IV Fentanyl. IMPRESSION 1. Malpositioned left percutaneous nephrostomy tube, retracted into the perinephric space. Therefore, a new 8.5 Greek nephrostomy tube was placed as described above. 2. Uneventful exchange of 8.5 Greek right sided percutaneous nephrostomy tube. I, Gilberto Karimi M.D, the attending radiologist, was present for the critical and diamond portions of the procedure with a midlevel, resident, and/or fellow participating. Overlapping portions were non diamond and I was immediately available. I interpret the critical and diamond portion of this procedure to have been needle access and bilateral catheter positioning. @TT Approved by Ketan Wills M.D. on 08/17/2018 3:33 PM By my electronic signature, I attest that I have personally reviewed the images for this examination and formulated the interpretations and opinions expressed in this report Finalized by Gilberto Karimi M.D. on 08/19/2018 8:10 AM. Dictated by Ketan Wills M.D. on 08/17/2018 3:18 PM. Performing Organization Address City/[facility]/Zipcode Phone Number RAD RESULTS * NOTES (08/15/2018 12:07 PM) Specimen Notes right neph urine REFERENCE LAB Performing Organization Address City/[facility]/Zipcode Phone Number REFERENCE LAB REFERENCE LAB See results for address. * URINALYSIS, MICROSCOPIC (08/15/2018 12:07 PM) WBCs,UA PACKED 0 - 2 /HPF [facility] RBCs,UA PACKED 0 - 3 /HPF [facility] MucousUA TRACE [facility] Bacteria,UA MANY (A) NEG-NEG [facility] WBC Clumps PRESENT [facility] Squamous Epithelial Cells 2-5 0 - 5 [facility]IN [facility] Specimen Urine - Urine,Nephrostomy Performing Organization Address City/[facility]/Zipcode Phone Number [facility]IN [facility] [address] [place] [address] * CULTURE-URINE W/SENSITIVITY (08/15/2018 12:07 PM) Battery Name URINE CULTURE [facility] Specimen Description URINE,NEPHROSTOMY [facility] Special Requests NONE [facility] Culture >100,000 organisms/ml [facility] ENTEROCOCCUS FAECALIS See susceptibility on duplicate isolate >100,000 organisms/ml GAMMA HEMOLYTIC STREPTOCOCCUS <10,000 organisms/ml CONTAMINANT Report Status FINAL MAIN LAB 08/17/2018 Specimen Urine - Urine,Nephrostomy Performing Organization Address [facility] Phone Number MA[facility] LAB [address] [place] [address] * MAGNESIUM (08/15/2018 10:20 AM) Magnesium 2.3 1.6 - 2.6 mg/dL MAIN LAB Specimen Blood Performing Organization Address [facility] Phone Number MAIN LAB [address] [place] [address] * BASIC METABOLIC PANEL (08/15/2018 10:20 AM) Sodium 132 (L) 137 - 147 MMOL/L MAIN LAB Potassium 3.4 (L) 3.5 - 5.1 MMOL/L MAIN LAB Chloride 99 98 - 110 MMOL/L MAIN LAB CO2 25 21 - 30 MMOL/L MAIN LAB Anion Gap 8 3 - 12 MAIN LAB Glucose 118 (H) 70 - 100 MG/DL MAIN LAB Blood Urea Nitrogen 39 (H) 7 - 25 MG/DL MAIN LAB Creatinine 1.96 (H) 0.4 - 1.00 MG/DL MAIN LAB Calcium 7.4 (L) 8.5 - 10.6 MG/DL MAIN LAB eGFR Non 26 (L) >60 mL/min [facility] Comment: The eGFR is not validated for use in drug dosing adjustments.Continue to use estimated creatinine clearance per dosing reference text.Please contact the Clinical Pharmacist for questions. eGFR 31 (L) >60 mL/min MAIN LAB Comment: The eGFR is not validated for use in drug dosing adjustments.Continue to use estimated creatinine clearance per dosing reference text.Please contact the Clinical Pharmacist for questions. Specimen Blood Performing Organization Address [facility] Phone Number MA[facility] LAB [address] [place] [address] * TROPONIN-I (08/15/2018 10:20 AM) Troponin-I 0.03 0.0 - 0.05 NG/ML MAIN LAB Specimen Blood Performing Organization Address City/[facility] Phone Number [facility] LAB [address] [place] [address] * UREA NITROGEN-URINE RANDOM (08/15/2018 7:50 AM) Urea Nitrogen 461 MG/DL MAIN LAB Specimen Urine - Urine Performing Organization Address City/[facility]/Zipcode Phone Number MAIN LAB [address] [place] [address] * CREATININE-URINE RANDOM (08/15/2018 7:50 AM) Creatinine, Random 83 MG/DL MAIN LAB Specimen Urine - Urine Performing Organization Address City/[facility]/Zipcode Phone Number MAIN LAB [address] [place] [address] * CULTURE-URINE W/SENSITIVITY (08/15/2018 7:50 AM) Battery Name URINE CULTURE MAIN LAB Specimen Description URINE MAIN LAB Special Requests NONE MAIN LAB Culture >100,000 organisms/ml MAIN LAB ENTEROCOCCUS FAECALIS See susceptibility on duplicate isolate >100,000 organisms/ml GAMMA HEMOLYTIC STREPTOCOCCUS <100,000 organisms/ml KLEBSIELLA (formerly Enterobacter) AEROGENES (A) Report Status FINAL MAIN LAB 08/17/2018 Organism ID <100,000 organisms/ml MAIN LAB KLEBSIELLA (formerly Enterobacter) AEROGENES Specimen Urine - Urine Organism Antibiotic Method Susceptibility <100,000 organisms/ml Ampicillin ALDO (MCG/ML) >16 RESISTANT: Resistant klebsiella (formerly INTERPRETATION enterobacter) aerogenes <100,000 organisms/ml Amoxicil/Clav Acid ALDO (MCG/ML) >16/8 RESISTANT: klebsiella (formerly INTERPRETATION Resistant enterobacter) aerogenes <100,000 organisms/ml Cefazolin ALDO (MCG/ML) >16 RESISTANT: Resistant klebsiella (formerly INTERPRETATION enterobacter) aerogenes <100,000 organisms/ml Levofloxacin ALDO (MCG/ML) <=1 SUSCEPTIBLE: klebsiella (formerly INTERPRETATION Susceptible enterobacter) aerogenes <100,000 organisms/ml Nitrofurantoin ALDO (MCG/ML) >64 RESISTANT: Resistant klebsiella (formerly INTERPRETATION enterobacter) aerogenes <100,000 organisms/ml Gentamicin ALDO (MCG/ML) <=2 SUSCEPTIBLE: klebsiella (formerly INTERPRETATION Susceptible enterobacter) aerogenes <100,000 organisms/ml Trimethsulfa ALDO (MCG/ML) <=0.5/9.5 SUSCEPTIBLE: klebsiella (formerly INTERPRETATION Susceptible enterobacter) aerogenes <100,000 organisms/ml Piperacil/Tazobactam ALDO (MCG/ML) 8/4 SUSCEPTIBLE: klebsiella (formerly INTERPRETATION Susceptible enterobacter) aerogenes <100,000 organisms/ml Tetracycline ALDO (MCG/ML) <=2 SUSCEPTIBLE: klebsiella (formerly INTERPRETATION Susceptible enterobacter) aerogenes <100,000 organisms/ml Cefepime ALDO (MCG/ML) <=1 SUSCEPTIBLE: klebsiella (formerly INTERPRETATION Susceptible enterobacter) aerogenes <100,000 organisms/ml Ertapenem ALDO (MCG/ML) 0.5 SUSCEPTIBLE: klebsiella (formerly INTERPRETATION Susceptible enterobacter) aerogenes <100,000 organisms/ml Ceftriaxone ALDO (MCG/ML) <=1 SUSCEPTIBLE: klebsiella (formerly INTERPRETATION Susceptible enterobacter) aerogenes <100,000 organisms/ml Method ALDO (MCG/ML) ALDO (MCG/ML) klebsiella (formerly INTERPRETATION INTERPRETATION enterobacter) aerogenes Performing Organization Address [facility] Phone Number [facility] [address] [place] [address] * URINALYSIS, MICROSCOPIC (08/15/2018 7:50 AM) WBCs,UA PACKED 0 - 2 /HPF [facility] RBCs,UA 20-50 0 - 3 /HPF [facility] MucousUA 1+ [facility] Bacteria,UA FEW (A) NEG-NEG [facility] Squamous Epithelial Cells 0-2 0 - 5 [facility] Amorphous Sedimate,UA FEW [facility] Specimen Urine - Urine Performing Organization Address [facility] Phone Number [facility] [address] [place] [address] * URINALYSIS DIPSTICK (08/15/2018 7:50 AM) Color,UA YELLOW [facility] Turbidity,UA 2+ (A) CLEAR-CLEAR [facility] Specific Grant-Urine 1.013 1.003 - 1.035 [facility] pH,UA 5.0 5.0 - 8.0 [facility] Protein,UA 2+ (A) NEG-NEG [facility] Glucose,UA NEG [...] Specimen Urine - Urine Performing Organization Address [facility] Phone Number [facility] [address] [place] [address] * ABDOMEN AP ONLY (08/15/2018 6:55 AM) [...] on 08/15/2018 7:33 AM. Performing Organization Address City/State/Zipcode Phone Number [facility] RESULTS * CHEST SINGLE VIEW (08/15/2018 6:54 AM) Impressions Performed At Development of a small to moderate left pneumothorax. [facility] RESULTS This finding was discussed with the patient's nurse, Johanna, by telephone, at 10:09 AM on 08/15/2018. Finalized by TONYA CONNER M.D. on 08/15/2018 10:09 AM. Dictated by TONYA CONNER M.D. on 08/15/2018 10:00 AM. Narrative Performed At CHEST SINGLE VIEW [facility] RESULTS Clinical history: sepsis. Comparison: Chest 07/02/2018 Findings: The heart size and pulmonary vascularity are within normal limits. There has been development of a small to moderate left pneumothorax. There has been placement of a left subclavian central venous catheter, with the tip overlying the distal SVC. No focal consolidation or pleural effusion is seen. A right IJ central venous catheter has been removed. Procedure Note Interface, Radiant Results - 08/15/2018 10:12 AM CDT CHEST SINGLE VIEW Clinical history: sepsis. Comparison: Chest 07/02/2018 Findings: The heart size and pulmonary vascularity are within normal limits. There has been development of a small to moderate left pneumothorax. There has been placement of a left subclavian central venous catheter, with the tip overlying the distal SVC. No focal consolidation or pleural effusion is seen. A right IJ central venous catheter has been removed. IMPRESSION Development of a small to moderate left pneumothorax. This finding was discussed with the patient's nurse, Johanna, by telephone, at 10: 09 AM on 08/15/2018. Finalized by TONYA CONNER M.D. on 08/15/2018 10:09 AM. Dictated by TONYA CONNER M.D. on 08/15/2018 10:00 AM. Performing Organization Address City/State/Zipcode Phone Number [employer] RAD RESULTS * TROPONIN-I (08/15/2018 6:50 AM) Troponin-I 0.04 0.0 - 0.05 NG/ML [facility] Specimen Blood Performing Organization Address City/State/Zipcode Phone Number [facility] [address] [place] [address] * CULTURE-BLOOD W/SENSITIVITY (08/15/2018 4:59 AM) Battery Name BLOOD CULTURE [facility] Specimen Description BLOOD [facility] RIGHT FA Special Requests NONE [facility] Culture NO GROWTH 5 DAYS [facility] Report Status FINAL [facility] 08/21/2018 Specimen Blood Performing Organization Address [facility] Phone Number [facility] LAB [address] [place] [address] * PHOSPHORUS (08/15/2018 4:55 AM) Phosphorus 2.5Comment: NOTE NEW REFERENCE 2.0 - 4.5 MG/DL MAIN LAB RANGES Specimen Blood Performing Organization Address [facility] Phone Number MAIN LAB [address] [place] [address] * TSH WITH FREE T4 REFLEX (08/15/2018 4:55 AM) TSH 1.200 0.35 - 5.00 MCU/ML MAIN LAB Specimen Blood Performing Organization Address [facility] Phone Number [facility] [address] [place] [address] * TROPONIN-I (08/15/2018 4:55 AM) Troponin-I 0.03 0.0 - 0.05 NG/ML MAIN LAB Specimen Blood Performing Organization Address [facility] Phone Number [facility] [address] [place] [address] * BNP (B-TYPE NATRIURETIC PEPTI) (08/15/2018 4:55 AM) B Type Natriuretic 129.0 (H) 0 - 100 PG/ML [facility] Peptide Specimen Blood Performing Organization Address [facility] Phone Number [facility] [address] [place] [address] * MAGNESIUM (08/15/2018 4:55 AM) Magnesium 1.1 (L) 1.6 - 2.6 mg/dL MAIN LAB Specimen Blood Performing Organization Address [facility] Phone Number MAIN LAB [address] [place] [address] * LACTIC ACID (BG - RAPID LACTATE) (08/15/2018 4:55 AM) Lactic Acid,BG 1.0 0.5 - 2.0 MMOL/L MAIN LAB Specimen Blood Performing Organization Address [facility] Phone Number [facility] [address] [place] [address] * COMPREHENSIVE METABOLIC PANEL (08/15/2018 4:55 AM) Sodium 134 (L) 137 - 147 MMOL/L [facility] Potassium 2.5 (LL) 3.5 - 5.1 MMOL/L [facility] Comment: Critical Value K: Called To: ANG Mckeon at: 06:09:16 by: [place] Read back by: ANG Mckeon Chloride 99 98 - 110 MMOL/L [facility] Glucose 109 (H) 70 - 100 MG/DL [facility] Blood Urea Nitrogen 38 (H) 7 - 25 MG/DL [facility] Creatinine 2.06 (H) 0.4 - 1.00 MG/DL [facility] Calcium 7.3 (L) 8.5 - 10.6 MG/DL [facility] Total Protein 5.6 (L) 6.0 - 8.0 G/DL [facility] Total Bilirubin 0.3 0.3 - 1.2 MG/DL [facility] Albumin 2.8 (L) 3.5 - 5.0 G/DL [facility] Alk Phosphatase 67 25 - 110 U/L [facility] AST (SGOT) 13 7 - 40 U/L [facility] CO2 25 21 - 30 MMOL/L [facility] ALT (SGPT) 6 (L) 7 - 56 U/L [facility] Anion Gap 10 3 - 12 [facility] eGFR Non 24 (L) >60 mL/min [facility] Comment: The eGFR is not validated for use in drug dosing adjustments.Continue to use estimated creatinine clearance per dosing reference text.Please contact the Clinical Pharmacist for questions. eGFR 29 (L) >60 mL/min [facility] Comment: The eGFR is not validated for use in drug dosing adjustments.Continue to use estimated creatinine clearance per dosing reference text.Please contact the Clinical Pharmacist for questions. Specimen Blood Performing Organization Address City/[facility]/Zipcode Phone Number MAIN LAB [address] [place] [address] * PTT (APTT) (08/15/2018 4:55 AM) APTT 28.6Comment: NOTE NEW 20.0 - 36.0 SEC [facility] REFERENCE RANGES Specimen Blood Performing Organization Address City/[facility]/Zipcode Phone Number [facility] [address] [place] [address] * PROTIME INR (PT) (08/15/2018 4:55 AM) INR 2.0 (H) 0.8 - 1.2 MAIN LAB Specimen Blood Performing Organization Address City/[facility]/Zipcode Phone Number MAIN LAB [address] [place] [address] * CBC AND DIFF (08/15/2018 4:55 AM) White Blood Cells 15.8 (H) 4.5 - 11.0 K/UL MAIN [facility] RBC 3.16 (L) 4.0 - 5.0 M/UL MAIN LAB Hemoglobin 9.0 (L) 12.0 - 15.0 GM/DL MAIN LAB Hematocrit 26.9 (L) 36 - 45 % MAIN LAB MCV 84.9 80 - 100 FL MAIN LAB MCH 28.4 26 - 34 PG MAIN LAB MCHC 33.5 32.0 - 36.0 G/DL MAIN LAB RDW 15.6 (H) 11 - 15 % MAIN LAB Platelet Count 294 150 - 400 K/UL MAIN LAB MPV 7.8 7 - 11 FL MAIN LAB Neutrophils 88 (H) 41 - 77 % MAIN LAB Lymphocytes 7 (L) 24 - 44 % MAIN LAB Monocytes 5 4 - 12 % MAIN LAB Eosinophils 0 0 - 5 % MAIN LAB Basophils 0 0 - 2 % MAIN LAB Absolute Neutrophil Count 13.90 (H) 1.8 - 7.0 K/UL MAIN [facility] Absolute Lymph Count 1.10 1.0 - 4.8 K/UL MAIN LAB Absolute Monocyte Count 0.70 0 - 0.80 K/UL MAIN [facility] Absolute Eosinophil Count 0.00 0 - 0.45 K/UL MAIN [facility] Absolute Basophil Count 0.10 0 - 0.20 K/[facility] MAIN [facility] Specimen Blood Performing Organization Address City/[facility]/Zipcode Phone Number MAIN LAB [address] [place] [address] * CULTURE-BLOOD W/SENSITIVITY (08/15/2018 4:50 AM) Battery Name BLOOD CULTURE MAIN LAB Specimen Description BLOOD MAIN LAB LEFT CVC BROWN [place] Special Requests NONE MAIN LAB Culture NO GROWTH 5 DAYS MAIN LAB Report Status FINAL MAIN LAB 08/21/2018 Specimen Blood Performing Organization Address City/[facility]/Zipcode Phone Number MAIN LAB [address] [place] [address] * GENERAL RAD ABDOMEN EXTERNAL IMAGING (08/15/2018) Narrative Performed At This order has been auto finalized and does not contain a result. * GENERAL RAD CHEST EXTERNAL IMAGING (08/14/2018 12:15 AM) Narrative Performed At This order has been auto finalized and does not contain a result. * GENERAL RAD CHEST EXTERNAL IMAGING (08/14/2018) Narrative Performed At This order has been auto finalized and does not contain a result. in this encounter Visit Diagnoses Diagnosis Septic shock (HCC) - Primary Unspecified septicemia Diagnosis unknown Other unknown and unspecified cause of morbidity or mortality Bilateral ureteral obstruction Anxiety Anxiety state, unspecified Major depressive disorder with single episode, in remission (HCC) Gastroesophageal reflux disease without esophagitis Esophageal reflux Hypothyroidism due to acquired atrophy of thyroid Vitamin D deficiency Unspecified vitamin D deficiency Obesity (BMI 30-39.9) Obesity, unspecified Acute deep vein thrombosis (DVT) of distal end of right lower extremity (HCC) Pneumothorax, iatrogenic Iatrogenic pneumothorax Admitting Diagnoses Diagnosis Sepsis Sepsis (HCC) Unspecified septicemia Septic shock (HCC) Unspecified septicemia Administered Medications Medication Order MAR Action Action Date Dose Rate Site acetaminophen (TYLENOL) tablet 325 mg Given 08/16/2018 325 mg 325 mg, Oral, EVERY 6 HOURS PRN, 17:12 CDT Starting Ledy 08/15/18 at 0531, Until Sun08/16/18 at 2254, headache, TOTAL ACETAMINOPHEN DOSE NOT TO EXCEED 4GM DAILY acetaminophen (TYLENOL) tablet 650 mg Given 08/18/2018 650 mg 650 mg, Oral, EVERY 6 HOURS PRN, 11:30 CDT Starting 08/16/18 at 2256, Until 08/19/18 at 1822, headache, TOTAL ACETAMINOPHEN DOSE NOT TO EXCEED 4GM DAILY Given 08/18/2018 650 mg 19:59 CDT Given 08/19/2018 650 mg 14:42 CDT acetaminophen/lidocaine/antacid DS(#) Given 08/18/2018 30 mL (GI COCKTAIL) 1:1:3 suspension 30 mL 04:21 CDT 30 mL, Oral, ONCE, 1 dose, 08/18/18 at 0400, 30mL (1:1:3)=192mg/6mL acetamin-6mL 2% vis lidocaine-18mL Antacid DS apixaban (ELIQUIS) tablet 5 mg Given 08/18/2018 5 mg 5 mg, Oral, TWICE DAILY, First dose on 08:31 CDT 08/17/18 at 1130, Until Discontinued, May crush 5 mg or 2.5 mg tablets and suspend in 60 mL of D5W followed by immediate delivery through a nasogastric tube. No information regarding administration of suspension by mouth is available. NOTE: This is a HIGH ALERT Medication. Given 08/18/2018 5 mg 20:06 CDT Given 08/19/2018 5 mg 08:29 CDT docusate (COLACE) capsule 100 mg Given 08/19/2018 100 mg 100 mg, Oral, TWICE DAILY, First dose on 08:29 CDT Ledy 08/15/18 at 0900, Until Discontinued, Hold for loose stools fentaNYL citrate PF (SUBLIMAZE) Given 08/15/2018 50 mcg injection 50 mcg 11:42 CDT 50 mcg, Intravenous, ONCE, 1 dose, Ledy 08/15/18 at 1200 fentaNYL citrate PF (SUBLIMAZE) Given 08/16/2018 50 mcg injection 50-100 mcg 16:31 CDT 50-100 mcg, Intravenous, ONCE, 1 dose, 08/16/18 at 1630 fentaNYL citrate PF (SUBLIMAZE) Given 08/15/2018 50 mcg injection 11:52 CDT INTRA-PROCEDURE MED, Starting Ledy 08/15/18 at 1152, Until Discontinued Given 08/15/2018 50 mcg 12:09 CDT Given 08/15/2018 50 mcg 12:21 CDT furosemide (LASIX) tablet 40 mg Given 08/18/2018 40 mg 40 mg, Oral, DAILY, First dose on Sun 10:49 CDT 08/18/18 at 1045, Until Discontinued Given 08/19/2018 40 mg 08:29 CDT iopamidol 300 (ISOVUE-300) injection 30 Given 08/15/2018 30 mL mL 12:29 CDT 30 mL, Intra-arterial, ONCE, 1 dose, Ledy 08/15/18 at 1230, NOTE: This is a HIGH ALERT Medication. levoFLOXacin (LEVAQUIN) tablet 750 mg Given 08/17/2018 750 mg 750 mg, Oral, EVERY 24 HOURS, 14 doses, 11:56 CDT First dose on 08/17/18 at 1130, Last dose on Sun08/30/18 at 1130, NURSING: Please educate patient and document: Give 1 hour before or 2 hours after meals. If patient is receiving tube feedings, hold tube feedings 1 hour before and 2 hours after dose. Do not give within 2 hours of antacids, magnesium, calcium, iron, zinc, or vitamins containing these minerals. Given 08/18/2018 750 mg 10:49 CDT Given 08/19/2018 750 mg 14:42 CDT levothyroxine (SYNTHROID) tablet 50 mcg Given 08/17/2018 50 mcg 50 mcg, Oral, DAILY 30MIN BEFORE 06:00 CDT BREAKFAST, First dose on Sun08/15/18 at 0630, Until Discontinued, Give 1 hour before a meal. If patient is receiving tube feedings, hold tube feed 1hr before and 1hr after dose. Given 08/18/2018 50 mcg 06:13 CDT Given 08/19/2018 50 mcg 06:27 CDT lidocaine (LIDODERM) 5 % topical patch 1 Patch/Topica 08/16/2018 1 patch Chest, Left patch l Applied 20:36 CDT 1 patch, Topical, Administer over 12 Hours, DAILY, First dose on Sun08/16/18 at 2145, Until Discontinued, NURSING PLEASE NOTE: Apply patch ONCE DAILY to affected site and REMOVE after designated duration. Apply only to intact skin. Patch may be cut to fit affected area. Patch/Topical Applied 08/18/2018 1 patch Chest, Left 02:05 CDT magnesium sulfate 1 g/D5W 100 mL IVPB Given - New 08/15/2018 1 g 100 mL/hr 1 g, Intravenous, 100 mL, Administer Bag 06:44 CDT over 1 Hours, EVERY 1 HOUR FOR 3 DOSES, 3 doses, First dose on Sun08/15/18 at 0700, Last dose on Sun08/15/18 at 0900, Each 1gm delivers 8.1 mEq Magnesium. Given - Bag 08/15/2018 1 g 100 mL/hr 08:01 CDT Given - Bag 08/15/2018 1 g 100 mL/hr 09:03 CDT magnesium sulfate 1 g/D5W 100 mL IVPB Given - 08/16/2018 1 g 100 mL/hr 1 g, Intravenous, 100 mL, Administer Bag 06:21 CDT over 1 Hours, EVERY 1 HOUR FOR 2 DOSES, 2 doses, First dose on Sun08/16/18 at 0600, Last dose on Sun08/16/18 at 0700, Each 1gm delivers 8.1 mEq Magnsium. Given - New Bag 08/16/2018 1 g 100 mL/hr 07:10 CDT magnesium sulfate 1 g/D5W 100 mL IVPB Given - New 08/19/2018 1 g 100 mL/hr 1 g, Intravenous, 100 mL, Administer Bag 04:20 CDT over 1 Hours, NEEDED, Starting Sun08/16/18 at 0812, Until 08/19/18 at 1822, Other..., magnesium replacement (see Admin Instructions), If urine output < 30 mL/hr or SCr >2 mg/dL, check with physician prior to giving magnesium replacement. - For Serum Magnesium > 2.1 mg/dL, No replacement necessary. - For Serum Magnesium 1.8 - 2.0 mg/dL, give Magnesium Sulfate 2 grams IV over 2 hours. - For Serum Magnesium 1.6 - 1.7 mg/dL, give Magnesium Sulfate 3 grams IV over 3 hours. - For Serum Magnesium 1.3 - 1.5 mg/dL, give Magnesium Sulfate 4 grams IV over 4 hours. - For Serum Magnesium <=1.2 mg/dL, give Magnesium Sulfate 6 grams IV over 6 hours AND notify physician. Recheck serum magnesium level 2 hours after completion of appropriate replacement dose. Repeat this standing order x 1. Notify physician if serum magnesium < 2.1 mg/dL after two replacements. Infuse each 1gm Magnesium sulfate over 1 hour. Each 1 gm delivers 8.1 mEq Magnesium. Given - New Bag 08/19/2018 1 g 100 mL/hr 05:28 CDT Given - New Bag 08/19/2018 1 g 100 mL/hr 06:28 CDT melatonin tablet 3 mg Given 08/18/2018 3 mg 3 mg, Oral, ONCE, 1 dose, 08/18/18 at 02:34 CDT 0245 meropenem (MERREM) IVP 1 g Given 08/15/2018 1 g 1 g, Intravenous, EVERY 12 HOURS, First 23:36 CDT dose on Ledy 08/15/18 at 1100, Until Discontinued, IV PUSH -- administer each 1 g vial over 5 minutes. RECONSTITUTE each 1 g vial by adding 20ml of sterile water. Use immediately after reconstitution. Given 08/16/2018 1 g 11:55 CDT Given 08/16/2018 1 g 23:22 CDT midazolam (VERSED) injection 1 mg Given 08/15/2018 1 mg 1 mg, Intravenous, ONCE, 1 dose, Ledy 11:38 CDT 08/15/18 at 1200 midazolam (VERSED) injection 1-2 mg Given 08/16/2018 1 mg 1-2 mg, Intravenous, ONCE, 1 dose, Sun 16:31 CDT 08/16/18 at 1630 midazolam (VERSED) injection Given 08/15/2018 0.5 mg INTRA-PROCEDURE MED, Starting Ledy 11:47 CDT 08/15/18 at 1147, Until Discontinued Given 08/15/2018 1 mg 12:06 CDT Given 08/15/2018 1 mg 12:14 CDT nicotine (NICODERM CQ STEP 1) 21 mg/day Patch/Topica 08/17/2018 1 patch Arm, Right patch 1 patch l Applied 05:58 CDT 1 patch, Transdermal, Administer over 24 Hours, EVERY 24 HOURS, First dose on Ledy 08/15/18 at 0545, Until Discontinued Patch/Topical Applied 08/18/2018 1 patch Shoulder, 06:13 CDT Left Patch/Topical Applied 08/19/2018 1 patch Shoulder, 06:26 CDT Right nystatin (NYSTOP) topical powder Given 08/17/2018 Topical, TWICE DAILY, First dose on Ledy 09:39 CDT 08/15/18 at 2100, Until Discontinued, Apply to abel area Given 08/17/2018 20:03 CDT Given 08/18/2018 20:[address] (PROTONIX) tablet 40 mg Given 08/18/2018 40 mg 40 mg, Oral, TWICE DAILY, First dose on 08:31 CDT Ledy 08/15/18 at 0900, Until Discontinued, Do not crush or chew tablet. Given 08/18/2018 40 mg 20:05 CDT Given 08/19/2018 40 mg 08:29 CDT piperacillin/tazobactam (ZOSYN) 3.375 Given - New 08/15/2018 3.375 g 100 mL/hr g/50 mL iso-osmotic IVPB Bag 08:02 CDT 3.375 g, Intravenous, at 100 mL/hr, EVERY 6 HOURS, First dose on Ledy 08/15/18 at 0745, Until Discontinued potassium chloride in water IVPB 10 mEq Given - New 08/15/2018 10 mEq 50 mL/hr 10 mEq, Intravenous, 50 mL, Administer Bag 07:25 CDT over 60 Minutes, EVERY 1 HOUR FOR 4 DOSES, 4 doses, First dose on Ledy 08/15/18 at 0700, Last dose on Ledy 08/15/18 at 1000, NOTE: This is a HIGH ALERT Medication. Given - New Bag 08/15/2018 10 mEq 50 mL/hr 08:12 CDT Given - New Bag 08/15/2018 10 mEq 50 mL/hr 09:04 CDT potassium chloride oral solution 40-60 mEq 40-60 mEq, Per NG tube, NEEDED, Starting Sun08/16/18 at 0812, Until 08/19/18 at 1822, Other..., For potassium replacement, See admin instructions, If urine output < 30 mL/hr or SCr >2 mg/dL, check with physician prior to giving K+ replacement. - K 3-4 mmol/L, administer KCl 40 mEq PO/NG x1 dose - K 2.5-2.9 mmol/L, administer KCl 60 mEq PO/NG x1 dose AND notify physician for additional dosing - K < 2.5 mmol/L notify physician for dosing Recheck serum potassium two hours after completion of appropriate replacement dose. Repeat this standing order x 2. Notify physician if serum potassium < 3.3 mmol/L after three replacements. Do NOT break or crush tablet potassium chloride SR (K-DUR) tablet Given 08/19/2018 40 mEq 40-60 mEq 04:19 CDT 40-60 mEq, Oral, NEEDED, Starting Sun08/16/18 at 0812, Until Sun08/19/18 at 1822, Other..., For potassium replacement, See admin instructions, If urine output < 30 mL/hr or SCr >2 mg/dL, check with physician prior to giving K+ replacement. - K 3-4 mmol/L, administer KCl 40 mEq PO/NG x1 dose - K 2.5-2.9 mmol/L, administer KCl 60 mEq PO/NG x1 dose AND notify physician for additional dosing - K < 2.5 mmol/L notify physician for dosing Recheck serum potassium two hours after completion of appropriate replacement dose. Repeat this standing order x 2. Notify physician if serum potassium < 3.3 mmol/L after three replacements. Do NOT break or crush tablet potassium chloride SR (K-DUR) tablet 60 Given 08/15/2018 60 mEq mEq 06:45 CDT 60 mEq, Oral, ONCE, 1 dose, Ledy 08/15/18 at 0630, - Tablet may be dispersed in water. Place tab in 30 mL of water for 40-60 seconds. - Gently swirl until fully dispersed. If particles remain after admin, add small amount of water and admin remaining content. - DO NOT CRUSH. Tablet may be split in half. potassium chloride SR (K-DUR) tablet 60 Given 08/15/2018 60 mEq mEq 14:10 CDT 60 mEq, Oral, ONCE, 1 dose, Ledy 08/15/18 at 1145, Do NOT break or crush tablet potassium chloride SR (K-DUR) tablet 60 Given 08/16/2018 60 mEq mEq 06:30 CDT 60 mEq, Oral, ONCE, 1 dose, 08/16/18 at 0530, Do NOT break or crush tablet potassium phosphate (K-PHOS ORIGINAL) Given 08/17/2018 2 tablets dispersable tablet 2 tablet 09:39 CDT 2 tablet, Oral, ONCE, 1 dose, 08/17/18 at 0715, DO NOT SWALLOW TABLET DISSOLVE IN WATER PRIOR TO ADMINISTRATION - The tablets are administered by dissolving two tablets in 6-8 ounces of water. - For best results, soak tablets in water for two to five minutes, or more if necessary, and stir. - If any tablet particles remain undissolved, they may be crushed and stirred vigorously to speed dissolution. Each tablet delivers 114 mg Phosphorus (3.6 mMol) and 3.7 mEq Potassium. potassium phosphate 15 mmol in dextrose Given - New 08/18/2018 15 mmol 63 mL/hr 5% (D5W) 250 mL IVPB (std) Bag 04:02 CDT 15 mmol, Intravenous, 250 mL, Administer over 4 Hours, ONCE, 1 dose, [place] 08/18/18 at 0315, Each 10mM K Phos delivers 14.7meq K+ NOTE: This is a HIGH ALERT Medication. sodium chloride 0.9 % infusion Given - New 08/15/2018 1,500 mL 500 mL, 500 mL, Intravenous, at 1,000 Bag 10:30 CDT mL/hr, BOLUS, 1 dose, Ledy 08/15/18 at 1000, with NICOM SODIUM CHLORIDE 0.9 % IV SOLP (Cabinet Override) NOW, 1 dose, Ledy 08/15/18 at 1315, Created by cabinet override sodium chloride PF 0.9% syringe 10 mL Given 08/17/2018 10 mL 10 mL, Intravenous, TWICE DAILY, First 09:38 CDT dose on Ledy 08/15/18 at 2100, Until Discontinued Given 08/17/2018 10 mL 21:04 CDT Given 08/18/2018 10 mL 08:32 CDT WATER FOR INJECTION, STERILE IJ SOLN Given 08/16/2018 20 mL (Cabinet Override) 12:17 CDT NOW, 1 dose, Sun08/16/18 at 1230, Created by cabinet override WATER FOR INJECTION, STERILE IJ SOLN Given 08/16/2018 20 mL (Cabinet Override) 23:22 CDT NOW, 1 dose, Sun08/16/18 at 2315, Created by cabinet override in this encounter
--- OUTSIDE RECORDS SUMMARY | 2018-08-30 13:32 | XMS REPORT | Encounter Summary ---
Author Author [facility] Organization [facility] Address Unknown Phone Unavailable Care Team Providers Care Radiology Services Manager Name Role Phone Jeny Garcia MD PCP Reason for Visit * Reason Comments Heme/Onc Care Encounter Details Date Type Department Care Team Description 07/30/2018 Office Visit The [facility] Perry Moseley MD Bilateral ureteral [facility] - IC Exam [address] obstruction [id number] [place] [address] [place] [address] [phone] Social History Tobacco Use Types Packs/Day Years [...] RN - 07/30/2018 1:00 PM CDT [facility] - Ic Exam Pre-Operative Instructions Surgical [...] multivitamin, red yeast rice, ERIC-e, saw palmetto, [place] wort, turmeric, valerian root, Vascepa, Vitamin A, Vitamin B complex, Vitamin C, Vitamin E ? You DO NOT need to stop: iron, magnesium, potassium 7 days prior to surgery: ? Stop anti-inflammatory medications such as ibuprofen (Advil, Motrin), naproxen (Aleve), Ester-Danforth, Excedrin, Midol, celecoxib (Celebrex), diclofenac (Voltaren), diflunisal, [...] evenings, nights, weekends, and holidays, contact [facility] bumper machine operator and request they contact the on-call Urology Resident at [phone]. in this encounter Progress Notes * Perry [...] options. in this encounter Plan of Treatment Not on fileas of this encounter Visit Diagnoses Diagnosis Bilateral ureteral obstruction
--- OUTSIDE RECORDS SUMMARY | 2018-08-30 13:32 | XMS REPORT | Encounter Summary ---
Author Author [facility] Organization [facility] Address Unknown Phone Unavailable Care Team Providers Care White Mixing Operator Name Role Phone Jeny Garcia MD PCP Encounter Details Date Type Department Care Team Description 07/30/2018 Prep for Case [facility] Perry Moseley MD [facility] - IC Exam [address] obstruction (Primary Dx) [address] [place] [address] [place] [address] [phone] Social History Tobacco Use Types Packs/Day Years [...]
--- OUTSIDE RECORDS SUMMARY | 2018-08-30 13:32 | XMS REPORT | Encounter Summary ---
Author Author [facility] Organization [facility] Address Unknown Phone Unavailable Care Team Providers Care Cigarette Tipper Name Role Phone Jeny Garcia MD PCP Encounter Details Date Type Department Care Team Description 08/15/2018 PAC Office Preoperative Assessment Perry Moseley MD Canceled Visit Clinic [address] [facility] (Patient-H[facility]) [facility] [address] [place] [address] [place] [address] [phone] Social History Tobacco Use Types Packs/Day Years [...]
--- OUTSIDE RECORDS SUMMARY | 2018-08-30 13:32 | XMS REPORT | Encounter Summary ---
Author Author [facility] Organization [facility] Address Unknown Phone Unavailable Care Team Providers Care Rifle Case Repairer Name Role Phone Jeny Garcia MD PCP Encounter Details Date Type Department Care Team Description 08/14/2018 Hospital [facility] Encounter [facility] [address] [place] [id number] Social History Tobacco Use Types Packs/Day Years [...] impairment: No 07/30/2018 as of this encounter Medications at Time [...] directed every [address] Take one tablet by mouth 08/19/2018 (PROTONIX) 40 mg tablet daily. levoFLOXacin (LEVAQUIN) Take one tablet by mouth 10 tablet 0 201708/24/2018 750 mg tabletIndications: every 24 hours for 10 Oral Option for days. Gram-Negative Bacteremia pantoprazole DR Take 40 mg by mouth twice 03/22/2018 08/19/2018 (PROTONIX) 40 mg daily. tabletIndications: gastroesophageal reflux disease as of this encounter Plan of Treatment Not on fileas of this encounter Procedures Procedure Name Priority Date/Time Associated Diagnosis Comments GENERAL RAD CHEST Routine 08/14/2018 Diagnosis unknown Results for this EXTERNAL IMAGING 12:00 AM CDT procedure are in the results section. in this encounter Visit Diagnoses Not on filein this encounter
--- OUTSIDE RECORDS SUMMARY | 2018-08-30 13:32 | XMS REPORT | Encounter Summary ---
Author Author [facility] Organization [facility] Address Unknown Phone Unavailable Care Team Providers Care Caustic Mixer Name Role Phone Jeny Garcia MD PCP Encounter Details Date Type Department Care Team Description 08/15/2018 Hospital [facility] Encounter Hospital Radiology [facility] [address] [place] [id number] Social History Tobacco Use Types Packs/Day Years [...] 40 mg daily. tabletIndications: gastroesophageal reflux disease torsemide(+) (DEMADEX) 20 Take 20 mg by mouth daily 08/19/2018 mg tabletIndications: with breakfast. Edema as of this encounter Plan of Treatment Not on fileas of this encounter Procedures Procedure Name Priority Date/Time Associated Diagnosis Comments GENERAL RAD ABDOMEN Routine 08/15/2018 Diagnosis unknown Results for this EXTERNAL IMAGING 12:00 AM CDT procedure are in the results section. in this encounter Visit Diagnoses Not on filein this encounter
--- OUTSIDE RECORDS SUMMARY | 2018-08-30 13:32 | XMS REPORT | Encounter Summary ---
Author Author [facility] Organization [facility] Address Unknown Phone Unavailable Care Team Providers Care As400 Operator Name Role Phone Jeny Garcia MD PCP Encounter Details Date Type Department Care Team Description 08/14/2018 Hospital [facility] Encounter Hospital [facility] [address] [place] [id number] Social History Tobacco Use Types Packs/Day Years [...]
--- OUTSIDE RECORDS SUMMARY | 2018-08-30 13:34 | XMS REPORT | Encounter Summary ---
Author Author [facility] Organization [facility] Address Unknown Phone Unavailable Care Team Providers Care Microsoft Dynamics Manager Architect Name Role Phone Jeny Garcia MD PCP Reason for Visit * Reason Comments Edema Bilateral leg edema, SOB, no urine output from neph tube * Auth/Cert Status Reason Specialty Diagnoses / Referred By Referred To Procedures Contact Contact Diagnoses Obstructive uropathy Bilateral leg edema Encounter Details Date Type Department Care Team Description 07/01/2018 Hospital Medicine Telemetry Darrick Lazo MD Obstructive uropathy - Encounter [facility] 4th fl Unit [address] [facility] 07/08/2018 [address] 10[address] [place] [address] [place] [address] [phone] [place] [address] [place] [address] [phone] Estela Avila DO [address] [place] [address] [phone] [place] [address] [place] [address] MS [facility] [place] [address] [phone] Social History Tobacco Use Types Packs/Day Years [...] date: 07/08/2018 Attending Physician: LOTTIE AGUILAR Service: [facility] 3405 Physician Summary completed by: Lottie Aguilar MD Reason for hospitalization: 67 year old female who was referred to ED from urology clinice 07/01 for exertional dyspnea and progressive BLE edema. Significant PMH: anxiety, depression, GERD, hypothyroidism, vitamin D deficiency , obesity with BMI 32.2 and recent prolonged admission at [facility] for MEE likely due to an [...] Range Color,UA YELLOW Turbidity,UA CLEAR CLEAR-CLEAR Specific [place]-Urine 1.010 1.003 - 1.035 pH,UA 6.0 5.0 [...] 07/01/18 2:31 PM Result Value Ref Range Yqjhhqfe-K-LSK 0.00 0.00 - 0.05 NG/ML BNP POC [...] Renal and urology were consulted. Work-up at [facility] was significant for the following studies: [...] (06/19) at OSH. -During her admission at [facility], her creatinine peaked at 9. Creatinine [...] primary care provider refer her to a coin machine collector supervisor closer to home. Nephrostomy tubes should be [...] debility. PT and OT recommended home with operations and intelligence assistant versus home health. 5. Diet. She was discharged on a low sodium diet. Dietitian was consulted per patient's request for low-sodium education. 6. All other chronic medical issues were stable, so no further changes were made other outpatient regimen. 7. Disposition Discharge to home with [facility]. Condition at Discharge: Stable Discharge Diagnoses: Hospital Problems Active Problems Hydronephrosis Obstructive uropathy Bilateral leg edema Anxiety Major depressive disorder with single episode, in remission (HCC) Gastroesophageal reflux disease without esophagitis Hypothyroidism due to acquired atrophy of thyroid Vitamin D deficiency MEE (acute kidney injury) ([facility]) Pyuria Volume overload Acute deep vein thrombosis (DVT) of distal end of right lower extremity ([facility]) Debility Obesity (BMI 30-39.9) Surgical Procedures: [...] or concerns regarding your hospital stay. Call [phone] Discharging attending physician: LOTTIE AGUILAR [[id number]] Low Sodium Diet You will need to [...] will also need a referral to a coin machine collector supervisor closer to your home. Current Discharge Medication [...] Op with Perry Moseley MD [facility] - IC Exam (CC Exam) [id number] [facility] [facility] [address] Pending items needing follow up: none Signed: Lottie Aguilar MD 07/08/2018 cc: Primary Care Physician: Jeny Garcia Verified in this encounter Discharge Instructions * Discharge Instr - Case Management - Roxi Decker RN - 07/08/2018 9:55 AM CDT You have been set up with [facility] for shelter, PT and OT. . They will contact you later today or tomorrow to set up your first appointment. It you don't hear from them by tomorrow, please contact them at ([phone]). * Patient Instructions - Cyndie Verasarecharles RN [...] or concerns related to the procedure, call [phone] for Sunday-Sunday 7-5. After-hours and weekends, please call [phone] and ask for the Interventional Intensive Care Nurse on-call. in this encounter Medications at Time [...] Vitamin D deficiency MEE (acute kidney injury) ([facility]) Pyuria Volume overload Acute deep vein thrombosis (DVT) of distal end of right lower extremity ([facility]) Debility Obesity (BMI 30-39.9) Aracelis Espinal is [...] day - she would like to find coin machine collector supervisor close to home in [place] and has PCP appointment his week Patient discussed with primary team Marisol Arias MD Pager [phone] Subjective Aracelis Espinal is a 67 y.o. [...] hours. Invalid input(s): PC02A * Vanessa Castro, FOOD WRITER - 07/08/2018 10:50 AM CDT PHYSICAL THERAPY [...] as indicated. Therapist: Vanessa Castro, Physical therapist operations and intelligence assistant Date: 07/08/2018 * Lottie Aguilar MD [...] changed Follow up: care plan on-going * Lottei Aguilar MD - 07/07/2018 7:20 AM CDT Formatting of this note may be different from the original. Hospitalist progress note Aracelis Teddy Admission Date: 07/01/2018 Today's Date: 07/07/18 Changes for today assessment and plan noted in bold. Assessment/Plan: 67 year old female with anxiety, depression, GERD, hypothyroidism, vitamin D deficiency, and recent prolonged admission at [facility] for MEE likely due to an [...] (06/19) at OSH. -During her admission at [facility], her creatinine peaked at 9. Creatinine [...] debility. PT and OT recommended home with operations and intelligence assistant versus home health. FEN: -No IVF -Hypokalemia. Replace. -Low Na diet with 2L fluid restriction. Dietitian consult per patient's request for low-sodium education. DVT ppx: Eliquis Full code. Confirm with patient. Kimber (sister) is DPOA: [phone]. Disp: Continue inpatient care. Anticipate discharge Sunday. Will need resumption [facility] at discharge. I spent a total of 45 minutes in pt care today with an estimated 20 minutes spent reviewing chart and coordinating care. Reminder of time was spent examining patient, discussing care plan, and answering patient questions in the patient's room. Complexity of medical decision making is high because of the multi-system nature of disease process. Lottie Aguilar MD Hospitalist [phone] __ Subjective: No overnight events. Difficulty sleeping [...] urine noted in bag Laboratory: Recent Labs 07/05/18 0552 07/06/1841207/07/18605 NA 135* 134* 134* K 3.8 [...] results for input(s): PHART, PCO2A, PO2ART, HCO3A, [id number] in the last 72 hours. * Leydi [...] D deficiency, and recent prolonged admission at [facility] for MEE likely due to an [...] (06/19) at OSH. -During her admission at [facility], her creatinine peaked at 9. Creatinine [...] debility. PT and OT recommended home with operations and intelligence assistant versus home health. FEN: -No IVF -Lytes ok -Low Na diet with 2L fluid restriction. Dietitian consult per patient's request for low-sodium education. DVT ppx: Eliquis Full code. Confirm with patient. Kimber (sister) is DPOA: [phone]. Disp: Continue inpatient care. Anticipate discharge Sunday. Will need resumption [facility] at discharge. I spent a total of 45 minutes in pt care today with an estimated 20 minutes spent reviewing chart and coordinating care. Reminder of time was spent examining patient, discussing care plan, and answering patient questions in the patient's room. Complexity of medical decision making is high because of the multi-system nature of disease process. Lottie Aguilar MD Hospitalist [phone] __ Subjective: No overnight events. Feeling better. [...] CA 9.3 9.3 9.4 Recent Labs 07/04/18 0607/05/18 0552 07/06/18 0413 ALKPHOS 46 48 49 AST 11 10 12 ALT 4* 4* 4* TOTPROT 6.6 6.5 6.6 TOTBILI 0.4 0.4 0.4 ALBUMIN 3.4* 3.4* 3.5 Recent Labs 07/04/1860207/05/18 0552 07/06/18 0413 HGB 9.6* 10.2* 9.4* HCT 28.7* 29.7* 27.8* WBC 8.1 8.2 8.3 PLTCT 385 374 383 No results for input(s): PHART, PCO2A, PO2ART, HCO3A, [id number] in the last 72 hours. * Debi [...] with primary team Marisol Arias MD Pager [phone] Subjective Aracelis Espinal is a 67 y.o. [...] 1125) Temp: 36.8 C (98.3 F) (07/05 1125) [...] 1.47 mg/dL (H)) . Vitals: 07/01/18 1223 07/01/18209907/02/18 0909 Weight: 83.9 kg (185 lb) 85.1 kg (187 lb 9.8 oz) 85 kg (187 lb 6.3 oz) No results for input(s): PHART, PO2ART in the last 72 hours. Invalid input(s): PC02A * Vanessa Castro, FOOD WRITER - 07/05/2018 10:41 AM CDT PHYSICAL THERAPY PROGRESS NOTE MOBILITY: Mobility Progressive Mobility Level: Walk laps Distance Walked (feet): 400 ft Level of Assistance: Independent Assistive Device: None Time Tolerated: 11-30 minutes Activity Limited By: Fatigue SUBJECTIVE: Subjective Significant hospital events: 67 y.o. F with history of anxiety, depression, HLD with recent prolonged admission to [facility] in [place] for acute renal failure. She was found [...] for: Stairs Therapist: Vanessa Castro, Physical therapist operations and intelligence assistant Date: 07/05/2018 * Debi Zhao RN [...] depression, HLD with recent prolonged admission to [facility] in [place] for acute renal failure. She was found [...] renal failure by PCP and sent to [facility], was admitted for about 3 weeks. [...] (Last 24 hours) Glucose: (!) 110 (07/05/18 4561) Radiology and other Diagnostics Review: Pertinent radiology reviewed. Estela Ghosh DO Pager [phone] * Marisol Arias MD - 07/04/2018 2:11 [...] with primary team Marisol Arias MD Pager [phone] Subjective Aracelis Espinal is a 67 y.o. [...] depression, HLD with recent prolonged admission to [facility] in [place] for acute renal failure. She was found [...] renal failure by PCP and sent to [facility], was admitted for about 3 weeks. [...] Pertinent radiology reviewed. Estela Ghosh DO Pager [phone] * Marbella Espana RN - 07/04/2018 5:25 AM CDT Shift: Night Mentation: A/O x4 Cardiac: S1, S2, regular rhythm Respiratory: RA, non-labored GI/: voids, last BM: 07/02 Nutrition: went NPO at [place] Activity: SBA Pain: no c/o pain Family: no family present Follow up: Plan of care is on going * Paris Rea - 07/03/2018 4:33 PM CDT Reason for Visit: Rental Sales Representative Rounds Marlen/Adventism: Unknown Encounter: Patient stated she didn't really need a visit from the Rental Sales Representative, she just needed to get her "plumbing fixed." Patient stated she was receiving good care, but was more that ready to be on her way to a resolution to her health issues. Rental Sales Representative stated she hoped she had resolution very soon, and took her leave. The spiritual care team is available as needed, 24/7, through the campus switchboard ([phone]). For immediate response, please page [phone]. For a response within 24 hours, please submit an order in O2 for a drywall application supervisor consult or call the administrative voicemail at [phone]. * Marci Cha RN - 07/03/2018 2:59 [...] with primary team Marisol Arias MD Pager [phone] Subjective Aracelis Espinal is a 67 y.o. [...] Harjit Wellington M.D. PGY-3 Please page urology filler leaf cutter long with questions SUBJECTIVE: Overnight events: No acute events. Pain controlled.NPO since last night. ambulating. OBJECTIVE: Vital Signs: Most Recent Vital Signs: Past 24 Hours BP: 114/63 (07/03 751) Temp: 36.7 C (98.1 F) (07/03 751) Pulse: 72 (07/03 751) Respirations: 18 PER MINUTE (07/03 751) SpO2: 100 % (07/03 751) O2 Delivery: None (Room Air) (07/03 751) BP: (110-145)/(57-85) Temp: [36.7 C (98 F)-36.8 [...] depression, HLD with recent prolonged admission to [facility] in [place] for acute renal failure. She was found [...] CMS G Code Modifier for Basic Mobility: G-Codes: Mobility G8978 Current Status: 20-39% Impairment [...] discharge NOTE Patient Name: Aracelis Espinal Room/Bed: RX8978/02 Admitting Diagnosis: Obstructive uropathy Bilateral leg edema Past Medical History: Diagnosis Date Anemia Anxiety disorder Cataract Colon polyps Depression Dyslipidemia Thyroid disorder Ulcer of the stomach and intestine 67 y.o. F with history of anxiety, depression, HLD with recent prolonged admission to [facility] in [place] for acute renal failure. 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 Vision Current Vision: (hx [...] OT needs identified. Therapist: [place] [id number] Date: 07/03/2018 * Estela Ghosh, - 07/03/2018 7:57 AM CDT Formatting of this note may be different from the original. General Progress Note Name: Aracelis Espinal Today's Date: 07/03/2018 Admission Date: 07/01/2018 LOS: 2 days Assessment/Plan: Active Problems: Obstructive uropathy Bilateral leg edema Ms Espinal is a 67 y.o. F with history of anxiety, depression, HLD with recent prolonged admission to [facility] in [place] for acute renal failure. She was found [...] renal failure by PCP and sent to [facility], was admitted for about 3 weeks. [...] additional dose of IV lasix today. Continue FOOD WRITER lasix. > Discussed with Dr Arias, concern [...] Pertinent radiology reviewed. Estela Ghosh DO Pager [phone] * Marbella Espana RN - 07/03/2018 5:52 AM CDT Shift: Night Mentation: A/O x4 Cardiac: S1, S2, regular rhythm Respiratory: RA, non-labored GI/: voids, last BM: 07/02 Nutrition: went NPO at [place] Activity: SBA [...] depression, HLD with recent prolonged admission to [facility] in [place] for acute renal failure. She was found [...] renal failure by PCP and sent to [facility], was admitted for about 3 weeks. [...] lasix 40mg x1 and assess response. Continue FOOD WRITER lasix tomorrow > Urine culture negative, pyuria [...] Pertinent radiology reviewed. Estela Ghosh DO Pager [phone] * Cheikh Swain RN - 07/02/2018 3:14 PM CDT Aspirated packing [...] old obese female patient who presented to [facility] in [place] on 06/03/2018 with complaints of fatigue, decreased [...] DVT In bilateral lower extremity. 35 minutes [id number]-[id number]-face time was spent reviewing outside medical record. in this encounter H&P Notes * Pearl Villa, MSN,TREASURY DIRECTOR - 07/04/2018 7:31 AM CDT Formatting of [...] tablet 40 mg 40 mg Oral QDAY() [Jan] senna/docusate (SENOKOT-S) tablet 1 tablet 1 [...] previous H&P performed on 07/03/18. Pearl Villa, MSN,TREASURY DIRECTOR Pager [phone] * Jessica Baptiste APRN - 07/02/2018 10:50 AM CDT Formatting of this note may be different from the original. Pre Procedure History and Physical/Sedation Plan Procedure Date: 07/02/2018 Planned Procedure(s): Right nephrostomy tube placement. Indication for exam: Hydronephrosis. Chief Complaint: See above. Previous Anesthetic/Sedation History: Denies adverse events. Allergies: Codeine Medications: Scheduled Meds: ertapenem (INVANZ) IVP 1 g 1 g Intravenous Q24H* [JAN Hold] furosemide (LASIX) tablet 40 mg [...] performed on 07/02/18. Jessica Baptiste APRN Pager [phone] * Jennifer Esposito MD - 07/01/2018 10:12 PM CDT Formatting of this note may be different from the original. Admission History and Physical Examination Name: Aracelis Espinal Admission Date: 07/01/2018 Assessment/Plan: Active Problems: Obstructive uropathy Bilateral leg edema 67 y.o. female with past medical history significant for anxiety, depression and dyslipidemia who had a recent prolonged hospitalization at [facility] in [place] where she presented with nausea vomiting and [...] who had a recent prolonged hospitalization at [facility] in [place] where she presented with nausea vomiting and [...] Range Color,UA YELLOW Turbidity,UA CLEAR CLEAR-CLEAR Specific [place]-Urine 1.010 1.003 - 1.035 pH,UA 6.0 5.0 [...] 07/01/18 2:31 PM Result Value Ref Range Ilpfvaxv-Y-KFG 0.00 0.00 - 0.05 NG/ML BNP POC [...] edema or fibrosis. Finalized by Jean Paul Culvre M.D. on 2017 4:23 PM. Dictated by Jean Paul Culver M.D. on 07/01/2018 4:18 PM. JENNIFER ESPOSITO MD Pager [phone] in this encounter Consult Notes * Deidre [...] D deficiency, and recent prolonged admission at [facility] for MEE likely due to an [...] and denies any concern for wt loss FOOD WRITER. No GI distress. Still with 2+ pitting [...] flush catheter today Marisol Arias MD Pager [phone] History Reason for Consult: MEE HPI: Aracelis [...] once nephrostomy tubes in place Please call filler leaf cutter long urology resident with questions. Discussed and formulated plan of care with staff surgeon, Dr. Moseley. Fany Andrea MD Urology Resident __ HPI: Aracelis Espinal is a 67 y.o. female with history of bilateral hydronephrosis identified when she presented to [facility] 06/03/18 with Cr 9.3 complaining of [...] Planning Discharge Planning: Home Health -[facility]in[facility] notified of patient discharging to home today. Orders and AVS faxed to [facility]. Pt's AVS updated with contact information of [facility]. ? Medication Needs Medication Needs: Medication Prior-Auth -NCM notified that patient will discharge to home with Eliquis. Pt already provided with a 30 day free card. NCM notified [facility] to see if prescription will need a PA. PA not needed. Pt's insurance will cover medication. ? Financial ? Legal ? Other Disposition ? Expected Discharge Date Expected Discharge Date: 07/07/18 ? Transportation Does the patient need discharge transport arranged?: No Transportation Name, Phone and Availability #1: sister and Win are living in [facility] Does the patient use Medicaid Transportation?: No ? Next Level of Care (Acute Psych discharges only) ? Discharge Disposition Durable Medical Equipment No service has been selected for the patient. [facility] Destination No service has been selected for the patient. Home Care Service Request Status Selected Specialties Address Phone Number Fax Number [facility] [address] [facility] [address] [phone] Dialysis/Infusion No service has been selected for the patient. Roxi Decker MSN, burial vault deliverer and installer [phone] Pager *[phone] * Case Mgmt DC Plan - Juan Panchal - 07/05/2018 3:11 PM CDT Formatting of this note may be different from the original. Case Management Progress Note NAME:Aracelis Espinal :1949 AGE: 67 y.o. ADMISSION DATE: 07/01/2018 DAYS ADMITTED: LOS: 4 days Todays Date: 07/05/2018 Plan Anticipate DC home with family support, and resumption of [facility]. Nurse Import/Export Administrator Weekend Needs Instructions for CM W/E Staff: Please notify [facility] of DC, and have Dr. Reeves sign orders and send signed orders, updated clinical information and AVS to [facility]. Teaching Needs Prior to DC: [...] Home Health Anticipate DC home with [facility], discussed with intake 07/04/2018 ? Medication Needs Medication Needs: Prescription Assistance Program NCM provide Eliquis 30 day free copay card. ? Financial ? Legal ? Other Disposition ? Expected Discharge Date Expected Discharge Date: 07/07/18 ? Transportation Does the patient need discharge transport arranged?: No Transportation Name, Phone and Availability #1: sister and Win are living in [facility] Does the patient use Medicaid Transportation?: No ? Next Level of Care (Acute Psych discharges only) ? Discharge Disposition Durable Medical Equipment No service has been selected for the patient. Destination No service has been selected for the patient. Home Care Service Request Status Selected Specialties Address Phone Number Fax Number [facility] Selected Home Health Services [address] [facility] [address] [facility] Dialysis/Infusion No service has been selected for the patient. Juan Panchal RN BSN Integrated Nurse Import/Export Administrator [phone]/ [phone] * Procedures (Immed Post or Bedside) - [...] Well Post-Procedure Condition: stable KATLIN Still Pager [phone] * Procedures (Immed Post or Bedside) - [...] Post-Procedure Condition: stable Jed Dsouza MD Pager [phone] * Case Mgmt DC Plan - Juan Panchal - 07/03/2018 4:29 PM CDT Formatting of this note may be different from the original. Case Management Progress Note NAME:Aracelis Espinal :1949 AGE: 67 y.o. ADMISSION DATE: 07/01/2018 DAYS ADMITTED: LOS: 2 days Todays Date: 07/03/2018 Plan Anticipate DC home with resumption of [facility]. Interventions ? Support ? Info or Referral ? Discharge Planning Discharge Planning: Home Health NCM contact [facility] wedger machineMaggy. Confirm patient is current with RN , PT/OT services, and Dr. Garcia to follow. ? Medication Needs ? Financial ? Legal ? Other Disposition ? Expected Discharge Date Expected Discharge Date: 07/05/18 ? Transportation Does the patient need discharge transport arranged?: No Transportation Name, Phone and Availability #1: sister and Win are living in [facility] Does the patient use Medicaid Transportation?: No ? Next Level of Care (Acute Psych discharges only) ? Discharge Disposition Durable Medical Equipment No service has been selected for the patient. Destination No service has been selected for the patient. Home Care Service Request Status Selected Specialties Address Phone Number Fax Number [facility] Selected Home Health Services [address] [facility] [address] [phone] Dialysis/Infusion No service has been selected for the patient. Juan Panchal SEPTIC TANK INSTALLER Integrated Nurse Import/Export Administrator [phone] * Procedures (Immed Post or Bedside) - [...] via family trasnport with resumption of [facility] when medically stable. Plan: CM Assessment, Assist PRN with SW/NCM Services, Discharge Planning for Home Anticipated SW met with pt who confirms after being in [facility] for 3 weeks, pt DC on 06/27 with L neph tube and [facility] . Pt denies any concerns with managing Neph tube and drain at home. Pt reports HH was only able to come to home once FOOD WRITER but report they were helpful and would like HH resumed at [place]. Pt denies any concern for DC home with R and L neph tubes. SW notified NCM need for resumption of [facility] at [place]. Pt consulted-recommending home with . PLan for Urology to remove stents at bedside today. Renal following. Patient Address/Phone [address] [phone] (home) Emergency Contact Extended Emergency Contact Information Primary Emergency Contact: Kimber [facility] Relation: Sister Healthcare Directive Healthcare Directive: Yes, patient has a healthcare directive Type of Healthcare Directive: Durable power of estate planning attorney for healthcare Location of Healthcare Directive: Current and verified in document scanning system Would patient like to fill out a (a new) Healthcare Directive?: N/A Psych Advance Directive (Psych unit only): No, patient does not have a Psych Advance Directive Transportation Does the patient need discharge transport arranged?: No Transportation Name, Phone and Availability #1: sister and Win are living in [facility] Does the patient use Medicaid Transportation?: No [...] ? PCP Jeny Garcia, , ? Pharmacy [facility] [address] [place] [phone] ? Durable Medical Equipment Durable Medical Equipment at home: None ? Home Health Receiving home health: Yes Agency name: current with chinmay willis to manage L neph tube and dressing changes FOOD WRITER ? Hemodialysis or Peritoneal Dialysis Undergoing hemodialysis or peritoneal dialysis: No ? Tube/Enteral Feeds Receive tube/enteral feeds: No ? Infusion Receive infusions: No ? Private Duty Private duty help used: No ? Home and Community Based Services Home and community based services: No ? Trent Shivam Newman White: No ? Hospice Hospice: No ? Outpatient Therapy PT: No OT: No PLANT HR MANAGER: No ? Nursing Home Facility/Chcf SNF: No NH: No ? Inpatient Rehab IPR: No ? Long-Term Acute Care Hospital LTACH: No ? Acute Hospital Stay Acute Hospital Stay: Yes Was patient's stay within the last 30 days?: Yes When did patient receive care?: [facility] on 06/27 Readmission Code Group: 5. Medical [...] Post-Procedure Condition: stable Jed Dsouza MD Pager [phone] * Case Mgmt DC Plan - Xiomara Bragg - 07/02/2018 11:10 AM CDT Plan: DCP Ongoing: SW anticipates pt to DC home with possible HH penidng needs at [place]. Intervention: Sw attempted to meet with pt [...] to MP E, if questions please page [phone] * ED Notes - Xiomara Langley RN - 07/01/2018 7:24 PM CDT Report given to ELADIO Tyson. * ED Notes - Mary Ann Monroe RN - 07/01/2018 7:08 PM CDT [id number]. Ready. Please call Chelsie @ [phone] for report * ED Notes - Xiomara [...] (06/03/18), Left nephrostomy tube in place(06/19/18) at [facility]. Patient reports having worsening edema from [...] Range Color,UA YELLOW Turbidity,UA CLEAR CLEAR-CLEAR Specific [place]-Urine 1.010 1.003 - 1.035 pH,UA 6.0 5.0 [...] 5 POC TROPONIN Result Value Ref Range Hhnetbtk-Y-PNF 0.00 0.00 - 0.05 NG/ML BNP POC [...] Lazo MD * ED Notes - Theresa Lazar, ELADIO - 07/01/2018 1:35 PM CDT Pt arrives to ED [address] with several complaints. Pt reports she spent three weeks at [facility] in [place] with renal failure and received dialysis. Reports [...] Comments: in this encounter Plan of Treatment Name Priority Associated Diagnoses Order Schedule BASIC [...] Address City/State/Zipcode Phone Number MAIN LAB [address] [place] [address] * CBC AND DIFF (07/08/2018 5:46 AM) [...] MAIN LAB Specimen Blood Performing Organization Address City/[facility]/Zipcode Phone Number [facility] [address] [place] [address] * COMPREHENSIVE METABOLIC PANEL (07/07/2018 6:06 AM) [...] for questions. Specimen Blood Performing Organization Address City/[facility]/Zipcode Phone Number [facility] [address] [place] [address] * CBC AND DIFF (07/07/2018 6:06 AM) [...] City/State/Zipcode Phone Number [facility] [address] [place] [address] * COMPREHENSIVE METABOLIC PANEL (07/06/2018 4:13 AM) [...] Address City/State/Zipcode Phone Number [facility] [address] [place] [address] * CBC AND DIFF (07/06/2018 4:13 AM) [...] City/State/Zipcode Phone Number MAIN LAB [address] [place] [address] * COMPREHENSIVE METABOLIC PANEL (07/05/2018 5:52 AM) [...] City/State/Zipcode Phone Number MAIN LAB [address] [place] [address] * CBC AND DIFF (07/05/2018 5:52 AM) [...] City/State/Zipcode Phone Number [facility] [address] [place] [address] * IR CENTRAL VENOUS CATHETER (07/04/2018 4:45 PM) Impressions Performed At Uneventful removal of tunneled right IJ catheter as described. [facility] RAD RESULTS IGilberto M.D, the attending radiologist, was present [...] needle. Access was maintained with a 6 Kyrgyz sheath. A 5 Kyrgyz pigtail catheter was advanced over a 0.035 [...] needle. Access was maintained with a 6 Kyrgyz sheath. A 5 Kyrgyz pigtail catheter was advanced over a 0.035 [...] for questions. Specimen Blood Performing Organization Address City/[facility]/Zipcode Phone Number MAIN LAB [address] [place] [address] * CBC AND DIFF (07/04/2018 6:03 AM) [...] MAIN LAB Specimen Blood Performing Organization Address City/[facility]/Zipcode Phone Number [facility] [address] [place] [address] * PROTEIN/CR RATIO,UR RAN (07/03/2018 2:00 PM) Protein, Random 10 MG/DL [facility] Creatinine, Random 32 MG/DL [facility] Protein/CR ratio 0.3 [facility]IN [facility] Specimen Urine - Urine Performing Organization Address [facility]/Zipcode Phone Number MAIN LAB [address] [place] [address] * COMPREHENSIVE METABOLIC PANEL (07/03/2018 6:43 AM) [...] for questions. Specimen Blood Performing Organization Address City/[facility]/Zipcode Phone Number [facility] [address] [place] [phone] * CBC AND DIFF (07/03/2018 6:43 AM) [...] MAIN LAB Specimen Blood Performing Organization Address City/[facility] Phone Number [facility] [address] [place] [phone] * IRON + BINDING CAPACITY + %SAT+ FERRITIN (07/03/2018 6:43 AM) Iron 38 (L) 50 - 160 MCG/DL [facility] Iron Binding-TIBC 285 270 - 380 MCG/DL [facility]IN [facility] % Saturation 13 (L) 28 - 42 % [facility] Ferritin 590 (H) 10 - 200 NG/ML [facility]IN [facility] Specimen Blood Performing Organization Address City/[facility]/Zipcode Phone Number [facility] [address] [place] [address] * IR ASPIRATION/DRAIN (07/02/2018 12:13 PM) Impressions [...] set was then removed and an 8 Kyrgyz pigtail catheter was advanced into the renal pelvis. The Pierson loop was formed. Contrast was instilled into [...] set was then removed and an 8 Kyrgyz pigtail catheter was advanced into the renal pelvis. The Pierson loop was formed. Contrast was instilled into [...] OTHER OUTSIDE LAB S' Cardiology Ultrasound Siemens [id number] OTHER OUTSIDE LAB Machine Left Ventricle Mass [...] systolic PA pressure=18 mmHg Performing Organization Address City/[facility]/Zipcode Phone Number OTHER OUTSIDE LAB * COMPREHENSIVE [...] Number [facility] [address] [place] [address] * CBC AND DIFF (07/02/2018 6:18 AM) White Blood Cells 7.9 4.5 - 11.0 K/UL [facility]IN [facility] RBC 3.13 (L) 4.0 - 5.0 M/UL [facility] Hemoglobin 8.9 (L) 12.0 - 15.0 GM/DL [facility]IN [facility] Hematocrit 27.3 (L) 36 - 45 % MAIN LAB MCV 87.2 80 - 100 FL MAIN LAB MCH 28.5 26 - 34 PG MAIN LAB MCHC 32.7 32.0 - 36.0 G/DL MAIN LAB RDW 16.0 (H) 11 - 15 % [facility] MAIN [facility] Platelet Count 378 150 - 400 K/UL MAIN LAB MPV 7.0 7 - 11 FL MAIN LAB Neutrophils 72 41 - 77 % [facility] MAIN [facility] Lymphocytes 16 (L) 24 - 44 % MAIN LAB Monocytes 8 4 - 12 % [facility] MAIN [facility] Eosinophils 3 0 - 5 % [facility] Basophils 1 0 - 2 % [facility] MAIN [facility] Absolute Neutrophil Count 5.70 1.8 - 7.0 K/UL [facility] MAIN [facility] Absolute Lymph Count 1.30 1.0 - 4.8 K/UL MAIN LAB Absolute Monocyte Count 0.70 0 - 0.80 K/UL MAIN LAB Absolute Eosinophil Count 0.20 0 - 0.45 K/UL [facility] MAIN [facility] Absolute Basophil Count 0.00 0 - 0.20 K/UL MAIN LAB Specimen Blood Performing Organization Address City/[facility] Phone Number MAIN LAB [address] [place] [address] * TSH WITH FREE T4 REFLEX (07/02/2018 6:18 AM) TSH 2.360 0.35 - 5.00 MCU/ML MAIN LAB Specimen Blood Performing Organization Address [facility] Phone Number MAIN LAB [address] [place] [address] * BNP (B-TYPE NATRIURETIC PEPTI) (07/02/2018 6:18 AM) B Type Natriuretic 71.0 0 - 100 PG/ML MAIN LAB Peptide Specimen Blood Performing Organization Address [facility] Phone Number MAIN LAB [address] [place] [address] * PHOSPHORUS (07/02/2018 6:18 AM) Phosphorus 4.9 (H) 2.0 - 4.0 MG/DL MAIN LAB Specimen Blood Performing Organization Address [facility] Phone Number MAIN LAB [address] [place] [address] * MAGNESIUM (07/02/2018 6:18 AM) Magnesium 2.0 1.6 - 2.6 mg/dL [facility] MAIN [facility] Specimen Blood Performing Organization Address City/[facility]/Zipcode Phone Number MAIN LAB [address] [place] [address] * CHEST SINGLE VIEW (07/02/2018 6:07 AM) [...] on 07/01/2018 4:18 PM. Performing Organization Address [facility] Phone Number RAD RESULTS * BNP POC ER (07/01/2018 2:31 PM) BNP POC 123.0 (H) 0 - 100 PG/ML [facility] MAIN [facility] Performing Organization Address [facility] Phone Number MAIN LAB [address] [place] [address] * POC TROPONIN (07/01/2018 2:31 PM) Mdepfchk-L-RSK 0.00 0.00 - 0.05 NG/ML [facility] MAIN [facility] Performing Organization Address [facility] Phone Number [facility] [address] [place] [address] * CULTURE-URINE W/SENSITIVITY (07/01/2018 2:30 PM) Battery Name URINE CULTURE [facility] Specimen Description URINE [facility] Special Requests NONE [facility] Culture NO GROWTH [facility] Report Status FINAL [facility] 07/02/2018 Specimen Urine Performing Organization Address [facility] Phone Number MAIN LAB [address] [place] [address] * UA REFLEX CULTURE LABEL (07/01/2018 2:30 PM) UA Reflex Culture LAB LABEL [facility] Specimen Urine Performing Organization Address [facility] Phone Number [facility] [address] [place] [address] * URINALYSIS MICROSCOPIC REFLEX TO CULTURE (07/01/2018 [...] MAIN LAB Specimen Urine Performing Organization Address [facility] [email or web address] Phone Number [facility] [address] [place] [address] * URINALYSIS DIPSTICK REFLEX TO CULTURE (07/01/2018 2:30 PM) Color,UA YELLOW [facility] Turbidity,UA CLEAR CLEAR-CLEAR [facility] Specific [place]-Urine 1.010 1.003 - 1.035 [facility] MAIN LAB [...] MAIN LAB Specimen Urine Performing Organization Address [facility] Phone Number MAIN LAB [address] [place] [address] * MAGNESIUM (07/01/2018 1:35 PM) Magnesium 2.0 1.6 - 2.6 mg/dL [facility] MAIN [facility] Specimen Blood Performing Organization Address [facility]/[employer] Phone Number [facility] [address] [place] [address] * COMPREHENSIVE METABOLIC PANEL (07/01/2018 1:35 PM) [...] Address City/State/Zipcode Phone Number MAIN LAB [address] [place] [address] * CBC AND DIFF (07/01/2018 1:35 PM) [...] Address City/State/Zipcode Phone Number [facility] [address] [place] [address] in this encounter Visit Diagnoses Diagnosis Hydronephrosis, unspecified hydronephrosis type - Primary Obstructive uropathy Urinary obstruction, unspecified Bilateral leg edema Edema Other hypervolemia Acute deep vein thrombosis (DVT) of distal end of right lower extremity ([facility]) Anxiety Anxiety state, unspecified Major depressive disorder with single episode, in remission ([facility]) Gastroesophageal reflux disease without esophagitis Esophageal reflux Hypothyroidism due to acquired atrophy of thyroid Vitamin D deficiency Unspecified vitamin D deficiency MEE (acute kidney injury) ([facility]) Acute kidney failure, unspecified Pyuria Other nonspecific [...] CDT 50 mcg, Intravenous, ONCE, 1 dose, [facility] 07/04/18 at 0745 fentaNYL citrate PF (SUBLIMAZE) Given 07/02/2018 50 mcg injection 11:59 CDT INTRA-PROCEDURE MED, Starting Sun07/02/18 at 1159, Until Sun07/02/18 at 1159 fentaNYL citrate PF (SUBLIMAZE) Given 07/04/2018 50 mcg injection 08:51 CDT INTRA-PROCEDURE MED, Starting Ledy 07/04/18 at 0851, Until Sun07/04/18 at 0851 furosemide (LASIX) injection 40 mg Given 07/02/2018 40 mg 40 mg, Intravenous, ONCE, 1 dose, Tue 15:36 CDT 07/02/18 at 1430, PROTECT FROM LIGHT furosemide (LASIX) injection 40 mg Given 07/03/2018 40 mg 40 mg, Intravenous, ONCE, 1 dose, Wed 14:01 CDT 07/03/18 at 1345, PROTECT FROM LIGHT furosemide (LASIX) injection 40 mg Given 07/04/2018 40 mg 40 mg, Intravenous, DAILY, First dose on 11:22 CDT Ledy 07/04/18 at 1115, Until Discontinued, PROTECT FROM [...] Given 07/02/2018 1 mg INTRA-PROCEDURE MED, Starting e 11:57 CDT 07/02/18 at 1157, Until Sun07/02/18 at 1157 nicotine (NICODERM CQ STEP 1) 21 mg/day Patch/Topica 07/06/2018 1 patch Arm, Right patch 1 patch l Applied 08:43 CDT 1 patch, Transdermal, Administer over 24 Hours, EVERY 24 HOURS, First dose on Sun07/01/18 at 2000, Until Discontinued Patch/Topical Applied 07/07/2018 1 patch Arm, Left 08:36 CDT Patch/Topical Applied 07/08/2018 1 patch Shoulder, 10:31 CDT Right ondansetron (ZOFRAN) tablet 4 mg 4 mg, Oral, EVERY 6 HOURS PRN, Starting 07/06/18 at 1719, Until Sun07/08/18 at 1513, Nausea/Vomiting PO pantoprazole DR (PROTONIX) tablet 40 mg Given 07/06/2018 40 mg 40 mg, Oral, DAILY, First dose on Sun 08:11 CDT 07/01/18 at 2100, Until Discontinued, [...] Intravenous, ONCE, 1 Bag 09:23 CDT dose, [facility] 07/04/18 at 0745, Give post procedure in this encounter
--- OUTSIDE RECORDS SUMMARY | 2018-08-30 13:34 | XMS REPORT | Encounter Summary ---
Author Author [facility] Organization [facility] Address Unknown Phone Unavailable Care Team Providers Care Hydrogen Treater Name Role Phone No Pcp, Na PCP Unavailable Jeny Garcia MD PCP Encounter Details Date Type Department Care Team Description 06/27/2018 Ancillary Rad Outpatient, Radiologist Diagnosis unknown Orders [address] [place] [address] Social History Tobacco Use Types Packs/Day Years Used Date Never Assessed Sex Assigned at Date Recorded Not on file as of this encounter Plan of Treatment Not on fileas of this encounter Results * MRI PELVIS [...]
--- OUTSIDE RECORDS SUMMARY | 2018-08-30 13:34 | XMS REPORT | Encounter Summary ---
Author Author [facility] Organization [facility] Address Unknown Phone Unavailable Care Team Providers Care Strike Operations Officer Name Role Phone PCP Unavailable Encounter Details Date Type Department Care Team Description 06/25/2018 Hospital [facility] Encounter Hospital Radiology [facility] [address]nd fl [address] [place], [place] [id number] Social History Tobacco Use Types Packs/Day Years [...]
--- OUTSIDE RECORDS SUMMARY | 2018-08-30 13:34 | XMS REPORT | Encounter Summary ---
Author Author [facility] Organization [facility] Address Unknown Phone Unavailable Care Team Providers Care Geodetic Surveyor Technologist Name Role Phone Jeny Garcia MD PCP Reason for Visit * Reason Comments Hydronephrosis * Consult, Test & Treat (Routine) Status Reason Specialty Diagnoses / Referred By Referred To Procedures Contact Contact No Auth Needed Urology Diagnoses Perry Moseley MD New - [address] Obstructive [address] Neuropathy/Urina [place], [place]iversion [address] Recs from Phone: [place] [phone] P rocedures NEW PATIENT Encounter Details Date Type Department Care Team Description 07/01/2018 Office Visit [facility] Perry Moseley MD Hydronephrosis, Physicians - Urology [address] unspecified Ortho and Medical [address] hydronephrosis type [address] [place] [address] [phone] [place] [address] Social History Tobacco Use Types [...] F referred for bilateral hydronephrosis. Presented to [facility] with Cr 9.3 complaining of fatigue, [...] deterioration. in this encounter Plan of Treatment Not on fileas of this encounter Visit Diagnoses Diagnosis Hydronephrosis, unspecified hydronephrosis type
--- OUTSIDE RECORDS SUMMARY | 2018-08-30 13:34 | XMS REPORT | Encounter Summary ---
Author Author [facility] Organization [facility] Address Unknown Phone Unavailable Care Team Providers Care Retail Coverage Merchandiser Name Role Phone Jeny Gracia MD PCP Encounter Details Date Type Department Care Team Description 07/01/2018 Procedure Pass Medicine Telemetry [address] [place] [address] Social History Tobacco Use Types [...]
--- OUTSIDE RECORDS SUMMARY | 2018-08-30 13:35 | XMS REPORT | Continuity of Care Document ---
Author Author [facility] Organization [facility] Address Unknown Phone Unavailable Allergies Active Description Code Type Severity Reaction Onset Reported/Identified Relationship to Patient Clinical Status Yes codeine [id number] Drug Allergy Unknown N/V 08/14/2018 Medications There is no data. Problems Date [...] 09/20/2015 TYLER CLANCY MD Ot 793.80 09/22/2015 NAIF MOROCHO, JAVIER Canchola Ot Z12.31 10/13/2015 JAVIER DISLA MD Ot [...] UNSPEC ABNORMAL MAMMOGRAM 10/04/2016 JAVIER DISLA MD Ot Z12.31 ENCNTR [...] FOR MALIGNANT NE 10/19/2016 JAVIER DISLA MD Ot Z12.31 ENCNTR SCREEN MAMMOGRAM FOR MALIGNANT NE 10/15/2017 VASHTI DAVILA APRN Ot Z12.31 ENCNTR SCREEN [...] UNSPEC ABNORMAL MAMMOGRAM 01/25/2018 JAVIER DISLA MD Ot Z12.31 ENCNTR [...] 02/01/2018 PAYTON GILLESPIE MD Ot Z79.899 OTHER SKILLED NURSING (CURRENT) DRUG THERAPY 02/04/2018 PAYTON GILLESPIE MD Ot E07.9 DISORDER OF THYROID, UNSPECIFIED 02/04/2018 PAYTON GILLESPIE MD Ot F17.210 NICOTINE DEPENDENCE, CIGARETTES, UNCOMPL 02/04/2018 VERNA MOROCHO, PAYTON Johnson Ot F32.9 MAJOR DEPRESSIVE DISORDER, SINGLE EPISOD 02/04/2018 VERNA MOROCHO, PAYTON L Ot H26.9 UNSPECIFIED CATARACT 02/04/2018 VERNA MOROCHO, PAYTON L Ot R51 HEADACHE 02/04/2018 VERNA MOROCHO, PAYTON L Ot Z79.899 OTHER SKILLED NURSING (CURRENT) DRUG THERAPY 02/04/2018 VERNA MOROCHO, PAYTON Johnson Ot E07.9 DISORDER OF THYROID, UNSPECIFIED 02/04/2018 VERNA MOROCHO, PAYTON L Ot F17.210 NICOTINE DEPENDENCE, CIGARETTES, UNCOMPL 02/04/2018 VERNA MOROCHO, PAYTON Johnson Ot F32.9 MAJOR DEPRESSIVE DISORDER, SINGLE EPISOD 02/04/2018 VERNA MOROCHO, PAYTON Johnson Ot H26.9 UNSPECIFIED CATARACT 02/04/2018 PAYTON GILLESPIE MD L Ot R51 HEADACHE 02/04/2018 VERNA MOROCHO, PAYTON L Ot Z79.899 OTHER SKILLED NURSING (CURRENT) DRUG THERAPY 05/31/2018 TYLER CLANCY MD [...] MAMMOGRAM FOR MALIGNANT NE 05/31/2018 VASHTI DAVILA TANK ERECTOR Ot Z12.31 ENCNTR SCREEN MAMMOGRAM FOR MALIGNANT NE 06/03/2018 VASHTI DAVILA TANK ERECTOR Ot K59.00 CONSTIPATION, UNSPECIFIED 07/11/2018 VASHTI DAVILA TANK ERECTOR Ot K59.00 CONSTIPATION, UNSPECIFIED 08/15/2018 TYLER CLANCY MD Ot 793.89 OTH (ABN) FINDINGS ON RADIOLOGICAL EXAMI 08/15/2018 TYLER CLANCY MD Ot V76.12 OTH SCREEN MAMMO-MALIGN NEOPLASM OF JAMES 08/15/2018 TYLER CLANCY MD Ot 793.89 OTH (ABN) FINDINGS ON RADIOLOGICAL EXAMI 08/15/2018 TYLER CLANCY MD Ot 793.80 UNSPEC ABNORMAL MAMMOGRAM 08/15/2018 JAVIER DISLA MD Ot Z12.31 ENCNTR SCREEN MAMMOGRAM FOR MALIGNANT NE 08/15/2018 JAVIER DISLA MD Ot Z12.31 ENCNTR SCREEN MAMMOGRAM FOR MALIGNANT NE 08/15/2018 VASHTI DAVILA TANK ERECTOR Ot Z12.31 ENCNTR SCREEN MAMMOGRAM FOR MALIGNANT NE 08/15/2018 VASHTI DAVILA TANK ERECTOR Ot K59.00 CONSTIPATION, UNSPECIFIED 08/15/2018 SHAMIR DRISCOLL ZINC MINER BLASTING Ot E86.0 DEHYDRATION 08/15/2018 SHAMIR DRISCOLL ZINC MINER BLASTING Ot R11.2 NAUSEA WITH VOMITING, UNSPECIFIED 08/15/2018 DEIDRE MOROCHO, HERMAN Rubio Ot E03.9 HYPOTHYROIDISM, UNSPECIFIED 08/15/2018 DEIDRE MOROCHO, HERMAN Rubio Ot K20.9 ESOPHAGITIS, UNSPECIFIED 08/15/2018 DEIDRE MOROCHO, HERMAN Rubio Ot K29.70 GASTRITIS, UNSPECIFIED, WITHOUT BLEEDING 08/15/2018 HERMAN JIANG MD Ot K29.80 DUODENITIS WITHOUT BLEEDING 08/15/2018 DEIDRE MOROCHO, HERMAN Rubio Ot Z79.899 OTHER CLERICAL ORDER FILLER (CURRENT) DRUG THERAPY 08/15/2018 HERAMN JIANG MD Ot E03.9 HYPOTHYROIDISM, UNSPECIFIED 08/15/2018 HERMAN JIANG MD Ot K20.9 ESOPHAGITIS, UNSPECIFIED 08/15/2018 DEIDRE MOROCHO, HERMAN Rubio Ot K29.70 GASTRITIS, UNSPECIFIED, WITHOUT BLEEDING 08/15/2018 HERMAN JIANG MD Ot K29.80 DUODENITIS WITHOUT BLEEDING 08/15/2018 HERMAN JIANG MD Ot Z79.899 OTHER CLERICAL ORDER FILLER (CURRENT) DRUG THERAPY 08/16/2018 OMERO MOROCHO, EVANGELINA T Ot A41.9 SEPSIS, UNSPECIFIED ORGANISM 08/16/2018 EVANGELINA JAMIL MD Ot E03.9 HYPOTHYROIDISM, UNSPECIFIED 08/16/2018 EVANGELINA JAMIL MD Ot E87.6 HYPOKALEMIA 08/16/2018 EVANGELINA JAMIL MD, Ot F32.9 MAJOR DEPRESSIVE DISORDER, SINGLE EPISOD 08/16/2018 EVANGELINA JAMIL MD, Ot N13.6 PYONEPHROSIS 08/16/2018 EVANGELINA JAMIL MD, Ot N19 UNSPECIFIED KIDNEY FAILURE 08/16/2018 EVANGELINA JAMIL MD, Ot R65.21 SEVERE SEPSIS WITH SEPTIC SHOCK 08/16/2018 EVANGELINA JAMIL MD, Ot Z79.01 SKILLED NURSING (CURRENT) USE OF ANTICOAGULANT 08/16/2018 EVANGELINA JAMIL MD, Ot Z88.5 ALLERGY STATUS TO NARCOTIC AGENT STATUS 08/16/2018 EVANGELINA JAMIL MD, Ot Z93.6 OTHER ARTIFICIAL OPENINGS OF URINARY TRA 08/19/2018 DEIDRE OMROCHO, HERMAN Rubio Ot E03.9 HYPOTHYROIDISM, UNSPECIFIED 08/19/2018 HERMAN JIANG MD, Ot K20.9 ESOPHAGITIS, UNSPECIFIED 08/19/2018 HERMAN JIANG MD, Ot K29.70 GASTRITIS, UNSPECIFIED, WITHOUT BLEEDING 08/19/2018 HERMAN JIANG MD, Ot K29.80 DUODENITIS WITHOUT BLEEDING 08/19/2018 HERMAN JIANG MD, Ot Z79.899 OTHER CLERICAL ORDER FILLER (CURRENT) DRUG THERAPY Procedures There is no data. Results Test Result Range Complete blood count (CBC) with automated white blood cell (WBC) differential - 08/14/18 17:36 Blood leukocytes automated count (number/volume) 18.9 10*3/uL 4.3-11.0 Blood erythrocytes automated count (number/volume) 3.62 10*6/uL 4.35-5.85 Venous blood hemoglobin measurement (mass/volume) 10.3 g/dL 11.5-16.0 Blood hematocrit (volume fraction) 31 % 35-52 Automated erythrocyte mean corpuscular volume 86 [foz_us] 80-99 Automated erythrocyte mean corpuscular hemoglobin (mass per erythrocyte) 28 pg 25-34 Automated erythrocyte mean corpuscular hemoglobin concentration measurement ( mass/volume) 33 g/dL 32-36 Automated erythrocyte distribution width ratio 15.3 % 10.0-14.5 Automated blood platelet count (count/volume) 361 10*3/uL 130-400 Automated blood platelet mean volume measurement 9.3 [foz_us] 7.4-10.4 Automated blood neutrophils/100 leukocytes 90 % 42-75 Automated blood lymphocytes/100 leukocytes 5 % 12-44 Blood monocytes/100 leukocytes 5 % 0-12 Automated blood eosinophils/100 leukocytes 0 % 0-10 Automated blood basophils/100 leukocytes 0 % 0-10 Blood neutrophils automated count (number/volume) 17.1 10*3 1.8-7.8 Blood lymphocytes automated count (number/volume) 0.9 10*3 1.0-4.0 Blood monocytes automated count (number/volume) 0.9 10*3 0.0-1.0 Automated eosinophil count 0.0 10*3/uL 0.0-0.3 Automated blood basophil count (count/volume) 0.0 10*3/uL 0.0-0.1 PT panel in platelet poor plasma by coagulation assay - 08/14/18 17:36 Prothrombin time (PT) in platelet poor plasma by coagulation assay 20.4 s 12.2-14.7 INR in platelet poor plasma or blood by coagulation assay 1.7 0.8-1.4 Activated partial thromboplastin time (aPTT) in platelet poor plasma bycoagulation assay - 08/14/18 17:36 Activated partial thromboplastin time (aPTT) in platelet poor plasma bycoagulation assay 40 s 24-35 Comprehensive metabolic panel - 08/14/18 17:36 Serum or plasma sodium measurement (moles/volume) 132 mmol/L 135-145 Serum or plasma potassium measurement (moles/volume) 2.5 mmol/L 3.6-5.0 Serum or plasma chloride measurement (moles/volume) 90 mmol/L 98-107 Carbon dioxide 26 mmol/L 21-32 Serum or plasma anion gap determination (moles/volume) 16 mmol/L 5-14 Serum or plasma urea nitrogen measurement (mass/volume) 41 mg/dL 7-18 Serum or plasma creatinine measurement (mass/volume) 2.35 mg/dL 0.60-1.30 Serum or plasma urea nitrogen/creatinine mass ratio 17 NRG Serum or plasma creatinine measurement with calculation of estimated glomerular filtration rate 21 NRG Serum or plasma glucose measurement (mass/volume) 176 mg/dL 70-105 Serum or plasma calcium measurement (mass/volume) 8.9 mg/dL 8.5-10.1 Serum or plasma total bilirubin measurement (mass/volume) 0.4 mg/dL 0.1-1.0 Serum or plasma alkaline phosphatase measurement (enzymatic activity/volume) 78 U/L 40-136 Serum or plasma aspartate aminotransferase measurement (enzymatic activity/ volume) 12 U/L 5-34 Serum or plasma alanine aminotransferase measurement (enzymatic activity/volume ) 9 U/L 0-55 Serum or plasma protein measurement (mass/volume) 7.0 g/dL 6.4-8.2 Serum or plasma albumin measurement (mass/volume) 3.5 g/dL 3.2-4.5 CALCIUM CORRECTED 9.3 mg/dL 8.5-10.1 Blood lactic acid measurement (moles/volume) - 08/14/18 17:36 Blood lactic acid measurement (moles/volume) 2.30 mmol/L 0.50-2.00 Blood manual differential performed detection - 08/14/18 17:36 Blood monocytes/100 leukocytes 4 % NRG Manual blood segmented neutrophils/100 leukocytes 68 % NRG Blood band neutrophils/100 leukocytes 25 % NRG Manual blood lymphocytes/100 leukocytes 3 % NRG Manual eosinophils/100 leukocytes in nose 0 % NRG Manual blood basophils/100 leukocytes 0 % NRG Blood erythrocyte morphology finding identification NORMAL NR Bacterial blood culture - 08/14/18 17:36 FREE TEXT EXTERNAL RML SENT SENSITIVITY REPORT 08/20 14:05 NRG QUANTITY OF GROWTH Isolated NR Bacterial blood culture [id number] [facility] RML SENSITIVITY MAIN LAB - 08/14/18 17:36 Gentamicin susceptibility test by minimum inhibitory concentration < = NRG Trimethoprim/sulfamethoxazole susceptibility test by minimum inhibitoryconcentration < NRG Levofloxacin susceptibility test by minimum inhibitory concentration <= NRG Ampicillin susceptibility test by minimum inhibitory concentration > NRG Cefazolin susceptibility test by minimum inhibitory concentration > NRG Ceftriaxone susceptibility test by minimum inhibitory concentration <= NRG Piperacillin/tazobactam susceptibility test by minimum inhibitory concentration = NRG Ciprofloxacin susceptibility test by minimum inhibitory concentration <= NRG Meropenem susceptibility test by minimum inhibitory concentration < = NRG Amoxicillin and clavulanate potassium susc ALDO > NRG Bacterial blood culture - 08/14/18 18:25 Bacterial blood culture NG NR Complete urinalysis with reflex to culture - 08/14/18 19:05 Urine color determination YELLOW NRG Urine clarity determination VERY CLOUDY NRG Urine pH measurement by test strip 5 5-9 Specific gravity of urine by test strip 1.015 1.016- 1.022 Urine protein assay by test strip, semi-quantitative 4+ NEGATIVE Urine glucose detection by automated test strip NEGATIVE NEGATIVE Erythrocytes detection in urine sediment by light microscopy 3+ NEGATIVE Urine ketones detection by automated test strip NEGATIVE NEGATIVE Urine nitrite detection by test strip NEGATIVE NEGATIVE Urine total bilirubin detection by test strip NEGATIVE NEGATIVE Urine urobilinogen measurement by automated test strip (mass/volume) NORMAL NORMAL Urine leukocyte esterase detection by dipstick 2+ NEGATIVE Automated urine sediment erythrocyte count by microscopy (number/high power field) [HPF] NRG Automated urine sediment leukocyte count by microscopy (number/high power field ) [HPF] NRG Bacteria detection in urine sediment by light microscopy LARGE NRG Crystals detection in urine sediment by light microscopy PRESENT NRG Casts detection in urine sediment by light microscopy NONE NRG Mucus detection in urine sediment by light microscopy NEGATIVE NRG Complete urinalysis with reflex to culture YES NRG Amorphous sediment detection in urine sediment by light microscopy LARGE SILVIA URATES NRG Bacterial urine culture - 08/14/18 19:05 Bacterial urine culture SEE COMMEN NRG COLONY COUNT . NR RML Sensitivity Panel - 08/14/18 19:05 Gentamicin susceptibility test by minimum inhibitory concentration 4 NRG Trimethoprim/sulfamethoxazole susceptibility test by minimum inhibitoryconcentration = NRG Levofloxacin susceptibility test by minimum inhibitory concentration > NRG Ampicillin susceptibility test by minimum inhibitory concentration > NRG Cefazolin susceptibility test by minimum inhibitory concentration > NRG Ceftriaxone susceptibility test by minimum inhibitory concentration 16 NRG Ciprofloxacin susceptibility test by minimum inhibitory concentration > NRG Meropenem susceptibility test by minimum inhibitory concentration < = NRG Nitrofurantoin susceptibility test by minimum inhibitory concentration > NRG Amoxicillin and clavulanate potassium susc ALDO > NRG RML Sensitivity Panel - 08/14/18 19:05 Vancomycin susceptibility test by minimum inhibitory concentration 1 NRG Levofloxacin susceptibility test by minimum inhibitory concentration <= NRG Ampicillin susceptibility test by minimum inhibitory concentration 1 NRG Nitrofurantoin susceptibility test by minimum inhibitory concentration <= NRG Linezolid susceptibility test by minimum inhibitory concentration < = NRG Daptomycin susc ALDO 2 NRG Serum or plasma lactate measurement (moles/volume) - 08/14/18 19:25 Serum or plasma lactate measurement (moles/volume) 1.11 mmol/L 0.50-2.00 Bacterial urine culture - 08/14/18 23:40 Bacterial urine culture [id number] NRG COLONY COUNT >100,000/ML NRG FTX;REPORTABLE SENSITIVITY REPORT SENT BY [facility] FREE TEXT ENTRY 2 08/17 10:05 [facility] - 08/14/18 23:40 Gentamicin susceptibility test by minimum inhibitory concentration < = NRG Trimethoprim/sulfamethoxazole susceptibility test by minimum inhibitoryconcentration <= NRG Levofloxacin susceptibility test by minimum inhibitory concentration <= NRG Ampicillin susceptibility test by minimum inhibitory concentration > NRG Cefazolin susceptibility test by minimum inhibitory concentration > NRG Ceftriaxone susceptibility test by minimum inhibitory concentration <= NRG Ciprofloxacin susceptibility test by minimum inhibitory concentration <= NRG Meropenem susceptibility test by minimum inhibitory concentration < = NRG Nitrofurantoin susceptibility test by minimum inhibitory concentration 64 NRG Amoxicillin and clavulanate potassium susc ALDO > NRG [facility] Sensitivity Panel - 08/14/18 23:40 Vancomycin susceptibility test by minimum inhibitory concentration 1 NRG Levofloxacin susceptibility test by minimum inhibitory concentration <= NRG Ampicillin susceptibility test by minimum inhibitory concentration 1 NRG Nitrofurantoin susceptibility test by minimum inhibitory concentration <= NRG Linezolid susceptibility test by minimum inhibitory concentration 2 NRG Daptomycin susc ALDO 4 NRG Whole blood basic metabolic panel - 08/15/18 01:05 Serum or plasma sodium measurement (moles/volume) 134 mmol/L 135-145 Serum or plasma potassium measurement (moles/volume) 3.1 mmol/L 3.6-5.0 Serum or plasma chloride measurement (moles/volume) 98 mmol/L 98-107 Carbon dioxide 21 mmol/L 21-32 Serum or plasma anion gap determination (moles/volume) 15 mmol/L 5-14 Serum or plasma urea nitrogen measurement (mass/volume) 39 mg/dL 7-18 Serum or plasma creatinine measurement (mass/volume) 1.98 mg/dL 0.60-1.30 Serum or plasma urea nitrogen/creatinine mass ratio 20 NRG Serum or plasma creatinine measurement with calculation of estimated glomerular filtration rate 25 NRG Serum or plasma glucose measurement (mass/volume) 128 mg/dL 70-105 Serum or plasma calcium measurement (mass/volume) 7.6 mg/dL 8.5-10.1 Encounters ACCT No. Visit Date/Time Discharge Status Pt. Type Provider Facility Loc./Unit Complaint [id number] 08/14/2018 17:08:00 08/15/2018 02:00:00 DIS Outpatient EVANGELINA JAMIL MD [facility] ER UTI,SEPTIC SHOCK [id number] 08/13/2018 11:34:00 08/13/2018 14:10:00 DIS Outpatient HERMAN JIANG MD [facility] ENDO NAUSEA/VOMITING/ GERD [id number] 08/12/2018 10:00:00 08/12/2018 23:59:59 CLS Outpatient SHAMIR DRISCOLL ZINC MINER BLASTING [facility] N,V,DEHYDRATION [id number] 05/31/2018 07:42:00 05/31/2018 23:59:59 CLS Outpatient VASHTI DAVILA APRN [facility] RAD CONSTIPATION [id number] 02/01/2018 11:22:00 02/01/2018 13:10:00 DIS [facility] [id number] 01/28/2018 10:30:00 01/28/2018 11:06:00 DIS Outpatient PAYTON GILLESPIE MD [facility] PREOP CATARACT [id number] 10/01/2017 07:01:00 10/01/2017 23:59:59 CLS Outpatient VASHTI DAVILA TANK ERECTOR [facility] RAD SCREENING [id number] 10/04/2016 08:41:00 10/04/2016 23:59:59 CLS Outpatient JAVIER DISLA MD [facility] RAD SCREENING [id number] 09/20/2015 11:06:00 09/20/2015 23:59:59 CLS Outpatient JAVIER DISLA MD [facility] RAD SCREENING [id number] 09/29/2014 07:41:00 09/29/2014 23:59:59 CLS Outpatient TYLER CLANCY MD [facility] RAD ABN MAMMO [id number] 09/29/2013 07:30:00 09/29/2013 23:59:59 CLS Outpatient TYLER CLANCY MD [facility] RAD ABN MAMMO [id number] 09/11/2013 06:54:00 09/11/2013 23:59:59 CLS Outpatient TYLER CLANCY MD [facility] RAD SCREENING [id number] 09/29/2014 07:45:00 Document Registration [id number] 09/29/2014 07:45:00 Document Registration [id number] 09/29/2014 07:45:00 Document Registration [id number] 09/29/2014 07:45:00 Document Registration [id number] 09/10/2012 08:25:00 Document Registration [id number] 03/07/2012 05:47:00 Document Registration [id number] 03/04/2012 14:23:00 Document Registration [id number] 04/15/2010 09:45:00 Document Registration [id number] 05/26/2009 14:23:00 Document Registration [id number] 04/28/2009 14:02:00 Document Registration [id number] 09/10/2017 13:35:31 09/10/2017 23:59:59 CLS Outpatient
--- OUTSIDE RECORDS SUMMARY | 2018-08-30 13:35 | XMS REPORT | Encounter Summary ---
Author Author [facility] Organization [facility] Address Unknown Phone Unavailable Care Team Providers Care Banking Officer Name Role Phone PCP Unavailable Encounter Details Date Type Department Care Team Description 06/24/2018 Hospital [facility] Encounter Hospital Radiology Main [facility] [address], [place] [phone] Social History Tobacco Use Types Packs/Day Years [...]
--- OUTSIDE RECORDS SUMMARY | 2018-08-30 13:35 | XMS REPORT | Encounter Summary ---
Author Author [facility] Organization [facility] Address Unknown Phone Unavailable Care Team Providers Care Fha Underwriter Name Role Phone PCP Unavailable Encounter Details Date Type Department Care Team Description 06/19/2018 Hospital [facility] Encounter Hospital Radiology Main [facility] [address] [place], [place] [phone] Social History Tobacco Use Types Packs/Day Years [...] Name Priority Date/Time Associated Diagnosis Comments [facility] 06/19/2018 Diagnosis unknown Results for this 12:15 AM CDT procedure are in the results section. in this encounter Results * IR [facility] EXTERNAL IMAGING (06/19/2018 12:15 AM) Narrative Performed At This order has been auto finalized and does not contain a result. in this encounter Visit Diagnoses Diagnosis Diagnosis unknown Other unknown and unspecified cause of morbidity or mortality
--- OUTSIDE RECORDS SUMMARY | 2018-08-30 13:35 | XMS REPORT | Encounter Summary ---
Author Author [facility] Organization [facility] Address Unknown Phone Unavailable Care Team Providers Care Sustainable Landscape Architect Name Role Phone PCP Unavailable Encounter Details Date Type Department Care Team Description 06/15/2018 Hospital [facility] Encounter Hospital Radiology Main [facility] [address] [place], [place] [phone] Social History Tobacco Use Types Packs/Day Years [...]
--- OUTSIDE RECORDS SUMMARY | 2018-08-30 13:35 | XMS REPORT | Encounter Summary ---
Author Author [facility] Organization [facility] Address Unknown Phone Unavailable Care Team Providers Care Stone Polisher Machine Name Role Phone PCP Unavailable Encounter Details Date Type Department Care Team Description 06/19/2018 Hospital [facility] Encounter Hospital Radiology Main [facility] [address] [address] [place], [place] [phone] Social History Tobacco Use Types Packs/Day Years [...]
--- OUTSIDE RECORDS SUMMARY | 2018-08-30 13:35 | XMS REPORT | Encounter Summary ---
Author Author [facility] Organization [facility] Address Unknown Phone Unavailable Care Team Providers Care Service Employee Name Role Phone PCP Unavailable Encounter Details Date Type Department Care Team Description 06/05/2018 Hospital [facility] Encounter Hospital Radiology Main [facility] [address] [place], [place] [phone] Social History Tobacco Use Types Packs/Day Years [...] Name Priority Date/Time Associated Diagnosis Comments IR [facility] EXTERNAL IMAGING Routine 06/05/2018 Diagnosis unknown Results for this 12:00 AM CDT procedure are in the results section. in this encounter Results * IR MISC EXTERNAL IMAGING (06/05/2018) Narrative Performed At This order has been auto finalized and does not contain a result. in this encounter Visit Diagnoses Diagnosis Diagnosis unknown Other unknown and unspecified cause of morbidity or mortality
--- OUTSIDE RECORDS SUMMARY | 2018-08-30 13:35 | XMS REPORT | Encounter Summary ---
Author Author [facility] Organization [facility] Address Unknown Phone Unavailable Care Team Providers Care Missile Pad Mechanic Name Role Phone PCP Unavailable Encounter Details Date Type Department Care Team Description 06/03/2018 Hospital [facility] Encounter Hospital Radiology Main [facility] 2nd fl [address] [place], [place] [phone] Social History Tobacco Use Types Packs/Day Years [...]
--- OUTSIDE RECORDS SUMMARY | 2018-08-30 13:35 | XMS REPORT | Encounter Summary ---
Author Author [facility] Organization [facility] Address Unknown Phone Unavailable Care Team Providers Care Benzene Operator Name Role Phone PCP Unavailable Encounter Details Date Type Department Care Team Description 06/22/2018 Hospital [facility] Encounter Hospital Radiology Main Hospital 2[address] fl [address] [place], [place] [phone] Social History Tobacco Use Types Packs/Day Years [...]
--- OUTSIDE RECORDS SUMMARY | 2018-08-30 13:35 | XMS REPORT | Encounter Summary ---
Author Author [facility] Organization [facility] Address Unknown Phone Unavailable Care Team Providers Care Cardiovascular Or Nurse Name Role Phone PCP Unavailable Encounter Details Date Type Department Care Team Description 06/10/2018 Hospital [facility] Encounter Hospital Radiology Main [facility] 2[address] fl [address] [place], [place] [phone] Social History Tobacco Use Types Packs/Day Years [...]
--- OUTSIDE RECORDS SUMMARY | 2018-08-30 13:35 | XMS REPORT | Encounter Summary ---
Author Author [facility] Organization [facility] Address Unknown Phone Unavailable Care Team Providers Care Luggage Repairer Name Role Phone PCP Unavailable Encounter Details Date Type Department Care Team Description 06/04/2018 Hospital [facility] Encounter Hospital Radiology Main [facility] [address] fl [address] [place], [place] [phone] Social History Tobacco Use Types Packs/Day Years [...] procedure are in the results section. [place] [facility] Routine 06/04/2018 Diagnosis unknown Results for this 12:00 AM CDT procedure are in the results section. in this encounter Results * ECG-SCAN (07/01/2018 2:40 PM) Narrative Performed At Ordered by an unspecified provider. * [facility] (06/04/2018) Narrative Performed At This order has been auto finalized and does not contain a result. in this encounter Visit Diagnoses Diagnosis Diagnosis unknown Other unknown and unspecified cause of morbidity or mortality
--- OUTSIDE RECORDS SUMMARY | 2018-08-30 13:35 | XMS REPORT | Encounter Summary ---
Author Author [facility] Organization [facility] Address Unknown Phone Unavailable Care Team Providers Care Marketing Ambassador Name Role Phone PCP Unavailable Encounter Details Date Type Department Care Team Description 06/17/2018 Hospital [facility] Encounter Hospital Radiology [facility] 2nd fl [address], [place] [id number] Social History Tobacco Use Types Packs/Day Years [...] Name Priority Date/Time Associated Diagnosis Comments [facility] Routine 06/17/2018 Diagnosis unknown Results for this 12:00 AM CDT procedure are in the results section. in this encounter Results * [facility] (06/17/2018) Narrative Performed At This order has been auto finalized and does not contain a result. in this encounter Visit Diagnoses Diagnosis Diagnosis unknown Other unknown and unspecified cause of morbidity or mortality
[2018-08-30] MEDS ORDERED: NS IV 1000 ML 1,000 ML IV ONE ×2 (14:22→16:05)
[2018-08-30 14:29] LABS: BASOPHILS % (AUTO) 0 % (0-10); EOSINOPHILS % (AUTO) 0 % (0-10); HEMATOCRIT 29 % (35-52); HEMOGLOBIN 9.8 G/DL (11.5-16.0); LYMPHOCYTES # (AUTO) 1.1 X 10^3 (1.0-4.0); LYMPHOCYTES % (AUTO) 11 % (12-44); MEAN CORPUSCULAR HEMOGLOBIN 29 PG (25-34); MEAN CORPUSCULAR HGB CONC 34 G/DL (32-36); MEAN CORPUSCULAR VOLUME 85 FL (80-99); MEAN PLATELET VOLUME 8.4 FL (7.4-10.4); MONOCYTES # (AUTO) 0.5 X 10^3 (0.0-1.0); MONOCYTES % (AUTO) 5 % (0-12); NEUTROPHILS # (AUTO) 8.3 X 10^3 (1.8-7.8); NEUTROPHILS % (AUTO) 83 % (42-75); PLATELET COUNT 329 10^3/uL (130-400); RED BLOOD COUNT 3.38 10^6/uL (4.35-5.85); RED CELL DISTRIBUTION WIDTH 16.9 % (10.0-14.5)
[2018-08-30 14:45] LABS: PROTHROMBIN TIME PATIENT 13.4 SEC (12.2-14.7)
[2018-08-30 14:47] LABS: ALBUMIN 3.7 GM/DL (3.2-4.5); BILIRUBIN,TOTAL 2.4 MG/DL (0.1-1.0); CALCIUM 8.3 MG/DL (8.5-10.1); CREATININE SERUM 2.08 MG/DL (0.60-1.30); TOTAL PROTEIN 6.6 GM/DL (6.4-8.2)
[2018-08-30 14:58] LABS: POTASSIUM 2.5 MMOL/L (3.6-5.0)
[2018-08-30] MEDS ORDERED: POTASSIUM CL 10MEQ/50ML IVPB 50 ML IV ONE ×2 (15:00→16:15)
--- NOTE | 2018-08-30 15:21 | Diagnostic Imaging Report ---
INDICATION: Rectal bleeding EXAMINATION: Supine abdomen. FINDINGS: As noted on the prior exam of 08/15/2018, there are nephrostomy tubes overlying each renal contour. Surgical clips are also again seen overlying the right mid abdomen. The small calcifications low in the pelvis, seen previously, are also again visualized and do not appear to have changed significantly. There are also a few small calcific densities in the left upper quadrant. These were probably present on the prior exam but are more conspicuous on this study. There is some gas in both the large and small bowel in a nonspecific fashion. There is no evidence for a bowel obstruction. There does appear to be a fair amount of fecal material throughout the transverse colon. There is no mass or organomegaly identified. The osseous structures are intact. IMPRESSION: 1. The bowel gas pattern is nonspecific. There is no acute abnormality noted. 2. When compared with the prior study, there does not appear to have been any significant change. Dictated by: Dictated on workstation # [id number]
--- NOTE | 2018-08-30 15:28 | Diagnostic Imaging Report ---
INDICATION: Hypotension. EXAMINATION: PA chest at 2:59 p.m. FINDINGS: The heart size is within normal limits and stable when compared to 08/14/2018. The lungs are clear. There is no evidence for failure, pneumonia or a pleural effusion. The mediastinum is not widened. The osseous structures are intact. The central venous catheter seen on the prior study has been removed. IMPRESSION: 1. There is no evidence for an acute cardiopulmonary abnormality. 2. The central venous catheter, noted previously, has been removed without apparent complication. Dictated by: Dictated on workstation # [id number]
[2018-08-30 15:57] LABS: CLARITY,URINE CLEAR; COLOR,URINE YELLOW; GLUCOSE, URINE (UA) NEGATIVE (NEGATIVE); KETONES,URINE 1+ (NEGATIVE); LEUKOCYTE ESTERASE ,URINE 3+ (NEGATIVE); NITRITE,URINE NEGATIVE (NEGATIVE); PH,URINE 6 (5-9); PROTEIN,URINE 4+ (NEGATIVE); UROBILINOGEN,URINE 4 MG/DL (NORMAL)
[2018-08-30 16:06] LABS: BACTERIA,URINE FEW /HPF
[2018-08-30 16:07] LABS: CLARITY,URINE CLOUDY; COLOR,URINE YELLOW; GLUCOSE, URINE (UA) NEGATIVE (NEGATIVE); KETONES,URINE 1+ (NEGATIVE); LEUKOCYTE ESTERASE ,URINE 3+ (NEGATIVE); NITRITE,URINE NEGATIVE (NEGATIVE); PH,URINE 5 (5-9); PROTEIN,URINE 4+ (NEGATIVE); UROBILINOGEN,URINE 4 MG/DL (NORMAL)
[2018-08-30 16:09] LABS: BACTERIA,URINE FEW /HPF
[2018-08-30] MEDS ORDERED: MEROPENEM 500 MG in NS (IVPB) 100 ML IV ONE (16:15)
--- NOTE | 2018-08-30 16:21 | ED General ---
General Chief Complaint: Rect Problems Stated Complaint: RECTAL BLEEDING Nursing Triage Note: Pt reports she was seen by [facility] today and had low BP and rectal bleeding on exam Nursing Sepsis Screen: No Definite Risk Source of Information: Patient, Family, Old Records Exam Limitations: No Limitations History of Present Illness Date Seen by Provider: Aug 30, 2018 Time Seen by Provider: 14:22 Initial Comments This 67-year-old woman presents to the emergency room at the direction of [facility] because of hypotension. She reports feeling weak, nauseated, and constipated. 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 She was seen in this ER on August 14 where she was diagnosed with septic shock, urinary tract infection, and nephrostomy tube failure. She was dismissed from [facility] after treatment and finished her antibiotics today. Patient also had a pneumothorax from central line placement and required a chest tube. She has been taking Zofran for nausea and has not yet vomited. Patient presented again to last Sunday for cystoscopy with Dr. Moseley. She has not yet heard the results of that study and biopsies. Patient also has had an EGD in recent weeks with Dr. Ferguson. She reports there is gastritis and duodenitis. Patient additionally reports 2 episodes of small hematochezia in the past week. It was also reported that she had some aspiration during her cystoscopy. Allergies and Home Medications Allergies Coded Allergies: codeine (Unverified Allergy, Unknown, N/V, 08/14/18) Home Medications Apixaban 5 Mg Tablet, 5 MG PO BID, (Reported) Docusate Sodium 100 Mg Tablet, 100 MG PO DAILY, (Reported) Levothyroxine Sodium 50 Mcg Tablet, 50 MCG PO DAILY, (Reported) Pantoprazole Sodium 40 Mg Tablet.dr, 40 MG PO DAILY, (Reported) [water pill] , 1 TAB PO DAILY, (Reported) Patient Home Medication List Home Medication List Reviewed: Yes Review of Systems Review of Systems Constitutional: see HPI; No fever EENTM: no symptoms reported Respiratory: no symptoms reported Cardiovascular: see HPI Gastrointestinal: see HPI Genitourinary: see HPI : No Musculoskeletal: no symptoms reported Skin: no symptoms reported Psychiatric/Neurological: No Symptoms Reported Hematologic/Lymphatic: See HPI Immunological/Allergic: no symptoms reported Past Dvpwzga-Tgcpnv-Obemyo Hx Past Med/Social Hx: Reviewed and Corrections made Patient Social History Alcohol Use: Denies Use Recreational Drug Use: No Smoking Status: Current Everyday Smoker Type Used: Cigarettes Recent Foreign Travel: No Contact w/Someone Who Travel: No Recent Infectious Disease Expo: No Recent Hopitalizations: Yes (IN JUN 2018) Immunizations Up To Date Date of Pneumonia Vaccine: Sep 06, 2010 Past Medical History Surgeries: Yes (BILAT NEPHROSTOMY TUBES) Abdominal (EGD), Gallbladder Respiratory: No Cardiac: No Neurological: No Reproductive Disorders: No Genitourinary: Yes (BILAT UROSTOMYS) Gastrointestinal: Yes (HX OF ULCER 5 YRS AGO, gastritis, duodenitis) Musculoskeletal: No Endocrine: Yes Hypothyroidsim Cancer: No Psychosocial: Yes Depression Blood Disorders: No Physical Exam-Suspected Sepsis Physical Exam Vital Signs Vital Signs - First Documented 08/30/18 14:03 Temp 98.3 Pulse 101 Resp 18 B/P (MAP) 69/51 (57) Pulse Ox 99 O2 Delivery Room Air Capillary Refill : Less Than 3 Seconds Blood Pressure Mean: 57 Height, Weight, BMI Height: 5'5.00" Weight: 165lbs. 0.0oz. 74.343233sv; 26.6 BMI Method:Estimated General Appearance: No Apparent Distress, WD/WN, Other (Weak and ill appearing) HEENT: PERRL/EOMI, Normal ENT Inspection, Pharynx Normal Neck: Normal Inspection, Supple Respiratory: Lungs Clear, Normal Breath Sounds, No Accessory Muscle Use, No Respiratory Distress Cardiovascular: Regular Rate, Rhythm, No Edema, Normal Peripheral Pulses Gastrointestinal: Normal Bowel Sounds, Soft, Tenderness (Vague mild tenderness) Extremity: Normal Inspection, Pedal Edema (Marketed pitting lower extremity edema bilaterally) Neurologic/Psychiatric: Alert, Oriented x3, No Motor/Sensory Deficits, tread builder II- XII Norm as Tested, Other (Depressed affect) Skin: normal color, warm/dry Focused Exam Lactate Level 08/30/18 14:18: Lactic Acid Level 1.36 Lactic Acid Level Progress/Results/Core Measures Suspected Sepsis Recent Fever Within 48 Hours: No Infection Criteria Present: None New/Unexplained Altered Menta: No Sepsis Screen: No Definite Risk SIRS Temperature:98.3 Pulse: 101 Respiratory Rate: 18 Laboratory Tests 08/30/18 14:18: White Blood Count 10.0 08/30/18 18:40: White Blood Count 10.5 Blood Pressure 69 /51 Mean: 57 08/30/18 14:18: Lactic Acid Level 1.36 Laboratory Tests 08/30/18 14:18: Creatinine 2.08H, INR Comment 1.0, Platelet Count 329, Total Bilirubin 2.4H 08/30/18 18:40: Creatinine 1.82H, Platelet Count 281 Results/Orders Lab Results Laboratory Tests Test 08/30/18 14:18 08/30/18 15:42 08/30/18 18:40 Range/Units White Blood Count 10.0 10.5 4.3-11.0 10^3/uL Red Blood Count 3.38 L 2.99 L 4.35-5.85 10^6/uL Hemoglobin 9.8 L 8.9 L 11.5-16.0 G/DL Hematocrit 29 L 26 L 35-52 % Mean Corpuscular Volume 85 86 80-99 FL Mean Corpuscular Hemoglobin 29 30 25-34 PG Mean Corpuscular Hemoglobin Concent 34 35 32-36 G/DL Red Cell Distribution Width 16.9 H 16.8 H 10.0-14.5 % Platelet Count 329 281 130-400 10^3/uL Mean Platelet Volume 8.4 8.2 7.4-10.4 FL Neutrophils (%) (Auto) 83 H 42-75 % Lymphocytes (%) (Auto) 11 L 12-44 % Monocytes (%) (Auto) 5 0-12 % Eosinophils (%) (Auto) 0 0-10 % Basophils (%) (Auto) 0 0-10 % Neutrophils # (Auto) 8.3 H 1.8-7.8 X 10^3 Lymphocytes # (Auto) 1.1 1.0-4.0 X 10^3 Monocytes # (Auto) 0.5 0.0-1.0 X 10^3 Eosinophils # (Auto) 0.0 0.0-0.3 10^3/uL Basophils # (Auto) 0.0 0.0-0.1 10^3/uL Prothrombin Time 13.4 12.2-14.7 SEC INR Comment 1.0 0.8-1.4 Activated Partial Thromboplast Time 30 24-35 SEC Sodium Level 134 L 134 L 135-145 MMOL/L Potassium Level 2.5 *L 2.6 L 3.6-5.0 MMOL/L Chloride Level 91 L 95 L 98-107 MMOL/L Carbon Dioxide Level 22 21 21-32 MMOL/L Anion Gap 21 H 18 H 5-14 MMOL/L Blood Urea Nitrogen 21 H 20 H 7-18 MG/DL Creatinine 2.08 H 1.82 H 0.60-1.30 MG/DL Estimat Glomerular Filtration Rate 24 28 BUN/Creatinine Ratio 10 11 Glucose Level 88 84 70-105 MG/DL Lactic Acid Level 1.36 0.50-2.00 MMOL/L Calcium Level 8.3 L 7.6 L 8.5-10.1 MG/DL Corrected Calcium 8.5 8.5-10.1 MG/DL Total Bilirubin 2.4 H 0.1-1.0 MG/DL Aspartate Amino Transf (AST/SGOT) 110 H 5-34 U/L Alanine Aminotransferase (ALT/SGPT) 65 H 0-55 U/L Alkaline Phosphatase 795 H 40-136 U/L C-Reactive Protein High Sensitivity 7.70 H 0.00-0.50 MG/DL Total Protein 6.6 6.4-8.2 GM/DL Albumin 3.7 3.2-4.5 GM/DL Lipase 69 8-78 U/L Urine Color YELLOW Urine Clarity CLEAR Urine pH 6 5-9 Urine Specific [place] 1.020 1.016-1.022 Urine Protein 4+ NEGATIVE Urine Glucose (UA) NEGATIVE NEGATIVE Urine Ketones 1+ H NEGATIVE Urine Nitrite NEGATIVE NEGATIVE Urine Bilirubin 2+ H NEGATIVE Urine Urobilinogen 4 H NORMAL MG/DL Urine Leukocyte Esterase 3+ H NEGATIVE Urine RBC (Auto) 3+ H NEGATIVE Urine RBC 5-10 H /HPF Urine WBC 5-10 H /HPF Urine Crystals NONE /LPF Urine Bacteria FEW H /HPF Urine Casts NONE /LPF Urine Hyaline Casts 2-5 H /LPF Urine Mucus NEGATIVE /LPF Urine Culture Indicated YES Phosphorus Level 3.4 2.3-4.7 MG/DL Magnesium Level 0.9 *L 1.8-2.4 MG/DL Amylase Level 161 H 25-125 U/L Micro Results Microbiology 08/30/18 Urine Culture - Preliminary, Resulted My Orders Orders - EVANGELINA JAMIL MD Abdomen/Kub 1view (08/30/18 14:22) Cbc With Automated Diff (08/30/18 14:22) Comprehensive Metabolic Panel (08/30/18 14:22) Blood Culture (08/30/18 14:22) Sputum Culture (08/30/18 14:22) Urinalysis (08/30/18 14:22) Urine Culture (08/30/18 14:22) Protime With Inr (08/30/18 14:22) Partial Thromboplastin Time (08/30/18 14:22) Chest 1 View, Ap/Pa Only (08/30/18 14:22) Saline Lock/Iv-Start (08/30/18 14:22) Saline Lock/Iv-Start (08/30/18 14:22) Vital Signs Adult Sepsis Patie Q15M (08/30/18 14:22) O2 (08/30/18 14:22) Remove Rings In Anticipation O (08/30/18 14:22) Lactic Acid Analyzer (08/30/18 14:22) Ns Iv 1000 Ml (Sodium Chloride 0.9%) (08/30/18 14:22) Potassium Cl 10meq/50ml Ivpb (Kcl 10 Meq (08/30/18 15:00) Ua Culture If Indicated (08/30/18 15:18) Hs C Reactive Protein (08/30/18 16:00) Meropenem (Merrem 500 Mg) (08/30/18 16:15) Ns Iv 1000 Ml (Sodium Chloride 0.9%) (08/30/18 16:05) Potassium Cl 10meq/50ml Ivpb (Kcl 10 Meq (08/30/18 16:15) Urine Culture (08/30/18 15:42) Lipase (08/30/18 16:21) Us Hepatic (Liver)[id number] (08/30/18 16:21) Medications Given in ED Current Medications Medications Dose Ordered Sig/Bello Route Start Time Stop Time Status Last Admin Dose Admin Meropenem 500 mg/ Sodium Chloride 100 ml @ 200 mls/hr ONCE ONCE IV 08/30/18 16:15 08/30/18 16:44 DC 08/30/18 16:39 200 MLS/HR Potassium Chloride 50 ml @ 50 mls/hr ONCE ONCE IV 08/30/18 15:00 08/30/18 15:59 DC 08/30/18 15:26 50 MLS/HR Potassium Chloride 50 ml @ 50 mls/hr ONCE ONCE IV 08/30/18 16:15 08/30/18 17:14 DC 08/30/18 16:21 50 MLS/HR Sodium Chloride 1,000 ml @ 0 mls/hr Q0M ONCE IV 08/30/18 14:22 08/30/18 14:25 DC 08/30/18 14:49 1,000 MLS/HR Sodium Chloride 1,000 ml @ 0 mls/hr Q0M ONCE IV 08/30/18 16:05 08/30/18 16:06 DC 08/30/18 16:39 1,000 MLS/HR Vital Signs/I&O 08/30/18 08/30/18 08/30/18 08/30/18 14:03 18:00 18:00 18:13 Temp 98.3 97.3 Pulse 101 99 Resp 18 20 B/P (MAP) 69/51 (57) 107/69 (82) Pulse Ox 99 92 100 O2 Delivery Room Air Room Air Room Air 08/30/18 20:12 Temp 98.8 Pulse 86 Resp 12 B/P (MAP) 99/65 (76) Pulse Ox 99 O2 Delivery Room Air Capillary Refill : Less Than 3 Seconds Blood Pressure Mean: 57 Progress Note : Progress Note Patient was seen and examined. Septic workup was pursued. However, I do not feel this patient is septic as she has no fever or leukocytosis. Her hypotension resolved very quickly with less than 1 L of IV fluids. I believe she was hypovolemic due to poor oral intake. This is supported by her hypokalemia finding as well. Urinary tract infection was suspected. Antibiotics were initiated based on review of prior cultures. Meropenem and ampicillin were selected. Case was discussed with Dr. Felipe, Dr. Valdivia, and Dr. Ferguson. She was treated with 2 L of IV normal saline and a total of 20 mEq of IV potassium while in the emergency room. The first dose of meropenem was also given. She had no active rectal bleeding in the ER. Patient had a curious elevation in bilirubin and alkaline phosphatase. Ultrasound of the liver was obtained. There was mild dilation of the CBD. Diagnostic Imaging Diagonstic Imaging: Xray Plain Films/CT/US/NM/MRI: chest Comments NAME: STEFANO RANDHAWA MED REC#: [id number] PT STATUS: REG ER : 1950 PHYSICIAN: EVANGELINA JAMIL MD ADMIT DATE: 08/30/18/ER Draft Date of Exam:08/30/18 CHEST 1 VIEW, AP/PA ONLY INDICATION: Hypotension. EXAMINATION: PA chest at 2:59 p.m. FINDINGS: The heart size is within normal limits and stable when compared to 08/14/2018. The lungs are clear. There is no evidence for failure, pneumonia or a pleural effusion. The mediastinum is not widened. The osseous structures are intact. The central venous catheter seen on the prior study has been removed. IMPRESSION: 1. There is no evidence for an acute cardiopulmonary abnormality. 2. The central venous catheter, noted previously, has been removed without apparent complication. Dictated on workstation # [id number] Dict: 08/30/18 1454 Trans: 08/30/18 1528 PJE [id number] Interpreted by: JENSEN STEELE MD Diagonstic Imaging: Xray Plain Films/CT/US/NM/MRI: abdomen Comments NAME: STEFANO RANDHAWA [facility] REC#: [id number] PT STATUS: REG ER : 1950 PHYSICIAN: EVANGELINA JAMIL MD ADMIT DATE: 08/30/18/ER Draft Date of Exam:08/30/18 ABDOMEN/KUB 1VIEW INDICATION: Rectal bleeding EXAMINATION: Supine abdomen. FINDINGS: As noted on the prior exam of 08/15/2018, there are nephrostomy tubes overlying each renal contour. Surgical clips are also again seen overlying the right mid abdomen. The small calcifications low in the pelvis, seen previously, are also again visualized and do not appear to have changed significantly. There are also a few small calcific densities in the left upper quadrant. These were probably present on the prior exam but are more conspicuous on this study. There is some gas in both the large and small bowel in a nonspecific fashion. There is no evidence for a bowel obstruction. There does appear to be a fair amount of fecal material throughout the transverse colon. There is no mass or organomegaly identified. The osseous structures are intact. IMPRESSION: 1. The bowel gas pattern is nonspecific. There is no acute abnormality noted. 2. When compared with the prior study. There does not appear to have been any significant change. Dictated on workstation # [id number] Dict: 08/30/18 1451 Trans: 08/30/18 1520 [facility] [id number] Interpreted by: JENSEN STEELE MD Diagonstic Imaging: Ultrasound Plain Films/CT/US/NM/MRI: abdomen Comments NAME: STEFANO RANDHAWA [facility] REC#: [id number] PT STATUS: ADM IN : 1950 PHYSICIAN: EVANGELINA JAMIL MD ADMIT DATE: 08/30/18/ICU Signed Date of Exam: 08/30/18 US HEPATIC (LIVER)[id number] PROCEDURE: US Hepatic (Liver). TECHNIQUE: Multiple real-time grayscale images were obtained over the right upper quadrant in various projections. INDICATION: Rectal bleeding. FINDINGS: Liver is normal in size without focal lesions. Gallbladder is surgically absent. There is biliary ductal dilatation with the common bile duct measuring up to 1.1 cm. Pancreas is not well seen due to bowel gas. Right kidney is normal in appearance. There is a small amount of perihepatic ascites. IMPRESSION: 1. Prominence of the common bile duct up to 1.1 cm. This may be related to patient's age and previous cholecystectomy although choledocholithiasis cannot be entirely excluded. Recommend clinical correlation. 2. Small amount of perihepatic ascites. Dictated by: Dictated on workstation # [id number] Dict: 08/30/18 1701 Trans: 08/30/18 1714 Interpreted by: DARA MEDINA MD Electronically signed by: DARA MEDINA MD 08/30/18 1714 Departure Communication (Admissions) Time/Spoke to Admitting Phy: 16:00 Dr. Felipe Time/Spoke to Consulting Phy: 16:[address] Valdivia Impression Primary Impression: Hypokalemia Additional Impressions: Hypovolemia Urinary tract infection Qualified Codes: T83.512D - Infection and inflammatory reaction due to nephrostomy catheter, subsequent encounter; N39.0 - Urinary tract infection, site not specified Abnormal liver function Nausea Disposition: ADMITTED INPATIENT Condition: Improved Admissions Decision to Admit Reason: Admit from ER (General) Decision to Admit/Date: Aug 30, 2018 Time/Decision to Admit Time: 15:00 Departure-Patient Inst. Referrals: JAVIER DISLA MD (PCP/Family) Primary Care Physician EVANGELINA JAMIL MD Aug 30, 2018 16:21
--- OUTSIDE RECORDS SUMMARY | 2018-08-30 16:54 | XMS REPORT | Clinical Summary ---
Author Author [facility] Organization [facility] Address Unknown Phone Unavailable Care Team Providers Care Clinical Rehab Specialist Name Role Phone Jeny Garcia MD PCP Source Comments Some departments are not documenting in the electronic medical record. If you do not see the information that you expected, contact Release of Information in the Health Information Management department at [phone] for further assistance in locating additional records.[facility] Allergies Active Allergy Reactions Severity Noted [...] Noted Date Aspiration into airway 08/23/2018 Sepsis ([facility]) 08/15/2018 Bilateral ureteral obstruction 08/02/2018 Major depressive disorder with single episode, in remission ([facility]) 07/07/2018 Gastroesophageal reflux disease without esophagitis 07/07/2018 Hypothyroidism due to acquired atrophy of thyroid 07/07/2018 Vitamin D deficiency 07/07/2018 MEE (acute kidney injury) ([facility]) 07/07/2018 Pyuria 07/07/2018 Volume overload 07/07/2018 Acute deep vein thrombosis (DVT) of distal end of right lower extremity ([facility]) Debility 07/07/2018 Obesity (BMI 30-39.9) [...] Inocente Krause MD Canceled Visit (Patient-Hospitalized) 08/15/2018 [facility] Intensive Care Mary Ann Christie MD Septic shock (HCC ) - Encounter Michael Rose MD 08/19/2018 Ramón Mcclain MD 08/15/2018 Hospital Radiology Encounter 08/14/2018 Hospital Radiology Encounter 08/14/2018 Hospital Radiology Encounter 07/30/2018 Office Visit Oncology Inocente Krause MD Bilateral ureteral obstruction 07/30/2018 Prep for Case Oncology Inocente Krause MD Bilateral ureteral obstruction (Primary Dx) 07/01/2018 [facility] Darrick Lazo MD Obstructive uropathy - [...] Name Priority Date/Time Associated Diagnosis Comments ECG-SCAN 08/26/2018 Results for this 10:19 AM CDT procedure are in the results section. CBC Routine 08/24/2018 Results for this 3:56 [...] section. from Last 3 Months Results * ECG-SCAN (08/26/2018 10:19 AM) Narrative Performed At Ordered by an unspecified provider. * CBC (08/24/2018 3:56 AM) White Blood [...] [place] [facility] Performing Organization Address City/State/Zipcode Phone Number [facility] [address] [place] [address] * BASIC METABOLIC PANEL (08/24/2018 3:56 AM) [...] Clinical Pharmacist for questions. Performing Organization Address City/State/Zipcode Phone Number [facility] [address] [place] [address] * SURGICAL PATHOLOGY (08/23/2018 10:44 AM) PATHOLOGY REPORT [facility] [email or web address] Department of Pathology and Laboratory Medicine [address] [place] [address] Surgical Pathology Office:[phone] :[phone] SURGICAL PATHOLOGY REPORT NAME: ARACELIS ESPINAL SURG PATH #: [id number] MR #: [id number] SPECIMEN CLASS: SR BILLING #: [id number] ALT ID #:LOCATION: [facility] DATE OF PROCEDURE: 08/23/2018 AGE:67 SEX: F DATE RECEIVED: 08/23/2018 : 1950TIME RECEIVED:10:44 PHYSICIAN: INOCENTE KRAUSE MD DATE OF REPORT: 08/27/2018 COPY TO:DATE OF PRINTIN08/27/2018 Procedures/Addenda Immunohistochemical Date Ordered: 08/27/2018 Status:Signed Out Date Complete: 08/27/2018 By: Preet Holley MD Date Reported: 08/27/2018 Interpretation The diagnosis remains the same. 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 Preet Holley MD ############################## ############################## ############ Final Diagnosis: A. Bladder, "bladder mass", biopsy: Plasmacytoid urinary bladder carcinoma. SEE COMMENT Comment: Immunohistochemical stains supporting the diagnosis: Positive for pancytokeratin and cytokeratin CAM 5.2. Focally positive for CD138. [place] E-cadherin on tumor cells. These findings support the above diagnosis. Pursuant to the Radial Drill Operator Program at the [facility] Pathology Department, selected slides from this [...] x 0.4 cm Cassettes A1-A2- Entire specimen.(wlm) [facility]/08/23/2018 If immunohistochemical stains and/or in situ hybridization are cited in this report, the performance characteristics were determined by the Department of Pathology and Laboratory Medicine of the [facility] ([employer]) in compliance with [...] of Pathology and Laboratory Medicine of the [facility].It has not been cleared or approved by the FDA.The FDA has determined that such clearance or approval is not necessary. Performing Organization Address City/State/Zipcode Phone Number [facility] * FLUORO MOBILE IN OR (08/23/2018 10:15 AM) Narrative Performed At This order has been auto finalized and does not contain a result. [facility] Performing Organization Address City/State/Zipcode Phone Number [facility] * CHEST SINGLE VIEW (08/23/2018 10:14 [...] 12.0 - 15.0 GM/DL MAIN LAB Hematocrit 28.5 (L) 36 - [...] 4 - 12 % MAIN LAB Eosinophils 1 0 - 5 % [facility] Basophils 0 0 - 2 % [facility] Absolute Neutrophil Count 5.90 1.8 - 7.0 K/UL MAIN LAB Absolute Lymph Count 1.60 1.0 - 4.8 K/UL [facility]IN LAB Absolute Monocyte Count 0.40 0 - 0.80 K/UL [facility] Absolute Eosinophil Count 0.10 0 - 0.45 K/UL [facility] Absolute Basophil Count 0.00 0 - 0.20 K/UL MAIN LAB Specimen Blood Performing Organization Address [facility] Phone Number [facility] [address] [place] [address] * PHOSPHORUS (08/19/2018 3:10 AM) Only the most recent of 6 results within the time period is included. Phosphorus 2.2Comment: NOTE NEW REFERENCE 2.0 - 4.5 MG/DL MAIN LAB RANGES Specimen Blood Performing Organization Address [facility] Facility[facility] Phone Number [facility] [address] [place] [address] * MAGNESIUM (08/19/2018 3:10 AM) Only the most recent of 9 results within the time period is included. Magnesium 1.7 1.6 - 2.6 mg/dL MAIN LAB Specimen Blood Performing Organization Address [facility] Phone Number MAIN LAB [address] [place] [address] * ECG-SCAN (08/18/2018 8:05 PM) Narrative Performed [...] City/State/Zipcode Phone Number [facility] [address] [place] [address] * CHEST X-RAY INSPIRATION/EXPIRATION (08/16/2018 6:27 PM) [...] on 08/17/2018 7:38 AM. Performing Organization Address City/State/Zipcode Phone Number [...] in small left apical pneumothorax. Finalized by Fuda Canas M.D. on 08/16/2018 5:56 PM. Dictated by Fuad Canas M.D. on 08/16/2018 5:54 PM. Performing Organization Address City/State/Zipcode Phone Number [facility] * IR ASPIRATION/DRAIN (08/16/2018 4:14 PM) Only the most recent of 3 results within the time period is included. Impressions Performed At Successful placement of a left-sided 8-Kosovan pigtail drain for pneumothorax. [facility] [...] mg IV Versed; 50 mcg IV fentanyl. GAS FURNACE INSTALLER: Ash Capellan D.O. TECHNIQUE AND FINDINGS: A [...] needle. The needle was removed, and an 8-Kosovan pigtail drainage catheter was advanced over the [...] mg IV Versed; 50 mcg IV fentanyl. GAS FURNACE INSTALLER: Ash Capellan D.O. TECHNIQUE AND FINDINGS: A [...] The needle was removed, and an 8- Kosovan pigtail drainage catheter was advanced over the wire. A large volume of free air was hand aspirated. The catheter was secured to the skin with suture. Hemostasis was achieved with manual compression, and a sterile, occlusive dressing was applied. The patient tolerated the procedure well and left the department in stable condition. IMPRESSION Successful placement of a left-sided 8-Kosovan pigtail drain for pneumothorax. I, Kev Philip [...] on 08/16/2018 4:46 PM. Performing Organization Address [facility] Facility[facility]d Phone Number [facility] * C DIFFICILE BY PCR (08/15/2018 2:30 PM) Battery Name C DIFFICILE PCR MAIN LAB Specimen Description FECES MAIN LAB Special Requests NONE [facility] C. Difficile Toxin B PCR NEGATIVE-wait 7 days to repeat [facility] test Report Status FINAL MAIN LAB 08/15/2018 Specimen Feces Performing Organization Address [facility] Phone Number [facility] [address] [place] [address] * NOTES (08/15/2018 12:25 PM) Only the most recent of 2 results within the time period is included. Specimen Notes left neph urine REFERENCE LAB Performing Organization Address [facility] Phone Number REFER[facility] LAB REFERENCE LAB See results for address. * URINALYSIS, MICROSCOPIC (08/15/2018 12:25 PM) Only the most recent of 3 results within the time period is included. WBCs,UA PACKED 0 - 2 /HPF MAIN LAB RBCs,UA PACKED 0 - 3 /HPF [facility] MucousUA 1+ MAIN LAB Bacteria,UA MANY (A) NEG-NEG [facility] Specimen Urine - Urine,Nephrostomy Performing Organization Address [facility] Phone Number [facility] [address] [place] [address] * CULTURE-URINE W/SENSITIVITY (08/15/2018 12:25 PM) Only the most recent of 4 results within the time period is included. Battery Name URINE CULTURE MAIN LAB Specimen Description URINE,NEPHROSTOMY MAIN LAB Special Requests NONE [facility] Culture >100,000 organisms/ml MAIN LAB ENTEROCOCCUS FAECALIS <10,000 organisms/ml CONTAMINANT (A) Report Status FINAL [facility] 08/17/2018 Organism ID >100,000 organisms/ml MAIN [...] enterococcus faecalis INTERPRETATION INTERPRETATION Performing Organization Address City/[facility] Facility[facility] Phone Number [facility] [address] [place] [address] * TROPONIN-I (08/15/2018 10:20 AM) Only the most recent of 3 results within the time period is included. Troponin-I 0.03 0.0 - 0.05 NG/ML [facility] Specimen Blood Performing Organization Address [facility] Phone Number [facility] [address] [place] [address] * URINALYSIS DIPSTICK (08/15/2018 7:50 AM) Color,UA YELLOW MAIN LAB Turbidity,UA 2+ (A) CLEAR-CLEAR MAIN LAB Specific Post-Urine 1.013 1.003 - 1.035 MAIN LAB pH,UA 5.0 5.0 - 8.0 MAIN LAB Protein,UA 2+ (A) NEG-NEG MAIN LAB Glucose,UA NEG NEG-NEG MAIN LAB Ketones,UA NEG NEG-NEG MAIN LAB Bilirubin,UA NEG NEG-NEG [facility] Blood,UA 2+ (A) NEG-NEG [facility] Urobilinogen,UA NORMAL NORM-NORMAL [facility] Nitrite,UA NEG NEG-NEG [facility] Leukocytes,UA 3+ (A) NEG-NEG [facility] Urine Ascorbic Acid, UA NEG NEG-NEG [facility] Specimen Urine - Urine Performing Organization Address [facility] Phone Number [facility] [address] [place] [address] * UREA NITROGEN-URINE RANDOM (08/15/2018 7:50 AM) Urea Nitrogen 461 MG/DL [facility] Specimen Urine - Urine Performing Organization Address [facility] Phone Number [facility] [address] [place] [address] * CREATININE-URINE RANDOM (08/15/2018 7:50 AM) Creatinine, Random 83 MG/DL [facility] Specimen Urine - Urine Performing Organization Address [facility] Phone Number [facility] [address] [place] [address] * ABDOMEN AP ONLY (08/15/2018 6:55 AM) [...] on 08/15/2018 7:33 AM. Performing Organization Address [facility] Phone Number RAD RESULTS * CULTURE-BLOOD W/SENSITIVITY (08/15/2018 4:59 AM) Only the most recent of 2 results within the time period is included. Battery Name BLOOD CULTURE MAIN LAB Specimen Description BLOOD MAIN LAB RIGHT FA Special Requests NONE MAIN LAB Culture NO GROWTH 5 DAYS MAIN LAB Report Status FINAL MAIN LAB 08/21/2018 Specimen Blood Performing Organization Address [facility] Phone Number [facility] [address] [place] [address] * TSH WITH FREE T4 REFLEX (08/15/2018 4:55 AM) Only the most recent of 2 results within the time period is included. TSH 1.200 0.35 - 5.00 MCU/ML MAIN LAB Specimen Blood Performing Organization Address [facility] Facilitycode Phone Number MAIN LAB [address] [place] [address] * LACTIC ACID (BG - RAPID LACTATE) (08/15/2018 4:55 AM) Lactic Acid,BG 1.0 0.5 - 2.0 MMOL/L MAIN LAB Specimen Blood Performing Organization Address [facility] Facility[facility] Phone Number [facility] [address] [place] [address] * PTT (APTT) (08/15/2018 4:55 AM) APTT 28.6Comment: NOTE NEW 20.0 - 36.0 SEC [facility] REFERENCE RANGES Specimen Blood Performing Organization Address City/[facility]/Zipcode Phone Number [facility] [address] [place] [address] * PROTIME INR (PT) (08/15/2018 4:55 AM) INR 2.0 (H) 0.8 - 1.2 [facility] Specimen Blood Performing Organization Address [facility] Facility[facility] Phone Number MAIN LAB [address] [place] [address] * BNP (B-TYPE NATRIURETIC PEPTI) (08/15/2018 4:55 AM) Only the most recent of 2 results within the time period is included. B Type Natriuretic 129.0 (H) 0 - 100 PG/ML [facility] Peptide Specimen Blood Performing Organization Address [facility] Facility[facility] Phone Number MAIN LAB [address] [place] [address] * GENERAL RAD ABDOMEN EXTERNAL IMAGING (08/15/2018) [...] participating. Overlapping portions were non diamond and Ishmael was immediately available. Ishmael interpret the critical and diamond portion of [...] needle. Access was maintained with a 6 Kosovan sheath. A 5 Kosovan pigtail catheter was advanced over a 0.035 [...] needle. Access was maintained with a 6 Kosovan sheath. A 5 Kosovan pigtail catheter was advanced over a 0.035 [...] on 07/04/2018 9:13 AM. Performing Organization Address [facility] FacilityTier 1 Performance Phone Number RAD RESULTS * PROTEIN/CR RATIO,UR RAN (07/03/2018 2:00 PM) Protein, Random 10 MG/DL [facility] Creatinine, Random 32 MG/DL [facility] Protein/CR ratio 0.3 [facility] Specimen Urine - Urine Performing Organization Address [facility] Phone Number MAIN LAB [address] [place] [address] * IRON + BINDING CAPACITY + %SAT+ FERRITIN (07/03/2018 6:43 AM) Iron 38 (L) 50 - 160 MCG/DL [facility] Iron Binding-TIBC 285 270 - 380 MCG/DL [facility] % Saturation 13 (L) 28 - 42 % [facility] Ferritin 590 (H) 10 - 200 NG/ML [facility] Specimen Blood Performing Organization Address [facility] Facility[facility] Performance Phone Number [facility] [address] [place] [address] * 2-D + DOPPLER ECHOCARDIOGRAM (07/02/2018 9:09 [...] OTHER OUTSIDE LAB S' Cardiology Ultrasound Siemens [id number] OTHER OUTSIDE LAB Machine Left Ventricle Mass [...] systolic PA pressure=18 mmHg Performing Organization Address City/State/[facility] Phone Number OTHER OUTSIDE LAB * US DOPPLER VENOUS W TIFF MODI [...] on 07/01/2018 4:18 PM. Performing Organization Address City/[facility] Facilityco[facility] Phone Number RAD RESULTS * ECG-SCAN (07/01/2018 2:40 PM) Narrative Performed At Ordered by an unspecified provider. * BNP POC ER (07/01/2018 2:31 PM) BNP POC 123.0 (H) 0 - 100 PG/ML [facility] Performing Organization Address City/[facility] Phone Number [facility] [address] [place] [address] * POC TROPONIN (07/01/2018 2:31 PM) Cwhithau-Y-ZHC 0.00 0.00 - 0.05 NG/ML [facility] Performing Organization Address City/[facility]/[employer] Phone Number [facility] [address] [place] [address] * UA REFLEX CULTURE LABEL (07/01/2018 2:30 PM) UA Reflex Culture LAB LABEL [facility] Specimen Urine Performing Organization Address City/[facility]/[employer] Phone Number [facility] [address] [place] [address] * URINALYSIS MICROSCOPIC REFLEX TO CULTURE (07/01/2018 [...] MAIN LAB Specimen Urine Performing Organization Address City/[facility] Phone Number [facility] [address] [place] [address] * URINALYSIS DIPSTICK REFLEX TO CULTURE (07/01/2018 2:30 PM) Color,UA YELLOW [facility] Turbidity,UA CLEAR CLEAR-CLEAR [facility] Specific Post-Urine 1.010 1.003 - 1.035 [facility] [...] MAIN LAB Specimen Urine Performing Organization Address City/[facility] Facility[facility] Phone Number [facility] [address] [place] [address] * MRI PELVIS EXTERNAL IMAGING (06/25/2018) Narrative [...]
--- OUTSIDE RECORDS SUMMARY | 2018-08-30 16:54 | XMS REPORT | Encounter Summary ---
Author Author [facility] Organization [facility] Address Unknown Phone Unavailable Care Team Providers Care Rn Medical Inpatient Services Name Role Phone Jeny Garcia MD PCP Encounter Details Date Type Department Care Team Description 08/23/2018 Pharmacy Visit [facility] [address] [place] [address] Social History Tobacco Use Types Packs/Day Years [...]
--- OUTSIDE RECORDS SUMMARY | 2018-08-30 16:54 | XMS REPORT | Encounter Summary ---
Author Author [facility] Organization [facility] Address Unknown Phone Unavailable Care Team Providers Care Club Former Name Role Phone Jeny Gracia MD PCP Reason for Visit * Auth/Cert Status Reason Specialty Diagnoses / Referred By Referred To Procedures Contact Contact Diagnoses Bilateral ureteral obstruction Bilateral ureteral obstruction [N13.5] P rocedures SC CYSTO BLADDER W/URETERAL CATHETERIZATION SC CYSTO BLADDER W/URETERAL CATHETERIZATION CYSTOURETHROSCOP Y WITH URETERAL CATHETERIZATION WITH/ WITHOUT IRRIGATION/ INSTILLATION/ URETEROPYELOGRAP HY Encounter Details Date Type Department Care Team Description 08/23/2018 [place] [address] Inocente Krause MD Aspiration into airway - Encounter [address] 08/24/2018 [place] [address] [address] [place] [address] [phone] Social History Tobacco Use Types Packs/Day Years [...] call and ask for the urology resident inventory control assistant. In case of an emergency, please report [...] Levaquin course Prophylaxis Review: - DVT: SCD's, ANIMAL HUSBANDRY WORKER Eliquis - GI: No - Catheter: Yes - Abx: Yes Frank Cartwright MD Urology PGY-1 Please page urology inventory control assistant with questions SUBJECTIVE: No acute events overnight. [...] 08/23/18700 - 08/24/1869908/24/18700 - 08/25/18 07 Shift [id number] 5437-4786 24 Hour Total 3708-3027 0803-7570 24 Hour Total I N T A [...] (10) 925 (12.3) 1675 (22.3) NET 1190 -328 832 Weight (kg) 75 75 75 75 75 [...] Krause MD - 08/23/2018 11:40 AM CDT [address] [address] PATIENT NAME: ARACELIS ESPINAL MR#/PT#: [id number] Page 2 OPERATIVE REPORT DATE OF OPERATION: 08/23/2018 SURGEON: Inocente Krause MD PRACTICE DIRECTOR(S): Fany Andrea MD. PREOPERATIVE DIAGNOSIS: 1. Bilateral [...] then set up to follow up at [facility]. She presented to clinic with significant [...] and draped in usual sterile fashion. A 21-Burundian cystoscope was inserted into the urethra in [...] we took a several swipes from the corporate representative sections around the bladder. Remainder of the bladder was very inflamed and friable. After resecting, we were able to identify the ureteral orifices. We performed antegrade nephrostogram bilaterally, which showed on the right side, mild to moderate hydronephrosis with string like tapering at the UPJ with minimal passage of contrast past the UPJ. On the left it showed [id number] hydronephrosis with again tapering at the UPJ [...] left the bladder full. We inserted a 20-Burundian Lopes catheter. The drapes were removed. The [...] overlapping cases Inocente Krause MD / MEDQ /[id number] cc: - Inocente Krause MD * Procedures (Immed Post or Bedside) - Fany Andrea MD - 08/23/2018 10:37 AM CDT Formatting of this note may be different from the original. Brief Operative Note Name: Aracelis Espinal is a 67 y.o. female : 1950 MRN# : [id number] DATE OF OPERATION: 08/23/2018 Date: 08/23/2018 Preoperative [...] PACU - stable Fany Andrea MD Pager [phone] Associated attestation - Inocente Krause MD - [...] Count 444 (H) 150 - 400 K/UL [facility] MPV 6.8 (L) 7 - 11 FL [facility] Performing Organization Address City/[facility]/Zipcode Phone Number [facility] [address] [place] [address] * BASIC METABOLIC PANEL (08/24/2018 3:56 AM) [...] for questions. eGFR 48 (L) >60 mL/min [facility] Comment: The eGFR is not validated for use in drug dosing adjustments.Continue to use estimated creatinine clearance per dosing reference text.Please contact the Clinical Pharmacist for questions. Performing Organization Address City/[facility] Phone Number [facility] [address] [place] [address] * SURGICAL PATHOLOGY (08/23/2018 10:44 AM) PATHOLOGY REPORT [facility] [email or web address] Department of Pathology and Laboratory Medicine [address] [place] [address] Surgical Pathology Office:[phone] :[phone] SURGICAL PATHOLOGY REPORT NAME: ARACELIS ESPINAL SURG PATH #: [id number] MR #: [id number] SPECIMEN CLASS: SR BILLING #: [id number] ALT ID #:LOCATION: [id number] DATE OF PROCEDURE: [...] very high proliferative activity, 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 Preet Holley MD ############################## ############################## ############ Final Diagnosis: A. Bladder, "bladder mass", biopsy: Plasmacytoid urinary bladder carcinoma. SEE COMMENT Comment: Immunohistochemical stains supporting the diagnosis: Positive for pancytokeratin and cytokeratin CAM 5.2. Focally positive for CD138. [place] E-cadherin on tumor cells. These findings support the above diagnosis. Pursuant to the Brickmason Helper Program at the [facility] Pathology Department, selected slides from this [...] of Pathology and Laboratory Medicine of the [facility] ([employer]) in compliance [...] of Pathology and Laboratory Medicine of the [facility].It has not been cleared or [...]
--- OUTSIDE RECORDS SUMMARY | 2018-08-30 16:54 | XMS REPORT | Encounter Summary ---
Author Author [facility] Organization [facility] Address Unknown Phone Unavailable Care Team Providers Care Masonry Contractor Administrator Name Role Phone Jeny Garcia MD PCP Encounter Details Date Type Department Care Team Description 08/23/2018 Procedure Pass Main Operating Room [address] [address] Social History Tobacco Use Types Packs/Day Years [...]
--- OUTSIDE RECORDS SUMMARY | 2018-08-30 16:55 | XMS REPORT | Encounter Summary ---
Author Author [facility] Organization [facility] Address Unknown Phone Unavailable Care Team Providers Care Application Support Analyst Name Role Phone Jeny Garcia MD PCP Reason for Visit * Auth/Cert Status Reason Specialty Diagnoses / Referred By Referred To Procedures Contact Contact Diagnoses Bilateral ureteral obstruction Bilateral ureteral obstruction [N13.5] P rocedures NV CYSTO BLADDER W/URETERAL CATHETERIZATION NV CYSTO BLADDER W/URETERAL CATHETERIZATION CYSTOURETHROSCOP Y WITH URETERAL CATHETERIZATION WITH/ WITHOUT IRRIGATION/ INSTILLATION/ URETEROPYELOGRAP HY Encounter Details Date Type Department Care Team Description 08/23/2018 Surgery Main Operating Room Inocente Krause MD CYSTOURETHROSCOPY WITH [facility] [address] URETERAL CATHETERIZATION, [address] [place] [address] [place] [address] ANTEGRADE PYELOGRAMS, TRANSURETHRAL RESECTION OF BLADDER TUMOR [...] call and ask for the urology resident mirror fabrication supervisor. In case of an emergency, please report [...] of this encounter Progress Notes * Shaila Peerz RN - 08/24/2018 11:32 AM CDT Patient [...] Levaquin course Prophylaxis Review: - DVT: SCD's, ULTRASONIC CLEANER Eliquis - GI: No - Catheter: Yes - Abx: Yes Frank Cartwright MD Urology PGY-1 Please page urology mirror fabrication supervisor with questions SUBJECTIVE: No acute events overnight. [...] 08/23/18700 - 08/24/1869908/24/18700 - 08/25/18 07 Shift [id number] 3624-0234 24 Hour Total [id number] 0944-4406 24 Hour Total I N T A [...] Krause MD - 08/23/2018 11:40 AM CDT [address] [address] PATIENT NAME: ARACELIS ESPINAL MR#/PT#: [id number] Page 2 OPERATIVE REPORT DATE OF OPERATION: 08/23/2018 SURGEON: Inocente Krause MD TILE EDGER(S): Fany Andrea MD. PREOPERATIVE DIAGNOSIS: 1. Bilateral [...] and draped in usual sterile fashion. A 21-Icelandic cystoscope was inserted into the urethra in [...] we took a several swipes from the food service sales representatives sections around the bladder. Remainder of the bladder was very inflamed and friable. After resecting, we were able to identify the ureteral orifices. We performed antegrade nephrostogram bilaterally, which showed on the right side, mild to moderate hydronephrosis with string like tapering at the UPJ with minimal passage of contrast past the UPJ. On the left it showed hguj-np-jynjhcku hydronephrosis with again tapering at the UPJ [...] left the bladder full. We inserted a 20-Icelandic Lopes catheter. The drapes were removed. The [...] overlapping cases Inocente Krause MD / MED /[id number] cc: - Inocente Krause MD * Procedures (Immed Post or Bedside) - Fany Andrea MD - 08/23/2018 10:37 AM CDT Formatting of this note may be different from the original. Brief Operative Note Name: Aracelis Espinal is a 67 y.o. female : 1950 MRN# : [id number] DATE OF OPERATION: 08/23/2018 Date: 08/23/2018 Preoperative [...] PACU - stable Fany Andrea MD Pager [phone] Associated attestation - Inocente Krause MD - [...] 11 [place] MAIN LAB Performing Organization Address [facility] [address] [place] [address] * BASIC METABOLIC PANEL (08/24/2018 3:56 AM) [...] Clinical Pharmacist for questions. Performing Organization Address City/[facility] Phone Number [facility] [address] [place] [address] * SURGICAL PATHOLOGY (08/23/2018 10:44 AM) PATHOLOGY REPORT [email or web address] Department of Pathology and Laboratory Medicine [address] [place] [address] Surgical Pathology Office:[phone] :[phone] SURGICAL PATHOLOGY REPORT NAME: ARACELIS ESPINAL SURG PATH #: [id number] MR #: [id number] SPECIMEN CLASS: SR BILLING #: [id number] ALT ID #:LOCATION: [id number] DATE OF PROCEDURE: [...] very high proliferative activity, consistent with the [facility] 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 Preet Holley MD ############################## ############################## ############ Final Diagnosis: A. Bladder, "bladder mass", biopsy: Plasmacytoid urinary bladder carcinoma. SEE COMMENT Comment: Immunohistochemical stains supporting the diagnosis: Positive for pancytokeratin and cytokeratin CAM 5.2. Focally positive for CD138. [place] E-cadherin on tumor cells. These findings support the above diagnosis. Pursuant to the Buttonhole Marker Program at the [facility] Pathology Department, selected slides from this case [...] of Pathology and Laboratory Medicine of the [facility] ([employer]) in compliance with [...] of Pathology and Laboratory Medicine of the [facility].It has not been cleared or approved [...]
--- OUTSIDE RECORDS SUMMARY | 2018-08-30 16:55 | XMS REPORT | Encounter Summary ---
Author Author [facility] Organization [facility] Address Unknown Phone Unavailable Care Team Providers Care Shear Scrapman Name Role Phone Jeny Garcia MD PCP Reason for Visit * Auth/Cert Status Reason Specialty Diagnoses / Referred By Referred To Procedures Contact Contact Diagnoses Bilateral ureteral obstruction Bilateral ureteral obstruction [N13.5] P rocedures AR CYSTO BLADDER W/URETERAL CATHETERIZATION AR CYSTO BLADDER W/URETERAL CATHETERIZATION CYSTOURETHROSCOP Y WITH URETERAL CATHETERIZATION WITH/ WITHOUT IRRIGATION/ INSTILLATION/ URETEROPYELOGRAP HY Encounter Details Date Type Department Care Team Description 08/23/2018 Anesthesia Main Operating Room Brigido Lu, SRNA Event [address] [place] [address] Anesthesia Record Procedure Name Responsible Anesthesia Start [...]
--- OUTSIDE RECORDS SUMMARY | 2018-08-30 16:57 | XMS REPORT | Encounter Summary ---
Author Author [facility] Organization [facility] Address Unknown Phone Unavailable Care Team Providers Care Family Sociologist Name Role Phone Jeny Garcia MD PCP Reason for Visit * Auth/Cert Status Reason Specialty Diagnoses / Referred By Referred To Procedures Contact Contact Diagnoses Sepsis (HCC) Septic shock (HCC) Sepsis Encounter Details Date Type Department Care Team Description 08/15/2018 Hospital 63 - Mary Ann Kidd MD Septic shock (HCC) - Encounter Main [address] 08/19/[address] [place] [address] [phone] [place] [address] [phone] Michael Smith MD [address] [place] [address] [phone] Maverick Mondragon MD [address] [place] [address] [phone] Social History Tobacco Use Types Packs/Day Years [...] the perinephric space. Therefore, a new 8.5 Macedonian nephrostomy tube was placed as described above. 2. Uneventful exchange of 8.5 Macedonian right sided percutaneous nephrostomy tube. IR (08/16): Successful placement of a left-sided 8-Macedonian pigtail drain for pneumothorax. Brief Hospital Course: 67 y/o Fw/PMH hypothyroidism, anxiety/depression, HLD, GERD, R popliteal DVT (07/01/18), b/l uteretral obstruction s/p b/l percutaneous nephrostomy tubes. Presented to [facility] 08/14 in septic shock &non-draining L nephrostomy [...] or concerns regarding your hospital stay. Call [phone] Discharging attending physician: MAVERICK SANCHEZ [[id number]] Cardiac [...] of the gram negative rods from [facility] Signed: Xiomara Pat APRN 08/19/2018 cc: Primary Care Physician: Jeny Garcia in this encounter Discharge Instructions * Discharge Instr - Case Management - Agnes Bryant RN - 08/15/2018 9:58 AM CDT [facility] nurse will call you tomorrow to arrange a time for the first visit. Please be aware nurse is coming from other patient's home and will provide a time frame for visit and not a specific time. [facility] [phone] in this encounter Medications at Time of [...] s/p b/l percutaneous nephrostomy tubes. Presented to [facility] 08/14 in septic shock &non-draining L nephrostomy [...] 80s&SBP 100s GI Hx GERD - Continue FURRIER APPRENTICE protonix Diarrhea - Cdiff - negative - [...] - I/O: -1.1L/24h; -1.3L/admit Plan - Resume FURRIER APPRENTICE lasix 40mg qd w/ mild LE edema [...] Hx Hypothyroidism - TSH 1.2 - Continue FURRIER APPRENTICE synthroid 50mcg daily ID Septic Shock (resolving) [...] be provoked 2/2 prolonged hospital stay in [place] - Continue FURRIER APPRENTICE eliquis 5mg BID. Spoke w/ urology 08/19 - okay to continue eliquis w/ upcoming procedure & it does not need to be stopped before. FEN - No current IVF - Replace lytes PRN - Cardiac diet PPX: Lines:PIV Drains/Tubes:B/l nephrostomy tubes DVT: Eliquis GI:Protonix PT/OT: Yes Code Status: Full Code Dispo: Stable to dc home Pt seen &discussed w/ Dr. Sarahi Pat [facility] Pulmonary Critical Care Pager [phone] M2 pager [phone] ATTESTATION I personally interviewed and examined the [...] no rashes, stage 1 pressure injury per asset manager to R heel & buttocks (not assessed) [...] requiring bilateral nephrostomy tubes, [facility] for MEE, septic shock, found to have [...] alarm on. 939: Received call from [facility] lab stating that one blood culture bottle [...] was d/c 07/08. She presented to [facility] on 08/14 in septic shock &non-draining L [...] OSH. Pigtail CT placed on WS and FURRIER APPRENTICE eliquis restarted. Pt downgraded to floor status. Today, pt continues to be stable overnight with no acute issues. Chest tube removed 08/18 with no evidence of pneumothorax on CXR this AM. Anesthesia called for pre- operative assessment for 08/[address] Moseley prior to discharging home. Assessment/Plan: NEURO: hx Anxiety, Depression - hold FURRIER APPRENTICE: clonazepam 1mg qd prn, norco 10/325 CV: Shock (resolved) - On presentation to OSH and reportedly received 4L IVF with NE started FURRIER APPRENTICE. No pressor needed once admitted to [facility]. [...] nicotine patch GI: hx GERD - Continue FURRIER APPRENTICE: protonix Diarrhea (resolved) - Cdiff 08/15: negative - Last BM 08/19 RENAL: MEE on CKD (improved) - Baseline Cr ~1.5 - D/t L PCN malfunction - Briefly required HD in May - Renal scan (OSH) 06/17: 70+ function of L kidney & 20 or less function of R kidney - FeUrea 08/15: 30; equivocal - CLOTHING EXAMINER 1.53 on admission --> 0. 81 this AM - IO: 0: Net -1.1L - UOP in 24 hours: 1.4L Plan - Continue FURRIER APPRENTICE lasix 40mg qd - Hold FURRIER APPRENTICE torsemide 20mg qd Electrolyte Derrangement - K [...] Hypothyroidism - TSH 1.2 Plan - Continue FURRIER APPRENTICE: Synthroid 50mcg qd ID: Septic Shock (resolved) [...] Lines: PIV Tubes:B/l nephrostomytubes Insulin:No Urinary Catheter:No DVT:FURRIER APPRENTICE eliquis GI ppx:Protonix PT/OT: Yes Code status:Full [...] s/p b/l percutaneous nephrostomy tubes. Presented to [facility] 08/14 in septic shock &non-draining L nephrostomy [...] 80s&SBP 100s GI Hx GERD - Continue FURRIER APPRENTICE protonix Diarrhea - Cdiff - negative - [...] - I/O: -850mL/24h; -278ml/admit Plan - Resume FURRIER APPRENTICE lasix 40mg qd w/ mild LE edema [...] Hx Hypothyroidism - TSH 1.2 - Continue FURRIER APPRENTICE synthroid 50mcg daily ID Septic Shock (resolving) [...] be provoked 2/2 prolonged hospital stay in [place] - Continue FURRIER APPRENTICE eliquis 5mg BID FEN - No current IVF - Replace lytes PRN - Cardiac diet PPX: Lines:PIV Drains/Tubes:B/l nephrostomy tubes DVT: Eliquis GI:Protonix PT/OT: Yes Code Status: Full Code Dispo: stable to tx to the floor Pt seen &discussed w/ Dr. Sarahi Pat [facility] Pulmonary Critical Care Pager [phone] M2 pager [phone] ATTESTATION I personally interviewed and examined the [...] no rashes, stage 1 pressure injury per asset manager to R heel & buttocks (not assessed) [...] requiring bilateral nephrostomy tubes, [facility] for MEE, septic shock, found to have [...] and was d/c 07/08. She presented to [facility] on 08/14 in septic shock &non-draining L [...] OSH. Pigtail CT placed on WS and FURRIER APPRENTICE eliquis restarted. Pt downgraded to floor status. Today, pt continues to be stable overnight with no acute issues. Chest tube removed this AM. Assessment/Plan: NEURO: hx Anxiety, Depression - hold FURRIER APPRENTICE: clonazepam 1mg qd prn, norco 10/325 CV: Shock (resolved) - On presentation to OSH and reportedly received 4L IVF with NE started FURRIER APPRENTICE. No pressor needed once admitted to [facility]. [...] nicotine patch GI: hx GERD - Continue FURRIER APPRENTICE: protonix Diarrhea - Cdiff 08/15: negative - Last BM 08/16 RENAL: MEE on CKD (improved) - Baseline Cr ~1.5 - D/t L PCN malfunction - Briefly required HD in May - Renal scan (OSH) 06/17: 70+ function of L kidney & 20 or less function of R kidney - FeUrea 08/15: 30; equivocal - CLOTHING EXAMINER 1.53 on admission --> 0. 78 this AM - IO: 0: Net - 850mL - UOP in 24 hours: 870mL Plan - Restart FURRIER APPRENTICE lasix 40mg qd - Hold FURRIER APPRENTICE torsemide 20mg qd Electrolyte Derrangement - K [...] Hypothyroidism - TSH 1.2 Plan - Continue FURRIER APPRENTICE: Synthroid 50mcg qd ID: Septic Shock (resolving) [...] PIV Tubes:B/l nephrostomy tubes Insulin:No Urinary Catheter:No DVT:FURRIER APPRENTICE eliquis GI ppx:Protonix PT/OT: Yes Code status:Full [...] and was d/c 07/08. She presented to [facility] on 08/14 in septic shock & non-draining [...] OSH. Pigtail CT placed on WS and FURRIER APPRENTICE eliquis restarted. Pt downgraded to floor status. Assessment/Plan: NEURO: hx Anxiety, Depression - hold FURRIER APPRENTICE: clonazepam 1mg qd prn, norco 10/325 CV: [...] tomorrow AM GI: hx GERD - Continue FURRIER APPRENTICE: protonix Diarrhea - Cdiff 08/15: negative RENAL: [...] in 24 hours: 1.4L Plan - Hold FURRIER APPRENTICE: lasix 40mg qd & torsemide 20mg qd [...] Hypothyroidism - TSH 1.2 Plan - Continue FURRIER APPRENTICE: Synthroid 50mcg qd ID: Septic Shock UTI [...] tubes Insulin: No Urinary Catheter: No DVT: FURRIER APPRENTICE eliquis GI ppx: Protonix PT/OT: Yes Code [...] s/p b/l percutaneous nephrostomy tubes. Presented to [facility] 08/14 in septic shock &non-draining L nephrostomy [...] floor. NEURO Hx Anxiety, Depression - Holding FURRIER APPRENTICE clonazepam 1mg daily PRN, norco ->can reorder [...] 80s&SBP 100s GI Hx GERD - Continue FURRIER APPRENTICE protonix Diarrhea - Cdiff - negative - [...] - I/O: -1L/24h; +570ml/admit Plan - Hold FURRIER APPRENTICE lasix 40mg qd & torsemide 20mg qd [...] Hx Hypothyroidism - TSH 1.2 - Continue FURRIER APPRENTICE synthroid 50mcg daily ID Septic Shock (resolving) [...] be provoked 2/2 prolonged hospital stay in [place] - Resume FURRIER APPRENTICE eliquis 5mg BID FEN - No current IVF - Replace lytes PRN - Cardiac diet PPX: Lines: PIV Drains/Tubes: B/l nephrostomy tubes DVT: Eliquis GI: Protonix PT/OT: Yes Code Status: Full Code Dispo: stable to tx to the floor Pt seen & discussed w/ Dr. Sarahi Pat [facility] Pulmonary Critical Care Pager [phone] M2 pager [phone] ATTESTATION I personally interviewed and examined the [...] no rashes, stage 1 pressure injury per asset manager to R heel & buttocks (not assessed) [...] and provide intervention as indicated. Therapist: Terrie Fsih, PT Date: 08/17/2018 * Ebony Paul, RN - 08/16/2018 7:33 PM CDT 9475 Handoff and bedside safety check completed with [...] PT, DPT Date: 08/16/2018 * Storm Rubalcava, NEGIN - 08/16/2018 10:09 AM CDT Formatting of this note may be different from the original. OCCUPATIONAL THERAPY ASSESSMENT NOTE Patient Name: Aracelis Espinal Room/Bed: [place] [address] Admitting Diagnosis: Sepsis Past Medical History: Diagnosis Date Anemia Anxiety disorder Cataract Colon polyps Depression Dyslipidemia Thyroid disorder Ulcer of the stomach and intestine Subjective Pertinent Dx per Physician: 67 y.o. female with a PMH of: hypothyroidism, anxiety/depression, HLD, GERD, R popliteal DVT (07/01/18), b/l uteretral obstruction s/p b/l percutaneous nephrostomy tubes. She presented to [facility] on 08/14 in septic shock & non-draining [...] Bathroom Toilet: Raised Prior Function Level Of Weber: Independent with ADLs and functional transfers; Independent [...] safely live alone. Therapist: Storm Rubalcava OT/Alex [id number] Date: 08/16/2018 * Marci Cha RN - [...] percutaneous nephrostomy tubes. She presented to [facility] on in septic shock & non-draining L [...] today. NEURO: hx Anxiety, Depression - hold FURRIER APPRENTICE: clonazepam 1mg qd prn, norco 10/325 CV: [...] daily CXR GI: hx GERD - continue FURRIER APPRENTICE: protonix Diarrhea - cdiff - Neg - has flexiseal RENAL: MEE on CKD - baseline Cr ~1.5 - d/t L PCN malfunction - briefly required HD in May - renal scan (OSH) 06/17 - 70+ function of L kidney & 20 or less function of R kidney - hold FURRIER APPRENTICE: lasix 40mg qd & torsemide 20mg qd [...] hx Hypothyroidism - TSH 1.2 - continue FURRIER APPRENTICE: synthroid 50mcg qd ID: Septic Shock UTI - WBC 11; afebrile - no prior resistant organisms - CXR 08/15 - no infiltrate - BC (OSH) 08/14 - NGx1d - BC 08/15 - NGTD - UC (OSH) 08/14 - >100k enterobacter; anticipate sensitivities on 08/17 ([facility] Micro lab: [phone]) - UA (R PCN was drawn at [...] lower dose d/t bleeding risk - hold FURRIER APPRENTICE: eliquis 5mg bid --> continue to hold today w/ prior bleeding from PCN Prophylaxis Review: Lines: Central Line Tubes: b/l PCN tubes IVF: S/L Electrolytes: Reviewed and replaced as needed. Diet: Yes Insulin: No Urinary Catheter: No VTE ppx: held for procedure; SCDs GI ppx: protonix PT/OT: Yes Code status: Full Code Disposition: Remain in the MICU. Volodymyr England, TRANSLATIONAL SPECIALIST Pulm/Critical Care Pager [phone] 08/16/2018 M2 team pager (2nd call/nights) [phone] __ Subjective: Aracelis Espinal is a 67 [...] UNIT 63 by this RN and Johanna, EVENT SALES ASSISTANT. VSS, heart rate returning to baseline. Pt [...] b/l percutaneous nephrostomy tubes. She presented to [facility] on in septic shock & non-draining L nephrostomy tube, suspecting urinary source. She was started on NE and then tx'd to [facility]15 as follows w/ [facility]. Has not required NE since presentation to . UC at OSH +GNR & have broadened abx to merrem. Urology following & plan for IR interrogation of b/l PCN. NEURO: hx Anxiety, Depression - hold FURRIER APPRENTICE: clonazepam 1mg qd prn, norco 10/325 CV: [...] at 1400 GI: hx GERD - continue FURRIER APPRENTICE: protonix - NPO for possible procedure RENAL: MEE on CKD - baseline Cr ~1.5 - d/t L PCN malfunction - briefly required HD in May - renal scan (OSH) 06/17 - 70+ function of L kidney & 20 or less function of R kidney - has b/l PCN but L is not draining - hold FURRIER APPRENTICE: lasix 40mg qd & torsemide 20mg qd [...] hx Hypothyroidism - TSH 1.2 - continue FURRIER APPRENTICE: synthroid 50mcg qd ID: Septic Shock UTI - WBC 15.8; Tmax 37.9 - no prior resistant organisms - CXR 08/15 - no infiltrate - BC (OSH) 08/14 - NGx1d - BC 08/15 - ordered - UC (OSH) 08/14 - >100k GNR; likely not PSAE or ecoli ([phone]) - UA (R PCN was drawn at [...] lower dose d/t bleeding risk - hold FURRIER APPRENTICE: eliquis 5mg bid --> w/ planned procedure [...] care. Volodymyr England APRN Pulm/Critical Care Pager [phone] 08/15/2018 M2 team pager (2nd call/nights) [phone] __ Subjective: Aracelis Espinal is a 67 [...] labs reviewed John Paul Caal DO Pager [phone] * Kan Brady MD - 08/15/2018 11:26 [...] uropathy who presents as a transfer from [facility] for severe sepsis, evolving shock, related [...] and left nephrostomy tube placement (06/19/2018) at [facility] S/p right nephrostomy tube placement by IR [...] with ICU attending. Loan Sanford MD (Pager: [phone]) History of Present Illness: Aracelis Espinal is a 67 y.o. female with a medical history significant for hypothyroidism, anxiety/depression, GERD, right popliteal DVT noted 07/01, history bilateral nephroureteral stent placement and bilateral percutaneous nephrostomy tube on 07/01/2018 admission for obstructive uropathy who presents as a transfer from [facility] for septic shock requiring norepinephrine with a malfunctioning nephrostomy tube. Patient presented to [facility] ED with fevers, chills and found [...] Bean MD Urology PGY-2 Please page Urology flooring professional with any questions __ HPI: Aracelis Espinal [...] Faxed signed orders and AVS to [facility] and Dr. Jeny Garcia. Spoke with Magalis at [facility] and they will see patient tomorrow. Walker was delivered to room. Patient ready for discharge from needs. Interventions ? Support ? Info or Referral ? Discharge Planning ? Medication Needs ? Financial ? Legal ? Other Disposition ? Expected Discharge Date Expected Discharge Date: 08/19/18 ? Transportation Does the patient need discharge transport arranged?: No Transportation Name, Phone and Availability #1: Kimber Leggett [phone] Does the patient use Medicaid Transportation?: No ? Next Level of Care (Acute Psych discharges only) ? Discharge Disposition Durable Medical Equipment No service has been selected for the patient. Destination No service has been selected for the patient. Home Care No service has been selected for the patient. Dialysis/Infusion No service has been selected for the patient. Agnes Bryant RN, BSN Nurse Internet Assessor [phone] or [phone] * Case Mgmt DC Plan - Viviana Marin - 08/19/2018 12:08 PM CDT METAL CABINET FINISHER Note: Delivered Standard Roller Walker to pt's bedside, per request from Agnes Bryant [facility]*1012. Viviana Marin Under Sheriff . * Critical Results - Sherie Real RN - 08/19/2018 9:41 AM CDT Critical result or procedure called (document test and value, and read back): Positive culture of Gram negative rods from one bottle drawn at [facility] /AUTOMOBILE TAILLIGHT ASSEMBLER Notified: 0942 MD/AUTOMOBILE TAILLIGHT ASSEMBLER Name: Cleo MOROCHO/DAGO Response/Orders Given: Will pass along to DEBORAH Holguin * Transfer - Xiomara Pat APRN - 08/18/2018 11:12 AM CDT In-Hospital Transfer Note Admission Diagnosis: UTI, non-draining L perc nephrostomy tube Admission Date: 08/15/2018 Active Hospital Problem List: Principal Problem: Septic shock ([facility]) Active Problems: Anxiety Major depressive disorder with single episode, in remission ([facility]) Gastroesophageal reflux disease without esophagitis Hypothyroidism due to acquired atrophy of thyroid Vitamin D deficiency Acute deep vein thrombosis (DVT) of distal end of right lower extremity (HCC) Obesity (BMI 30-39.9) Bilateral ureteral obstruction Pneumothorax, iatrogenic Hospital Course: 67 y/o Fw/PMH hypothyroidism, anxiety/depression, HLD, GERD, R popliteal DVT (07/01/18), b/l uteretral obstruction s/p b/l percutaneous nephrostomy tubes. Presented to [facility] 08/14 in septic shock &non-draining L nephrostomy [...] enterobacter, klebsiella & E Faecalis (VSE) - FURRIER APPRENTICE apixaban for DVT in June Procedures With [...] her tomorrow to give recs. Chelsie Pat [facility] Pulmonary Critical Care Pager [phone] M2 pager [phone] * Care Plan - Parveen Michaud RN [...] Procedure(s): Left chest tube placement Findings: 8 czech chest tube placed. Large volume free air aspirated. See PACS dictation for additional description. Estimated Blood Loss: None/Negligible Specimen(s) Removed/Disposition: None Complications: None Patient Tolerated Procedure: Well Post-Procedure Condition: stable John Paul Caal DO Pager [phone] * Care Plan - Storm Rubalcava OT [...] Post-Procedure Condition: improved Ketan Wills MD Pager [phone] * Case Mgmt DC Plan - Agnes [...] Name, Phone and Availability #1: Kimber Leggett [phone] Does the patient use Medicaid Transportation?: No [...] selected for the patient. Patient Address/Phone [address] [phone] (home) Emergency Contact Extended Emergency Contact Information Primary Emergency Contact: Kimber Perez [facility] Relation: [facility] Directive Transportation Does the patient need discharge transport arranged?: No Transportation Name, Phone and Availability #1: Kimber Leggett [phone] Does the patient use Medicaid Transportation?: No [...] ? PCP Jeny Garcia, , ? Pharmacy [address] [place] [address] [facility] [address] ? Durable Medical Equipment Durable Medical Equipment at home: (Denies) ? Home Health Receiving home health: Yes Agency name: [facility] [phone] Would patient use this agency again?: Yes [...] ? Outpatient Therapy PT: No OT: No EMAIL MARKETING SPECIALIST: No ? Mcfp Facility/Long-Term SNF: No NH: No ? Inpatient Rehab IPR: No ? Long-Term Acute Care Hospital LTACH: No ? Acute Hospital Stay Acute Hospital Stay: Yes Was patient's stay within the last 30 days?: No When did patient receive care?: 07/01/18 Name of hospital: KAILEY Bryant RN, BSN Nurse Internet Assessor [phone] or [phone] * Critical Results - Jody Hernandez RN - 08/15/2018 6:14 AM CDT Critical result or procedure called (document test and value, and read back): Potassium 2.5 Time MD/AUTOMOBILE TAILLIGHT ASSEMBLER Notified: 0615 MD/AUTOMOBILE TAILLIGHT ASSEMBLER Name: MD/AUTOMOBILE TAILLIGHT ASSEMBLER Response/Orders Given: Will place orders * Advanced [...] Specimen Blood Performing Organization Address [facility] Phone Number [facility] [address] [place] [address] * MAGNESIUM (08/19/2018 3:10 AM) Magnesium 1.7 1.6 - 2.6 mg/dL [facility] Specimen Blood Performing Organization Address [facility] Phone Number [facility] [address] [place] [address] * CBC AND DIFF (08/19/2018 3:10 AM) [...] Specimen Blood Performing Organization Address [facility] Phone Number [facility] [address] [place] [address] * BASIC METABOLIC PANEL (08/19/2018 3:10 AM) [...] Blood Performing Organization Address City/State/Zipcode Phone Number [facility] [address] [place] [address] * ECG-SCAN (08/18/2018 8:05 PM) Narrative Performed [...] on 08/18/2018 9:54 AM. Performing Organization Address [facility] Phone Number [facility] RES[facility] * PHOSPHORUS (08/18/2018 2:25 AM) Phosphorus 1.5 (L)Comment: NOTE NEW 2.0 - 4.5 MG/DL [facility] REFERENCE RANGES Specimen Blood Performing Organization Address [facility] Phone Number [facility] [address] [place] [phone] * MAGNESIUM (08/18/2018 2:25 AM) Magnesium 1.8 1.6 - 2.6 mg/dL [facility] Specimen Blood Performing Organization Address [facility] Phone Number [facility] [address] [place] [phone] * CBC AND DIFF (08/18/2018 2:25 AM) [...] Specimen Blood Performing Organization Address [facility] Phone Number [facility] [address] [place] [address] * BASIC METABOLIC PANEL (08/18/2018 2:25 AM) [...] for questions. Specimen Blood Performing Organization Address [facility] Phone Number [facility] [address] [place] [address] * PHOSPHORUS (08/17/2018 3:50 AM) Phosphorus 1.7 (L)Comment: NOTE NEW 2.0 - 4.5 MG/DL [facility] REFERENCE RANGES Specimen Blood Performing Organization Address City/[facility] Phone Number [facility] [address] [place] [address] * MAGNESIUM (08/17/2018 3:50 AM) Magnesium 2.1 1.6 - 2.6 mg/dL [facility] Specimen Blood Performing Organization Address City/State/Zipcode Phone Number [facility] [address] [place] [address] * COMPREHENSIVE METABOLIC PANEL (08/17/2018 3:50 AM) [...] City/State/Zipcode Phone Number MAIN LAB [address] [place] [address] * CBC AND DIFF (08/17/2018 3:50 AM) [...] City/State/Zipcode Phone Number [facility] [address] [place] [address] * CHEST SINGLE VIEW (08/17/2018 3:46 AM) [...] on 08/17/2018 7:38 AM. Performing Organization Address City/State/[facility] Phone Number [facility] RESULTS * CHEST [...] on 08/16/2018 5:54 PM. Performing Organization Address City/[facility] Phone Number [facility] RESULTS * IR ASPIRATION/DRAIN (08/16/2018 4:14 PM) Impressions Performed At Successful placement of a left-sided 8-Macedonian pigtail drain for pneumothorax. [facility] RESULTS [...] mg IV Versed; 50 mcg IV fentanyl. DUMPSTER DRIVER: Ash Capellan D.O. TECHNIQUE AND FINDINGS: A [...] needle. The needle was removed, and an 8-Macedonian pigtail drainage catheter was advanced over the [...] mg IV Versed; 50 mcg IV fentanyl. DUMPSTER DRIVER: Ash Capellan D.O. TECHNIQUE AND FINDINGS: A [...] The needle was removed, and an 8- Macedonian pigtail drainage catheter was advanced over the wire. A large volume of free air was hand aspirated. The catheter was secured to the skin with suture. Hemostasis was achieved with manual compression, and a sterile, occlusive dressing was applied. The patient tolerated the procedure well and left the department in stable condition. IMPRESSION Successful placement of a left-sided 8-Macedonian pigtail drain for pneumothorax. I, Kev Philip [...] City/State/Zipcode Phone Number [facility] [address] [place] [address] * CHEST SINGLE VIEW (08/16/2018 4:38 AM) [...] MAIN LAB Specimen Blood Performing Organization Address City/[facility] Phone Number [facility] [address] [place] [address] * COMPREHENSIVE METABOLIC PANEL (08/16/2018 4:09 AM) [...] for questions. Specimen Blood Performing Organization Address City/[facility]/Zipcode Phone Number MAIN LAB [address] [place] [address] * CBC AND DIFF (08/16/2018 4:09 AM) [...] MAIN LAB Specimen Blood Performing Organization Address City/[facility]/Zipcode Phone Number [facility] [address] [place] [address] * PHOSPHORUS (08/16/2018 4:09 AM) Phosphorus 2.1Comment: NOTE NEW REFERENCE 2.0 - 4.5 MG/DL [facility] RANGES Specimen Blood Performing Organization Address City/[facility]/Zipcode Phone Number [facility] [address] [place] [address] * BASIC METABOLIC PANEL (08/15/2018 4:40 PM) [...] for questions. Specimen Blood Performing Organization Address City/[facility]/Zipcode Phone Number MAIN LAB [address] [place] [address] * MAGNESIUM (08/15/2018 4:40 PM) Magnesium 2.0 1.6 - 2.6 mg/dL MAIN LAB Specimen Blood Performing Organization Address City/[facility]/Zipcode Phone Number [facility] [address] [place] [address] * C DIFFICILE BY PCR (08/15/2018 2:30 PM) Battery Name C DIFFICILE PCR MAIN LAB Specimen Description FECES MAIN LAB Special Requests NONE MAIN LAB C. Difficile Toxin B PCR NEGATIVE-wait 7 days to repeat MAIN LAB test Report Status FINAL MAIN LAB 08/15/2018 Specimen Feces Performing Organization Address [facility]/Zipcode Phone Number [facility] [address] [place] [address] * CHEST SINGLE VIEW (08/15/2018 2:07 PM) [...] on 08/15/2018 2:20 PM. Performing Organization Address City/[facility]/Zipcode Phone Number [facility] RESULTS * NOTES (08/15/2018 12:25 PM) Specimen Notes left neph urine REFERENCE LAB Performing Organization Address City/[facility]/Zipcode Phone Number REFERENCE LAB REFERENCE LAB See results for address. * URINALYSIS, MICROSCOPIC (08/15/2018 12:25 PM) WBCs,UA PACKED 0 - 2 /HPF [facility] RBCs,UA PACKED 0 - 3 /HPF [facility] MucousUA 1+ [facility] Bacteria,UA MANY (A) NEG-NEG [facility] Specimen Urine - Urine,Nephrostomy Performing Organization Address City/[facility]/Zipcode Phone Number [facility] [address] [place] [address] * CULTURE-URINE W/SENSITIVITY (08/15/2018 12:25 PM) Battery [...] Address City/State/Zipcode Phone Number MAIN LAB [address] [place] [address] * IR ASPIRATION/DRAIN (08/15/2018 12:15 PM) Impressions Performed At 1.Malpositioned left percutaneous nephrostomy tube, retracted into the [facility] RES[facility] perinephric space. Therefore, a new 8.5 Macedonian nephrostomy tube was placed as described above. 2.Uneventful exchange of 8.5 Macedonian right sided percutaneous nephrostomy tube. I, Gilberto [...] sheath was then removed and an 8 Macedonian pigtail catheter was advanced into the renal pelvis. The Rincon loop was formed. Contrast was instilled into [...] catheter was exchanged for a fresh 8.5 Macedonian percutaneous nephrostomy tube. The cope loop was [...] sheath was then removed and an 8 Macedonian pigtail catheter was advanced into the renal pelvis. The Rincon loop was formed. Contrast was instilled into [...] catheter was exchanged for a fresh 8.5 Macedonian percutaneous nephrostomy tube. The cope loop was [...] the perinephric space. Therefore, a new 8.5 Macedonian nephrostomy tube was placed as described above. 2. Uneventful exchange of 8.5 Macedonian right sided percutaneous nephrostomy tube. I, Gilberto [...] on 08/17/2018 3:18 PM. Performing Organization Address City/[facility]/Zipcode Phone Number RAD RESULTS * NOTES (08/15/2018 12:07 PM) Specimen Notes right neph urine REFERENCE LAB Performing Organization Address City/[facility]/Zipcode Phone Number REFERENCE LAB REFERENCE LAB See [...] Specimen Urine - Urine,Nephrostomy Performing Organization Address City/[facility]/Zipcode Phone Number [facility] [address] [place] [address] * CULTURE-URINE W/SENSITIVITY (08/15/2018 12:07 PM) Battery Name URINE CULTURE [facility] Specimen Description URINE,NEPHROSTOMY [facility] Special Requests NONE [facility] Culture >100,000 organisms/ml [facility] ENTEROCOCCUS FAECALIS See susceptibility on duplicate isolate >100,000 organisms/ml GAMMA HEMOLYTIC STREPTOCOCCUS <10,000 organisms/ml CONTAMINANT Report Status FINAL MAIN LAB 08/17/2018 Specimen Urine - Urine,Nephrostomy Performing Organization Address [facility] Phone Number MAIN LAB [address] [place] [address] * MAGNESIUM (08/15/2018 10:20 AM) Magnesium 2.3 1.6 - 2.6 mg/dL MAIN LAB Specimen Blood Performing Organization Address [facility] Phone Number MAIN LAB [address] [place] [address] * BASIC METABOLIC PANEL (08/15/2018 10:20 AM) [...] for questions. Specimen Blood Performing Organization Address [facility] Phone Number MAIN LAB [address] [place] [address] * TROPONIN-I (08/15/2018 10:20 AM) Troponin-I 0.03 0.0 - 0.05 NG/ML MAIN LAB Specimen Blood Performing Organization Address City/[facility] Phone Number MAIN LAB [address] [place] [address] * UREA NITROGEN-URINE RANDOM (08/15/2018 7:50 AM) Urea Nitrogen 461 MG/DL MAIN LAB Specimen Urine - Urine Performing Organization Address City/[facility]/Zipcode Phone Number MAIN LAB [address] [place] [address] * CREATININE-URINE RANDOM (08/15/2018 7:50 AM) Creatinine, Random 83 MG/DL MAIN LAB Specimen Urine - Urine Performing Organization Address City/[facility]/Zipcode Phone Number MAIN LAB [address] [place] [address] * CULTURE-URINE W/SENSITIVITY (08/15/2018 7:50 AM) Battery [...] INTERPRETATION INTERPRETATION enterobacter) aerogenes Performing Organization Address [facility] Phone Number [facility] [address] [place] [address] * URINALYSIS, MICROSCOPIC (08/15/2018 7:50 AM) WBCs,UA PACKED 0 - 2 /HPF [facility] RBCs,UA 20-50 0 - 3 /HPF [facility] MucousUA 1+ [facility] Bacteria,UA FEW (A) NEG-NEG [facility] Squamous Epithelial Cells 0-2 0 - 5 [facility] Amorphous Sedimate,UA FEW [facility] Specimen Urine - Urine Performing Organization Address [facility] Phone Number [facility] [address] [place] [address] * URINALYSIS DIPSTICK (08/15/2018 7:50 AM) Color,UA YELLOW [facility] Turbidity,UA 2+ (A) CLEAR-CLEAR [facility] Specific [place]-Urine 1.013 1.003 - 1.035 [facility] [...] - Urine Performing Organization Address [facility] Phone Number [facility] [address] [facility] [address] * ABDOMEN AP ONLY (08/15/2018 6:55 AM) [...] AM. Performing Organization Address City/State/Zipcode Phone Number [facility] RAD RESULTS * TROPONIN-I (08/15/2018 6:50 AM) Troponin-I 0.04 0.0 - 0.05 NG/ML [facility] Specimen Blood Performing Organization Address City/State/Zipcode Phone Number [facility] [address] [place] [address] * CULTURE-BLOOD W/SENSITIVITY (08/15/2018 4:59 AM) Battery Name BLOOD CULTURE [facility] Specimen Description BLOOD [facility] RIGHT FA Special Requests NONE [facility] Culture NO GROWTH 5 DAYS [facility] Report Status FINAL [facility] 08/21/2018 Specimen Blood Performing Organization Address [facility] Phone Number MAIN LAB [address] [place] [address] * PHOSPHORUS (08/15/2018 4:55 AM) Phosphorus 2.5Comment: NOTE NEW REFERENCE 2.0 - 4.5 MG/DL MAIN LAB RANGES Specimen Blood Performing Organization Address [facility] Phone Number MAIN LAB [address] [place] [address] * TSH WITH FREE T4 REFLEX (08/15/2018 4:55 AM) TSH 1.200 0.35 - 5.00 MCU/ML MAIN LAB Specimen Blood Performing Organization Address [facility] Phone Number MAIN LAB [address] [place] [address] * TROPONIN-I (08/15/2018 4:55 AM) Troponin-I 0.03 0.0 - 0.05 NG/ML MAIN LAB Specimen Blood Performing Organization Address [facility] Phone Number MAIN LAB [address] [place] [address] * BNP (B-TYPE NATRIURETIC PEPTI) (08/15/2018 4:55 AM) B Type Natriuretic 129.0 (H) 0 - 100 PG/ML MAIN LAB Peptide Specimen Blood Performing Organization Address [facility] Phone Number MAIN LAB [address] [place] [address] * MAGNESIUM (08/15/2018 4:55 AM) Magnesium 1.1 (L) 1.6 - 2.6 mg/dL MAIN LAB Specimen Blood Performing Organization Address [facility] Phone Number MAIN LAB [address] [place] [address] * LACTIC ACID (BG - RAPID LACTATE) (08/15/2018 4:55 AM) Lactic Acid,BG 1.0 0.5 - 2.0 MMOL/L MAIN LAB Specimen Blood Performing Organization Address [facility] Phone Number MAIN LAB [address] [place] [address] * COMPREHENSIVE METABOLIC PANEL (08/15/2018 4:55 AM) [...] for questions. Specimen Blood Performing Organization Address City/[facility]/Zipcode Phone Number MAIN LAB [address] [place] [address] * PTT (APTT) (08/15/2018 4:55 AM) APTT 28.6Comment: NOTE NEW 20.0 - 36.0 SEC [facility] REFERENCE RANGES Specimen Blood Performing Organization Address City/[facility]/Zipcode Phone Number [facility] [address] [place] [address] * PROTIME INR (PT) (08/15/2018 4:55 AM) INR 2.0 (H) 0.8 - 1.2 MAIN LAB Specimen Blood Performing Organization Address City/[facility]/Zipcode Phone Number MAIN LAB [address] [place] [address] * CBC AND DIFF (08/15/2018 4:55 AM) [...] MAIN LAB Specimen Blood Performing Organization Address City/[facility]/Zipcode Phone Number MAIN LAB [address] [place] [address] * CULTURE-BLOOD W/SENSITIVITY (08/15/2018 4:50 AM) Battery Name BLOOD CULTURE MAIN LAB Specimen Description BLOOD MAIN LAB LEFT CVC [place] Special Requests NONE MAIN LAB Culture NO GROWTH 5 DAYS MAIN LAB Report Status FINAL MAIN LAB 08/21/2018 Specimen Blood Performing Organization Address City/[facility]/Zipcode Phone Number MAIN LAB [address] [place] [address] * GENERAL RAD ABDOMEN EXTERNAL IMAGING (08/15/2018) [...] Administer over 4 Hours, ONCE, 1 dose, [place] 08/18/18 at 0315, Each 10mM K Phos [...]
--- OUTSIDE RECORDS SUMMARY | 2018-08-30 16:57 | XMS REPORT | Encounter Summary ---
Author Author [facility] Organization [facility] Address Unknown Phone Unavailable Care Team Providers Care Medical Assistant Dermatology Name Role Phone Jeny Garcia MD PCP Encounter Details Date Type Department Care Team Description 08/14/[address] [facility] Encounter Hospital Radiology Main [facility] [address] [place] [address] Social History Tobacco Use Types Packs/Day Years [...]
--- OUTSIDE RECORDS SUMMARY | 2018-08-30 16:57 | XMS REPORT | Encounter Summary ---
Author Author [facility] Organization [facility] Address Unknown Phone Unavailable Care Team Providers Care Communications Superintendent Name Role Phone Jeny Garcia MD PCP Encounter Details Date Type Department Care Team Description 08/15/2018 PAC Office Preoperative Assessment Perry Moseley MD Canceled Visit Clinic [address] [facility] (Patient-Hospitalized) [facility] 1st fl [address] [place] [address] [place] [address] [phone] Social History Tobacco Use Types Packs/Day Years [...]
--- OUTSIDE RECORDS SUMMARY | 2018-08-30 16:57 | XMS REPORT | Encounter Summary ---
Author Author [facility] Organization [facility] Address Unknown Phone Unavailable Care Team Providers Care Cat Hooker Name Role Phone Jeny Garcia MD PCP Encounter Details Date Type Department Care Team Description 08/14/2018 Hospital [facility] Encounter Hospital Radiology Main Hospital [address] [place] [address] Social History Tobacco Use Types Packs/Day Years [...]
--- OUTSIDE RECORDS SUMMARY | 2018-08-30 16:57 | XMS REPORT | Encounter Summary ---
Author Author [facility] Organization [facility] Address Unknown Phone Unavailable Care Team Providers Care Edge Finisher Name Role Phone Jeny Garcia MD PCP Encounter Details Date Type Department Care Team Description 07/30/2018 Prep for Case [facility] Perry Moseley MD Bilateral ureteral Cancer Center - IC Exam [address] obstruction (Primary Dx) [address] [place] [address] [place] [address] [phone] Social History Tobacco Use Types Packs/Day Years [...]
--- OUTSIDE RECORDS SUMMARY | 2018-08-30 16:57 | XMS REPORT | Encounter Summary ---
Author Author [facility] Organization [facility] Address Unknown Phone Unavailable Care Team Providers Care Infant Teacher Name Role Phone Jeny Garcia MD PCP Encounter Details Date Type Department Care Team Description 08/15/2018 Hospital [facility] Encounter Hospital Radiology Main Hospital [address] [place] [address] Social History Tobacco Use Types Packs/Day Years [...] section. in this encounter Results * ECG-SCAN (08/26/2018 10:19 AM) Narrative Performed At Ordered by an unspecified provider. in this encounter Visit Diagnoses Not on filein this encounter
--- OUTSIDE RECORDS SUMMARY | 2018-08-30 16:58 | XMS REPORT | Encounter Summary ---
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 You DO NOT need to stop: iron, magnesium, potassium 7 days prior to surgery: ? Stop anti-inflammatory medications such as ibuprofen (Advil, Motrin), naproxen (Aleve), Ester-Conway, Excedrin, Midol, celecoxib (Celebrex), diclofenac (Voltaren), diflunisal, [...] evenings, nights, weekends, and holidays, contact [facility] pressure test operator and request they contact the on-call Urology Resident at [phone]. in this encounter Progress Notes * Perry [...]
--- OUTSIDE RECORDS SUMMARY | 2018-08-30 17:00 | XMS REPORT | Encounter Summary ---
Author Author [facility] Organization [facility] Address Unknown Phone Unavailable Care Team Providers Care Economics Teacher Name Role Phone No Pcp, Na PCP Unavailable Jeny Garcia MD PCP Encounter Details Date Type Department Care Team Description 06/27/2018 Ancillary Rad Outpatient, Radiologist Diagnosis unknown Orders [address] [place] [address] Social History Tobacco Use Types [...]
--- OUTSIDE RECORDS SUMMARY | 2018-08-30 17:00 | XMS REPORT | Encounter Summary ---
Author Author [facility] Organization [facility] Address Unknown Phone Unavailable Care Team Providers Care Lean Facilitator Name Role Phone Jeny Garcia MD PCP Reason for Visit * Reason Comments Hydronephrosis * Consult, Test & Treat (Routine) Status Reason Specialty Diagnoses / Referred By Referred To Procedures Contact Contact No Auth Needed Urology Diagnoses Perry Moseley MD New - [address] Obstructive [address] Neuropathy/Urina [place], [place] ry Diversion [address] Recs from Phone: [place] [phone] P rocedures NEW PATIENT Encounter Details Date Type Department Care Team Description 07/01/2018 Office Visit [facility] Perry Moseley MD Hydronephrosis, Physicians - Urology [address] unspecified Ortho and Medical [address] hydronephrosis type [address] [place] [address] [phone] [place] [address] Social History Tobacco Use Types [...] F referred for bilateral hydronephrosis. Presented to [facility] with Cr 9.3 complaining of fatigue, [...]
--- OUTSIDE RECORDS SUMMARY | 2018-08-30 17:00 | XMS REPORT | Encounter Summary ---
Author Author [facility] Organization [facility] Address Unknown Phone Unavailable Care Team Providers Care Bad Cloth Checker Name Role Phone Jeny Garcia MD PCP Encounter Details Date Type Department Care Team Description 07/01/2018 Procedure Pass Medicine Telemetry [address] [place] [address] Social History Tobacco Use Types [...]
--- OUTSIDE RECORDS SUMMARY | 2018-08-30 17:00 | XMS REPORT | Encounter Summary ---
Author Author [facility] Organization [facility] Address Unknown Phone Unavailable Care Team Providers Care Reactor Kettle Operator Name Role Phone PCP Unavailable Encounter Details Date Type Department Care Team Description 06/15/2018 Hospital [facility] Encounter Hospital Radiology Main Hospital 2nd fl [address] [place], [place] [id number] Social History Tobacco Use Types Packs/Day Years [...]
--- OUTSIDE RECORDS SUMMARY | 2018-08-30 17:00 | XMS REPORT | Encounter Summary ---
Author Author [facility] Organization [facility] Address Unknown Phone Unavailable Care Team Providers Care Nuclear Weapons Specialist Name Role Phone PCP Unavailable Encounter Details Date Type Department Care Team Description 06/17/2018 Hospital [facility] Encounter Hospital Radiology Main Hospital 2nd fl [address] [place], [place] [phone] Social History Tobacco Use Types Packs/Day Years [...] Name Priority Date/Time Associated Diagnosis Comments [place] [facility] EXTERNAL IMAGING Routine 06/17/2018 Diagnosis unknown Results for this 12:00 AM CDT procedure are in the results section. in this encounter Results * [place] [facility] EXTERNAL IMAGING (06/17/2018) Narrative Performed At This order has been auto finalized and does not contain a result. in this encounter Visit Diagnoses Diagnosis Diagnosis unknown Other unknown and unspecified cause of morbidity or mortality
--- OUTSIDE RECORDS SUMMARY | 2018-08-30 17:00 | XMS REPORT | Encounter Summary ---
Author Author [facility] Organization [facility] Address Unknown Phone Unavailable Care Team Providers Care Type Copy Examiner Name Role Phone PCP Unavailable Encounter Details Date Type Department Care Team Description 06/22/2018 Hospital [facility] Encounter Hospital Radiology Main Hospital 2nd fl [address] [place], [place] [phone] Social History Tobacco Use Types Packs/Day Years [...]
--- OUTSIDE RECORDS SUMMARY | 2018-08-30 17:00 | XMS REPORT | Encounter Summary ---
Author Author [facility] Organization [facility] Address Unknown Phone Unavailable Care Team Providers Care Academic Support Director Name Role Phone PCP Unavailable Encounter Details Date Type Department Care Team Description 06/25/2018 Hospital [facility] Encounter Hospital Radiology Main Hospital 2nd fl [address] [place], [place] [phone] Social History Tobacco Use Types Packs/Day Years [...]
--- OUTSIDE RECORDS SUMMARY | 2018-08-30 17:00 | XMS REPORT | Encounter Summary ---
Author Author [facility] Organization [facility] Address Unknown Phone Unavailable Care Team Providers Care Fur Examiner Name Role Phone PCP Unavailable Encounter Details Date Type Department Care Team Description 06/24/2018 Hospital [facility] Encounter Hospital Radiology Main Hospital 2nd fl [address] [place], [place] [phone] Social History Tobacco Use Types Packs/Day Years [...]
--- OUTSIDE RECORDS SUMMARY | 2018-08-30 17:00 | XMS REPORT | Encounter Summary ---
Author Author [facility] Organization [facility] Address Unknown Phone Unavailable Care Team Providers Care Transport Corps Officer Name Role Phone PCP Unavailable Encounter Details Date Type Department Care Team Description 06/19/2018 Hospital [facility] Encounter Hospital Radiology Main Hospital 2nd fl [address] [place], [place] [phone] Social History Tobacco Use Types Packs/Day Years [...]
--- OUTSIDE RECORDS SUMMARY | 2018-08-30 17:00 | XMS REPORT | Encounter Summary ---
Author Author [facility] Organization [facility] Address Unknown Phone Unavailable Care Team Providers Care Public Health Technician Name Role Phone Jeny Garcia MD PCP Reason for Visit * Reason Comments Edema Bilateral leg edema, SOB, no urine output from neph tube * Auth/Cert Status Reason Specialty Diagnoses / Referred By Referred To Procedures Contact Contact Diagnoses Obstructive uropathy Bilateral leg edema Encounter Details Date Type Department Care Team Description 07/01/2018 Hospital Medicine Telemetry Darrick Lazo MD Obstructive uropathy - Encounter [facility] 4th fl Unit [address] [facility] 07/08/2018 46 MS 1045 [address] [place] [address] [place] [address] [phone] [place] [address] [place] [address] [phone] Estela Avila DO [address] [place] [address] [phone] [place] [address] [place] [address] [facility] [place] [address] [phone] Social History Tobacco Use Types Packs/Day Years [...] date: 07/08/2018 Attending Physician: LOTTIE AGUILAR Service: [facility] 3405 Physician Summary completed by: Lottie Aguilar MD Reason for hospitalization: 67 year old female who was referred to ED from urology clinice 07/01 for exertional dyspnea and progressive BLE edema. Significant PMH: anxiety, depression, GERD, hypothyroidism, vitamin D deficiency , obesity with BMI 32.2 and recent prolonged admission at [facility] for MEE likely due to an obstructive [...] Range Color,UA YELLOW Turbidity,UA CLEAR CLEAR-CLEAR Specific [place]-Urine 1.010 1.003 - 1.035 pH,UA 6.0 5.0 [...] 07/01/18 2:31 PM Result Value Ref Range Fljtxvpx-L-ZGK 0.00 0.00 - 0.05 NG/ML BNP POC [...] Renal and urology were consulted. Work-up at [facility] was significant for the following studies: [...] (06/19) at OSH. -During her admission at [facility], her creatinine peaked at 9. Creatinine [...] primary care provider refer her to a molding sander closer to home. Nephrostomy tubes should be [...] debility. PT and OT recommended home with shampoo assistant versus home health. 5. Diet. She was discharged on a low sodium diet. Dietitian was consulted per patient's request for low-sodium education. 6. All other chronic medical issues were stable, so no further changes were made other outpatient regimen. 7. Disposition Discharge to home with [facility]. Condition at Discharge: Stable Discharge Diagnoses: Hospital Problems Active Problems Hydronephrosis Obstructive uropathy Bilateral leg edema Anxiety Major depressive disorder with single episode, in remission (HCC) Gastroesophageal reflux disease without esophagitis Hypothyroidism due to acquired atrophy of thyroid Vitamin D deficiency MEE (acute kidney injury) ([facility]) Pyuria Volume overload Acute deep vein thrombosis (DVT) of distal end of right lower extremity ([facility]) Debility Obesity (BMI 30-39.9) Surgical Procedures: None [...] or concerns regarding your hospital stay. Call [phone] Discharging attending physician: LOTTIE AGUILAR [[id number]] Low Sodium Diet You will need to [...] will also need a referral to a molding sander closer to your home. Current Discharge Medication [...] Op with Perry Moseley MD [facility] - IC Exam (CC Exam) [id number] [facility] [address] Pending items needing follow up: none Signed: Lottie Aguilar MD 07/08/2018 cc: Primary Care Physician: Jeny Garcia Verified in this encounter Discharge Instructions * Discharge Instr - Case Management - Roxi Decker RN - 07/08/2018 9:55 AM CDT You have been set up with [facility] for intermediate, PT and OT. . They will contact you later today or tomorrow to set up your first appointment. It you don't hear from them by tomorrow, please contact them at ([phone]). * Patient Instructions - Cyndie Verasarecharles RN [...] or concerns related to the procedure, call [phone] for Sunday-Sunday 7-5. After-hours and weekends, please call [phone] and ask for the Interventional Superintendent Oil Field Drilling on-call. in this encounter Medications at Time [...] Vitamin D deficiency MEE (acute kidney injury) ([facility]) Pyuria Volume overload Acute deep vein thrombosis (DVT) of distal end of right lower extremity ([facility]) Debility Obesity (BMI 30-39.9) Aracelis Espinal is [...] day - she would like to find molding sander close to home in [place] and has PCP appointment his week Patient discussed with primary team Marisol Arias MD Pager [phone] Subjective Aracelis Espinal is a 67 y.o. [...] hours. Invalid input(s): PC02A * Vanessa Castro, STRAIGHTENING PRESS OPERATOR - 07/08/2018 10:50 AM CDT PHYSICAL THERAPY [...] as indicated. Therapist: Vanessa Castro, Physical therapist shampoo assistant Date: 07/08/2018 * Lottie Aguilar MD [...] D deficiency, and recent prolonged admission at [facility] for MEE likely due to an obstructive [...] (06/19) at OSH. -During her admission at [facility], her creatinine peaked at 9. Creatinine [...] debility. PT and OT recommended home with shampoo assistant versus home health. FEN: -No IVF -Hypokalemia. Replace. -Low Na diet with 2L fluid restriction. Dietitian consult per patient's request for low-sodium education. DVT ppx: Eliquis Full code. Confirm with patient. Kimber (sister) is DPOA: [phone]. Disp: Continue inpatient care. Anticipate discharge Sunday. Will need resumption [facility] at discharge. I spent a total of 45 minutes in pt care today with an estimated 20 minutes spent reviewing chart and coordinating care. Reminder of time was spent examining patient, discussing care plan, and answering patient questions in the patient's room. Complexity of medical decision making is high because of the multi-system nature of disease process. Lottie Aguilar MD Hospitalist [phone] __ Subjective: No overnight events. Difficulty sleeping [...] results for input(s): PHART, PCO2A, PO2ART, HCO3A, A6RVHXQCR in the last 72 hours. * Leydi [...] D deficiency, and recent prolonged admission at [facility] for MEE likely due to an obstructive [...] (06/19) at OSH. -During her admission at [facility], her creatinine peaked at 9. Creatinine [...] debility. PT and OT recommended home with shampoo assistant versus home health. FEN: -No IVF -Lytes ok -Low Na diet with 2L fluid restriction. Dietitian consult per patient's request for low-sodium education. DVT ppx: Eliquis Full code. Confirm with patient. Kimber (sister) is DPOA: [phone]. Disp: Continue inpatient care. Anticipate discharge Sunday. Will need resumption [facility] at discharge. I spent a total of 45 minutes in pt care today with an estimated 20 minutes spent reviewing chart and coordinating care. Reminder of time was spent examining patient, discussing care plan, and answering patient questions in the patient's room. Complexity of medical decision making is high because of the multi-system nature of disease process. Lottie Aguilar MD Hospitalist [phone] __ Subjective: No overnight events. Feeling better. [...] results for input(s): PHART, PCO2A, PO2ART, HCO3A, [id number] in the last 72 hours. * Debi [...] with primary team Marisol Arias MD Pager [phone] Subjective Aracelis Espinal is a 67 y.o. [...] hours. Invalid input(s): PC02A * Vanessa Castro, STRAIGHTENING PRESS OPERATOR - 07/05/2018 10:41 AM CDT PHYSICAL THERAPY PROGRESS NOTE MOBILITY: Mobility Progressive Mobility Level: Walk laps Distance Walked (feet): 400 ft Level of Assistance: Independent Assistive Device: None Time Tolerated: 11-30 minutes Activity Limited By: Fatigue SUBJECTIVE: Subjective Significant hospital events: 67 y.o. F with history of anxiety, depression, HLD with recent prolonged admission to [facility] in [place] for acute renal failure. She was found [...] for: Stairs Therapist: Vanessa Castro, Physical therapist shampoo assistant Date: 07/05/2018 * Debi Zhao RN [...] depression, HLD with recent prolonged admission to [facility] in [place] for acute renal failure. She was found [...] renal failure by PCP and sent to [facility], was admitted for about 3 weeks. [...] (Last 24 hours) Glucose: (!) 110 (07/05/18 6814) Radiology and other Diagnostics Review: Pertinent radiology reviewed. Estela Ghosh DO Pager [phone] * Marisol Arias MD - 07/04/2018 2:11 [...] with primary team Marisol Arias MD Pager [phone] Subjective Aracelis Espinal is a 67 y.o. [...] from the original. General Progress Note Name: Arcaelis Espinal Today's Date: 07/04/2018 Admission Date: 07/01/2018 LOS: 3 days Assessment/Plan: Active Problems: Obstructive uropathy Bilateral leg edema Ms Espinal is a 67 y.o. F with history of anxiety, depression, HLD with recent prolonged admission to [facility] in [place] for acute renal failure. She was found [...] renal failure by PCP and sent to [facility], was admitted for about 3 weeks. [...] Pertinent radiology reviewed. Estela Ghosh DO Pager [phone] * Marbella Espana RN - 07/04/2018 5:25 AM CDT Shift: Night Mentation: A/O x4 Cardiac: S1, S2, regular rhythm Respiratory: RA, non-labored GI/: voids, last BM: 07/02 Nutrition: went NPO at [place] Activity: SBA Pain: no c/o pain Family: no family present Follow up: Plan of care is on going * Paris Rea - 07/03/2018 4:33 PM CDT Reason for Visit: Locomotive Electrician Rounds Marlen/Yarsani: Unknown Encounter: Patient stated she didn't really need a visit from the Locomotive Electrician, she just needed to get her "plumbing fixed." Patient stated she was receiving good care, but was more that ready to be on her way to a resolution to her health issues. Locomotive Electrician stated she hoped she had resolution very soon, and took her leave. The spiritual care team is available as needed, 24/7, through the campus switchboard ([phone]). For immediate response, please page [phone]. For a response within 24 hours, please submit an order in O2 for a compliance mgr consult or call the administrative voicemail at [phone]. * Marci Cha RN - 07/03/2018 2:59 [...] with primary team Marisol Arias MD Pager [phone] Subjective Aracelis Espinal is a 67 y.o. [...] Harjit Wellington M.D. PGY-3 Please page urology teamcenter solution architect with questions SUBJECTIVE: Overnight events: No acute [...] depression, HLD with recent prolonged admission to [facility] in [place] for acute renal failure. She was found [...] discharge NOTE Patient Name: Aracelis Espinal Room/Bed: AY0041/02 Admitting Diagnosis: Obstructive uropathy Bilateral leg edema Past Medical History: Diagnosis Date Anemia Anxiety disorder Cataract Colon polyps Depression Dyslipidemia Thyroid disorder Ulcer of the stomach and intestine 67 y.o. F with history of anxiety, depression, HLD with recent prolonged admission to [facility] in [place] for acute renal failure. 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 Vision Current Vision: (hx [...] OT needs identified[place]: [place] [id number] Date: 07/03/2018 * Estela Ghosh, - 07/03/2018 7:57 AM CDT Formatting of this note may be different from the original. General Progress Note Name: Aracelis Espinal Today's Date: 07/03/2018 Admission Date: 07/01/2018 LOS: 2 days Assessment/Plan: Active Problems: Obstructive uropathy Bilateral leg edema Ms Espinal is a 67 y.o. F with history of anxiety, depression, HLD with recent prolonged admission to [facility] in [place] for acute renal failure. She was found [...] renal failure by PCP and sent to [facility], was admitted for about 3 weeks. [...] additional dose of IV lasix today. Continue STRAIGHTENING PRESS OPERATOR lasix. > Discussed with Dr Arias, concern [...] Pertinent radiology reviewed. Estela Ghosh DO Pager [phone] * Marbella Espana RN - 07/03/2018 5:52 [...] depression, HLD with recent prolonged admission to [facility] in [place] for acute renal failure. She was found [...] renal failure by PCP and sent to [facility], was admitted for about 3 weeks. [...] lasix 40mg x1 and assess response. Continue STRAIGHTENING PRESS OPERATOR lasix tomorrow > Urine culture negative, pyuria [...] Pertinent radiology reviewed. Estela Ghosh DO Pager [phone] * Cheikh Swain RN - 07/02/2018 3:14 [...] old obese female patient who presented to [facility] in [place] on 06/03/2018 with complaints of fatigue, decreased [...] DVT In bilateral lower extremity. 35 minutes sra-gveb-is-face time was spent reviewing outside medical record. in this encounter H&P Notes * Pearl Villa, MSN,PATROL COMMUNITY SERVICE OFFICER - 07/04/2018 7:31 AM CDT Formatting of [...] previous H&P performed on 07/03/18. Pearl Villa, MSN,PATROL COMMUNITY SERVICE OFFICER Pager [phone] * Jessica Baptiste APRN - 07/02/2018 10:50 [...] the previous H&P performed on 07/02/18. Jessica Baptiset APRN Pager [phone] * Jennifer Esposito MD - 07/01/2018 10:12 PM CDT Formatting of this note may be different from the original. Admission History and Physical Examination Name: Aracelis Espinal Admission Date: 07/01/2018 Assessment/Plan: Active Problems: Obstructive uropathy Bilateral leg edema 67 y.o. female with past medical history significant for anxiety, depression and dyslipidemia who had a recent prolonged hospitalization at [facility] in [place] where she presented with nausea vomiting and [...] who had a recent prolonged hospitalization at [facility] in [place] where she presented with nausea vomiting and [...] Range Color,UA YELLOW Turbidity,UA CLEAR CLEAR-CLEAR Specific [place]-Urine 1.010 1.003 - 1.035 pH,UA 6.0 5.0 [...] 07/01/18 2:31 PM Result Value Ref Range Zqqyorac-B-QQY 0.00 0.00 - 0.05 NG/ML BNP POC [...] 07/01/2018 4:18 PM. JENNIFER ESPOSITO MD Pager [phone] in this encounter Consult Notes * Deidre [...] D deficiency, and recent prolonged admission at [facility] for MEE likely due to an obstructive [...] and denies any concern for wt loss STRAIGHTENING PRESS OPERATOR. No GI distress. Still with 2+ pitting [...] flush catheter today Marisol Arias MD Pager [phone] History Reason for Consult: MEE HPI: Aracelis [...] once nephrostomy tubes in place Please call teamcenter solution architect urology resident with questions. Discussed and formulated plan of care with staff surgeon, Dr. Moseley. Fany Andrea MD Urology Resident __ HPI: Aracelis Espinal is a 67 y.o. female with history of bilateral hydronephrosis identified when she presented to [facility] 06/03/18 with Cr 9.3 complaining of [...] AVS updated with contact information of [facility]. ? Medication Needs Medication Needs: Medication Prior-Auth -NCM notified that patient will discharge to home with Eliquis. Pt already provided with a 30 day free card. NCM notified [facility] to see if prescription will need a PA. PA not needed. Pt's insurance will cover medication. ? Financial ? Legal ? Other Disposition ? Expected Discharge Date Expected Discharge Date: 07/07/18 ? Transportation Does the patient need discharge transport arranged?: No Transportation Name, Phone and Availability #1: sister and Win are living in [facility] Does the patient use Medicaid Transportation?: No ? Next Level of Care (Acute Psych discharges only) ? Discharge Disposition Durable Medical Equipment No service has been selected for the patient. [facility] Destination No service has been selected for the patient. Home Care Service Request Status Selected Specialties Address Phone Number Fax Number [facility] [address] [facility] [address] [phone] Dialysis/Infusion No service has been selected for the patient. Roxi Decker MSN, dock manager [phone] Pager *[phone] * Case Mgmt DC Plan - Juan Panchal - 07/05/2018 3:11 PM CDT Formatting of this note may be different from the original. Case Management Progress Note NAME:Aracelis Espinal :1949 AGE: 67 y.o. ADMISSION DATE: 07/01/2018 DAYS ADMITTED: LOS: 4 days Todays Date: 07/05/2018 Plan Anticipate DC home with family support, and resumption of [facility]. Nurse Shipyard Painting Supervisor Weekend Needs Instructions for CM W/E Staff: Please notify [facility] of DC, and have Dr. Reeves sign orders and send signed orders, updated clinical information and AVS to [facility]. Teaching Needs Prior to DC: Nephrostomy tubes [...] Home Health Anticipate DC home with [facility], discussed with intake 07/04/2018 ? Medication Needs Medication Needs: Prescription Assistance Program NCM provide Eliquis 30 day free copay card. ? Financial ? Legal ? Other Disposition ? Expected Discharge Date Expected Discharge Date: 07/07/18 ? Transportation Does the patient need discharge transport arranged?: No Transportation Name, Phone and Availability #1: sister and Win are living in [facility] Does the patient use Medicaid Transportation?: No ? Next Level of Care (Acute Psych discharges only) ? Discharge Disposition Durable Medical Equipment No service has been selected for the patient. Destination No service has been selected for the patient. Home Care Service Request Status Selected Specialties Address Phone Number Fax Number [facility] Selected Home Health Services [address] [facility] [address] [facility] Dialysis/Infusion No service has been selected for the patient. Juan Panchal RN BSN Integrated Nurse Shipyard Painting Supervisor [phone]/ [phone] * Procedures (Immed Post or Bedside) - [...] Well Post-Procedure Condition: stable KATLIN Still Pager [phone] * Procedures (Immed Post or Bedside) - [...] Post-Procedure Condition: stable Jed Dsouza MD Pager [phone] * Case Mgmt DC Plan - Juan Panchal - 07/03/2018 4:29 PM CDT Formatting of this note may be different from the original. Case Management Progress Note NAME:Aracelis Espinal :1949 AGE: 67 y.o. ADMISSION DATE: 07/01/2018 DAYS ADMITTED: LOS: 2 days Todays Date: 07/03/2018 Plan Anticipate DC home with resumption of [facility]. Interventions ? Support ? Info or Referral ? Discharge Planning Discharge Planning: Home Health NCM contact [facility] pediatricianMaggy. Confirm patient is current with RN , PT/OT services, and Dr. Garcia to follow. ? Medication Needs ? Financial ? Legal ? Other Disposition ? Expected Discharge Date Expected Discharge Date: 07/05/18 ? Transportation Does the patient need discharge transport arranged?: No Transportation Name, Phone and Availability #1: sister and Win are living in [facility] Does the patient use Medicaid Transportation?: No ? Next Level of Care (Acute Psych discharges only) ? Discharge Disposition Durable Medical Equipment No service has been selected for the patient. Destination No service has been selected for the patient. Home Care Service Request Status Selected Specialties Address Phone Number Fax Number [facility] Selected Home Health Services [address] [facility] [address] [phone] Dialysis/Infusion No service has been selected for the patient. Juan Panchal PHILOSOPHY PROFESSOR Integrated Nurse Shipyard Painting Supervisor [phone]/ [phone] * Procedures (Immed Post or Bedside) - [...] via family trasnport with resumption of [facility] when medically stable. Plan: CM Assessment, Assist PRN with SW/NCM Services, Discharge Planning for Home Anticipated SW met with pt who confirms after being in [facility] for [facility] weeks, pt DC on 06/27 with L neph tube and [facility] . Pt denies any concerns with managing Neph tube and drain at home. Pt reports HH was only able to come to home once STRAIGHTENING PRESS OPERATOR but report they were helpful and would like HH resumed at [place]. Pt denies any concern for DC home with R and L neph tubes. SW notified NCM need for resumption of [facility] at [place]. Pt consulted-recommending home with . PLan for Urology to remove stents at bedside today. Renal following. Patient Address/Phone [address] [phone] (home) Emergency Contact Extended Emergency Contact Information Primary Emergency Contact: Kimber Perez [facility] Relation: Sister Healthcare Directive Healthcare Directive: Yes, patient has a healthcare directive Type of Healthcare Directive: Durable power of litigation attorney for healthcare Location of Healthcare Directive: Current and verified in document scanning system Would patient like to fill out a (a new) Healthcare Directive?: N/A Psych Advance Directive (Psych unit only): No, patient does not have a Psych Advance Directive Transportation Does the patient need discharge transport arranged?: No Transportation Name, Phone and Availability #1: sister and Win are living in [facility] Does the patient use Medicaid Transportation?: [...] ? PCP Jeny Garcia, , ? Pharmacy [facility] [address] [place] [phone] ? Durable Medical Equipment Durable Medical Equipment at home: None ? Home Health Receiving home health: Yes Agency name: current with chinmay willis to manage L neph tube and dressing changes STRAIGHTENING PRESS OPERATOR ? Hemodialysis or Peritoneal Dialysis Undergoing hemodialysis or peritoneal dialysis: No ? Tube/Enteral Feeds Receive tube/enteral feeds: No ? Infusion Receive infusions: No ? Private Duty Private duty help used: No ? Home and Community Based Services Home and community based services: No ? [facility] Shiv[facility] Newman White: No ? Hospice Hospice: No ? Outpatient Therapy PT: No OT: No IT PROGRAMMER: No ? [facility] Facility/Long Term SNF: No NH: No ? Inpatient Rehab IPR: No ? Long-Term Acute Care Hospital LTACH: No ? Acute Hospital Stay Acute Hospital Stay: Yes Was patient's stay within the last 30 days?: Yes When did patient receive care?: [facility] on 06/27 Readmission Code Group: 5. [...] Post-Procedure Condition: stable Jed Dsouza MD Pager [phone] * Case Mgmt DC Plan - Xiomara Bragg - 07/02/2018 11:10 AM CDT Plan: DCP Ongoing: SW anticipates pt to DC home with possible HH penidng needs at [place]. Intervention: Sw attempted to meet with pt [...] to MP E, if questions please page [phone] * ED Notes - Xiomara Langley RN - 07/01/2018 7:24 PM CDT Report given to ELADIO Tyson. * ED Notes - Mary Ann Monroe RN - 07/01/2018 7:08 PM CDT [id number]. Ready. Please call Chelsie @ [phone] for report * ED Notes - Xiomara [...] (06/03/18), Left nephrostomy tube in place(06/19/18) at [facility]. Patient reports having worsening edema from [...] Range Color,UA YELLOW Turbidity,UA CLEAR CLEAR-CLEAR Specific [place]-Urine 1.010 1.003 - 1.035 pH,UA 6.0 5.0 [...] 5 POC TROPONIN Result Value Ref Range Osyxgvfh-A-YML 0.00 0.00 - 0.05 NG/ML BNP POC [...] Pt reports she spent three weeks at [facility] in [place] with renal failure and received dialysis. Reports [...] Address City/State/Zipcode Phone Number MAIN LAB [address] [place] [address] * CBC AND DIFF (07/08/2018 5:46 AM) [...] MAIN LAB Specimen Blood Performing Organization Address City/[facility]/Zipcode Phone Number [facility] [address] [place] [address] * COMPREHENSIVE METABOLIC PANEL (07/07/2018 6:06 AM) [...] for questions. Specimen Blood Performing Organization Address City/[facility]/Zipcode Phone Number [facility] [address] [place] [address] * CBC AND DIFF (07/07/2018 6:06 AM) [...] City/State/Zipcode Phone Number [facility] [address] [place] [address] * COMPREHENSIVE METABOLIC PANEL (07/06/2018 4:13 AM) [...] City/State/Zipcode Phone Number [facility] [address] [place] [address] * CBC AND DIFF (07/06/2018 4:13 AM) [...] Phone Number MAIN LAB [address] [place] [address] * COMPREHENSIVE METABOLIC PANEL (07/05/2018 5:52 AM) [...] Phone Number MAIN LAB [address] [place] [address] * CBC AND DIFF (07/05/2018 5:52 AM) [...] City/State/Zipcode Phone Number [facility] [address] [place] [address] * IR CENTRAL VENOUS CATHETER (07/04/2018 4:45 [...] needle. Access was maintained with a 6 Ghanaian sheath. A 5 Ghanaian pigtail catheter was advanced over a 0.035 [...] needle. Access was maintained with a 6 Ghanaian sheath. A 5 Ghanaian pigtail catheter was advanced over a 0.035 [...] for questions. Specimen Blood Performing Organization Address City/[facility]/Zipcode Phone Number MAIN LAB [address] [place] [address] * CBC AND DIFF (07/04/2018 6:03 AM) [...] MAIN LAB Specimen Blood Performing Organization Address City/[facility]/Zipcode Phone Number [facility] [address] [place] [address] * PROTEIN/CR RATIO,UR RAN (07/03/2018 2:00 PM) Protein, Random 10 MG/DL [facility] Creatinine, Random 32 MG/DL [facility] Protein/CR ratio 0.3 [facility] Specimen Urine - Urine Performing Organization Address [facility]/Zipcode Phone Number MAIN LAB [address] [place] [address] * COMPREHENSIVE METABOLIC PANEL (07/03/2018 6:43 AM) [...] for questions. Specimen Blood Performing Organization Address City/[facility]/Zipcode Phone Number [facility] [address] [place] [phone] * CBC AND DIFF (07/03/2018 6:43 AM) [...] MAIN LAB Specimen Blood Performing Organization Address City/[facility] Phone Number [facility] [address] [place] [phone] * IRON + BINDING CAPACITY + %SAT+ FERRITIN (07/03/2018 6:43 AM) Iron 38 (L) 50 - 160 MCG/DL [facility] Iron Binding-TIBC 285 270 - 380 MCG/DL [facility] % Saturation 13 (L) 28 - 42 % [facility] Ferritin 590 (H) 10 - 200 NG/ML [facility] Specimen Blood Performing Organization Address City/[facility]/Zipcode Phone Number [facility] [address] [place] [address] * IR ASPIRATION/DRAIN (07/02/2018 12:13 PM) Impressions [...] set was then removed and an 8 Ghanaian pigtail catheter was advanced into the renal pelvis. The [place] loop was formed. Contrast was instilled into [...] set was then removed and an 8 Ghanaian pigtail catheter was advanced into the renal pelvis. The [place] loop was formed. Contrast was instilled into [...] OTHER OUTSIDE LAB S' Cardiology Ultrasound Siemens [id number] OTHER OUTSIDE LAB Machine Left Ventricle Mass [...] systolic PA pressure=18 mmHg Performing Organization Address City/[facility]/Zipcode Phone Number OTHER OUTSIDE LAB * COMPREHENSIVE [...] Number [facility] [address] [place] [address] * CBC AND DIFF (07/02/2018 6:18 AM) [...] MAIN LAB Specimen Blood Performing Organization Address City/[facility] Phone Number MAIN LAB [address] [place] [address] * TSH WITH FREE T4 REFLEX (07/02/2018 6:18 AM) TSH 2.360 0.35 - 5.00 MCU/ML MAIN LAB Specimen Blood Performing Organization Address [facility] Phone Number MAIN LAB [address] [place] [address] * BNP (B-TYPE NATRIURETIC PEPTI) (07/02/2018 6:18 AM) B Type Natriuretic 71.0 0 - 100 PG/ML MAIN LAB Peptide Specimen Blood Performing Organization Address [facility] Phone Number MAIN LAB [address] [place] [address] * PHOSPHORUS (07/02/2018 6:18 AM) Phosphorus 4.9 (H) 2.0 - 4.0 MG/DL MAIN LAB Specimen Blood Performing Organization Address [facility] Phone Number MAIN LAB [address] [place] [address] * MAGNESIUM (07/02/2018 6:18 AM) Magnesium 2.0 1.6 - 2.6 mg/dL [facility] Specimen Blood Performing Organization Address City/[facility]/Zipcode Phone Number MAIN LAB [address] [place] [address] * CHEST SINGLE VIEW (07/02/2018 6:07 AM) [...] on 07/01/2018 4:18 PM. Performing Organization Address [facility] Phone Number RAD RESULTS * BNP POC ER (07/01/2018 2:31 PM) BNP POC 123.0 (H) 0 - 100 PG/ML [facility] Performing Organization Address [facility] Phone Number MAIN LAB [address] [place] [address] * POC TROPONIN (07/01/2018 2:31 PM) Qqiciopv-Z-CWE 0.00 0.00 - 0.05 NG/ML [facility] Performing Organization Address [facility] Phone Number [facility] [address] [place] [address] * CULTURE-URINE W/SENSITIVITY (07/01/2018 2:30 PM) Battery Name URINE CULTURE [facility] Specimen Description URINE [facility] Special Requests NONE [facility] Culture NO GROWTH [facility] Report Status FINAL [facility] 07/02/2018 Specimen Urine Performing Organization Address [facility] Phone Number MAIN LAB [address] [place] [address] * UA REFLEX CULTURE LABEL (07/01/2018 2:30 PM) UA Reflex Culture LAB LABEL [facility] Specimen Urine Performing Organization Address [facility] Phone Number [facility] [address] [place] [address] * URINALYSIS MICROSCOPIC REFLEX TO CULTURE (07/01/2018 [...] MAIN LAB Specimen Urine Performing Organization Address [facility] Phone Number [facility] [address] [place] [address] * URINALYSIS DIPSTICK REFLEX TO CULTURE (07/01/2018 2:30 PM) Color,UA YELLOW [facility] Turbidity,UA CLEAR CLEAR-CLEAR [facility] Specific [place]-Urine 1.010 1.003 - 1.035 [facility] [...] MAIN LAB Specimen Urine Performing Organization Address [facility] Phone Number MAIN LAB [address] [place] [address] * MAGNESIUM (07/01/2018 1:35 PM) Magnesium 2.0 1.6 - 2.6 mg/dL [facility] Specimen Blood Performing Organization Address [facility]/[employer] Phone Number [facility] [address] [place] [address] * COMPREHENSIVE METABOLIC PANEL (07/01/2018 1:35 PM) [...] Address City/State/Zipcode Phone Number MAIN LAB [address] [place] [address] * CBC AND DIFF (07/01/2018 1:35 PM) [...] Address City/State/Zipcode Phone Number [facility] [address] [place] [address] in this encounter Visit Diagnoses Diagnosis Hydronephrosis, unspecified hydronephrosis type - Primary Obstructive uropathy Urinary obstruction, unspecified Bilateral leg edema Edema Other hypervolemia Acute deep vein thrombosis (DVT) of distal end of right lower extremity ([facility]) Anxiety Anxiety state, unspecified Major depressive disorder with single episode, in remission ([facility]) Gastroesophageal reflux disease without esophagitis Esophageal reflux Hypothyroidism due to acquired atrophy of thyroid Vitamin D deficiency Unspecified vitamin D deficiency MEE (acute kidney injury) ([facility]) Acute kidney failure, unspecified Pyuria Other nonspecific [...] CDT 50 mcg, Intravenous, ONCE, 1 dose, [facility] 07/04/18 at 0745 fentaNYL citrate PF [...] Intravenous, ONCE, 1 Bag 09:23 CDT dose, [facility] 07/04/18 at 0745, Give post procedure in this encounter
--- OUTSIDE RECORDS SUMMARY | 2018-08-30 17:00 | XMS REPORT | Encounter Summary ---
Author Author [facility] Organization [facility] Address Unknown Phone Unavailable Care Team Providers Care Artists' Booking Representative Name Role Phone PCP Unavailable Encounter Details Date Type Department Care Team Description 06/19/2018 Hospital [facility] Encounter Hospital Radiology Main Hospital 2nd fl [address] [place], [place] [phone] Social History Tobacco Use Types Packs/Day Years [...] Name Priority Date/Time Associated Diagnosis Comments [facility]/19/2018 Diagnosis unknown [...]
--- OUTSIDE RECORDS SUMMARY | 2018-08-30 17:01 | XMS REPORT | Encounter Summary ---
Author Author [facility] Organization [facility] Address Unknown Phone Unavailable Care Team Providers Care Lead Investigator Name Role Phone PCP Unavailable Encounter Details Date Type Department Care Team Description 06/05/2018 Hospital [facility] Encounter Hospital Radiology Main Hospital 2nd fl [address] [place], [place] [phone] Social History Tobacco Use Types Packs/Day Years [...]
--- OUTSIDE RECORDS SUMMARY | 2018-08-30 17:01 | XMS REPORT | Continuity of Care Document ---
Author Author [facility] Organization [facility] Address Unknown Phone Unavailable Allergies Active Description Code Type Severity Reaction Onset Reported/Identified Relationship to Patient Clinical Status Yes codeine [id number] Drug Allergy Unknown N/V 08/14/2018 Medications There [...] 02/01/2018 PAYTON GILLESPIE MD Ot Z79.899 OTHER JAIL (CURRENT) DRUG THERAPY 02/04/2018 PAYTON GILLESPIE MD Ot E07.9 DISORDER OF THYROID, UNSPECIFIED 02/04/2018 PAYTON GILLESPIE MD Ot F17.210 NICOTINE DEPENDENCE, CIGARETTES, UNCOMPL 02/04/2018 VERNA MOROCHO, PAYTON Johnson Ot F32.9 MAJOR DEPRESSIVE DISORDER, SINGLE EPISOD 02/04/2018 VERNA MOROCHO, PAYTON L Ot H26.9 UNSPECIFIED CATARACT 02/04/2018 VERNA MOROCHO, PAYTON L Ot R51 HEADACHE 02/04/2018 VERNA MOROCHO, PAYTON L Ot Z79.899 OTHER JAIL (CURRENT) DRUG THERAPY 02/04/2018 VERNA MOROCHO, PAYTON Johnson Ot E07.9 DISORDER OF THYROID, UNSPECIFIED 02/04/2018 VERNA MOROCHO, PAYTON L Ot F17.210 NICOTINE DEPENDENCE, CIGARETTES, UNCOMPL 02/04/2018 VERNA MOROCHO, PAYTON Johnson Ot F32.9 MAJOR DEPRESSIVE DISORDER, SINGLE EPISOD 02/04/2018 VERNA MOROCHO, PAYTON Johnson Ot H26.9 UNSPECIFIED CATARACT 02/04/2018 PAYTON GILLESPIE MD L Ot R51 HEADACHE 02/04/2018 VERNA MOROCHO, PAYTON L Ot Z79.899 OTHER JAIL (CURRENT) DRUG THERAPY 05/31/2018 TYLER CLANCY MD Ot 793.89 OTH (ABN) FINDINGS ON RADIOLOGICAL EXAMI 05/31/2018 TYLER CLACNY MD Ot V76.12 OTH SCREEN MAMMO-MALIGN NEOPLASM OF JAMES 05/31/2018 TYLER CLANCY MD Ot 793.89 OTH (ABN) FINDINGS ON RADIOLOGICAL EXAMI 05/31/2018 TYLER CLANCY MD Ot 793.80 UNSPEC ABNORMAL MAMMOGRAM 05/31/2018 JAVIER DISLA MD Ot Z12.31 ENCNTR SCREEN MAMMOGRAM FOR MALIGNANT NE 05/31/2018 JAVIER DISLA MD Ot Z12.31 ENCNTR SCREEN MAMMOGRAM FOR MALIGNANT NE 05/31/2018 VASHTI DAVILA SUBMARINE CABLE EQUIPMENT TECHNICIAN Ot Z12.31 ENCNTR SCREEN MAMMOGRAM FOR MALIGNANT NE 06/03/2018 VASHTI DAVILA SUBMARINE CABLE EQUIPMENT TECHNICIAN Ot K59.00 CONSTIPATION, UNSPECIFIED 07/11/2018 VASHTI DAVILA SUBMARINE CABLE EQUIPMENT TECHNICIAN Ot K59.00 CONSTIPATION, UNSPECIFIED 08/15/2018 TYLER CLANCY [...] MAMMOGRAM FOR MALIGNANT NE 08/15/2018 VASHTI DAVILA SUBMARINE CABLE EQUIPMENT TECHNICIAN Ot Z12.31 ENCNTR SCREEN MAMMOGRAM FOR MALIGNANT NE 08/15/2018 VASHTI DAVILA SUBMARINE CABLE EQUIPMENT TECHNICIAN Ot K59.00 CONSTIPATION, UNSPECIFIED 08/15/2018 SHAMIR DRISCOLL SENIOR PYTHON DEVELOPER Ot E86.0 DEHYDRATION 08/15/2018 SHAMIR DRISCOLL SENIOR PYTHON DEVELOPER Ot R11.2 NAUSEA WITH VOMITING, UNSPECIFIED 08/15/2018 DEIDRE MOROCHO, HERMAN Rubio Ot E03.9 HYPOTHYROIDISM, UNSPECIFIED 08/15/2018 DEIDRE MOROCHO, HERMAN Rubio Ot K20.9 ESOPHAGITIS, UNSPECIFIED 08/15/2018 DEIDRE MOROCHO, HERMAN Rubio Ot K29.70 GASTRITIS, UNSPECIFIED, WITHOUT BLEEDING 08/15/2018 HERMAN JIANG MD Ot K29.80 DUODENITIS WITHOUT BLEEDING 08/15/2018 DEIDRE MOROCHO, HERMAN Rubio Ot Z79.899 OTHER ENGINEERING CLERK (CURRENT) DRUG THERAPY 08/15/2018 HERMAN JIANG MD Ot E03.9 HYPOTHYROIDISM, UNSPECIFIED 08/15/2018 HERMAN JIANG MD Ot K20.9 ESOPHAGITIS, UNSPECIFIED 08/15/2018 DEIDRE MOROCHO, HERMAN Rubio Ot K29.70 GASTRITIS, UNSPECIFIED, WITHOUT BLEEDING 08/15/2018 HERMAN JIANG MD Ot K29.80 DUODENITIS WITHOUT BLEEDING 08/15/2018 HERMAN JIANG MD Ot Z79.899 OTHER ENGINEERING CLERK (CURRENT) DRUG THERAPY 08/16/2018 OMERO MOROCHO, EVANGELINA [...] SHOCK 08/16/2018 EVANGELINA JAMIL MD, Ot Z79.01 JAIL (CURRENT) USE OF ANTICOAGULANT 08/16/2018 EVANGELINA JAMIL MD, Ot Z88.5 ALLERGY STATUS TO NARCOTIC AGENT STATUS 08/16/2018 EVANGELINA JAMIL MD, Ot Z93.6 OTHER ARTIFICIAL OPENINGS OF URINARY TRA 08/19/2018 DEIDRE MOROCHO, HERMAN Rubio Ot E03.9 HYPOTHYROIDISM, UNSPECIFIED 08/19/2018 HERMAN JIANG MD, Ot K20.9 ESOPHAGITIS, UNSPECIFIED 08/19/2018 HERMAN JIANG MD, Ot K29.70 GASTRITIS, UNSPECIFIED, WITHOUT BLEEDING 08/19/2018 HERMAN JIANG MD, Ot K29.80 DUODENITIS WITHOUT BLEEDING 08/19/2018 HERMAN JIANG MD, Ot Z79.899 OTHER ENGINEERING CLERK (CURRENT) DRUG THERAPY Procedures There is no [...] OF GROWTH Isolated NR Bacterial blood culture [id number] [facility] RML SENSITIVITY MAIN LAB - 08/14/18 17:36 [...] culture - 08/14/18 23:40 Bacterial urine culture [id number] NRG COLONY COUNT >100,000/ML NRG FTX;REPORTABLE SENSITIVITY REPORT SENT BY [facility] FREE TEXT ENTRY 2 08[facility] - 08/14/18 23:40 Gentamicin susceptibility [...] and clavulanate potassium susc ALDO > NRG [facility] Sensitivity Panel - 08/14/18 23:40 Vancomycin susceptibility [...] Status Pt. Type Provider Facility Loc./Unit Complaint [id number] 08/14/2018 17:08:00 08/15/2018 02:00:00 DIS Outpatient EVANGELINA JAMIL MD [facility] ER UTI,SEPTIC SHOCK [id number] 08/13/2018 11:34:00 08/13/2018 14:10:00 DIS Outpatient HERMAN JIANG MD [facility] ENDO NAUSEA/VOMITING/ GERD [id number] 08/12/2018 10:00:00 08/12/2018 23:59:59 CLS Outpatient SHAMIR DRISCOLL SENIOR PYTHON DEVELOPER [facility] N,V,DEHYDRATION [id number] 05/31/2018 07:42:00 05/31/2018 23:59:59 CLS Outpatient VASHTI DAVILA APRN [facility] RAD CONSTIPATION [id number] 02/01/2018 11:22:00 02/01/2018 13:10:00 DIS Outpatient [facility] [id number] 01/28/2018 10:30:00 01/28/2018 11:06:00 DIS Outpatient PAYTON GILLESPIE MD [facility] PREOP CATARACT [id number] 10/01/2017 07:01:00 10/01/2017 23:59:59 CLS Outpatient VASHTI DAVILA SUBMARINE CABLE EQUIPMENT TECHNICIAN [facility] RAD SCREENING [id number] 10/04/2016 08:41:00 10/04/2016 23:59:59 CLS Outpatient JAVIER DISLA MD [facility] RAD SCREENING [id number] 09/20/2015 11:06:00 09/20/2015 23:59:59 CLS Outpatient JAVIER DISLA MD [facility] RAD SCREENING [id number] 09/29/2014 07:41:00 09/29/2014 23:59:59 CLS Outpatient TYLER CLANCY MD [facility] RAD ABN MAMMO [id number] 09/29/2013 07:30:00 09/29/2013 23:59:59 CLS Outpatient TYLER CLANCY MD [facility] RAD ABN MAMMO [id number] 09/11/2013 06:54:00 09/11/2013 23:59:59 CLS Outpatient TYLER CLANCY MD [facility] RAD SCREENING [id number] 09/29/2014 07:45:00 Document Registration [id number] 09/29/2014 07:45:00 Document Registration [id number] 09/29/2014 07:45:00 Document Registration [id number] 09/29/2014 07:45:00 Document Registration [id number] 09/10/2012 08:25:00 Document Registration [id number] 03/07/2012 05:47:00 Document Registration [id number] 03/04/2012 14:23:00 Document Registration [id number] 04/15/2010 09:45:00 Document Registration [id number] 05/26/2009 14:23:00 Document Registration [id number] 04/28/2009 14:02:00 Document Registration [id number] 09/10/2017 13:35:31 09/10/2017 23:59:59 CLS Outpatient
--- OUTSIDE RECORDS SUMMARY | 2018-08-30 17:01 | XMS REPORT | Encounter Summary ---
Author Author [facility] Organization [facility] Address Unknown Phone Unavailable Care Team Providers Care Personnel Security Assistant Name Role Phone PCP Unavailable Encounter Details Date Type Department Care Team Description 06/04/2018 Hospital [facility] Encounter Hospital Radiology Main Hospital 2nd fl [address] [place], [place] [phone] Social History Tobacco Use Types Packs/Day Years [...] procedure are in the results section. [facility] Routine 06/04/2018 Diagnosis unknown Results for this 12:00 AM CDT procedure are in the results section. in this encounter Results * ECG-SCAN (07/01/2018 2:40 PM) Narrative Performed At Ordered by an unspecified provider. * IR [facility] (06/04/2018) Narrative Performed At This order has been auto finalized and does not contain a result. in this encounter Visit Diagnoses Diagnosis Diagnosis unknown Other unknown and unspecified cause of morbidity or mortality
--- OUTSIDE RECORDS SUMMARY | 2018-08-30 17:01 | XMS REPORT | Encounter Summary ---
Author Author [facility] Organization [facility] Address Unknown Phone Unavailable Care Team Providers Care Tapper Operator Name Role Phone PCP Unavailable Encounter Details Date Type Department Care Team Description 06/10/2018 Hospital [facility] Encounter Hospital Radiology Main Hospital 2nd fl [address] [place], [place] [id number] Social History Tobacco Use Types Packs/Day Years [...]
--- OUTSIDE RECORDS SUMMARY | 2018-08-30 17:01 | XMS REPORT | Encounter Summary ---
Author Author [facility] Organization [facility] Address Unknown Phone Unavailable Care Team Providers Care Vice President Education Name Role Phone PCP Unavailable Encounter Details Date Type Department Care Team Description 06/03/2018 Hospital [facility] Encounter Hospital Radiology Main Hospital 2nd fl [address] [place], [place] [phone] Social History Tobacco Use Types Packs/Day Years [...]
--- NOTE | 2018-08-30 17:09 | Diagnostic Imaging Report ---
PROCEDURE: US Hepatic (Liver). TECHNIQUE: Multiple real-time grayscale images were obtained over the right upper quadrant in various projections. INDICATION: Rectal bleeding. FINDINGS: Liver is normal in size without focal lesions. Gallbladder is surgically absent. There is biliary ductal dilatation with the common bile duct measuring up to 1.1 cm. Pancreas is not well seen due to bowel gas. Right kidney is normal in appearance. There is a small amount of perihepatic ascites. IMPRESSION: 1. Prominence of the common bile duct up to 1.1 cm. This may be related to patient's age and previous cholecystectomy although choledocholithiasis cannot be entirely excluded. Recommend clinical correlation. 2. Small amount of perihepatic ascites. Dictated by: Dictated on workstation # [id number]
--- NOTE | 2018-08-30 17:48 | Pulmonary Consultation ---
History of Present Illness History of Present Illness Date of Consultation 08/30/18 17:43 Time Seen by Provider: 17:43 Date of Admission History of Present Illness Allergies and Home Medications Allergies Coded Allergies: codeine (Unverified Allergy, Unknown, N/V, 08/14/18) Home Medications Apixaban 5 Mg Tablet, 5 MG PO BID, (Reported) Docusate Sodium 100 Mg Tablet, 100 MG PO DAILY, (Reported) Levothyroxine Sodium 50 Mcg Tablet, 50 MCG PO DAILY, (Reported) Pantoprazole Sodium 40 Mg Tablet.dr, 40 MG PO DAILY, (Reported) [water pill] , 1 TAB PO DAILY, (Reported) Past Dggxjyl-Slfgnl-Khrrgq Hx Patient Social History Alcohol Use: Denies Use Recreational Drug Use: No Smoking Status: Current Everyday Smoker Type Used: Cigarettes Recent Foreign Travel: No Contact w/Someone Who Travel: No Recent Infectious Disease Expo: No Recent Hopitalizations: Yes (IN JUN 2018) Immunizations Up To Date Date of Pneumonia Vaccine: Sep 06, 2010 Past Medical History Surgeries: Yes (BILAT UREOSTOMYS ) Gallbladder Respiratory: No Cardiac: No Neurological: No Reproductive Disorders: No Genitourinary: Yes (BILAT UROSTOMYS) Gastrointestinal: Yes (HX OF ULCER 5 YRS AGO) Musculoskeletal: No Endocrine: Yes Hypothyroidsim Psychosocial: Yes Depression Blood Disorders: No Sepsis Event Evaluation Height, Weight, BMI Height: 5'5.00" Weight: 165lbs. 0.0oz. 74.636392ki; 26.6 BMI Method:Estimated Exam Exam Vital Signs Date Time Temp Pulse Resp B/P (MAP) Pulse Ox O2 Delivery O2 Flow Rate FiO2 08/30/18 14:03 98.3 101 18 69/51 (57) 99 Room Air Height & Weight Height: 5'5.00" Weight: 165lbs. 0.0oz. 74.645945xx; 26.6 BMI Method:Estimated Capillary Refill: Less Than 3 Seconds Results Lab Laboratory Tests 08/30/18 14:18 Assessment/Plan Assessment/Plan UTI with hx nephrostomy tubes -[place] cultures pending -Change Abx to merrem and vanco Anemia with rectal bleeding -Monitor H&H Acute on chronic renal failure -IVF and monitor Hypokalemia -replace Hypotensive with dehydration -IVF Elevated LFTs with elevated alk phos -Abdominal US reviewed -surgery is also following -Will continue to monitor Nausea -check amylase/Lipase small amount of ascites RUBY ARTEAGA DO Aug 30, 2018 17:48
[2018-08-30] MEDS ORDERED: PHARMACY TO DOSE IV SCH (18:30)
[2018-08-30] MEDS ORDERED: NS W/KCL 40 MEQ/L 1,000 ML IV ONE (18:34)
[2018-08-30] MEDS ORDERED: VANCOMYCIN 1,750 MG/NS 500 ML IVPB IV NR ×2 (18:35)
[2018-08-30] MEDS ORDERED: NS W/KCL 40 MEQ/L 1,000 ML IV SCH (18:45)
[2018-08-30 18:46] LABS: HEMOGLOBIN 8.9 G/DL (11.5-16.0); MEAN PLATELET VOLUME 8.2 FL (7.4-10.4); RED BLOOD COUNT 2.99 10^6/uL (4.35-5.85); RED CELL DISTRIBUTION WIDTH 16.8 % (10.0-14.5); WHITE BLOOD COUNT 10.5 10^3/uL (4.3-11.0)
[2018-08-30 19:26] LABS: CALCIUM 7.6 MG/DL (8.5-10.1); CREATININE SERUM 1.82 MG/DL (0.60-1.30); PHOSPHORUS 3.4 MG/DL (2.3-4.7); POTASSIUM 2.6 MMOL/L (3.6-5.0)
[2018-08-30 19:33] LABS: MAGNESIUM 0.9 MG/DL (1.8-2.4)
[2018-08-30] MEDS: LACTATED RINGERS 1,000 ML IV SCH (20:15)
[2018-08-30] MEDS: POTASSIUM CL 10MEQ/50ML IVPB 50 ML IV SCH ×4 (20:16→23:25)
[2018-08-30] MEDS: MAGNESIUM 1 GM/100 ML IVPB 100 ML IV SCH ×4 (20:16→23:25)
[2018-08-30] MEDS: MEROPENEM 500 MG in NS (IVPB) 100 ML IV SCH (21:31)
[2018-08-31] VITALS (24 sets, daily range): BP systolic 11–114; BP diastolic 59–87
[2018-08-31 00:09] LABS: HEMOGLOBIN 8.5 G/DL (11.5-16.0)
[2018-08-31] MEDS: POTASSIUM CL 10MEQ/50ML IVPB 50 ML IV SCH ×9 (00:29→09:35)
[2018-08-31] MEDS ORDERED: ACETAMINOPHEN 325 MG TABLET PO PRN (02:15)
[2018-08-31] MEDS: ONDANSETRON 4 MG/2 ML (SDV) Z0FRAN IVP PRN ×2 (02:26→06:04)
[2018-08-31 03:46] LABS: BASOPHILS % (AUTO) 0 % (0-10); EOSINOPHILS % (AUTO) 0 % (0-10); HEMATOCRIT 26 % (35-52); HEMOGLOBIN 8.7 G/DL (11.5-16.0); LYMPHOCYTES # (AUTO) 0.9 X 10^3 (1.0-4.0); LYMPHOCYTES % (AUTO) 9 % (12-44); MEAN CORPUSCULAR HEMOGLOBIN 29 PG (25-34); MEAN CORPUSCULAR HGB CONC 34 G/DL (32-36); MEAN CORPUSCULAR VOLUME 86 FL (80-99); MEAN PLATELET VOLUME 8.6 FL (7.4-10.4); MONOCYTES # (AUTO) 0.6 X 10^3 (0.0-1.0); MONOCYTES % (AUTO) 6 % (0-12); NEUTROPHILS # (AUTO) 8.2 X 10^3 (1.8-7.8); NEUTROPHILS % (AUTO) 84 % (42-75); PLATELET COUNT 291 10^3/uL (130-400); RED BLOOD COUNT 3.02 10^6/uL (4.35-5.85); RED CELL DISTRIBUTION WIDTH 17.1 % (10.0-14.5); WHITE BLOOD COUNT 9.7 10^3/uL (4.3-11.0)
[2018-08-31 04:11] LABS: CALCIUM 7.7 MG/DL (8.5-10.1); CREATININE SERUM 1.6 MG/DL (0.60-1.30); PHOSPHORUS 3.1 MG/DL (2.3-4.7); POTASSIUM 3.4 MMOL/L (3.6-5.0)
[2018-08-31] MEDS: LACTATED RINGERS 1,000 ML IV SCH ×7 (04:47→22:27)
[2018-08-31] MEDS: KCL 20 MEQ TAB (K-DUR) PO SCH (05:30)
[2018-08-31] MEDS: MAGNESIUM 1 GM/100 ML IVPB 100 ML IV SCH (05:30)
[2018-08-31] MEDS ORDERED: PROMETHAZINE INJ 25 MG/ML (PHENERGAN) AMP IVP PRN (05:45)
--- NOTE | 2018-08-31 05:46 | Pulmonary Progress Note ---
Subjective Time Seen by a Provider: 05:45 Subjective/Events-last exam Pt denies SOB or productive cough Sepsis Event Evaluation Height, Weight, BMI Height: 5'5.00" Weight: 165lbs. 0.0oz. 74.100347hw; 27.5 BMI Method:Estimated Focused Exam Lactate Level 08/30/18 14:18: Lactic Acid Level 1.36 Exam Exam Vital Signs Date Time Temp Pulse Resp B/P (MAP) Pulse Ox O2 Delivery O2 Flow Rate FiO2 08/31/18 04:00 98 Room Air 08/31/18 04:00 92 18 110/71 (84) 97 Room Air 08/31/18 03:42 98.9 08/31/18 03:00 88 20 106/87 (93) 97 Room Air 08/31/18 02:00 102 31 114/69 (84) 95 Room Air 08/31/18 01:37 86 08/31/18 01:36 99 08/31/18 01:00 88 25 104/59 (74) 99 Room Air 08/31/18 00:00 98 Room Air 08/31/18 00:00 92 17 106/61 (76) 96 Room Air 08/30/18 23:33 99.1 08/30/18 23:00 86 17 107/63 (78) 97 Room Air 08/30/18 22:00 92 15 102/66 (78) 93 Room Air 08/30/18 21:00 86 16 104/63 (77) 98 Room Air 08/30/18 20:12 98.8 86 12 99/65 (76) 99 Room Air 08/30/18 20:00 87 19 99/65 (76) 97 Room Air 08/30/18 20:00 98 Room Air 08/30/18 19:00 90 7 96/64 (75) 97 Room Air 08/30/18 18:13 100 Room Air 08/30/18 18:00 99 20 107/69 (82) 92 Room Air 08/30/18 18:00 97.3 08/30/18 17:35 90 18 107/62 (77) 96 Room Air 08/30/18 14:03 98.3 101 18 69/51 (57) 99 Room Air I & O 08/31/18 07:00 Intake Total 4945 ml Output Total 735 ml Balance 4210 ml Height & Weight Height: 5'5.00" Weight: 165lbs. 0.0oz. 74.047232ws; 27.5 BMI Method:Estimated General Appearance: No Apparent Distress, WD/WN, Other (Weak and ill appearing) HEENT: PERRL/EOMI, Normal ENT Inspection, Pharynx Normal Neck: Normal Inspection, Supple Respiratory: Lungs Clear, Normal Breath Sounds, No Accessory Muscle Use, No Respiratory Distress Cardiovascular: Regular Rate, Rhythm, No Edema, Normal Peripheral Pulses Capillary Refill: Less Than 3 Seconds Extremity: Normal Inspection, Pedal Edema (Marketed pitting lower extremity edema bilaterally) Neurologic/Psychiatric: Alert, Oriented x3, No Motor/Sensory Deficits, material loader II- XII Norm as Tested, Other (Depressed affect) Results Lab Laboratory Tests 08/30/18 14:18 08/30/18 18:40 08/31/18 00:00 08/31/18 03:09 Assessment/Plan Assessment/Plan UTI with hx nephrostomy tubes -Johnston cultures pending - merrem and vanco Anemia with rectal bleeding - resolved -Monitor H&H -Hb is stable Acute on chronic renal failure -IVF and monitor Hypokalemia- -replace Hypotensive with dehydration -IVF -give another liter bolus pancreatitis elevated LFTs with elevated alk phos -Abdominal US reviewed however only the liver was done. I am going to check pancreatic US -Check Ca19-9 -surgery is also following -Will continue to monitor Nausea -add Phenergan small amount of ascites RUBY ARTEAGA DO Aug 31, 2018 05:46
[2018-08-31] MEDS: MEROPENEM 500 MG in NS (IVPB) 100 ML IV SCH ×3 (05:47→21:43)
[2018-08-31 06:24] LABS: HEMOGLOBIN 8.3 G/DL (11.5-16.0)
[2018-08-31 08:02] LABS: BILIRUBIN,URINE 2+ (NEGATIVE)
[2018-08-31 08:03] LABS: BILIRUBIN,URINE 2+ (NEGATIVE)
[2018-08-31] MEDS ORDERED: MIDAZOLAM 2 MG/2 ML (VERSED) VIAL IM NR (09:37)
[2018-08-31] MEDS ORDERED: fentaNYL INJECTION 100 MCG/2 ML AMP ONE (09:45)
[2018-08-31] MEDS: fentaNYL INJECTION 100 MCG/2 ML AMP IVP PRN ×5 (10:20→23:39)
--- NOTE | 2018-08-31 11:56 | History & Physical-Hospitalist ---
History of Present Illness HPI/Chief Complaint CC: Sepsis HPI: This is a very medically complicated 67yoWF clinic patient of Dr Garcia who was recently at [facility] due to severe sepsis from nephrostomy tube dysfunction and dx with DVT during that hospital stay who presented to the ER with fever and fatigue and was found to have UTI and elevated LFT's with Acute on chronic renal failure with hyponatremia and hyperkalemia and elevated AP. Currently she is doing better since abx given along with aggressive IVF. When I walk in she has her eye cover on resting comfortably. Dr Ferguson was consulted for small amount of rectal bleeding noted yesterday along with elevated LFT especially AP given the fact of prior choly. USG performed and reviewed. Tolerating Vanc and Alla. Source: patient, RN/MD Exam Limitations: other (not forthcoming with information) Date Seen 08/31/18 Time Seen by a Provider: 11:30 Attending Physician Jeny Garcia MD PCP Jeny Garcia MD Referring Physician Date of Admission Aug 30, 2018 at 16:45 Home Medications & Allergies Home Medications Reviewed patient Home Medication Reconciliation performed by pharmacy medication reconciliations site technician and/or nursing. Patients Allergies have been reviewed. Allergies Allergies Coded Allergies codeine (Unverified Allergy, Unknown, N/V, 08/14/18) Past Yjvdzgt-Ygzgea-Vsiqjm Hx Past Med/Social Hx: Reviewed Nursing Past Med/Soc Hx, Reviewed and Corrections made Patient Social History Alcohol Use: Denies Use Recreational Drug Use: No Smoking Status: Current Everyday Smoker Type Used: Cigarettes Physical Abuse Screen: No Sexual Abuse: No Recent Foreign Travel: No Contact w/other who traveled: No Recent Hopitalizations: Yes (IN JUN 2018) Recent Infectious Disease Expo: No Immunizations Up To Date Date of Pneumonia Vaccine: Sep 06, 2010 Date of Influenza Vaccine: Aug 12, 2018 Past Medical History Surgeries: Abdominal (EGD), Gallbladder Reproductive: No Genitourinary: Bladder Infection, Renal Failure Endocrine: Hypothyroidsim Psychosocial: Depression History of Blood Disorders: No Family History Hypertension Review of Systems Constitutional: see HPI, chills, dizziness, fever, malaise, weakness EENTM: no symptoms reported Respiratory: no symptoms reported Cardiovascular: no symptoms reported Gastrointestinal: heartburn, loss of appetite, melena, nausea, vomiting Genitourinary: decreased output, pain Musculoskeletal: back pain Skin: no symptoms reported Psychiatric/Neurological: No Symptoms Reported All Other Systems Reviewed Negative Unless Noted: Yes Physical Exam Physical Exam Vital Signs Vital Signs - First Documented 08/30/18 14:03 Temp 98.3 Pulse 101 Resp 18 B/P (MAP) 69/51 (57) Pulse Ox 99 O2 Delivery Room Air Capillary Refill : Less Than 3 Seconds Height, Weight, BMI Height: 5'5.00" Weight: 165lbs. 0.0oz. 74.329229fb; 27.5 BMI Method:Estimated General Appearance: No Apparent Distress, WD/WN, Chronically ill, Thin Eyes: Bilateral Eye Normal Inspection, Bilateral Eye PERRL HEENT: PERRL/EOMI, Normal ENT Inspection, Pharynx Normal Neck: Full Range of Motion, Normal Inspection, Non Tender, Supple, Carotid Bruit Respiratory: Chest Non Tender, Lungs Clear, Normal Breath Sounds, No Accessory Muscle Use, No Respiratory Distress Cardiovascular: Regular Rate, Rhythm, No Edema, No Gallop, No JVD, No Murmur, Normal Peripheral Pulses Gastrointestinal: Normal Bowel Sounds, No Organomegaly, No Pulsatile Mass, Non Tender, Soft Back: Normal Inspection, No CVA Tenderness, No Vertebral Tenderness Extremity: Normal Capillary Refill, Normal Inspection, Normal Range of Motion, Non Tender, No Calf Tenderness, No Pedal Edema Neurologic/Psychiatric: Alert, Oriented x3, No Motor/Sensory Deficits, Depressed Affect Skin: Normal Color, Warm/Dry Lymphatic: No Adenopathy Results Results/Procedures Labs Laboratory Tests 08/30/18 14:18 08/30/18 18:40 08/31/18 00:00 08/31/18 03:09 08/31/18 06:18 08/31/18 12:00 Patient resulted labs reviewed. Assessment/Plan Admission Diagnosis Assessment: UTI Hypotension Dehydration Acute on chronic renal insufficiency Anemia Smoker Frail status Recent DVT Rectal bleeding not an anti-coagulation candidate currently PlanIV abx IVF ICU Await cultures Admission Status: Inpatient Order (span 2 midnights) Reason for Inpatient Admission: UTI wtih nephrostomy tubes in place in need of at least 3 days inpt Diagnosis/Problems Diagnosis/Problems (1) Urinary tract infection Status: Acute Qualifiers: Urinary tract infection type: catheter-associated UTI Indwelling urinary catheter type: nephrostomy catheter Encounter type: subsequent encounter Qualified Codes: T83.512D - Infection and inflammatory reaction due to nephrostomy catheter, subsequent encounter; N39.0 - Urinary tract infection, site not specified (2) DVT (deep venous thrombosis) Status: Chronic Qualifiers: DVT location: lower extremity Affected thrombotic vein of extremity: unspecified vein of extremity Chronicity: unspecified Laterality: unspecified laterality Qualified Codes: I82.409 - Acute embolism and thrombosis of unspecified deep veins of unspecified lower extremity (3) Rectal bleeding Status: Acute (4) Smoker Status: Chronic (5) Frailty Status: Chronic (6) Nephrostomy status Status: Chronic (7) Nausea Status: Acute (8) Abnormal liver function Status: Acute (9) Hypokalemia Status: Acute (10) Hypovolemia Status: Acute (11) GERD (gastroesophageal reflux disease) Status: Chronic Qualifiers: Esophagitis presence: without esophagitis Qualified Codes: K21.9 - Gastro- esophageal reflux disease without esophagitis Clinical Quality Measures DVT/VTE Risk/Contraindication: Risk Factor Score Per Nursin RFS Level Per Nursing on Admit: 4+=Very High SHAWN KHANNA DO Aug 31, 2018 11:56
--- NOTE | 2018-08-31 12:09 | Consultation ---
History of Present Illness History of Present Illness Patient Consulted On(andres/time) 08/31/18 12:06 Date Seen by Provider: Aug 31, 2018 Time Seen by Provider: 12:06 Reason for Visit: nausea and hypokalemia History of Present Illness lady with ongoing urologic issues with recent onset of sepsis related to nephrostomy tubes, managed at [facility]. Currently admitted with hyperkalemia and elevated liver enzymes. There is a report of rectal bleeding and I have been asked to see her for further recommendations. Allergies and Home Medications Allergies Coded Allergies: codeine (Unverified Allergy, Unknown, N/V, 08/14/18) Home Medications Apixaban 5 Mg Tablet, 5 MG PO BID, (Reported) Docusate Sodium 100 Mg Tablet, 100 MG PO DAILY, (Reported) Levothyroxine Sodium 50 Mcg Tablet, 50 MCG PO DAILY, (Reported) Pantoprazole Sodium 40 Mg Tablet.dr, 40 MG PO DAILY, (Reported) [water pill] , 1 TAB PO DAILY, (Reported) Patient Home Medication List Home Medication List Reviewed: Yes Past Jwhwevs-Xcyfym-Dntsey Hx Past Med/Social Hx: Reviewed and Corrections made Patient Social History Alcohol Use: Denies Use Recreational Drug Use: No Smoking Status: Current Everyday Smoker Type Used: Cigarettes Recent Foreign Travel: No Contact w/Someone Who Travel: No Recent Infectious Disease Expo: No Recent Hopitalizations: Yes (IN JUN 2018) Immunizations Up To Date Date of Pneumonia Vaccine: Sep 06, 2010 Date of Influenza Vaccine: Aug 12, 2018 Past Medical History Surgeries: Yes (BILAT NEPHROSTOMY TUBES) Abdominal (EGD), Gallbladder Respiratory: No Cardiac: No Neurological: No Reproductive Disorders: No Genitourinary: Yes (BILAT UROSTOMYS) Gastrointestinal: Yes (HX OF ULCER 5 YRS AGO, gastritis, duodenitis) Musculoskeletal: No Endocrine: Yes Hypothyroidsim Cancer: No Psychosocial: Yes Depression Blood Disorders: No Review of Systems-General Constitutional: malaise, weakness EENTM: no symptoms reported Respiratory: cough Cardiovascular: no symptoms reported Gastrointestinal: see HPI Genitourinary: see HPI Musculoskeletal: joint pain Skin: no symptoms reported Psychiatric/Neurological: No Symptoms Reported Physical Exam-General Problems Physical Exam Vital Signs Vital Signs - First Documented 08/30/18 14:03 Temp 98.3 Pulse 101 Resp 18 B/P (MAP) 69/51 (57) Pulse Ox 99 O2 Delivery Room Air Capillary Refill : Less Than 3 Seconds General Appearance: mild distress Respiratory: lungs clear Cardiovascular: regular rate, rhythm Gastrointestinal: non tender, soft Rectal: deferred Back: other Neurologic/Psychiatric: alert Skin: warm/dry Comments bilateral nephrostomy tubes in place. No tenderness around the exit site. Assessment/Plan Assessment/Plan Admission Diagnosis/Plan lady with elevated liver enzymes. Common bile duct 11 mm in diameter. Previous cholecystectomy. Nausea and vomiting requiring nasogastric tube for symptom relief. Rectal bleeding with reports of colonoscopy performed elsewhere within the past 2-3 months. At this point, it is reasonable to continue supportive management, replace electrolytes and monitor her closely. I have requested the colonoscopy report to be sent over to us from the outside facility. Admission Status: Inpatient Order (span 2 midnights) Reason for Inpatient Admission: ICU care expected to last longer than 2 days Clinical Quality Measures DVT/VTE Risk/Contraindication: Risk Factor Score Per Nursin RFS Level Per Nursing on Admit: 4+=Very High HERMAN JIANG MD Aug 31, 2018 12:09
--- NOTE | 2018-08-31 12:36 | Diagnostic Imaging Report ---
INDICATION: Enteric tube placement. COMPARISON: 08/31/2018. DISCUSSION: Single portable upright view of the chest was obtained. New enteric tube tip in the gastric body in good position. Stable normal heart size. No focal consolidation, pleural fluid, or pneumothorax. No osseous abnormality. IMPRESSION: 1. New enteric tube tip in the gastric body. Dictated by: Dictated on workstation # [id number]
--- NOTE | 2018-08-31 12:37 | Diagnostic Imaging Report ---
Indication: Dyspnea. Time of exam: 4:29 AM Comparison is made with prior chest from one day earlier. The heart size is normal. The pulmonary vascularity is unremarkable. The lungs are clear. No infiltrate, effusion or pneumothorax is detected. Impression: No acute cardiopulmonary process is detected. Dictated by: Dictated on workstation # [id number]
[2018-08-31 12:38] LABS: ALBUMIN 3.1 GM/DL (3.2-4.5); BILIRUBIN,DIRECT 2.8 MG/DL (0.0-0.3); BILIRUBIN,INDIRECT 0.6 MG/DL; BILIRUBIN,TOTAL 3.4 MG/DL (0.1-1.0); TOTAL PROTEIN 5.7 GM/DL (6.4-8.2)
[2018-08-31] MEDS ORDERED: CHLORASEPTIC SPRAY 177 ML LIQUID MC PRN (14:00)
[2018-08-31] MEDS ORDERED: TROUGH ORDER-PHARMACY XX NR (17:30)
[2018-08-31 17:38] LABS: HEMOGLOBIN 8.8 G/DL (11.5-16.0)
--- NOTE | 2018-08-31 17:50 | Diagnostic Imaging Report ---
INDICATION: Pancreatitis. EXAMINATION: Ultrasound of the pancreas. FINDINGS: Liver is grossly normal in size without focal lesions. There is some intrahepatic biliary ductal dilatation. Gallbladder is surgically absent. Common bile duct measures 1.2 cm. There is perihepatic ascites. Pancreas is largely obscured by bowel gas. Right kidney is normal. IMPRESSION: 1. Intrahepatic and extrahepatic biliary ductal dilatation with common bile duct measuring up to 1.3 cm. 2. Previous cholecystectomy. 3. Pancreas is largely obscured by bowel gas. Dictated by: Dictated on workstation # [id number]
[2018-08-31] MEDS ORDERED: AMPICILLIN 1 GM/NS 50 ML IVPB IV SCH ×2 (18:15)
[2018-08-31] MEDS: VANCOMYCIN 1 GM/NS 250 ML IVPB IV SCH ×2 (18:50)
[2018-08-31] MEDS ORDERED: fentaNYL INJECTION 100 MCG/2 ML AMP IVP PRN (19:00)
[2018-09-01] VITALS (25 sets, daily range): BP systolic 92–115; BP diastolic 60–79
[2018-09-01 00:33] LABS: HEMOGLOBIN 9.4 G/DL (11.5-16.0)
[2018-09-01] MEDS: fentaNYL INJECTION 100 MCG/2 ML AMP IVP PRN ×7 (00:40→07:35)
[2018-09-01 03:04] LABS: BASOPHILS % (AUTO) 0 % (0-10); EOSINOPHILS % (AUTO) 0 % (0-10); HEMATOCRIT 29 % (35-52); HEMOGLOBIN 9.4 G/DL (11.5-16.0); LYMPHOCYTES # (AUTO) 0.9 X 10^3 (1.0-4.0); LYMPHOCYTES % (AUTO) 13 % (12-44); MEAN CORPUSCULAR HEMOGLOBIN 28 PG (25-34); MEAN CORPUSCULAR HGB CONC 33 G/DL (32-36); MEAN CORPUSCULAR VOLUME 87 FL (80-99); MEAN PLATELET VOLUME 8.5 FL (7.4-10.4); MONOCYTES # (AUTO) 0.6 X 10^3 (0.0-1.0); MONOCYTES % (AUTO) 8 % (0-12); NEUTROPHILS # (AUTO) 5.7 X 10^3 (1.8-7.8); NEUTROPHILS % (AUTO) 79 % (42-75); PLATELET COUNT 258 10^3/uL (130-400); RED BLOOD COUNT 3.31 10^6/uL (4.35-5.85); RED CELL DISTRIBUTION WIDTH 17.9 % (10.0-14.5); WHITE BLOOD COUNT 7.2 10^3/uL (4.3-11.0)
[2018-09-01 03:21] LABS: CALCIUM 8.4 MG/DL (8.5-10.1); CREATININE SERUM 1.3 MG/DL (0.60-1.30); MAGNESIUM 1.9 MG/DL (1.8-2.4); PHOSPHORUS 2.8 MG/DL (2.3-4.7); POTASSIUM 3.4 MMOL/L (3.6-5.0)
[2018-09-01] MEDS: POTASSIUM CL 10MEQ/50ML IVPB 50 ML IV SCH ×3 (04:23→05:24)
[2018-09-01] MEDS: LACTATED RINGERS 1,000 ML IV SCH ×3 (05:23→20:47)
[2018-09-01] MEDS: KCL 20 MEQ TAB (K-DUR) PO SCH (05:24)
[2018-09-01] MEDS: MEROPENEM 500 MG in NS (IVPB) 100 ML IV SCH ×3 (05:24→22:44)
[2018-09-01] MEDS: MAGNESIUM 1 GM/100 ML IVPB 100 ML IV SCH (05:24)
--- NOTE | 2018-09-01 05:34 | Pulmonary Progress Note ---
Subjective Time Seen by a Provider: 05:40 Subjective/Events-last exam NG tube has improved patients nausea. she denies abdominal pain however does complain of hip pain. Sepsis Event Evaluation Height, Weight, BMI Height: 5'5.00" Weight: 165lbs. 0.0oz. 74.337993hd; 27.5 BMI Method:Estimated Focused Exam Lactate Level 08/30/18 14:18: Lactic Acid Level 1.36 Exam Exam Vital Signs Date Time Temp Pulse Resp B/P (MAP) Pulse Ox O2 Delivery O2 Flow Rate FiO2 09/01/18 05:00 80 16 97/67 (77) 97 Room Air 09/01/18 04:00 Room Air 09/01/18 04:00 81 17 95/62 (73) 97 Room Air 09/01/18 03:58 99.2 09/01/18 03:00 86 15 99/70 (80) 95 Room Air 09/01/18 02:00 81 20 97/60 (72) 96 Room Air 09/01/18 01:00 83 09/01/18 01:00 82 14 100/64 (76) 96 Room Air 09/01/18 00:00 87 20 92/63 (73) 90 Room Air 09/01/18 00:00 Room Air 08/31/18 23:45 99.3 08/31/18 23:00 87 16 103/70 (81) 96 Room Air 08/31/18 22:00 89 17 99/62 (74) 94 Room Air 08/31/18 21:00 86 18 101/65 (77) 96 Room Air 08/31/18 20:00 Room Air 08/31/18 20:00 99.3 87 18 96/65 (75) 95 Room Air 08/31/18 19:00 87 08/31/18 19:00 85 17 113/69 (84) 97 Room Air 08/31/18 18:00 87 18 99/69 (79) 96 Room Air 08/31/18 17:00 89 20 111/67 (82) 98 Room Air 08/31/18 16:00 92 22 101/70 (80) 97 Room Air 08/31/18 15:50 Room Air 08/31/18 15:00 86 18 107/67 (80) 98 Room Air 08/31/18 14:00 88 18 109/68 (82) 100 Room Air 08/31/18 13:00 86 18 105/66 (79) 98 Room Air 08/31/18 13:00 86 08/31/18 12:00 98 15 101/74 (83) 98 Room Air 08/31/18 12:00 98 Room Air 08/31/18 11:00 108 10 105/72 (83) 95 Room Air 08/31/18 10:00 89 10 106/76 (86) 100 Room Air 08/31/18 09:00 97 16 108/76 (87) 100 Room Air 08/31/18 08:00 89 18 110/67 (81) 97 Room Air 08/31/18 08:00 98 Room Air 08/31/18 07:00 82 08/31/18 07:00 81 20 104/65 (78) 98 Room Air 08/31/18 06:00 89 16 11/65 (47) 96 Room Air I & O 09/01/18 07:00 Intake Total 2610 ml Output Total 2510 ml Balance 100 ml Height & Weight Height: 5'5.00" Weight: 165lbs. 0.0oz. 74.089317gi; 27.5 BMI Method:Estimated General Appearance: No Apparent Distress, WD/WN, Chronically ill, Thin HEENT: PERRL/EOMI, Normal ENT Inspection, Pharynx Normal Neck: Full Range of Motion, Normal Inspection, Non Tender, Supple, Carotid Bruit Respiratory: Chest Non Tender, Lungs Clear, Normal Breath Sounds, No Accessory Muscle Use, No Respiratory Distress Cardiovascular: Regular Rate, Rhythm, No Edema, No Gallop, No JVD, No Murmur, Normal Peripheral Pulses Capillary Refill: Less Than 3 Seconds Gastrointestinal: non tender, soft Extremity: Normal Capillary Refill, Normal Inspection, Normal Range of Motion, Non Tender, No Calf Tenderness, No Pedal Edema Neurologic/Psychiatric: Alert, Oriented x3, No Motor/Sensory Deficits, Depressed Affect Skin: Normal Color, Warm/Dry Lymphatic: No Adenopathy Results Lab Laboratory Tests 08/30/18 14:18 08/30/18 18:40 08/31/18 00:00 08/31/18 03:09 08/31/18 06:18 08/31/18 12:00 08/31/18 17:30 09/01/18 00:26 09/01/18 02:46 Assessment/Plan Assessment/Plan UTI with hx nephrostomy tubes -Johnston cultures pending - merrem and vanco Hip pain -pt is getting Fentanyl pushes PRN Acute on chronic renal failure -improved -IVF and monitor Hypokalemia- -replace Hypotensive with dehydration -IVF currently LR at 150cc/hr -give another liter bolus pancreatitis elevated LFTs with elevated alk phos -Abdominal US reviewed however only the liver was done. Pancreatic US is limited secondary to gas -renal function is improved will check CT of abdomen and pelvis r/o mass -Check Ca19-9 - pending -surgery is also following -Will continue to monitor Nausea -s/p NG tube which has helped however pt is having a lot of NG out put. -Phenergan small amount of ascites RUBY ARTEAGA DO Sep 01, 2018 5:34 am
[2018-09-01 06:25] LABS: HEMOGLOBIN 8.9 G/DL (11.5-16.0)
[2018-09-01] MEDS ORDERED: HYDROmorphone 2 MG/ML VIAL (DILAUDID) IV PRN (08:00)
[2018-09-01] MEDS: HYDROmorphone 2 MG/ML VIAL (DILAUDID) IV PRN ×2 (08:58→14:14)
[2018-09-01] MEDS ORDERED: IOHEXOL 350 MG/ML 100 ML (OMNIPAQUE 350) VIAL IV ONE (09:00)
[2018-09-01] MEDS ORDERED: NS 250 ML (IVPB) BAG IV ONE (09:00)
--- NOTE | 2018-09-01 09:20 | Diagnostic Imaging Report ---
INDICATION: Dyspnea COMPARISON: August 31, 2018. TECHNIQUE: Single radiograph of the chest dated September 01, 2018. FINDINGS: Enteric catheter is again identified and stable. The cardiac silhouette is within normal limits in size. No significant pulmonary vascular congestion. The lungs are clear. No pleural effusion. No pneumothorax. No acute osseous abnormality. IMPRESSION: Stable examination without adverse change. Dictated by: Dictated on workstation # [id number]
[2018-09-01] MEDS ORDERED: MIDAZOLAM 2 MG/2 ML (VERSED) VIAL IV NR (09:37)
--- NOTE | 2018-09-01 10:56 | Diagnostic Imaging Report ---
PROCEDURE: CT chest, abdomen, and pelvis with contrast. TECHNIQUE: Multiple contiguous axial images were obtained through the chest, abdomen, and pelvis after the administration of intravenous contrast. DATE: September 01, 2018. COMPARISON: Chest radiograph September 01, 2018. CT abdomen pelvis May 26, 2009. INDICATION: 67-year-old female, nausea and vomiting. Hypokalemia. Evaluation for metastatic disease. FINDINGS: There is no identified pulmonary nodule or lung mass. There is a small right pleural effusion and a small left pleural effusion. There is very mild right lower lobe dependent atelectasis. There is no additional focal airspace consolidation. There is no identified central pulmonary embolus. The heart is not enlarged. There are coronary artery calcifications and additional areas of atherosclerotic disease. There is no identified abnormally enlarged mediastinal, hilar, or axillary lymph node which meets CT size criteria for adenopathy. The patient is status post cholecystectomy. There is severe intrahepatic bile duct dilation. The common bile duct measures up to 11 mm in diameter. There does appear to be abnormal attenuation within the lower aspect of the common bile duct near its duodenal insertion. There is dilation of the main pancreatic duct and the pancreatic head and proximal body of the pancreas up to 6 mm in diameter. There is abnormal wall thickening of the first, second, and third portions of duodenum. The spleen is not enlarged. The adrenal glands are unremarkable. There is a fluid collection adjacent to the left kidney likely relating to a sub-capsular collection such as abscess, seroma, or prior hematoma. The internal attenuation is low. This measures 2.2 x 4.1 cm in size. There are bilateral nephrostomy tubes. There is no hydronephrosis. There is diffuse urinary bladder wall thickening. There is a Lopes catheter within the urinary bladder. There is essentially diffuse abnormal wall thickening of the colon. As mentioned above, there is nonspecific wall thickening of the first through third portions of duodenum. There is no abnormal distention of the intestinal tract. There is an enteric tube within the stomach. There is no free intraperitoneal air. There is a large volume ascites. There is high-grade narrowing of the right and left common iliac arteries. There is no identified abnormally enlarged lymph node within the abdomen or pelvis which meets CT size criteria for adenopathy. There is diffuse subcutaneous edema. There are multilevel degenerative changes of the spine. There is no identified destructive bone lesion. IMPRESSION: CT CHEST, ABDOMEN AND PELVIS. 1. Severe intrahepatic bile duct dilation, dilation of the common bile duct, and dilation of the main pancreatic duct with abnormal appearing opacification in the region of the lower third of the common bile duct as well as abnormal wall thickening of the first, second, and third portions of duodenum. This does raise concern for obstructing process in the region of the ampulla which potentially could reflect a non CT visible stone or ampullary mass. Further workup recommended. 2. Additional diffuse colonic wall thickening which may potentially reflect an infectious or inflammatory colitis. Ischemic etiologies considered less likely given the distribution. The long segment nature would be suggesting against malignant etiology. 3. Large volume ascites. 4. High-grade narrowing of the bilateral common iliac arteries. 5. Nonspecific prominent diffuse urinary bladder wall thickening. 6. Subcapsular left perinephric fluid collection which may relate to seroma, abscess, or chronic hematoma measuring 2.2 x 4.1 cm in size. Bilateral nephrostomy tubes are present. 7. Small bilateral pleural effusions. 8. No evidence of malignancy at the level of the chest. Dictated by: Dictated on workstation # [id number]
[2018-09-01 11:45] LABS: BILIRUBIN,DIRECT 4.4 MG/DL (0.0-0.3); BILIRUBIN,TOTAL 5.4 MG/DL (0.1-1.0); TOTAL PROTEIN 5.3 GM/DL (6.4-8.2)
--- NOTE | 2018-09-01 11:50 | Progress Note-Hospitalist ---
Subjective HPI/CC On Admission Date Seen by Provider: Sep 01, 2018 Time Seen by Provider: 11:15 CC: Sepsis HPI: This is a very medically complicated 67yoWF clinic patient of Dr Garcia who was recently at [facility] due to severe sepsis from nephrostomy tube dysfunction and dx with DVT during that hospital stay who presented to the ER with fever and fatigue and was found to have UTI and elevated LFT's with Acute on chronic renal failure with hyponatremia and hyperkalemia and elevated AP. Currently she is doing better since abx given along with aggressive IVF. When I walk in she has her eye cover on resting comfortably. Dr Ferguson was consulted for small amount of rectal bleeding noted yesterday along with elevated LFT especially AP given the fact of prior choly. USG performed and reviewed. Tolerating Vanc and Alla. Subjective/Events-last exam CT scan obtained by Dr. Valdivia since creatinine had improved to 1.3 revealed multiple abnormalities including possible pancreatic mass causing obstruction Liver enzymes are pending but I suspect those to be about the same as yesterday Conferred with Dr. Ferguson who will update the family on these findings and it would be prudent as long as primary care provider supportive of this to transfer up to if that is what Dr. Garcia decides to do tomorrow since there is no emergency to do it today Tolerating vancomycin and meropenem Replacing potassium Fentanyl discontinued since noneffective and started Dilaudid which is helping a great deal No significant rectal bleeding but she did have a small BM Updated patient and her sister regarding the answers to 10 minutes of questions Nephrostomy tubes draining clear urine Sister updated me on the fact that she had severe gastritis and a did a bladder cystoscopy and performed multiple biopsies that showed multiple lesions Review of Systems General: Fatigue, Malaise Gastrointestinal: Abdominal Pain Musculoskeletal: back pain Focused Exam Lactate Level 08/30/18 14:18: Lactic Acid Level 1.36 Objective Exam Vital Signs Vital Signs Date Time Temp Pulse Resp B/P (MAP) Pulse Ox O2 Delivery O2 Flow Rate FiO2 09/01/18 09:00 94 16 106/72 (83) 95 Room Air 09/01/18 08:00 99.8 Capillary Refill : Less Than 3 Seconds General Appearance: No Apparent Distress, WD/WN, Chronically ill, Cachetic Respiratory: Chest Non Tender, Lungs Clear, No Accessory Muscle Use, No Respiratory Distress, Decreased Breath Sounds Cardiovascular: Regular Rate, Rhythm, No Edema, No Gallop, No JVD, No Murmur, Normal Peripheral Pulses Gastrointestinal: Normal Bowel Sounds, Soft Back: Decreased Range of Motion Extremity: Normal Capillary Refill, Normal Inspection, Normal Range of Motion, Non Tender, No Calf Tenderness, No Pedal Edema Neurologic/Psychiatric: Alert, Oriented x3, No Motor/Sensory Deficits, Normal Mood/Affect Skin: Normal Color, Warm/Dry Lymphatic: No Adenopathy Results/Procedures Lab Laboratory Tests 08/31/18 12:00 08/31/18 17:30 09/01/18 00:26 09/01/18 02:46 09/01/18 06:18 Patient resulted labs reviewed. Assessment/Plan Assessment and Plan Assess & Plan/Chief Complaint Assessment: UTI maintained on vancomycin and meropenem Hypotension placed on aggressive IV fluids now resolved Obstructive process likely pancreatic mass noted on CT scan Frail and thin status consistent with neoplastic process likely pancreatic Anemia Hypokalemia Gastritis Rectal bleeding precluding use of anticoagulations currently Remote DVT Plan: Maintained on IV antibiotics Continue IV fluids Replace potassium May ultimately require [facility] transfer for obstructive process if it indeed is a pancreatic mass may need to biopsy Review pending liver enzymes Diagnosis/Problems Diagnosis/Problems (1) Urinary tract infection Status: Acute Qualifiers: Urinary tract infection type: catheter-associated UTI Indwelling urinary catheter type: nephrostomy catheter Encounter type: subsequent encounter Qualified Codes: T83.512D - Infection and inflammatory reaction due to nephrostomy catheter, subsequent encounter; N39.0 - Urinary tract infection, site not specified (2) DVT (deep venous thrombosis) Status: Chronic Qualifiers: DVT location: lower extremity Affected thrombotic vein of extremity: unspecified vein of extremity Chronicity: unspecified Laterality: unspecified laterality Qualified Codes: I82.409 - Acute embolism and thrombosis of unspecified deep veins of unspecified lower extremity (3) Rectal bleeding Status: Acute (4) Smoker Status: Chronic (5) Frailty Status: Chronic (6) Nephrostomy status Status: Chronic (7) Nausea Status: Acute (8) Abnormal liver function Status: Acute (9) Hypokalemia Status: Acute (10) Hypovolemia Status: Acute (11) GERD (gastroesophageal reflux disease) Status: Chronic Qualifiers: Esophagitis presence: without esophagitis Qualified Codes: K21.9 - Gastro- esophageal reflux disease without esophagitis (12) Gastritis Status: Chronic Qualifiers: Gastritis type: unspecified gastritis Chronicity: unspecified Gastritis bleeding: presence of bleeding unspecified Qualified Codes: K29.70 - Gastritis, unspecified, without bleeding (13) Pancreatic mass Status: Acute (14) Obstructive cholestatic liver disease Status: Acute (15) Intra-abdominal adhesions Status: Chronic (16) Lesion of bladder Status: Chronic Clinical Quality Measures DVT/VTE Risk/Contraindication: Risk Factor Score Per Nursin RFS Level Per Nursing on Admit: 4+=Very High SHAWN KHANNA DO Sep 01, 2018 11:50
--- NOTE | 2018-09-01 11:58 | Progress Note (SOAP) ---
Subjective Date Seen by a Provider: Sep 01, 2018 Time Seen by a Provider: 11:55 Subjective/Events-last exam remains jaundiced with elevation of liver function tests. CT scan informs intra -and extrahepatic biliary dilatation with ascites and concerning changes around the head of the pancreas. Neoplastic process needs to be considered and therefore endoscopic ultrasound possibly followed by an ERCP would be appropriate. Review of Systems General: Fatigue, Malaise Pulmonary: No Dyspnea, No Cough, No Pleuritic Chest Pain Cardiovascular: No: Chest Pain, Palpitations, Orthopnea, Paroxysmal Noc. Dyspnea, Edema, Lt Headedness Gastrointestinal: Nausea, Abdominal Pain Genitourinary: No Dysuria, No Frequency, No Incontinence, No Hematuria, No Retention Musculoskeletal: No: other, neck pain, shoulder pain, arm pain, back pain, hand pain, leg pain, foot pain Neurological: Weakness Focused Exam Lactate Level 08/30/18 14:18: Lactic Acid Level 1.36 Objective Exam Vital Signs Date Time Temp Pulse Resp B/P (MAP) Pulse Ox O2 Delivery O2 Flow Rate FiO2 09/01/18 09:00 94 16 106/72 (83) 95 Room Air 09/01/18 08:00 99.8 09/01/18 08:00 Room Air 09/01/18 08:00 81 17 99/63 (75) 97 Room Air 09/01/18 07:00 84 17 102/65 (77) 98 Room Air 09/01/18 06:55 84 09/01/18 06:00 86 22 96/68 (77) 93 Room Air 09/01/18 05:00 80 16 97/67 (77) 97 Room Air 09/01/18 04:00 Room Air 09/01/18 04:00 81 17 95/62 (73) 97 Room Air 09/01/18 03:58 99.2 09/01/18 03:00 86 15 99/70 (80) 95 Room Air 09/01/18 02:00 81 20 97/60 (72) 96 Room Air 09/01/18 01:00 83 09/01/18 01:00 82 14 100/64 (76) 96 Room Air 09/01/18 00:00 87 20 92/63 (73) 90 Room Air 09/01/18 00:00 Room Air 08/31/18 23:45 99.3 08/31/18 23:00 87 16 103/70 (81) 96 Room Air 08/31/18 22:00 89 17 99/62 (74) 94 Room Air 08/31/18 21:00 86 18 101/65 (77) 96 Room Air 08/31/18 20:00 Room Air 08/31/18 20:00 99.3 87 18 96/65 (75) 95 Room Air 08/31/18 19:00 87 08/31/18 19:00 85 17 113/69 (84) 97 Room Air 08/31/18 18:00 87 18 99/69 (79) 96 Room Air 08/31/18 17:00 89 20 111/67 (82) 98 Room Air 08/31/18 16:00 92 22 101/70 (80) 97 Room Air 08/31/18 15:50 Room Air 08/31/18 15:00 86 18 107/67 (80) 98 Room Air 08/31/18 14:00 88 18 109/68 (82) 100 Room Air 08/31/18 13:00 86 18 105/66 (79) 98 Room Air 08/31/18 13:00 86 08/31/18 12:00 98 15 101/74 (83) 98 Room Air 08/31/18 12:00 98 Room Air I & O 09/01/18 07:00 Intake Total 3810 ml Output Total 2970 ml Balance 840 ml Capillary Refill : Less Than 3 Seconds General Appearance: Chronically ill Gastrointestinal: non tender, soft Skin: Jaundice Other comments lady with nausea and vomiting. Ascites and dilated common bile duct. Elevated liver enzymes. pre-existing nephrostomy. Results Lab Laboratory Tests 08/31/18 12:00: Hemoglobin 9.0L, Hematocrit 27L, Total Bilirubin 3.4H, Direct Bilirubin 2.8H, Indirect Bilirubin 0.6, Aspartate Amino Transf (AST/SGOT) 138H, Alanine Aminotransferase (ALT/SGPT) 66H, Alkaline Phosphatase 753H, Total Protein 5.7L, Albumin 3.1L 08/31/18 17:30: Hemoglobin 8.8L, Hematocrit 27L, Vancomycin Level Trough 12.1 09/01/18 00:26: Hemoglobin 9.4L, Hematocrit 28L 09/01/18 02:46: Hemoglobin 9.4L, Hematocrit 29L, White Blood Count 7.2, Red Blood Count 3.31L, Mean Corpuscular Volume 87, Mean Corpuscular Hemoglobin 28, Mean Corpuscular Hemoglobin Concent 33, Red Cell Distribution Width 17.9H, Platelet Count 258, Mean Platelet Volume 8.5, Neutrophils (%) (Auto) 79H, Lymphocytes (%) (Auto) 13 , Monocytes (%) (Auto) 8, Eosinophils (%) (Auto) 0, Basophils (%) (Auto) 0, Neutrophils # (Auto) 5.7, Lymphocytes # (Auto) 0.9L, Monocytes # (Auto) 0.6, Eosinophils # (Auto) 0.0, Basophils # (Auto) 0.0, Sodium Level 137, Potassium Level 3.4L, Chloride Level 100, Carbon Dioxide Level 21, Anion Gap 16H, Blood Urea Nitrogen 16, Creatinine 1.30, Estimat Glomerular Filtration Rate 41, BUN/ Creatinine Ratio 12, Glucose Level 91, Calcium Level 8.4L, Phosphorus Level 2.8 , Magnesium Level 1.9 09/01/18 06:18: Hemoglobin 8.9L, Hematocrit 27L, Total Bilirubin 5.4#H, Direct Bilirubin 4.4H, Indirect Bilirubin 1.0, Aspartate Amino Transf (AST/SGOT) 134H, Alanine Aminotransferase (ALT/SGPT) 65H, Alkaline Phosphatase 742H, Total Protein 5.3L, Albumin 3.0L Microbiology 08/30/18 Blood Culture - Preliminary, Resulted No growth 08/30/18 Urine Culture - Final, Complete NO GROWTH Assessment/Plan Assessment/Plan Assess & Plan/Chief Complaint lady with elevated liver enzymes. Common bile duct 11 mm in diameter. Previous cholecystectomy. Nausea and vomiting requiring nasogastric tube for symptom relief. Rectal bleeding with reports of colonoscopy performed elsewhere within the past 2-3 months. At this point, it is reasonable to continue supportive management, replace electrolytes and monitor her closely. I have requested the colonoscopy report to be sent over to us from the outside facility. lady with elevated liver enzymes. Dilated intrahepatic biliary radicles , concern about lesion in the head of the pancreas. Requires further evaluation with an EUS, possibly followed by ERCP. Since she has been managed at [facility], it is reasonable to have her transferred back. I have discussed this with Dr. Jeny Garcia, the patient's primary care physician, who would initiate the process. Final Diagnosis obstructive jaundice. Ascites Clinical Quality Measures DVT/VTE Risk/Contraindication: Risk Factor Score Per Nursin RFS Level Per Nursing on Admit: 4+=Very High HERMAN JIANG MD Sep 01, 2018 11:58
[2018-09-01 12:53] LABS: HEMOGLOBIN 9.3 G/DL (11.5-16.0)
[2018-09-01] MEDS: NICOTINE 21 MG (NICODERM) PATCH TD SCH (18:09)
[2018-09-01] MEDS: VANCOMYCIN 1 GM/NS 250 ML IVPB IV SCH ×2 (18:10)
[2018-09-01 18:48] LABS: HEMOGLOBIN 9.5 G/DL (11.5-16.0)
[2018-09-01] MEDS ORDERED: diphenhydrAMINE 50 MG/ML INJ (BENADRYL) IV ONE ×2 (20:45)
[2018-09-01] MEDS ORDERED: NS (IVPB) 100 ML ONE (21:37)
[2018-09-01] MEDS ORDERED: fentaNYL (OMNICELL DRIP KIT ONLY) 250 MCG/5 ML AMP ONE (21:37)
[2018-09-01] MEDS ORDERED: NS IV 1000 ML 1,000 ML IV SCH (21:57)
[2018-09-01] MEDS ORDERED: NALOXONE 0.4 MG/ML 1 ML (NARCAN) VIAL IV PRN (22:00)
[2018-09-01] MEDS ORDERED: METOCLOPRAMIDE INJ 10 MG/2 ML (REGLAN) IV PRN (22:00)
[2018-09-01] MEDS ORDERED: diphenhydrAMINE 50 MG/ML INJ (BENADRYL) IV PRN (22:00)
[2018-09-01] MEDS ORDERED: fentaNYL INJECTION 1,000 MCG in NS (IVPB) 80 ML IV SCH (22:00)
[2018-09-01] MEDS: fentaNYL INJECTION 500 MCG in NS (IVPB) 90 ML INJ SCH (22:35)
[2018-09-02] VITALS (11 sets, daily range): BP systolic 92–113; BP diastolic 58–92
[2018-09-02 00:51] LABS: BASOPHILS % (AUTO) 0 % (0-10); EOSINOPHILS % (AUTO) 0 % (0-10); HEMATOCRIT 28 % (35-52); HEMOGLOBIN 9.4 G/DL (11.5-16.0); LYMPHOCYTES % (AUTO) 14 % (12-44); MEAN CORPUSCULAR HEMOGLOBIN 29 PG (25-34); MEAN CORPUSCULAR HGB CONC 34 G/DL (32-36); MEAN CORPUSCULAR VOLUME 88 FL (80-99); MEAN PLATELET VOLUME 8.5 FL (7.4-10.4); MONOCYTES # (AUTO) 0.5 X 10^3 (0.0-1.0); MONOCYTES % (AUTO) 7 % (0-12); NEUTROPHILS # (AUTO) 5.6 X 10^3 (1.8-7.8); NEUTROPHILS % (AUTO) 78 % (42-75); PLATELET COUNT 280 10^3/uL (130-400); RED CELL DISTRIBUTION WIDTH 18.3 % (10.0-14.5); WHITE BLOOD COUNT 7.2 10^3/uL (4.3-11.0)
[2018-09-02 01:07] LABS: BILIRUBIN,TOTAL 6.4 MG/DL (0.1-1.0); CALCIUM 8.8 MG/DL (8.5-10.1); CREATININE SERUM 1.21 MG/DL (0.60-1.30); PHOSPHORUS 2.9 MG/DL (2.3-4.7); POTASSIUM 3.6 MMOL/L (3.6-5.0); TOTAL PROTEIN 5.6 GM/DL (6.4-8.2)
[2018-09-02] MEDS: ONDANSETRON 4 MG/2 ML (SDV) Z0FRAN IV PRN ×2 (02:58→13:13)
[2018-09-02] MEDS: LACTATED RINGERS 1,000 ML IV SCH ×2 (03:17→09:25)
--- NOTE | 2018-09-02 05:18 | Pulmonary Progress Note ---
Subjective Time Seen by a Provider: 05:31 Subjective/Events-last exam No nausea since NG placed. RN reports 850cc of NG output. Sepsis Event Evaluation Height, Weight, BMI Height: 5'5.00" Weight: 165lbs. 0.0oz. 74.527742cg; 27.5 BMI Method:Estimated Focused Exam Lactate Level 08/30/18 14:18: Lactic Acid Level 1.36 Exam Exam Vital Signs Date Time Temp Pulse Resp B/P (MAP) Pulse Ox O2 Delivery O2 Flow Rate FiO2 09/02/18 05:00 92 15 97/64 (75) Room Air 09/02/18 04:00 94 13 100/64 (76) Room Air 09/02/18 03:00 95 15 92/65 (74) Room Air 09/02/18 02:00 98 16 113/66 (82) Room Air 09/02/18 01:00 96 09/02/18 01:00 96 17 92/61 (71) Room Air 09/02/18 00:51 96.9 09/02/18 00:00 Room Air 09/02/18 00:00 94 17 92/60 (71) Room Air 09/01/18 23:00 99 18 93/62 (72) 97 Room Air 09/01/18 22:00 91 19 106/62 (77) 97 Room Air 09/01/18 21:00 88 20 115/71 (86) 98 Room Air 09/01/18 20:00 92 20 102/70 (81) 96 Room Air 09/01/18 20:00 Room Air 09/01/18 19:00 88 09/01/18 19:00 98.0 09/01/18 19:00 95 21 94/63 (73) 94 Room Air 09/01/18 18:00 91 16 96/61 (73) 95 Room Air 09/01/18 17:00 88 14 106/68 (81) 96 Room Air 09/01/18 16:00 Room Air 09/01/18 16:00 98.7 09/01/18 16:00 92 13 99/73 (82) 93 Room Air 09/01/18 15:00 95 16 95/62 (73) 93 Room Air 09/01/18 14:00 100 17 114/73 (87) 94 Room Air 09/01/18 13:01 98 09/01/18 13:00 97 14 92/79 (83) 97 Room Air 09/01/18 12:00 99.2 09/01/18 12:00 Room Air 09/01/18 12:00 91 13 100/69 (79) 95 Room Air 09/01/18 11:00 98 23 113/75 (88) 95 Room Air 09/01/18 10:00 92 16 93/62 (72) 95 Room Air 09/01/18 09:00 94 16 106/72 (83) 95 Room Air 09/01/18 08:00 99.8 09/01/18 08:00 Room Air 09/01/18 08:00 81 17 99/63 (75) 97 Room Air 09/01/18 07:00 84 17 102/65 (77) 98 Room Air 09/01/18 06:55 84 09/01/18 06:00 86 22 96/68 (77) 93 Room Air I & O 09/02/18 07:00 Intake Total 2000 ml Output Total 1025 ml Balance 975 ml Height & Weight Height: 5'5.00" Weight: 165lbs. 0.0oz. 74.972257mt; 27.5 BMI Method:Estimated General Appearance: Anxious, Chronically ill HEENT: PERRL/EOMI, Normal ENT Inspection, Pharynx Normal Neck: Full Range of Motion, Normal Inspection, Non Tender, Supple, Carotid Bruit Respiratory: Chest Non Tender, Lungs Clear, No Accessory Muscle Use, No Respiratory Distress, Decreased Breath Sounds Cardiovascular: Regular Rate, Rhythm, No Edema, No Gallop, No JVD, No Murmur, Normal Peripheral Pulses Capillary Refill: Less Than 3 Seconds Gastrointestinal: non tender, soft, distended Extremity: Normal Capillary Refill, Normal Inspection, Normal Range of Motion, Non Tender, No Calf Tenderness, Pedal Edema Neurologic/Psychiatric: Alert, Oriented x3, No Motor/Sensory Deficits, Normal Mood/Affect Skin: Jaundice Lymphatic: No Adenopathy Results Lab Laboratory Tests 08/31/18 06:18 08/31/18 12:00 08/31/18 17:30 09/01/18 00:26 09/01/18 02:46 09/01/18 06:18 09/01/18 12:45 09/01/18 18:42 09/02/18 00:40 Assessment/Plan Assessment/Plan UTI with hx nephrostomy tubes -Johnston cultures negative thus far - merrem and D/C vanco Hip pain -pt is getting Fentanyl pushes PRN Acute on chronic renal failure -improved -IVF and monitor Hypokalemia- -will give 40meq KCL IV over 4hours Hypotensive -IVF currently LR at 150cc/hr -give another liter bolus pancreatitis elevated LFTs with elevated alk phos and hyperbilirubinemia -Ct of abdomen is suggestive of possible pancreatic mass -Probable transfer to [facility] for bx/endoscopy and ERCP needed. -Ca19-9 - pending -surgery is also following Nausea -s/p NG tube which has helped however pt is having a lot of NG out put. -PT has had 800ml of NG out put over the last 12 hours -Phenergan ascites and small pleural effusion RUBY ARTEAGA DO Sep 02, 2018 05:18
[2018-09-02] MEDS: MAGNESIUM 1 GM/100 ML IVPB 100 ML IV SCH (05:56)
[2018-09-02] MEDS: KCL 20 MEQ TAB (K-DUR) PO SCH (05:56)
[2018-09-02] MEDS: POTASSIUM CL 10MEQ/50ML IVPB 50 ML IV SCH ×5 (05:56→09:17)
[2018-09-02] MEDS: MEROPENEM 500 MG in NS (IVPB) 100 ML IV SCH (06:16)
--- NOTE | 2018-09-02 08:06 | Diagnostic Imaging Report ---
INDICATION: Dyspnea. Portable upright AP view of the chest is obtained with comparison made to study of 09/01/2018. FINDINGS: Heart size and pulmonary vascularity are within normal limits, and the lungs are clear, bilaterally. Nasogastric tube passes below the diaphragm. IMPRESSION: Unremarkable chest . Dictated by: Dictated on workstation # [id number]
[2018-09-02] MEDS: SENNA W/DOCUSATE (SENOKOT S) TABLET PO SCH ×2 (09:22→09:24)
[2018-09-02] MEDS: NICOTINE 21 MG (NICODERM) PATCH TD SCH (09:23)
--- NOTE | 2018-09-02 09:32 | Discharge Inst-Simple/Standard ---
Discharge Inst-Standard Discharge Medications New, Converted or Re-Newed RX: Other Patient Instructions/Follow Up Plan of Care/Instructions/FU: TRANSFER TO [facility] FOR UROLOGY, GASTROENTEROLOGY, IMMUNOLOGY Activity as Tolerated: Yes Discharge Diet: Other Diet (NPO) Planned Outpatient Orders/Ref. Pneu Vac Indicated: Yes JAVIER DISLA MD Sep 02, 2018 09:32
--- NOTE | 2018-09-02 09:47 | Discharge Summary ---
Diagnosis/Chief Complaint Date of Admission Aug 30, 2018 at 16:45 Date of Discharge Discharge Date: Sep 02, 2018 Discharge Time: 1000 Admission Diagnosis Admission Diagnosis UTI Hypotension Dehydration Acute on chronic renal insufficiency Anemia Smoker Frail status Recent DVT Rectal bleeding not an anti-coagulation candidate currently Discharge Diagnosis URINARY TRACT INFECTION HYPOTENSION DEHYDRATION ACUTE ON CHRONIC RENAL INSUFFICIENCY SEVERELY ELEVATED LIVER ENZYMES HYPERBILIRUBINEMIA ANEMIA RECTAL BLEEDING - ON CHRONIC ELIQUIS (HELD DURING HOSPITALIZATION) PANCREATIC LESION INTRAHEPATIC DUCTAL DILATION HX TOBACCOISM URETERAL DYSFUNCTION WITH BILATERAL NEPHROSTOMY TUBES ELEVATED CRP Reason Hospital Visit This is a very medically complicated 67yoWF clinic patient of Dr Disla who was recently at [facility] due to severe sepsis from nephrostomy tube dysfunction and dx with DVT during that hospital stay who presented to the ER with fever and fatigue and was found to have UTI and elevated LFT's with Acute on chronic renal failure with hyponatremia and hyperkalemia and elevated AP. Currently she is doing better since abx given along with aggressive IVF. When I walk in she has her eye cover on resting comfortably. Dr Jiang was consulted for small amount of rectal bleeding noted yesterday along with elevated LFT especially AP given the fact of prior choly. Discharge Summary Procedures: LIVER ULTRASOUND CT CHEST/ABD/PELVIS Consultations DR. JIANG - SURGEON DR. ARTEAGA - ICU ATTENDING - CRITICAL CARE/PULMONOLOGY Discharge Physical Examination Allergies: Coded Allergies: hydromorphone (Verified Allergy, Mild, itching, 09/01/18) Pt c/o itching all over body after taking dilaudid. codeine (Unverified Allergy, Unknown, N/V, 08/14/18) Vitals & I&Os Vital Signs Date Time Temp Pulse Resp B/P (MAP) Pulse Ox O2 Delivery O2 Flow Rate FiO2 09/02/18 08:00 98.8 09/02/18 08:00 Room Air 09/02/18 06:00 105 19 102/92 (95) 100 General Appearance: Alert, Oriented X3, Cooperative, Other (JAUNDICED) HEENT: Atraumatic, PERRLA, Mucous Memb Moist/[place] Respiratory: Clear to Auscultation, Normal Air Movement Cardiovascular: Regular Rate Abdominal: Normal Bowel Sounds, Soft, No Tenderness Extremities: Other (4+ PITTING EDEMA TO THIGHS) Skin: Other (JAUNDICE) Neuro: Normal Speech, Normal Tone, Cranial Nerves 3-12 NL Psych/Mental Status: Mental Status NL, Mood NL Hospital Course HOSPITAL DAY #1 - ICU ATTENDING NOTES FOLLOWS: UTI with hx nephrostomy tubes -Johnston cultures pending -Change Abx to merrem and vanco Anemia with rectal bleeding -Monitor H&H Acute on chronic renal failure -IVF and monitor Hypokalemia -replace Hypotensive with dehydration -IVF Elevated LFTs with elevated alk phos -Abdominal US reviewed -surgery is also following -Will continue to monitor Nausea -check amylase/Lipase small amount of ascites HOSPITAL DAY #2 - HOSPITALIST NOTE FOLLOWS:Assessment: UTI Hypotension Dehydration Acute on chronic renal insufficiency Anemia Smoker Frail status Recent DVT Rectal bleeding not an anti-coagulation candidate currently PlanIV abx IVF ICU Await cultures Admission Status: Inpatient Order (span 2 midnights) Reason for Inpatient Admission: UTI wtih nephrostomy tubes in place in need of at least 3 days inpt SURGICAL CONSULT NOTE FOLLOWS: lady with elevated liver enzymes. Common bile duct 11 mm in diameter. Previous cholecystectomy. Nausea and vomiting requiring nasogastric tube for symptom relief. Rectal bleeding with reports of colonoscopy performed elsewhere within the past 2-3 months. At this point, it is reasonable to continue supportive management, replace electrolytes and monitor her closely. I have requested the colonoscopy report to be sent over to us from the outside facility. HOSPITAL DAY #3 - UNCHANGED MANAGEMENT AT THIS TIME - EXCEPT FOR CT SCAN OF CHEST/ABD/PELVIS. - PT CONTINUED TO BE NPO AND ANTIBIOTICS REMAINED UNCHANGED. HOSPITAL DAY #4 - DAY OF TRANSFER TO [facility] - STEFANO HAS EXTENSIVE RENAL/UROLOGIC HISTORY WAS SEEN BY UROLOGIST WITH BLADDER SCAN, VOIDING SCAN, BIOPSIES ON 08/23/18 AT [facility] - THAT INFORMATION IS STILL PENDING. SHE REPORTS THAT SHE ASPIRATED WHILE HAVING HER PROCEDURE AT AND WAS KEPT OVERNIGHT DUE TO WORRY ABOUT HER RESPIRATORY STATUS AFTER ASPIRATION. SHE REPORTS THAT THEY DID AN EGD AND FOUND THAT SHE WAS NOT EMPTYING HER STOMACH AND SHE HAD FOOD CONTENTS IN HER STOMACH FROM THE NIGHT BEFORE HER PROCEDURE. - URETERAL DYSFUNCTION - PT IS TO BE TRANSFERRED BACK UP TO FOR FURTHER WORK-UP AND TREATMENT - UROLOGY WILL LIKELY BE CONSULTED DURING THIS HOSPITALIZATION. THE CT SCAN SHOWED INFLAMMATION VERSUS STONE VERSUS NEOPLASM AT THE [place]A OF HER PANCREAS AND SEVERE INTRAHEPATIC DUCTAL DILATION. TODAY HER TOTAL BILIRUBIN IS UP TO 6.4 - ON ADMISSION IT WAS 2.4 HER ALK PHOS, AST AND ALT ARE ALL STILL ELEVATED WITH THE ALK PHOS BEING THE MOST ELEVATED IN THE 730'S. THERE IS ALSO INFLAMMATION OF THE BOWEL WALL NOTED ON CT SCAN - SHE WILL NEED FURTHER WORK UP FOR THIS WITH ENDOSCOPIC ULTRASOUND AND POSSIBLE STENTING TO ALLEVIATE THE STRICTURES. WE DO NOT HAVE THE FACILITIES OR STAFF FOR THESE SPECIALIZED PROCEDURES. HX OF DVT - PT HAS BEEN ON ELIQUIS - SHE HAD RECTAL BLEEDING AND THIS MEDICATION HAS BEEN HELD DUE TO THE RECTAL BLEEDING. URINARY TRACT INFECTION - PT ON IV ANTIBIOTICS - WILL NEED CONTINUED - CULTURES ARE PENDING AT THIS TIME. PERIPHERAL EDEMA - CONTINUE WITH SUPPORTIVE CARE, ELEVATION OF LEGS. NAUSEA - DUE TO GASTROPARESIS - NG TUBE IN PLACE, PT NPO. WEIGHT LOSS - WITH POOR NUTRITIONAL STATUS - SHE HAS ONLY BEEN EATING CHICKEN NOODLE SOUP - LOW SODIUM - SHE WILL NEED NUTRITIONAL CONSULT WHEN UP AT . PT HAS MULTIPLE CO-MORBID CONDITIONS - POSSIBLY AUTO-IMMUNE PROCESS - WOULD APPRECIATE IF SHE HAD AN IMMUNOLOGIC WORK-UP AND CONSULT TO RHEUM/IMMUNO WHEN UP AT . DISCUSSED WITH STEFANO AND HER FRIEND CHARLES - I THINK THAT STEFANO NEEDS TO HAVE MORE OVERSIGHT TO THE CONTINUITY OF CARE AT [facility], SHE MAY NEED TO HAVE AN INTERNAL MEDICINE PHYSICIAN ASSIGNED TO HER ON HER TRANSFER FOR ASSISTANCE WITH COORDINATION OF THE DIFFERENT SPECIALISTS AT SINCE IT HAS BEEN DIFFICULT TO GET ALL OF THE INFORMATION TO WHAT IS HAPPENING WITH HER/TO HER AT IN MY CLINIC AND A [facility] PHYSICIAN IN AN OUTPATIENT CLINIC WILL HAVE ACCESS TO RECORDS THAT I DO NOT HAVE IN MY CLINIC. SHE WOULD LIKE TO CONTINUE TO RECEIVE CARE AT MY CLINIC IN [place] WHEN SHE IS HERE, BUT SHE SHOULD HAVE SOMEONE AT TO HELP NAVIGATE THAT SYSTEM WELL. Discharge Condition at discharge STABLE Instructions to patient/family Please see electronic discharge instructions given to patient. Discharge Medications Reviewed and agree with Discharge Medication list on patient's Discharge Instruction sheet Clinical Quality Measures DVT/VTE Risk/Contraindication: Risk Factor Score Per Nursin RFS Level Per Nursing on Admit: 4+=Very High JAVIER DISLA MD Sep 02, 2018 09:46
[2018-09-02] MEDS: fentaNYL INJECTION 500 MCG in NS (IVPB) 90 ML INJ SCH (10:14)
[2018-09-02] MEDS ORDERED: NICOTINE 21 MG (NICODERM) PATCH TD SCH (17:35)
== END 2018-09-02 13:25 | disposition short-term general hospital (02) | DRG 444 ==
LOC: EDUNIT# 13:21 → ER 13:22 → ICU 16:45
PROVIDERS: ADMIT Internal Medicine; ATTEND Family Medicine
PROC: 0D9670Z Drainage of Stomach with Drainage Device, Via Natural or Artificial Opening (ICD-10-PCS; principal; 2018-08-31)
DX: K83.1 Obstruction of bile duct (principal); K86.9 Disease of pancreas, unspecified; K85.90 Acute pancreatitis without necrosis or infection, unspecified; T83.512A Infection and inflammatory reaction due to nephrostomy catheter, initial encounter; N39.0 Urinary tract infection, site not specified; R18.8 Other ascites; N17.9 Acute kidney failure, unspecified; E87.1 Hypo-osmolality and hyponatremia; J90 Pleural effusion, not elsewhere classified; R64 Cachexia; I82.509 Chronic embolism and thrombosis of unspecified deep veins of unspecified lower extremity; E86.0 Dehydration; K31.84 Gastroparesis; K83.8 Other specified diseases of biliary tract; N28.9 Disorder of kidney and ureter, unspecified; E87.6 Hypokalemia; E86.1 Hypovolemia; I95.9 Hypotension, unspecified; K29.50 Unspecified chronic gastritis without bleeding; F17.210 Nicotine dependence, cigarettes, uncomplicated; M25.551 Pain in right hip; M25.552 Pain in left hip; R74.8 Abnormal levels of other serum enzymes; D50.0 Iron deficiency anemia secondary to blood loss (chronic); E03.9 Hypothyroidism, unspecified; K21.9 Gastro-esophageal reflux disease without esophagitis; N32.9 Bladder disorder, unspecified; N13.5 Crossing vessel and stricture of ureter without hydronephrosis; F32.9 Major depressive disorder, single episode, unspecified
CPT/HCPCS: 36415; 71045; 71260; 74018; 74177; 76705; 80048; 80053; 80076; 80202; 81000; 82150; 83605; 83690; 83735; 83880; 84100; 85014; 85018; 85025; 85027; 85610; 85730; 86141; 86301; 86703; 87040; 87088; 96361; 96365; 96366; 96367

== ENCOUNTER 2018-09-13 16:21 | Inpatient (IN) | payer OTHER, MEDICARE ==
[~2018-09-13] VITALS: Ht 165.1 cm; Wt 71.7 kg
[2018-09-13] MEDS ORDERED: GLYCOPYRROLATE 0.2 MG/ML (ROBINUL) 2 ML VIAL IV PRN (17:15)
[2018-09-13] MEDS ORDERED: PHARMACY TO DOSE IV SCH (17:15)
[2018-09-13] MEDS ORDERED: KETOROLAC 15 MG/ML VIAL IVP PRN (17:15)
[2018-09-13] MEDS ORDERED: PROCHLORPERAZINE 10 MG/2ML INJ (COMPAZINE) IV PRN (17:15)
[2018-09-13] MEDS ORDERED: SALIVA STIMULANT MOUTH SPRAY (BIOTENE) 1.5 OZ MM PRN (17:15)
[2018-09-13] MEDS ORDERED: fentaNYL PATCH 12 MCG (DURAGESIC) TD SCH (17:15)
[2018-09-13] MEDS ORDERED: BISACODYL 10 MG SUPP (DULCOLAX) PR PRN (17:15)
[2018-09-13] MEDS ORDERED: ACETAMINOPHEN 650 MG SUPP (TYLENOL) PR PRN (17:15)
[2018-09-13] MEDS ORDERED: RT-ALBUTEROL/IPRATROPIUM 3 ML (DUONEB) VIAL INH PRN (17:15)
[2018-09-13] MEDS ORDERED: ARTIFICAL TEARS 0.4 ML UNIT DOSE (REFRESH PLUS) OU PRN (17:15)
[2018-09-13] MEDS: NS IV 1000 ML 1,000 ML IV SCH (17:48)
[2018-09-13] MEDS: fentaNYL INJECTION 100 MCG/2 ML AMP IVP PRN (17:49)
[2018-09-13] MEDS: ONDANSETRON 4 MG/2 ML (SDV) Z0FRAN IVP SCH (20:55)
[2018-09-14] MEDS: fentaNYL INJECTION 100 MCG/2 ML AMP IVP PRN ×5 (01:40→12:10)
[2018-09-14] MEDS: ONDANSETRON 4 MG/2 ML (SDV) Z0FRAN IVP SCH ×7 (01:51→21:41)
[2018-09-14] MEDS: LORazepam INJ 2 MG/ML (ATIVAN) VIAL IVP PRN ×4 (04:11→21:41)
[2018-09-14] MEDS: PANTOPRAZOLE 40 MG (PROTONIX) VIAL IV SCH (09:17)
[2018-09-14] MEDS ORDERED: fentaNYL PATCH 25 MCG (DURAGESIC) TD SCH (11:00)
[2018-09-14] MEDS ORDERED: NICOTINE 14 MG (NICODERM) PATCH TD ONE (11:00)
--- NOTE | 2018-09-14 11:10 | History & Physical-Hospitalist ---
History of Present Illness HPI/Chief Complaint Mrs. 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 Upon my arrival she is a chronically ill-appearing white female who did not appear to be in acute distress. She did does report epigastric discomfort which she currently rates as 5 out of 10. She is little slow to respond but does answer questions appropriately. She denies shortness of breath and denies any other problems. After being told that she could not smoke in the hospital she is asking about when she can be discharged. Date Seen 09/14/18 Time Seen by a Provider: 11:04 Attending Physician Javier Garcia MD PCP Javier Garcia MD Referring Physician Date of Admission Sep 13, 2018 at 17:15 Home Medications & Allergies Home Medications Reviewed patient Home Medication Reconciliation performed by pharmacy medication reconciliations commercial maintenance technician and/or nursing. Patients Allergies have been reviewed. Allergies Allergies Coded Allergies hydromorphone (Verified Allergy, Mild, itching, 09/01/18) Pt c/o itching all over body after taking dilaudid. codeine (Unverified Allergy, Unknown, N/V, 08/14/18) Past Pxcjwcy-Sspwlf-Whjxnx Hx Past Med/Social Hx: Reviewed and Corrections made Patient Social History Alcohol Use: Denies Use Recreational Drug Use: No Smoking Status: Former Smoker Former Smoker, Quit: Jul 13, 2013 Type Used: Cigarettes Physical Abuse Screen: No Sexual Abuse: No Recent Foreign Travel: No Contact w/other who traveled: No Recent Hopitalizations: Yes (IN JUN 2018) Recent Infectious Disease Expo: No Immunizations Up To Date Date of Pneumonia Vaccine: Sep 06, 2010 Date of Influenza Vaccine: Aug 12, 2018 Seasonal Allergies Seasonal Allergies: No Past Medical History Surgeries: Abdominal, Gallbladder Reproductive: No Genitourinary: Bladder Infection, Renal Failure Endocrine: Hypothyroidsim Psychosocial: Depression History of Blood Disorders: No Family History Alzheimer's disease 19 FATHER, Onset:80 FH: breast cancer Hypertension Review of Systems Constitutional: see HPI Physical Exam Physical Exam Vital Signs Vital Signs - First Documented 09/13/18 18:17 Pulse Ox 90 O2 Delivery Nasal Cannula O2 Flow Rate 2.00 Capillary Refill : Height, Weight, BMI Height: 5'5.00" Weight: 158lbs. 0.0oz. [id number]; 26.3 BMI Method:Estimated General Appearance: No Apparent Distress, Chronically ill HEENT: Moist Mucous Membranes, Scleral Icterus (L), Scleral Icterus (R) Respiratory: No Accessory Muscle Use, No Respiratory Distress, Other (Chest clear anteriorly there are diminished breath sounds in both bases) Cardiovascular: Regular Rate, Rhythm, No Edema, No Gallop, No JVD, No Murmur, Normal Peripheral Pulses Gastrointestinal: Other (Abdomen distended bowel sounds present but hypoactive epigastric pain present without guarding or rebound. Extensive ascites makes appreciation of liver and spleen size difficult.) Extremity: Other (3+ bilateral lower extremity edema without erythema or cyanosis. No clubbing noted.) Neurologic/Psychiatric: Depressed Affect Results Results/Procedures Labs Patient resulted labs reviewed. Assessment/Plan Admission Diagnosis A/P 1. Advanced urothelial cell carcinoma with bilateral ureteral obstruction biliary obstruction and diffuse malignant ascites. Patient was transferred for pain management and hospice care. We will increase Duragesic patch to 25 g and continue hourly IV Duragesic with when necessary angiolytic medication. 2. Patient has had nausea significant at times will give Compazine scheduled 10 mg every 6. 3. Nicotine dependence will initiate nicotine patch for comfort. Admission Status: Inpatient Order (span 2 midnights) Reason for Inpatient Admission: See assessment and plan Critical Care Critically Ill Patient Copy Copies To 1: JAVIER GARCIA MD, MARK D MD Sep 14, 2018 11:10
[2018-09-14] MEDS ORDERED: FENTANYL PATCH REMOVAL TP ONE (11:15)
[2018-09-14] MEDS ORDERED: NS IV 1000 ML 1,000 ML IV SCH (12:05)
[2018-09-14] MEDS: PROCHLORPERAZINE 10 MG/2ML INJ (COMPAZINE) IV SCH ×3 (12:09→23:44)
[2018-09-14] MEDS ORDERED: ONDANSETRON 4 MG/2 ML (SDV) Z0FRAN IV PRN (12:15)
[2018-09-14] MEDS ORDERED: diphenhydrAMINE 50 MG/ML INJ (BENADRYL) IV PRN (12:15)
[2018-09-14] MEDS ORDERED: fentaNYL INJECTION 1,000 MCG in NS (IVPB) 80 ML IV SCH (12:15)
[2018-09-14] MEDS ORDERED: NALOXONE 0.4 MG/ML 1 ML (NARCAN) VIAL IV PRN (12:15)
[2018-09-14] MEDS ORDERED: METOCLOPRAMIDE INJ 10 MG/2 ML (REGLAN) IV PRN (12:15)
[2018-09-15] MEDS: ONDANSETRON 4 MG/2 ML (SDV) Z0FRAN IVP SCH ×3 (01:04→09:07)
[2018-09-15] MEDS: NS IV 1000 ML 1,000 ML IV SCH (01:56)
[2018-09-15] MEDS: LORazepam INJ 2 MG/ML (ATIVAN) VIAL IVP PRN ×2 (04:10→09:07)
[2018-09-15] MEDS: PROCHLORPERAZINE 10 MG/2ML INJ (COMPAZINE) IV SCH (05:15)
[2018-09-15] MEDS ORDERED: NICOTINE 14 MG (NICODERM) PATCH TD SCH (09:00)
[2018-09-15] MEDS ORDERED: SENNA W/DOCUSATE (SENOKOT S) TABLET PO SCH (09:00)
[2018-09-15] MEDS ORDERED: PATCH REMOVAL TP SCH (09:00)
[2018-09-15] MEDS: PANTOPRAZOLE 40 MG (PROTONIX) VIAL IV SCH (09:07)
[2018-09-15] MEDS ORDERED: HALOPERIDOL 5 MG/ML (HALDOL) AMP IV PRN (10:00)
--- NOTE | 2018-09-15 11:52 | Discharge Summary-Hospitalist ---
Discharge Summary Date of Admission Sep 13, 2018 at 17:15 Date of Discharge Discharge Date: Sep 15, 2018 Discharge Time: 11:48 Admission Diagnosis A/P 1. Advanced urothelial cell carcinoma with bilateral ureteral obstruction biliary obstruction and diffuse malignant ascites. Patient was transferred for pain management and hospice care. We will increase Duragesic patch to 25 g and continue hourly IV Duragesic with when necessary angiolytic medication. 2. Patient has had nausea significant at times will give Compazine scheduled 10 mg every 6. 3. Nicotine dependence will initiate nicotine patch for comfort. Comfort Measures/ End of Life Care: Hospice (Hospital) Time spent on discussion (min): 30 Date of : Sep 15, 2018 Time of : 10:30 Patient was admitted for comfort care due to advanced urothelial cell carcinoma with bilateral ureteral obstruction biliary obstruction and malignant ascites. She was placed on a fentanyl DUTY ENGINEER pump with significant improvement in pain control. While I was addressing the family in regards to end-of-life expectations in front of the patient who was sleeping and in no acute distress essentially unarousable she took her last breath during the end of our discussion with no evidence for distress. Discharge Diagnosis As per admission diagnosis Copy Copies To 1: JAVIER DISLA MD, MARK D MD Sep 15, 2018 11:52
[2018-09-16] MEDS ORDERED: FENTANYL PATCH REMOVAL TP SCH (17:14)
[2018-09-17] MEDS ORDERED: FENTANYL PATCH REMOVAL TP SCH (11:00)
== END 2018-09-15 12:21 | disposition expired | DRG 951 ==
LOC: 4TH 17:15
PROVIDERS: ADMIT Family Medicine; ATTEND Family Medicine
DX: Z51.5 Encounter for palliative care (principal); C67.9 Malignant neoplasm of bladder, unspecified; K83.1 Obstruction of bile duct; R18.0 Malignant ascites; Z66 Do not resuscitate; N13.5 Crossing vessel and stricture of ureter without hydronephrosis; R11.0 Nausea; F17.210 Nicotine dependence, cigarettes, uncomplicated; E03.9 Hypothyroidism, unspecified; F32.9 Major depressive disorder, single episode, unspecified